=== PATIENT | female | born 1950 | race Caucasian/White ===

== ENCOUNTER 2020-09-22 09:51 | Outpatient (REF) | payer MEDICARE, SELFPAY ==
--- NOTE | 2020-09-22 | US_ITS ---
EXAMINATION: US VENOUS ULTRASOUND WITH DOPPLER LOWER EXTREMITY, LEFT CLINICAL INFORMATION: Left knee pain. Rule out DVT. COMPARISON: None TECHNIQUE: Ultrasound of the deep veins is performed from the hip to the calf with compression sonography and color and pulse Doppler assessment. Spectral analysis with color-flow imaging is performed. FINDINGS: There is normal venous compression and respiratory variation and augmented flow. The visualized common femoral vein, superficial femoral vein, profunda femoral vein, popliteal vein, and the trifurcation region shows no evidence of deep venous thrombosis. There is no significant popliteal fossa cyst. Incidental note of duplicated femoral vein. If the patient's symptoms persist, followup ultrasound in 5 days 7 days might be of value to exclude proximal propagation from a non-visualized calf vein. US/US venous duplex LE IMPRESSION: No DVT demonstrated in the left lower extremity.
== END 2020-09-22 09:52 | disposition home or self-care (01) ==
LOC: HO.US 09:51
PROVIDERS: Visit Provider Nurse Practitioner Family
DX: I83.90 Asymptomatic varicose veins of unspecified lower extremity (principal); I87.2 Venous insufficiency (chronic) (peripheral); M25.562 Pain in left knee
CPT/HCPCS: 93971

== ENCOUNTER → 2020-10-14 09:24 | Outpatient (BNVA) | payer MEDICARE, SELFPAY | PROVIDERS: PCP Internal Medicine; Referring Provider Internal Medicine; Visit Provider Surgery Vascular Surgery | DX: I83.12 Varicose veins of left lower extremity with inflammation (principal) | CPT/HCPCS: 99202 ==

== ENCOUNTER 2020-12-28 08:31 | Outpatient (REF) | payer MEDICARE, SELFPAY | END 2020-12-28 08:32 | disposition home or self-care (01) | LOC: HO.MDS 08:31 | PROVIDERS: PCP Nurse Practitioner Family; Visit Provider Internal Medicine Medical Oncology | DX: D50.9 Iron deficiency anemia, unspecified (principal) | CPT/HCPCS: 96365; 96366; J1200; J1750 ==

== ENCOUNTER → 2021-01-10 11:35 | Outpatient (BNVA) | payer MEDICARE, SELFPAY | PROVIDERS: PCP Nurse Practitioner Family; Visit Provider Internal Medicine Gastroenterology | DX: Z13.89 Encounter for screening for other disorder (principal) | CPT/HCPCS: Q3014 ==

== ENCOUNTER 2021-03-29 11:39 | Outpatient (REF) | payer MEDICARE, MEDICAID, SELFPAY ==
--- NOTE | ~2021-03-29 | US_ITS ---
EXAMINATION: US VENOUS ULTRASOUND WITH DOPPLER LOWER EXTREMITY, RIGHT CLINICAL INFORMATION: Right leg swelling. History of Covid infection. COMPARISON: Previous exam December 2016 TECHNIQUE: Ultrasound of the deep veins is performed from the hip to the calf with compression sonography and color and pulse Doppler assessment. Spectral analysis with color-flow imaging is performed. FINDINGS: There is normal venous compression and respiratory variation and augmented flow. The visualized common femoral vein, superficial femoral vein, profunda femoral vein, popliteal vein, and the trifurcation region shows no evidence of deep venous thrombosis. There is no significant popliteal fossa cyst. There is a small right knee joint effusion. US/US venous duplex LE RT IMPRESSION: No DVT demonstrated in the right lower extremity.
== END 2021-03-29 11:40 | disposition home or self-care (01) ==
LOC: HO.US 11:39
PROVIDERS: PCP Internal Medicine; Visit Provider Internal Medicine
DX: I83.12 Varicose veins of left lower extremity with inflammation (principal); Z86.16 Personal history of COVID-19
CPT/HCPCS: 93971

== ENCOUNTER 2021-06-21 10:47 | Outpatient (REF) | payer MEDICARE, MEDICAID, SELFPAY | END 2021-06-21 10:48 | disposition home or self-care (01) | LOC: HO.LAB 10:47 | PROVIDERS: Visit Provider Internal Medicine | DX: Z20.822 Contact with and (suspected) exposure to COVID-19 (principal) | CPT/HCPCS: C9803; U0003; U0005 ==

== ENCOUNTER → 2021-08-17 08:31 | Outpatient (BNVA) | payer MEDICARE, MEDICAID, SELFPAY | PROVIDERS: Visit Provider Internal Medicine | DX: E11.65 Type 2 diabetes mellitus with hyperglycemia (principal); E11.22 Type 2 diabetes mellitus with diabetic chronic kidney disease; I12.9 Hypertensive chronic kidney disease with stage 1 through stage 4 chronic kidney disease, or unspecified chronic kidney disease; N18.30 Chronic kidney disease, stage 3 unspecified; E78.5 Hyperlipidemia, unspecified; E55.9 Vitamin D deficiency, unspecified; Z79.4 Long term (current) use of insulin | CPT/HCPCS: 82947; 83036; 99212 ==

== ENCOUNTER 2021-08-17 09:19 | Outpatient (REF) | payer MEDICARE, MEDICAID, SELFPAY ==
[2021-08-17 10:31] LABS: Alanine Aminotransferase 8 U/L (0-31); Albumin Level 4.2 g/dL (3.5-5.0); Alkaline Phosphatase 74 U/L (39-117); Anion Gap 12 (12-20); Aspartate Amino Transferase 14 U/L (5-31); Bilirubin Total 0.5 mg/dL (0.0-1.0); Blood Urea Nitrogen 30 mg/dL (9-16); Calcium 9.4 mg/dL (8.4-10.2); Carbon Dioxide 27 mmol/L (22-29); Chloride 106 mmol/L (96-108); Cholesterol 159 mg/dL; Estimated Glomerular Filt Rate 40; Glucose Random 85 mg/dL (60-115); HDL Cholesterol 52 mg/dL; LDL Cholesterol Calculated 91 mg/dl; Sodium 140 mmol/L (135-145); Total Protein 7.4 g/dL (6.5-8.0); Triglycerides 83 mg/dL
[2021-08-17 10:52] LABS: Creatinine Urine 140.04 mg/dL; Microalbum/Creatinine Ratio Ur 18.5 ug/mg cr
[2021-08-17 10:55] LABS: Vitamin D 25-OH Total 32.1 ng/mL (>30)
[2021-08-19 03:41] LABS: LDL Cholesterol Direct 79 mg/dL (<100)
== END 2021-08-17 09:20 | disposition home or self-care (01) ==
LOC: HO.10HDL 09:19
PROVIDERS: Visit Provider Internal Medicine
DX: E11.9 Type 2 diabetes mellitus without complications (principal); E55.9 Vitamin D deficiency, unspecified
CPT/HCPCS: 36415; 80053; 80061; 82043; 82306; 83721

== ENCOUNTER 2021-09-05 08:50 | Outpatient (REF) | payer MEDICARE, MEDICAID, SELFPAY ==
--- NOTE | ~2021-09-05 | MM_ITS ---
EXAMINATION: MM SCREENING DIGITAL BREAST TOMOSYNTHESIS, BILATERAL CLINICAL INFORMATION: Screening. Asymptomatic. The lifetime risk of breast cancer based on the Tyrer-Cuzick Model is 3%. COMPARISON: Mammography: 07/05/2020, 07/04/2019, 03/01/2018 TECHNIQUE: Digital breast tomosynthesis is performed in both the craniocaudal and mediolateral oblique views along with computer-aided detection (CAD). Synthesized 2D images are generated from the tomosynthesis. Additional left MLO view is provided. FINDINGS: There are scattered areas of fibroglandular density (ACR BI-RADS breast composition Category b). There are no significant masses, abnormal calcifications, or other abnormalities. Parenchymal pattern is similar to prior exams. There is no developing density. The axilla and skin contours are unremarkable. No significant changes. MM/MM tomosynthesis screening BI IMPRESSION: No mammographic evidence of malignancy. ASSESSMENT: BI-RADS 1: Negative RECOMMENDATION: Routine annual mammography screening. This patient's information was entered into a reminder system with a target due date for their next mammogram.
== END 2021-09-05 08:51 | disposition home or self-care (01) ==
LOC: HO.MAMMO 08:50
PROVIDERS: Visit Provider Internal Medicine
DX: Z12.31 Encounter for screening mammogram for malignant neoplasm of breast (principal)
CPT/HCPCS: 77063; 77067

== ENCOUNTER → 2021-12-13 09:26 | Outpatient (BNVA) | payer MEDICARE, MEDICAID, SELFPAY | PROVIDERS: Visit Provider Surgery Vascular Surgery | DX: I83.12 Varicose veins of left lower extremity with inflammation (principal) | CPT/HCPCS: 99212 ==

== ENCOUNTER 2021-12-20 08:12 | Outpatient (REF) | payer MEDICARE, SELFPAY ==
--- NOTE | ~2021-12-20 | US_ITS ---
EXAMINATION: US VENOUS LOWER EXTREMITY, BILATERAL CLINICAL INFORMATION: Lower extremity varicose veins. COMPARISON: 03/29/2021, 09/22/2020 TECHNIQUE: Color-flow triplex imaging and compression Doppler were performed to evaluate both the deep and the superficial systems bilaterally. To evaluate the superficial system, the examination was performed in the upright position. Color-flow Doppler ultrasound and compression ultrasound were utilized. In addition, maneuvers were utilized to demonstrate reflux. FINDINGS: SUPERFICIAL ULTRASOUND WITH DOPPLER OF RIGHT LOWER EXTREMITY GREAT SAPHENOUS VEIN: Saphenofemoral Junction: 0.9 cm Maximum Diameter: 0.9 cm Minimum Diameter: 0.3cm Reflux: There is reflux throughout the right great saphenous vein beginning at the junction/proximal thigh. Reflux proximally measures up to 2.3 seconds. There is 2.4 seconds of reflux at the mid thigh and up to 1.0 seconds of reflux below the knee. DUPLICATED MEDIAL GREAT SAPHENOUS VEIN: Maximum Diameter: 0.3 cm Reflux: NA DUPLICATED LATERAL GREAT SAPHENOUS VEIN: Diameter: None imaged Reflux: NA SMALL SAPHENOUS VEIN: Proximal Calf: 0.2 cm Distal Calf: 0.2 cm Reflux: There is greater than 1.5 seconds of reflux at the distal calf. VEIN OF GIACOMINI: None imaged PERFORATORS: Location: Below knee, 0.2 cm Reflux: None VARICOSITIES: Location: Proximal thigh, mid thigh and above knee. Varicosities range in size between 3 mm and 4 mm. Reflux: There is greater than 2.2 seconds of reflux in all imaged varicosities. DEEP VENOUS ULTRASOUND OF THE RIGHT LOWER EXTREMITY: Common Femoral Vein: Compressible, normal respiratory variation and augmented flow. Femoral Vein: Compressible, normal color flow and augmentation. Popliteal Vein: Compressible, normal augmentation. Deep Reflux: There is no evidence of reflux in the deep system in either the common femoral vein or the popliteal vein. Wooten's Cyst: There is no evidence of a Wooten's cyst. SUPERFICIAL ULTRASOUND WITH DOPPLER OF LEFT LOWER EXTREMITY GREAT SAPHENOUS VEIN: Saphenofemoral Junction: 0.8 cm Maximum Diameter: 0.8 cm Minimum Diameter: 0.2 cm Reflux: There is reflux throughout the left great saphenous vein beginning at the junction/proximal thigh. Reflux proximally measures up to 1.1 seconds. Reflux [id number] measures up to 2.8 seconds. DUPLICATED MEDIAL GREAT SAPHENOUS VEIN: Max Diameter: 0.2 cm Reflux: None DUPLICATED LATERAL GREAT SAPHENOUS VEIN: Diameter: None imaged Reflux: NA SMALL SAPHENOUS VEIN: Proximal Calf: 0.2 cm Distal Calf: 0.2 cm Reflux: No evidence of reflux. VEIN OF GIACOMINI: None imaged PERFORATORS: Location: Proximal thigh, 0.4 cm Reflux: Greater than 2.6 seconds of reflux VARICOSITIES: Location: Mid thigh and distal calf each measuring 4 mm. Reflux: Both varicosities demonstrate greater than 2.7 seconds of reflux. DEEP VENOUS ULTRASOUND OF THE LEFT LOWER EXTREMITY: Common Femoral Vein: Compressible, normal respiratory variation and augmented flow. Femoral Vein: Compressible, normal color flow and augmentation. Popliteal Vein: Compressible, normal augmentation. Deep Reflux: There is no evidence of reflux in the deep system in either the common femoral vein or the popliteal vein. Wooten's Cyst: There is no evidence of a Wooten's cyst. US/US venous duplex LE BI IMPRESSION: 1. Bilateral great saphenous venous insufficiency. 2. Right small saphenous venous insufficiency within the distal calf. 3. Bilateral refluxing varicosities. 4. No evidence of DVT or deep venous insufficiency.
== END 2021-12-20 08:13 | disposition home or self-care (01) ==
LOC: HO.US 08:12
PROVIDERS: PCP Internal Medicine; Visit Provider Surgery Vascular Surgery
DX: I83.12 Varicose veins of left lower extremity with inflammation (principal)
CPT/HCPCS: 93970

== ENCOUNTER 2021-12-27 08:18 | Outpatient (REF) | payer MEDICARE, SELFPAY | END 2021-12-27 08:19 | disposition home or self-care (01) | LOC: HO.MDS 08:18 | PROVIDERS: PCP Internal Medicine; Visit Provider Internal Medicine Medical Oncology | DX: D50.9 Iron deficiency anemia, unspecified (principal) | CPT/HCPCS: 96365; 96366; J1200; J1750; Q0163 ==

== ENCOUNTER → 2021-12-29 09:08 | Outpatient (BNVA) | payer MEDICARE, SELFPAY | PROVIDERS: PCP Internal Medicine; Visit Provider Surgery Vascular Surgery | DX: I83.11 Varicose veins of right lower extremity with inflammation (principal) | CPT/HCPCS: 99212 ==

== ENCOUNTER → 2021-12-30 08:10 | Outpatient (BNVA) | payer MEDICARE, SELFPAY | PROVIDERS: PCP Internal Medicine; Visit Provider Surgery Vascular Surgery | DX: I83.11 Varicose veins of right lower extremity with inflammation (principal) | CPT/HCPCS: 36475 ==

== ENCOUNTER 2022-01-02 13:45 | Outpatient (REF) | payer MEDICARE, SELFPAY ==
--- NOTE | ~2022-01-02 | US_ITS ---
EXAMINATION: US VENOUS ULTRASOUND WITH DOPPLER LOWER EXTREMITY, RIGHT CLINICAL INFORMATION: Pain right leg. Status post radiofrequency ablation. COMPARISON: None. TECHNIQUE: Ultrasound of the deep veins is performed from the hip to the calf with compression sonography and color and pulse Doppler assessment. Spectral analysis with color-flow imaging is performed. FINDINGS: There is thrombus with absent flow visualized in the right greater saphenous vein approximately 10.5 cm from the saphenofemoral junction. If the patient's symptoms persist, followup ultrasound in 5 days 7 days might be of value to exclude proximal propagation from a non-visualized calf vein. US/US venous duplex LE RT IMPRESSION: Status post RF ablation. There is thrombus visualized in the right greater saphenous vein approximately 10 cm from femoral/greater saphenous venous junction.
== END 2022-01-02 13:46 | disposition home or self-care (01) ==
LOC: HO.US 13:45
PROVIDERS: Visit Provider Surgery Vascular Surgery
DX: M79.604 Pain in right leg (principal)
CPT/HCPCS: 93971

== ENCOUNTER → 2022-01-17 08:39 | Outpatient (BNVA) | payer MEDICARE, SELFPAY | PROVIDERS: PCP Internal Medicine; Visit Provider Surgery Vascular Surgery | DX: I83.12 Varicose veins of left lower extremity with inflammation (principal) | CPT/HCPCS: 99212 ==

== ENCOUNTER → 2022-02-17 08:41 | Outpatient (BNVA) | payer MEDICARE, SELFPAY | PROVIDERS: PCP Internal Medicine; Visit Provider Surgery Vascular Surgery | DX: I83.12 Varicose veins of left lower extremity with inflammation (principal) | CPT/HCPCS: 36475 ==

== ENCOUNTER 2022-02-20 11:43 | Outpatient (REF) | payer MEDICARE, SELFPAY ==
--- NOTE | ~2022-02-20 | US_ITS ---
EXAMINATION: US VENOUS ULTRASOUND WITH DOPPLER LOWER EXTREMITY, LEFT CLINICAL INFORMATION: Post greater saphenous vein RF ablation 3 days ago COMPARISON: Previous exam most recent December 2021 TECHNIQUE: Ultrasound of the deep veins is performed from the hip to the calf with compression sonography and color and pulse Doppler assessment. Spectral analysis with color-flow imaging is performed. FINDINGS: There is normal venous compression and respiratory variation and augmented flow. The visualized common femoral vein, superficial femoral vein, profunda femoral vein, popliteal vein, and the trifurcation region shows no evidence of deep venous thrombosis. There is echogenic material seen in the greater saphenous vein. This extends to 2 cm from the saphenofemoral junction. The greater saphenous vein is closed. There is no significant popliteal fossa cyst. US/US venous duplex LE LT IMPRESSION: No DVT demonstrated in the left lower extremity.
== END 2022-02-20 11:44 | disposition home or self-care (01) ==
LOC: HO.US 11:43
PROVIDERS: Visit Provider Surgery Vascular Surgery
DX: M79.605 Pain in left leg (principal)
CPT/HCPCS: 93971

== ENCOUNTER → 2022-03-02 09:46 | Outpatient (BNVA) | payer MEDICARE, SELFPAY | PROVIDERS: PCP Internal Medicine; Visit Provider Surgery Vascular Surgery | DX: I83.12 Varicose veins of left lower extremity with inflammation (principal); Z98.890 Other specified postprocedural states | CPT/HCPCS: 99212 ==

== ENCOUNTER → 2022-03-17 08:41 | Outpatient (BNVA) | payer MEDICARE, SELFPAY | PROVIDERS: PCP Internal Medicine; Visit Provider Surgery Vascular Surgery | DX: I83.12 Varicose veins of left lower extremity with inflammation (principal) | CPT/HCPCS: 37765 ==

== ENCOUNTER → 2022-04-06 08:17 | Outpatient (BNVA) | payer MEDICARE, SELFPAY | PROVIDERS: Visit Provider Internal Medicine | DX: E11.65 Type 2 diabetes mellitus with hyperglycemia (principal); E11.22 Type 2 diabetes mellitus with diabetic chronic kidney disease; I12.9 Hypertensive chronic kidney disease with stage 1 through stage 4 chronic kidney disease, or unspecified chronic kidney disease; N18.30 Chronic kidney disease, stage 3 unspecified; E78.5 Hyperlipidemia, unspecified; E55.9 Vitamin D deficiency, unspecified; Z79.4 Long term (current) use of insulin | CPT/HCPCS: Q3014 ==

== ENCOUNTER 2022-04-20 08:24 | Outpatient (REF) | payer MEDICARE, SELFPAY ==
[2022-04-20 09:14] LABS: Estimated Average Glucose 128 mg/dL; Hemoglobin A1c % 6.1 %
[2022-04-20 09:55] LABS: Alanine Aminotransferase 8 U/L (0-31); Albumin Level 4.4 g/dL (3.5-5.0); Alkaline Phosphatase 75 U/L (39-117); Anion Gap 13 (12-20); Aspartate Amino Transferase 15 U/L (5-31); Bilirubin Total 0.4 mg/dL (0.0-1.0); Blood Urea Nitrogen 33 mg/dL (9-16); Calcium 9.5 mg/dL (8.4-10.2); Carbon Dioxide 26 mmol/L (22-29); Chloride 106 mmol/L (96-108); Cholesterol 190 mg/dL; Estimated Glomerular Filt Rate 44; Glucose Random 108 mg/dL (60-115); HDL Cholesterol 44 mg/dL; LDL Cholesterol Calculated 121 mg/dl; Potassium 4.6 mmol/L (3.3-5.1); Sodium 140 mmol/L (135-145); Total Protein 7.6 g/dL (6.5-8.0); Triglycerides 126 mg/dL
[2022-04-20 11:57] LABS: Creatinine Urine 90.19 mg/dL; Microalbum/Creatinine Ratio Ur 34.3 ug/mg cr
[2022-04-22 04:31] LABS: LDL Cholesterol Direct 116 mg/dL (<100)
== END 2022-04-20 08:25 | disposition home or self-care (01) ==
LOC: HO.LAB 08:24
PROVIDERS: PCP Internal Medicine; Visit Provider Internal Medicine
DX: I83.12 Varicose veins of left lower extremity with inflammation (principal); E11.65 Type 2 diabetes mellitus with hyperglycemia; Z79.4 Long term (current) use of insulin
CPT/HCPCS: 36415; 80053; 80061; 82043; 83036; 83721; 99212

== ENCOUNTER 2022-07-06 08:51 | Outpatient (REF) | payer OTHER, SELFPAY ==
[2022-07-06 12:23] LABS: MANUAL DIFF FLAG NO
[2022-07-06 12:28] LABS: Basophils Percent Auto 0.5 % (0-2); Eosinophils Absolute Auto 0.3 X10*3/uL (0.0-0.4); Eosinophils Percent Auto 3.8 % (0-4); Hematocrit 32.3 % (37.0-47.0); Imm Gran Abs Auto 0.03 X10*3/uL (0.00-0.03); Imm Gran Pct Auto 0.4 % (0.0-0.4); Lymphocytes Absolute Auto 3.2 X10*3/uL (1.2-4.9); Lymphocytes Percent Auto 38.4 % (20-40); Mean Corpuscular Hemoglobin 27.1 pg (27.0-33.0); Mean Corpuscular Volume 87.5 fL (80.0-98.0); Mean Platelet Volume 11.1 fL (9.4-12.3); Monocytes Absolute Auto 0.7 X10*3/uL (0.1-1.2); Monocytes Percent Auto 8.7 % (2-11); Neutrophils Percent Auto 48.2 % (45-73); Platelet Count 231 X10*3/uL (160-400); Red Blood Count 3.69 X10*6/uL (4.20-5.50); Red Cell Distribution Width 13.2 % (11.0-16.0); White Blood Count 8.3 X10*3/uL (4.8-10.8)
[2022-07-06 13:04] LABS: Ferritin 760 ng/mL (10-250)
== END 2022-07-06 08:52 | disposition home or self-care (01) ==
LOC: HO.MDS 08:51
PROVIDERS: Visit Provider Internal Medicine Medical Oncology
DX: D50.9 Iron deficiency anemia, unspecified (principal)
CPT/HCPCS: 36415; 82728; 85025; 96365; J2916

== ENCOUNTER 2022-08-15 09:16 | Outpatient (REF) | payer OTHER, SELFPAY ==
[2022-08-15 11:41] LABS: Estimated Average Glucose 134 mg/dL; Hemoglobin A1c % 6.3 %
[2022-08-15 12:05] LABS: Alanine Aminotransferase 6 U/L (0-31); Albumin Level 4.1 g/dL (3.5-5.0); Alkaline Phosphatase 81 U/L (39-117); Anion Gap 17 (12-20); Aspartate Amino Transferase 17 U/L (5-31); Bilirubin Total 0.5 mg/dL (0.0-1.0); Blood Urea Nitrogen 27 mg/dL (9-16); Calcium 9.3 mg/dL (8.4-10.2); Carbon Dioxide 24 mmol/L (22-29); Chloride 105 mmol/L (96-108); Estimated Glomerular Filt Rate 51; Glucose Random 93 mg/dL (60-115); Potassium 4.4 mmol/L (3.3-5.1); Sodium 142 mmol/L (135-145); Total Protein 7.5 g/dL (6.5-8.0)
== END 2022-08-15 09:17 | disposition home or self-care (01) ==
LOC: HO.HMGCX 09:16
PROVIDERS: Absent Provider Internal Medicine; Visit Provider Internal Medicine
DX: E11.65 Type 2 diabetes mellitus with hyperglycemia (principal); I10 Essential (primary) hypertension; R42 Dizziness and giddiness; Z79.4 Long term (current) use of insulin
CPT/HCPCS: 36415; 80053; 83036; 93880

== ENCOUNTER 2022-09-19 08:20 | Outpatient (REF) | payer OTHER, SELFPAY ==
--- NOTE | ~2022-09-19 | MM_ITS ---
EXAMINATION: MM SCREENING DIGITAL BREAST TOMOSYNTHESIS, BILATERAL CLINICAL INFORMATION: Screening. Asymptomatic. COMPARISON: Mammography: September 05, 2021 and studies dating back to July 25, 2012 TECHNIQUE: Digital breast tomosynthesis is performed in both the craniocaudal and mediolateral oblique views along with computer-aided detection (CAD). Synthesized 2D images are generated from the tomosynthesis. Additional right exaggerated craniocaudal view performed. FINDINGS: There are scattered areas of fibroglandular density (ACR BI-RADS breast composition Category b). There are no significant masses, abnormal calcifications, or other abnormalities. Skin lesions are present giving the appearance of circumscribed densities anterior aspect of the left breast. MM/MM tomosynthesis screening BI IMPRESSION: No significant changes ASSESSMENT: BI-RADS 1: Negative RECOMMENDATION: Routine annual mammography screening. This patient's information was entered into a reminder system with a target due date for their next mammogram.
== END 2022-09-19 08:21 | disposition home or self-care (01) ==
LOC: HO.MAMMO 08:20
PROVIDERS: PCP Internal Medicine; Visit Provider Internal Medicine
DX: Z12.31 Encounter for screening mammogram for malignant neoplasm of breast (principal)
CPT/HCPCS: 77063; 77067

== ENCOUNTER 2022-09-21 10:41 | Outpatient (REF) | payer OTHER, SELFPAY ==
--- NOTE | ~2022-09-21 | US_ITS ---
EXAMINATION: US VENOUS ULTRASOUND WITH DOPPLER LOWER EXTREMITY, RIGHT CLINICAL INFORMATION: Right lower extremity edema COMPARISON: None TECHNIQUE: Ultrasound of the deep veins is performed from the hip to the calf with compression sonography and color and pulse Doppler assessment. Spectral analysis with color-flow imaging is performed. FINDINGS: There is normal venous compression and respiratory variation and augmented flow. The visualized common femoral vein, superficial femoral vein, profunda femoral vein, popliteal vein, and the trifurcation region shows no evidence of deep venous thrombosis. The peroneal veins could not be seen. There is no significant popliteal fossa. Incidental Note is made of right calf varicosities . If the patient's symptoms persist, followup ultrasound in 5 days 7 days might be of value to exclude proximal propagation from a non-visualized calf vein. US/US venous duplex LE RT IMPRESSION: No DVT demonstrated in the right lower extremity.
== END 2022-09-21 10:42 | disposition home or self-care (01) ==
LOC: HO.US 10:41
PROVIDERS: Absent Provider Internal Medicine; PCP Internal Medicine; Visit Provider Family Medicine
DX: R22.41 Localized swelling, mass and lump, right lower limb (principal)
CPT/HCPCS: 93971

== ENCOUNTER 2022-09-27 08:14 | Outpatient (REF) | payer OTHER, SELFPAY | END 2022-09-27 08:15 | disposition home or self-care (01) | LOC: HO.MDS 08:14 | PROVIDERS: Visit Provider Internal Medicine Medical Oncology | DX: D50.9 Iron deficiency anemia, unspecified (principal) | CPT/HCPCS: 96365; J1756 ==

== ENCOUNTER 2022-10-02 08:19 | Outpatient (REF) | payer OTHER, SELFPAY | END 2022-10-02 08:20 | disposition home or self-care (01) | LOC: HO.MDS 08:19 | PROVIDERS: Visit Provider Internal Medicine Medical Oncology | DX: D50.9 Iron deficiency anemia, unspecified (principal) | CPT/HCPCS: 96365; J1756 ==

== ENCOUNTER 2022-10-09 08:16 | Outpatient (REF) | payer OTHER, SELFPAY | END 2022-10-09 08:17 | disposition home or self-care (01) | LOC: HO.MDS 08:16 | PROVIDERS: Visit Provider Internal Medicine Medical Oncology | DX: D50.9 Iron deficiency anemia, unspecified (principal) | CPT/HCPCS: 96365; J1756 ==

== ENCOUNTER 2022-10-16 08:29 | Outpatient (REF) | payer OTHER, SELFPAY ==
[2022-10-16 09:02] LABS: MANUAL DIFF FLAG NO
[2022-10-16 09:05] LABS: Basophils Absolute Auto 0.1 X10*3/uL (0.0-0.2); Basophils Percent Auto 0.8 % (0-2); Eosinophils Absolute Auto 0.3 X10*3/uL (0.0-0.4); Eosinophils Percent Auto 3.9 % (0-4); Hemoglobin 10.1 g/dl (12.0-16.0); Imm Gran Abs Auto 0.03 X10*3/uL (0.00-0.03); Imm Gran Pct Auto 0.5 % (0.0-0.4); Lymphocytes Absolute Auto 2.2 X10*3/uL (1.2-4.9); Lymphocytes Percent Auto 32.6 % (20-40); Mean Corpuscular HGB Conc 31.6 g/dl (31.0-35.0); Mean Corpuscular Hemoglobin 27.7 pg (27.0-33.0); Mean Corpuscular Volume 87.7 fL (80.0-98.0); Mean Platelet Volume 11.5 fL (9.4-12.3); Monocytes Absolute Auto 0.6 X10*3/uL (0.1-1.2); Monocytes Percent Auto 8.8 % (2-11); Neutrophils Absolute Auto 3.5 x10*3/uL (2.0-8.3); Neutrophils Percent Auto 53.4 % (45-73); Platelet Count 204 X10*3/uL (160-400); Red Blood Count 3.65 X10*6/uL (4.20-5.50); Red Cell Distribution Width 13.9 % (11.0-16.0); White Blood Count 6.6 X10*3/uL (4.8-10.8)
== END 2022-10-16 08:30 | disposition home or self-care (01) ==
LOC: HO.MDS 08:29
PROVIDERS: Visit Provider Internal Medicine Medical Oncology
DX: D50.9 Iron deficiency anemia, unspecified (principal)
CPT/HCPCS: 36415; 85025; 96365; J1756

== ENCOUNTER 2022-10-23 09:49 | Outpatient (REF) | payer OTHER, SELFPAY | END 2022-10-23 09:50 | disposition home or self-care (01) | LOC: HO.MDS 09:49 | PROVIDERS: Visit Provider Internal Medicine Medical Oncology | DX: D50.9 Iron deficiency anemia, unspecified (principal) | CPT/HCPCS: 82947; 96365; 99212; J1756 ==

== ENCOUNTER 2022-11-02 07:59 | Outpatient (REF) | payer OTHER, SELFPAY | END 2022-11-02 08:00 | disposition home or self-care (01) | LOC: HO.MDS 07:59 | PROVIDERS: Visit Provider Internal Medicine Medical Oncology | DX: D50.9 Iron deficiency anemia, unspecified (principal) | CPT/HCPCS: 96365; J1756 ==

== ENCOUNTER 2022-11-09 07:31 | Outpatient (REF) | payer OTHER, SELFPAY | END 2022-11-09 07:32 | disposition home or self-care (01) | LOC: HO.MDS 07:31 | PROVIDERS: Visit Provider Internal Medicine Medical Oncology | DX: D50.9 Iron deficiency anemia, unspecified (principal) | CPT/HCPCS: 96365; J1756 ==

== ENCOUNTER 2022-11-16 11:31 | Outpatient (REF) | payer OTHER, SELFPAY ==
[2022-11-16 11:50] LABS: MANUAL DIFF FLAG NO
[2022-11-16 11:54] LABS: Basophils Absolute Auto 0.1 X10*3/uL (0.0-0.2); Basophils Percent Auto 0.7 % (0-2); Eosinophils Absolute Auto 0.3 X10*3/uL (0.0-0.4); Hematocrit 34.9 % (37.0-47.0); Imm Gran Abs Auto 0.04 X10*3/uL (0.00-0.03); Imm Gran Pct Auto 0.4 % (0.0-0.4); Lymphocytes Percent Auto 22.7 % (20-40); Mean Corpuscular HGB Conc 31.5 g/dl (31.0-35.0); Mean Corpuscular Hemoglobin 28.1 pg (27.0-33.0); Mean Platelet Volume 10.9 fL (9.4-12.3); Monocytes Absolute Auto 0.8 X10*3/uL (0.1-1.2); Monocytes Percent Auto 9.1 % (2-11); Neutrophils Absolute Auto 5.8 x10*3/uL (2.0-8.3); Neutrophils Percent Auto 64.1 % (45-73); Platelet Count 225 X10*3/uL (160-400); Red Blood Count 3.92 X10*6/uL (4.20-5.50); Red Cell Distribution Width 14.3 % (11.0-16.0)
== END 2022-11-16 11:32 | disposition home or self-care (01) ==
LOC: HO.MDS 11:31
PROVIDERS: Internal Medicine Medical Oncology; Visit Provider Hospitalist
DX: D50.9 Iron deficiency anemia, unspecified (principal)
CPT/HCPCS: 36415; 85025; 96365; J1756

== ENCOUNTER 2023-01-24 08:57 | Outpatient (REF) | payer OTHER, SELFPAY ==
[2023-01-24 09:50] LABS: Estimated Average Glucose 140 mg/dL; Hemoglobin A1c % 6.5 %
[2023-01-24 10:21] LABS: Alanine Aminotransferase 7 U/L (0-31); Albumin Level 4.2 g/dL (3.5-5.0); Alkaline Phosphatase 81 U/L (39-117); Anion Gap 13 (12-20); Aspartate Amino Transferase 16 U/L (5-31); Bilirubin Total 0.8 mg/dL (0.0-1.0); Blood Urea Nitrogen 29 mg/dL (9-16); Calcium 9.4 mg/dL (8.4-10.2); Carbon Dioxide 28 mmol/L (22-29); Chloride 106 mmol/L (96-108); Cholesterol 137 mg/dL; Estimated Glomerular Filt Rate 48; Glucose Random 111 mg/dL (60-115); HDL Cholesterol 37 mg/dL; LDL Cholesterol Calculated 72 mg/dl; Potassium 4.7 mmol/L (3.3-5.1); Sodium 142 mmol/L (135-145); Total Protein 7.4 g/dL (6.5-8.0); Triglycerides 144 mg/dL
[2023-01-25 17:23] LABS: LDL Cholesterol Direct 66 mg/dL (<100)
== END 2023-01-24 08:58 | disposition home or self-care (01) ==
LOC: HO.LAB 08:57
PROVIDERS: PCP Internal Medicine; Visit Provider Internal Medicine
DX: E11.65 Type 2 diabetes mellitus with hyperglycemia (principal); Z79.4 Long term (current) use of insulin
CPT/HCPCS: 36415; 80053; 80061; 83036; 83721

== ENCOUNTER → 2023-01-31 08:01 | Outpatient (BNVA) | payer OTHER, SELFPAY | PROVIDERS: PCP Internal Medicine; Visit Provider Internal Medicine | DX: E11.65 Type 2 diabetes mellitus with hyperglycemia (principal); E11.22 Type 2 diabetes mellitus with diabetic chronic kidney disease; I12.9 Hypertensive chronic kidney disease with stage 1 through stage 4 chronic kidney disease, or unspecified chronic kidney disease; N18.30 Chronic kidney disease, stage 3 unspecified; E78.5 Hyperlipidemia, unspecified; Z79.4 Long term (current) use of insulin | CPT/HCPCS: 82947; 99212 ==

== ENCOUNTER 2023-03-07 07:33 | Day surgery (SDC) | payer OTHER, SELFPAY ==
--- NOTE | 2023-03-06 13:47 | P.CONAN_ITS ---
Documented by User: Antonia Herrera NP 03/06/23 13:49 HPI - Anesthesia Eval Consult details Narrative: 73yo F for Colonoscopy PMFSH Active Problems Active Problems: All Active Problems (Updated 03/06/23 @ 13:17 by Deidra Malloy RN) Varicose veins of left lower extremity with inflammation (Acute) Acute on chronic blood loss anemia (Acute) Varicose veins of right lower extremity with inflammation (Acute) Herpes zoster (Acute) CKD (chronic kidney disease) (Acute) Vitamin D deficiency (Acute) HLD (hyperlipidemia) (Acute) HTN (hypertension) (Acute) T2DM (type 2 diabetes mellitus) (Acute) Diabetes (Acute) Past Medical History Medical History Cataract of both eyes CKD (chronic kidney disease) Diabetes HLD (hyperlipidemia) HTN (hypertension) Stroke T2DM (type 2 diabetes mellitus) Vitamin D deficiency Family History Family History Father No problems noted. Mother No problems noted. Daughter Arthritis Daughter Arthritis Daughter Arthritis Surgical History Surgical History H/O: hysterectomy History of right shoulder fracture History of temporal artery biopsy Hx of colonoscopy Hx of elbow surgery Social History Social History Household Members: Children Housing: Apartment Are you a primary client care consultant to a significant other at home: No Do you presently have visiting nurse or other home services: Yes Alcohol intake: never Patient Tobacco Use Status: Never used Tobacco service: No Current occupational status: disabled Meds Allergies Allergy/AdvReac Type Severity Reaction Status Date / Time penicillin G [PENICILLIN G] Allergy Mild PRURITIS Verified 01/31/23 08:13 amoxicillin Allergy Unknown rash, Verified 01/31/23 08:13 itching Home Medications Medication Instructions Recorded Confirmed Last Taken Type albuterol sulfate 90 mcg/actuation 2 puff inhalation Q6H PRN 10/14/20 01/31/23 03/04/23 History aerosol inhaler (ProAir HFA) Shortness Of Breath gabapentin 100 mg capsule 100 mg PO BID 10/14/20 01/31/23 03/06/23 History meclizine 12.5 mg tablet 25 mg PO TID 10/14/20 01/31/23 03/06/23 History acetaminophen 500 mg tablet 500 mg PO DAILY PRN Pain 12/13/21 01/31/23 03/06/23 History benazepril 20 1 tab PO DAILY 12/13/21 01/31/23 03/07/23 History mg-hydrochlorothiazide 12.5 mg tablet docusate sodium 100 mg capsule 100 mg PO NEEDED PRN 12/13/21 10/23/22 03/06/23 History Constipation insulin glargine 100 unit/mL (3 18 unit subcut DAILY 12/13/21 01/31/23 03/06/23 History mL) subcutaneous pen (Lantus Solostar U-100 Insulin) ketorolac 0.5 % eye drops 0 drp ophthalmic (eye) DAILY 12/13/21 01/31/23 03/06/23 History timolol maleate 0.5 % eye drops 1 drp ophthalmic (eye) BID 12/13/21 01/31/23 03/06/23 History comp.stocking,thigh,long,x-lrg 12/15/21 10/23/22 03/06/23 History sertraline 50 mg tablet 50 mg PO QAM 02/17/22 01/31/23 03/06/23 History calcium carbonate 600 mg-vitamin 1 tab PO BID 04/20/22 01/31/23 03/06/23 History D3 10 mcg (400 unit) chewable tablet (Calcium 600 with Vitamin D3) Exam Exam Date and Time: March 06, 2023 134 Pertinent Lab Results Pertinent Lab Results: Laboratory Tests 11/16/22 01/24/23 11:47 09:07 WBC 9.0 Hgb 11.0 L Hct 34.9 L Plt Count 225 Sodium 142 Potassium 4.7 Chloride 106 Carbon Dioxide 28 BUN 29 H Creatinine 1.12 Assessment and Plan Assessment Anesthesia Assessment: Chart Reviewed Documented by User: Lisa Carvajal MD 03/07/23 09:23 [facility] Past Medical History Medical History Cataract of both eyes CKD (chronic kidney disease) Diabetes HLD (hyperlipidemia) HTN (hypertension) Stroke T2DM (type 2 diabetes mellitus) Vitamin D deficiency Family History Family History Father No problems noted. Mother No problems noted. Daughter Arthritis Daughter Arthritis Daughter Arthritis Family history of problems with anesthesia: No Surgical History Surgical History H/O: hysterectomy History of right shoulder fracture History of temporal artery biopsy Hx of colonoscopy Hx of elbow surgery History of Problems with Anesthesia: No Social History Social History Household Members: Children Housing: Apartment Are you a primary client care consultant to a significant other at home: No Do you presently have visiting nurse or other home services: Yes Alcohol intake: never Patient Tobacco Use Status: Never used Tobacco service: No Current occupational status: disabled Meds Allergies Allergy/AdvReac Type Severity Reaction Status Date / Time penicillin G [PENICILLIN G] Allergy Mild PRURITIS Verified 01/31/23 08:13 amoxicillin Allergy Unknown rash, Verified 01/31/23 08:13 itching Home Medications Medication Instructions Recorded Confirmed Last Taken Type albuterol sulfate 90 mcg/actuation 2 puff inhalation Q6H PRN 10/14/20 01/31/23 03/04/23 History aerosol inhaler (ProAir HFA) Shortness Of Breath gabapentin 100 mg capsule 100 mg PO BID 10/14/20 01/31/23 03/06/23 History meclizine 12.5 mg tablet 25 mg PO TID 10/14/20 01/31/23 03/06/23 History acetaminophen 500 mg tablet 500 mg PO DAILY PRN Pain 12/13/21 01/31/23 03/06/23 History benazepril 20 1 tab PO DAILY 12/13/21 01/31/23 03/07/23 History mg-hydrochlorothiazide 12.5 mg tablet docusate sodium 100 mg capsule 100 mg PO NEEDED PRN 12/13/21 10/23/22 03/06/23 History Constipation insulin glargine 100 unit/mL (3 18 unit subcut DAILY 12/13/21 01/31/23 03/06/23 History mL) subcutaneous pen (Lantus Solostar U-100 Insulin) ketorolac 0.5 % eye drops 0 drp ophthalmic (eye) DAILY 12/13/21 01/31/23 03/06/23 History timolol maleate 0.5 % eye drops 1 drp ophthalmic (eye) BID 12/13/21 01/31/23 03/06/23 History comp.stocking,thigh,long,x-lrg 12/15/21 10/23/22 03/06/23 History sertraline 50 mg tablet 50 mg PO QAM 02/17/22 01/31/23 03/06/23 History calcium carbonate 600 mg-vitamin 1 tab PO BID 04/20/22 01/31/23 03/06/23 History D3 10 mcg (400 unit) chewable tablet (Calcium 600 with Vitamin D3) Exam Height,Weight and Vital Signs: Height 4 ft 11 in Weight 85.729 kg Vital Signs Temp Pulse Resp BP Pulse Ox O2 Del Method 96.9 F 69 16 175/86 H 97 Room Air 03/07/23 08:00 03/07/23 08:00 03/07/23 08:00 03/07/23 08:00 03/07/23 08:00 03/07/23 08:00 Pertinent Lab Results Pertinent Lab Results: Laboratory Tests 11/16/22 01/24/23 11:47 09:07 WBC 9.0 Hgb 11.0 L Hct 34.9 L Plt Count 225 Sodium 142 Potassium 4.7 Chloride 106 Carbon Dioxide 28 BUN 29 H Creatinine 1.12 Lab Results 03/07/23 Range/Units 07:57 POC Glucose 123 H (60-115) mg/dL Narrative Narrative: Facial drooping left. Right eye partially closed Airway Mallampati Class: III (Small mouth opening) TM Dist: >3cm Neck ROM: Full (Some right sided neck pain) Loose/Missing/Broken Teeth: Yes (Some teeth missing. Denies broken or loose teeth) Heart: RRR Lungs: CTAB Assessment and Plan Assessment Anesthesia Assessment: Anesthesia Plan Discussed Final Anesthetic Review Family History of Problems with Anesthesia: No History of Problems with Anesthesia: No NPO: Yes ASA Class: III Final Preanesthetic Review: No Changes in Pt Med Stat, Meds/Allgs Chart Reviewed, Consent Obtained/Reviewed and Anes Risks/Benef Reviewed Patient Risk: Intermediate Procedure Risk: Low Assessment/Block/Sedation in SS: Assess/Block/Sedation-SS Anesthetic Plan Anesthetic Plan: MAC: Disposition: Standard PACU
[2023-03-07 06:07] VITALS: BMI 38.1
[2023-03-07 08:00] VITALS: BP 175/86; PULSE 69; RESP 16; TEMP 36.1; O2SAT 97
[2023-03-07 08:00] LABS: Glucose, Whole Blood 123 mg/dL (60-115)
[2023-03-07] MEDS: Lactated Ringers 1,000 ML 100 ML IVCONT (08:25)
[2023-03-07 09:14] VITALS: BP 137/74; PULSE 79; RESP 15; TEMP 36.3; O2SAT 97
--- NOTE | 2023-03-07 09:15 | PM.OP ---
Brief Operative Note Date of Service: 03/07/23 Pre-op diagnosis: Screening Post-op diagnosis: other (Colon polyp, incomplete colonoscopy due to poor prep) Procedure: Colonoscopy to the splenic flexure with bx/removal of polyp with placement of 2 Resolution clips Surgeon: Rod Arthur Anesthesia: MAC Was an Globe Cleaner used for this Procedure?: No Estimated blood loss (mL): 3.0 Pathology: other (A. Polyp at 40cm) Condition: stable Disposition: PACU
[2023-03-07 09:28] VITALS: BP 144/72; PULSE 62; RESP 15; O2SAT 97
[2023-03-07 09:43] VITALS: BP 166/73; PULSE 62; RESP 16; TEMP 36.8; O2SAT 97
--- NOTE | 2023-03-07 11:29 | OP_ITS ---
DATE OF SERVICE: 03/07/2023 SURGEON: Rod Arthur MD INDICATIONS: The patient presents for evaluation of colorectal cancer screening. Full consent has been obtained from her for this, including risks of bleeding and perforation. PREOPERATIVE DIAGNOSIS: Colorectal cancer screening. POSTOPERATIVE DIAGNOSIS: PROCEDURE PERFORMED: Colonoscopy to the region of the splenic flexure with biopsy and removal of polyp, and placement of two Resolution clips. ESTIMATED BLOOD LOSS: COMPLICATIONS: ANESTHESIA: Monitored anesthesia care. ASSISTANTS: SPECIMENS: POSTOPERATIVE DIAGNOSIS: Colorectal cancer screening, incomplete exam due to poor prep, colon polyp, diverticulosis and internal hemorrhoids. DESCRIPTION OF PROCEDURE: The patient was placed in the left lateral decubitus position. The digital rectal exam revealed no abnormalities. The Olympus video pediatric colonoscope was entered into the rectum and advanced to what appeared be the region of the splenic flexure, but could not proceed further due to a very poor prep with a lot of solid stool both proximally and distally to this area. The scope was withdrawn as slow as possible to assess the colon as best as possible. However, visualization was severely limited. However, despite that, I did visualize an approximately 5 or 6 mm probable inflammatory polyp at 40 cm which was biopsied and completely removed with a cold biopsy forceps. Due to persistent oozing from the site, I did place two Resolution clips with good deployment and good hemostasis. I did not visualize any other polyps, colitis, nor angiodysplasia, although again visualization was severely limited. There was some mild diverticulosis. In the rectum, the scope was retroflexed visualizing some internal hemorrhoids, but again the rectal mucosa was partially obscured. Scope was straightened and withdrawn from the patient. She tolerated the procedure well and returned to the recovery area in stable condition. IMPRESSION: 1. Small colon polyp. 2. Diverticulosis. 3. Internal hemorrhoids. 4. Poor prep with incomplete exam. PLAN: The results of the biopsies will be checked. I would recommend that she will return after a two-day prep. This will be discussed with a patient and her daughter today and will be arranged for the future. The results of the pathology will be checked as well. She was advised not to use any aspirin or NSAIDs for 1 week. ADDENDUM: I just spoke with the patient's daughter, Ashlyn, after the procedure. Apparently, the patient mistakenly only used less than one third of the bottle of MiraLAX last night with the prep instead of the entire bottle. Therefore, I do not think she will need a two-day prep, but will need a repeat colonoscopy with the correct prep being done which includes the complete bottle of the MiraLax powder. My office will arrange that. MD RUTH Zuñiga/SAMINA / [id number] MTDD
== END 2023-03-07 10:34 | disposition home or self-care (01) ==
PROVIDERS: PCP Internal Medicine; Visit Provider Internal Medicine
PROC: 0DJD8ZZ Inspection of Lower Intestinal Tract, Via Natural or Artificial Opening Endoscopic (ICD-10-PCS; CPT 45378; principal; 2023-03-07 08:30)
DX: Z12.11 Encounter for screening for malignant neoplasm of colon (principal); D12.4 Benign neoplasm of descending colon; K57.30 Diverticulosis of large intestine without perforation or abscess without bleeding; K64.8 Other hemorrhoids; E78.5 Hyperlipidemia, unspecified; D64.9 Anemia, unspecified; E55.9 Vitamin D deficiency, unspecified; E11.22 Type 2 diabetes mellitus with diabetic chronic kidney disease; I12.9 Hypertensive chronic kidney disease with stage 1 through stage 4 chronic kidney disease, or unspecified chronic kidney disease; N18.9 Chronic kidney disease, unspecified; Z79.4 Long term (current) use of insulin; Z79.82 Long term (current) use of aspirin; Z79.899 Other long term (current) drug therapy; Z88.0 Allergy status to penicillin; Z88.1 Allergy status to other antibiotic agents; Z86.73 Personal history of transient ischemic attack (TIA), and cerebral infarction without residual deficits
CPT/HCPCS: 45380; 82947; 88305

== ENCOUNTER 2023-05-23 07:51 | Outpatient (AMB) | payer OTHER, SELFPAY ==
--- NOTE | 2023-05-23 07:50 | MHC.OFFVIS ---
Intake Intake Visit Reasons: F/U T2DM Allergies penicillin G [PENICILLIN G] Allergy (Mild, Verified 05/23/23 08:16) PRURITIS amoxicillin Allergy (Unknown, Verified 05/23/23 08:16) rash, itching Medication List - Last Reconciled 05/23/23 by Victorina Garcia, DO acetaminophen 500 mg PO DAILY PRN albuterol sulfate 90 mcg/actuation (ProAir HFA) 2 puffs inhalation Q6H PRN benazepril-hydrochlorothiazide 20-12.5 mg 1 tab PO DAILY blood sugar diagnostic 1 strip miscellaneous TID 90 days calcium carbonate-vitamin D3 600 mg-10 mcg (400 unit) (Calcium 600 with Vitamin D3) 1 tab PO BID [comp.stocking,thigh,long,x-lrg ] diclofenac sodium 1% 2 grams topical BID PRN docusate sodium 100 mg PO NEEDED PRN dulaglutide (Trulicity) 3 mg (0.5 mL) subcut QWEEK 30 days gabapentin 100 mg PO BID insulin glargine (Lantus Solostar U-100 Insulin) 18 units subcut DAILY ketorolac 0.5% 0 drps ophthalmic (eye) DAILY lancets (Snapjoyuch Delica Lancets) 3 times a day meclizine 25 mg PO TID pen needle,diabetic dual safty (BD AutoShield Duo Pen Needle) 2x daily rosuvastatin 20 mg PO DAILY 30 days sertraline 50 mg PO QAM timolol maleate 0.5% 1 drp ophthalmic (eye) BID HPI HPI Comments History of Present Illness Details 73 YO F with PMHx T2DM, HTN, HLD who is seen in F/U for T2DM. ?Initially diagnosed with T2DM in 1991 during routine screening exam. ?Was initially started on treatment with Metformin. This was stopped due to diminished GFR. ?Current regimen Trulicity 3.0 mg weekly and Lantus 18 units q AM. ?Checks sugars 1-2 times daily. Unable to download today. Reports sugars are consistently 100-140. ?Most recent A1C: 6.5% 01/24/2023, unchanged from 6.3% 08/15/2022, prior 6.5% 08/17/2021. ?Family history of T2DM in Brother and Son. ?Has eyes checked yearly, last eye exam 10/10/2022. ?Denies Neuropathy, last foot exam 10/23/2022, sees podiatry q 3 months. ?Has mild Nephropathy, on Benazapril 20 mg PO daily. UAC 34.3 04/20/2022. ?Has HLD, on Rosuvastatin 20 mg PO daily. LDL 66 01/24/2023. ?Denies CAD. ?Has CKD Stage III. ?Diet: Reports very poor appetite, eating at most 2 meals per day. ?Weight: Stable. ?Has not had diabetes education. She has consistently refused. Labs: Laboratory Tests 01/24/23 01/24/23 01/24/23 09:07 09:07 09:07 Sodium 142 Potassium 4.7 Creatinine 1.12 Estimated GFR 48 Hemoglobin A1c % 6.5 LDL Cholesterol Di rect 66 PFSH Medical History Cataract of both eyes CKD (chronic kidney disease) Diabetes HLD (hyperlipidemia) HTN (hypertension) Stroke T2DM (type 2 diabetes mellitus) Vitamin D deficiency Surgical History H/O: hysterectomy History of right shoulder fracture History of temporal artery biopsy Hx of colonoscopy Hx of elbow surgery Family History Father No problems noted. Mother No problems noted. Daughter Arthritis Daughter Arthritis Daughter Arthritis Social History Household Members: Children Housing: Apartment Are you a primary manager intensive care unit to a significant other at home: No Do you presently have visiting nurse or other home services: Yes Alcohol intake: never Patient Tobacco Use Status: Never used Tobacco service: No Current occupational status: disabled Assessment & Plan Assessment & Plan (1) T2DM (type 2 diabetes mellitus): Code(s): E11.9 - Type 2 diabetes mellitus without complications Qualifiers: Diabetes mellitus [facility] insulin use: with [facility] use Diabetes mellitus complication status: with hyperglycemia Qualified Code(s): E11.65 - Type 2 diabetes mellitus with hyperglycemia; Z79.4 - nremt (current) use of insulin Plan: Patient with T2DM. Sugars are at goal. Will continue with her current regimen. I advised her to notify me of any low sugars. She will then F/U in 3 months time. All of her questions were answered. She is in agreement with this plan of care. The importance of adherence to prescribed regimen was discussed with the patient including checking finger sticks 3-4 times per day, using medication as prescribed, monitoring for hypoglycemia and treating any episode of hypoglycemia according to the rule of 15's. The signs and symptoms of hypoglycemia were reviewed in detail, as well as the rule of 15's to treat. Proper foot care was also discussed with the patient, and the importance of yearly dilated eye exam. The patient was asked to have copy of eye exam sent to our office for review. I spent 20 minutes in reviewing the record, seeing the patient and documenting in the medical record, including 5 minutes on the phone with the Patient. (2) HLD (hyperlipidemia): Code(s): E78.5 - Hyperlipidemia, unspecified Qualifiers: Hyperlipidemia type: unspecified Qualified Code(s): E78.5 - Hyperlipidemia, unspecified Plan: LDL at goal. No changes. (3) HTN (hypertension): Code(s): I10 - Essential (primary) hypertension Qualifiers: Hypertension type: unspecified Qualified Code(s): I10 - Essential (primary) hypertension Plan: BP at goal. No changes. (4) CKD (chronic kidney disease): Code(s): N18.9 - Chronic kidney disease, unspecified Qualifiers: Chronic kidney disease stage: stage 3 (moderate) Chronic kidney disease stage 3 subtype: unspecified whether 3a or 3b Qualified Code(s): N18.30 - Chronic kidney disease, stage 3 unspecified Plan: Follows with Nephrology. Telehealth Telehealth Location of provider rendering services: practice address Location of patient: address on file Patient Identification confirmed using: Name, : Yes Telehealth method: voice only Patient verbally consented to treatment: Yes Patient verbally consented to billing insurance company: Yes Patient informed of any privacy concerns related to visit: Yes Coding Level of Care Code Tele Est Pt Level 3 (88918) Diagnoses T2DM (type 2 diabetes mellitus) E11.65; Z79.4 Diabetes mellitus [facility] insulin use: with [facility] use Diabetes mellitus complication status: with hyperglycemia HLD (hyperlipidemia) E78.5 Hyperlipidemia type: unspecified HTN (hypertension) I10 Hypertension type: unspecified CKD (chronic kidney disease) N18.30 Chronic kidney disease stage: stage 3 (moderate) Chronic kidney disease stage 3 subtype: unspecified whether 3a or 3b
== END 2023-05-23 08:23 | disposition home or self-care (01) ==
LOC: HO.ENCR 07:52
PROVIDERS: PCP Internal Medicine; Visit Provider Internal Medicine
DX: E11.65 Type 2 diabetes mellitus with hyperglycemia (principal); Z79.4 Long term (current) use of insulin; E78.5 Hyperlipidemia, unspecified; I10 Essential (primary) hypertension; N18.30 Chronic kidney disease, stage 3 unspecified
CPT/HCPCS: 99213

== ENCOUNTER → 2023-05-23 07:51 | Outpatient (BNVA) | payer OTHER, SELFPAY | PROVIDERS: PCP Internal Medicine; Visit Provider Internal Medicine | DX: E11.65 Type 2 diabetes mellitus with hyperglycemia (principal); E78.5 Hyperlipidemia, unspecified; I10 Essential (primary) hypertension; N18.30 Chronic kidney disease, stage 3 unspecified; Z79.4 Long term (current) use of insulin | CPT/HCPCS: Q3014 ==

== ENCOUNTER 2023-05-24 10:47 | Outpatient (REF) | payer OTHER, SELFPAY ==
[2023-05-24 13:44] LABS: Estimated Average Glucose 137 mg/dL; Hemoglobin A1c % 6.4 %
[2023-05-24 13:49] LABS: Anion Gap 11 (12-20); Blood Urea Nitrogen 37 mg/dL (9-16); Carbon Dioxide 28 mmol/L (22-29); Chloride 106 mmol/L (96-108); Estimated Glomerular Filt Rate 43; Glucose Random 107 mg/dL (60-115); Magnesium 1.6 mg/dL (1.6-2.6); Phosphorus 3.8 mg/dL (2.7-4.5); Potassium 4.4 mmol/L (3.3-5.1); Sodium 141 mmol/L (135-145)
== END 2023-05-24 10:48 | disposition home or self-care (01) ==
LOC: HO.HHCL 10:47
PROVIDERS: Visit Provider Internal Medicine
DX: I10 Essential (primary) hypertension (principal); R42 Dizziness and giddiness; E11.65 Type 2 diabetes mellitus with hyperglycemia; Z79.4 Long term (current) use of insulin
CPT/HCPCS: 36415; 80048; 83036; 83735; 84100

== ENCOUNTER 2023-08-24 09:26 | Outpatient (REF) | payer OTHER, SELFPAY ==
--- NOTE | ~2023-08-24 | MM_ITS ---
EXAMINATION: BONE DENSITOMETRY CLINICAL INDICATION: Osteopenia. COMPARISON: Previous BD dated 07/14/2020 and baseline BD dated 04/26/2007. TECHNIQUE: Using a [employer] DXA System (software version: 13.1) manufactured by [employer], dual-energy x-ray absorptiometry was performed of the lumbar spine and left hip. The images are of good technical quality. Summary results are attached. FINDINGS: LEFT FEMUR, NECK: Current: BMD 0.728 g/cm2, Z-score -0.5, T-score -2.2, osteopenia. Prior: BMD 0.782 g/cm2. Baseline: BMD 0.889 g/cm2. LEFT FEMUR, TOTAL: Current: BMD 0.824 g/cm2, Z-score 0.1, T-score -1.5, osteopenia, 6.4% decrease from previous, 19.6% decrease from baseline (<5% change is not significant). Prior: BMD 0.880 g/cm2. Baseline: BMD 1.025 g/cm2. AP SPINE L1-L4: Current: BMD 0.965 g/cm2, Z-score -0.4, T-score -1.8, osteopenia, 3.1% increase from previous, 5.0% decrease from baseline (<5% change is not significant). Prior: BMD 0.936 g/cm2. Baseline: BMD 1.016 g/cm2. IDENTIFIED RISK FACTORS: Hysterectomy, menopause, bilateral oophorectomy, history of fracture (adult). HISTORY OF FRACTURE: Humerus. Other. MEDICATIONS: Calcium. MM/XR DEXA axial skeleton IMPRESSION: 1. DIAGNOSIS: Osteopenia based on the lowest T-score value of -2.2 in the femoral neck applying World Health Organization criteria. 2. 10-YEAR FRACTURE RISK PREDICTION, FRAX: Major osteoporotic fracture (clinical spine, forearm, hip or shoulder) 12.4%. Hip fracture 3.2%. 3. Treatment Recommendations: NOF guidelines recommend consideration for treatment in postmenopausal women and men age 50 and older presenting with the following: -A hip or vertebral (clinical or morphometric) fracture. -T-score less than or equal to -2.5 at the femoral neck or spine after appropriate evaluation to exclude secondary causes. -Low bone mass at the hip or spine and a 10-year fracture probability by FRAX of greater than or equal to 3% for hip fracture or greater than or equal to 20% for major osteoporotic fracture based on the [place] adapted WHO algorithm. 4. Other Recommendations: All treatment decisions require clinical judgment and consideration of individual patient factors, including patient preferences, comorbidities, previous drug use, risk factors not captured in the FRAX model (e.g. frailty, falls, vitamin D deficiency, increased bone turnover, interval significant decline in bone density) and possible under or overestimation of fracture risk by FRAX. Additional medical evaluation for secondary cause of low bone mineral density may be appropriate. FUTURE SCAN RECOMMENDATION: People with diagnosed cases of osteoporosis or at high risk for fracture should have regular bone mineral density tests. For patients eligible for Medicare, routine testing is allowed once every 2 years. The testing frequency can be increased to one year for patients who have rapidly progressing disease, those who are receiving or discontinuing medical therapy to restore bone mass, or have additional risk factors.
== END 2023-08-24 09:27 | disposition home or self-care (01) ==
LOC: HO.MAMMO 09:26
PROVIDERS: PCP Internal Medicine; Visit Provider Internal Medicine
DX: Z13.820 Encounter for screening for osteoporosis (principal); Z78.0 Asymptomatic menopausal state; Z91.81 History of falling
CPT/HCPCS: 77080

== ENCOUNTER 2023-08-30 08:35 | Outpatient (REF) | payer OTHER, SELFPAY ==
[2023-08-30 12:58] LABS: Cholesterol 144 mg/dL (<200); HDL Cholesterol 42 mg/dL (>40); LDL Cholesterol Calculated 72 mg/dL (<100); Triglycerides 150 mg/dL (<150)
[2023-08-30 13:36] LABS: Reflex LDLD? No
== END 2023-08-30 08:36 | disposition home or self-care (01) ==
LOC: HO.HHCL 08:35
PROVIDERS: Visit Provider Internal Medicine
DX: E11.65 Type 2 diabetes mellitus with hyperglycemia (principal); Z79.4 Long term (current) use of insulin
CPT/HCPCS: 36415; 80061

== ENCOUNTER 2023-08-30 09:03 | Outpatient (REF) | payer OTHER, SELFPAY ==
--- NOTE | ~2023-08-30 | US_ITS ---
EXAMINATION: US EXTRACRANIAL CAROTID DUPLEX, BILATERAL CLINICAL INFORMATION: Dizziness. Carotid atherosclerosis. Follow-up COMPARISON: Ultrasound Carotid 08/15/2022 TECHNIQUE: Real-time ultrasound and Doppler techniques (integrating B-mode 2-D vascular images, Doppler spectral analysis and color-flow Doppler imaging) were utilized to interrogate the extracranial carotid arteries, the vertebral arteries and proximal subclavian arteries bilaterally. The degree of stenosis is determined by criteria similar to NASCET. FINDINGS: Right Side: 1. There is mild atherosclerotic plaque seen in the bifurcation/proximal ICA region. 2. The common carotid artery PSV proximally is 89 cm/s and distally 79 cm/s. 3. The proximal internal carotid artery velocities are 71 cm/s systolic and 18 cm/s diastolic. 4. The proximal external carotid artery PSV is 100 cm/s. 5. The vertebral artery shows antegrade flow. 6. The subclavian artery waveforms are normal. Left Side: 1. There is mild atherosclerotic plaque seen in the bifurcation/proximal ICA region. 2. The common carotid artery PSV proximally is 97 cm/s and distally 82 cm/s. 3. The proximal internal carotid artery velocities are 76 cm/s systolic and 20 cm/s diastolic. 4. The proximal external carotid artery PSV is 88 cm/s. 5. The vertebral artery shows antegrade flow. 6. The subclavian artery waveforms are normal. US/US carotid duplex BI IMPRESSION: 1. RIGHT: Minimal, non-hemodynamically significant stenosis of the proximal right internal carotid artery corresponding to a 0-49% stenosis by velocity criteria. 2. LEFT: Minimal, non-hemodynamically significant stenosis of the proximal left internal carotid artery corresponding to a 0-49% stenosis by velocity criteria. 3. There is no change in the category severity of disease when compared to the previous study dated 08/15/2022.
== END 2023-08-30 09:04 | disposition home or self-care (01) ==
LOC: HO.US 09:03
PROVIDERS: PCP Internal Medicine; Visit Provider Internal Medicine
DX: R42 Dizziness and giddiness (principal); E11.65 Type 2 diabetes mellitus with hyperglycemia; I10 Essential (primary) hypertension
CPT/HCPCS: 93880

== ENCOUNTER 2023-09-19 09:35 | Outpatient (REF) | payer OTHER, SELFPAY ==
[2023-09-19 11:09] LABS: MANUAL DIFF FLAG NO
[2023-09-19 11:36] LABS: Basophils Percent Auto 0.5 % (0-2); Eosinophils Absolute Auto 0.3 X10*3/uL (0.0-0.4); Eosinophils Percent Auto 3.5 % (0-4); Hematocrit 33.6 % (37.0-47.0); Hemoglobin 10.5 g/dl (12.0-16.0); Imm Gran Abs Auto 0.02 X10*3/uL (0.00-0.03); Imm Gran Pct Auto 0.2 % (0.0-0.4); Lymphocytes Absolute Auto 2.8 X10*3/uL (1.2-4.9); Lymphocytes Percent Auto 33.5 % (20-40); Mean Corpuscular HGB Conc 31.3 g/dl (31.0-35.0); Mean Corpuscular Hemoglobin 28.1 pg (27.0-33.0); Mean Corpuscular Volume 89.8 fL (80.0-98.0); Mean Platelet Volume 11.4 fL (9.4-12.3); Monocytes Absolute Auto 0.6 X10*3/uL (0.1-1.2); Monocytes Percent Auto 7.7 % (2-11); Neutrophils Absolute Auto 4.6 x10*3/uL (2.0-8.3); Neutrophils Percent Auto 54.6 % (45-73); Platelet Count 244 X10*3/uL (160-400); Red Blood Count 3.74 X10*6/uL (4.20-5.50); Red Cell Distribution Width 12.9 % (11.0-16.0); White Blood Count 8.4 X10*3/uL (4.8-10.8)
[2023-09-19 11:47] LABS: C Reactive Protein 4.22 mg/dL (< or = 0.50)
[2023-09-19 12:04] LABS: Rheumatoid Factor 369.6 IU/mL (<15.0)
[2023-09-19 12:21] LABS: Erythrocyte Sedimentation Rate 94 MM/HR (0-20)
== END 2023-09-19 09:36 | disposition home or self-care (01) ==
LOC: HO.HHCL 09:35
PROVIDERS: Visit Provider Internal Medicine
DX: M65.9 Synovitis and tenosynovitis, unspecified (principal); Z20.2 Contact with and (suspected) exposure to infections with a predominantly sexual mode of transmission
CPT/HCPCS: 36415; 85025; 85652; 86140; 86431

== ENCOUNTER 2023-10-01 08:22 | Outpatient (REF) | payer OTHER, SELFPAY | END 2023-10-01 08:23 | disposition home or self-care (01) | LOC: HO.MAMMO 08:22 | PROVIDERS: PCP Internal Medicine; Visit Provider Internal Medicine | DX: Z12.31 Encounter for screening mammogram for malignant neoplasm of breast (principal) | CPT/HCPCS: 77063; 77067 ==

== ENCOUNTER → 2023-10-01 08:30 | Outpatient (BNV) | payer OTHER, SELFPAY | PROVIDERS: PCP Internal Medicine; Visit Provider Radiology Diagnostic Radiology | DX: Z12.31 Encounter for screening mammogram for malignant neoplasm of breast (principal) | CPT/HCPCS: 77063; 77067 ==

== ENCOUNTER 2023-10-11 08:46 | Outpatient (REF) | payer OTHER, SELFPAY ==
--- NOTE | ~2023-10-11 | MR_ITS ---
EXAMINATION: MR BRAIN WITHOUT CONTRAST CLINICAL INFORMATION: Dizziness. Near syncope. Hypertension. COMPARISON: Brain MRI from 11/16/2015. TECHNIQUE: MRI of the brain was obtained using routine sequences without contrast. FINDINGS: No focal restricted diffusion is demonstrated to suggest acute or subacute cerebral ischemia. No evidence of acute or chronic hemorrhagic products on heme-sensitive imaging. Scattered and partially confluent periventricular, deep white matter, and brainstem T2 FLAIR hyperintensities consistent with moderate underlying microangiopathy. Proportional prominence of the ventricles and sulcal spaces without evidence of obstructive hydrocephalus. Stable appearance of a 1.3 cm extra-axial lesion along the right petroclival ligament suggestive of a small meningioma. No abnormal mass effect. No midline shift. Normal appearance of the pituitary gland. The cerebellar tonsils are low lying, positioned 1.4 cm below the foramen magnum (unchanged). The CSF space of the foramen magnum is maintained. Normal arterial and venous vascular flow voids are present. Normal, homogeneous marrow signal. Mild mucosal thickening of the paranasal sinuses. No signal abnormalities within the mastoids. No demonstrated loss of normal T2 signal within the operating structures bilaterally. Bilateral lens extractions. MR/MR head/brain wo con IMPRESSION: 1. No acute intracranial abnormalities. 2. Moderate underlying microangiopathy and generalized cerebral volume loss. 3. Stable appearance of a 1.3 cm extra-axial lesion along the right petroclival ligament suggestive of a small meningioma. 4. Chronic Chiari I malformation.
== END 2023-10-11 08:47 | disposition home or self-care (01) ==
LOC: HO.MRI 08:46
PROVIDERS: PCP Internal Medicine; Visit Provider Internal Medicine
DX: R42 Dizziness and giddiness (principal)
CPT/HCPCS: 70551

== ENCOUNTER 2023-10-19 09:29 | Outpatient (AMB) | payer OTHER, SELFPAY ==
[2023-10-19 09:44] VITALS: BP 138/72; PULSE 99; RESP 15; TEMP 36.8; O2SAT 95; BMI 37.8
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
== END 2023-10-19 10:41 | disposition home or self-care (01) ==
PROVIDERS: PCP Internal Medicine; Visit Provider Nurse Practitioner Family
DX: M25.531 Pain in right wrist (principal); M25.431 Effusion, right wrist; R76.8 Other specified abnormal immunological findings in serum; M25.561 Pain in right knee; M25.562 Pain in left knee; G89.29 Other chronic pain; E11.9 Type 2 diabetes mellitus without complications; Z79.4 Long term (current) use of insulin
CPT/HCPCS: 99204

== ENCOUNTER 2023-10-19 09:29 | Outpatient (REF) | payer OTHER, SELFPAY ==
--- NOTE | ~2023-10-19 | XR_ITS ---
EXAMINATION: XR ELBOW, RIGHT CLINICAL INFORMATION: Pain COMPARISON: Elbow radiographs 10/04/2016 TECHNIQUE: AP, lateral, and oblique views of the right elbow. FINDINGS: Surgical anchors in the lateral condyle. Moderate osteoarthritis of the elbow with loss of joint space, osteophytosis and triceps tendon enthesopathy similar to prior. Coarse calcification noted anterior to the elbow may reflect sequelae of heterotopic ossification. No acute fracture or dislocation. No joint effusion. XR/XR elbow RT min 3V IMPRESSION: Moderate osteoarthritis of the elbow with loss of joint space, osteophytosis and triceps tendon enthesopathy similar to prior. Coarse calcification noted anterior to the elbow may reflect sequelae of heterotopic ossification.
--- NOTE | ~2023-10-19 | XR_ITS ---
EXAMINATION: XR KNEE, RIGHT XR KNEE, LEFT CLINICAL INFORMATION: Pain in right knee. COMPARISON: None available. TECHNIQUE: The left knee. 2 views of the right knee. FINDINGS: Right knee: No significant joint effusion. Chondrocalcinosis in medial and lateral compartments. Tiny tricompartmental osteophytes. Moderate to marked medial joint space narrowing and subchondral sclerosis. Left knee: No significant joint effusion. Chondrocalcinosis in medial and lateral compartments. Tiny tricompartmental osteophytes. Moderate medial joint space narrowing and subchondral sclerosis. XR/XR knee RT 2V IMPRESSION: Moderate to marked degenerative changes bilateral knees. Changes in the bilateral knees, right greater than left.
--- NOTE | ~2023-10-19 | XR_ITS ---
EXAMINATION: XR KNEE, RIGHT XR KNEE, LEFT CLINICAL INFORMATION: Pain in right knee. COMPARISON: None available. TECHNIQUE: The left knee. 2 views of the right knee. FINDINGS: Right knee: No significant joint effusion. Chondrocalcinosis in medial and lateral compartments. Tiny tricompartmental osteophytes. Moderate to marked medial joint space narrowing and subchondral sclerosis. Left knee: No significant joint effusion. Chondrocalcinosis in medial and lateral compartments. Tiny tricompartmental osteophytes. Moderate medial joint space narrowing and subchondral sclerosis. XR/XR knee LT 2V IMPRESSION: Moderate to marked degenerative changes bilateral knees. Changes in the bilateral knees, right greater than left.
--- NOTE | ~2023-10-19 | XR_ITS ---
EXAMINATION: XR hand LT min 3V, XR hand RT min 3V CLINICAL INFORMATION: Pain COMPARISON: None TECHNIQUE: 3 views of the bilateral hands FINDINGS: RIGHT HAND: No fracture or dislocation. Mild osteoarthritis involving the DIP joints with small osteophytes similar to prior. No cortical erosion. Soft tissues are unremarkable. LEFT HAND: No fracture or dislocation. Mild osteoarthritis involving the DIP joints with small osteophytes similar to prior. No cortical erosion. Soft tissues are unremarkable. XR/XR hand RT min 3V IMPRESSION: Mild osteoarthritis involving the bilateral DIP joints with small osteophytes similar to prior.
--- NOTE | ~2023-10-19 | XR_ITS ---
EXAMINATION: XR hand LT min 3V, XR hand RT min 3V CLINICAL INFORMATION: Pain COMPARISON: None TECHNIQUE: 3 views of the bilateral hands FINDINGS: RIGHT HAND: No fracture or dislocation. Mild osteoarthritis involving the DIP joints with small osteophytes similar to prior. No cortical erosion. Soft tissues are unremarkable. LEFT HAND: No fracture or dislocation. Mild osteoarthritis involving the DIP joints with small osteophytes similar to prior. No cortical erosion. Soft tissues are unremarkable. XR/XR hand LT min 3V IMPRESSION: Mild osteoarthritis involving the bilateral DIP joints with small osteophytes similar to prior.
== END 2023-10-19 09:30 | disposition home or self-care (01) ==
LOC: HO.XRAY 09:29
PROVIDERS: PCP Internal Medicine; Visit Provider Nurse Practitioner Family
DX: M25.561 Pain in right knee (principal); M25.562 Pain in left knee; M25.531 Pain in right wrist; M25.431 Effusion, right wrist; R76.8 Other specified abnormal immunological findings in serum; M25.521 Pain in right elbow
CPT/HCPCS: 73080; 73130; 73560; 99202

== ENCOUNTER 2023-10-19 10:50 | Outpatient (REF) | payer OTHER, SELFPAY ==
[2023-10-19 13:27] LABS: MANUAL DIFF FLAG NO
[2023-10-19 13:36] LABS: Basophils Absolute Auto 0.1 X10*3/uL (0.0-0.2); Basophils Percent Auto 0.6 % (0-2); Eosinophils Absolute Auto 0.3 X10*3/uL (0.0-0.4); Eosinophils Percent Auto 3.5 % (0-4); Hematocrit 34.3 % (37.0-47.0); Hemoglobin 10.8 g/dl (12.0-16.0); Imm Gran Abs Auto 0.03 X10*3/uL (0.00-0.03); Imm Gran Pct Auto 0.3 % (0.0-0.4); Lymphocytes Absolute Auto 3.6 X10*3/uL (1.2-4.9); Lymphocytes Percent Auto 37.6 % (20-40); Mean Corpuscular HGB Conc 31.5 g/dl (31.0-35.0); Mean Corpuscular Hemoglobin 27.8 pg (27.0-33.0); Mean Corpuscular Volume 88.2 fL (80.0-98.0); Mean Platelet Volume 10.9 fL (9.4-12.3); Monocytes Absolute Auto 0.7 X10*3/uL (0.1-1.2); Monocytes Percent Auto 7.4 % (2-11); Neutrophils Absolute Auto 4.8 x10*3/uL (2.0-8.3); Neutrophils Percent Auto 50.6 % (45-73); Platelet Count 259 X10*3/uL (160-400); Red Blood Count 3.89 X10*6/uL (4.20-5.50); Red Cell Distribution Width 13.2 % (11.0-16.0); White Blood Count 9.5 X10*3/uL (4.8-10.8)
[2023-10-19 14:08] LABS: Alanine Aminotransferase 6 U/L (0-31); Albumin Level 4.3 g/dL (3.5-5.0); Alkaline Phosphatase 73 U/L (39-117); Anion Gap 8 (12-20); Aspartate Amino Transferase 15 U/L (5-31); Bilirubin Total 0.4 mg/dL (0.0-1.0); Blood Urea Nitrogen 37 mg/dL (9-16); C Reactive Protein 2.43 mg/dL (< or = 0.50); Calcium 9.9 mg/dL (8.4-10.2); Carbon Dioxide 29 mmol/L (22-29); Chloride 110 mmol/L (96-108); Estimated Glomerular Filt Rate 49; Glucose Random 90 mg/dL (60-115); Potassium 4.4 mmol/L (3.3-5.1); Sodium 143 mmol/L (135-145); Total Protein 8.5 g/dL (6.5-8.0); Uric Acid 6.8 mg/dL (2.4-5.7)
[2023-10-19 14:17] LABS: Erythrocyte Sedimentation Rate 91 MM/HR (0-20)
[2023-10-20 03:45] LABS: Estimated Average Glucose 140 mg/dL; Hemoglobin A1c % 6.5 % (<6.0)
[2023-10-20 04:46] LABS: HBc Num1 0.13 S/CO (0.00-0.79); HBsAGNum1 0.25 S/CO (0.00-0.99); Hepatitis A Antibody IgM 0.29 Index (0-0.79); Hepatitis B Core Antibody Nonreactive (Nonreactive); Hepatitis B Surface Antigen Negative (Negative); ~Hepatitis A Antibody IgM Nonreactive (Nonreactive)
[2023-10-20 05:00] LABS: HBS Num1 0.67 mIU/mL (0-7.99); ~HepC Num1 0.18 S/CO (0.00-0.79); ~Hepatitis B Surface Antibody NONREACTIVE (Nonreactive); ~Hepatitis C Antibody Nonreactive (Nonreactive)
[2023-10-22 16:49] LABS: TS Negative Control Passed; TS Panel A 0; TS Panel B 0; TS Positive Control Passed; TSpotTB Negative (Negative)
[2023-10-22 17:04] LABS: IgA 553 mg/dL (70-320); IgG 1431 mg/dL (600-1540); IgM 233 mg/dL (50-300)
[2023-10-22 19:18] LABS: Antibody to SS-A Antigen <1.0 NEG AI (<1.0 NEG); Antibody to SS-B Antigen <1.0 NEG AI (<1.0 NEG)
[2023-10-24 01:58] LABS: VITAMIN D (1,25 OH) D3 11 pg/mL; Vit D (1,25-Dihydroxy) Total 11 pg/mL (18-72); Vitamin D (1,25 OH) D2 <8 pg/mL
[2023-10-25 15:49] LABS: Aldolase 3.9 U/L (<=8.1)
== END 2023-10-19 10:51 | disposition home or self-care (01) ==
LOC: HO.10HDL 10:50
PROVIDERS: Internal Medicine; Visit Provider Nurse Practitioner Family
DX: Z11.1 Encounter for screening for respiratory tuberculosis (principal); M25.531 Pain in right wrist; M25.431 Effusion, right wrist; E11.65 Type 2 diabetes mellitus with hyperglycemia; Z79.4 Long term (current) use of insulin; M25.561 Pain in right knee; E55.9 Vitamin D deficiency, unspecified
CPT/HCPCS: 36415; 80053; 82085; 82550; 82652; 82784; 83036; 84550; 85025; 85652; 86140; 86235; 86481; 86704; 86706; 86709; 86803; 87340

== ENCOUNTER 2023-11-22 11:31 | Outpatient (AMB) | payer OTHER, SELFPAY ==
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
[2023-11-22 11:40] VITALS: BP 130/72; PULSE 77; TEMP 36.1; O2SAT 97; BMI 37.8
== END 2023-11-22 12:06 | disposition home or self-care (01) ==
PROVIDERS: PCP Internal Medicine; Visit Provider Nurse Practitioner Family
DX: M25.531 Pain in right wrist (principal); M25.431 Effusion, right wrist; R76.8 Other specified abnormal immunological findings in serum; M25.561 Pain in right knee; M25.562 Pain in left knee; G89.29 Other chronic pain; E11.9 Type 2 diabetes mellitus without complications; Z79.4 Long term (current) use of insulin
CPT/HCPCS: 99214

== ENCOUNTER → 2023-11-22 11:31 | Outpatient (BNVA) | payer OTHER, SELFPAY | PROVIDERS: PCP Internal Medicine; Visit Provider Nurse Practitioner Family | DX: M25.431 Effusion, right wrist (principal); M25.561 Pain in right knee; M25.562 Pain in left knee; G89.29 Other chronic pain; R76.8 Other specified abnormal immunological findings in serum; E11.9 Type 2 diabetes mellitus without complications; Z79.4 Long term (current) use of insulin | CPT/HCPCS: 99212 ==

== ENCOUNTER 2023-11-22 12:11 | Outpatient (REF) | payer OTHER, SELFPAY ==
[2023-11-22 13:33] LABS: Creatinine Urine 167.45 mg/dL; Microalbum/Creatinine Ratio Ur 45.9 ug/mg cr (<30)
[2023-11-22 13:37] LABS: Alanine Aminotransferase 8 U/L (0-31); Albumin Level 4.3 g/dL (3.5-5.0); Alkaline Phosphatase 70 U/L (39-117); Anion Gap 12 (12-20); Aspartate Amino Transferase 17 U/L (5-31); Bilirubin Total 0.4 mg/dL (0.0-1.0); Blood Urea Nitrogen 31 mg/dL (9-16); C Reactive Protein 1.81 mg/dL (< or = 0.50); Calcium 10.2 mg/dL (8.4-10.2); Carbon Dioxide 29 mmol/L (22-29); Chloride 104 mmol/L (96-108); Estimated Glomerular Filt Rate 47; Glucose Random 111 mg/dL (60-115); Potassium 4.1 mmol/L (3.3-5.1); Sodium 141 mmol/L (135-145); Total Protein 8.4 g/dL (6.5-8.0); Uric Acid 5.3 mg/dL (2.4-5.7)
[2023-11-22 13:52] LABS: Erythrocyte Sedimentation Rate 86 MM/HR (0-20)
== END 2023-11-22 12:12 | disposition home or self-care (01) ==
LOC: HO.10HDL 12:11
PROVIDERS: Internal Medicine; Visit Provider Nurse Practitioner Family
DX: E79.0 Hyperuricemia without signs of inflammatory arthritis and tophaceous disease (principal); M25.531 Pain in right wrist; M25.431 Effusion, right wrist; E11.65 Type 2 diabetes mellitus with hyperglycemia; Z79.4 Long term (current) use of insulin
CPT/HCPCS: 36415; 80053; 82043; 82570; 84550; 85652; 86140

== ENCOUNTER 2024-02-06 06:26 | Day surgery (SDC) | payer OTHER, SELFPAY ==
[2024-02-04 11:40] VITALS: BMI 38.2
[2024-02-06 06:37] VITALS: BMI 38.2
--- NOTE | 2024-02-06 06:50 | HO.ANESPROP2 ---
[facility] Active Problems Active Problems: All Active Problems (Updated 11/22/23 @ 11:55 by Tabatha Soriano [facility]) Elevated uric acid in blood (Acute) Right elbow pain (Acute) Knee pain, bilateral (Acute) Pain and swelling of right wrist (Acute) Rheumatoid factor positive (Acute) Herpes zoster (Acute) Varicose veins of right lower extremity with inflammation (Acute) Acute on chronic blood loss anemia (Acute) Varicose veins of left lower extremity with inflammation (Acute) CKD (chronic kidney disease) (Acute) Vitamin D deficiency (Acute) HLD (hyperlipidemia) (Acute) HTN (hypertension) (Acute) T2DM (type 2 diabetes mellitus) (Acute) Diabetes (Acute) Past Medical History Medical History Elevated uric acid in blood Right elbow pain Knee pain, bilateral Pain and swelling of right wrist Tenosynovitis of left wrist Tubular adenoma of colon Benign paroxysmal positional vertigo Vascular insufficiency Urinary incontinence Rheumatoid factor positive Pure hypercholesterolemia 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 Mother No problems noted. Daughter Arthritis Daughter Arthritis Daughter Arthritis Family history of problems with anesthesia: No Surgical History Surgical History H/O: hysterectomy Hx of colonoscopy History of temporal artery biopsy Hx of elbow surgery History of right shoulder fracture History of Problems with Anesthesia: No Social History Social History Household Members: Children Housing: Apartment Are you a primary pharmacy customer care specialist to a significant other at home: No Do you presently have visiting nurse or other home services: Yes Alcohol intake: never Patient Tobacco Use Status: Never used Tobacco Use of substances other than those prescribed or required for medical reasons: No Are you DNR?: No Advance Directives: No Advance Directives Information Provided: Yes service: No Current occupational status: disabled Meds Allergies Allergy/AdvReac Type Severity Reaction Status Date / Time penicillin G [PENICILLIN G] Allergy Mild PRURITIS Verified 11/22/23 11:40 amoxicillin Allergy Unknown rash, Verified 11/22/23 11:40 itching aspirin AdvReac Hives Verified 02/06/24 06:43 Active Medications: Current Medications Sodium Biphosphate/Sodium Phosphate (Sodium Phosphate,[place]-Dibasic 133 Ml Enema) 133 ml MD ONCE PRN PRN Reason: Poor Colonoscopy Prep Results Home Medications Medication Instructions Recorded Confirmed Last Taken Type albuterol sulfate 90 mcg/actuation 2 puff inhalation Q6H PRN 10/14/20 02/04/24 03/04/23 History aerosol inhaler (ProAir HFA) Shortness Of Breath gabapentin 100 mg capsule 100 mg PO BID 10/14/20 02/06/24 02/05/24 History meclizine 12.5 mg tablet 25 mg PO TID 10/14/20 02/04/24 03/06/23 History acetaminophen 500 mg tablet 500 mg PO DAILY PRN Pain 12/13/21 02/04/24 03/06/23 History insulin glargine 100 unit/mL (3 18 unit subcut DAILY 12/13/21 02/06/24 02/05/24 History mL) subcutaneous pen (Lantus Solostar U-100 Insulin) ketorolac 0.5 % eye drops 1 drp ophthalmic (eye) DAILY 12/13/21 02/04/24 03/06/23 History timolol maleate 0.5 % eye drops 1 drp ophthalmic (eye) BID 12/13/21 02/04/24 03/06/23 History comp.stocking,thigh,long,x-lrg 12/15/21 10/19/23 03/06/23 History sertraline 50 mg tablet 50 mg PO QAM 02/17/22 02/06/24 02/05/24 History calcium carbonate 600 mg-vitamin 1 tab PO BID 04/20/22 02/06/24 02/05/24 History D3 10 mcg (400 unit) chewable tablet (Calcium 600 with Vitamin D3) amlodipine 10 mg tablet 5 mg PO DAILY 06/14/23 02/06/24 02/05/24 History brimonidine 0.2 % eye drops 1 drp ophthalmic-Right BID 06/14/23 02/04/24 Unknown History docusate sodium 100 mg capsule 100 mg PO BID PRN Constipation 06/14/23 02/06/24 02/05/24 History omeprazole 20 mg capsule,delayed 20 mg PO QAM 06/14/23 02/06/24 02/05/24 History release benazepril 20 mg tablet 20 mg PO DAILY 10/19/23 02/06/24 02/05/24 History Exam Height,Weight and Vital Signs: Height 4 ft 11 in Weight 85.729 kg Airway Mallampati Class: III TM Dist: <=3cm Neck ROM: Full Loose/Missing/Broken Teeth: No Heart: rrr Lungs: cta Assessment and Plan Final Anesthetic Review Family History of Problems with Anesthesia: No History of Problems with Anesthesia: No NPO: Yes ASA Class: III Final Preanesthetic Review: No Changes in Pt Med Stat, Meds/Allgs Chart Reviewed, Consent Obtained/Reviewed and Anes Risks/Benef Reviewed Patient Risk: Intermediate Procedure Risk: Intermediate Anesthetic Plan Anesthetic Plan: MAC: Disposition: Standard PACU
[2024-02-06 06:55] VITALS: BP 150/75; PULSE 62; RESP 16; TEMP 36.2; O2SAT 96
[2024-02-06 07:08] LABS: Glucose, Whole Blood 97 mg/dL (60-115)
[2024-02-06 08:26] VITALS: BP 130/61; PULSE 58; RESP 18; TEMP 36.2; O2SAT 100
--- NOTE | 2024-02-06 08:30 | P.BOP_ITS ---
Brief Operative Note Date of Service: 02/06/24 Pre-op diagnosis: Screening Post-op diagnosis: other (Colon polyp) Procedure: Colonoscopy to the cecum with cold snare polypectomy Surgeon: Rod Arthur MD Anesthesia: MAC Was an Sales Representative Aircraft used for this Procedure?: No Estimated blood loss (mL): 2.0 Pathology: other (A. Polyp at 50cm) Condition: stable Disposition: PACU
[2024-02-06 08:41] VITALS: BP 148/75; PULSE 53; RESP 16; TEMP 36.2; O2SAT 96
--- NOTE | 2024-02-06 08:44 | OP_ITS ---
DATE OF SERVICE: 02/06/2024 SURGEON: Rod Arthur MD INDICATIONS: The patient presents for evaluation of colorectal cancer screening. Full consent obtained from her for this, including risks of bleeding and perforation. PREOPERATIVE DIAGNOSIS: Colorectal cancer screening. POSTOPERATIVE DIAGNOSIS: Colorectal cancer screening, small colon polyp, diverticulosis, and internal hemorrhoids. PROCEDURE PERFORMED: Colonoscopy to the cecum with cold snare polypectomy. ESTIMATED BLOOD LOSS: COMPLICATIONS: ANESTHESIA: Monitored anesthesia care. ASSISTANTS: SPECIMENS: DESCRIPTION OF PROCEDURE: The patient was placed in the left lateral decubitus position. The digital rectal exam revealed no abnormalities. The Olympus video pediatric colonoscope was entered into the rectum and advanced easily to the cecum. Once in the cecum, I did identify normal-appearing cecal pouch with appendiceal orifice and a normal-appearing ileocecal valve. The entire cecum was well visualized and appeared normal. The appendiceal orifice appeared normal. The scope was slowly withdrawn assessing all mucosal surfaces carefully. Preparation was excellent. At 50 cm was an approximately 5 or 6 mm polyp, which was removed by cold snare polypectomy and recovered by suction. The polypectomy site appeared clean, without any sign of residual polyp nor significant bleeding. I did not visualize any other polyps, colitis, or angiodysplasia. There was a mild amount of sigmoid diverticulosis. In the rectum, scope was retroflexed, visualizing internal hemorrhoids, but no other pathology. The rectal mucosa appeared normal. Scope was straightened and withdrawn from the patient. She tolerated the procedure well and was returned to the recovery area in stable condition. IMPRESSION: 1. Colon polyp. 2. Diverticulosis. 3. Internal hemorrhoids. PLAN: Given her age and today's findings, I do not think she would need any further screening colonoscopies. She was advised not to use any aspirin and NSAIDs for 1 week. She will otherwise see me on a p.r.n. basis. MD RUTH Zuñiga/BRENNENL / [phone]
== END 2024-02-06 09:23 | disposition home or self-care (01) ==
PROVIDERS: PCP Internal Medicine; Visit Provider Internal Medicine
PROC: 0DJD8ZZ Inspection of Lower Intestinal Tract, Via Natural or Artificial Opening Endoscopic (ICD-10-PCS; CPT 45378; principal; 2024-02-06 07:30)
DX: Z12.11 Encounter for screening for malignant neoplasm of colon (principal); D12.5 Benign neoplasm of sigmoid colon; K57.30 Diverticulosis of large intestine without perforation or abscess without bleeding; K64.8 Other hemorrhoids; D64.9 Anemia, unspecified; J45.909 Unspecified asthma, uncomplicated; E78.5 Hyperlipidemia, unspecified; E11.22 Type 2 diabetes mellitus with diabetic chronic kidney disease; I12.9 Hypertensive chronic kidney disease with stage 1 through stage 4 chronic kidney disease, or unspecified chronic kidney disease; N18.9 Chronic kidney disease, unspecified; E55.9 Vitamin D deficiency, unspecified; Z86.73 Personal history of transient ischemic attack (TIA), and cerebral infarction without residual deficits; Z79.4 Long term (current) use of insulin; Z79.85 Long-term (current) use of injectable non-insulin antidiabetic drugs; Z79.82 Long term (current) use of aspirin; Z79.899 Other long term (current) drug therapy; Z98.890 Other specified postprocedural states
CPT/HCPCS: 45385; 82947; 88305; J2704

== ENCOUNTER 2024-03-18 09:59 | Outpatient (AMB) | payer OTHER, SELFPAY ==
[2024-03-18 10:01] VITALS: BP 140/72; PULSE 60; BMI 38.7
--- NOTE | 2024-03-18 10:01 | MHC.OFFVIS ---
Vital Signs 03/18/24 10:01 Height 4 ft 11 in Weight 191 lb 9.307 oz BMI 38.7 BP 140/72 H Blood Pressure Location Lt brachial Position Sitting Pulse 60 Pulse Source Pulse Oximeter Intake Visit Reasons: F/U [id number] Intake Note: Patient present today to follow up on Type 2 Diabetes Mellitus. 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 The patient last saw Dr. Soto on 05/23/2023 ?Initially diagnosed with T2DM in 1991 during routine screening exam. ?Was initially started on treatment with Metformin. This was stopped due to diminished GFR. ?Current regimen Trulicity 3.0 mg weekly and Lantus 18 units q AM. ?Checks sugars 1-2 times daily. Average download shows glucose is 223 with standard deviation 66 according to glucometer download. Range is 113-321. 32% range with 68% hyperglycemia and no hypoglycemia ?Most recent A1C:. ?Family history of T2DM in Brother and Son. ?Has eyes checked yearly, last eye exam 03/03/2024 ?Denies Neuropathy, sees podiatry q 3 months. ?Has mild Nephropathy, on Benazapril 20 mg PO daily. UAC 34.3 04/20/2022. ?Has HLD, on Rosuvastatin 20 mg PO daily. LDL 66 01/24/2023. ?Denies CAD. ?Has CKD Stage III. ?Diet: Reports very poor appetite, eating at most 2 meals per day. ?Weight: Stable. ?Has not had diabetes education. She has consistently refused. 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 Pneumonia due to COVID-19 virus Postmenopausal bleeding Osteopenia Obesity Microalbuminuria Medial epicondylitis Lateral epicondylitis of right elbow Injury of face Edema, lower extremity DJD of shoulder Chronic right shoulder pain Cellulitis, toe Arthritis of knee Abnormal gait Asthma Anemia Stroke Cataract of both eyes CKD (chronic kidney disease) Vitamin D deficiency HLD (hyperlipidemia) HTN (hypertension) T2DM (type 2 diabetes mellitus) Diabetes Surgical History H/O: hysterectomy Hx of colonoscopy History of temporal artery biopsy Hx of elbow surgery History of right shoulder fracture Family History Father No problems noted. Mother No problems noted. Daughter Arthritis Daughter Arthritis Daughter Arthritis Social History Household Members: Children Housing: Apartment Are you a primary childcare attendant to a significant other at home: No Do you presently have visiting nurse or other home services: Yes Alcohol intake: never Patient Tobacco Use Status: Never used Tobacco service: No Current occupational status: disabled Physical Exam Vital Signs: Last Vital Signs Pulse 60 03/18/24 10:01 BP 140/72 H 03/18/24 10:01 BMI result Body Mass Index 38.7 Absence of Cushingoid features. Absence of acromegalic features. Neck exam reveals nl size thyroid about 15 gms. No thyroid nodules palpable. No carotid bruits present. Lungs CTA. Heart S1 S2, Reg R/R. No M/R/ G. Skin exam reveals absence of vitiligo or acanthosis nigricans. Abdominal exam reveals Soft NT/ND with NA BS. No organomegaly present. Neck Other: . Extrem Other: Visual exam of foot performed. No ulcerations or open lesions. 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 Plan is to continue the current management. 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
[2024-03-18 10:14] LABS: Glucose, Whole Blood 127 mg/dL (60-115)
== END 2024-03-18 10:25 | disposition home or self-care (01) ==
PROVIDERS: PCP Internal Medicine; Visit Provider Internal Medicine Endocrinology, Diabetes & Metabolism
DX: Z13.9 Encounter for screening, unspecified (principal); E11.65 Type 2 diabetes mellitus with hyperglycemia; Z79.4 Long term (current) use of insulin
CPT/HCPCS: 99214

== ENCOUNTER → 2024-03-18 09:59 | Outpatient (BNVA) | payer OTHER, SELFPAY | PROVIDERS: PCP Internal Medicine; Visit Provider Internal Medicine Endocrinology, Diabetes & Metabolism | DX: E11.65 Type 2 diabetes mellitus with hyperglycemia (principal); E11.22 Type 2 diabetes mellitus with diabetic chronic kidney disease; N18.9 Chronic kidney disease, unspecified; Z79.4 Long term (current) use of insulin | CPT/HCPCS: 82947; 83036; 99212 ==

== ENCOUNTER 2024-05-16 11:13 | Outpatient (REF) | payer OTHER, SELFPAY ==
[2024-05-16 13:31] LABS: Estimated Average Glucose 148 mg/dL; Hemoglobin A1c % 6.8 % (<6.0)
[2024-05-16 13:47] LABS: Alanine Aminotransferase 8 U/L (0-31); Albumin Level 4.6 g/dL (3.5-5.0); Alkaline Phosphatase 68 U/L (39-117); Anion Gap 14 (12-20); Aspartate Amino Transferase 18 U/L (5-31); Bilirubin Total 0.4 mg/dL (0.0-1.0); Blood Urea Nitrogen 39 mg/dL (9-16); Calcium 10.4 mg/dL (8.4-10.2); Carbon Dioxide 26 mmol/L (22-29); Chloride 108 mmol/L (96-108); Estimated Glomerular Filt Rate 44; Glucose Random 113 mg/dL (60-115); Potassium 4.5 mmol/L (3.3-5.1); Sodium 143 mmol/L (135-145); Total Protein 8.9 g/dL (6.5-8.0)
[2024-05-16 13:53] LABS: ~HepC Num1 0.09 S/CO (0.00-0.79); ~Hepatitis C Antibody Nonreactive (Nonreactive)
== END 2024-05-16 11:14 | disposition home or self-care (01) ==
LOC: HO.HHCL 11:13
PROVIDERS: Visit Provider General Practice
DX: E11.65 Type 2 diabetes mellitus with hyperglycemia (principal); Z79.4 Long term (current) use of insulin
CPT/HCPCS: 36415; 80053; 83036; 86803

== ENCOUNTER 2024-08-04 09:30 | Outpatient (REF) | payer OTHER, SELFPAY ==
[2024-08-04 11:26] LABS: MANUAL DIFF FLAG NO
[2024-08-04 11:30] LABS: Basophils Percent Auto 0.5 % (0-2); Eosinophils Absolute Auto 0.3 X10*3/uL (0.0-0.4); Eosinophils Percent Auto 3.2 % (0-4); Hematocrit 34.1 % (37.0-47.0); Hemoglobin 10.8 g/dl (12.0-16.0); Imm Gran Abs Auto 0.02 X10*3/uL (0.00-0.03); Imm Gran Pct Auto 0.3 % (0.0-0.4); Lymphocytes Absolute Auto 2.7 X10*3/uL (1.2-4.9); Lymphocytes Percent Auto 34.1 % (20-40); Mean Corpuscular HGB Conc 31.7 g/dl (31.0-35.0); Mean Corpuscular Hemoglobin 27.9 pg (27.0-33.0); Mean Corpuscular Volume 88.1 fL (80.0-98.0); Mean Platelet Volume 11.3 fL (9.4-12.3); Monocytes Absolute Auto 0.6 X10*3/uL (0.1-1.2); Monocytes Percent Auto 7.9 % (2-11); Neutrophils Absolute Auto 4.3 x10*3/uL (2.0-8.3); Platelet Count 243 X10*3/uL (160-400); Red Blood Count 3.87 X10*6/uL (4.20-5.50); White Blood Count 7.9 X10*3/uL (4.8-10.8)
[2024-08-04 11:57] LABS: Anion Gap 14 (12-20); Blood Urea Nitrogen 29 mg/dL (9-16); Calcium 10.3 mg/dL (8.4-10.2); Carbon Dioxide 25 mmol/L (22-29); Chloride 105 mmol/L (96-108); Estimated Glomerular Filt Rate 50; Iron 58 mcg/dL (30-160); Percent Iron Saturation 29 % (15-50); Phosphorus 3.6 mg/dL (2.7-4.5); Potassium 4.4 mmol/L (3.3-5.1); Sodium 140 mmol/L (135-145); Total Iron Binding Capacity 198 mcg/dL (228-428); Unsaturated Iron Binding 140 ug/dL
[2024-08-04 12:03] LABS: Ferritin 1352 ng/mL (10-250); Vitamin D 25-OH Total 13.8 ng/mL (>30)
[2024-08-04 12:08] LABS: Parathyroid Hormone Intact 81.5 pg/mL (8.7-77.1)
[2024-08-04 14:45] LABS: Cholesterol 145 mg/dL (<200); HDL Cholesterol 43 mg/dL (>40); LDL Cholesterol Calculated 68 mg/dL (<100); Triglycerides 174 mg/dL (<150)
[2024-08-04 14:50] LABS: Reflex LDLD? No
[2024-08-04 15:00] LABS: Ferritin 1293 ng/mL (10-250); Vitamin D 25-OH Total 20.9 ng/mL (>30)
== END 2024-08-04 09:31 | disposition home or self-care (01) ==
LOC: HO.HHCL 09:30
PROVIDERS: Internal Medicine Nephrology; Visit Provider Internal Medicine
DX: E11.21 Type 2 diabetes mellitus with diabetic nephropathy (principal); N18.31 Chronic kidney disease, stage 3a; E11.65 Type 2 diabetes mellitus with hyperglycemia; Z79.4 Long term (current) use of insulin
CPT/HCPCS: 36415; 80051; 80061; 82306; 82310; 82565; 82728; 83540; 83970; 84100; 84520; 85025

== ENCOUNTER 2024-08-07 10:00 | Outpatient (RCR) | payer OTHER, SELFPAY ==
[2024-07-30 09:58] VITALS: BP 130/78
== END 2024-10-17 11:20 | disposition home or self-care (01) ==
LOC: HO.PT 10:00
PROVIDERS: PCP Internal Medicine; Visit Provider General Practice
DX: H81.10 Benign paroxysmal vertigo, unspecified ear (principal)
CPT/HCPCS: 97112; 97162

== ENCOUNTER 2024-08-22 13:24 | Outpatient (REF) | payer OTHER, SELFPAY ==
[2024-08-22 16:27] LABS: Appearance Urine Cloudy; Color Urine Yellow; Glucose Urine UA Negative (Negative); Leukocyte Esterase Urine Small (1+) (Negative); Nitrite Urine Negative (Negative); PH 5.5 (5.0-9.0); UMIC TRIGGER UA YES; Urine Blood Trace (Negative); Urine Ketones Negative (Negative); Urine Protein Trace mg/dL (Neg-Trace)
[2024-08-22 16:33] LABS: Bacteria Urine 4+ (None Seen); Hyaline Casts Urine 0-2 /LPF (0-2); RBC Urine 0-2 /HPF (0-2)
[2024-08-22 16:52] LABS: Creatinine Urine 118.07 mg/dL; Microalbum/Creatinine Ratio Ur 71.9 ug/mg cr (<30); Total Protein Urine Random 20 mg/dL (<12)
== END 2024-08-22 13:25 | disposition home or self-care (01) ==
LOC: HO.HHCL 13:24
PROVIDERS: Visit Provider Internal Medicine Nephrology
DX: E11.21 Type 2 diabetes mellitus with diabetic nephropathy (principal)
CPT/HCPCS: 81001; 82043; 82570; 84156

== ENCOUNTER 2024-09-04 09:58 | Outpatient (AMB) | payer OTHER, SELFPAY ==
[2024-09-04 09:59] VITALS: BMI 38.6
--- NOTE | 2024-09-04 09:59 | MHC.OFFVIS ---
Vital Signs 09/04/24 09:59 Height 4 ft 11 in Weight 191 lb BMI 38.6 Intake Visit Reasons: Left leg painful swelling Intake Note: PRN follow up Left leg pain and swelling w/ hx of Left RFA and Micro and Right RFA. Pt states she has a painful spot on her left LE calf, unsure if its a vein Accompanied by: Daughter Allergies penicillin G [PENICILLIN G] Allergy (Mild, Verified 09/04/24 10:03) PRURITIS amoxicillin Allergy (Unknown, Verified 09/04/24 10:03) rash, itching aspirin Adverse Reaction (Verified 09/04/24 10:03) Hives HPI HPI Left leg painful swelling: Details: Very pleasant 74-year-old female had seen us back in 2021 regarding venous insufficiency. She had undergone left and right leg Radiofrequency ablation along with left leg microphlebectomy. She had been doing fairly well since that point. Most recently developed new cut discomfort and swelling of the lower extremities. She now presents for follow-up. 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 Pneumonia due to COVID-19 virus Postmenopausal bleeding Osteopenia Obesity Microalbuminuria Medial epicondylitis Lateral epicondylitis of right elbow Injury of face Edema, lower extremity DJD of shoulder Chronic right shoulder pain Cellulitis, toe Arthritis of knee Abnormal gait Asthma Anemia Stroke Cataract of both eyes CKD (chronic kidney disease) Vitamin D deficiency HLD (hyperlipidemia) HTN (hypertension) T2DM (type 2 diabetes mellitus) Diabetes Surgical History H/O: hysterectomy Hx of colonoscopy History of temporal artery biopsy Hx of elbow surgery History of right shoulder fracture Family History Father No problems noted. Mother No problems noted. Daughter Arthritis Daughter Arthritis Daughter Arthritis Social History Household Members: Children Housing: Apartment Are you a primary urgent care to a significant other at home: No Do you presently have visiting nurse or other home services: Yes Alcohol intake: never Patient Tobacco Use Status: Never used Tobacco service: No Current occupational status: disabled Physical Exam Vital Signs: BMI result Body Mass Index 38.6 Assessment & Plan Assessment & Plan (1) Varicose veins of right lower extremity with inflammation: Comment: 12/30/2021 - right great saphenous vein radiofrequency ablation Code(s): I83.11 - Varicose veins of right lower extremity with inflammation Category: Medical Plan: In short patient has recurrent venous disease. She notes some swelling and discomfort. In addition she has areas of healed ulceration which appear to be close for now. I have taken the liberty of ordering repeat venous insufficiency testing. She will follow up with us after testing. Thank you for allowing us to assist in her care. If there are any questions or concerns please do not hesitate to contact us. (2) Varicose veins of left lower extremity with inflammation: Comment: 02/17/2022 - left great saphenous vein radiofrequency ablation 03/17/2022 - left leg microphlebectomy Code(s): I83.12 - Varicose veins of left lower extremity with inflammation Category: Medical Plan: See above Orders: Orders US venous duplex LE BI 1 Week I83.11 - Varicose veins of right lower extremity with inflammation Coding Level of Care Code Est Pt Level 4 (40440) Diagnoses Varicose veins of right lower extremity with inflammation I83.11 Varicose veins of left lower extremity with inflammation I83.12
== END 2024-09-04 10:16 | disposition home or self-care (01) ==
PROVIDERS: PCP Internal Medicine; Visit Provider Surgery Vascular Surgery
DX: I83.11 Varicose veins of right lower extremity with inflammation (principal); I83.12 Varicose veins of left lower extremity with inflammation
CPT/HCPCS: 99214

== ENCOUNTER → 2024-09-04 09:58 | Outpatient (BNVA) | payer OTHER, SELFPAY | PROVIDERS: PCP Internal Medicine; Visit Provider Surgery Vascular Surgery | DX: I83.11 Varicose veins of right lower extremity with inflammation (principal); I83.12 Varicose veins of left lower extremity with inflammation | CPT/HCPCS: 99212 ==

== ENCOUNTER 2024-09-23 08:24 | Outpatient (REF) | payer OTHER, SELFPAY ==
--- NOTE | ~2024-09-23 | US_ITS ---
EXAMINATION: US LOWER EXTREMITY VENOUS (REFLUX EXAM), BILATERAL CLINICAL INDICATION: Chronic venous insufficiency with lower extremity varicose veins, history of prior bilateral great saphenous vein ablations COMPARISON: Duplex ultrasound from 12/20/2021, 01/02/2022 and 02/20/2022 TECHNIQUE: Color flow triplex imaging and compression Doppler was performed to evaluate both the deep and the superficial systems bilaterally. To evaluate the superficial system, the examination was performed in the upright position. Color-flow Doppler ultrasound and compression ultrasound were utilized. In addition, maneuvers were utilized to demonstrate reflux. FINDINGS: 1. DEEP VENOUS ULTRASOUND OF THE RIGHT LOWER EXTREMITY: Common Femoral Vein: Compressible, normal respiratory variation and augmented flow. Femoral Vein: Compressible, normal color flow and augmentation. Popliteal Vein: Compressible, normal augmentation. Deep Reflux: There is no evidence of reflux in the deep system in either the common femoral vein, superficial femoral or the popliteal vein. There is no evidence of a Wooten's cyst. 2. SUPERFICIAL ULTRASOUND WITH DOPPLER OF RIGHT LOWER EXTREMITY: GREAT SAPHENOUS VEIN: Saphenofemoral Junction: 0.6 cm; Reflux: 2396 ms Proximal Thigh: 0.5 cm; Reflux: 0 ms Mid Thigh: Occluded Above Knee: 0.3 cm; Reflux: 2008 ms At Knee: 0.3 cm; Reflux: 2180 ms Below Knee: 0.4 cm; Reflux: 1680 ms Mid Calf: 0.3 cm; Reflux: 0 ms Ankle: 0.3 cm; Reflux: 1388 ms DUPLICATED MEDIAL GREAT SAPHENOUS VEIN: Diameter: None imaged Reflux: NA DUPLICATED LATERAL GREAT SAPHENOUS VEIN: Diameter: 0.2 cm Reflux: 2016 ms in the mid thigh SMALL SAPHENOUS VEIN: Saphenopopliteal Junction: 0.2 cm; Reflux: 0 ms Mid: 0.4 cm; Reflux: 0 ms Distal: 0.3 cm; Reflux: 0 ms VEIN OF GIACOMINI: Size: NA Reflux: NA PERFORATORS: Location: Posterior distal calf into the small saphenous vein, medial proximal calf into the great saphenous vein Size: 0.3 to 0.4 cm Reflux: None VARICOSITIES: Location: Proximal to distal thigh reconstituting into the residual great saphenous vein Size: 0.3 cm Reflux: 2300 ms VARICOSITIES: Location: Knee and diffusely throughout the calf Size: 0.3 cm Reflux: 1452 ms to 1696 ms 3. DEEP VENOUS ULTRASOUND OF THE LEFT LOWER EXTREMITY: Common Femoral Vein: Compressible, normal respiratory variation and augmented flow. Femoral Vein: Compressible, normal color flow and augmentation. Popliteal Vein: Compressible, normal augmentation. Deep Reflux: There is no evidence of reflux in the deep system in either the common femoral vein, superficial femoral or the popliteal vein. There is no evidence of a Wooten's cyst. 4. SUPERFICIAL ULTRASOUND WITH DOPPLER OF LEFT LOWER EXTREMITY: GREAT SAPHENOUS VEIN: Saphenofemoral Junction: 0.6 cm; Reflux: 1180 ms Proximal Thigh: 0.6 cm; Reflux: 0 ms Mid Thigh: Occluded Above Knee: Occluded At Knee: 0.2 cm; Reflux: 0 ms Below Knee: 0.2 cm; Reflux: 0 ms Mid Calf: 0.2 cm; Reflux: 0 ms Ankle: 0.2 cm; Reflux: 0 ms DUPLICATED MEDIAL GREAT SAPHENOUS VEIN: Diameter: None imaged Reflux: NA DUPLICATED LATERAL GREAT SAPHENOUS VEIN: Diameter: 0.3 cm Reflux: None SMALL SAPHENOUS VEIN: Saphenopopliteal Junction: 0.4 cm; Reflux: 0 ms Mid: 0.3 cm; Reflux: 0 ms Distal: 0.2 cm; Reflux: 0 ms VEIN OF GIACOMINI: Size: NA Reflux: NA PERFORATORS: Location: None imaged Size: NA Reflux: NA VARICOSITIES: Location: Distal thigh and mid calf Size: 0.3 to 0.4 cm Reflux: 1596 ms to 1820 ms US/US venous duplex LE BI IMPRESSION: 1. Right: Occluded mid thigh great saphenous vein with reflux in the residual segments in the proximal and distal thigh. Refluxing varicosities in the thigh and calf. 2. Left: Occluded mid and distal thigh great saphenous vein with reflux at the saphenofemoral junction. Refluxing varicosities in the distal thigh and calf. Electronically signed by: Moshe Yin MD 10/16/2024 09:55 AM [facility]
== END 2024-09-23 08:25 | disposition home or self-care (01) ==
LOC: HO.US 08:24
PROVIDERS: PCP Internal Medicine; Visit Provider Surgery Vascular Surgery
DX: I83.11 Varicose veins of right lower extremity with inflammation (principal)
CPT/HCPCS: 93970

== ENCOUNTER 2024-09-24 09:05 | Outpatient (AMB) | payer OTHER, SELFPAY ==
[2024-09-24 09:10] VITALS: BP 142/80; PULSE 66; O2SAT 99; BMI 38.7
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
== END 2024-09-24 09:50 | disposition home or self-care (01) ==
PROVIDERS: PCP Internal Medicine; Visit Provider Student in an Organized Health Care Education/Training Program
DX: M11.20 Other chondrocalcinosis, unspecified site (principal); M25.521 Pain in right elbow
CPT/HCPCS: 99213; G2211

== ENCOUNTER → 2024-09-24 09:05 | Outpatient (BNVA) | payer OTHER, SELFPAY | PROVIDERS: PCP Internal Medicine; Visit Provider Student in an Organized Health Care Education/Training Program | DX: M11.20 Other chondrocalcinosis, unspecified site (principal); M25.521 Pain in right elbow; I69.30 Unspecified sequelae of cerebral infarction; E78.5 Hyperlipidemia, unspecified; E11.9 Type 2 diabetes mellitus without complications; Z79.4 Long term (current) use of insulin | CPT/HCPCS: 99212 ==

== ENCOUNTER 2024-10-07 08:44 | Outpatient (REF) | payer OTHER, SELFPAY ==
--- NOTE | ~2024-10-07 | MM_ITS ---
EXAMINATION: MM SCREENING DIGITAL BREAST TOMOSYNTHESIS, BILATERAL CLINICAL INFORMATION: Screening. Asymptomatic. COMPARISON: Mammography: Comparison is made with available priors TECHNIQUE: Digital breast mammography with tomosynthesis is performed in both the craniocaudal and mediolateral oblique views along with computer-aided detection (CAD). FINDINGS: There are scattered areas of fibroglandular density (ACR BI-RADS breast composition Category b). There are no significant masses, abnormal calcifications, or other abnormalities. MM/MM tomosynthesis screening BI IMPRESSION: No mammographic evidence of malignancy. ASSESSMENT: BI-RADS BI-RADS 1 - Negative RECOMMENDATION: Routine annual mammography screening. 1 year F/U This examination should not preclude the clinical evaluation of a suspicious palpable abnormality. This patient's information was entered into a reminder system with a target due date for their next mammogram. Electronically signed by: Marylou Goldstein DO 10/16/2024 09:38 AM [facility]
== END 2024-10-07 08:45 | disposition home or self-care (01) ==
LOC: HO.MAMMO 08:44
PROVIDERS: PCP Internal Medicine; Visit Provider Internal Medicine
DX: Z12.31 Encounter for screening mammogram for malignant neoplasm of breast (principal); E11.65 Type 2 diabetes mellitus with hyperglycemia; Z79.4 Long term (current) use of insulin
CPT/HCPCS: 77063; 77067; 82947; 83036; 99212

== ENCOUNTER → 2024-10-07 09:00 | Outpatient (BNV) | payer OTHER, SELFPAY | PROVIDERS: PCP Internal Medicine; Visit Provider Internal Medicine | DX: Z12.31 Encounter for screening mammogram for malignant neoplasm of breast (principal) | CPT/HCPCS: 77063; 77067 ==

== ENCOUNTER 2024-10-07 09:36 | Outpatient (AMB) | payer OTHER, SELFPAY ==
--- NOTE | 2024-10-07 09:40 | A.OFFVIS_ITS ---
Vital Signs 10/07/24 09:44 Height 4 ft 11 in Weight 194 lb 0.108 oz BMI 39.2 BP 130/68 Blood Pressure Location Rt brachial Position Sitting Pulse 78 Pulse Source Pulse Oximeter Intake Visit Reasons: DMT2/LVM Intake Note: Patient present today to follow up on Type 2 Diabetes Mellitus. Last Diabetic Eye exam: 03/03/24 Last Podiatry Visit: 02/07/24 [employer] [facility] Most Recent HgA1C: 7.3%, 10/07/2024 Random Glucose: 148 mg/dL, Today Director Business Integration Required: No Director Business Integration Services: Director Business Integration Offered & Declined Director Business Integration Name: Patient refuse translator/interpreter Accompanied by: Daughter Allergies penicillin G [PENICILLIN G] Allergy (Mild, Verified 09/24/24 09:14) PRURITIS amoxicillin Allergy (Unknown, Verified 09/24/24 09:14) rash, itching aspirin Adverse Reaction (Verified 09/24/24 09:14) Hives HPI Comments Details: 74 YO F with PMHx T2DM, HTN, HLD who is seen in F/U for T2DM. The patient last saw Dr. Armenta 03/2024 at which time his A1C was 7.4% ?Initially diagnosed with T2DM in 1991 during routine screening exam. ?Was initially started on treatment with Metformin. This was stopped due to diminished GFR. ?Current regimen Trulicity 3.0 mg weekly and Lantus 18 units q AM. ?Checks sugars 1-2 times daily. Average 135 a.m. readings 103-155 later in the day 96-151 ?Most recent A1C: 7.3% 10/07/24 ?Family history of T2DM in Brother and Son. ?Has eyes checked yearly, last eye exam 03/03/2024 ?Denies Neuropathy, sees podiatry q 3 months. ?Has mild Nephropathy, on Benazapril 20 mg PO daily. urine micro: 85 08/22/2024 eGFR increased to 50 07/2024 ?Has HLD, on Rosuvastatin 20 mg PO daily. LDL 66 01/24/2023. ?Denies CAD. ?Has CKD Stage III. diet: improved appetite ?Weight: Stable. ?Has not had diabetes education. She has consistently refused. 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 Pneumonia due to COVID-19 virus Postmenopausal bleeding Osteopenia Obesity Microalbuminuria Medial epicondylitis Lateral epicondylitis of right elbow Injury of face Edema, lower extremity DJD of shoulder Chronic right shoulder pain Cellulitis, toe Arthritis of knee Abnormal gait Asthma Anemia Stroke Cataract of both eyes CKD (chronic kidney disease) Vitamin D deficiency HLD (hyperlipidemia) HTN (hypertension) T2DM (type 2 diabetes mellitus) Diabetes Surgical History H/O: hysterectomy Hx of colonoscopy History of temporal artery biopsy Hx of elbow surgery History of right shoulder fracture Family History Father No problems noted. Mother No problems noted. Daughter Arthritis Daughter Arthritis Daughter Arthritis Social History Household Members: Children Housing: Apartment Are you a primary career transition specialist to a significant other at home: No Do you presently have visiting nurse or other home services: Yes Alcohol intake: never Patient Tobacco Use Status: Never used Tobacco service: No Current occupational status: disabled Physical Exam Vital Signs: Last Vital Signs Pulse 78 10/07/24 09:44 BP 130/68 10/07/24 09:44 BMI result Body Mass Index 39.2 Const Other: Absence of Cushingoid features. Absence of acromegalic features. Neck exam reveals nl size thyroid about 15 gms. No thyroid nodules palpable. Heart S1 S2, Reg R/R. No M/R G. Skin exam reveals absence of vitiligo or acanthosis nigricans. Visual exam of foot performed. No ulcerations or open lesions. No inter digit maceration or fissuring. No onychomycosis, no callouses. Sensation intact to monofilament exam. Vibratory sensation is normal with 128 Hz tuning fork. Results AMB Hemoglobin A1c AMB Hemoglobin A1c 7.3 % Last Edit by MARNIE Galeano on 10/07/24 10:11 Results Reviewed Results Reviewed: Laboratory Last Values Glucose (Clinic) 148 mg/dL (60-115) H 10/07/24 09:52 Hgb A1c (Clinic) 7.3 % (4.0-6.0) H 10/07/24 09:42 Assessment & Plan Assessment & Plan (1) T2DM (type 2 diabetes mellitus): Code(s): E11.9 - Type 2 diabetes mellitus without complications Category: Medical Qualifiers: Diabetes mellitus meterman insulin use: with meterman use Diabetes mellitus complication status: with hyperglycemia Qualified Code(s): E11.65 - Type 2 diabetes mellitus with hyperglycemia; Z79.4 - director long term care (current) use of insulin Plan: 74-year-old with type 2 diabetes with nephropathy followed by renal with A1c in the office today of 7.3%. We will admit for freestyle Kelly 2 as she is having difficulty keeping up with fingersticks and due to advanced age may suffer comorbidity if she has a low sugar and falls Plan 74-year-old with type 2 diabetes with nephropathy followed by renal with A1c in the office today of 7.3%. Orders: Orders AMB Hemoglobin A1c Today E11.65 - Type 2 diabetes mellitus with hyperglycemia, Z79.4 - director long term care (current) use of insulin Medications: New flash glucose sensor (FreeStyle Kelly 2 Sensor kit) As directed 2 ea 11RF E11.65 - Type 2 diabetes mellitus with hyperglycemia, Z79.4 - longterm (current) use of insulin flash glucose sensor (FreeStyle Kelly 14 Day Sensor kit) As directed 1 ea 0RF Changed From insulin glargine (Lantus Solostar U-100 Insulin) 18 units subcut DAILY To insulin glargine (Lantus Solostar U-100 Insulin) 14 units (0.14 mL) subcut DAILY 30 days 6 mL 11RF From insulin glargine (Lantus Solostar U-100 Insulin) 14 units (0.14 mL) subcut DAILY 30 days 6 mL 11RF To insulin glargine (Lantus Solostar U-100 Insulin) 18 units (0.18 mL) subcut DAILY 30 days 6 mL 11RF Patient Instructions: The patient was counseled to achieve a target A1C of 7% (154 avg). Fasting blood sugars should be 90-130 in the morning and less than 180 two hours after meals. Reviewed the relationship between poor diabetic control and the development of complications. Check your feet daily looking for any signs of infection, ulceration and seek medical attention if this occurs. Break in shoes gradually and do not wear open-toed shoes or walk barefooted. Coding Level of Care Code Est Pt Level 4 (22263) Complex EM visit Add On G2211 Diagnoses Type 2 diabetes mellitus with hyperglycemia, with long-term current use of insulin E11.65; Z79.4 Diabetes mellitus fpc insulin use: with fpc use Diabetes mellitus complication status: with hyperglycemia Time Spent (min) 35 Comment Time spent reviewing labs/provider notes, face to face, chart doc
[2024-10-07 09:44] VITALS: BP 130/68; PULSE 78; BMI 39.2
[2024-10-07 09:58] LABS: Glucose, Whole Blood 148 mg/dL (60-115)
== END 2024-10-07 10:18 | disposition home or self-care (01) ==
PROVIDERS: PCP Internal Medicine; Visit Provider Nurse Practitioner Adult Health
DX: E11.65 Type 2 diabetes mellitus with hyperglycemia (principal); Z79.4 Long term (current) use of insulin
CPT/HCPCS: 99214; G2211

== ENCOUNTER 2024-11-13 08:43 | Outpatient (AMB) | payer OTHER, SELFPAY ==
--- NOTE | 2024-11-13 09:05 | A.OFFVIS_ITS ---
Intake Visit Reasons: Follow Up 09/23/24 US Magneto Electrician Required: No Magneto Electrician Services: Magneto Electrician Offered & Declined Magneto Electrician Name: Ashlyn-daughter Accompanied by: Daughter Allergies penicillin G [PENICILLIN G] Allergy (Mild, Verified 09/24/24 09:14) PRURITIS amoxicillin Allergy (Unknown, Verified 09/24/24 09:14) rash, itching aspirin Adverse Reaction (Verified 09/24/24 09:14) Hives HPI HPI Follow Up 09/23/24 US: Details: Very pleasant 74-year-old female presents for follow-up regarding venous disease. She has significantly swollen lower extremities. She had had prior venous ablation is by us. She now presents for follow-up with venous insufficiency testing. Of note they continue to be a source of swelling and discomfort for her. It has gotten to the point that she is requiring a walker for ambulation. 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 Pneumonia due to COVID-19 virus Postmenopausal bleeding Osteopenia Obesity Microalbuminuria Medial epicondylitis Lateral epicondylitis of right elbow Injury of face Edema, lower extremity DJD of shoulder Chronic right shoulder pain Cellulitis, toe Arthritis of knee Abnormal gait Asthma Anemia Stroke Cataract of both eyes CKD (chronic kidney disease) Vitamin D deficiency HLD (hyperlipidemia) HTN (hypertension) T2DM (type 2 diabetes mellitus) Diabetes Surgical History H/O: hysterectomy Hx of colonoscopy History of temporal artery biopsy Hx of elbow surgery History of right shoulder fracture Family History Father No problems noted. Mother No problems noted. Daughter Arthritis Daughter Arthritis Daughter Arthritis Social History Household Members: Children Housing: Apartment Are you a primary personal caregiver to a significant other at home: No Do you presently have visiting nurse or other home services: Yes Alcohol intake: never Patient Tobacco Use Status: Never used Tobacco service: No Current occupational status: disabled Review of Systems Const Denies chills, Denies fatigue, Denies fever(s), Denies weight gain and Denies weight loss ENT Denies dizziness Card Denies chest pain, Denies leg edema, Denies lightheadedness, Denies palpitations, Denies dyspnea on exertion, Denies orthopnea and Denies other Resp Denies cough and Denies dyspnea on exertion GI Denies hematochezia and Denies change in stool character Musc Details: pain over varicosities, aching of lower extremities, swelling, cramping, heaviness and tiredness, itching Denies abnormal gait, Denies muscle weakness, Denies numbness, Denies radiating pain into limb and Denies tingling Skin/Breast Reports pruritus and Denies wounds Neuro Denies abnormal gait, Denies dizziness, Denies numbness and Denies tingling Psych Denies no additional complaints Endo Denies fatigue and Denies palpitations Physical Exam Const General: cooperative, healthy appearing and comfortable Orientation/consciousness: oriented to person, oriented to place and oriented to time Neck Carotids: no bruits Chest Chest palpation & inspection: normal inspection of the chest and normal palpation of entire chest wall Resp Effort & Inspection: normal respiratory effort and able to speak in complete sentences Cardio Rate: regular rate Heart sounds: S1 normal heart sound present and S2 normal heart sound present Peripheral pulses: Peripheral pulses 2+ throughout GI Inspection: Yes normal to inspection Skin Other: +2 edema, large rope-like varicosities greater than 4 mm CEAP Classification C4 - skin color changes Ep - Etiology Primary As - superficial veins P - reflux General skin exam: dry skin Neuro General: oriented to person, oriented to place and oriented to time Extrem Right lower extremity: full ROM, normal capillary refill and edema Left lower extremity: full ROM, normal capillary refill and edema Psych Mental Status: mental status grossly normal Results Reviewed Results Reviewed: Brief summary of venous insufficiency testing is as follows: right great saphenous vein: Positive right small saphenous vein: negative right accessory vein: none present left great saphenous vein: negative left small saphenous vein: negative left accessory vein: none present Please note there is no evidence of any venous aneurysms or significant tortuosity Assessment & Plan Assessment & Plan (1) Varicose veins of right lower extremity with inflammation: Comment: 12/30/2021 - right great saphenous vein radiofrequency ablation Code(s): I83.11 - Varicose veins of right lower extremity with inflammation Category: Medical Plan: This patient has varicose veins with inflammation. They continue to be a source of discomfort for the patient. The patient has tried conservative treatment with compression, leg elevation and exercise program for over 3 months time. They have been compliant with all treatment. This has provided minimal relief for the patient. I do not anticipate this course of treatment will alter the underlying etiology. The patient has been scheduled for lower extremity venous treatment inclusive of --- right great saphenous vein Cyanoacralate ablation. Risks, benefits, and complications of this procedure has been discussed in detail with the patient including but not limited to bleeding, infection, and the development of a DVT. The patient has demonstrated a clear understanding and has consented. We will schedule the patient as soon as possible. Thank you for allowing us to participate in this patient's care. If there are any questions or concerns please do not hesitate to contact us. Coding Level of Care Code Est Pt Level 4 (67209) Diagnoses Varicose veins of right lower extremity with inflammation I83.11
== END 2024-11-13 09:46 | disposition home or self-care (01) ==
PROVIDERS: PCP Internal Medicine; Visit Provider Surgery Vascular Surgery
DX: I83.11 Varicose veins of right lower extremity with inflammation (principal)
CPT/HCPCS: 99214

== ENCOUNTER → 2024-11-13 08:43 | Outpatient (BNVA) | payer OTHER, SELFPAY | PROVIDERS: PCP Internal Medicine; Visit Provider Surgery Vascular Surgery | DX: I83.11 Varicose veins of right lower extremity with inflammation (principal) | CPT/HCPCS: 99212 ==

== ENCOUNTER 2024-12-19 10:21 | Outpatient (REF) | payer OTHER, SELFPAY ==
--- NOTE | ~2024-12-19 | XR_ITS ---
EXAMINATION: XR HAND AND WRIST COMPLETE LEFT HISTORY: M11.20 - Other chondrocalcinosis, unspecified site COMPARISON: Comparison is made with the prior examination dated 10/19/2023. FINDINGS: Three views of the left hand are submitted. The bones are osteopenic. There is no fracture or dislocation. There is mild degenerative change of the interphalangeal joint of the thumb with joint space narrowing and osteophyte formation. The remaining joint spaces are preserved. The soft tissues are unremarkable. 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 Electronically signed by: Rod Todd MD 12/19/2024 11:07 AM STEPHEN
--- NOTE | ~2024-12-19 | XR_ITS ---
EXAMINATION: XR HAND/WRIST, RIGHT CLINICAL INFORMATION: M11.20 - Other chondrocalcinosis, unspecified site COMPARISON: October 19, 2023. TECHNIQUE: PA, lateral, and oblique views of the right hand and wrist. FINDINGS: No acute cortical disruption or malalignment. No lytic or blastic lesions. Osteopenia versus osteoporosis. No gross bony erosions. No metallic or radiopaque foreign body. No subcutaneous emphysema. XR/XR hand wrist RT IMPRESSION: Osteopenia versus osteoporosis. Electronically signed by: Car Crowe MD 12/19/2024 10:54 AM STEPHEN HUNT
[2024-12-19 11:03] LABS: MANUAL DIFF FLAG NO
--- OUTSIDE RECORDS SUMMARY | 2024-12-19 11:24 | XMS_ITS | Clinical Summary ---
Author Organization [facility], Address [address] [place] [address] [place] [address] Phone Care Team Providers Care Power Transformer Repairer Name Role Phone Keely Wilburn MD Primary Care Provider + [phone] Allergies Active Allergy Reactions Criticality Noted Date Comments Amoxicillin 03/17/2024 Aspirin Hives 11/16/2022 Penicillins 09/20/2021 Medications gabapentin (NEURONTIN) 100 MG capsule Take 100 mg by mouth 3 (three) times a day Active omeprazole (PriLOSEC) [address] capsule Take 40 mg by mouth 1 (one) time each day Do not crush or chew. Active rosuvastatin (CRESTOR) 10 MG tablet Take 10 mg by mouth 1 (one) time each day Active cyanocobalamin (VITAMIN B-12) 100 MCG tablet Take 100 mcg by mouth 1 (one) time each day Active amLODIPine (NORVASC) 10 MG tablet Take 10 mg by mouth 1 (one) time each day Active tiZANidine (ZANAFLEX) 4 MG capsule Take 4 mg by mouth 3 (three) times a day Active sertraline (ZOLOFT) 100 MG tablet Take 100 mg by mouth 1 (one) time each day Active docusate sodium (COLACE) 100 MG capsule Take 100 mg by mouth 2 (two) times a day Active Dulaglutide (TRULICITY) 0.75 MG/0.5ML solution pen-injector Inject under the skin Active insulin glargine (LANTUS) 100 UNIT/ML injection Inject under the skin every night Active metFORMIN XR (GLUCOPHATE-XR) 500 MG 24 hr tablet TOME DOS TABLETAS POR V?A ORAL DOS VECES AL D?A COMIDA 0 Active omeprazole (PriLOSEC) [address] capsule 0 Active BD PEN NEEDLE NIKA U/F 32G X 4 MM misc USE TODOS LOS D? WITH INSULIN 0 Active ONE TOUCH ULTRA TEST test strip USE SEG?N LO INDICADO DOS VECES AL D?A 0 Active calcium carbonate-vitam in D 600-400 MG-UNIT per tablet TOME ARIANNA TABLETA DOS VECES AL D?A 0 Active Spacer/Aero-Hol ding Chambers (OPTICHAMBER ABRAHAM) misc USE WITH BOTH INHALERS 0 Active loperamide (IMODIUM) 2 MG capsule TOME ARIANNA C PSULA DOS VECES AL D A CUANDO SEA NECESARIO FOR DIARRHEA 0 Active lidocaine (XYLOCAINE) 5 % ointment APPLY THINLY 3 4 TIMES A DAY TO AFFECTED AREA NEEDED 0 Active Lancets (ONETOUCH DELICA PLUS [id number]) misc USE SEG N LO INDICADO PAN VECES AL D A 0 Active BD INSULIN SYRINGE U/F 31G X 5/16 0.3 ML misc USE DIRECTED ONCE DAILY 0 Active FLOVENT HFA 110 MCG/ACT inhaler INHALE 2 PUFFS DOS VECES AL D A 0 Active PAIN RELIEF EXTRA STRENGTH 500 MG tablet TAKE 2 TABLET BY ORAL ROUTE EVERY 6 HOURS NEEDED NEEDED FOR PAIN 0 Active Alcohol Swabs (ALCOHOL PREP) 70 % pads USE SEG N LO INDICADO PAN VECES AL D A 0 Active benazepril (LOTENSIN) 10 MG tablet TOME ARIANNA TABLETA TODOS LOS D 0 Active cephalexin (KEFLEX) 500 MG capsule TOME 1 C PSULA POR V A ORAL DOS VECES AL D A 0 Active Active Problems Problem Noted Date Diagnosed Date Stage 3a chronic kidney disease 03/18/2024 Type 2 diabetes mellitus with diabetic nephropat hy 12/19/2019 Hypertension 12/19/2019 Encounters Date Type Department Care Team Description 09/29/2024 1:30 PM EST Office Visit [facility], [address] [address] Terrance Garcia MD 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) 09/29/2024 Documentation Only [facility] [address] [place] [address] Juju Avila from Last 3 Months Immunizations Name Administration Dates Next Due Hepatitis B 05/21/2017,04/17/2017 Influenza Split 09/26/2014 Influenza Split High Dose Pr eservative Free IM 09/01/2020,10/27/2019 Influenza, Quadrivalent, Preservative Free 10/15 Influenza, Unspecified 08/17/2015 MMR 05/18/1998 Moderna SARS-COV-2 03/29/2022,09/20/2021, 021 Pneumococcal Conjugate Pcv 20 05/31/2023 Pneumococcal Polysaccharide 08/17/2015, 8,05/18/1998 Shingrix 05/31/2023,11/15/2022 Td 06/07/2022,06/09/2009,05/18/1998 Td, Unspecified 06/09/2009,05/18/1998 Tdap 04/17/2017 Social History Tobacco Use Types Packs/Day Years Used Date Smoking Tobacco: Never Smokeless Tobacco: Never Alcohol Use Standard Drinks/Week Comments Never 0 (1 standard drink = 0.6 oz pur e alcohol) AUDIT-C Answer Date Recorded Q1: How often do you have a drink containing alc ohol? Never 12/09/2019 Average Number of Drinks Not on file 020 Frequency of Binge Drinking Not on file 11/13 Comments Unknown Sex and Gender Information Value Date Recorded Sex Assigned at Not on file Legal Sex Female 12:05 PM EST Gender Identity Not on file Sexual Orientation Not on file Last Filed Vital Signs Vital Sign Reading Time Taken Comments Blood Pressure 153/76 09/29/2024 1:37 PM EST Pulse 65 09/29/2024 1:37 PM EST Temperature - - Respiratory Rate - - Oxygen Saturation - - Inhaled Oxygen Concentration - - Weight 81.4 kg (179 lb 6.4 oz) 12/09/2019 2:42 P M EST Height - - Body Mass Index - - Plan of Treatment Upcoming Encounters Date Type Department Care Team (Late st Contact Info) Description 03/16/2025 3:00 PM EDT Office Visit [facility], [address] [address] Terrance Garcia MD [address] [place] [address] Health Maintenance Due Date Last Done Comments Diabetes: Ophthalmology Exam 12/19/2019 Diabetes: Pedal Pulse Checked 12/19/2019 Diabetes: Sensory Foot Exam 12/19/2019 Diabetes: Visual Foot Exam 12/19/2019 Diabetes: Hemoglobin A1C 08/16/2024 024, 01/24/2023, 09/28/2022, Additional history exists Hepatitis B Vaccine Aged Out 05/21/2017, 7 No longer eligible based on patient's age to complete this topic Pneumococcal Vaccine: 65+ Years Completed 05/31/2023, 08/17/2015, 07/04/2008, Additional history exists Influenza Vaccine Completed 07/31/2024, , 10/27/2019, Additional history exists Procedures Procedure Name Priority Date/Time Associated Diagnosis Comments HEMOGLOBIN A1C Routine 09/28/2022 2:01 PM EST Type 2 diabetes mellitus with diabetic nephropathy (HCC) from Last 3 Months or Most Recently Relevant to Health Maintenance Results * (ABNORMAL) Hemoglobin A1c (09/28/2022 2:01 PM EST) Hemoglobin A1C 6.8(H) (4.0-5.6) % [facility] Comment: MONITORING: In known diabetic patients, hemoglobin A1c targets should be discussed with health care provider. DIAGNOSTIC USE: ??The [place] Diabetes Association (ADA) and the World Health Organization (WHO) recommend the use of HbA1c to diagnose diabetes using a threshold of 6.5%. Patients who have an HbA1c between 5.7% and 6.4% are considered at increased risk for developing diabetes in the future. CAUTION: Falsely low HbA1c results may be observed in patients with hemolytic anemia, homozygous forms of abnormal hemoglobin (e.g. SS, CC, SC), , recent blood loss or hemoglobin F greater than 7%. Fructosamine may be used as an alternate test in these cases. REFERENCE: ADA: Standards of Medical Care in Diabetes 2020, The Journal of Clinical and Applied Research and Education Volume 43, Supplement 1 Testing performed or reported by [facility], a Service of [facility], [address] [place] [id number] Luis Andino MD, Suction Operator [facility]# [id number] Blood (Blood, Venous) 09/28/2022 2:01 PM EST 09/28/2022 2:03 PM EST us Terrance Garcia MD LAB BLOOD ORDERABLES Final Re sult [facility] from Last 3 Months or Most Recently Relevant to Health Maintenance Insurance [address] [place], [place] [id number] [place] [address] CARE DUAL SNP ([id number]) [place] [id number] Care Teams Power Transformer Repairer Relationship Specialty Start Date End Date Keely Wilburn MD [address] [place] [phone] PCP - General Internal Medicine 02/11/20
--- OUTSIDE RECORDS SUMMARY | 2024-12-19 11:24 | XMS_ITS | Encounter Summary ---
Author Organization [facility] Address [address] [place] [address] Phone Care Team Providers Care Pearler Name Role Phone Keely Wilburn MD Primary Care Provider + [phone] Encounter Details Date Type Department Care Team (Late Contact Info) Description 09/29/2024 Documentation Only [facility] [address] [place] [address] Juju Avila [address] [place] [id number] Social History Tobacco Use Types Packs/Day Years [...] on file Sexual Orientation Not on file documented as of this encounter Plan of Treatment Upcoming Encounters Date Type Department Care Team (Late st Contact Info) Description 03/16/2025 3:00 PM EDT Office Visit [facility] [address] [place] [address] Terrance Garcia MD [address] [place] [address] [address] [place] [address] documented as of this encounter Visit Diagnoses Not on filedocumented in this encounter Care Teams Pearler Relationship Specialty Start Date End Date Keely Wilburn MD [address] [place] [phone] PCP - General Internal Medicine 02/11/20 documented as of this encounter
--- OUTSIDE RECORDS SUMMARY | 2024-12-19 11:25 | XMS_ITS | Encounter Summary ---
Author Organization [facility] Address [address] [place] [address] Phone Care Team Providers Care Brake Operator Sheet Metal Name Role Phone Keely Wilburn MD Primary Care Provider + [phone] Encounter Details Date Type Department Care Team (Late Contact Info) Description 03/18/2024 Documentation Only [facility] [address] [place] [address] Juju Avila [address] [place] [id number] Social History Tobacco Use Types Packs/Day Years [...] Visit [facility] [address] [place] [address] Terrance Garcia MD [address] [place] [address] [place] [address] documented as of this encounter Visit Diagnoses Not on filedocumented in this encounter Care Teams Brake Operator Sheet Metal Relationship Specialty Start Date End Date Keely Wilburn MD [address] [place] [phone] PCP - General Internal Medicine 02/11/20 documented as of this encounter
--- OUTSIDE RECORDS SUMMARY | 2024-12-19 11:25 | XMS_ITS ---
Author Organization [facility] Address [address] [place] [phone] Care Team Providers Care Communications Project Manager Name Role Phone Cosmo VAZQUEZ, Keely Primary Care Provider Unavail able Rod Arthur Unavailable [phone] Mathew Boss Unavailable Unavailable REASON FOR VISIT screening Encounters Encounter Location Date Provider Diagnosis [facility] Outpatient [address] [place], [place] [id number] 09/12/2023 Rod Arthur PLAN OF TREATMENT No Information
--- OUTSIDE RECORDS SUMMARY | 2024-12-19 11:25 | XMS_ITS | Encounter Summary ---
Author Organization [email or web address] Address [address] [place] [address] Care Team Providers Care Identification Technician Name Role Phone Keely Wilburn MD Primary Care Provider + Reason for Visit * Reason Onset Date Comments Email paperwork 12/26/2022 Encounter Details Date Type Department Care Team ([facility] st Contact Info) Description 12/26/[address] [facility] [address] [place], [place] [phone] Keely Wilburn MD [address] [place] [address] Email paperwork Social History Tobacco Use Types Packs/Day Years Used Date Smoking Tobacco: Never Smokeless Tobacco: Never Alcohol Use Standard Drinks/Week Comments Never 0 (1 standard drink = 0.6 oz pur e alcohol) Depression Answer Date Recorded Patient Health Questionnaire-2 Score 0 11/16/2022 Comments Unknown Sex and Gender Information Value Date Recorded Sex Assigned at Female 09/11/2022 10:14 AM EDT Legal Sex Female 10:14 AM EDT Gender Identity Choose not to disclose 10:14 AM EDT Sexual Orientation Choose not to disclose 2021 10:14 AM EDT documented as of this encounter Miscellaneous Notes * Telephone Encounter - Wernermeredithvarinderclarisse WashburnLylesglenn Rosa - 12/26/2022 3:13 PM EST Tc from Cathryn with [facility] stating that she spoke with a nurse regarding some paperwork that nurse was having trouble faxing over and Cathryn gave over her but she has not receive anything back, the email is [email or web address] If any information needed please contact Cathryn at [phone] documented in this encounter Plan of Treatment Upcoming Encounters Date Type Department Care Team (Late st Contact Info) Description 01/15/2025 10:30 AM EST Office Visit [facility] [address] [place] [address] Keely Wilburn MD [address] [place] [phone] documented as of this encounter Visit Diagnoses Not on filedocumented in this encounter Care Teams Identification Technician Relationship Specialty Start Date End Date Keely Wilburn MD [address] [place] [phone] PCP - General Family Medicine 10/27/19 [employer] 08/06/24 documented as of this encounter
--- OUTSIDE RECORDS SUMMARY | 2024-12-19 11:25 | XMS_ITS | Data Portability ---
Author Organization [employer] [place] [employer] Address [address] [place] [address] Care Team Providers Care Manager Commercial Name Role Phone HIM CCA OTHER [facility] Referring Provider Assessment Encounter Date Assessment Date Assessment LastModified by Organization Details LastModified Time 07/23/2024 07/23/2024 I provided real -time medical direction via phone for this encounter and was available for additional phone-based assistance as needed. I have reviewed and agree with the Assessment and Plan as documented by the Operations Manager/Coordinator. Patient given the opportunity to ask questions. Our service contacted for an assessment of: Edema and discoloration of the leg As per above, patient with chronic venous stasis and wanted an evaluation for possible infection. Please see uploaded pictures. Patient with no increase in pain. Per senior embedded software engineer on the scene, vital signs are stable the patient is afebrile. Per senior embedded software engineer on the scene there was no increase in warmth or color changes suggestive of infection. Impression: Chronic venous stasis of the bilateral lower extremity Plan: Patient would benefit from compression stockings as well as increased medical management. Will apply compressive Sharath hose in the field today and have her follow-up with her PCP as soon as possible. Allergies: Reviewed and updated to include aspirin and penicillin PCP f/u: Patient would benefit from an in-person visit to address chronic venous stasis of the bilateral lower extremities. We discussed the diagnostic uncertainty of home visits and the risk associated with this. In this case, the patient and I felt this to be an acceptable and reasonable amount of risk given the benefit of avoiding an ED visit. We discussed the need to seek care urgently/emergentl y in the setting of any new or worsening serious symptoms, particularly fever chills lightheadedness altered mental status [email or web address] Not available 07/23/2024 19:44:44 12/02/2024 12/02/2024 I provided real -time medical direction via phone for this encounter, and was available for additional phone based assistance as needed. I have reviewed and agree with the Assessment and Plan as documented by the Operations Manager/Coordinator. We discussed the diagnostic uncertainty of home visits and the risk associated with this. The patient given the opportunity to ask questions. [email or web address] Not available 12/03/2024 02:39:54 Plan of Treatment Reminders Order Date Submit Date Provider Last Modified By Organization Details Last Modified Time Details Appointments None recorded. Lab BMP, serum or plasma 2024 025 [email or web address] [facility], [address] [place] [address], [phone], 5 02:43:56 rapid flu (A+B) 2024 025 [email or web address] 0 [facility], [address] [place] [address], [phone], 5 02:43:56 rapid SARS CoV 2 Ag, QL IA, respiratory specimen 2024 025 [email or web address] [facility], [address] [place] [address], [phone], 5 02:43:56 Referral None recorded. Procedures None recorded. Surgeries None recorded. Imaging electrocard iogram 2024 025 [email or web address] [facility], [address] [place] [address], [phone], 5 02:43:56 Medication Orders lactated Ringers intravenous solution 2024 025 [email or web address] [id number], [address] [place], [address], 5 02:43:56 ondansetron HCl (PF) 4 mg/2 mL injection solution 2024 025 [email or web address] [facility][id number], [address] [place], [address], 5 02:43:56 famotidine (PF) 20 mg/2 mL intravenous solution 2024 025 [email or web address] [facility][id number], [address] [place], [address], 02:43:56 Patient TargetsNo targets recorded. Patient InstructionsNo instructions recorded. Reason for Referral None Reported. Results Created Date Observation Date Name Description Value Unit Range Abnormal Flag Note LastModifiedBy Organization Detail LastModifiedTime 12/02/1912/02/2024 rapid SARS CoV 2 Ag, QL IA, respi rator y speci men rapid SARS CoV 2 Ag, QL IA, respiratory specimen negati ve Not Available [facility] [address] [place] [address], [phone], 12/02/2024 12:32:06 12/02/19 25 12/02/2024 rapid flu (A+B) Flu negati ve Not Available [facility] [address] [place] [address], [phone], 12/02/2024 12:32:06 12/03/19 25 12/03/2024 elect oh castrogr am No observ ation record ed. [email or web address] [address], [phone], 12/03/2024 02:41:54 Result Notes None recorded. Procedures Surgical History None recorded. Imaging Results Imaging Date Name Status LastModified by Organization Details LastModified Time 12/03/2024 electrocardiogram completed [email or web address] [address], [phone], 12/03/2024 02:41:54 Procedure Notes None recorded. Medical Equipment None Reported. Allergies Allergen ID Allergen Name Allergen Category Reaction Reaction Severity Criticality Documentation Date Start Date Code Code System Note Provider Name and Address Organization Details Recorded Time 6155 aspirin medicatio n Not available Not available Not available 07/23/2024 1191 RxNorm Not Available [facility] 04:57:50 6156 Product containin g penicilli n and antibioti c (product) medicatio n Not available Not available Not available 07/23/2024 87184 05 SNOMED Not Available [facility] 4 04:57:50 Medications Name Sig Start Date Stop Date Status Note LastModified by Organization Details LastModified Time albuterol sulfate 2.5 mg/3 mL (0.083 %) solution for nebulization INHALE 1 VIAL VIA NEBULIZER EVERY 4 HOURS NEEDED FOR COUGH/WHEEZ E active Not Available Not Available No t Available azithromycin 250 mg tablet TAKE 2 TABLETS BY MOUTH TODAY, THEN TAKE 1 TABLET DAILY FOR 4 DAYS DIRECTED active Not Available Not Available No t Available albuterol sulfate 1.25 mg/3 mL solution for nebulization active Not Available Not Available Not Available prednisone 5 mg tablet TAKE 2 TABLETS DAILY FOR 7 DAYS, THEN 1 TABLET DAILY FOR 7 DAYS. active Not Available Not Available No t Available lactated Ringers intravenous solution Inject 1000 mL by intravenous route. 2024 active Not Available Not Available Not Avai lable amlodipine 5 mg tablet active Not Available Not Available No t Available allopurinol 100 mg tablet TAKE 1 TABLET BY MOUTH ONCE DAILY active Not Available Not Available No t Available butalbital-a cetaminophen -caffeine 50 mg-325 mg-40 mg tablet TAKE 1 TABLET BY MOUTH EVERY 4 HOURS NEEDED FOR HEADACHE (NOT COVERED) active Not Available Not Available No t Available ondansetron 8 mg disintegrati ng tablet DISSOLVE 1 TABLET ON TONGUE EVERY 8 HOURS NEEDED FOR NAUSEA active Not Available Not Available No t Available ketorolac 0.5 % eye drops INSTILL 1 DROP INTO BOTH EYES 4 TIMES DAILY FOR PAIN active Not Available Not Available No t Available OneTouch Ultra Test strips USE 1 TEST STRIP 3 TIMES DAILY active Not Available Not Available Not Available meclizine 25 mg tablet TAKE 1 TABLET BY MOUTH EVERY DAY NEEDED FOR DIZZINESS active Not Available Not Available No t Available amlodipine 10 mg tablet TAKE 1/2 TABLET BY MOUTH DAILY active Not Available Not Available Not Available lidocaine 5 % topical patch APPLY 1 PATCH IN THE MORNING REMOVE AND DISARD PATCH WITHIN 12 HOURS OR DIRECTED active Not Available Not Available No t Available brimonidine 0.2 % eye drops INSTILL 1 DROP INTO BOTH EYES TWICE A DAY active Not Available Not Available Not Available docusate sodium 100 mg capsule TAKE 1 CAPSULE BY MOUTH TWICE A DAY NEEDED active Not Available Not Available No t Available omeprazole 20 mg capsule,nikos yed release TAKE 1 TABLET ORALLY EVERY MORNING FOR 30 DAYS active Not Available Not Available No t Available benazepril 20 mg tablet TAKE 1 TABLET (20 MG) BY MOUTH IN THE MORNING. DC BENAZEPRIL/ HCTZ active Not Available Not Available No t Available montelukast 10 mg tablet TAKE 1 TABLET BY MOUTH EVERY DAY FOR ALLERGY SYMPTOMS active Not Available Not Available No t Available gabapentin 100 mg capsule TAKE 2 CAPSULES BY MOUTH EVERY DAY AT BEDTIME active Not Available Not Available No t Available methylpredni solone 4 mg tablets in a dose pack TAKE 6 TABLETS ON DAY 1 DIRECTED ON PACKAGE AND DECREASE BY 1 TAB EACH DAY FOR A TOTAL OF 6 DAYS active Not Available Not Available No t Available timolol maleate 0.5 % eye drops INSTILL 1 DROP INTO BOTH EYES TWICE A DAY active Not Available Not Available Not Available sertraline 50 mg tablet TAKE 2 TABLETS BY MOUTH EVERY DAY AT BEDTIME active Not Available Not Available No t Available Ventolin HFA 90 mcg/actuatio n aerosol inhaler active Not Available Not Available Not Available rosuvastatin 20 mg tablet TAKE 1 TABLET BY MOUTH ONCE DAILY active Not Available Not Available No t Available calcium 500 mg (as carbonate)-v it D3 10 mcg (400 unit) chewable tablet CHEW 1 TABLET BY MOUTH 2 TIMES DAILY. active Not Available Not Available No t Available ondansetron HCl (PF) 4 mg/2 mL injection solution Take 4 mg by injection route. 2024 active Not Available Not Available Not Avai lable Lantus Solostar U-100 Insulin 100 unit/mL (3 mL) subcutaneous pen INJECT 18 UNITS SUBCUTANEOU SLY ONCE DAILY active Not Available Not Available No t Available budesonide 1 mg/2 mL suspension for nebulization INHALE 1 VIAL VIA NEBULIZER TWICE A DAY active Not Available Not Available Not Available famotidine (PF) 20 mg/2 mL intravenous solution Inject 20 mg by intravenous route. 2024 active Not Available Not Available Not Avai lable diclofenac 1 % topical gel 2 G TOPICALLY 2 TIMES A DAY NEEDED FOR PAIN active Not Available Not Available No t Available BD AutoShield Duo Pen Needle 30 gauge x 16 USE WITH INSULIN TWICE DAILY active Not Available Not Available Not Available Trulicity 1.5 mg/0.5 mL subcutaneous pen injector INJECT 1.5 MG SUBCUTANEOU SLY ONCE A WEEK active Not Available Not Available No t Available Trulicity 3 mg/0.5 mL subcutaneous pen injector INJECT 1 PEN SUBCUTANEOU SLY ONCE WEEKLY active Not Available Not Available No t Available Vitals Date Recorded Body weight Respiratory rate Heart rate Body height Body temperature Oxygen saturation Oxygen saturation in Arterial blood by Pulse oximetry Systolic blood pressure Diastolic blood pressure Provider Name and Address Organization Details Last Updated DateTime 4 74496.6 g 18 /min 60 /min 157.48 cm 98.4 [degF] 97 % 97 % 173 mm[Hg] 82 mm[Hg] Not Available [facility] 4 17:39:44 Date Recorded Body height Body temperature Oxygen saturation Oxygen saturation in Arterial blood by Pulse oximetry Body weight Respiratory rate Heart rate Systolic blood pressure Diastolic blood pressure Provider Name and Address Organization Details Last Updated DateTime 5 162.56 cm 98.8 [degF] 97 % 97 % 14246.5 6 g 16 /min 84 /min 130 mm[Hg] 71 mm[Hg] Not Available [employer] 5 10:44:43 Social History None recorded. Functional Status None recorded. Mental Status None recorded. Family History Nothing Reported. Medical History No medical history recorded. Gynecological HistoryNo gynecological history recorded. Obstetrics History GPAL:G 0 P 0 0 0 0 Past Encounters Encounter ID Performer Location Encounter Start Date Encounter Closed Date Diagnosis/Indication Diagnosis SNOMED-CT Code Diagnosis ICD10 Code Diagnosis Note [id number] Paz Gaona MD Main - [address] [address] 07/23/2024 17:39:33 07/23/2024 22:02:00 Venous stasis edema of bilateral lower limbs [id number] I87.2 [id number] Ely Anne MD Main - [address] [address] 12/02/2024 10:44:41 12/03/2024 18:59:31 Chest pain 84882183 R07.9 Patient initially declined the ER, feeling better after medication , however, given EKG changes I advised the patient that while the chest pain is likely related to the vomiting/G ERD, I cannot rule out ACS based on 1 EKG and it would be in her best interest to be fully evaluated in the emergency department . She ultimately agreed, sent by EMS to [facility] Mia lund, report called to the Xpect line in the ER Acute gastroenteritis 69 435630 K52.9 Color improved feels better and dry heaves stopped /less discomfort status post meds and hydration. /Concerned because BUN 36/creatin ine 1.6 and in August 2023 BUN was 26 creatinine 0.99. Other labs non-oncern ing Health Concerns Section Related Observation LastModified by Organization Detai ls LastModified Time None Recorded Concern Status LastModified by Organization Details LastModified Time None Recorded Advance Directives Directive None Recorded Payers Encounter Date Sequence Insurance Name Policy Number Policy Amezquita Covered Member ID [id number] Member ID Guarantor Name 07/23/2024 1 [facility] - DOS ON OR AFTER 2023 - DUAL ELIGIBLE - [employer]LTER OPTIONS AND ONE CARE (MEDICARE REPLACEMENT/ADV ANTAGE - HMO) [facility] [id number] [facility] 12/02/2024 1 [facility] - DOS ON OR AFTER 2023 - DUAL ELIGIBLE - SHELTER OPTIONS AND ONE CARE (MEDICARE REPLACEMENT/ADV ANTAGE - HMO) [facility] [id number] [facility] Notes Date Note Type Note Provider Name and Address Organization Details Recorded Time 07/23/2024 text/html HPI: PMHx:Varicose veins of lower extremities.Call returned to [facility] to triage below. Spoke with daughter who reports pt having bilateral swelling of lower legs but left more than right x 1 day. Having weeping fluid. Mild pain. No rash or open sores. No fever. No SOB or CP. NO swelling of upper extremities. No known injury to area. Daughter advised of disposition, unable to come into our walk in center. Agrees to [facility] referral for evaluation. Confirmed address, phone number and allergies. .................... .................... .................... .................... .................... .................... .................... . CRC Nurse Triage Notes (Sadi Live): Chief Complaints: Cellulitis PMH: COPD/Asthma, Hypertension, Diabetes Allergies: Aspirin, Penicillin Comments: Reviewed HPI Operations Manager/Coordinator Organization Information for Norman [employer] Business Legal Name: [facility] Address: [address] [place] [address], [place] [address], Lead Burner Apprentice: Donnie LAIRD No.: [id number] Operations Manager/Coordinator POC Test Results from Norman Stern Blood Glucose Measurement (16:50:25) Blood Glucose: 179 mg/dL .................... .................... .................... .................... .................... .................... .................... . Operations Manager/Coordinator Note From Norman Stern: Patient seated on couch. Patient reports she had a Cortizone injection in each knee today, when she came home, she found her lower left leg was leaking clear fluid. Patient complains of pain on both lower legs between knees and ankles. Patient states legs have been swollen for months. Patient states advised her to stop using compression stockings due to circulation problems months ago. Patient states pain increases when she walks.Patient denies chest pain, nausea, vomiting, diarrhea, difficulty breathing, difficulties, sleeping, or laying supine. Patient denies recent cough or any other complaints. Patient states she has PCP appointment in seven days. Patient, pink warm, dry, secondary exam unremarkable, Swelling noted, lower legs, clear fluid from left dias. No heat, redness, or pus noted. good ROM, good CSM, negative calf tenderness.[facility] advises patient to keep appointment next week. Advises patient to consider using compression stockings, dinh wraps and follow up with PCP. [facility] advises patient to use Tylenol as directed for pain. Patient says she has same on hand, red flags patient education discussed. Operations Manager/Coordinator Allergies: Aspirin, Penicillin .................... .................... .................... .................... .................... .................... .................... . Disposition: Bethel Paz Gaona MD [address] [place] [address],[address], [place], [address] [employer] 07/23/2024 19:44:57 12/02/2024 text/html CRC Nurse Triage Notes (Perlita Segura - RN): Reason For Request: Patient has Vomiting since Sunday, and has Diarrhea. Patient Reports: Vague abdominal pain greater than 24 hours; Diarrhea ? no blood in stool; Nausea with or without vomiting; Inability to tolerate foods, fluids or daily medications Denies: Sharp focal or diffuse abdominal pain Vomiting blood/coffee ground material Bloating, jaundice new onset with pain Nausea and vomiting greater than 2 hours with abdominal pain Tearing pain that radiates to back Food Impaction Constipation Chief Complaints: Vomiting, Diarrhea, Abdominal pain PMH: COPD/Asthma, Hypertension, Diabetes Mellitus Type 2 PMH Reviewed at 12/02/2024: Allergies Reviewed at 12/02/2024:28 Comments: Vomiting and diarrhea since Sunday. Reports abdominal and chest pain. Patient was taking care of family with GI symptoms. Taking Imodium OTC. Unable to tolerate anything PO. Denies blood in stool. Patient is experiencing dizziness. Education provided on the response time and the member was advised to monitor reported s/s and seek emergency treatment if needed. Operations Manager/Coordinator Organization Information for Mahin Reed Business Legal Name: [employer].? Address: [address] [place] [address], Lead Burner Apprentice: Jeffrey Cheng MD CLIA No.: [id number] Operations Manager/Coordinator POC Test Results from Mahin Reed - ALS Rapid COVID antigen (11:01:12) COVID: - Rapid influenza antigen (::13) Flu: - EKG (11::17) EKG test performed. Attachments uploaded as part of this test result can be found under Documents section. iSTAT Chem8+ (11:03:44) Na: 140 mEq/L K: 4.1 mEq/L Cl: 107 mEq/L iCa: 1.21 mmol/L TCO2: 21 mmol/L Glu: 149 mg/dL BUN: 36 mg/dL Crea: 1.6 mg/dL Hct: 37 % Hb: 12.6 g/dL A Attachments uploaded as part of this test result can be found under Documents section. .................... .................... .................... .................... .................... .................... .................... . Operations Manager/Coordinator Note From Mahin Reed: MI makes pt contact. She is found laying Fowlers on her R side in her. Her eyes are closed, she is wearing a surgical mask, and her skin appears to be pale and dry. She is not in acute distress, no stridor or sonorous respirations are heard. She turns and makes eye contact w/ MIH and says hello. Pt answers all questions using appropriate words and a linear and logical thought pattern and she follows all commands. There is no facial droop or slurred speech noted and she is not bleeding anywhere. She moans mildly w/ discomfort and periodically dry-heaves into a basin next to her in the bed. Pt is [place]-speaking only, so interpretation services are obtained via cell phone to provide history. Pt endorses abdominal pain, chest pain, and n/v/d. She says the n/v/d has been going on for three days and the cp started last night. She describes the chest pain as sharp and strong, bad pain and says it gets worse w/ vomiting. She denies any recent trauma to the chest, head, or stomach. It is also reported she has been around family members whom have been ill w/ GI symptoms. She is denying blood in emesis or stool and stool is watery. She has been unable to tolerate food or fluids and has been unable to take her daily medications. Pt denies KHOURY, sore throat, or fevers/chills and cough. She consents to evaluation and treatment today. Daughter arrives on scene to [facility] providing translation services. [facility] obtains vital signs and pt is assessed. She is swabbed for COVID/flu and found to be negative for all three. An EKG is obtained and found to be a sinus rhythm w/ artifact, regular rhythm, left axis deviation, and inverted T-waves in leads I and aVl. IV access is obtained w/ a 21ga butterfly needle and blood is obtained for bmp in anticipation of clinical course. [facility] contacts [facility] and [facility] orders 1 L LR, 4mg IV zofran, and 20mg IV famotadine, w/ repeat dose of zofran if needed. [facility] also raises concerns regarding pt's EKG. A 20ga IV is attempted in the R forearm and a second is attempted in the R AC and both are unsuccessful. A 20ga IV is obtained in the dorsum of the R hand and locked w/ a saline lock. 4mg zofran is administered SIVP and 1 L LR is run for 500mls. 20mg IV famotadine is administered and fluids are resumed and remaining 500mls is administered. Pt tolerated treatments well and expresses an improvement in the nausea and chest pain. [facility] contacts [facility] to discuss pt transport to the ED for a cardiac workup. [facility] discusses this w/ family and pt and pt is amendable to transport by ambulance to [facility]. Pt is transported via [facility] and [facility] calls in pre-arrival report. [facility] is clear. Report completed by JAIR Reed [id number]. [facility] Lab Orders: BMP, serum or plasma: Performed rapid flu (A+B): Performed rapid SARS CoV 2 Ag, QL IA, respiratory specimen: Performed .................... .................... .................... .................... .................... .................... .................... . [facility] Consulted: Ely Anne .................... .................... .................... .................... .................... .................... .................... . Disposition: Fulfilled Ely Anne MD [address] [facility],[address], [place], [address], [employer] 12/03/2024 02:46:08 OBGyn Episode No OBEpisode recorded.
--- OUTSIDE RECORDS SUMMARY | 2024-12-19 11:25 | XMS_ITS | Encounter Summary ---
Author Organization [facility] Address [address] [place] [address] Phone Care Team Providers Care Embedded Software Test Engineer Name Role Phone Keely Wilburn MD Primary Care Provider + [phone] Encounter Details Date Type Department Care Team (Late Contact Info) Description 03/18/2024 Documentation Only [facility] [address] [place] [address] Juju Avila [address] [place] [phone] Social History Tobacco Use Types Packs/Day Years [...] Visit [facility] [address] [place] [address] Terrance Garcia MD [address] [place] [address] [place] [address] documented as of this encounter Visit Diagnoses Not on filedocumented in this encounter Care Teams Embedded Software Test Engineer Relationship Specialty Start Date End Date Keely Wilburn MD [address] [place] [id number] PCP - General Internal Medicine 02/11/20 documented as of this encounter
--- OUTSIDE RECORDS SUMMARY | 2024-12-19 11:25 | XMS_ITS | Encounter Summary ---
Author Organization [facility] Address [address] [place] [address] Phone Care Team Providers Care Qc Lab Technician Name Role Phone Keely Wilburn MD Primary Care Provider + [phone] Encounter Details Date Type Department Care Team (Late st Contact Info) Description 10/11/2021 Documentation Only [facility] [address] [place] [address] Terrance Garcia MD [address] [place] [address] [place] [address] Social History Tobacco Use Types Packs/Day Years [...] Visit [facility] [address] [place] [address] Terrance Garcia MD [address] [facility] [place] [address] documented as of this encounter Visit Diagnoses Not on filedocumented in this encounter Care Teams Qc Lab Technician Relationship Specialty Start Date End Date Keely Wilburn MD [address] [place] [address] PCP - General Internal Medicine 02/11/20 documented as of this encounter
--- OUTSIDE RECORDS SUMMARY | 2024-12-19 11:25 | XMS_ITS | Encounter Summary ---
Author Organization [facility] Address [address] [place] [address] Phone Care Team Providers Care Instructor Knitting Name Role Phone Keely Wilburn MD Primary Care Provider + [phone] Encounter Details Date Type Department Care Team (Late Contact Info) Description 03/18/2024 Documentation Only [facility] [address] [place] [address] Juju Avila [address] [place] [phone] Social History Tobacco Use Types Packs/Day Years [...] Visit [facility] [address] [place] [address] Terrance Garcia MD [address] [place] [address] [place] [address] documented as of this encounter Visit Diagnoses Not on filedocumented in this encounter Care Teams Instructor Knitting Relationship Specialty Start Date End Date Keely Wilburn MD [address] [place] [address] PCP - General Internal Medicine 02/11/20 documented as of this encounter
--- OUTSIDE RECORDS SUMMARY | 2024-12-19 11:25 | XMS_ITS | Encounter Summary ---
Author Organization [facility] Address [address] [place] [address] Phone Care Team Providers Care Natural Gas Treating Unit Operator Name Role Phone Keely Wilburn MD Primary Care Provider + [phone] Encounter Details Date Type Department Care Team (Late Contact Info) Description 03/18/2024 Documentation Only [facility] [address] [place] [address] Juju Avila [address] [place] [phone] Social History Tobacco Use Types Packs/Day Years [...] Visit [facility] [address] [place] [address] Terrance Garcia MD [address] [place] [address] [place] [address] documented as of this encounter Visit Diagnoses Not on filedocumented in this encounter Care Teams Natural Gas Treating Unit Operator Relationship Specialty Start Date End Date Keely Wilburn MD [address] [place] [address] PCP - General Internal Medicine 02/11/20 documented as of this encounter
--- OUTSIDE RECORDS SUMMARY | 2024-12-19 11:25 | XMS_ITS | Encounter Summary ---
Author Organization [facility] Address [address] [place] [address] Phone Care Team Providers Care Academic Program Specialist Name Role Phone Keely Wilburn MD Primary Care Provider + [phone] Encounter Details Date Type Department Care Team (Late Contact Info) Description 03/18/2024 Documentation Only [facility] [address] [place] [address] Juju Avila [address] [place] [phone] Social History Tobacco Use Types Packs/Day Years [...] Visit [facility] [address] [place] [address] Terrance Garcia MD [address] [place] [address] [place] [address] documented as of this encounter Visit Diagnoses Not on filedocumented in this encounter Care Teams Academic Program Specialist Relationship Specialty Start Date End Date Keely Wilburn MD [address] [place] [address] PCP - General Internal Medicine 02/11/20 documented as of this encounter
--- OUTSIDE RECORDS SUMMARY | 2024-12-19 11:25 | XMS_ITS | Encounter Summary ---
Author Organization [facility] Address [address] [place] [address] Phone Care Team Providers Care Vending Machine Mechanic Name Role Phone Keely Wilburn MD Primary Care Provider + [phone] Encounter Details Date Type Department Care Team (Late Contact Info) Description 03/18/2024 Documentation Only [facility] [address] [place] [address] Juju Avila [address] [place] [phone] Social History Tobacco Use Types Packs/Day Years [...] Visit [facility] [address] [place] [address] Terrance Garcia MD [address] [place] [address] [place] [address] documented as of this encounter Visit Diagnoses Not on filedocumented in this encounter Care Teams Vending Machine Mechanic Relationship Specialty Start Date End Date Keely Wilburn MD [address] [place] [address] PCP - General Internal Medicine 02/11/20 documented as of this encounter
--- OUTSIDE RECORDS SUMMARY | 2024-12-19 11:25 | XMS_ITS ---
Author Organization [facility] Address [address] [place] [address] Care Team Providers Care Full Decator Operator Name Role Phone Keely Wilburn MD Primary Care Provider Unavail able Rod Arthur Unavailable [phone] Mathew Boss Unavailable Unavailable REASON FOR VISIT screening colon Encounters Encounter Location Date Provider Diagnosis [facility] Outpatient [address] [place] [phone] 02/06/2024 Rod Arthur Encounter for scre ening colonoscopy Z12.11 ; Colon polyps K63.5 ; Diverticulosis of large intestine without perforation or abscess without bleeding K57.30 and Other hemorrhoids K64.8 ASSESSMENTS Encounter Date Diagnosis Assessment Notes Treatment Notes Treatment Clinical Notes 02/06/2024 Encounter for screening colonoscopy (ICD-10 - Z12.11) 02/06/2024 Colon polyps (ICD-10 - K63.5) 02/06/2024 Diverticulosis of large intestine without perforation or abscess without bleeding (ICD-10 - K57.30) 02/06/2024 Other hemorrhoids (ICD-10 - K64.8) PLAN OF TREATMENT No Information
--- OUTSIDE RECORDS SUMMARY | 2024-12-19 11:25 | XMS_ITS | Encounter Summary ---
Author Organization [facility] Address [address] [place] [address] Phone Care Team Providers Care Police Clerk Name Role Phone Keely Wilburn MD Primary Care Provider + [phone] Encounter Details Date Type Department Care Team (Late Contact Info) Description 09/02/2024 Documentation Only [facility] [address] [place] [address] Jaz Jane [place] [address] [place] [phone] Social History Tobacco Use Types Packs/Day Years [...] Encounters Date Type Department Care Team (Late Contact Info) Description 03/16/2025 3:00 PM EDT Office Visit [facility] [address] [place] [address] Terrance Garcia MD [address] [facility] [place] [address] documented as of this encounter Visit Diagnoses Not on filedocumented in this encounter Care Teams Police Clerk Relationship Specialty Start Date End Date Keely Wilburn MD [address] [place] [address] PCP - General Internal Medicine 02/11/20 documented as of this encounter
--- OUTSIDE RECORDS SUMMARY | 2024-12-19 11:25 | XMS_ITS | Encounter Summary ---
Author Organization [facility] Address [address] [place] [address] Phone Care Team Providers Care Sole Seamer Name Role Phone Keely Wilburn MD Primary Care Provider + [phone] Encounter Details Date Type Department Care Team (Late Contact Info) Description 08/05/2024 Documentation Only [facility] [address] [place] [address] [place] [address] [place] [phone] Social History Tobacco Use Types Packs/Day Years [...] Visit [facility] [address] [place] [address] Terrance Garcia MD [address] [facility] [place] [address] documented as of this encounter Visit Diagnoses Not on filedocumented in this encounter Care Teams Sole Seamer Relationship Specialty Start Date End Date Keely Wilburn MD [address] [place] [address] PCP - General Internal Medicine 02/11/20 documented as of this encounter
--- OUTSIDE RECORDS SUMMARY | 2024-12-19 11:25 | XMS_ITS | Encounter Summary ---
Author Organization [facility] Address [address] [place] [address] Phone Care Team Providers Care Combination Machine Tool Setter Name Role Phone Keely Wilburn MD Primary Care Provider + [phone] Encounter Details Date Type Department Care Team (Late Contact Info) Description 03/18/2024 Documentation Only [facility] [address] [place] [address] Juju Avila [address] [place] [phone] Social History Tobacco Use Types Packs/Day Years [...] Visit [facility] [address] [place] [address] Terrance Garcia MD [address] [place] [address] [place] [address] documented as of this encounter Visit Diagnoses Not on filedocumented in this encounter Care Teams Combination Machine Tool Setter Relationship Specialty Start Date End Date Keely Wilburn MD [address] [place] [address] PCP - General Internal Medicine 02/11/20 documented as of this encounter
--- OUTSIDE RECORDS SUMMARY | 2024-12-19 11:25 | XMS_ITS | Encounter Summary ---
Author Organization [facility] Address [address] [place] [address] Phone Care Team Providers Care Consultant Rn Name Role Phone Keely Wilburn MD Primary Care Provider + [phone] Encounter Details Date Type Department Care Team (Late Contact Info) Description 03/18/2024 Documentation Only [facility] [address] [place] [address] Juju Avila [address] [place] [phone] Social History Tobacco Use Types Packs/Day Years [...] Visit [facility] [address] [place] [address] Terrance Garcia MD [address] [place] [address] [place] [address] documented as of this encounter Visit Diagnoses Not on filedocumented in this encounter Care Teams Consultant Rn Relationship Specialty Start Date End Date Keely Wilburn MD [address] [place] [address] PCP - General Internal Medicine 02/11/20 documented as of this encounter
--- OUTSIDE RECORDS SUMMARY | 2024-12-19 11:25 | XMS_ITS | Encounter Summary ---
Author Organization [facility] Address [address] [place] [address] Phone Care Team Providers Care Security Rover Name Role Phone Keely Wilburn MD Primary Care Provider + [phone] Encounter Details Date Type Department Care Team (Late Contact Info) Description 03/18/2024 Documentation Only [facility] [address] [place] [address] Juju Avila [address] [place] [phone] Social History Tobacco Use Types Packs/Day Years [...] Visit [facility] [address] [place] [address] Terrance Garcia MD [address] [place] [address] [place] [address] documented as of this encounter Visit Diagnoses Not on filedocumented in this encounter Care Teams Security Rover Relationship Specialty Start Date End Date Keely Wilburn MD [address] [place] [address] PCP - General Internal Medicine 02/11/20 documented as of this encounter
--- OUTSIDE RECORDS SUMMARY | 2024-12-19 11:25 | XMS_ITS | Encounter Summary ---
Author Organization [facility] Address [address] [facility] 7t [place] [address] Care Team Providers Care Linux System Administrator Name Role Phone Keely Wilburn MD Primary Care Provider + Encounter Details Date Type Department Care Team (Late Contact Info) Description 01/17/2023 Abstract [facility] [address] [place] [address] Keely Wilburn MD [address] [place], [place] [phone] Social History Tobacco Use Types Packs/Day Years [...] AM EDT documented as of this encounter Plan of Treatment Upcoming Encounters Date Type Department Care Team (Late Contact Info) Description 01/15/2025 10:30 AM EST Office Visit [facility] [address] [place], [place] [phone] Keely Wilburn MD [address] [place] [address] documented as of this encounter Visit Diagnoses Not on filedocumented in this encounter Care Teams Linux System Administrator Relationship Specialty Start Date End Date Keely Wilburn MD [address] [place] [address] PCP - General Family Medicine 10/27/19 [employer] 08/06/24 documented as of this encounter
--- OUTSIDE RECORDS SUMMARY | 2024-12-19 11:26 | XMS_ITS | Encounter Summary ---
Author Organization [employer] Address [address] [facility] 7t [place] [address] Care Team Providers Care Digital Imaging Technician Name Role Phone Keely Wilburn MD Primary Care Provider + Reason for Visit * Reason Comments Transition Of Care (Tcm) HDF scheduled a nd SDOH screening negative and Tobacco screening negative Encounter Details Date Type Department Care Team (Late st Contact Info) Description 12/08/2024 Patient Outreach [facility] [address] [place], [place] [phone] Keely Wilburn MD [address] [place], [place] [phone] Transition Of Care (Tcm) (HDF scheduled and SDOH screening negative and Tobacco screening negative) Social History Tobacco Use Types Packs/Day Years Used Date Smoking Tobacco: Never Smokeless Tobacco: Never Alcohol Use Standard Drinks/Week Comments Never 0 (1 standard drink = 0.6 oz pur e alcohol) Housing Stability Answer Date Recorded What is your housing situation today? I have bryanna sing 12/08/[address] you li ve. Do you have problems with any of the following? None of the above 12/08/2024 Food Insecurity Answer Date Recorded Within the past 12 months, y ou worried that your food would run out before you got money to buy more: Never True 12/08/2024 Within the past 12 months,th e food you bought just didn't last and you didn't have enough money to get more: Never True Transportation Answer Date Recorded In the past 12 months, has l ack of transportation kept you from medical appts, meetings, work or from getting things needed for daily living? No 12/08/2024 Utilities Answer Date Recorded In the past 12 months, has t he electric, gas, oil or water company threatened to shut off services in your home? No 12/08/2024 Depression Answer Date Recorded Patient Health Questionnaire-2 Score 0 11/16/2022 Internet Access Answer Date Recorded Internet Access Q1 Yes 12/08/2024 Internet Access Q2 Not on file 12/08/2024 Comments Unknown Sex and Gender Information Value Date Recorded Sex Assigned at Female 09/11/2022 10:14 AM EDT Legal Sex Female 10:14 AM EDT Gender Identity Choose not to disclose 10:14 AM EDT Sexual Orientation Choose not to disclose 2021 10:14 AM EDT documented as of this encounter Miscellaneous Notes * Significant Event - Guy Sotomayor - 12/08/2024 1:35 PM EST 12/08/24 1328 Hospital Discharges and Admission for [facility] Type of Visit Hospital Admission Date of Admission/Visit 12/02/24 Date of Discharge 12/05/24 Facility [facility] Diagnosis Diarrhea, Vomiting, Abdominal Pain, Chest Pain, Dizziness Disposition Discharged with Home Care Services Follow-Up Actions Follow-Up Needed Provider appointment Follow-Up Outcome Spoke to Caregiver;Booked Appointment Initial Contact Date 12/08/24 ALVARO Yancey placed outbound call to patient for HDF outreach. Patient's name and were confirmedby lisa Goldberg. Patient daughter educated on the importance of follow up with provider following inpatient admission. Patient daughter offered an HDF appt. Patient daughter is agreeable to an appointment and has been scheduled for 12/18/2024 at 10:45am with PCP Dr. Wilburn. Insurance verified prior to scheduling. Patient daughter advised to bring to appointment a photo id and insurance card. Patient daughter provided with education on contacting the Health Center with any questions or concerns prior to the scheduled appointment. Patient educated on extended clinic hours on Mondays and Wednesdays, and Walk-In Urgent Care Located in [facility]. Patient daughter provided with after-hours line for [facility], , which offer night time triage service and option to transfer to publications sales representative provider if needed. CC scanned discharge summary into patient's chart. Biggest concern for appointment at this time is blood pressure machine is not working. Appropriate screenings completed in anticipation of appointment. documented in this encounter Plan of Treatment Upcoming Encounters Date Type Department Care Team (Late st Contact Info) Description 01/15/2025 10:30 AM EST Office Visit [facility] [address] [place] [address] Keely Wilburn MD [address] [place] [address] [phone] documented as of this encounter Visit Diagnoses Not on filedocumented in this encounter Care Teams Digital Imaging Technician Relationship Specialty Start Date End Date Keely Wilburn MD [address] [place] [address] [phone] PCP - General Family Medicine 10/27/19 [employer] 08/06/24 documented as of this encounter
--- OUTSIDE RECORDS SUMMARY | 2024-12-19 11:26 | XMS_ITS | Encounter Summary ---
Author Organization [employer] Address [address] 7t [place] [address] Care Team Providers Care Recapper Name Role Phone Keely Wilburn MD Primary Care Provider + Reason for Visit * Reason Onset Date Comments Chart prep 12/17/2024 Encounter Details Date Type Department Care Team ([facility] st Contact Info) Description 12/17/2024 Telephone [facility] [address] [place], [place] [phone] Keely Wilburn MD [address] [place] [address] Chart prep Social History Tobacco Use Types Packs/Day Years Used Date Smoking Tobacco: Never Smokeless Tobacco: Never Alcohol Use Standard Drinks/Week Comments Never 0 (1 standard drink = 0.6 oz pur e alcohol) Housing Stability Answer Date Recorded What is your housing situation today? I have bryanna gil 12/08/[address] you li [...] encounter Miscellaneous Notes * Telephone Encounter - Monique Alaniz [place] - 12/17/2024 11:36 AM EST Chart Prep Labs: not done Images: done Vaccines due: yes Referrals: pending appt Screenings: eye exam , Foot Exam Overdue care gaps: Glucose documented in this encounter Plan of Treatment Upcoming Encounters Date Type Department Care Team (Late st Contact Info) Description 01/15/2025 10:30 AM EST Office Visit [facility] [address] [place] [address] Keely Wilburn MD [address] [place] [address] documented as of this encounter Visit Diagnoses Not on filedocumented in this encounter Care Teams Recapper Relationship Specialty Start Date End Date Keely Wilburn MD [address] [place] [address] PCP - General Family Medicine 10/27/19 [employer] 08/06/24 documented as of this encounter
--- OUTSIDE RECORDS SUMMARY | 2024-12-19 11:26 | XMS_ITS | Encounter Summary ---
Author Organization [facility] Address [address] [facility] 7t [place] [address] Care Team Providers Care Sawdust Drier Name Role Phone Keely Wilburn MD Primary Care Provider + Encounter Details Date Type Department Care Team (Late Contact Info) Description 07/10/2023 Telephone [facility] [address] [place] [address] [phone] Katty Gutierrez LPN Social History Tobacco Use Types Packs/Day Years [...] Description 01/15/2025 10:30 AM EST Office Visit [facility] [address] [place] [address] [phone] Keely Wilburn MD [address] [place] [address] documented as of this encounter Visit Diagnoses Not on filedocumented in this encounter Care Teams Sawdust Drier Relationship Specialty Start Date End Date Keely Wilburn MD [address] [place] [address] PCP - General Family Medicine 10/27/19 [employer] 08/06/24 documented as of this encounter
--- OUTSIDE RECORDS SUMMARY | 2024-12-19 11:26 | XMS_ITS | Encounter Summary ---
Author Organization [employer] Address [address] [facility] [address] 7t [place] [address] Care Team Providers Care Health Nurse Name Role Phone Keely Wilburn MD Primary Care Provider + Reason for Visit * Reason Comments Med Change Request Encounter Details Date Type Department Care Team ([facility] st Contact Info) Description 11/09/2023 Refill [facility] [address] [place], [place] [phone] Kaci Le, [address] [place] [address] Type 2 diabetes mellitus with other specified complication, unspecified whether mcc insulin use (CMS/[facility]) Social History Tobacco Use Types Packs/Day Years Used Date Smoking Tobacco: Never Smokeless Tobacco: Never Alcohol Use Standard Drinks/Week Comments Never 0 (1 standard drink = 0.6 oz pur e alcohol) Housing Stability Answer Date Recorded What is your housing situation today? I have bryanna gil 08/29/[address] you li ve. Do you have problems with any of the following? None of the above 08/29/2023 Food Insecurity Answer Date Recorded Within the past 12 months, y ou worried that your food would run out before you got money to buy more: Never True 08/29/2023 Within the past 12 months,th e food you bought just didn't last and you didn't have enough money to get more: Never True Transportation Answer Date Recorded In the past 12 months, has l ack of transportation kept you from medical appts, meetings, work or from getting things needed for daily living? No 08/29/2023 Utilities Answer Date Recorded In the past 12 months, has t he electric, gas, oil or water company threatened to shut off services in your home? No 08/29/2023 Depression Answer Date Recorded Patient Health Questionnaire-2 [...] Description 01/15/2025 10:30 AM EST Office Visit [facility] [address] [place] [address] Keely Wilburn MD [address] [place] [address] documented as of this encounter Visit Diagnoses Diagnosis Type 2 diabetes mellitus with other specified complication, unspecified whether intermediate accountant insulin use ([facility]) documented in this encounter Care Teams Health Nurse Relationship Specialty Start Date End Date Keely Wilburn MD [address] [place] [address] PCP - General Family Medicine 10/27/19 [employer] 08/06/24 documented as of this encounter
--- OUTSIDE RECORDS SUMMARY | 2024-12-19 11:26 | XMS_ITS | Encounter Summary ---
Author Organization [employer] Address [address] [place] [address] Care Team Providers Care Strike Planning Applications Name Role Phone Keely Wilburn MD Primary Care Provider + Reason for Visit * Reason Onset Date Comments Referral 12/08/2024 order 12/08/2024 Encounter Details Date Type Department Care Team (Late st Contact Info) Description 12/08/2024 Telephone [facility] [address] [place], [place] [phone] Keely Wilburn MD [address] [place], [place] [phone] Referral; order Social History Tobacco Use Types Packs/Day Years [...] encounter Miscellaneous Notes * Telephone Encounter - Deanna Mathias - 12/08/2024 1:28 PM EST Tc from pt daughter requesting referral for physical therapy. States it's for ICS at home. No more info provided. Any questions contact Ashlyn Cypriot documented in this encounter Plan of Treatment Upcoming Encounters Date Type Department Care Team (Late st Contact Info) Description 01/15/2025 10:30 AM EST Office Visit [facility] [address] [place] [address] Keely Wilburn MD [address] [place] [address] documented as of this encounter Visit Diagnoses Not on filedocumented in this encounter Care Teams Strike Planning Applications Relationship Specialty Start Date End Date Keely Wilburn MD [address] [place] [address] PCP - General Family Medicine 10/27/19 [employer] 08/06/24 documented as of this encounter
--- OUTSIDE RECORDS SUMMARY | 2024-12-19 11:26 | XMS_ITS | Encounter Summary ---
Author Organization [employer] Address [address] [place] [address] Care Team Providers Care Tank Pumper Name Role Phone Keely Wilburn MD Primary Care Provider + Encounter Details Date Type Department Care Team (Late st Contact Info) Description 05/07/2024 Telephone [facility] MED[facility]INE [address] [place], [place] [phone] Keely Wilburn MD [address] [place], [place] [phone] Social History Tobacco Use Types Packs/Day Years [...] encounter Miscellaneous Notes * Telephone Encounter - Analy Scherer - 05/07/2024 1:29 PM EDT Tc From Basilio hidalgo requesting Face to face referral Med list last office visit . Best contact # if there is any questions [phone] documented in this encounter Plan of Treatment Upcoming Encounters Date Type Department Care Team (Late st Contact Info) Description 01/15/2025 10:30 AM EST Office Visit [facility] [address] [place] [phone] Keely Wilburn MD [address] [place] [phone] documented as of this encounter Visit Diagnoses Not on filedocumented in this encounter Care Teams Tank Pumper Relationship Specialty Start Date End Date Keely Wilburn MD [address] [place] [phone] PCP - General Family Medicine 10/27/19 [employer] 08/06/24 documented as of this encounter
--- OUTSIDE RECORDS SUMMARY | 2024-12-19 11:26 | XMS_ITS | Encounter Summary ---
Author Organization [employer] Address [address] [facility] [address] [place] [address] Care Team Providers Care Driver Messenger Name Role Phone Keely Wilburn MD Primary Care Provider + Reason for Visit * Reason Onset Date Comments ORder 12/05/2024 Encounter Details Date Type Department Care Team ([facility] st Contact Info) Description 12/05/2024 Telephone [facility] MED[facility]INE [address] [place], [place] [phone] Keely Wilburn MD [address] [place], [place] [phone] ORder Social History Tobacco Use Types Packs/Day Years [...] encounter Miscellaneous Notes * Telephone Encounter - Corina Link RN - 12/05/2024 11:29 AM EST TC placed to Ivon [phone] to provide verbal orders for PT. Ivon verbalized understanding. Ivon to f/u PRN. * Telephone Encounter - Huey Puentes - 12/05/2024 11:19 AM EST TC from Ivon with [facility] Requesting PCP to Sign Home care orders for Home Physical therapy. IF any questions contact Ivon at [phone] Option 2 documented in this encounter Plan of Treatment Upcoming Encounters Date Type Department Care Team (Late st Contact Info) Description 01/15/2025 10:30 AM EST Office Visit [facility] [address] [place] [address] Keely Wilburn MD [address] [place] [address] documented as of this encounter Visit Diagnoses Not on filedocumented in this encounter Care Teams Driver Messenger Relationship Specialty Start Date End Date Keely Wilburn MD [address] [place] [address] PCP - General Family Medicine 10/27/19 [employer] 08/06/24 documented as of this encounter
--- OUTSIDE RECORDS SUMMARY | 2024-12-19 11:26 | XMS_ITS | Clinical Summary ---
Author Organization [address] [place] [address] Address [address] [place] [address] Phone Care Team Providers Care Stained Glass Window Designer Name Role Phone Keely Wilburn MD Primary Care Provider [phone] Allergies Active Allergy Reactions Criticality Noted Date Comments Penicillins Rash 02/21/2017 Medications Medication Sig Dispensed Refills Start Date End Date Status acetaminophen (TYLENOL) 500 mg tablet TAKE 1 TABLET BY ORAL ROUTE EVERY6 8 HOURS NEEDED NOT TO EXCEED 4 TABLETS PER 24HRS 03/26/2021 Active albuterol sulfate (ProAir RespiClick) 90 mcg/actuation aerosol powdr breath activated Inhale by mouth. Ac tive amLODIPine (NORVASC) 10 mg tablet Take 1 tablet (10 mg total) by mouth 1 (one) time each day. Active pen needle,diabetic dual safty 30 gauge x 3/16 needle 2 (two) times a day. 06/29/2021 Acti ve benazepril-hydroch lorthiazide (LOTENSIN HCT) 20-12.5 mg per tablet Take 1 tablet by mouth 1 (one) time each day. 03/28/2021 Active calcium carbonate-vitamin D3 600 mg-10 mcg (400 unit) chewable tablet Chew 1 tablet 2 (two) times a day. 03/30/2022 Active calcium carbonate-vitamin D 600 mg-10 mcg (400 unit) per tablet Take 1 tablet by mouth 2 (two) times a day. 07/12/2018 Active diclofenac (VOLTAREN) 1 % topical gel APPLY 2 GRAMS TOPICALLY TWICE A DAY NEEDED FOR PAIN 04/24/2021 Active docusate sodium (COLACE) 100 mg capsule Take 1 Cap by mouth 2 times daily as needed for Constipation. 07/12/2018 Active doxycycline (VIBRAMYCIN) 100 mg capsule Take 1 capsule (100 mg total) by mouth 2 (two) times a day. 06/28/2021 Active gabapentin (NEURONTIN) 100 mg capsule Take 2 capsules (200 mg total) by mouth 3 (three) times a day. Active glipiZIDE (GLUCOTROL XL) 2.5 mg 24 hr tablet Take 4 tablets (10 mg total) by mouth 2 (two) times a day. Active insulin glargine (Lantus Solostar U-100 Insulin) 100 unit/mL (3 mL) injection pen INJECT 18 UNITS INTO THE SKIN EVERY DAY 04/14/2021 Active irbesartan-hydroCH LOROthiazide (AVALIDE) 300-12.5 mg per tablet Take 1 tablet by mouth 1 (one) time each day. Active ketorolac (ACULAR) 0.5 % ophthalmic solution INSTILL 1 DROP INTO BOTH EYES TWICE A DAY STARTING 2 DAYS PRIOR TO SURGERY 08/01/2021 Active linagliptin-metfor min 2.5-500 mg tablet Take by mouth 1 (one) time each day. 11/26/2018 Active lisinopriL (PRINIVIL,ZESTRIL) 20 mg tablet Take 2 Tabs by mouth every morning. 07/12/2018 Active loperamide (IMODIUM) 2 mg capsule Take 1 capsule (2 mg total) by mouth 4 (four) times a day if needed. Active omeprazole (PriLOSEC) [address] capsule Take 1 Cap by mouth daily for 360 days. 05/22/2018 Active omeprazole (PriLOSEC) [address] capsule 10/17/2021 Active DIABETIC SUPPLIES, [place]. [facility] ONE TOUCH BASIC STRIPS Active lancets lancets ONETOUCH LANCETS Act bennett OneTouch Ultra Test test strip USE 4 TIMES A DAY 07/18/2021 Ac tive rosuvastatin (CRESTOR) 10 mg tablet Take 1 tablet (10 mg total) by mouth at bedtime. 07/12/2018 Active senna (SENOKOT) 8.6 mg tablet Take 1 tablet (8.6 mg total) by mouth 1 (one) time each day. Active sertraline (ZOLOFT) 100 mg tablet Take 2 tablets (200 mg total) by mouth 1 (one) time each day. 07/21/2021 Active sertraline (ZOLOFT) 50 mg tablet TAKE 1 TABLET BY MOUTH EVERY DAY IN THE MORNING 02/10/2022 Active budesonide-formote roL (Symbicort) 160-4.5 mcg/actuation inhaler Inhale 2 puffs by mouth 2 (two) times a day. 03/27/2021 Active timolol (TIMOPTIC) 0.5 % ophthalmic solution 09/13/2021 Active dulaglutide (Trulicity) 0.75 mg/0.5 mL pen injector injection INJECT 1 PEN SUBCUTANEOUS ONCE A WEEK 05/06/2021 Active cyanocobalamin (VITAMIN B-12) 100 mcg tablet Take 1 Tab by mouth every morning. 07/12/2018 Active ammonium lactate (AmLactin) 12 % lotion Apply topically if needed for dry skin. 400 g 2 11/25/2024 11/25/2025 Active ketoconazole (NIZORAL) 2 % cream Apply topically 1 (one) time each day. 60 g 2 11/25/2024 Active Active Problems Problem Noted Date Diagnosed Date Anemia 10/03/2024 Asthma 10/03/2024 Diabetes mellitus type 2, uncomplicated 10/03/20 24 Hypertension 10/03/2024 Closed fracture of lower end of humerus 08/11/20 10 Overview (10/03/2024): IMO update Encounters Date Type Department Care Team Description 11/25/2024 9:00 AM EST Consult Orthopedic Surgery - [address] [phone] Cr Bolton DPM Controlled type 2 diabetes with neuropathy (CMS/HCC) (Primary Dx); Arthritis of both feet; PVD (peripheral vascular disease) (CMS/HCC); Xerosis cutis; Tinea pedis of both feet; Dermatophytosis, nail from Last 3 Months Surgical History Surgery Date Site/Laterality Comments OTHER SURGICAL HISTORY PROCEDURE: DENIES PREVIOUS SURGERY OTHER SURGICAL HISTORY PROCEDURE: NM LIG/TRNSXJ FLP TUBE ABDL/VAG APPR UNI/BI Medical History Medical History Date Comments Asthma DX:Asthma High blood pressure DX:High bloo d pressure Anemia DX:Anemia Anxiety state DX:Anxiety state Hypertension DX:Hypertension Hypertension DX:Hypertension Diabetes mellitus type 2, un complicated (CMS/HCC) DX:Diabetes mellitus type 2, uncomplicated (HCC) Esophageal reflux DX:Esophageal reflux Hyperlipidemia DX:Hyperlipidemi a Social History Tobacco Use Types Packs/Day Years Used Date Smoking Tobacco: Never Smokeless Tobacco: Never Tobacco Cessation:Counseling Given: Not Answered Alcohol Use Standard Drinks/Week Comments No 0 (1 standard drink = 0.6 oz pur e alcohol) Sex and Gender Information Value Date Recorded Sex Assigned at Not on file Gender Identity Not on file Sexual Orientation Not on file Job Start Date Occupation Industry Not on file Not on file Not on file Obstetrics History Last Filed Vital Signs Vital Sign Reading Time Taken Comments Blood Pressure 140/73 02/03/2022 8:42 AM EDT Sit ting R Arm Pulse 76 02/03/2022 8:42 AM EDT Temperature - - Respiratory Rate - - Oxygen Saturation - - Inhaled Oxygen Concentration - - Weight 86.2 kg (190 lb) 11/25/2024 8:57 AM EST Height 152.4 cm (5') 11/25/2024 8:57 AM EST Body Mass Index 37.11 11/25/2024 8:57 AM EST Plan of Treatment Upcoming Encounters Date Type Department Care Team (Late st Contact Info) Description 12/23/2024 9:00 AM EST Office Visit Orthopedic Surgery [facility] [address] [facility] [address] [place] [phone] Eloisa Chaudhari PA [address] [facility] [address] [place] [address] 01/27/2025 9:15 AM EDT Office Visit Orthopedic Surgery [facility] 250 [address] [facility] [address] [place] [phone] Cr Bolton DPM [address] [facility] [address] [place] [address] Health Maintenance Due Date Last Done Comments Diabetes: Annual Foot Exam 1960 Diabetes: Annual Retina Eye Exam 1960 Hepatitis B Vaccines (3 of 3 - 19+ 3-dose series) 10/17/2017 05/21/2017, 04/17/2017 Cholesterol Screening (Lipid Panel) 10/15/2022 Depression Screening 10/15/2022 Falls Risk Assessment 10/15/2022 Medicare Annual Wellness Visit 10/15/2022 Osteoporosis Screening (Bone Density Screening) 10/15/2022 Social Influencers of Health Screening 10/15/2022 Diabetes: Annual Urine Albumin-Creatinine Ratio (uACR) 10/27/2022 RSV Immunization Patients 60+ Years Old (1 - 1-dose 75+ series) 2023 Diabetes: Annual GFR (Glomerular Filtration Rate) 03/24/2023 03/24/2022 Hypertension/CHF/CAD Annual BMP Blood Test 03/24/2023 03/24/2022 COVID-19 Vaccine ( season) 2024 03/29/2022, 09/20/2021, 08/19/2021 Diabetes: Blood Sugar Control Test (HGBA1C) 04/14/2025 10/14/2024, 09/28/2022, 07/12/2018 DTaP,Tdap,and Td Vaccines (5 - Td or Tdap) 06/07/2032 06/07/2022, 04/17/2017, 06/09/2009, Additional history exists MMR Vaccines Aged Out 05/18/1998 No longer eligi ble based on patient's age to complete this topic Colorectal Cancer Screening: Colonoscopy Discontinued 09/12/2018 Pneumococcal Vaccine: 65+ Years Completed 05/31/2023, 08/17/2015, 07/04/2008, Additional history exists Zoster Vaccines Completed 05/31/2023, 11/15/2022 Hepatitis C Screening Completed 05/16/2024 Influenza Vaccine Completed 07/31/2024, , 11/18/2021, Additional history exists HIB Vaccines Aged Out No longer eligi ble based on patient's age to complete this topic HPV Vaccines Aged Out No longer eligi ble based on patient's age to complete this topic Hepatitis A Vaccines Aged Out No long er eligible based on patient's age to complete this topic IPV Vaccines Aged Out No longer eligi ble based on patient's age to complete this topic Meningococcal ACWY Vaccine Aged Out N o longer eligible based on patient's age to complete this topic RSV Immunization Patients Under 20 months Aged Out No longer eligible based on patient's age to complete this topic Varicella Vaccines Aged Out No longer eligible based on patient's age to complete this topic Procedures Procedure Name Priority Date/Time Associated Diagnosis Comments ANNUAL BMP BLOOD TEST Routine 03/24/2022 COLONOSCOPY Routine 09/12/2018 HEMOGLOBIN A1C Routine 07/12/2018 from Last 3 Months or Most Recently Relevant to Health Maintenance Results * Annual BMP Blood Test (03/24/2022) Annual BMP Blood Test abstracted Historical Provider MD BLAISE THORNTON E * Colonoscopy (09/12/2018) Colonoscopy no interpretation , abstracted Anatomical Region Laterality Modality Other Historical Provider MD BLAISE THORNTON E * (ABNORMAL) Hemoglobin A1c (07/12/2018) Hemoglobin A1C 6.5(A) 4.0 - 6.0 % Blood Venous blood specimen / Unknown Historical Provider LAB BLOOD ORDERAB LES from Last 3 Months or Most Recently Relevant to Health Maintenance Advance Directives Documents on File Type Date Recorded Patient Activities Concierge Expl anation Health Care Decision (hx) 04/22/2018 AD BECKWITH DIRECTIVE Health Care Decision (hx) 04/22/2018 AD BECKWITH DIRECTIVE Health Care Decision (hx) 04/22/2018 AD BECKWITH DIRECTIVE Health Care Decision (hx) 04/22/2018 AD BECKWITH DIRECTIVE Health Care Decision (hx) 04/22/2018 AD BECKWITH DIRECTIVE Health Care Decision (hx) 04/22/2018 AD BECKWITH DIRECTIVE Health Care Decision (hx) 04/22/2018 AD BECKWITH DIRECTIVE Health Care Decision (hx) 04/22/2018 AD BECKWITH DIRECTIVE Health Care Decision (hx) 04/22/2018 AD BECKWITH DIRECTIVE Health Care Decision (hx) 04/22/2018 AD BECKWITH DIRECTIVE Care Teams Stained Glass Window Designer Relationship Specialty Start Date End Date Keely Wilburn MD [address] [place] [phone] PCP - General 03/01/22
--- OUTSIDE RECORDS SUMMARY | 2024-12-19 11:26 | XMS_ITS | Encounter Summary ---
Author Organization [employer] Address [address] 7[address] [place] [address] Care Team Providers Care Lehr Attendant Name Role Phone Keely Wilburn MD Primary Care Provider + Reason for Visit * Reason Comments Med Refill Encounter Details Date Type Department Care Team (Late st Contact Info) Description 12/09/2023 Refill [facility] [address] [place], [place] [phone] Keely Wilburn MD [address] [place], [place] [phone] Osteopenia of neck of femur, unspecified laterality Social History Tobacco Use Types Packs/Day Years Used Date Smoking Tobacco: Never Smokeless Tobacco: Never Alcohol Use Standard Drinks/Week Comments Never 0 (1 standard drink = 0.6 oz pur e alcohol) Housing Stability Answer Date Recorded What is your housing situation today? I have bryannabeni gil 08/29/[address] you [...] Description 01/15/2025 10:30 AM EST Office Visit [facility] [address] [place] [phone] Keely Wilburn MD [address] [place] [phone] documented as of this encounter Visit Diagnoses Diagnosis Osteopenia of neck of femur, unspecified laterality documented in this encounter Care Teams Lehr Attendant Relationship Specialty Start Date End Date Keely Wilburn MD [address] [place] [phone] PCP - General Family Medicine 10/27/19 [employer] 08/06/24 documented as of this encounter
--- OUTSIDE RECORDS SUMMARY | 2024-12-19 11:26 | XMS_ITS | Encounter Summary ---
Author Organization [employer] Address [address] [place] [address] Care Team Providers Care Harpsichord Maker Name Role Phone Keely Wilburn MD Primary Care Provider + Encounter Details Date Type Department Care Team (Late st Contact Info) Description 12/19/2024 Orders Only [facility] External Provider, [facility] Social History Tobacco Use Types Packs/Day Years [...] Description 01/15/2025 10:30 AM EST Office Visit [facility] [address] [place] [address] Keely Wilburn MD [address] [place] [address] documented as of this encounter Procedures Procedure Name Priority Date/Time Associated Diagnosis Comments XR HAND WRIST RT Routine 12/19/2024 10:2 3 AM EST XR HAND WRIST LT Routine 12/19/2024 10:2 3 AM EST documented in this encounter Results * XR HAND WRIST LT (12/19/2024 10:23 AM EST) Anatomical Region Laterality Modality Abdomen Radiographic Marilyn ging 12/19/2024 10:2 3 AM EST Narrative 12/19/2024 11:09 AM EST ? [facility] ?[address] ?[place] [address] ?XRay Report ? Signed ? Patient: Landeros,Adrianne ?MR#: [id number] ? : 1950 ?Acct:[id number] ? Age/Sex: 74 / F ?ADM Date: 02/07/25 ? Loc: HO.XRAY ? Attending Dr: Donna Albert MD ? Ordering Physician: Donna Albert MD ?? Date of Service: 12/19/24 ?? Procedure(s): XR hand wrist LT ?? Accession Number(s): [id number] ? cc: Donna Albert MD; Keely Wilburn MD ? EXAMINATION: ??XR HAND AND WRIST COMPLETE LEFT ? HISTORY: M11.20 - Other chondrocalcinosis, unspecified site ? COMPARISON: Comparison is made with the prior examination dated ?? 10/19/2023. ? FINDINGS: ? Three views of the left hand are submitted. ??The bones are osteopenic. ? There is no fracture or dislocation. ??There is mild degenerative change ?? of the interphalangeal joint of the thumb with joint space narrowing ?? and osteophyte formation. The remaining joint spaces are preserved. ? The soft tissues are unremarkable. ? XR/XR hand wrist LT ?? IMPRESSION: ? 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 ? Electronically signed by: ??Rod Todd MD ??12/19/2024 11:07 AM EST ?? RP ? Dictated By: ?Rod Todd MD ? Signed By: ?<Electronically signed by Rod Todd MD in OV> ?12/19/24 1107 ? DD/ 1023 ? TD/TT: 12/19/24 1035 ? Paver Installer: ? Procedure Note Chrissy, Image - 12/19/2024 [place] [address] XRay Report Signed Patient: Adrianne LanderosMR#: [id number] : 8Acct:[id number] Age/Sex: 74 / FADM Date: 12/19/24 Loc: [facility] Attending Dr: Donna Albert MD Ordering Physician: Donna Albert MD Date of Service: 12/19/24 Procedure(s): XR hand wrist LT Accession Number(s): [id number] cc: Donna Albert MD; Keely Wilburn MD EXAMINATION: XR HAND AND WRIST COMPLETE LEFT HISTORY: M11.20 - Other chondrocalcinosis, unspecified site COMPARISON: Comparison is made with the prior examination dated 10/19/2023. FINDINGS: Three views of the left hand are submitted. The bones are osteopenic. There is no fracture or dislocation. There is mild degenerative change of the interphalangeal joint of the thumb with joint space narrowing and osteophyte formation. The remaining joint spaces are preserved. The soft tissues are unremarkable. 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 Electronically signed by: Rod Todd MD 12/19/2024 11:07 AM EST RP Dictated By: Rod Todd MD Signed By: <Electronically signed by Rod oTdd MD in OV> 12/19/24 1107 DD/ 1023 TD/TT: 12/19/24 1035 Paver Installer: [facility] External Provider IMG XR PROCEDURES Final Result * XR HAND WRIST RT (12/19/2024 10:23 AM EST) Anatomical Region Laterality Modality Abdomen Radiographic Marilyn ging 12/19/2024 10:2 3 AM EST Narrative 12/19/2024 10:56 AM EST ? [facility] ?[address] ?[place] [address] ?XRay Report ? Signed ? Patient: Adrianne Landeros ?MR#: [id number] ? : 1950 ?Acct:[id number] ? Age/Sex: 74 / F ?ADM Date: 12/19/24 ? Loc: HO.XRAY ? Attending Dr: Donna Albert MD ? Ordering Physician: Donna Albert MD ?? Date of Service: 12/19/24 ?? Procedure(s): XR hand wrist RT ?? Accession Number(s): [id number] ? cc: Donna Albert MD; Keely Wilburn MD ? EXAMINATION: ?? XR HAND/WRIST, RIGHT ? CLINICAL INFORMATION: ?? M11.20 - Other chondrocalcinosis, unspecified site ? COMPARISON: ?? October 19, 2023. ? TECHNIQUE: ?? PA, lateral, and oblique views of the right hand and wrist. ? FINDINGS: ?? No acute cortical disruption or malalignment. No lytic or blastic ?? lesions. Osteopenia versus osteoporosis. No gross bony erosions. No ?? metallic or radiopaque foreign body. No subcutaneous emphysema. ? XR/XR hand wrist RT ?? IMPRESSION: ?? Osteopenia versus osteoporosis. ? Electronically signed by: ??Car Crowe MD ??12/19/2024 10:54 AM ?? EST RP ? Dictated By: ?Car Madden MD ? Signed By: ?<Electronically signed by Car Porras MD in OV> ? 12/19/24 1054 ? DD/ 1023 ? TD/TT: 12/19/24 1035 ? Paver Installer: ? Procedure Note Donotuseinterpreter, Image - 12/19/[address] [address] XRay Report Signed Patient: Adrianne LanderosMR#: [id number] : 8Acct:[id number] Age/Sex: 74 / FADM Date: 12/19/24 Loc: [facility] Attending Dr: Donna Albert MD Ordering Physician: Donna Albert MD Date of Service: 12/19/24 Procedure(s): XR hand wrist RT Accession Number(s): [id number] cc: Donna Albert MD; Keely Wilburn MD EXAMINATION: XR HAND/WRIST, RIGHT CLINICAL INFORMATION: M11.20 - Other chondrocalcinosis, unspecified site COMPARISON: October 19, 2023. TECHNIQUE: PA, lateral, and oblique views of the right hand and wrist. FINDINGS: No acute cortical disruption or malalignment. No lytic or blastic lesions. Osteopenia versus osteoporosis. No gross bony erosions. No metallic or radiopaque foreign body. No subcutaneous emphysema. XR/XR hand wrist RT IMPRESSION: Osteopenia versus osteoporosis. Electronically signed by: Car Crowe MD 12/19/2024 10:54 AM EST Dictated By: Car Madden MD Signed By: <Electronically signed by Car Porras MDin OV> 12/19/24 1054 DD/ 1023 TD/TT: 12/19/24 1035 Paver Installer: [facility] External Provider IMG XR PROCEDURES Final Result documented in this encounter Visit Diagnoses Not on filedocumented in this encounter Care Teams Harpsichord Maker Relationship Specialty Start Date End Date Keely Wilburn MD [address] [place] [phone] PCP - General Family Medicine 10/27/[address] (Work) 08/06/24 documented as of this encounter
--- OUTSIDE RECORDS SUMMARY | 2024-12-19 11:26 | XMS_ITS ---
Author Name Naveed ENRIKESherry Address [address] [place] [address] Phone [phone] [facility] Care Team Providers Care Learning Technologist Name Role Phone Sherry Lucio Unavailable [phone] Unavailable Unavailable Unavailable Reason for Referral Not Available Allergies, adverse reactions, alerts Allergen Type Reaction Severity Status Onset Date Penicillin Allergy to substance (disorder) Unknown Active N/A Aspirin Allergy to substance (disorder) Unknown Active N/A History of medication use Medication Class Instructions Start Date End Date Omeprazole 20 mg Cap delayed rel TAKE 1 TABLET ORALLY EVERY MORNING FOR 30 DAYS 2023-03-15 No Data Available Bisacodyl EC 5 mg Tab delayed rel No Data Available 2023-06-14 No Data Available GaviLAX 17 GM/SCOOP Powder No Data Available 3 No Data Available Gabapentin 100 mg Cap No Data Available 2023-01-10 2 Trulicity 3 mg/0.5ML Solution Pen-injector INJECT 1 PEN SUBCUTANEOUSLY EVERY WEEK 2023-01-31 2024-01-15 Timolol Maleate 0.5 % Solution INSTILL 1 DROP INTO BOTH EYES TWICE A DAY 2023-01-08 No Data Available Sertraline 50 mg Tab TAKE 2 TABLETS BY M OUTH EVERY DAY AT BEDTIME 2023-04-10 2024-01-15 Brimonidine Tartrate 0.2 % Solution INSTILL 1 DROP INTO RIGHT EYE TWICE A DAY 2023-01-08 2024-01-15 OneTouch Ultra Strip USE 1 TEST STRIP 3 TIMES DAILY 2023-04-18 No Data Available Rosuvastatin Calcium 20 mg Tab TAKE 1 TABLET BY MOUTH ONCE DAILY 2022-10-23 2024-01-15 Ketorolac Tromethamine 0.5 % Solution INSTILL 1 DROP IN EACH EYE TWICE A DAY FOR PAIN 2023-01-08 2024-01-15 Meclizine 25 mg Tab TAKE 1 TABLET BY KACY TH 3 TIMES A DAY NEEDED FOR DIZZINESS (MORNING, AFTERNOON, AND BEDTIME) 2023-08-08 No Data Available BD AUTOSHIELD DUO NDL [id number] USE WITH INSULIN TWICE DAILY 2022-09-05 No Data Meseret ilable Benazepril 20 mg Tab TAKE 1 TABLET (20 M G) BY MOUTH IN THE MORNING. DC BENAZEPRIL/HCTZ 2022-11-16 No Data Available Lantus SoloStar 100 UNIT/ML Solution Pen-injector INJECT 18 UNITS SUBCUTANEOUSLY ONCE DAILY 2023-05-31 No Data Available amLODIPine Besylate 10 mg Tab TAKE 1/2 TABLET BY MOUTH DAILY 2022-08-24 No Data Available Gnlstxbitb-DRBZ-Smyadipe 50/325/40 mg Tab TAKE 1 TABLET BY MOUTH EVERY 4 HOURS NEEDED FOR HEADACHE (NOT COVERED) 2023-09-08 No Data Available Albuterol Sulfate (2.5 mg/3ML) 0.083% Nebulization Solution Inhalation 3 ml via nebulizer every 4hours as needed for cough, congestion, SOB, wheezing 2023-09-19 No Data Available Diclofenac Sodium 1 % Gel APPLY 2 GRAMS TOPICALLY TO AFFECTED AREA(S) THREE TIMES DAILY 2023-09-19 No Data Available Durolane 60 mg/3ML Prefilled Syringe No Data Available 2023-10-08 No Data Available CALCIUM 500-VIT D3 10 MCG CHEW CHEW 1 TABLET BY MOUTH 2 TIMES DAILY. 2023-10-12 2024-01-15 Allopurinol 100 mg Tab TAKE 1 TABLET BY MOUTH ONCE DAILY 2023-10-26 No Data Available Trulicity 3 mg/0.5ML Solution Pen-injector INJECT 1 PEN SUBCUTANEOUSLY ONCE WEEKLY 2023-01-31 No Data Available CALCIUM 500-VIT D3 10 MCG CHEW CHEW 1 TABLET BY MOUTH 2 TIMES DAILY. 2023-12-12 No Data Available Diclofenac Sodium 1 % Gel APPLY 2 GRAMS TOPICALLY TWICE DAILY NEEDED FOR PAIN 2023-12-12 No Data Available Sertraline 50 mg Tab TAKE 2 TABLETS BY M OUTH EVERY DAY AT BEDTIME 2023-10-16 No Data Available BD AUTOSHIELD DUO NDL [id number] USE WITH INSULIN TWICE DAILY 2023-12-25 No Data Meseret ilable Brimonidine Tartrate 0.2 % Solution INSTILL 1 DROP INTO BOTH EYES TWICE A DAY 2023-09-06 No Data Available Gabapentin 100 mg Cap TAKE 2 CAPSULES BY MOUTH EVERY DAY AT BEDTIME 2023-01-10 No Data Available Ketorolac Tromethamine 0.5 % Solution INSTILL 1 DROP INTO BOTH EYES 4 TIMES DAILY FOR PAIN 2023-01-08 No Data Available Lidocaine 5 % Patch APPLY 1 PATCH IN THE MORNING REMOVE AND DISARD PATCH WITHIN 12 HOURS OR DIRECTED 2024-01-01 No Data Available OneTouch Ultra Strip USE 1 TEST STRIP 3 TIMES DAILY 2023-04-18 No Data Available Rosuvastatin Calcium 20 mg Tab TAKE 1 TABLET BY MOUTH ONCE DAILY 2023-10-15 No Data Available Azithromycin 250 mg Tab Take 2 tablets P O on day 1, then 1 tablet PO on days 2-5 2024-01-15 No Data Available Medrol 4 mg Tab Therapy Pack take as directed No Data Available Montelukast Sodium 10 mg Tab TAKE 1 TABL ET BY MOUTH EVERY DAY FOR ALLERGY SYMPTOMS 2024-01-15 No Data Available Pulmicort 1 mg/2ML Suspension Inhalation 2 ml orally via nebulizer 2 times per day 2024-01-15 No Data Available Ondansetron 8 mg Tab Disintegrating 1 tablet orally every 8 hours as needed nausea 2024-01-17 No Data Available Budesonide 1 mg/2ML Suspension Inhalation INHALE 1 VIAL VIA NEBULIZER TWICE A DAY 2024-01-20 No Data Available Problem List Problem Status Onset Date Resolved Date Osteopenia of multiple sites Active 2023-12-04 N/A HTN (hypertension) Active 2023-12-04 N/A Morbid obesity due to excess calories Active 02-12-04 N/A Benign paroxysmal positional vertigo due to bilateral vestibular disorder Active 2023-12-04 N/A Arthritis associated with diabetes Active - N/A Urinary incontinence Active 2023-12-16 N/A Major depressive disorder, recurrent, moderate Active 2023-12-16 N/A Rheumatoid factor positive Active 2023-12-16 N /A Hypercholesteremia Active 2023-12-04 N/A GERD (gastroesophageal reflux disease) Active 05-01-04 N/A Type 2 diabetes mellitus wit h stage 3b chronic kidney disease, with long-term current use of insulin, unspecified whether stage 3a or 3b CKD Active 2023-12-16 N /A Stage 3b chronic kidney dise ase due to diabetes mellitus Active 2023-12-16 N/A Vascular disease Active 2023-12-16 N/A Other problems related to ne dical facilities and other health care Active 2024-01-17 N/A Severe persistent asthma, un complicatedChronic bronchitis-Allergic bronchitis with acute exacerbation Active 2023-12-04 N/A COVID Active 2024-01-17 N/A Other problems related to ne dical facilities and other health care Active 2024-01-22 N/A Encounters Encounters Type Facility Date of Service Diagnosis/Co mplaint New patient,40-59min; chronic exacerbation, 2 stable chronic or 1 acute illness add add modifier 95 for video (do not use for phone, instead use [id number]) [facility] Severe persistent asthma, uncomplicatedBenign paroxysmal vertigo, bilateralOth disrd of bone density and structure, multiple sitesHypertensive chronic kidney disease w stg 1-4/unsp chr kdnyPure hypercholesterolemia, unspecifiedType 2 diabetes mellitus with other diabetic arthropathyType 2 diabetes mellitus with diabetic chronic kidney diseaseChronic kidney disease, stage 3 unspecifiedLong term (current) use of insulinMorbid (severe) obesity due to excess caloriesOther disorder of circulatory systemUnspecified urinary incontinenceMajor depressive disorder, recurrent, moderateOther specified abnormal immunological findings in serumGastro-esophageal reflux disease without esophagitis New patient,40-59min; chronic exacerbation, 2 stable chronic or 1 acute illness add add modifier 95 for video (do not use for phone, instead use [id number]) [facility] New patient,40-59min; chronic exacerbation, 2 stable chronic or 1 acute illness add add modifier 95 for video (do not use for phone, instead use [id number]) [facility] New patient,40-59min; chronic exacerbation, 2 stable chronic or 1 acute illness add add modifier 95 for video (do not use for phone, instead use [id number]) [facility] New patient,40-59min; chronic exacerbation, 2 stable chronic or 1 acute illness add add modifier 95 for video (do not use for phone, instead use [id number]) [facility]2023 New patient,40-59min; chronic exacerbation, 2 stable chronic or 1 acute illness add add modifier 95 for video (do not use for phone, instead use [id number]) [facility] New patient,40-59min; chronic exacerbation, 2 stable chronic or 1 acute illness add add modifier 95 for video (do not use for phone, instead use [id number]) [facility] New patient,40-59min; chronic exacerbation, 2 stable chronic or 1 acute illness add add modifier 95 for video (do not use for phone, instead use [id number]) [facility] New patient,40-59min; chronic exacerbation, 2 stable chronic or 1 acute illness add add modifier 95 for video (do not use for phone, instead use [id number]) [facility] New patient,40-59min; chronic exacerbation, 2 stable chronic or 1 acute illness add add modifier 95 for video (do not use for phone, instead use [id number]) [facility]2023 No Data Available [facility]2024 Severe persistent asthma, uncomplicatedUnspecified chronic bronchitis No Data Available [facility] 01/[place]/2024 No Data Available [facility] [place]17/2024 Severe persistent asthma, uncomplicatedUnspecified chronic bronchitisBenign paroxysmal vertigo, bilateralOth disrd of bone density and structure, multiple sitesEssential (primary) hypertensionPure hypercholesterolemia, unspecifiedType 2 diabetes mellitus with other diabetic arthropathyType 2 diabetes mellitus with diabetic chronic kidney diseaseLong term (current) use of insulinChronic kidney disease, stage 3bMorbid (severe) obesity due to excess caloriesType 2 diabetes w diabetic peripheral angiopath w/o gangreneUnspecified urinary incontinenceMajor depressive disorder, recurrent, moderateOther specified abnormal immunological findings in serumGastro-esophageal reflux disease without esophagitisCOVID-19Other problems related to medical facilities and other health care No Data Available [facility]17[place]2024 No Data Available [facility]/17/2024 No Data Available [facility]17/2024 No Data Available [facility]18/2024 Severe persistent asthma, uncomplicatedUnspecified chronic bronchitisUnspecified asthma with (acute) exacerbationBenign paroxysmal vertigo, bilateralOth disrd of bone density and structure, multiple sitesEssential (primary) hypertensionPure hypercholesterolemia, unspecifiedType 2 diabetes mellitus with other diabetic arthropathyType 2 diabetes mellitus with diabetic chronic kidney diseaseChronic kidney disease, stage 3aLong term (current) use of insulinMorbid (severe) obesity due to excess caloriesType 2 diabetes w diabetic peripheral angiopath w/o gangreneUnspecified urinary incontinenceMajor depressive disorder, recurrent, moderateOther specified abnormal immunological findings in serumGastro-esophageal reflux disease without esophagitisCOVID-19Other problems related to medical facilities and other health care No Data Available [facility]/18/2024 No Data Available [facility]/18/2024 No Data Available [facility] 01/18/2024 No Data Available [facility]/21/2024 Severe persistent asthma, uncomplicatedUnspecified chronic bronchitisUnspecified asthma with (acute) exacerbationBenign paroxysmal vertigo, bilateralOth disrd of bone density and structure, multiple sitesEssential (primary) hypertensionPure hypercholesterolemia, unspecifiedType 2 diabetes mellitus with other diabetic arthropathyType 2 diabetes mellitus with diabetic chronic kidney diseaseChronic kidney disease, stage 3 unspecifiedLong term (current) use of insulinMorbid (severe) obesity due to excess caloriesBody mass index (bmi) 34.0-34.9, adultPeripheral vascular disease, unspecifiedUnspecified urinary incontinenceMajor depressive disorder, recurrent, moderateOther specified abnormal immunological findings in serumGastro-esophageal reflux disease without esophagitisCOVID-19Other problems related to medical facilities and other health care No Data Available [facility] 01/[place]/2024 Vital Signs Date of Collection Vitals 2023-12-04 06:02:15 Height - 154.94 cmWe ight - 83.92 kgBody Mass Index (BMI) - 34.96 kg/m2BP Diastolic - 75.0 mm[Hg]BP Systolic - 122.0 mm[Hg]Pain Scale - 0.0 {score} 2024-01-18 06:20:04 BP Diastolic - 74.0 mm[Hg]BP Systolic - 132.0 mm[Hg]O2 % BldC Oximetry - 96.0 % 2024-01-21 06:26:06 Weight - 83.92 kgBod y Mass Index (BMI) - 34.96 kg/m2 Social History Social History Social History Observation Description Effec tive Time Current Smoking Status Never smoker 7 Sex Female History of Procedures Procedures Service Procedure code Service date Servicing provider Phone# New patient,40-59min; chronic exacerbation, 2 stable chronic or 1 acute illness add add modifier 95 for video (do not use for phone, instead use [id number]) 55594 2023-12-04 No Data Available No Data Availa ble Pain Assessment - NO pain present (1126F) 1126F 2023-12-04 No Data Available No Data A vailable Medication List Documented (1159F) 1159F 2023-12-04 No Data Available No Data Meseret ilable Medication Review by prescribing provider or pharmacist documented (1160F) 1160F 2023-12-04 No Data Available No Data Meseret ilable Advance Care Directive Advance care planning discussion documented in the medical record (1158F) 1158F 2023-12-04 No Data Available No Data Availa ble BMI obtained (3008F) 3008F 2023-12-04 No Data Availab le No Data Available Advance care planning discussed and documented ? advance care plan or surrogate decision-maker was documented in the medical record. (1123F) 1123F 2023-12-04 No Data Available No Data Availa ble SBP < 130 (3074F) 3074F 2023-12-04 No Data Available No Data Available DBP <80 (3078F) 3078F 2023-12-04 No Data Available No Data Available Functional Status Assessed (1170F) 1170F 2023-12-04 No Data Available No Data Avail able No Data Available 62000 2024-01-15 No Data Available No Data Available Medication List Documented (1159F) 1159F 2024-01-15 No Data Available No Data Meseret ilable No Data Available [id number] 2024-01-17 No Data Available No Data Available Medication List Documented (1159F) 1159F 2024-01-17 No Data Available No Data Meseret ilable Functional Status Assessed (1170F) 1170F 2024-01-17 No Data Available No Data Avail able Most recent A1c (HbA1c) or GMI level <7% (3044F) 3044F 2024-01-17 No Data Available No Data Availa ble No Data Available 28509 2024-01-18 No Data Available No Data Available SBP 130-139 (3075F) 3075F 2024-01-18 No Data Availabl e No Data Available DBP <80 (3078F) 3078F 2024-01-18 No Data Available No Data Available Functional Status Assessed (1170F) 1170F 2024-01-18 No Data Available No Data Avail able No Data Available 18185 2024-01-21 No Data Available No Data Available BMI obtained (3008F) 3008F 2024-01-21 No Data Availab le No Data Available Relevant diagnostic tests and/or laboratory data Laboratory Results Test Result Units Ref low Ref high Date Location Source Glucose Glucose 150 mg/dL 65 99 2023-12-04 No Data Available No Data Available Functional Status Functional Category Effective Dates LIVES WITH SON, WALK: WALKER, COOKING: S EL 2023-12-04 Mental Status No Information Assessments Date of Service Assessments 2023-12-04 06:02:15 Moderate persistent allergic asthmaBenign paroxysmal positional vertigo due to bilateral vestibular disorderOsteopenia of multiple sitesHTN (hypertension)HypercholesteremiaArthritis associated with diabetesType 2 diabetes mellitus with stage 3 chronic kidney disease, with long-term current use of insulin, unspecified whether stage 3a or 3b CKDMorbid obesity due to excess caloriesStage 3 chronic kidney disease due to diabetes mellitusVascular insufficiencyUrinary incontinenceMajor depressive disorder, recurrent, moderateRheumatoid factor positiveGERD (gastroesophageal reflux disease) 2024-01-15 07:59:20 Follow up plan for a cute symptoms:Severe persistent asthma, uncomplicatedChronic bronchitis-Allergic bronchitis with acute exacerbation 2024-01-17 09:49:12 Follow up plan for clarisse alvarez symptoms: ARUN follow up scheduled 01/18/24Severe persistent asthma, uncomplicatedChronic bronchitis-Allergic bronchitis with acute exacerbationBenign paroxysmal positional vertigo due to bilateral vestibular disorderOsteopenia of multiple sitesHTN (hypertension)HypercholesteremiaArthritis associated with diabetesType 2 diabetes mellitus with stage 3b chronic kidney disease, with long-term current use of insulin, unspecified whether stage 3a or 3b CKDMorbid obesity due to excess caloriesStage 3b chronic kidney disease due to diabetes mellitusVascular diseaseUrinary incontinenceMajor depressive disorder, recurrent, moderateRheumatoid factor positiveGERD (gastroesophageal reflux disease)COVIDOther problems related to medical facilities and other health care 2024-01-18 06:20:04 Severe persistent as thma, uncomplicatedChronic bronchitis-Allergic bronchitis with acute exacerbationBenign paroxysmal positional vertigo due to bilateral vestibular disorderOsteopenia of multiple sitesHTN (hypertension)HypercholesteremiaArthritis associated with diabetesType 2 diabetes mellitus with stage 3b chronic kidney disease, with long-term current use of insulin, unspecified whether stage 3a or 3b CKDMorbid obesity due to excess caloriesStage 3b chronic kidney disease due to diabetes mellitusVascular diseaseUrinary incontinenceMajor depressive disorder, recurrent, moderateRheumatoid factor positiveGERD (gastroesophageal reflux disease)COVIDOther problems related to medical facilities and other health care 2024-01-21 06:26:06 Severe persistent as thma, uncomplicatedChronic bronchitis-Allergic bronchitis with acute exacerbationBenign paroxysmal positional vertigo due to bilateral vestibular disorderOsteopenia of multiple sitesHTN (hypertension)HypercholesteremiaArthritis associated with diabetesType 2 diabetes mellitus with stage 3b chronic kidney disease, with long-term current use of insulin, unspecified whether stage 3a or 3b CKDMorbid obesity due to excess caloriesStage 3b chronic kidney disease due to diabetes mellitusVascular diseaseUrinary incontinenceMajor depressive disorder, recurrent, moderateRheumatoid factor positiveGERD (gastroesophageal reflux disease)COVIDOther problems related to medical facilities and other health care Plan of Care Date of Service Plans 2023-12-04 06:02:15 Pain Assessment - NO pain documented (1126F)Medication Review by prescribing provider or pharmacist documented (1160F)Medication List Documented (1159F)Functional Status Assessed (1170F)Advance Care Directive Advance care planning discussion documented in the medical record (1158F)BMI obtained (3008F)SBP < 130 (3074F)DBP <80 (3078F)Televideo new patient,40-59min; chronic exacerbation, 2 stable chronic or 1 acute illness add modifier 95Advance care planning discussed and documented ? advance care plan or surrogate decision-maker was documented in the medical record. (1123F)Continue to see PCP. Follow-up with [facility] as needed for any acute or disease education needs that may arise.Use albuterol nebulizerFOLLOWED AND MONITORED BY PCP AND PULMUse meclizine prnCounseled to check fgstk at times of sxs, remain hydrated and to have small and fractioned meals. per OCfollowed and monitored by pcpCheck Vit D levelsControlled. Compliant w/medsContinue benazepril same dose.Counseled re low salt diet/increase moderate physical activity.Check home BP BIW and prn CP/KHOURY/DOENon smoking patient.stATINfollowed and monitored by pcpRO DJD spineOrder XraysRecommended acupunctureTake tylenol prn per OCfollowed AND MONITORED BY PCPeGFR (non-): 39 mL/min, HbA1c: 6.4 %, Yesfollowed and monitored by pcpexercise as tolerated followed and monitored by pcpGFR stableLDL is at goalNeeds to have tighter control of HTNContinue same medication for now and fu with me in 6 weeks.FU with renalper OCfollowed and monitored by pcp and nephroBL LE.Asymptomatic today, mainly co leg edemaCounseled to wear compression stockings, reconsult prnfollowed and monitored by pcp and cardiofollowed and monitored by pvcprx: sertraline followed and monitored by pcp and psyxhfollowed and monitored by pcpRX: OMEPRAZOLE followed and monitored by pcp 2024-01-15 07:59:20 Phone (patient, pare nt, or guardian); 5-10 minutes of medical discussion (no modifier 95)Continue to see PCP. Follow-up with [facility] as needed for any acute or disease education needs that may arise 04/06.pt is not able to use inhalers- she has albuterol nebs - to use q4will address acute URI/bronchitis with atb course and steroid tapercontinue plan of care and conservative measures Albuterol Sulfate (2.5 mg/3ML) 0.083% Nebulization Solution Inhalation 3 ml via nebulizer every 4hours as needed for cough, congestion, SOB, wheezingAzithromycin 250 mg Tab Take 2 tablets PO on day 1, then 1 tablet PO on days 2-5Medrol 4 mg Tab Therapy Pack take as directedMontelukast Sodium 10 mg Tab 1 tablet orally QD for allergy signs/symptoms and to prevent bronchospasmsPulmicort 1 mg/2ML Suspension Inhalation 2 ml orally via nebulizer 2 times per dayFOLLOWED AND MONITORED BY PCP AND PULM 2024-01-17 09:49:12 Phone (patient, pare nt, or guardian); 5-10 minutes of medical discussion (no modifier 95)Continue to see PCP. Follow-up with [facility] as needed for any acute or disease education needs that may arise 04/06.pt is not able to use inhalers- she has albuterol nebs - to use q4will address acute URI/bronchitis with atb course and steroid tapercontinue plan of care and conservative measures Albuterol Sulfate (2.5 mg/3ML) 0.083% Nebulization Solution Inhalation 3 ml via nebulizer every 4hours as needed for cough, congestion, SOB, wheezingAzithromycin 250 mg Tab Take 2 tablets PO on day 1, then 1 tablet PO on days 2-5Medrol 4 mg Tab Therapy Pack take as directedMontelukast Sodium 10 mg Tab 1 tablet orally QD for allergy signs/symptoms and to prevent bronchospasmsPulmicort 1 mg/2ML Suspension Inhalation 2 ml orally via nebulizer 2 times per dayFOLLOWED AND MONITORED BY PCP AND PULMUse meclizine prnCounseled to check fgstk at times of sxs, remain hydrated and to have small and fractioned meals. per OCfollowed and monitored by pcpCheck Vit D levelsControlled. Compliant w/medsContinue benazepril same dose.Counseled re low salt diet/increase moderate physical activity.Check home BP BIW and prn CP/KHOURY/DOENon smoking patient.stATINfollowed and monitored by pcpRO GAGANDEEP spineOrder XraysRecommended acupunctureTake tylenol prn per OCfollowed AND MONITORED BY PCPeGFR (non-): 39 mL/min, HbA1c: 6.4 %, Yesfollowed and monitored by pcpexercise as tolerated followed and monitored by pcpGFR stableLDL is at goalNeeds to have tighter control of HTNContinue same medication for now and fu with me in 6 weeks.FU with renalper OCfollowed and monitored by pcp and nephroBL LE.Asymptomatic today, mainly co leg edemaCounseled to wear compression stockings, reconsult prnfollowed and monitored by pcp and cardiofollowed and monitored by pvcprx: sertraline followed and monitored by pcp and psyxhfollowed and monitored by pcpRX: OMEPRAZOLE followed and monitored by pcp01/17/24: Summary of acute complaint: Member has been feeling ill since Sunday night/Sunday am. She started with coughing, sore throat, yellow sputum, chills, Gi complaints, SOB, wheezing seen by acute 01/15/24 started on Zpack, medrol dose pack, nebulizers. Member continues on these medications and daughter states her congestion, sob, wheezing, sore throat is better. She did have some nausea and one episode of vomiting this am. [facility] tested member this am and she is positive for covid. Discussed pros/cons with Paxlovid and member is nearly out of the window to start it. Daughter feels her symptoms are much improved and will d/w member and if they want to initiate they will call back. Daughter is requesting anti-nausea medication. Called into pharmacy. Member drinking pedialyte, small sips. No abd pain, fever, cp, sob. Red Flag symptoms discussed. ARUN follow up 01/18/24.Call CB if sob, fever, wheezing 2024-01-18 06:20:04 Phone (patient, pare nt, or guardian); 5-10 minutes of medical discussion (no modifier 95)Continue to see PCP. Follow-up with [facility] as needed for any acute or disease education needs that may arise 04/06.CONTINGENCY PLANMember to call for the following symptoms: Wheezing/ Increased coughPlanned intervention: Increase use of albuterol inhaler to q2h PRN cough, breathlessness/ Medrol dose pack (OF NOTE: PREDNISONE MAKES HER VERY JITTERY)/ change in sputum, fever/chills: Levofloxacin 500mg daily x 5 dayspt is not able to use inhalers- she has albuterol nebs - to use q4will address acute URI/bronchitis with atb course and steroid tapercontinue plan of care and conservative measures Albuterol Sulfate (2.5 mg/3ML) 0.083% Nebulization Solution Inhalation 3 ml via nebulizer every 4hours as needed for cough, congestion, SOB, wheezingAzithromycin 250 mg Tab Take 2 tablets PO on day 1, then 1 tablet PO on days 2-5Medrol 4 mg Tab Therapy Pack take as directedMontelukast Sodium 10 mg Tab 1 tablet orally QD for allergy signs/symptoms and to prevent bronchospasmsPulmicort 1 mg/2ML Suspension Inhalation 2 ml orally via nebulizer 2 times per dayFOLLOWED AND MONITORED BY PCP AND PULMUse meclizine prnCounseled to check fgstk at times of sxs, remain hydrated and to have small and fractioned meals. per OCfollowed and monitored by pcpCheck Vit D levelsControlled. Compliant w/medsContinue benazepril same dose.Counseled re low salt diet/increase moderate physical activity.Check home BP BIW and prn CP/KHOURY/DOENon smoking patient.stATINfollowed and monitored by pcpRO DJD spineOrder XraysRecommended acupunctureTake tylenol prn per OCfollowed AND MONITORED BY PCPeGFR (non-): 39 mL/min, HbA1c: 6.4 %, Yesfollowed and monitored by pcpexercise as tolerated followed and monitored by pcpGFR stableLDL is at goalNeeds to have tighter control of HTNContinue same medication for now and fu with me in 6 weeks.FU with renalper OCfollowed and monitored by pcp and nephroBL LE.Asymptomatic today, mainly co leg edemaCounseled to wear compression stockings, reconsult prnfollowed and monitored by pcp and cardiofollowed and monitored by pvcprx: sertraline followed and monitored by pcp and psyxhfollowed and monitored by pcpRX: OMEPRAZOLE followed and monitored by pcp3/7/24: Summary of acute complaint: Member has been feeling ill since Sunday night/Sunday am. She started with coughing, sore throat, yellow sputum, chills, Gi complaints, SOB, wheezing seen by acute 01/15/24 started on Zpack, medrol dose pack, nebulizers. Member continues on these medications and daughter states her congestion, sob, wheezing, sore throat is better. She did have some nausea and one episode of vomiting this am. [facility] tested member this am and she is positive for covid. Discussed pros/cons with Paxlovid and member is nearly out of the window to start it. Daughter feels her symptoms are much improved and will d/w member and if they want to initiate they will call back. Daughter is requesting anti-nausea medication. Called into pharmacy. Member drinking pedialyte, small sips. No abd pain, fever, cp, sob. Red Flag symptoms discussed. [facility] follow up 01/18/24.01/18/24-feeling better, continues to have nausea. Has not yet picked up zofran. Will send again. Is keeping fluids down; vomit x 1 last night. c/o shakiness explained could be due to medrol dose pack and budesonide inhaler. VSS per home health RN. Continue to push pedialite and pick pulling machine tender zofran. f/u sched 01/21/24-call CB 04/06 for change in medical statusCall CB if sob, fever, wheezing 2024-01-21 06:26:06 Phone (patient, pare nt, or guardian); 5-10 minutes of medical discussion (no modifier 95)Continue to see PCP. [facility] acute or disease education needs that may arise 04/06.CONTINGENCY PLANMember to call for the following symptoms: Wheezing/ Increased coughPlanned intervention: Increase use of albuterol inhaler to q2h PRN cough, breathlessness/ Medrol dose pack (OF NOTE: PREDNISONE MAKES HER VERY JITTERY)/ change in sputum, fever/chills: Levofloxacin 500mg daily x 5 dayspt is not able to use inhalers- she has albuterol nebs - to use q4will address acute URI/bronchitis with atb course and steroid tapercontinue plan of care and conservative measures Albuterol Sulfate (2.5 mg/3ML) 0.083% Nebulization Solution Inhalation 3 ml via nebulizer every 4hours as needed for cough, congestion, SOB, wheezingAzithromycin 250 mg Tab Take 2 tablets PO on day 1, then 1 tablet PO on days 2-5Medrol 4 mg Tab Therapy Pack take as directedMontelukast Sodium 10 mg Tab 1 tablet orally QD for allergy signs/symptoms and to prevent bronchospasmsPulmicort 1 mg/2ML Suspension Inhalation 2 ml orally via nebulizer 2 times per dayFOLLOWED AND MONITORED BY PCP AND PULMUse meclizine prnCounseled to check fgstk at times of sxs, remain hydrated and to have small and fractioned meals. per OCfollowed and monitored by pcpCheck Vit D levelsControlled. Compliant w/medsContinue benazepril same dose.Counseled re low salt diet/increase moderate physical activity.Check home BP BIW and prn CP/KHOURY/DOENon smoking patient.stATINfollowed and monitored by pcpRO DJD spineOrder XraysRecommended acupunctureTake tylenol prn per OCfollowed AND MONITORED BY PCPeGFR (non-): 39 mL/min, HbA1c: 6.4 %, Yesfollowed and monitored by pcpexercise as tolerated followed and monitored by pcpGFR stableLDL is at goalNeeds to have tighter control of HTNContinue same medication for now and fu with me in 6 weeks.FU with renalper OCfollowed and monitored by pcp and nephroBL LE.Asymptomatic today, mainly co leg edemaCounseled to wear compression stockings, reconsult prnfollowed and monitored by pcp and cardiofollowed and monitored by pvcprx: sertraline followed and monitored by pcp and psyxhfollowed and monitored by pcpRX: OMEPRAZOLE followed and monitored by pcp01/17/24: Summary of acute complaint: Member has been feeling ill since Sunday night/Sunday am. She started with coughing, sore throat, yellow sputum, chills, Gi complaints, SOB, wheezing seen by acute 01/15/24 started on Zpack, medrol dose pack, nebulizers. Member continues on these medications and daughter states her congestion, sob, wheezing, sore throat is better. She did have some nausea and one episode of vomiting this am. [facility] tested member this am and she is positive for covid. Discussed pros/cons with Paxlovid and member is nearly out of the window to start it. Daughter feels her symptoms are much improved and will d/w member and if they want to initiate they will call back. Daughter is requesting anti-nausea medication. Called into pharmacy. Member drinking pedialyte, small sips. No abd pain, fever, cp, sob. Red Flag symptoms discussed. [facility] follow up 01/18/24.01/18/24-feeling better, continues to have nausea. Has not yet picked up zofran. Will send again. Is keeping fluids down; vomit x 1 last night. c/o shakiness explained could be due to medrol dose pack and budesonide inhaler. VSS per home health RN. Continue to push pedialite and pick pulling machine tender zofran. f/u sched 01/21/24-call CB 04/06 for change in medical status 01/21/24: COVID negative today; no more diarrhea or vomiting. very mild chest congestion (getting better every day) no wheezing today. feeling better today. BS are elevated (has had pred traper and drinking pedialyte for diarrhea). continue to drink water/sugar free fluids. Can stop pedialyte now; continue to monitor sugars.Call CB if sob, fever, wheezing Health Concerns Date Concern 2024-01-21 Visit completed via audio by telephone. Patient/Guardian agreed to visit via telehealth.Time spent in visit: 2024-01-21 Most recent hospital stay(s) or ER visit(s) and precipitating factors: none in the last month 2024-01-21 HEDIS review: done
--- OUTSIDE RECORDS SUMMARY | 2024-12-19 11:26 | XMS_ITS | Encounter Summary ---
Author Organization [employer] Address [address] [facility] 7t [place] [address] Care Team Providers Care Safety Leader Name Role Phone Keely Wilburn MD Primary Care Provider + Reason for Visit * Reason Onset Date Comments Hospital Follow-up 12/18/2024 Encounter Details Date Type Department Care Team ([facility] st Contact Info) Description 12/18/2024 Telephone [facility] MEDICINE [address] [place], [place] [phone] Keely Wilburn MD [address] [place], [place] [phone] Hospital Follow-up Social History Tobacco Use Types Packs/Day Years [...] encounter Miscellaneous Notes * Telephone Encounter - Mae Capps RN - 12/18/2024 9:34 AM EST TC placed to pt via S boarding house manager (ID#[id number]) regarding r/s of HDF. No answer, LVM to call office back and ask to speak to the red team nurses. * Telephone Encounter - Marco Antonio Montanez - 12/18/2024 9:14 AM EST Tc from daughter had to cancel 12/18 HDF visit and needs to r/s. . Network Support Technician offered two other dates and times and she declined. Requesting call from nurse. documented in this encounter Plan of Treatment Upcoming Encounters Date Type Department Care Team (Late st Contact Info) Description 01/15/2025 10:30 AM EST Office Visit [facility] MEDICINE [address] [place] [address] Keely Wilburn MD [address] [place] [address] documented as of this encounter Visit Diagnoses Not on filedocumented in this encounter Care Teams Safety Leader Relationship Specialty Start Date End Date Keely Wilburn MD [address] [place] [address] PCP - General Family Medicine 10/27/19 [place] 08/06/24 documented as of this encounter
--- OUTSIDE RECORDS SUMMARY | 2024-12-19 11:26 | XMS_ITS | Encounter Summary ---
Author Organization [employer] Address [address] [place] [address] Care Team Providers Care Legal Adviser Name Role Phone Keely Wilburn MD Primary Care Provider + Reason for Visit * Reason Comments Med Refill Encounter Details Date Type Department Care Team (Late st Contact Info) Description 05/08/2024 Refill [facility] MEDICINE [address] [place], [place] [phone] Keely Wilburn MD [address] [place], [place] [phone] Osteopenia of neck of femur, unspecified laterality [...] Description 01/15/2025 10:30 AM EST Office Visit [facility] [address] [place] [phone] Keely Wilburn MD [address] [place] [phone] documented as of this encounter Visit Diagnoses Diagnosis Osteopenia of neck of femur, unspecified laterality documented in this encounter Care Teams Legal Adviser Relationship Specialty Start Date End Date Keely Wilburn MD [address] [place] [phone] PCP - General Family Medicine 10/27/19 [employer] 08/06/24 documented as of this encounter
--- OUTSIDE RECORDS SUMMARY | 2024-12-19 11:26 | XMS_ITS | Encounter Summary ---
Author Organization [employer] Address [address] [facility] 7t [place] [address] Care Team Providers Care Aircraft Design Engineer Name Role Phone Keely Wilburn MD Primary Care Provider + Reason for Visit * Reason Onset Date Comments Hospital Follow-up 12/08/2024 Encounter Details Date Type Department Care Team ([facility] st Contact Info) Description 12/08/2024 Telephone [facility] MEDICINE [address] [place], [place] [phone] Keely Wilburn MD [address] [place], [place] [phone] Hospital Follow-up Social History Tobacco Use Types [...] Telephone Encounter - Deanna Mathias - 12/08/2024 1:17 PM EST Tc from pt daughter requesting a HDF appt. Hospital: [place], [place] Date of admission: 12/02 Discharge date: 12/05 Diagnosed: Diarrhea, Vomiting, Abdominal Pain, Chest Pain, Dizziness *Send message to [place] Clinical Care Coordinators documented in this encounter Plan of Treatment Upcoming Encounters Date Type Department Care Team (Late st Contact Info) Description 01/15/2025 10:30 AM EST Office Visit [facility] [address] [place] [phone] Keely Wilburn MD [address] [place] [address] documented as of this encounter Visit Diagnoses Not on filedocumented in this encounter Care Teams Aircraft Design Engineer Relationship Specialty Start Date End Date Keely Wiblurn MD [address] [place] [phone] PCP - General Family Medicine 10/27/19 [employer] 08/06/24 documented as of this encounter
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
--- OUTSIDE RECORDS SUMMARY | 2024-12-19 11:26 | XMS_ITS | Encounter Summary ---
Author Organization [employer] Address [address] 7t [place] [address] Care Team Providers Care Retail Selling Floor Leader Name Role Phone Keely Wilburn MD Primary Care Provider + Reason for Visit * Reason Onset Date Comments VNA 12/08/2024 Encounter Details Date Type Department Care Team ([facility] st Contact Info) Description 12/08/2024 Telephone [facility] MEDICINE [address] [place], [place] [phone] Keely Wilburn MD [address] [place] [address] VNA Social History Tobacco Use Types Packs/Day Years [...] Telephone Encounter - Corina Link RN - 12/10/2024 12:48 PM EST Patient had start of care on 12/09/24 by [facility]. * Telephone Encounter - Corina Link RN - 12/08/2024 2:14 PM EST RN spoke to Christiano [phone] in regards to below message as patient was receiving VA services thru [facility]. RN was informed patient was discharged on 12/03/24 d/t being admitted to the hospital 12/02-12/05 and [facility] referred patient to [facility] upon discharge for PT ONLY. Christiano reports they can take patientback on for VNA services and PT if patient is discharged from [facility]. RN called daughter [phone] to inform of above message. Daughter reports she would like patientto return to S services. Daughter reports she told [facility] PT to not come out as she would like to return to [facility]. Daughter advised RN would call [facility] to ensure patient is discharged and re-refer patientto [facility]. Daughter verbalized understanding. [phone] if patient is active with them and process to discharge patient to return to [facility]. RN was advised patient is NOT established with them as daughter informedthem that patient is established with [facility]. No discharge order needed for [facility]. TC placed to Christiano who needs hospital discharge record, last OV note and new order for VNA and PT. RN has printed required documents and PCP has signed order. RN has provided all documents to BrisaRanjith. TC returned to daughter [phone] to inform she will receive a call from [facility] once the paperwork is processed to schedule visit. Daughter verbalized understanding. Daughter to f/u PRN. * Telephone Encounter - Deanna Mathias - 12/08/2024 1:36 PM EST Tc from pt daughter requesting order for nurse visiting. No more info provided. Any questions contact Ashlyn Armenian documented in this encounter Plan of Treatment Upcoming Encounters Date Type Department Care Team (Late st Contact Info) Description 01/15/2025 10:30 AM EST Office Visit [facility] MEDICINE [address] [place] [phone] Keely Wilburn MD [address] [place] [address] documented as of this encounter Visit Diagnoses Not on filedocumented in this encounter Care Teams Retail Selling Floor Leader Relationship Specialty Start Date End Date Keely Wilburn MD [address] [place] [phone] PCP - General Family Medicine 10/27/19 [employer] 08/06/24 documented as of this encounter
--- OUTSIDE RECORDS SUMMARY | 2024-12-19 11:26 | XMS_ITS | Encounter Summary ---
Author Organization [employer] Address [address] [facility] 7t [place] [address] Care Team Providers Care Boring Mill Operator Name Role Phone Keely Wilburn MD Primary Care Provider + Encounter Details Date Type Department Care Team (Late st Contact Info) Description 11/08/2023 Abstract [facility] MEDICINE [address] [place], [place] [phone] Keely Wilburn MD [address] [place], [place] [phone] Social History Tobacco Use Types Packs/Day Years [...] Description 01/15/2025 10:30 AM EST Office Visit [facility] MEDICINE [address] [place] [phone] Keely Wilburn MD [address] [place] [address] documented as of this encounter Visit Diagnoses Not on filedocumented in this encounter Care Teams Boring Mill Operator Relationship Specialty Start Date End Date Keely Wilburn MD [address] [place] [phone] PCP - General Family Medicine 10/27/19 [facility] 08/06/24 documented as of this encounter
--- OUTSIDE RECORDS SUMMARY | 2024-12-19 11:26 | XMS_ITS | Encounter Summary ---
Author Organization [employer] Address [address] [facility] [address]t [place] [address] Care Team Providers Care Highway Worker Name Role Phone Keely Wilburn MD Primary Care Provider + Reason for Visit * Reason Comments Med Refill Encounter Details Date Type Department Care Team (Late st Contact Info) Description 01/18/2024 Refill [facility] MEDICINE [address] [place], [place] [phone] Keely Wilburn MD [address] [place], [place] [phone] Other postherpetic nervous system involvement Social History Tobacco Use Types Packs/Day Years [...] Description 01/15/2025 10:30 AM EST Office Visit [facility] MEDICINE [address] [place] [phone] Keely Wilburn MD [address] [place] [address] documented as of this encounter Visit Diagnoses Diagnosis Other postherpetic nervous system involvement documented in this encounter Care Teams Highway Worker Relationship Specialty Start Date End Date Keely Wilburn MD [address] [place] [phone] PCP - General Family Medicine 10/27/19 [employer] 08/06/24 documented as of this encounter
--- OUTSIDE RECORDS SUMMARY | 2024-12-19 11:26 | XMS_ITS | Clinical Summary ---
Author Organization [employer] Address [address] [facility] [address] [place] [address] Care Team Providers Care Frame Feeder Name Role Phone Keely Wilburn MD Primary Care Provider + Allergies Active Allergy Reactions Criticality Noted Date Comments Aspirin Hives 11/16/2022 Penicillin G 04/11/2013 Other reaction(s): Rash Medications cyanocobalamin (Vitamin B-12) 100 MCG tablet Take 1 tablet by mouth daily. 021 Active glucose blood (OneTouch Ultra) test strip check by fingerstick route 2 times every day 017 Active sennosides (Senokot) 8.6 MG tablet take 1 tablet by oral route every day as needed for constipation 021 Active timolol (Timoptic) 0.5 % ophthalmic solution instill 1 drop by ophthalmic route 2 times every day into affected eye(s) Active gabapentin (Neurontin) 100 MG capsule Take 100 mg by mouth 3 times daily. Active rosuvastatin (Crestor) 20 MG tablet Take 20 mg by mouth in the morning. 022 Active Acetaminophen Extra Strength 500 MG tablet TAKE 1 TABLET BY MOUTH EVERY 12 HOURS NEEDED 60 tablet 1 023 Active Diclofenac Sodium 1 % gel APPLY 2 GRAMS TOPICALLY TO AFFECTED AREA 3 TIMES A DAY 100 g 1 023 Active lidocaine (Lidoderm) 5 % patchIndication s:Other postherpetic nervous system involvement APPLY 1 PATCH IN THE MORNING REMOVE AND DISARD PATCH WITHIN 12 HOURS OR DIRECTED 30 patch Active albuterol (ProAir HFA) 108 (90 Base) MCG/ACT inhalerIndicati ons:Moderate persistent asthma, unspecified whether complicated INHALE 2 PUFFS BY MOUTH EVERY 4 TO 6 HOURS IF NEEDED 18 g 3 Active albuterol 1.25 MG/3ML nebulizer solutionIndicat ions:Viral upper respiratory tract infection INHALE 1 VIAL VIA NEBULIZER EVERY 6 HOURS IF NEEDED FOR WHEEZING 75 mL 3 Active docusate sodium (Colace) 100 MG capsuleIndicati ons:Slow transit constipation TAKE ONE CAPSULE BY MOUTH TWICE A DAY NEEDED (VIAL) 60 capsule 11 Active calcium carbonate EX (Tums E-X) 750 MG chewable tablet Chew 1 tablet (750 mg) Once per day. 90 tablet 3 024 2024 Active Lantus SoloStar 100 UNIT/ML penIndications: Type 2 diabetes mellitus with other specified complication, unspecified whether rat exterminator insulin use (CMS/[facility]) INJECT 18 UNITS UNDER THE SKIN ONCE DAILY (BULK) 15 mL Active cholecalciferol (Vitamin D-3) 1.25 MG (22169 UT) capsule Take 1 capsule (1.25 mg) by mouth 1 (one) time per week. 12 capsule 1 Active meclizine (Antivert) 25 MG tabletIndicatio ns:Benign paroxysmal positional vertigo, unspecified laterality TAKE ONE TABLET BY MOUTH EVERY DAY NEEDED FOR DIZZINESS (VIAL) 30 tablet Active benazepril (Lotensin) 20 MG tabletIndicatio ns:Primary hypertension TAKE 1 TABLET BY MOUTH TWICE A DAY 60 tablet 11 024 Active Lancets (OneTouch Delica Plus [id number]) miscIndications :Type 2 diabetes mellitus with diabetic nephropathy, with long-term current use of insulin (CMS/[facility]) USE TO TEST BLOOD SUGAR THREE TIMES A DAY 100 each 11 Active allopurinol (Zyloprim) 100 MG tablet Take 1 tablet by mouth Once per day. Active amLODIPine (Norvasc) 5 MG tablet Take 1 tablet by mouth Once per day. Active ammonium lactate (Lac-Hydrin) 12 % lotion Apply 1 Application. topically if needed. Active brimonidine (AlphaGAN) 0.2 % ophthalmic solution Administer 1 drop into the right eye 2 times daily. Active budesonide (Pulmicort) 1 MG/2ML nebulizer solution Take 1 mg by nebulization in the morning and at bedtime. 1 vial Active colchicine 0.6 MG tablet Take 1 tablet by mouth Once per day. Active Continuous Glucose Sensor (FreeStyle Kelly 2 Sensor) [facility] [place] as directed Active Trulicity 3 MG/0.5ML solution auto-injector Inject 1 Pen under the skin every 7 (seven) days. Active ketoconazole (NIZOral) 2 % cream Apply 1 Application. topically Once per day. Active ketorolac (Acular) 0.5 % ophthalmic solution Administer 1 drop into both eyes 2 times daily. Active montelukast (Singulair) 10 MG tablet Take 1 tablet by mouth Once per day. For allergy symptoms Active omeprazole (PriLOSEC) [address] capsule Take 1 capsule by mouth in the morning. Active sertraline (Zoloft) 50 MG tablet Take 1 tablet by mouth Once per day. Active omeprazole (PriLOSEC) [address] capsule Take 40 mg by mouth. 2024 Discontinued(M ed list cleanup (will not trigger notification to Pharmacy)) sertraline (Zoloft) 100 MG tablet Take 100 mg by mouth in the morning. 2024 Discontinued(M ed list cleanup (will not trigger notification to Pharmacy)) Trulicity 1.5 MG/0.5ML solution auto-injectorIn dications:Type 2 diabetes mellitus with hyperglycemia, with long-term current use of insulin ([facility]) INJECT 1.5MG UNDER THE SKIN ONCE WEEKLY (BULK) 2 mL 1 2024 Discontinued(M ed list cleanup (will not trigger notification to Pharmacy)) amLODIPine (Norvasc) 10 MG tablet TAKE 1/2 TABLET BY MOUTH EVERY DAY 15 tablet 11 024 2024 Discontinued(M ed list cleanup (will not trigger notification to Pharmacy)) Active Problems Problem Noted Date Diagnosed Date Venous ulcer of left leg 07/31/2024 Assessment & Plan (07/31/2024 2:34 PM EDT): Ulcer dressing done by RN, see above. Schizoaffective disorder, depressive type 2023 Type 2 diabetes mellitus wit h hyperglycemia, with long-term current use of insulin 07/31/2024 Hyperproteinemia 07/31/2024 Assessment & Plan (07/31/2024 2:50 PM EDT): Follow up with [facility]. 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 Elevated uric acid in blood 05/16/2024 Herpes zoster 05/16/2024 History of COVID-19 05/16/2024 HLD (hyperlipidemia) 05/16/2024 Knee pain, bilateral 05/16/2024 Occipital neuralgia of right side 05/16/2024 Pain and swelling of right wrist 05/16/2024 Right elbow pain 05/16/2024 Schizophrenia 05/16/2024 Varicose veins of lower extremities with inflamm ation 05/16/2024 Vitamin D deficiency 05/16/2024 Assessment & Plan (10/14/2024 1:15 PM EST): She has been without vitamin D for at least 3 months, has secondary hyperTTH. Will call pharmacy and see if we can change medications or if it is already available under stock. FU vitamin D levels in 6 months. Assessment & Plan (08/08/2024 10:25 AM EDT): Labs on 08/04 reviewed. Patient started on Vit D weekly x 6mo Moderate persistent asthma with exacerbation 06/2023 Assessment & Plan (09/19/2023 9:39 AM EST): Use albuterol nebulizer Tenosynovitis of left wrist 09/19/2023 Assessment & Plan (09/19/2023 9:40 AM EST): Recommended to use tylenol Q6H Allergic to NSAIDs Check RA labs due to history of dormant RA Viral upper respiratory tract infection 09/19/20 23 Assessment & Plan (09/19/2023 9:53 AM EST): Use albuterol or nebulizer Continue tylenol PRN, vapor showers, fluids PRN shortness of breath Reconsult PRN Will contain ED visit notes Encounter for immunization 07/28/2023 Assessment & Plan (07/28/2023 8:04 PM EDT): Discussed with patient re increase fresh fruit and vegetable intake. Counseled re moderate exercise as tolerated, up to 20min/d Patient feels safe at home. Continue home care program and VNA to administer and monitor meds.. PAP smear: No need for another PAP smear due to age and no hx of abn PAP. Mammogram: UTD, next one due on 09/2023 Bone density test: TBO Eye exam: UTD, next one due on 09/2023 CRC screen: Repeated colonoscopy scheduled for next month. Lipids/FBS: TBO Vaccinations: Recommended Influenza IZ and Covid booster when available within few weeks. Other adult IZs are UTD. Dental visit: UTD, next one due on 12/2023 Tubular adenoma of colon 05/24/2023 Overview (02/07/2024): [place] [facility] [place] & Plan (07/28/2023 7:53 PM EDT): Repeated colonoscopy (previous one with poor prep) is next month. Assessment & Plan (05/24/2023 11:17 AM EDT): Needs a repeated colonoscopy due to poor prep FU with GI Acute pain of right shoulder 05/24/2023 Assessment & Plan (05/24/2023 11:16 AM EDT): Most likely rotator cuff tendonitis from chronic RTC tendinitis Take tylenol BID x 1 week and then PRN + diclofenac gel Information regarding RTC exercises provided to pt, VNA to monitor Pt will FU with me in 6 weeks will decide if she needs further PT referral Benign paroxysmal positional vertigo 11/16/2022 Assessment & Plan (06/17/2024 7:39 PM EDT): Continue prn Meclizine Slow position changes Refer to outpatient PT for vestibular rehab Assessment & Plan (11/16/2022 10:52 PM EST): Use meclizine prn Counseled to check fgstk at times of sxs, remain hydrated and to have small and fractioned meals. Abnormal gait 10/13/2022 Assessment & Plan (07/31/2024 2:50 PM EDT): Pt has advised OA of hips and knees significant risk of fall, had a PAPER PRODUCTS INSPECTOR for assistance ADLs. Needs assistance and reminders for medication daily, including administration of insulin and finger check. I will prescribe bed rails and handle bars for the bathroom plus a raised toilet seat to improve independence and decrease risk of falls. Prescription for life alert system as patient spends time by herself at home. Arthritis of knee 10/13/2022 Assessment & Plan (07/31/2024 2:34 PM EDT): Pt needs DME supplies to prevent falls, see gait above. Cellulitis of toe 10/13/2022 Chronic right shoulder pain 10/13/2022 Degenerative joint disease of shoulder region Diarrhea 10/13/2022 Dizziness 10/13/2022 Assessment & Plan (07/28/2023 7:54 PM EDT): Encouraged proper hydration Order carotid US Assessment & Plan (05/24/2023 11:15 AM EDT): R/o electrolyte imbalance vs hypoglycemia monitor RBS as above Check labs counseled regarding proper hydration FU in 6 weeks Edema of lower extremity 10/13/2022 Injury of face 10/13/2022 Lateral epicondylitis of right elbow 10/13/2022 Medial epicondylitis 10/13/2022 Moderate persistent asthma without complication 10/13/2022 Neck pain 10/13/2022 Assessment & Plan (07/28/2023 7:50 PM EDT): RO DJD spine Order Xrays Recommended acupuncture Take tylenol prn Rheumatoid factor positive 10/13/2022 Stage 3 chronic kidney disease 10/13/2022 Assessment & Plan (10/14/2024 1:13 PM EST): GFR has been stable, FU with renal. Assessment & Plan (07/31/2024 2:34 PM EDT): GFR has remained stable. Advised to have tight control of DM and HTN. Follow up with renal every year. Assessment & Plan (02/13/2023 9:34 AM EDT): GFR stable LDL is at goal Needs to have tighter control of HTN Continue same medication for now and fu with me in 6 weeks. FU with renal Vascular insufficiency 10/13/2022 Assessment & Plan (07/31/2024 2:33 PM EDT): Advised to use compression stockings. Dressing of leg ulcer done by RN today, pt to continue daily ulcer dressing by VNA w/antibiotic ointment. Pt to follow up with vascular surgery. Assessment & Plan (11/16/2022 10:44 PM EST): BL LE. 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 Refill for albuterol. No change in other meds. Osteopenia 06/18/2012 Assessment & Plan (11/16/2022 10:44 PM EST): Check Vit D levels Postmenopausal bleeding 06/18/2012 Hypertension 04/25/2012 Assessment & Plan (10/14/2024 1:12 PM EST): Better controlled. Compliant w/meds Continue Amlodipine + Benazepril BID Will have DNA faxed BP next month. Counseled re low salt diet/increase moderate physical activity. Check home BP BIW and prn CP/KHOURY/SNOW Non smoking patient. Assessment & Plan (07/31/2024 2:32 PM EDT): Controlled. Compliant w/meds Continue Benazepril 20 mg + Amlodipine 10 mg. Counseled re low salt diet/increase moderate physical activity. Check home BP BIW and prn CP/KHOURY/SNOW Non smoking patient. Assessment & Plan (06/17/2024 7:38 PM EDT): Pt needs VNA services for medication management and VS monitoring Maintenance: Benazapril BMP: Lab Results Component Value Date CREATININE 1.19 05/16/2024 CREATININE 1.06 08/15/2022 Lipid Panel: ASCVD Risk: The 10-year ASCVD risk score (Yuval FIGUEROA, et al., 2019) is: 49% Values used to calculate the score: Age: 74 years Sex: Female Is Non- : No Diabetic: Yes Tobacco smoker: No Systolic Blood Pressure: 149 mmHg Is BP treated: Yes HDL Cholesterol: 42 mg/dL Total Cholesterol: 144 mg/dL - Aerobic exercise to reduce BP. Initial goal of 30 min walk 3-5x/week. Increase as tolerated. - low-sodium diet (goal: <2g/day) and heart healthy diet such as DASH to reduce BP and prevent ASCVD. - Home BP monitoring 1-2 x day with goal of <140/90. - Seek immediate medical attention for chest pain, palpitations, SOB, syncope, or sudden changes in mental status. - Do not change or discontinue current prescriptions without first consulting health care provider Assessment & Plan (07/28/2023 7:52 PM EDT): Controlled. Compliant w/meds Continue benazepril same dose. Counseled re low salt diet/increase moderate physical activity. Check home BP BIW and prn CP/KHOURY/SNOW Non smoking patient. Assessment & Plan (05/24/2023 11:17 AM EDT): Bp is at goal. Continue benazpril 20 Check labs and fu in 6weeks BP to be monitored TIW only and PRN Assessment & Plan (02/13/2023 9:32 AM EDT): it seems to be fairly controlled still with some hypertensive episodes, bp on 02/01 in endo office wnl. continue benazpril and amlodipine and FU bp in 6 weeks with me check BP three times per week Counseled re low salt diet/increase moderate physical activity. Check home BP BIW and prn CP/KHOURY/SNOW Non smoking patient. Pt augustina be holding amlodipine on the day prior and the day of colonoscopy, dave communicate with VNA. Assessment & Plan (11/16/2022 10:43 PM EST): BP is at goal. However patient co increased urination, no s/s UTI, I will dc hydrochlorothiazide, continue benazepril 20mg only and VNA to check BP daily and adjust meds in 2w. Continue amlodipine FU w me in 8w televisit Pure hypercholesterolemia 04/25/2012 Type 2 diabetes mellitus with diabetic nephropat hy 04/25/2012 Assessment & Plan (10/14/2024 9:39 AM EST): Controlled. A1c is at goal. Continue on Trulicity 1.5 mg + Lantus 18 units. Counseled re more frequent low calorie/carb meals. Check fgstk 1 x daily Encouraged physical activity as tolerated. FU in 3 months. Assessment & Plan (07/31/2024 2:36 PM EDT): Controlled. A1c is at goal. Continue on Trulicity 1.5 mg + Lantus 18 units. Counseled re more frequent low calorie/carb meals. Check fgstk once daily Encouraged physical activity as tolerated. FU in 3 months. Will discuss with VNA regarding medication administration daily, especially insulin. Assessment & Plan (05/21/2024 6:38 AM EDT): Well controlled, A1C 6.8 Daughter [place] [facility] [place] difficulty picking [place] up at local [facility] due to supply issues Assessment & Plan (09/19/2023 9:37 AM EST): Is being controlled See previous note, no change in medications Assessment & Plan (07/28/2023 7:54 PM EDT): Controlled. A1c is at goal. Continue on Trulicity and Lantus Counseled re more frequent low calorie/carb meals. Check fgstk Daily and prn dizziness Encouraged physical activity as tolerated. FU in 3 months. Assessment & Plan (05/24/2023 11:18 AM EDT): r/o hypoglycemia PAPER PRODUCTS INSPECTOR will monitor symptoms of dizziness and pt will try to monitor fingersticks PRN A1C has been at goal, continue lantus 18 units + trulicity 1.5mg FU in 6 weeks Assessment & Plan (02/13/2023 9:33 AM EDT): A1C is at goal. Trulicity recetnly increased by endorinologist and pt does not seem to have hypoglycemia fu with me in 5 weeks with glucometer continue same insulin dose Assessment & Plan (11/16/2022 10:51 PM EST): A1c is at goal, concern for hypoglycemia due to recently increased Trulicity by endo. D/w patient and daughter re daily BS monitoring and hypoglycemia sxs. Keep a snack at hand. Counseled re small and fractionated meals. No change in Lantus dose Urinary incontinence 04/25/2012 Assessment & Plan (10/14/2024 1:16 PM EST): Doing well with pull ups, no recent UTIs. Needs prescription for pull ups and urinary incontinence supplies. Resolved Problems Problem Noted Date Diagnosed Date Resolved Date Pneumonia due to COVID-19 virus 10/13/2022 07/31/2024 Encounters Date Type Department Care Team Description 12/19/2024 Orders Only [facility] External Provider, [facility] 12/18/[address] [address] Keely Wilburn MD Hospital Follow-up 12/17/[address] [address] Keely Wilburn MD Chart prep 12/08/[address] [address] Keely Wilburn MD VNA 12/08/2024 Patient Outreach [address] [address] Keely Wilburn MD Transition Of Care (Tcm) (HDF scheduled and SDOH screening negative and Tobacco screening negative) 12/08/[address] [address] Keely Wilburn MD Referral; order 12/08/[address] [address] Keely Wilburn MD Durable Medical Equipment (DME Request: Hand Held Shower Head) 12/08/[address] [address] Keely Wilburn MD Hospital Follow-up 12/05/[address] [address] Keely Wilburn MD ORder 11/14/[address] [address] Keely Wilburn MD January recall 11/14/[address] [address] Keely Wilburn MD Durable Medical Equipment (Home Care Delivered Form: Incontinence Supplies) 10/16/[address] [address] Keely Wilburn MD Type 2 diabetes mellitus with diabetic nephropathy, with long-term current use of insulin ([facility]) 10/15/2024 Telephone [facility] [address] [facility] [place] [address] Corina Link, senior technical business analyst Question 10/14/2024 9:15 AM EST Office Visit [facility] [address] [facility] [place] [address] Keely Wilburn MD Type 2 diabetes mellitus with diabetic nephropathy, with long-term current use of insulin (CMS/[facility]) (Primary Dx); Primary hypertension; Stage 3a chronic kidney disease (CMS/[facility]); Vitamin D deficiency; Mixed stress and urge urinary incontinence 10/14/2024 Telephone [facility] [address] [facility] [place] [address] Keely Wilburn MD Durable Medical Equipment 10/14/2024 Travel 10/07/2024 Orders Only GENERIC EXTERNAL DATA DEPARTMENT Provider, Generic External Data 10/03/2024 Telephone [facility] [address] [facility] [place] [address] Keely Wilburn MD Durable Medical Equipment 10/03/2024 Telephone [facility] [address] [place] [address] Keely Wilburn MD Medication Question 10/01/2024 Refill [facility] [address] [place] [address] Keely Wilburn MD Primary hypertension 09/29/2024 11:30 AM EST Clinical Support [facility] [address] [facility] [place] [address] Valerie Steen, KELLY Primary hypertension 09/29/2024 Telephone [facility] [address] [place] [address] Valerie Steen, KELLY DME request 09/29/2024 Travel 09/25/2024 Refill [facility] [address] [place] [address] Keely Wilburn MD Primary hypertension 09/23/2024 Orders Only [facility] External Provider, [facility] 09/18/2024 Telephone [facility] [address] [place] [address] Keely Wilburn MD Nurse Triage from Last 3 Months Immunizations Name Administration Dates Next Due Hep B, adult 05/21/2017,04/17/2017 Influenza High-dose Quadriva lent Preservative Free 08/24/2022,11/18/2021,09/01/2020 Influenza injectable quadriv alent preservative free 10/15/2018 Influenza, High Dose Seasona l, Preservative Free 07/31/2024,09/01/2020,10/27/2019 Influenza, IIV3, injectable 11/18/2021,1 ,10/27/2019,10/15,08/17/2015,08/12/2014 Influenza, Split (incl. terrance fied surface antigen) 09/26/2014 Influenza, Unspecified 08/17/2015 MMR 05/18/1998 Moderna Covid-19 Vaccine 12+ 09/20/2021,08/19/20 21 Pneumococcal Conjugate PCV 20 05/31/2023 Pneumococcal Polysaccharide PPSV23 08/17/2015,,05/18/1998 TD (adult), 2 Lf tetanus tox oid, preservative free, adsorbed 06/07/2022,06/09/2009,05/18/1998 Td (adult), unspecified 06/09/2009,05/18/1998 Tdap 04/17/2017 Zoster, Recombinant 05/31/2023,11/15/2022 Social History Tobacco Use Types Packs/Day Years Used Date Smoking Tobacco: Never Smokeless Tobacco: Never Tobacco Cessation:Counseling Given: Not Answered Alcohol Use Standard Drinks/Week Comments Never 0 (1 standard drink = 0.6 oz pur e alcohol) Housing Stability Answer Date Recorded What is your housing situation today? I have bryanna louise 12/08/[address] you li [...] not to disclose 2021 10:14 AM EDT Last Filed Vital Signs Vital Sign Reading Time Taken Comments Blood Pressure 145/88 10/14/2024 2:25 PM EST Pulse 62 10/14/2024 9:06 AM EST Temperature 35.1 ??C (95.2 ??F) 10/14/2024 9:06 AM ES T Respiratory Rate 18 09/29/2024 11:54 AM EST Oxygen Saturation 98% 10/14/2024 9:06 AM EST Inhaled Oxygen Concentration - - Weight 88.6 kg (195 lb 4 oz) 10/14/2024 9:06 AM EST Height 154.9 cm (5' 1 ) 10/14/2024 9:06 AM EST Body Mass Index 36.89 10/14/2024 9:06 AM EST Plan of Treatment Upcoming Encounters Date Type Department Care Team (Late st Contact Info) Description 01/15/2025 10:30 AM EST Office Visit [facility] [address] [place] [address] Keely Wilburn MD [address] [place] [address] Health Maintenance Due Date Last Done Comments Diabetes: Foot Exam 1960 Eye Exam 1958 Alcohol/Substance Use Screening 1962 Hepatitis B Vaccines (3 of 3 - 19+ 3-dose series) 10/17/2017 05/21/2017, 04/17/2017 RSV Patients and Patients Aged 60 years or older (1 - 1-dose 75+ series) 2023 Depression Screening 11/16/2023 11/16/2022, 11/16/19 COVID-19 Vaccine ( season) 2024 03/29/2022, 09/20/2021, 08/19/2021 Diabetes: Hemoglobin A1C 01/12/2025 024, 05/16/2024, 05/24/2023, Additional history exists Lipid Panel 08/04/2025 08/04/2024, 08/12, 01/24/2023, Additional history exists Mammogram 10/07/2025 10/07/2024, 09/13, 09/19/2022, Additional history exists Tobacco Screening 10/14/2025 10/14/2024 SDOH Screening 12/08/2025 12/08/2024 DTaP/Tdap/Td Vaccines (3 - Td or Tdap) 06/07/2032 06/07/2022, 04/17/2017, 06/09/2009, Additional history exists FOBT Discontinued 11/23/2019 Pneumococcal Vaccine: 50+ Years Completed 05/31/2023, 08/17/2015, 07/04/2008, Additional history exists Zoster Vaccines Completed 05/31/2023, 11/15/2022 Colonoscopy Discontinued 02/06/2024, 03/07/2023 Colorectal Cancer Screening Discontinued Hepatitis C Screening Completed 05/16/2024 Influenza Vaccine Completed 07/31/2024, , 11/18/2021, Additional history exists CT Colonography Discontinued FIT DNA/Cologuard Discontinued FIT Discontinued HIB Vaccines Aged Out No longer eligi [...] patient's age to complete this topic Meningococcal Vaccine Aged Out No clifford chet eligible based on patient's age to complete this topic RSV under 20 months Aged Out No longe r eligible based on patient's age to complete this topic Rotavirus Vaccines Aged Out No longer eligible based on patient's age to complete this topic Sigmoidoscopy Discontinued Procedures Procedure Name Priority Date/Time Associated Diagnosis Comments XR HAND WRIST LT Routine 12/19/2024 10:2 3 AM EST XR HAND WRIST RT Routine 12/19/2024 10:2 3 AM EST POCT GLYCATED HEMOGLOBIN, TOTAL Routine 10/14/2024 9:16 AM EST Type 2 diabetes mellitus with diabetic nephropathy, with long-term current use of insulin (CMS/HCC) POCT GLUCOSE Routine 10/14/2024 9:07 AM EST Type 2 diabetes mellitus with diabetic nephropathy, with long-term current use of insulin (CMS/HCC) GLUCOSE, WHOLE BLOOD Routine 10/07/2024 9:52 AM EST BI MAMMOGRAM SCREENING TOMOSYNTHESIS BILATERAL Routine 10/07/2024 8:50 AM EST VASC US LOWER EXTREMITY VENOUS DUPLEX BILATERAL Routine 09/23/2024 8:57 AM EST LIPID PANEL WITH REFLEX TO DIRECT LDL Routine 08/04/2024 9:55 AM EDT Type 2 diabetes mellitus with hyperglycemia, with long-term current use of insulin (CMS/HCC) HEPATITIS C AB W/REFL TO HCV RNA, QN, PCR Routine 05/16/2024 11:17 AM EDT Type 2 diabetes mellitus with hyperglycemia, with long-term current use of insulin (CMS/HCC) HM COLONOSCOPY Routine 02/06/2024 ZZZ HISTORICAL OCCULT BLOOD STOOL X3 Routine 11/23/2019 3:00 PM EST from Last 3 Months or Most Recently Relevant to Health Maintenance Results * XR HAND WRIST RT (12/19/2024 10:23 AM EST) Anatomical Region Laterality Modality Abdomen Radiographic Marilyn ging 12/19/2024 10:2 3 AM EST Narrative 12/19/2024 10:56 AM EST ? [facility] ?[address] ?[place] [address] ?XRay Report ? Signed ? Patient: Landeros,Adrianne ?MR#: [id number] ? : 1950 ?Acct:[id number] ? Age/Sex: 74 / F ?ADM Date: 12/19/24 ? Loc: HO.XRAY ? Attending Dr: Donna Albert MD ? Ordering Physician: Donna Albert MD ?? Date of Service: 12/19/24 ?? Procedure(s): XR hand wrist RT ?? Accession Number(s): [id number] ? cc: Donna Albert MD; Keely Wilburn [...] DD/ 1023 ? TD/TT: 12/19/24 1035 ? Crew Truck Driver: ? Procedure Note Jose Lowe - 12/19/[address] [place] [address] XRay Report Signed Patient: Adrianne LanderosMR#: [id number] : 1950Acct:[id number] Age/Sex: 74 / FADM Date: 12/19/24 Loc: MIKAYLA Attending Dr: Donna Albert MD Ordering Physician: Donna Albert MD Date of Service: 12/19/24 Procedure(s): XR hand wrist RT Accession Number(s): [id number] cc: Donna Albert MD; Keely Wilburn MD [...] 12/19/24 1054 DD/ 1023 TD/TT: 12/19/24 1035 Crew Truck Driver: [facility] External Provider IMG XR PROCEDURES Final Result * XR HAND WRIST LT (12/19/2024 10:23 AM EST) Anatomical Region Laterality Modality Abdomen Radiographic Marilyn ging 12/19/2024 10:2 3 AM EST Narrative 12/19/2024 11:09 AM EST ? [facility] ?[address] ?[place] [address] ?XRay Report ? Signed ? Patient: Landeros,Adrianne ?MR#: [id number] ? : 1950 ?Acct:[id number] ? Age/Sex: 74 / F ?ADM Date: 12/19/ ? Loc: HO.XRAY ? Attending Dr: Donna Albert MD ? Ordering Physician: Donna Albert MD ?? Date of Service: 12/19/24 ?? Procedure(s): XR hand wrist LT ?? Accession Number(s): [id number] ? cc: Donna Albert MD; Keely Wilburn [...] ? Signed By: ?<Electronically signed by Rod oTdd MD in OV> ?12/19/24 1107 ? DD/ 1023 ? TD/TT: 12/19/24 1035 ? Crew Truck Driver: ? Procedure Note Donori, Image - 12/19/2024 [place] [address] XRay Report Signed Patient: Adrianne LanderosMR#: [id number] : 8Acct:[id number] Age/Sex: 74 / FADM Date: 12/19/24 Loc: MIKAYLA Attending Dr: Donna Albert MD Ordering Physician: Donna Albert MD Date of Service: 12/19/24 Procedure(s): XR hand wrist LT Accession Number(s): [id number] cc: Donna Albert MD; Keely Wilburn MD [...] MD Signed By: <Electronically signed by Rod Todd MD in OV> 12/19/24 1107 DD/ 1023 TD/TT: 12/19/24 1035 Crew Truck Driver: [facility] External Provider IMG XR PROCEDURES Final Result * (ABNORMAL) POCT HGB A1C (10/14/2024 9:16 AM EST) Hemoglobin A1C 7.0(A) 4.0 - 6.0 % QC Media Lot # [id number] Lot# Expiration Date [id number] Blood 10/14/2024 9:16 AM EST Result [facility] Keely Wilburn MD POINT OF CARE TEST ENTER /EDIT ORDERABLES Final Result * POCT Glucose (10/14/2024 9:07 AM EST) Glucose Blood, POC 199 60 - 200 mg/dL QC Media Lot # [id number] Lot# Expiration Date [id number] Blood Capillary blood specimen / Unknown 10/14/2024 9:07 AM EST Result [facility] Keely Wilburn MD POINT OF CARE TEST ENTER /EDIT ORDERABLES Final Result * (ABNORMAL) Glucose, Whole Blood (10/07/2024 9:52 AM EST) Glucose, Whole Blood 148(H) 60 - 115 mg/dL [facility] Comment:METER #: [id number] Testing performed in the Endocrinology Department [facility], [address] [place] [address] [address], [address], [place]. 10/07/2024 9:52 AM EST 10/07/2024 9:57 AM EST us Generic External Data Provider LAB BLOOD ORDERAB LES Final Result [facility] [address] [place] [address] [phone] * BI Mammogram Screening Tomosynthesis Bilateral (10/07/2024 8:50 AM EST) Anatomical Region Laterality Modality Breast Bilateral Mammography 10/07/2024 8:50 AM EST Narrative 10/16/2024 9:41 AM EST ? [facility] ? [address] ?[place] [address] ? Mammography Report ? Signed ? Patient: Landeros,Adrianne ?MR#: [id number] ? : 1950 ?Acct:[id number] ? Age/Sex: 74 / F ?ADM Date: 10/07/24 ? Loc: HO.MAMMO ? Attending Dr: Keely Wilburn MD ? Ordering Physician: Keely Wilburn MD ?Results: 1Ne ?? gative ? Date of Service: 10/07/ ?Follow Up: 1 Year From Orig ?? inal Mammogram ? Procedure(s): MM tomosynthesis screening BI ?? Accession Number(s): [id number] ? cc: Keely Wilburn MD ? EXAMINATION: ?? MM SCREENING DIGITAL BREAST TOMOSYNTHESIS, BILATERAL ? CLINICAL INFORMATION: ? Screening. Asymptomatic. ? COMPARISON: ?? Mammography: Comparison is made with available priors ? TECHNIQUE: ?? Digital breast mammography with tomosynthesis is performed in both the ?? craniocaudal and mediolateral oblique views along with computer-aided ?? detection (CAD). ? FINDINGS: ?? There are scattered areas of fibroglandular density (ACR BI-RADS breast ?? composition Category b). ? There are no significant masses, abnormal calcifications, or other ?? abnormalities. ? MM/MM tomosynthesis screening BI ?? IMPRESSION: ?? No mammographic evidence of malignancy. ? ASSESSMENT: ? BI-RADS BI-RADS 1 - Negative ? RECOMMENDATION: ?? Routine annual mammography screening. ? 1 year F/U ? This examination should not preclude the clinical evaluation of a ?? suspicious palpable abnormality. ? This patient's information was entered into a reminder system with a ?? target due date for their next mammogram. ? Electronically signed by: ??Marylou Goldstein DO ??10/16/2024 09:38 AM EST ? Dictated By: ?Triston,Marylou DO ? Signed By: ?<Electronically signed by Marylou Goldstein, DO in OV> ? 10/16/24 0938 ? DD/ 0850 ? TD/TT: 10/07/24 0905 ? Crew Truck Driver: ? Procedure Note Jose Lowe - 10/16/2024 [facility] [address] [place] [address] Mammography Report Signed Patient: Adrianne Landeros#: [id number] : 8Acct:[id number] Age/Sex: 74 / FADM Date: 10/07/24 Loc: HO.MAMMO Attending Dr: Keely Wilburn MD Ordering Physician: Keely Wilburn MDResults: 1Ne cande Date of Service: 10/07/24Follow Up: 1 Year From [facility]a Mammogram Procedure(s): MM tomosynthesis screening BI Accession Number(s): [id number] cc: Keely Wilburn MD EXAMINATION: MM SCREENING DIGITAL BREAST TOMOSYNTHESIS, BILATERAL CLINICAL INFORMATION: Screening. Asymptomatic. COMPARISON: Mammography: Comparison is made with available priors TECHNIQUE: Digital breast mammography with tomosynthesis is performed in both the craniocaudal and mediolateral oblique views along with computer-aided detection (CAD). FINDINGS: There are scattered areas of fibroglandular density (ACR BI-RADS breast composition Category b). There are no significant masses, abnormal calcifications, or other abnormalities. MM/MM tomosynthesis screening BI IMPRESSION: No mammographic evidence of malignancy. ASSESSMENT: BI-RADS BI-RADS 1 - Negative RECOMMENDATION: Routine annual mammography screening. 1 year F/U This examination should not preclude the clinical evaluation of a suspicious palpable abnormality. This patient's information was entered into a reminder system with a target due date for their next mammogram. Electronically signed by: Marylou Goldstein DO 10/16/2024 09:38 AM EST Dictated By: Marylou Goldstein DO Signed By: <Electronically signed by Marylou Goldstein DO in OV> 10/16/24 0938 DD/ 0850 TD/TT: 10/07/24 0905 Crew Truck Driver: us Keely Wilburn MD IMG BI PROCEDURES Edited Result - Final * VASC US Lower Extremity Venous Duplex Bilateral (09/23/2024 8:57 AM EST) 09/23/2024 8:57 AM EST Narrative [facility] - 10/16/2024 9:58 AM EST ? [facility] [facility] ?[address] ?[place] [address] ? Ultrasound Report ? Signed ? Patient: Landeros,Adrianne ?MR#: [id number] ? : 1950 ?Acct:[id number] ? Age/Sex: 74 / F ?ADM Date: 09/23/24 ? Loc: HO.US ? Attending Dr: Domingo Fatima MD ? Ordering Physician: Domingo Fatima MD ?? Date of Service: 09/23/24 ?? Procedure(s): US venous duplex LE BI ?? Accession Number(s): [id number] ? cc: Keely Wilburn MD; Domingo Fatima MD ? EXAMINATION: ?? US LOWER EXTREMITY VENOUS (REFLUX EXAM), BILATERAL ? CLINICAL INDICATION: ?? Chronic venous insufficiency with lower extremity varicose veins, ?? history of prior bilateral great saphenous vein ablations ? COMPARISON: ?? Duplex ultrasound from 12/20/2021, 01/02/2022 and 02/20/2022 ? TECHNIQUE: ?? Color flow triplex imaging and compression Doppler was performed to ?? evaluate both the deep and the superficial systems bilaterally. To ?? evaluate the superficial system, the examination was performed in the ?? upright position. Color-flow Doppler ultrasound and compression ?? ultrasound were utilized. In addition, maneuvers were utilized to ?? demonstrate reflux. ? FINDINGS: ? 1. DEEP VENOUS ULTRASOUND OF THE RIGHT LOWER EXTREMITY: ?? Common Femoral Vein: Compressible, normal respiratory variation and ?? augmented flow. ? Femoral Vein: Compressible, normal color flow and augmentation. ?? Popliteal Vein: Compressible, normal augmentation. ? Deep Reflux: There is no evidence of reflux in the deep system in ?? either the common femoral vein, superficial femoral or the popliteal ?? vein. ? There is no evidence of a Wooten's cyst. ? 2. SUPERFICIAL ULTRASOUND WITH DOPPLER OF RIGHT LOWER EXTREMITY: ? GREAT SAPHENOUS VEIN: ?? Saphenofemoral Junction: 0.6 cm; Reflux: 2396 ms ?? Proximal Thigh: 0.5 cm; Reflux: 0 ms ?? Mid Thigh: Occluded ?? Above Knee: 0.3 cm; Reflux: 2008 ms ?? At Knee: 0.3 cm; Reflux: 2180 ms ?? Below Knee: 0.4 cm; Reflux: 1680 ms ?? Mid Calf: 0.3 cm; Reflux: 0 ms ?? Ankle: 0.3 cm; Reflux: 1388 ms ? DUPLICATED MEDIAL GREAT SAPHENOUS VEIN: ?? Diameter: None imaged ?? Reflux: NA ? DUPLICATED LATERAL GREAT SAPHENOUS VEIN: ?? Diameter: 0.2 cm ?? Reflux: 2016 ms in the mid thigh ? SMALL SAPHENOUS VEIN: ?? Saphenopopliteal Junction: 0.2 cm; Reflux: 0 ms ?? Mid: 0.4 cm; Reflux: 0 ms ?? Distal: 0.3 cm; Reflux: 0 ms ? VEIN OF GIACOMINI: ?? Size: NA ?? Reflux: NA ? PERFORATORS: ?? Location: Posterior distal calf into the small saphenous vein, medial ?? proximal calf into the great saphenous vein ?? Size: 0.3 to 0.4 cm ?? Reflux: None ? VARICOSITIES: ?? Location: Proximal to distal thigh reconstituting into the residual ?? great saphenous vein ?? Size: 0.3 cm ?? Reflux: 2300 ms ? VARICOSITIES: ?? Location: Knee and diffusely throughout the calf ?? Size: 0.3 cm ?? Reflux: 1452 ms to 1696 ms ? 3. DEEP VENOUS ULTRASOUND OF THE LEFT LOWER EXTREMITY: ?? Common Femoral Vein: Compressible, normal respiratory variation and ?? augmented flow. ? Femoral Vein: Compressible, normal color flow and augmentation. ?? Popliteal Vein: Compressible, normal augmentation. ? Deep Reflux: There is no evidence of reflux in the deep system in ?? either the common femoral vein, superficial femoral or the popliteal ?? vein. ? There is no evidence of a Wooten's cyst. ? 4. SUPERFICIAL ULTRASOUND WITH DOPPLER OF LEFT LOWER EXTREMITY: ? GREAT SAPHENOUS VEIN: ?? Saphenofemoral Junction: 0.6 cm; Reflux: 1180 ms ?? Proximal Thigh: 0.6 cm; Reflux: 0 ms ?? Mid Thigh: Occluded ?? Above Knee: Occluded ?? At Knee: 0.2 cm; Reflux: 0 ms ?? Below Knee: 0.2 cm; Reflux: 0 ms ?? Mid Calf: 0.2 cm; Reflux: 0 ms ?? Ankle: 0.2 cm; Reflux: 0 ms ? DUPLICATED MEDIAL GREAT SAPHENOUS VEIN: ?? Diameter: None imaged ?? Reflux: NA ? DUPLICATED LATERAL GREAT SAPHENOUS VEIN: ?? Diameter: 0.3 cm ?? Reflux: None ? SMALL SAPHENOUS VEIN: ?? Saphenopopliteal Junction: 0.4 cm; Reflux: 0 ms ?? Mid: 0.3 cm; Reflux: 0 ms ?? Distal: 0.2 cm; Reflux: 0 ms ? VEIN OF GIACOMINI: ?? Size: NA ?? Reflux: NA ? PERFORATORS: ?? Location: None imaged ?? Size: NA ?? Reflux: NA ? VARICOSITIES: ?? Location: Distal thigh and mid calf ?? Size: 0.3 to 0.4 cm ?? Reflux: 1596 ms to 1820 ms ? US/US venous duplex LE BI ?? IMPRESSION: ?? 1. ??Right: Occluded mid thigh great saphenous vein with reflux in the ?? residual segments in the proximal and distal thigh. Refluxing ?? varicosities in the thigh and calf. ?? 2. ??Left: Occluded mid and distal thigh great saphenous vein with ?? reflux at the saphenofemoral junction. Refluxing varicosities in the ?? distal thigh and calf. ? Electronically signed by: ??Moshe Yin MD ??10/16/2024 09:55 AM EST RP ? Dictated By: ?Moshe Yin MD ? Signed By: ?<Electronically signed by Moshe Yin MD in OV> ? 10/16/24 09 ? DD/ 0857 ? TD/TT: 09/23/2440 ? Crew Truck Driver: ? Procedure Note Jose Lowe - 10/16/[address] [address] Ultrasound Report Signed Patient: Adrianne LanderosMR#: [id number] : 8Acct:[id number] Age/Sex: 74 / FADM Date: 09/23/24 Loc: HO.US Attending Dr: Domingo Fatima MD Ordering Physician: Domingo Fatima MD Date of Service: 09/23/24 Procedure(s): US venous duplex LE BI Accession Number(s): [id number] cc: Keely Wilburn MD; Domingo Fatima MD EXAMINATION: US LOWER EXTREMITY VENOUS (REFLUX EXAM), BILATERAL CLINICAL INDICATION: Chronic venous insufficiency with lower extremity varicose veins, history of prior bilateral great saphenous vein ablations COMPARISON: Duplex ultrasound from 12/20/2021, 01/02/2022 and 02/20/2022 TECHNIQUE: Color flow triplex imaging and compression Doppler was performed to evaluate both the deep and the superficial systems bilaterally. To evaluate the superficial system, the examination was performed in the upright position. Color-flow Doppler ultrasound and compression ultrasound were utilized. In addition, maneuvers were utilized to demonstrate reflux. FINDINGS: 1. DEEP VENOUS ULTRASOUND OF THE RIGHT LOWER EXTREMITY: Common Femoral Vein: Compressible, normal respiratory variation and augmented flow. Femoral Vein: Compressible, normal color flow and augmentation. Popliteal Vein: Compressible, normal augmentation. Deep Reflux: There is no evidence of reflux in the deep system in either the common femoral vein, superficial femoral or the popliteal vein. There is no evidence of a Wooten's cyst. 2. SUPERFICIAL ULTRASOUND WITH DOPPLER OF RIGHT LOWER EXTREMITY: GREAT SAPHENOUS VEIN: Saphenofemoral Junction: 0.6 cm; Reflux: 2396 ms Proximal Thigh: 0.5 cm; Reflux: 0 ms Mid Thigh: Occluded Above Knee: 0.3 cm; Reflux: 2008 ms At Knee: 0.3 cm; Reflux: 2180 ms Below Knee: 0.4 cm; Reflux: 1680 ms Mid Calf: 0.3 cm; Reflux: 0 ms Ankle: 0.3 cm; Reflux: 1388 ms DUPLICATED MEDIAL GREAT SAPHENOUS VEIN: Diameter: None imaged Reflux: NA DUPLICATED LATERAL GREAT SAPHENOUS VEIN: Diameter: 0.2 cm Reflux: 2016 ms in the mid thigh SMALL SAPHENOUS VEIN: Saphenopopliteal Junction: 0.2 cm; Reflux: 0 ms Mid: 0.4 cm; Reflux: 0 ms Distal: 0.3 cm; Reflux: 0 ms VEIN OF GIACOMINI: Size: NA Reflux: NA PERFORATORS: Location: Posterior distal calf into the small saphenous vein, medial proximal calf into the great saphenous vein Size: 0.3 to 0.4 cm Reflux: None VARICOSITIES: Location: Proximal to distal thigh reconstituting into the residual great saphenous vein Size: 0.3 cm Reflux: 2300 ms VARICOSITIES: Location: Knee and diffusely throughout the calf Size: 0.3 cm Reflux: 1452 ms to 1696 ms 3. DEEP VENOUS ULTRASOUND OF THE LEFT LOWER EXTREMITY: Common Femoral Vein: Compressible, normal respiratory variation and augmented flow. Femoral Vein: Compressible, normal color flow and augmentation. Popliteal Vein: Compressible, normal augmentation. Deep Reflux: There is no evidence of reflux in the deep system in either the common femoral vein, superficial femoral or the popliteal vein. There is no evidence of a Wooten's cyst. 4. SUPERFICIAL ULTRASOUND WITH DOPPLER OF LEFT LOWER EXTREMITY: GREAT SAPHENOUS VEIN: Saphenofemoral Junction: 0.6 cm; Reflux: 1180 ms Proximal Thigh: 0.6 cm; Reflux: 0 ms Mid Thigh: Occluded Above Knee: Occluded At Knee: 0.2 cm; Reflux: 0 ms Below Knee: 0.2 cm; Reflux: 0 ms Mid Calf: 0.2 cm; Reflux: 0 ms Ankle: 0.2 cm; Reflux: 0 ms DUPLICATED MEDIAL GREAT SAPHENOUS VEIN: Diameter: None imaged Reflux: NA DUPLICATED LATERAL GREAT SAPHENOUS VEIN: Diameter: 0.3 cm Reflux: None SMALL SAPHENOUS VEIN: Saphenopopliteal Junction: 0.4 cm; Reflux: 0 ms Mid: 0.3 cm; Reflux: 0 ms Distal: 0.2 cm; Reflux: 0 ms VEIN OF GIACOMINI: Size: NA Reflux: NA PERFORATORS: Location: None imaged Size: NA Reflux: NA VARICOSITIES: Location: Distal thigh and mid calf Size: 0.3 to 0.4 cm Reflux: 1596 ms to 1820 ms US/US venous duplex LE BI IMPRESSION: 1. Right: Occluded mid thigh great saphenous vein with reflux in the residual segments in the proximal and distal thigh. Refluxing varicosities in the thigh and calf. 2. Left: Occluded mid and distal thigh great saphenous vein with reflux at the saphenofemoral junction. Refluxing varicosities in the distal thigh and calf. Electronically signed by: Moshe Yin MD 10/16/2024 09:55 AM [facility] Dictated By: Moshe Yin MD Signed By: <Electronically signed by Moshe Yin MD in OV> 10/16/2455 DD/ 6 TD/TT: 09/23/24939 Crew Truck Driver: [facility] External Provider CV VASC ULAR PROCEDURES Edited Result - Final Performing Organization Address City/[facility]/ZIP Co de Phone Number [facility] [address] [place] [address] * (ABNORMAL) Lipid Panel with Reflex to Direct LDL (08/04/2024 9:55 AM EDT) Triglycerides 174(H) <150 mg/dL [facility] Comment:Desirable Triglyceri de: less than 150 mg/dLBorderline High Triglyceride 150-199 mg/dLHigh Triglyceride: 200-499 mg/dLVery High Triglyceride: greater than or equal to 5OO mg/dL Cholesterol 145 <200 mg/dL [facility] Comment:Desirable Cholestero l: less than 200 mg/dLBorderline High Cholesterol: 200-239 mg/dLHigh Cholesterol: greater than 239 mg/dL LDL Cholesterol Calculated 68 <100 mg/dL [facility] Comment:Desirable LDL: less than 100 mg/dLNear Optimal/Above Optimal LDL: 110- 129 mg/dLBorderline High LDL: 130-159 mg/dLHigh LDL: 160-189 mg/dLVery High LDL: greater than or equal to 190 mg/dL HDL Cholesterol 43 >40 mg/dL [facility] Comment:Desirable HDL: great er than 40 mg/dL Note: This HDL assay may give artificially low results in patients with liver disease. Blood 08/04/2024 9:55 AM EDT 08/04/2024 2:27 PM EDT Keely Wilburn MD LAB BLOOD ORDERABLES Fin al Result Performing Organization Address City/[facility]/ZIP Co de Phone Number [facility] [address] [place] [address] [phone] * Hepatitis C Antibody with Reflex to HCV, RNA, Quantitative, Real-Time PCR (05/16/2024 11:17 AM EDT) Hepatitis C Antibody Nonreactive Nonreactive [facility] Comment:Antibodies to HCV no t detected; does not exclude early acuteHCV infection. Blood Venous blood specimen / Unknown 05/16/2024 11:17 AM EDT 05/16/2024 1:09 PM EDT us Anusha Real MD LAB BLOOD ORDERABLES Final Res ult Performing Organization Address [facility] Co de Phone Number [facility] [address] [place] [address] [phone] * (ABNORMAL) Hm Colonoscopy (02/06/2024) Colonoscopy Abnormal( A) Normal [facility] Comment:Tubular adenoma; neg ative for high grade dysplasia and carcinoma us Keely Wilburn MD HEALTH MAINTENANCE Final Result Performing Organization Address [facility] Co de Phone Number [facility] [address] [place] [address] [phone] * OCCULT BLOOD STOOL X3 (11/23/2019 3:00 PM EST) OCCULT BLOOD STOOL-1 NEG NEG [facility] OCCULT BLOOD STOOL-1 DATE 11/20/2019 [facility] OCCULT BLOOD STOOL-2 NEG NEG [facility] OCCULT BLOOD STOOL-2 DATE 11/21/2019 [facility] OCCULT BLOOD STOOL-3 NEG NEG [facility] OCCULT BLOOD STOOL-3 DATE 11/23/2019 [facility] 11/23/2019 3:00 PM EST Keely Wilburn MD HISTORICAL/NON ORDERABLE LABS Final Result Performing Organization Address [facility] Co de Phone Number [facility] [address] from Last 3 Months or Most Recently Relevant to Health Maintenance Insurance [facility] Care Teams Frame Feeder Relationship Specialty Start Date End Date Keely Wilburn MD [address] [place] [id number] PCP - General Family Medicine 10/27/19 [place] 08/06/24
--- OUTSIDE RECORDS SUMMARY | 2024-12-19 11:26 | XMS_ITS ---
Author Organization [facility] Address [address] [place] [address] Care Team Providers Care Tc Operator Name Role Phone Cosmo VAZQUEZ, Keely Primary Care Provider Unavail able Rod Arthur Unavailable [phone] Mathew Boss Unavailable Unavailable REASON FOR VISIT hospitalized Encounters Encounter Location Date Provider Diagnosis [facility] [address] [place] [address] 09/10/2023 Rod Arthur PLAN OF TREATMENT No Information
--- OUTSIDE RECORDS SUMMARY | 2024-12-19 11:26 | XMS_ITS | Encounter Summary ---
Author Organization [email or web address] Address [address] [place] [phone] Care Team Providers Care Powerhouse Mechanic Name Role Phone Keely Wilburn MD Primary Care Provider Reason for Visit * Reason Comments DM Foot Care PROGRAM EVALUATOR DIABETIC FOOT CAR E Encounter Details Date Type Department Care Team ([facility] st Contact Info) Description 11/25/2024 9:00 AM EST Consult Orthopedic Surgery - [place] [address] [phone] Cr Bolton, DPNaye [address] [phone] Controlled type 2 diabetes with neuropathy (CMS/HCC) (Primary Dx); Arthritis of both feet; PVD (peripheral vascular disease) (CMS/HCC); Xerosis cutis; Tinea pedis of both feet; Dermatophytosis, nail Social History Tobacco Use Types Packs/Day Years [...] file Not on file Not on file documented as of this encounter Last Filed Vital Signs Vital Sign Reading Time Taken Comments Blood Pressure - - Pulse - - Temperature - - Respiratory Rate - - Oxygen Saturation - - Inhaled Oxygen Concentration - - Weight 86.2 kg (190 lb) 11/25/2024 8:57 AM EST Height 152.4 cm (5') 11/25/2024 8:57 AM EST Body Mass Index 37.11 11/25/2024 8:57 AM EST documented in this encounter Ordered Prescriptions Prescription Sig Dispensed Refills Start Date End Da te ketoconazole (NIZORAL) 2 % cream Apply topically 1 (one) time each day. 60 g 2 11/25/2024 ammonium lactate (AmLactin) 12 % lotion Apply topically if needed for dry skin. 400 g 2 11/25/2024 11/25/2025 documented in this encounter Progress Notes * Cr Bolton, LORENA - 11/25/2024 9:00 AM EST Referring MD: Cosmo Last PCP visit: 10/14/2024 IDENTIFIER: @TITLE@ Tigre is a 74 y.o. year old female who presents for consultation. CC: Pain in toes HPI: Patient presents to office today for initial diabetic foot evaluation as recommended by their primary care physician. Patient states that they have been diabetic for the past few years and has numbness and tingling infeet bilaterally sign Patient with recent wound noted to the left great toe. Patient been dressing with DSD. Patient denies fever nausea vomit shortness of breath Patient would like to inquire about their pedal hygiene, as their toenails have become elongated and painful. Patient is not using antifungals at this time. Patient is wearing good supportive shoes at this time. Patient reports mild calluses that are becoming bothersome. Patient with minimal other pedal complaints at this time. Patient's FBS this AM was 124 Recent A1C is %. 6.8 ROS: GENERAL: Pt denies nausea, fever, vomiting, chills, or shortness of breath. Pt in NAD. CARDIOLOGY: pt denies chest pain, palpitations LUNGS: pt denies shortness of breath MUSCULOSKELETAL: See HPI, otherwise no joint pain or swelling, back pain, or muscle pain. SKIN: see HPI, otherwise no lesions, rash or itching NEURO: No persistent headache, weakness or numbness The remainder of the review of systems is noncontributory PAST MEDICAL HISTORY: Patient Active Problem List Diagnosis Anemia Asthma Closed fracture of lower end of humerus Diabetes mellitus type 2, uncomplicated (CMS/HCC) Hypertension SOCIAL HISTORY: Social History Tobacco Use Smoking status: Never Smokeless tobacco: Never Substance Use Topics Alcohol use: No ACTIVE MEDICATIONS: No outpatient medications have been marked as taking for the 11/25/24 encounter (Consult) with Cr Bolton DPM. ALLERGIES: @ALL@ PHYSICAL EXAM: Height 1.524 m (60 ), weight 86.2 kg (190 lb). PODIATRIC EXAMINATION: GENERAL: Patient appears well nourished, with NAD. VASCULAR: Dorsalis pedis pulses are 1/4 bilaterally and Posterior tibial pulses are 0/4 bilaterally. Capillary filling time within normal limits the digits. No pallor on elevation or rubor on dependency. Positive hair growth. No varicosities. Denies rest pain or claudication pain. NEUROLOGICAL: Sharp/dull sensation intact, protective sensation diminished on [place]. Multiple peripheral neuropathies bilaterally. ORTHOPEDIC: Good muscle strength 5/5 of all flexors and extensors. Dorsi flexion of ankle ,10 degrees, plantar flexion WNL. No muscle atrophy. Arthritic changes of midfoot bilaterally with dorsal exostoses that are palpable. Semirigid contractures of digits 2 through 5. DERMATOLOGICAL:.Small open wound of the left great toe with no fluctuance purulence or malodor. Regular hyperkeratotic rim. Nails are elongated dystrophic discolored x 10 with subungual debris BIOMECHANICS: STJ ROM wnl, MTJ ROM wnl, 1st MPJ ROM wnl. IMPRESSION: 1. Controlled type 2 diabetes with neuropathy ([facility]) 2. Arthritis of both feet 3. PVD (peripheral vascular disease) ([facility]) 4. Xerosis cutis 5. Tinea pedis of both feet 6. Dermatophytosis, nail PLAN: Pt was seen and examined, history reviewed. Patient educated on the importance of good pedal hygiene and tight blood glucose control. Patient encouraged to maintain a healthy lifestyle with a well-balanced diet. Patient should never go barefoot and wear supportive shoe gear. Patient should aim for A1c less than 7% every month. Continue with regular appointments with PMD or jukebox route driver for tight medical management Patient found to have contracted and hammered digits of bilateral forefoot. Due to patients currentage and activity level, will continue with conservative management of these deformities. There are devices that will help reduce chance of irritation, pressure points, blisters, and/or infection. Patient with decreased pulses bilateral lower extremities. Patient courage to ambulate as often as possible as this will promote blood flow to the lower extremities Patient found to have tinea pedis infection of bilateral lower extremity, noted in classic moccassin distribution. Patient reports OTC lotions not working properly and it not resolving quickly. Patient would benefit from topical antifungal medication. RX ketoconazole 2% cream. Patient to apply twice daily the first week, and once a day the second week. Patient with diffuse Xerosis to bilateral feet. Patient will benefit from additional moisture to feet to prevent fissures and crack which could lead to pain or even infection. Rx given for ammonium lactate 12% to be applied daily. Patient encouraged to apply lotion to lightly moistened skin to allow for better absorption. Nail debridement performed to nails 1-5 bilateral as nails were described to be causing pain and difficulty for walking while in shoegear at their previous length. They were debrided in thickness andlength, with no incident. 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 Patient expressed immediate relief. Patient is to RTC in 9 weeks Cr Bolton DPM documented in this encounter Plan of Treatment Upcoming Encounters Date Type Department Care Team (Late st Contact Info) Description 12/23/2024 9:00 AM EST Office Visit Orthopedic Surgery [facility] 175 [facility] [address] [place] [phone] Eloisa Chaudhari PA 174 [facility] [address] [place] [phone] 01/27/2025 9:15 AM EDT Office Visit Orthopedic Surgery [facility] 250 175 [facility] [address] [place] [phone] Cr Bolton DPM 175 [facility] [address] [place] [address] documented as of this encounter Visit Diagnoses Diagnosis Controlled type 2 diabetes with neuropathy (CMS/HCC)- Primary Type II or unspecified type diabetes mellitus with neurological manifestations, not stated as uncontrolled Arthritis of both feet PVD (peripheral vascular disease) (CMS/HCC) Unspecified peripheral vascular disease Xerosis cutis Other specified disease of sebaceous glands Tinea pedis of both feet Dermatophytosis, nail Dermatophytosis of nail documented in this encounter Care Teams Powerhouse Mechanic Relationship Specialty Start Date End Date Keely Wilburn MD [address] [place] [phone] PCP - General 03/01/22 documented as of this encounter
--- OUTSIDE RECORDS SUMMARY | 2024-12-19 11:26 | XMS_ITS | Encounter Summary ---
Author Organization [employer] Address [address] [facility] [address] [place] [address] Care Team Providers Care Manager Search Name Role Phone Keely Wilburn MD Primary Care Provider + Reason for Visit * Reason Comments Med Change Request Encounter Details Date Type Department Care Team (Late st Contact Info) Description 11/06/2023 Refill [facility] [address] [place], [place] [phone] Keely Wilburn MD 230 [place], [place] [phone] Osteopenia of neck of femur, unspecified laterality [...] Description 01/15/2025 10:30 AM EST Office Visit [facility] [address] [place] [phone] Keely Wilburn MD [address] [place] [phone] documented as of this encounter Visit Diagnoses Diagnosis Osteopenia of neck of femur, unspecified laterality documented in this encounter Care Teams Manager Search Relationship Specialty Start Date End Date Keely Wilburn MD [address] [place] [phone] PCP - General Family Medicine 10/27/19 [employer] 08/06/24 documented as of this encounter
--- OUTSIDE RECORDS SUMMARY | 2024-12-19 11:26 | XMS_ITS | Encounter Summary ---
Author Organization [employer] Address 75 [facility] 7t [place] [address] Care Team Providers Care Electrochemist Name Role Phone Keely Wilburn MD Primary Care Provider + Reason for Visit * Reason Onset Date Comments Durable Medical Equipment 12/08/2024 DME Re quest: Hand Held Shower Head Encounter Details Date Type Department Care Team (Late st Contact Info) Description 12/08/2024 Telephone [facility] 230 [place], [place] [phone] Keely Wilburn MD 230 [place] [address] Durable Medical Equipment (DME Request: Hand Held Shower Head) Social History Tobacco Use Types Packs/Day Years [...] encounter Miscellaneous Notes * Telephone Encounter - Nasrin Mejia - 12/08/2024 3:02 PM EST DME RX for Hand Held Shower Head generated and placed on providers desk for signature. * Telephone Encounter - Deanna Mathias - 12/08/2024 1:25 PM EST Tc from pt daughter requesting hose hand held shower. Any questions [phone] Czech documented in this encounter Plan of Treatment Upcoming Encounters Date Type Department Care Team (Late st Contact Info) Description 01/15/2025 10:30 AM EST Office Visit [facility] [address] [place] [address] Keely Wilburn MD 230 [place] [address] documented as of this encounter Visit Diagnoses Not on filedocumented in this encounter Care Teams Electrochemist Relationship Specialty Start Date End Date Keely Wilburn MD 230 [place] [phone] PCP - General Family Medicine 10/27/19 [employer] 08/06/24 documented as of this encounter
--- OUTSIDE RECORDS SUMMARY | 2024-12-19 11:27 | XMS_ITS | Encounter Summary ---
Author Organization [employer] Address [address] [facility] [address] [place] [address] Care Team Providers Care Assembler Show Motor Name Role Phone Keely Wilburn MD Primary Care Provider + Reason for Visit * Reason Comments Med Refill Encounter Details Date Type Department Care Team (Late st Contact Info) Description 08/06/2024 Refill [facility] 230 [place], [place] [phone] Keely Wilburn MD 230 [place], [place] [phone] Benign paroxysmal positional vertigo, unspecified laterality Social History Tobacco Use Types [...] Description 01/15/2025 10:30 AM EST Office Visit [facility] [address] [place] [phone] Keely Wilburn MD [address] [place] [phone] documented as of this encounter Visit Diagnoses Diagnosis Benign paroxysmal positional vertigo, unspecified laterality documented in this encounter Care Teams Assembler Show Motor Relationship Specialty Start Date End Date Keely Wilburn MD [address] [place] [phone] PCP - General Family Medicine 10/27/19 [employer] 08/06/24 documented as of this encounter
--- OUTSIDE RECORDS SUMMARY | 2024-12-19 11:27 | XMS_ITS | Encounter Summary ---
Author Organization [employer] Address 75 [facility] 7t [place] [address] Care Team Providers Care Drawing Tracer Name Role Phone Keely Wilburn MD Primary Care Provider + Reason for Visit * Reason Comments Med Refill Encounter Details Date Type Department Care Team (Late st Contact Info) Description 08/13/2024 Refill [facility] 230 [place], [place] [phone] Keely Wilburn MD 230 [place], [place] [phone] Benign paroxysmal positional vertigo, unspecified laterality; Type 2 diabetes mellitus with other specified complication, unspecified whether halfway insulin use ([facility]) Social History Tobacco Use Types [...] Description 01/15/2025 10:30 AM EST Office Visit [facility] [address] [place] [phone] Keely Wilburn MD [address] [place] [phone] documented as of this encounter Visit Diagnoses Diagnosis Benign paroxysmal positional vertigo, unspecified laterality Type 2 diabetes mellitus with other specified complication, unspecified whether intermediate card tender insulin use ([facility]) documented in this encounter Care Teams Drawing Tracer Relationship Specialty Start Date End Date Keely Wilburn MD [address] [place] [phone] PCP - General Family Medicine 10/27/19 [employer] 08/06/24 documented as of this encounter
--- OUTSIDE RECORDS SUMMARY | 2024-12-19 11:27 | XMS_ITS | Encounter Summary ---
Author Organization [employer] Address [address] [facility] [address] [place] [address] Care Team Providers Care Lockstitch Pocket Setter Name Role Phone Keely Wilburn MD Primary Care Provider + Reason for Visit * Reason Onset Date Comments Nurse Triage 07/07/2024 Encounter Details Date Type Department Care Team (Late st Contact Info) Description 07/07/2024 Telephone [facility] 230 [place], [place] [phone] Keely Wilburn MD 230 [place] [address] Nurse Triage Social History Tobacco Use Types Packs/Day Years [...] encounter Miscellaneous Notes * Telephone Encounter - Anjelica Crawford RN - 07/07/2024 12:02 PM EDT Triage call with [employer] Line Maintainer Section ID [id number] Pt blood sugar this morning was 302. Pt reports that the nurses coming to take Blood sugar come toolate in the morning. Pt has already eaten by the time they come. Pt is unable to take own blood sugar first thing in the morning, daughter reports, we have tried to teach her but, she doesn't learn . Pt is asymptomatic and home care is reviewed. Pt will call back if needed. Protocol Used: Diabetes - High Blood Sugar (Adult) Protocol-Based Disposition: Home Care Positive Triage Question: * Blood glucose 240 - 300 mg/dL (13.3 - 16.7 mmol/L) * All higher-acuity triage questions were negative Care Advice Discussed: * High Blood Sugar (Hyperglycemia) * Treatment - Liquids * Diabetes Pills * Measure and Record Your Blood Glucose * Daily Blood Glucose Goals * Reasons To Call Back - Blood glucose over 300 mg/dL (16.7 mmol/L), two or more times in a row. - Urine ketones become moderate or large (or more than 1+); if you check blood ketones, blood ketone test is over 1.4 mmol/L - Vomiting lasting over 4 hours or unable to drink any fluids - Rapid breathing occurs - You have more questions - You become worse * Telephone Encounter - Marco Antonio Montanez - 07/07/2024 10:29 AM EDT TC from [facility] with [employer] [facility] reports high blood sugars over 200 . Todays Blood Sugar without fasting was 302 Pt non symptomatic at the moment documented in this encounter Plan of Treatment Upcoming Encounters Date Type Department Care Team (Late st Contact Info) Description 01/15/2025 10:30 AM EST Office Visit [facility] 230 [place], [place] [phone] Keely Wilburn MD 230 [place], [place] [phone] documented as of this encounter Visit Diagnoses Not on filedocumented in this encounter Care Teams Lockstitch Pocket Setter Relationship Specialty Start Date End Date Keely Wilburn MD 230 [place], [place] [phone] PCP - General Family Medicine 10/27/19 [employer] 08/06/24 documented as of this encounter
--- OUTSIDE RECORDS SUMMARY | 2024-12-19 11:27 | XMS_ITS | Encounter Summary ---
Author Organization [email or web address] Address [address] [facility] [address] 7[address] [place] [address] Care Team Providers Care High School Professional Name Role Phone Keely Wilburn MD Primary Care Provider + Reason for Visit * Reason Comments Med Refill Encounter Details Date Type Department Care Team (Late st Contact Info) Description 08/11/2024 Refill [facility] 230 [place], [place] [phone] Keely Wilburn MD 230 [place], [place] [phone] Benign paroxysmal positional vertigo, unspecified laterality Social [...] Description 01/15/2025 10:30 AM EST Office Visit [facility] [address] [place] [phone] Keely Wilburn MD [address] [place] [phone] documented as of this encounter Visit Diagnoses Diagnosis Benign paroxysmal positional vertigo, unspecified laterality documented in this encounter Care Teams High School Professional Relationship Specialty Start Date End Date Keely Wilburn MD [address] [place] [phone] PCP - General Family Medicine 10/27/19 [employer] 08/06/24 documented as of this encounter
--- OUTSIDE RECORDS SUMMARY | 2024-12-19 11:27 | XMS_ITS | Continuity of Care Document ---
Author Organization [employer] [facility] - [facility] Address [address] [place] [phone] Care Team Providers Care Financial Market Dealer Name Role Phone HIM CCA OTHER [facility] Referring Provider Assessment Encounter Date Assessment Date Assessment LastModified by Organization Details LastModified Time 12/02/2024 12/02/2024 I provided real -time medical direction via phone for this encounter, and was available for additional phone based assistance as needed. I have reviewed and agree with the Assessment and Plan as documented by the Corncob Pipes Assembler. We discussed the diagnostic uncertainty of home visits and the risk associated with this. The patient given the opportunity to ask questions. [email or web address] Not available 12/03/2024 02:39:54 Plan of Treatment Reminders Order Date Submit Date Provider Last Modified By Organization Details Last Modified Time Details Appointments None recorded. Lab BMP, serum or plasma 2024 025 [email or web address] 0 [facility], [address] [place] [address], [phone], 5 02:43:56 rapid flu (A+B) 2024 025 [email or web address] 0 [facility], [address] [place] [address], [phone], 5 02:43:56 rapid SARS CoV 2 Ag, QL IA, respiratory specimen 2024 025 [email or web address] [address], [phone], 5 02:43:56 Referral None recorded. Procedures None recorded. Surgeries None recorded. Imaging electrocard iogram 2024 025 [email or web address] 0 [facility], [address] [place] [address], [phone], 5 02:43:56 Medication Orders lactated Ringers intravenous solution 2024 025 [email or web address] 0 [id number], [address] [place], [address], 5 02:43:56 ondansetron HCl (PF) 4 mg/2 mL injection solution 2024 025 [email or web address] 0 [id number], [address] [place], [address], 5 02:43:56 famotidine (PF) 20 mg/2 mL intravenous solution 2024 025 [email or web address] 0 [id number], [address] [place], [address], 5 02:43:56 Patient TargetsNo targets recorded. Patient InstructionsNo instructions recorded. Reason for Referral None Reported. Results Created Date Observation Date Name Description Value Unit Range Abnormal Flag Note LastModifiedBy Organization Detail LastModifiedTime 12/02/1912/02/2024 rapid SARS CoV 2 Ag, QL IA, respi rator y speci men rapid SARS CoV 2 Ag, QL IA, respiratory specimen negati ve Not Available [facility] ed [address] [place] [address], [phone], 12/02/2024 12:32:06 12/02/19 25 12/02/2024 rapid flu (A+B) Flu negati ve Not Available [facility] ed [address] [place] [address], [address], 12/02/2024 12:32:06 12/03/19 25 12/03/2024 renzo perez am No observ ation record ed. [email or web address] [facility] [address] [place] [address], [address], 12/03/2024 02:41:54 Result Notes None recorded. Procedures Surgical History None recorded. Imaging Results Imaging Date Name Status LastModified by Organization Details LastModified Time 12/03/2024 electrocardiogram completed [email or web address] [address], [place], [address], 12/03/2024 02:41:54 Procedure Notes None recorded. Medical [...] Not available Not available Not available 07/23/2024 [id number] SNOMED Not Available [facility] - production [...] AutoShield Duo Pen Needle 30 gauge x 3/16 USE WITH INSULIN TWICE DAILY active Not Available Not Available Not Available Trulicity 1.5 mg/0.5 mL subcutaneous pen injector INJECT 1.5 MG SUBCUTANEOU SLY ONCE A WEEK active Not Available Not Available No t Available Trulicity 3 mg/0.5 mL subcutaneous pen injector INJECT 1 PEN SUBCUTANEOU SLY ONCE WEEKLY active Not Available Not Available No t Available Vitals Date Recorded Body height Body temperature Oxygen saturation Oxygen saturation in Arterial blood by Pulse oximetry Body weight Respiratory rate Heart rate Systolic blood pressure Diastolic blood pressure Provider Name and Address Organization Details Last Updated DateTime 5 162.56 cm 98.8 [degF] 97 % 97 % 25025.5 6 g 16 /min 84 /min 130 mm[Hg] 71 mm[Hg] Not Available [facility] - production 5 10:44:43 Social History None recorded. Functional Status None recorded. Mental Status None recorded. Family History Nothing Reported. Medical History No medical history recorded. Gynecological HistoryNo gynecological history recorded. Obstetrics History GPAL:G 0 P 0 0 0 0 Past Encounters Encounter ID Performer Location Encounter Start Date Encounter Closed Date Diagnosis/Indication Diagnosis SNOMED-CT Code Diagnosis ICD10 Code Diagnosis Note [id number] Ely Anne MD [facility] [address] [place] [phone] 12/02/2024 10:44:41 12/03/2024 18:59:31 Chest pain 25994626 R07.9 Patient initially declined the ER, feeling [...] She ultimately agreed, sent by EMS to [facility] lund, report called to the Xpect line in the ER Acute gastroenteritis 69 076980 K52.9 Color improved feels better and dry heaves stopped /less discomfort status post meds and hydration. /Concerned because BUN 36/creatin ine 1.6 and in August 2023 BUN was 26 creatinine 0.99. Other labs non-oncern ing Health Concerns Section Related Observation LastModified by Organization Detai ls LastModified Time None Recorded Concern Status LastModified by Organization Details LastModified Time None Recorded Payers Encounter Date Sequence Insurance Name Policy Number Policy Amezquita Covered Member ID Amezquita Member ID Guarantor Name 12/02/2024 1 [facility] - DOS ON OR AFTER 2023 - DUAL ELIGIBLE - [facility] OPTIONS AND ONE CARE (MEDICARE REPLACEMENT/ADV ANTAGE - HMO) Adrianne Landeros [id number] Adrianne Landeros Notes Date Note Type Note Provider Name and Address Organization Details Recorded Time 12/02/2024 text/html CRC Nurse Triage Notes (Perlita [...] Diabetes Mellitus Type 2 PMH Reviewed at 12/02/2024:28 Allergies Reviewed at 12/02/2024:28 Comments: Vomiting and diarrhea since Sunday. Reports abdominal and chest pain. Patient was taking care of family with GI symptoms. Taking Imodium OTC. Unable to tolerate anything PO. Denies blood in stool. Patient is experiencing dizziness. Education provided on the response time and the member was advised to monitor reported s/s and seek emergency treatment if needed. Corncob Pipes Assembler Organization Information for [facility] [employer] Legal Name: [employer].? Address: [address] [place] [address], [place] [address], Associate Accountant: Jeffrey Cheng MD [facility] No.: [id number] Corncob Pipes Assembler POC Test Results from [facility] - ALS Rapid COVID antigen (11::12) COVID: - Rapid influenza antigen (11::13) Flu: - EKG (::17) EKG test performed. Attachments uploaded as part [...] .................... .................... .................... .................... .................... .................... . Corncob Pipes Assembler Note From [facility]: MIPushpa makes pt contact. She is found laying [...] to her in the bed. Pt is Yoruba-speaking only, so interpretation services are obtained via [...] treatment today. Daughter arrives on scene to [facility] providing translation services. [facility] obtains vital signs and pt is [...] for bmp in anticipation of clinical course. [facility] contacts [facility] and [facility] orders 1 L LR, 4mg IV zofran, and 20mg IV famotadine, w/ repeat dose of zofran if needed. [facility] also raises concerns regarding pt's EKG. A [...] improvement in the nausea and chest pain. [facility] contacts [facility] to discuss pt transport to the ED for a cardiac workup. [facility] discusses this w/ family and pt and pt is amendable to transport by ambulance to [facility]. Pt is transported via [facility] and [facility] calls in pre-arrival report. [facility] is clear. Report completed by JAIR Reed [id number]. [facility] Lab Orders: BMP, serum or plasma: Performed rapid flu (A+B): Performed rapid SARS CoV 2 Ag, QL IA, respiratory specimen: Performed .................... .................... .................... .................... .................... .................... .................... . [facility] Consulted: Ely Anne .................... .................... .................... .................... .................... .................... .................... . Disposition: Fulfilled Ely Anne MD [address] [place] [address],[address] [facility], [place], [address], [place] - LodgeoMILAGROS RAMIREZ 12/03/2024 02:46:08 OBGyn Episode No OBEpisode recorded.
--- OUTSIDE RECORDS SUMMARY | 2024-12-19 11:27 | XMS_ITS | Encounter Summary ---
Author Organization [employer] Address [address] 7t [place] [address] Care Team Providers Care Side Boss Name Role Phone Keely Wilburn MD Primary Care Provider + Reason for Visit * Reason Comments Med Refill Encounter Details Date Type Department Care Team (Late st Contact Info) Description 07/09/2024 Refill [facility] [address] [place], [place] [phone] Keely Wilburn MD [address] [place], [place] [phone] Slow transit constipation; Type 2 diabetes mellitus with hyperglycemia, with long-term current use of insulin ([facility]) Social History Tobacco Use Types Packs/Day Years [...] Description 01/15/2025 10:30 AM EST Office Visit [facility] [address] [place] [address] Keely Wilburn MD [address] [place] [phone] documented as of this encounter Visit Diagnoses Diagnosis Slow transit constipation Type 2 diabetes mellitus with hyperglycemia, with long-term current use of insulin ([facility]) documented in this encounter Care Teams Side Boss Relationship Specialty Start Date End Date Keely Wilburn MD [address] [place] [address] [phone] PCP - General Family Medicine 10/27/19 [employer] 08/06/24 documented as of this encounter
--- OUTSIDE RECORDS SUMMARY | 2024-12-19 11:27 | XMS_ITS | Encounter Summary ---
Author Organization [employer] Address [address] [facility] 7t [place] [address] Care Team Providers Care Metal Grinder Name Role Phone Keely Wilburn MD Primary Care Provider + Reason for Visit * Reason Comments Med Refill Encounter Details Date Type Department Care Team (Late st Contact Info) Description 08/20/2024 Refill [facility] [address] [place], [place] [phone] Keely Wilburn MD [address] [place], [place] [phone] Benign paroxysmal positional vertigo, unspecified laterality; Type 2 diabetes mellitus with other specified complication, unspecified whether skilled nursing insulin use ([facility]) Social History Tobacco Use Types Packs/Day Years [...] 10:30 AM EST Office Visit [facility] [address] [place] [address] Keely Wilburn MD [address] [place] [address] documented as of this encounter Visit Diagnoses Diagnosis Benign paroxysmal positional vertigo, unspecified laterality Type 2 diabetes mellitus with other specified complication, unspecified whether superintendent marine oil terminal insulin use ([facility]) documented in this encounter Care Teams Metal Grinder Relationship Specialty Start Date End Date Keely Wilburn MD [address] [place] [phone] PCP - General Family Medicine 10/27/19 [employer] 08/06/24 documented as of this encounter
--- OUTSIDE RECORDS SUMMARY | 2024-12-19 11:27 | XMS_ITS | Encounter Summary ---
Author Organization [employer] Address [address] [facility] [address] [place] [address] Care Team Providers Care Site Director Name Role Phone Keely Wilburn MD Primary Care Provider + Reason for Visit * Reason Comments Med Refill Encounter Details Date Type Department Care Team (Late st Contact Info) Description 07/08/2024 Refill [facility] [address] [place], [place] [phone] Anusha Real MD [address] [place], [place] [phone] Benign paroxysmal positional vertigo, unspecified laterality Social [...] Description 01/15/2025 10:30 AM EST Office Visit [facility] [address] [place] [address] Keely Wilburn MD [address] [place] [phone] documented as of this encounter Visit Diagnoses Diagnosis Benign paroxysmal positional vertigo, unspecified laterality documented in this encounter Care Teams Site Director Relationship Specialty Start Date End Date Keely Wilburn MD [address] [place] [phone] PCP - General Family Medicine 10/27/19 [employer] 08/06/24 documented as of this encounter
--- OUTSIDE RECORDS SUMMARY | 2024-12-19 11:27 | XMS_ITS | Encounter Summary ---
Author Organization [employer] Address [address] [facility] 7t [place] [address] Care Team Providers Care Helmet Hat Sweatband Puncher Name Role Phone Keely Wilburn MD Primary Care Provider + Reason for Visit * Reason Comments Med Refill Encounter Details Date Type Department Care Team (Late st Contact Info) Description 07/08/2024 Refill [facility] [address] [place], [place] [phone] Keely Wilburn MD [address] [place], [place] [phone] Type 2 diabetes mellitus with hyperglycemia, with long-term current use of insulin ([facility]); Slow transit constipation Social History Tobacco Use Types Packs/Day Years [...] Description 01/15/2025 10:30 AM EST Office Visit [facility] [address] [place] [address] Keely Wilburn MD [address] [place] [address] documented as of this encounter Visit Diagnoses Diagnosis Type 2 diabetes mellitus with hyperglycemia, with long-term current use of insulin ([facility]) Slow transit constipation documented in this encounter Care Teams Helmet Hat Sweatband Puncher Relationship Specialty Start Date End Date Keely Wilburn MD [address] [place] [address] [phone] PCP - General Family Medicine 10/27/19 [employer] 08/06/24 documented as of this encounter
--- OUTSIDE RECORDS SUMMARY | 2024-12-19 11:27 | XMS_ITS | Encounter Summary ---
Author Organization [employer] Address [address] [facility] 7t [place] [address] Care Team Providers Care Dirt Shoveler Name Role Phone Keely Wilburn MD Primary Care Provider + Reason for Visit * Reason Comments Med Refill Encounter Details Date Type Department Care Team (Late st Contact Info) Description 07/16/2024 Refill [facility] [address] [place], [place] [phone] Keely Wilburn MD [address] [place], [place] [phone] Type 2 diabetes mellitus with hyperglycemia, with long-term current use of insulin ([facility]) Social History Tobacco Use Types Packs/Day Years [...] Description 01/15/2025 10:30 AM EST Office Visit [facility] [address] [place] [address] [phone] Keely Wilburn MD [address] [place] [phone] documented as of this encounter Visit Diagnoses Diagnosis Type 2 diabetes mellitus with hyperglycemia, with long-term current use of insulin ([facility]) documented in this encounter Care Teams Dirt Shoveler Relationship Specialty Start Date End Date Keely Wilburn MD [address] [place] [phone] PCP - General Family Medicine 10/27/19 [employer] 08/06/24 documented as of this encounter
--- OUTSIDE RECORDS SUMMARY | 2024-12-19 11:27 | XMS_ITS | Encounter Summary ---
Author Organization [employer] Address [address] [facility] [address] 7[address] [place] [address] Care Team Providers Care Heading And Priming Tool Setter Name Role Phone Keely Wilburn MD Primary Care Provider + Reason for Visit * Reason Onset Date Comments Durable Medical Equipment 08/08/2024 Encounter Details Date Type Department Care Team (Late st Contact Info) Description 08/08/2024 Telephone [facility] [address] [place], [place] [phone] Keely Wilburn MD [address] [place], [place] [phone] Durable Medical Equipment Social History Tobacco Use Types Packs/Day Years [...] encounter Miscellaneous Notes * Telephone Encounter - Ellen Pelaez - 08/08/2024 3:10 PM EDT Tc from pt requesting DME Pull ups Xlarge Bed pads Wipes Gloves Medium documented in this encounter Plan of Treatment Upcoming Encounters Date Type Department Care Team (Late st Contact Info) Description 01/15/2025 10:30 AM EST Office Visit [facility] [address] [place] [address] Keely Wilburn MD [address] [place] [phone] documented as of this encounter Visit Diagnoses Not on filedocumented in this encounter Care Teams Heading And Priming Tool Setter Relationship Specialty Start Date End Date Keely Wilburn MD [address] [place] [address] PCP - General Family Medicine 10/27/19 [employer] 08/06/24 documented as of this encounter
--- OUTSIDE RECORDS SUMMARY | 2024-12-19 11:27 | XMS_ITS | Encounter Summary ---
Author Organization [employer] Address [address] [facility] 7t [place] [address] Care Team Providers Care Cyber Software Engineer Name Role Phone Keely Wilburn MD Primary Care Provider + Reason for Visit * Reason Comments Med Refill Encounter Details Date Type Department Care Team (Late st Contact Info) Description 08/18/2024 Refill [facility] [address] [place], [place] [phone] Keely Wilburn MD [address] [place], [place] [phone] Benign paroxysmal positional vertigo, unspecified laterality; Type 2 diabetes mellitus with other specified complication, unspecified whether fpc insulin use ([facility]) Social History Tobacco Use Types Packs/Day [...] Description 01/15/2025 10:30 AM EST Office Visit [facility] [address] [place] [phone] Keely Wilburn MD [address] [place] [phone] documented as of this encounter Visit Diagnoses Diagnosis Benign paroxysmal positional vertigo, unspecified laterality Type 2 diabetes mellitus with other specified complication, unspecified whether long term care administrator insulin use ([facility]) documented in this encounter Care Teams Cyber Software Engineer Relationship Specialty Start Date End Date Keely Wilburn MD [address] [place] [phone] PCP - General Family Medicine 10/27/19 [employer] 08/06/24 documented as of this encounter
[2024-12-19 11:33] LABS: Basophils Percent Auto 0.4 % (0-2); Eosinophils Absolute Auto 0.2 X10*3/uL (0.0-0.4); Eosinophils Percent Auto 2.1 % (0-4); Hematocrit 32.4 % (37.0-47.0); Hemoglobin 10.3 g/dl (12.0-16.0); Imm Gran Abs Auto 0.02 X10*3/uL (0.00-0.03); Imm Gran Pct Auto 0.3 % (0.0-0.4); Lymphocytes Percent Auto 41.9 % (20-40); Mean Corpuscular HGB Conc 31.8 g/dl (31.0-35.0); Mean Corpuscular Hemoglobin 27.6 pg (27.0-33.0); Mean Corpuscular Volume 86.9 fL (80.0-98.0); Mean Platelet Volume 11.7 fL (9.4-12.3); Monocytes Absolute Auto 0.7 X10*3/uL (0.1-1.2); Monocytes Percent Auto 10.2 % (2-11); Neutrophils Absolute Auto 3.3 x10*3/uL (2.0-8.3); Neutrophils Percent Auto 45.1 % (45-73); Platelet Count 237 X10*3/uL (160-400); Red Blood Count 3.73 X10*6/uL (4.20-5.50); Red Cell Distribution Width 13.2 % (11.0-16.0); White Blood Count 7.3 X10*3/uL (4.8-10.8)
[2024-12-19 12:10] LABS: Alanine Aminotransferase 11 U/L (0-31); Alkaline Phosphatase 55 U/L (39-117); Anion Gap 10 (12-20); Aspartate Amino Transferase 22 U/L (5-31); Bilirubin Total 0.4 mg/dL (0.0-1.0); Blood Urea Nitrogen 32 mg/dL (9-16); C Reactive Protein 0.55 mg/dL (< or = 0.50); Calcium 9.2 mg/dL (8.4-10.2); Carbon Dioxide 24 mmol/L (22-29); Chloride 109 mmol/L (96-108); Estimated Glomerular Filt Rate 50; Glucose Random 111 mg/dL (60-115); Magnesium 1.6 mg/dL (1.6-2.6); Potassium 4.2 mmol/L (3.3-5.1); Sodium 139 mmol/L (135-145); Total Protein 7.7 g/dL (6.5-8.0)
[2024-12-19 12:12] LABS: Erythrocyte Sedimentation Rate 53 MM/HR (0-20)
[2024-12-19 12:17] LABS: Parathyroid Hormone Intact 125.4 pg/mL (8.7-77.1)
== END 2024-12-19 10:22 | disposition home or self-care (01) ==
LOC: HO.XRAY 10:21
PROVIDERS: PCP Internal Medicine; Visit Provider Student in an Organized Health Care Education/Training Program
DX: M11.20 Other chondrocalcinosis, unspecified site (principal)
CPT/HCPCS: 36415; 73110; 73130; 80053; 83735; 83970; 85025; 85652; 86140

== ENCOUNTER → 2024-12-19 10:23 | Outpatient (BNV) | payer OTHER, SELFPAY | PROVIDERS: PCP Internal Medicine; Visit Provider Radiology Diagnostic Radiology | DX: M18.12 Unilateral primary osteoarthritis of first carpometacarpal joint, left hand (principal); M85.841 Other specified disorders of bone density and structure, right hand; M85.842 Other specified disorders of bone density and structure, left hand | CPT/HCPCS: 73110; 73130 ==

== ENCOUNTER 2024-12-25 08:51 | Outpatient (AMB) | payer OTHER, SELFPAY ==
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
--- OUTSIDE RECORDS SUMMARY | 2024-12-25 09:06 | XMS_ITS | Encounter Summary ---
Author Organization [facility] Address [address] [place] [address] Phone Care Team Providers Care River Expedition Guide Name Role Phone Keely Wilburn MD Primary Care Provider + [phone] Encounter Details Date Type Department Care Team (Late Contact Info) Description 03/18/2024 Documentation Only [facility] [address] [place] [address] Juju Avila [address] [place] [phone] Social History Tobacco Use Types Packs/Day Years [...] Visit [facility] [address] [place] [place] [address] Terrance Garcia MD [address] [place] [address] [place] [address] documented as of this encounter Visit Diagnoses Not on filedocumented in this encounter Care Teams River Expedition Guide Relationship Specialty Start Date End Date Keely Wilburn MD [address] [place] [phone] PCP - General Internal Medicine 02/11/20 documented as of this encounter
--- OUTSIDE RECORDS SUMMARY | 2024-12-25 09:06 | XMS_ITS | Data Portability ---
Author Organization [facility], [place] in - MD.Voice Address [address] [place] [address] Care Team Providers Care General Expeditor Name Role Phone HIM CCA OTHER [facility] Referring Provider Assessment Encounter Date Assessment Date Assessment LastModified by Organization Details LastModified Time 07/23/2024 07/23/2024 I provided real -time medical direction via phone for this encounter and was available for additional phone-based assistance as needed. I have reviewed and agree with the Assessment and Plan as documented by the Commissioned Sales Associate. Patient given the opportunity to ask questions. Our service contacted for an assessment of: Edema and discoloration of the leg As per above, patient with chronic venous stasis and wanted an evaluation for possible infection. Please see uploaded pictures. Patient with no increase in pain. Per graduate rn on the scene, vital signs are stable the patient is afebrile. Per graduate rn on the scene there was no increase [...] Assessment and Plan as documented by the Commissioned Sales Associate. We discussed the diagnostic uncertainty of home visits and the risk associated with this. The patient given the opportunity to ask questions. Not available 12/03/2024 02:39:54 Plan of Treatment Reminders Order Date Submit Date Provider Last Modified By Organization Details Last Modified Time Details Appointments None recorded. Lab BMP, serum or plasma 2024 025 [email or web address] 0 [facility], [address] [place] [address], [id number], 5 02:43:56 rapid flu (A+B) 2024 025 [email or web address] 0 [facility], [address] [place] [address], [phone], 5 02:43:56 rapid SARS CoV 2 Ag, QL IA, respiratory specimen 2024 025 [email or web address] 0 [facility], [address] [place] [address], [phone], 5 02:43:56 Referral None recorded. Procedures None recorded. Surgeries None recorded. Imaging electrocard iogram 2024 025 [email or web address] 0 [facility], [address] [place] [address], [address], 5 02:43:56 Medication Orders lactated Ringers intravenous solution 2024 025 [email or web address] 0 [facility]armacy #[id number], [address] [place], [address], 5 02:43:56 ondansetron HCl (PF) 4 mg/2 mL injection solution 2024 025 [email or web address] 0 [facility]/Pharmacy #[id number], [address] [place], [address], 5 02:43:56 famotidine (PF) 20 mg/2 mL intravenous solution 2024 025 [email or web address] 0 [facility]/Pharmacy #[id number], [address] [place], [address], 02:43:56 Patient TargetsNo targets recorded. Patient InstructionsNo instructions recorded. Reason for Referral None Reported. Results Created Date Observation Date Name Description Value Unit Range Abnormal Flag Note LastModifiedBy Organization Detail LastModifiedTime 12/02/1912/02/2024 rapid SARS CoV 2 Ag, QL IA, respi rator y speci men rapid SARS CoV 2 Ag, QL IA, respiratory specimen negati ve Not Available [facility] ed [address] [place] [address], [phone], 12/02/2024 12:32:06 12/02/19 25 12/02/2024 rapid flu (A+B) Flu negati ve Not Available [facility] ed [address] [place] [address], [address], 12/02/2024 12:32:06 12/03/19 25 12/03/2024 elect oh [email or web address] am No observ ation record ed. [address], [phone], 12/03/2024 02:41:54 Result Notes None recorded. Procedures Surgical History None recorded. Imaging Results Imaging Date Name Status LastModified by Organization Details LastModified Time 12/03/2024 electrocardiogram completed [email or web address] [address], [address], 12/03/2024 02:41:54 Procedure Notes None recorded. Medical [...] Not available Not available Not available 07/23/2024 [id number] SNOMED Not Available [facility] - production [...] Address Organization Details Last Updated DateTime 4 69444.6 g 18 /min 60 /min 157.48 cm 98.4 [degF] 97 % 97 % 173 mm[Hg] 82 mm[Hg] Not Available [facility] [employer] 4 17:39:44 Date Recorded Body height Body temperature Oxygen saturation Oxygen saturation in Arterial blood by Pulse oximetry Body weight Respiratory rate Heart rate Systolic blood pressure Diastolic blood pressure Provider Name and Address Organization Details Last Updated DateTime 5 162.56 cm 98.8 [degF] 97 % 97 % 13498.5 6 g 16 /min 84 /min 130 mm[Hg] 71 mm[Hg] Not Available [facility] 5 10:44:43 Social History None recorded. Functional Status None recorded. Mental Status None recorded. Family History Nothing Reported. Medical History No medical history recorded. Gynecological HistoryNo gynecological history recorded. Obstetrics History GPAL:G 0 P 0 0 0 0 Past Encounters Encounter ID Performer Location Encounter Start Date Encounter Closed Date Diagnosis/Indication Diagnosis SNOMED-CT Code Diagnosis ICD10 Code Diagnosis Note [id number] Paz Gaona MD Main - [address] [address] 07/23/2024 17:39:33 07/23/2024 22:02:00 Venous stasis edema of bilateral lower limbs [id number] I87.2 [id number] Ely Anne MD Main - [address] [address] 12/02/2024 10:44:41 12/03/2024 18:59:31 Chest pain 93038037 R07.9 Patient initially declined the ER, feeling [...] sent by EMS to [facility] Mia lund, report called to the Xpect line in the ER Acute gastroenteritis 69 840327 K52.9 Color improved feels better and dry [...] Amezquita Member ID Guarantor Name 07/23/2024 1 [facility] - DOS ON OR AFTER 2023 - DUAL ELIGIBLE - USP OPTIONS AND ONE CARE (MEDICARE REPLACEMENT/ADV ANTAGE - HMO) [facility] [id number] [facility] 12/02/2024 1 [facility] - DOS ON OR AFTER 2023 - DUAL ELIGIBLE - USP OPTIONS AND ONE CARE (MEDICARE REPLACEMENT/ADV ANTAGE - HMO) [facility] [id number] [facility] Notes Date Note Type Note Provider Name and Address Organization Details Recorded Time 07/23/2024 text/html HPI: PMHx:Varicose veins of lower extremities.Call returned to [facility] to triage below. Spoke with daughter who [...] Diabetes Allergies: Aspirin, Penicillin Comments: Reviewed HPI Commissioned Sales Associate Organization Information for [employer] Business Legal Name: [facility] Address: [address] [place] [address], [place] [address], Ski Tow Operator: Donnie LAIRD No.: [id number] Commissioned Sales Associate POC Test Results from [employer] Blood Glucose Measurement (16:50:25) Blood Glucose: 179 mg/dL .................... .................... .................... .................... .................... .................... .................... . Commissioned Sales Associate Note From Norman Stern: Patient seated on [...] noted. good ROM, good CSM, negative calf tenderness.[facility] advises patient to keep appointment next week. Advises patient to consider using compression stockings, dinh wraps and follow up with PCP. [facility] advises patient to use Tylenol as directed for pain. Patient says she has same on hand, red flags patient education discussed. Commissioned Sales Associate Allergies: Aspirin, Penicillin .................... .................... .................... .................... .................... .................... .................... . Disposition: Bethel Paz Gaona MD [address] [place] [address],[address], [place], [phone] 07/23/2024 19:44:57 12/02/2024 text/html CRC Nurse Triage [...] s/s and seek emergency treatment if needed. Commissioned Sales Associate Organization Information for Mahin Reed Business Legal Name: [employer] Address: [address] [place] [address], Ski Tow Operator: Jeffrey Cheng MD CLIA No.: [id number] Commissioned Sales Associate POC Test Results from Mahin Reed - [...] .................... .................... .................... .................... .................... .................... . Commissioned Sales Associate Note From Mahin Reed: [place] makes pt [...] to her in the bed. Pt is Singaporean-speaking only, so interpretation services are obtained via [...] [facility] providing translation services. [facility] obtains vital signs and pt is [...] for bmp in anticipation of clinical course. [facility] contacts [facility] and [facility] orders 1 L LR, 4mg IV zofran, and 20mg IV famotadine, w/ repeat dose of zofran if needed. [facility] also raises concerns regarding pt's EKG. A [...] improvement in the nausea and chest pain. [facility] contacts [facility] to discuss pt transport to the ED for a cardiac workup. [facility] discusses this w/ family and pt and pt is amendable to transport by ambulance to [facility]. Pt is transported via [facility] and [facility] calls in pre-arrival report. [facility] is clear. Report completed by JAIR Reed [id number]. [facility] Lab Orders: BMP, serum or plasma: Performed rapid flu (A+B): Performed rapid SARS CoV 2 Ag, QL IA, respiratory specimen: Performed .................... .................... .................... .................... .................... .................... .................... . [facility] Consulted: Ely Anne .................... .................... .................... .................... .................... .................... .................... . Disposition: Fulfilled Ely Anne MD [address] [facility],[address], [place], [address], [facility] 12/03/2024 02:46:08 OBGyn Episode No OBEpisode recorded.
--- OUTSIDE RECORDS SUMMARY | 2024-12-25 09:06 | XMS_ITS | Clinical Summary ---
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 [address] Health Maintenance Due Date Last Done [...] PM EST) Hemoglobin A1C 6.8(H) (4.0-5.6) % [facility] Comment: MONITORING: In known diabetic patients, [...] Supplement 1 Testing performed or reported by [facility], a Service of [facility], [address] [place] [address] Luis Andino MD, Mock Up Maker [facility]# [id number] Blood (Blood, Venous) 09/28/2022 2:01 PM EST 09/28/2022 2:03 PM EST us Terrance Garcia MD LAB BLOOD ORDERABLES Final Re sult [facility] from Last 3 Months or Most Recently Relevant to Health Maintenance Insurance [address] [place], [place] [id number] [place] [address] CARE DUAL SNP ([id number]) [place] [id number] Care Teams Swahili Teacher Relationship Specialty Start Date End Date Keely Wilburn MD [address] [place] [address] [phone] PCP - General Internal Medicine 02/11/20
--- OUTSIDE RECORDS SUMMARY | 2024-12-25 09:06 | XMS_ITS | Encounter Summary ---
Author Organization [facility] Address [address] [facility] [address] [place] [address] Care Team Providers Care Fur Floor Worker Name Role Phone Keely Wilburn MD Primary Care Provider + Encounter Details Date Type Department Care Team (Late Contact Info) Description 01/17/2023 Abstract [facility] [address] [place] [address] Keely Wilburn MD [address] [place], [place] [phone] Social History Tobacco Use Types Packs/Day Years [...] Description 01/15/2025 10:30 AM EST Office Visit [facility] [address] [place], [place] [phone] Keely Wilburn MD [address] [place] [address] documented as of this encounter Visit Diagnoses Not on filedocumented in this encounter Care Teams Fur Floor Worker Relationship Specialty Start Date End Date Keely Wilburn MD [address] [place] [address] PCP - General Family Medicine 10/27/19 Manflu 08/06/24 documented as of this encounter
--- OUTSIDE RECORDS SUMMARY | 2024-12-25 09:06 | XMS_ITS | Encounter Summary ---
Author Organization [facility] Address [address] [place] [address] Phone Care Team Providers Care Guest Advisor Name Role Phone Keely Wilburn MD Primary Care Provider + [phone] Encounter Details Date Type Department Care Team (Late Contact Info) Description 09/29/2024 Documentation Only [facility] [address] [place] [address] Juju Avila [address] [place] [phone] Social History Tobacco Use Types Packs/Day Years [...] Visit [facility] [address] [place] [address] Terrance Garcia MD [address] [place] [address] [place] [address] documented as of this encounter Visit Diagnoses Not on filedocumented in this encounter Care Teams Guest Advisor Relationship Specialty Start Date End Date Keely Wilburn MD [address] [place] [address] PCP - General Internal Medicine 02/11/20 documented as of this encounter
--- OUTSIDE RECORDS SUMMARY | 2024-12-25 09:06 | XMS_ITS | Encounter Summary ---
Author Organization [facility] Address [address] [place] [address] Phone Care Team Providers Care Aerophysicist Name Role Phone Keely Wilburn MD Primary Care Provider + [phone] Encounter Details Date Type Department Care Team (Late Contact Info) Description 03/18/2024 Documentation Only [facility] [address] [place] [address] Juju Avila [address] [place] [phone] Social History Tobacco Use Types Packs/Day Years [...] Visit [facility] [address] [place] [address] Terrance Garcia MD [address] [place] [address] [place] [address] documented as of this encounter Visit Diagnoses Not on filedocumented in this encounter Care Teams Aerophysicist Relationship Specialty Start Date End Date Keely Wilburn MD [address] [place] [address] PCP - General Internal Medicine 02/11/20 documented as of this encounter
--- OUTSIDE RECORDS SUMMARY | 2024-12-25 09:07 | XMS_ITS | Encounter Summary ---
Author Organization [facility] Address [address] [place] [address] Phone Care Team Providers Care Rotor Plate Washer Name Role Phone Keely Wilburn MD Primary Care Provider + [phone] Encounter Details Date Type Department Care Team (Late Contact Info) Description 09/02/2024 Documentation Only [facility] [address] [place] [address] Jaz Jane [place] [address] [place] [phone] Social History Tobacco Use Types Packs/Day Years [...] Visit [facility] [address] [place] [place] [address] Terrance Garcia MD [address] [facility] [place] [address] documented as of this encounter Visit Diagnoses Not on filedocumented in this encounter Care Teams Rotor Plate Washer Relationship Specialty Start Date End Date Keely Wilburn MD [address] [place] [address] PCP - General Internal Medicine 02/11/20 documented as of this encounter
--- OUTSIDE RECORDS SUMMARY | 2024-12-25 09:07 | XMS_ITS | Encounter Summary ---
Author Organization [facility] Address [address] [place] [address] Phone Care Team Providers Care Special Certificate Dictator Name Role Phone Keely Wilburn MD Primary Care Provider + [phone] Encounter Details Date Type Department Care Team (Late Contact Info) Description 08/05/2024 Documentation Only [facility] [address] [place] [address] Jaz Jane [place] [address] [place] [phone] Social History Tobacco Use Types Packs/Day Years [...] Visit [facility] [address] [place] [address] Terrance Garcia MD [address] [facility] [place] [address] documented as of this encounter Visit Diagnoses Not on filedocumented in this encounter Care Teams Special Certificate Dictator Relationship Specialty Start Date End Date Keely Wilburn MD [address] [place] [address] PCP - General Internal Medicine 02/11/20 documented as of this encounter
--- OUTSIDE RECORDS SUMMARY | 2024-12-25 09:07 | XMS_ITS | Encounter Summary ---
Author Organization [employer] Address [address] [facility] 7[address] [place] [address] Care Team Providers Care Performance Specialist Name Role Phone Keely Wilburn MD Primary Care Provider + Reason for Visit * Reason Onset Date Comments Email paperwork 12/26/2022 Encounter Details Date Type Department Care Team ([facility] st Contact Info) Description 12/26/2022 Telephone [facility] [address] [place], [place] [phone] Keely Wilburn MD [address] [place] [address] Email paperwork Social History Tobacco Use Types [...] encounter Miscellaneous Notes * Telephone Encounter - Wernerdang Washburnglenn Rosa - 12/26/2022 3:13 PM EST Tc from Cathryn with [facility] stating that she spoke with a nurse regarding some paperwork that nurse was having trouble faxing over and Cathryn gave over her but she has not receive anything back, the email is [email or web address] If any information needed please contact Cathryn at [phone] documented in this encounter Plan of Treatment Upcoming Encounters Date Type Department Care Team (Late st Contact Info) Description 01/15/2025 10:30 AM EST Office Visit [facility] [address] [place] [address] Keely Wilburn MD [address] [place] [phone] documented as of this encounter Visit Diagnoses Not on filedocumented in this encounter Care Teams Performance Specialist Relationship Specialty Start Date End Date Keely Wilburn MD [address] [place] [address] PCP - General Family Medicine 10/27/19 [employer] 08/06/24 documented as of this encounter
--- OUTSIDE RECORDS SUMMARY | 2024-12-25 09:08 | XMS_ITS | Encounter Summary ---
Author Organization [facility] Address [address] [place] [address] Phone Care Team Providers Care Lpn Home Health Name Role Phone Keely Wilburn MD Primary Care Provider + [phone] Encounter Details Date Type Department Care Team (Late Contact Info) Description 03/18/2024 Documentation Only [facility] [address] [place] [address] Juju Avila [address] [place] [phone] Social History Tobacco Use Types Packs/Day Years [...] Visit [facility] [address] [place] [address] Terrance Garcia MD [address] [place] [address] [place] [address] documented as of this encounter Visit Diagnoses Not on filedocumented in this encounter Care Teams Lpn Home Health Relationship Specialty Start Date End Date Keely Wilburn MD [address] [place] [address] PCP - General Internal Medicine 02/11/20 documented as of this encounter
--- OUTSIDE RECORDS SUMMARY | 2024-12-25 09:08 | XMS_ITS | Encounter Summary ---
Author Organization [facility] Address [address] [place] [address] Phone Care Team Providers Care Broker Associate Name Role Phone Keely Wilburn MD Primary Care Provider + [phone] Encounter Details Date Type Department Care Team (Late Contact Info) Description 03/18/2024 Documentation Only [facility] [address] [place] [address] Juju Avila [address] [place] [phone] Social History Tobacco Use Types Packs/Day Years [...] Visit [facility] [address] [place] [address] Terrance Garcia MD [address] [place] [address] [place] [address] documented as of this encounter Visit Diagnoses Not on filedocumented in this encounter Care Teams Broker Associate Relationship Specialty Start Date End Date Keely Wilburn MD [address] [place] [address] PCP - General Internal Medicine 02/11/20 documented as of this encounter
--- OUTSIDE RECORDS SUMMARY | 2024-12-25 09:08 | XMS_ITS | Encounter Summary ---
Author Organization [facility] Address [address] [place] [address] Phone Care Team Providers Care Arc Air Operator Name Role Phone Keely Wilburn MD Primary Care Provider + [phone] Encounter Details Date Type Department Care Team (Late Contact Info) Description 03/18/2024 Documentation Only [facility] [address] [place] [address] Juju Avila [address] [place] [phone] Social History Tobacco Use Types Packs/Day Years [...] Visit [facility] [address] [place] [address] Terrance Garcia MD [address] [place] [address] [place] [address] documented as of this encounter Visit Diagnoses Not on filedocumented in this encounter Care Teams Arc Air Operator Relationship Specialty Start Date End Date Keely Wilburn MD [address] [place] [address] PCP - General Internal Medicine 02/11/20 documented as of this encounter
--- OUTSIDE RECORDS SUMMARY | 2024-12-25 09:08 | XMS_ITS | Encounter Summary ---
Author Organization [employer] Address [address] [place] [phone] Care Team Providers Care Director Of Search Engine Optimization Name Role Phone Keely Wilburn MD Primary Care Provider [phone] Reason for Visit * Reason Comments Pain Pain Encounter Details Date Type Department Care Team (Latest Contact Info) Description 12/23/2024 9:00 AM EST Office Visit Orthopedic Surgery - [place] [address] [facility] [address] [place] [phone] Eloisa Chaudhari PA [address] [facility] [address] [place] [phone] Primary osteoarthritis of both knees (Primary Dx) Social History Tobacco Use Types Packs/Day Years Used Date Smoking Tobacco: Never Smokeless Tobacco: Never Alcohol Use Standard Drinks/Week Comments No 0 (1 standard drink = 0.6 oz pur e alcohol) Comments Unknown Sex and Gender Information Value Date Recorded Sex Assigned at Not on file Legal Sex Female 4:35 AM EST Gender Identity Not on file Sexual Orientation Not on file documented as of this encounter Progress Notes * AMERICA Brito - 12/23/2024 9:00 AM EST CHIEF COMPLAINT: Pain of the Left Knee and Pain of the Right Knee had concerns including Pain of the Left Knee and Pain of the Right Knee. IDENTIFIER: Adrianne Landeros is a 74 y.o. old female SUBJECTIVE: Adrianne Landeros is here for follow up on 12/23/2024 for bilateral knee pain and osteoarthritis. She had Durolane injections in July which did help. Cortisone injections have offered little relief and elevated her blood sugars. She is here today for follow-up. She ambulates with a walker. She Divehi- speaking and her daughter is interpreting. She reports her knees are actually feeling pretty good. She is undergoing a procedure in the next week for her right lower extremity for varicose veins and does see vascular. She does have diabetes. PAST MEDICAL/SURGICAL HISTORY: Patient Active Problem List Diagnosis Date Noted Anemia 10/03/2024 Asthma 10/03/2024 Diabetes mellitus type 2, uncomplicated ([facility]) 10/03/2024 Hypertension 10/03/2024 Closed fracture of lower end of humerus 08/11/2010 Past Surgical History: Procedure Laterality Date OTHER SURGICAL HISTORY PROCEDURE: DENIES PREVIOUS SURGERY OTHER SURGICAL HISTORY PROCEDURE: IL LIG/TRNSXJ FLP TUBE ABDL/VAG APPR UNI/BI MEDICATIONS DISCONTINUED/REORDERED: There are no discontinued medications. ACTIVE MEDICATIONS: No outpatient medications have been marked as taking for the 12/23/24 encounter (Office Visit) with AMERICA Brito. ALLERGIES: Allergies Allergen Reactions Penicillins Rash PHYSICAL EXAM: Visit Vitals Smoking Status Never APPEARANCE: Alert and in no acute distress EXTREMITIES: Extremities warm and well perfused without clubbing, cyanosis, or edema Bilateral knees no effusion. No warmth erythema. Positive patellofemoral crepitus left greater thanright. No medial or lateral joint line tenderness. Full range of motion. VASCULAR:well perfused with normal pulses in the distal extremities and no peripheral edema noted NEURO: Awake, alert and oriented SKIN: Skin color, texture, turgor normal. No rashes or lesions. PSYCH: does not appear depressed or anxious and oriented to time, place and person LABS/IMAGING: Lab Results Component Value Date HGBA1C 6.5 (A) 07/12/2018 Xrays reviewed: Narrative & Impression Date of Visit: 04/14/2024 Reason for visit: Bilateral knee pain and osteoarthritis Views: Lateral, sunrise and Liang bilateral knees Comparison: X-rays [facility] many years ago Findings: Left knee mild to moderate osteoarthritis tricompartmental with chondrocalcinosis. Right knee moderate to severe tricompartmental osteoarthritis. Southside view normal patellofemoral relationships mild arthritis. Impression: Mild to moderate osteoarthritis of the left knee and moderate to severe on the right. IMPRESSION: 1. Primary osteoarthritis of both knees PLAN: The details of the visit were reviewed with the patient. Pertinent history, and objective findings were reviewed, along with the diagnoses: Bilateral knee osteoarthritis. Things have been stable. Sheis minimally symptomatic. Therefore we do not need to order Durolane currently. She will call for an appointment if symptoms increase. Adrianne Landeros acknowledges understanding of the above plan and agrees to follow recommendations and/or take medications as prescribed. No orders of the defined types were placed in this encounter. @[email or web address]@ documented in this encounter Plan of Treatment Upcoming Encounters Date Type Department Care Team ([facility] st Contact Info) Description 01/27/2025 9:15 AM EDT Office Visit Orthopedic Surgery - [place] [address] [phone] Cr Bolton, DPM [address] [address] documented as of this encounter Visit Diagnoses Diagnosis Primary osteoarthritis of both knees- Primary documented in this encounter Care Teams Director Of Search Engine Optimization Relationship Specialty Start Date End Date Keely Wilburn MD [address] [facility] [address] [place] [address] PCP - General 03/01/22 documented as of this encounter
--- OUTSIDE RECORDS SUMMARY | 2024-12-25 09:08 | XMS_ITS | Encounter Summary ---
Author Organization [facility] Address [address] [place] [address] Phone Care Team Providers Care Bilingual Receptionist Name Role Phone Keely Wilburn MD Primary Care Provider + [phone] Encounter Details Date Type Department Care Team (Late Contact Info) Description 03/18/2024 Documentation Only [facility] [address] [place] [address] Juju Avila [address] [place] [phone] Social History Tobacco Use Types Packs/Day Years [...] Visit [facility] [address] [place] [address] Terrance Garcia MD [address] [place] [address] [place] [address] documented as of this encounter Visit Diagnoses Not on filedocumented in this encounter Care Teams Bilingual Receptionist Relationship Specialty Start Date End Date Keely Wilburn MD [address] [place] [address] PCP - General Internal Medicine 02/11/20 documented as of this encounter
--- OUTSIDE RECORDS SUMMARY | 2024-12-25 09:08 | XMS_ITS ---
Author Organization [facility] Address [address] [place] [address] Care Team Providers Care Residential Team Leader Name Role Phone Keely Wilburn MD Primary Care Provider Unavail able Rod Arthur Unavailable [phone] Mathew Boss Unavailable Unavailable REASON FOR VISIT screening colon Encounters Encounter Location Date Provider Diagnosis [facility] [place] [address] [place], [place] [phone] 02/06/2024 Rod Arthur Encounter for scre ening [...]
--- OUTSIDE RECORDS SUMMARY | 2024-12-25 09:08 | XMS_ITS | Encounter Summary ---
Author Organization [employer] Address [address] [facility] 7t [place] [address] Care Team Providers Care Bull Driver Name Role Phone Keely Wilburn MD Primary Care Provider + Reason for Visit * Reason Onset Date Comments Care Coordination 12/23/2024 Encounter Details Date Type Department Care Team (Late st Contact Info) Description 12/23/2024 Telephone [facility] [address] [place], [place] [phone] Corina Link, RN [address] [place] [address] Care Coordination Social History Tobacco Use Types Packs/Day Years [...] Telephone Encounter - Corina Link RN - 12/23/2024 6:52 PM EST Labs were ordered by [facility]. Patient has an upcoming appointment with [facility]ology on12/25/24. Sending to PCP as FYI. ----- Message from Keely Wilburn MD sent at 12/23/2024 3:32 PM EST ----- Labs on 12/19/2024 show increased PTH and elevated inflammatory markers. Unclear who ordered this test, please call the lab and check for them either at the ED or renal and see if they follow-up on it. documented in this encounter Plan of Treatment Upcoming Encounters Date Type Department Care Team (Late st Contact Info) Description 01/15/2025 10:30 AM EST Office Visit [facility] [address] [place] [address] Keely Wilburn MD [address] [place] [address] documented as of this encounter Visit Diagnoses Not on filedocumented in this encounter Care Teams Bull Driver Relationship Specialty Start Date End Date Keely Wilburn MD [address] [place] [address] PCP - General Family Medicine 10/27/19 [employer] 08/06/24 documented as of this encounter
--- OUTSIDE RECORDS SUMMARY | 2024-12-25 09:08 | XMS_ITS | Encounter Summary ---
Author Organization [facility] Address [address] [place] [address] Phone Care Team Providers Care Advanced Solutions Architect Name Role Phone Keely Wilburn MD Primary Care Provider + [phone] Encounter Details Date Type Department Care Team (Late st Contact Info) Description 10/11/2021 Documentation Only [facility] [address] [place] [address] Terrance Garcia MD [address] [place] [address] [place] [address] Social History Tobacco Use Types [...] Visit [facility] [address] [place] [address] Terrance Garcia MD [address] [facility] [address] [place] [address] documented as of this encounter Visit Diagnoses Not on filedocumented in this encounter Care Teams Advanced Solutions Architect Relationship Specialty Start Date End Date Keely Wilburn MD [address] [place] [address] PCP - General Internal Medicine 02/11/20 documented as of this encounter
--- OUTSIDE RECORDS SUMMARY | 2024-12-25 09:08 | XMS_ITS | Encounter Summary ---
Author Organization [facility] Address [address] [place] [address] Phone Care Team Providers Care Boiling House Oiler Name Role Phone Keely Wilburn MD Primary Care Provider + [phone] Encounter Details Date Type Department Care Team (Late Contact Info) Description 03/18/2024 Documentation Only [facility] [address] [place] [address] Juju Avila [address] [place] [phone] Social History Tobacco Use Types Packs/Day Years [...] Visit [facility] [address] [place] [place] [address] Terrance Garcia MD [address] [place] [address] [place] [address] documented as of this encounter Visit Diagnoses Not on filedocumented in this encounter Care Teams Boiling House Oiler Relationship Specialty Start Date End Date Keely Wilburn MD [address] [place] [address] PCP - General Internal Medicine 02/11/20 documented as of this encounter
--- OUTSIDE RECORDS SUMMARY | 2024-12-25 09:08 | XMS_ITS ---
Author Organization [facility] Address [address] [place] [address] Care Team Providers Care Typo Machine Operator Name Role Phone Cosmo VAZQUEZ, Keely Primary Care Provider Unavail able Rod Arthur Unavailable [phone] Mathew Boss Unavailable Unavailable REASON FOR VISIT screening Encounters Encounter Location Date Provider Diagnosis [facility] Outpatient [address] [place], [place] [phone] 09/12/2023 Rod Arthur PLAN OF TREATMENT No Information
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
--- OUTSIDE RECORDS SUMMARY | 2024-12-25 09:08 | XMS_ITS | Encounter Summary ---
Author Organization [facility] Address [address] [place] [address] Phone Care Team Providers Care Tree Specialist Name Role Phone Keely Wilburn MD Primary Care Provider + [phone] Encounter Details Date Type Department Care Team (Late Contact Info) Description 03/18/2024 Documentation Only [facility] [address] [place] [address] Juju Avila [address] [place] [phone] Social History Tobacco Use Types Packs/Day Years [...] Visit [facility] [address] [place] [address] Terrance Garcia MD [address] [place] [address] [place] [address] documented as of this encounter Visit Diagnoses Not on filedocumented in this encounter Care Teams Tree Specialist Relationship Specialty Start Date End Date Keely Wilburn MD [address] [place] [address] PCP - General Internal Medicine 02/11/20 documented as of this encounter
--- OUTSIDE RECORDS SUMMARY | 2024-12-25 09:08 | XMS_ITS | Encounter Summary ---
Author Organization [facility] Address [address] [place] [address] Phone Care Team Providers Care Pest Control Worker Name Role Phone Keely Wilburn MD Primary Care Provider + [phone] Encounter Details Date Type Department Care Team (Late Contact Info) Description 03/18/2024 Documentation Only [facility] [address] [place] [address] Juju Avila [address] [place] [phone] Social History Tobacco Use Types Packs/Day Years [...] Visit [facility] [address] [place] [address] Terrance Garcia MD [address] [place] [address] [place] [address] documented as of this encounter Visit Diagnoses Not on filedocumented in this encounter Care Teams Pest Control Worker Relationship Specialty Start Date End Date Keely Wilburn MD [address] [place] [address] PCP - General Internal Medicine 02/11/20 documented as of this encounter
--- OUTSIDE RECORDS SUMMARY | 2024-12-25 09:09 | XMS_ITS | Encounter Summary ---
Author Organization [employer] Address [address] 7t [place] [address] Care Team Providers Care Political Science Chair Name Role Phone Keely Wilburn MD Primary Care Provider + Reason for Visit * Reason Onset Date Comments VNA 12/08/2024 Encounter Details Date Type Department Care Team ([facility] st Contact Info) Description 12/08/2024 Telephone [facility] [address] [place], [place] [phone] Keely Wilburn MD [address] [place] [address] VNA Social History Tobacco Use Types Packs/Day [...] had start of care on 12/09/24 by [facility]. * Telephone Encounter - Corina Link RN - 12/08/2024 2:14 PM EST RN spoke to Christiano [phone] in regards to below message as patient was receiving VA services thru [facility]. RN was informed patient was discharged on 12/03/24 d/t being admitted to the hospital 12/02-12/05 and [facility] [place] [facility] upon discharge for PT ONLY. Christiano reports they can take patientback on for VNA services and PT if patient is discharged from [facility]. RN called daughter [phone] to inform of above message. Daughter reports she would like patientto return to [facility] services. Daughter reports she told [facility] PT to not come out as she would like to return to [facility]. Daughter advised RN would call [facility] to ensure patient is discharged and re-refer patientto [facility]. Daughter verbalized understanding. [phone] if patient is active with them and process to discharge patient to return to [facility]. RN was advised patient is NOT [...] documents to [facility]. TC returned to daughter [phone] to inform she will receive a call from [facility] once the paperwork is processed to schedule visit. Daughter verbalized understanding. Daughter to f/u PRN. * Telephone Encounter - Deanna Mathias - 12/08/2024 1:36 PM EST Tc from pt daughter requesting order for nurse visiting. No more info provided. Any questions contact Ashlyn Yakut documented in this encounter Plan of Treatment Upcoming Encounters Date Type Department Care Team (Late st Contact Info) Description 01/15/2025 10:30 AM EST Office Visit [facility] [address] [place] [phone] Keely Wilburn MD [address] [place] [address] documented as of this encounter Visit Diagnoses Not on filedocumented in this encounter Care Teams Political Science Chair Relationship Specialty Start Date End Date Keely Wilburn MD [address] [place] [address] PCP - General Family Medicine 10/27/19 [employer] 08/06/24 documented as of this encounter
--- OUTSIDE RECORDS SUMMARY | 2024-12-25 09:09 | XMS_ITS | Encounter Summary ---
Author Organization [employer] Address [address] 7[address] [place] [address] Care Team Providers Care Beauty Director Name Role Phone Keely Wilburn MD Primary Care Provider + Reason for Visit * Reason Onset Date Comments Referral 12/08/2024 order 12/08/2024 Encounter Details Date Type Department Care Team (Late st Contact Info) Description 12/08/2024 Telephone [facility] MEDICINE [address] [place], [place] [phone] Keely Wilburn MD [address] [place], [place] [phone] Referral; order Social History Tobacco Use Types [...] more info provided. Any questions contact Ashlyn Latvian documented in this encounter Plan of Treatment Upcoming Encounters Date Type Department Care Team (Late st Contact Info) Description 01/15/2025 10:30 AM EST Office Visit [facility] [address] [place] [address] Keely Wilburn MD [address] [place] [address] documented as of this encounter Visit Diagnoses Not on filedocumented in this encounter Care Teams Beauty Director Relationship Specialty Start Date End Date Keely Wilburn MD [address] [place] [address] PCP - General Family Medicine 10/27/19 [employer] 08/06/24 documented as of this encounter
--- OUTSIDE RECORDS SUMMARY | 2024-12-25 09:09 | XMS_ITS | Encounter Summary ---
Author Organization [employer] Address [address] [facility] 7t [place] [address] Care Team Providers Care Hr Consultant Name Role Phone Keely Wilburn MD Primary Care Provider + Reason for Visit * Reason Onset Date Comments Durable Medical Equipment 12/08/2024 DME Re quest: Hand Held Shower Head Encounter Details Date Type Department Care Team (Late st Contact Info) Description 12/08/2024 Telephone [facility] [address] [place], [place] [phone] Keely Wilburn MD [address] [place] [address] Durable Medical Equipment (DME Request: Hand Held [...] requesting hose hand held shower. Any questions [phone] Bulgarian documented in this encounter Plan of Treatment Upcoming Encounters Date Type Department Care Team (Late st Contact Info) Description 01/15/2025 10:30 AM EST Office Visit [facility] [address] [place] [address] Keely Wilburn MD [address] [place] [address] documented as of this encounter Visit Diagnoses Not on filedocumented in this encounter Care Teams Hr Consultant Relationship Specialty Start Date End Date Keely Wilburn MD [address] [place] [address] PCP - General Family Medicine 10/27/19 [employer] 08/06/24 documented as of this encounter
--- OUTSIDE RECORDS SUMMARY | 2024-12-25 09:09 | XMS_ITS | Encounter Summary ---
Author Organization [employer] Address [address] [place] [address] Care Team Providers Care Hand Winder Name Role Phone Keely Wilburn MD Primary Care Provider + Encounter Details Date Type Department Care Team (Late st Contact Info) Description 12/19/2024 Orders Only [facility] External Provider, [facility] Social History Tobacco Use Types Packs/Day Years [...] as of this encounter Miscellaneous Notes * Result Encounter Note - Keely Wilburn MD - 12/19/2024 10:57 AM EST Labs on 12/19/2024 show increased PTH and elevated inflammatory markers. Unclear who ordered this test, please call the lab and check for them either at the ED or renal and see if they follow-up on it. documented in this encounter Plan of Treatment Upcoming Encounters Date Type Department Care Team (Late st Contact Info) Description 01/15/2025 10:30 AM EST Office Visit [facility] [address] [place] [address] Keely Wilburn MD [address] [place], [place] [phone] documented as of this encounter Procedures Procedure Name Priority Date/Time Associated Diagnosis Comments CBC WITH AUTO DIFFERENTIAL Routine 12/19/2024 11:00 AM EST SED RATE BY MODIFIED WESTERGREN Routine 12/19/2024 11:00 AM EST C-REACTIVE PROTEIN Routine 12/19/2024 11 :00 AM EST PTH, INTACT WITHOUT CALCIUM Routine 12/19/2024 11:00 AM EST MAGNESIUM Routine 12/19/2024 11:00 AM EST COMPREHENSIVE METABOLIC PANEL Routine 12/19/2024 11:00 AM EST XR HAND WRIST RT Routine 12/19/2024 10:2 3 AM EST XR HAND WRIST LT Routine 12/19/2024 10:2 3 AM EST documented in this encounter Results * (ABNORMAL) PTH, Intact Without Calcium (12/19/2024 11:00 AM EST) Parathyroid Hormone, Intact 125.4(H) 8.7 - 77.1 pg/mL [facility] 12/19/2024 11:0 0 AM EST 12/19/2024 11:01 AM EST Generic External Data Provider LAB BLOOD ORDERAB LES Final Result Performing Organization Address [facility] de Phone Number [facility] [address] [place] [phone] * (ABNORMAL) Sed Rate by Modified rUbanergren (12/19/2024 11:00 AM EST) Erythrocyte Sedimentation Rate 53(H) 0 - 20 MM/HR [facility] Comment:Patients with polycy themia and many hemoglobin abnormalitiesmay have depressed sed rates whereas patients with anemiamay have elevated sed rates. 12/19/2024 11:0 0 AM EST 12/19/2024 11:01 AM EST Generic External Data Provider LAB BLOOD ORDERAB LES Final Result Performing Organization Address [facility] Co de Phone Number [facility] [address] [place] [phone] * (ABNORMAL) C-reactive Protein (12/19/2024 11:00 AM EST) C Reactive Protein 0.55(H) < or = 0.50 mg/dL [facility] 12/19/2024 11:0 0 AM EST 12/19/2024 11:01 AM EST us Generic External Data Provider LAB BLOOD ORDERAB LES Final Result Performing Organization Address [facility] Co de Phone Number [facility] [address] [place] [phone] * Magnesium (12/19/2024 11:00 AM EST) Magnesium 1.6 1.6 - 2.6 mg/dL [facility] 12/19/2024 11:0 0 AM EST 12/19/2024 11:01 AM EST Generic External Data Provider LAB BLOOD ORDERAB LES Final Result Performing Organization Address [facility] Phone Number [facility] [address] [place] [phone] * (ABNORMAL) Comprehensive Metabolic Panel (12/19/2024 11:00 AM EST) Sodium 139 135 - 145 mmol/L [facility] Potassium 4.2 3.3 - 5.1 mmol/L [facility] Chloride 109(H) 96 - 108 mmol/L [facility] Carbon Dioxide 24 22 - 29 mmol/L [facility] Anion Gap 10(L) 12 - 20 [facility] Urea Nitrogen (BUN) 32(H) 9 - 16 mg/dL [facility] Creatinine, Serum 1.06 0.5 - 1.4 mg/dL [facility] Estimated Glomerular Filt Rate 50 [facility] Comment:Chronic Kidney Disea se: Estimated GFR < 60 mL/min/1.34m0Cgqkvk Kidney Disease: Estimated GFR < 15 mL/min/1.73m2 Glucose 111 60 - 115 mg/dL [facility] Calcium 9.2 8.4 - 10.2 mg/dL [facility] Bilirubin, Total 0.4 0.0 - 1.0 mg/dL [facility] Aspartate Amino Transferase 22 5 - 31 U/L [facility] Alanine Aminotransferase 11 0 - 31 U/L [facility] Total Protein 7.7 6.5 - 8.0 g/dL [facility] Albumin Level 4.0 3.5 - 5.0 g/dL [facility] Alkaline Phosphatase 55 39 - 117 U/L [facility] 12/19/2024 11:0 0 AM EST 12/19/2024 11:01 AM EST us Generic External Data Provider LAB BLOOD ORDERAB LES Final Result [facility] [address] [place], [place] [phone] * (ABNORMAL) CBC auto differential (12/19/2024 11:00 AM EST) White Blood Count 7.3 4.8 - 10.8 X10*3/uL [facility] Red Blood Count 3.73(L) 4.20 - 5.50 X10*6/uL [facility] Hemoglobin 10.3(L) 12.0 - 16.0 g/dl [facility] Hematocrit 32.4(L) 37.0 - 47.0 % [facility] Mean Corpuscular Volume 86.9 80.0 - 98.0 fL [facility] Mean Corpuscular Hemoglobin 27.6 27.0 - 33.0 pg [facility] Mean Corpuscular HGB Conc 31.8 31.0 - 35.0 g/dl [facility] Red Cell Distribution Width 13.2 11.0 - 16.0 % [facility] Platelet Count 237 160 - 400 X10*3/uL [facility] Mean Platelet Volume 11.7 9.4 - 12.3 fL [facility] Neutrophils Percent Auto 45.1 45 - 73 % [facility] Imm Gran Pct Auto 0.3 0.0 - 0.4 % [facility] Lymphocytes Percent Auto 41.9(H) 20 - 40 % [facility] Monocytes Percent Auto 10.2 2 - 11 % [facility] Eosinophils Percent Auto 2.1 0 - 4 % [facility] Basophils Percent Auto 0.4 0 - 2 % [facility] NRBC Pct Auto 0.0 0.0 - 0.2 /100WBC [facility] Neutrophils Absolute Auto 3.3 2.0 - 8.3 x10*3/uL [facility] Imm Gran Abs Auto 0.02 0.00 - 0.03 X10*3/uL [facility] Lymphocytes Absolute Auto 3.0 1.2 - 4.9 X10*3/uL [facility] Monocytes Absolute Auto 0.7 0.1 - 1.2 X10*3/uL [facility] Eosinophils Absolute Auto 0.2 0.0 - 0.4 X10*3/uL [facility] Basophils Absolute Auto 0.0 0.0 - 0.2 X10*3/uL [facility] NRBC Abs Auto 0.000 0.0 - 0.012 X10*3/uL [facility] 12/19/2024 11:0 0 AM EST 12/19/2024 11:01 AM EST us Generic External Data Provider LAB BLOOD ORDERAB LES Final Result Performing Organization Address City/State/[facility] Co de Phone Number [facility] [address] [place] [phone] * XR HAND WRIST LT (12/19/2024 10:23 AM EST) Anatomical Region Laterality Modality Abdomen Radiographic Marilyn ging 12/19/2024 10:2 3 AM EST Narrative 12/19/2024 11:09 AM EST ? [facility] ?[address] ?[place] [address] ?XRay Report ? Signed ? Patient: Landeros,Adrianne ?MR#: [id number] ? : 1950 ?Acct:[id number] ? Age/Sex: 74 / F ?ADM Date: 02/07/25 ? Loc: HO.XRAY ? Attending Dr: Donna Albert MD ? Ordering Physician: Donna Albert MD ?? Date of Service: 12/19/24 ?? Procedure(s): XR hand wrist LT ?? Accession Number(s): [id number] ? cc: Donna Albert MD; Keely Wilburn [...] ??Rod Todd MD ??12/19/2024 11:07 AM EST ? Dictated By: ?Rod Todd MD ? Signed By: ?<Electronically signed by Rod Todd MD in OV> ?12/19/24 1107 ? DD/ 1023 ? TD/TT: 12/19/24 1035 ? Non Destructive Testing Supervisor: ? Procedure Note Chrissy, Image - 12/19/2024 [place] [address] XRay Report Signed Patient: Adrianne LanderosMR#: [id number] : 8Acct:[id number] Age/Sex: 74 / FADM Date: 12/19/24 Loc: HO.LEXY Attending Dr: Donna Albert MD Ordering Physician: Donna Albert MD Date of Service: 12/19/24 Procedure(s): XR hand wrist LT Accession Number(s): [id number] cc: Donna Albert MD; Keely Wilburn MD [...] 12/19/24 1107 DD/ 1023 TD/TT: 12/19/24 1035 Non Destructive Testing Supervisor: [facility] External Provider IMG XR PROCEDURES Final Result * XR HAND WRIST RT (12/19/2024 10:23 AM EST) Anatomical Region Laterality Modality Abdomen Radiographic Marilyn ging 12/19/2024 10:2 3 AM EST Narrative 12/19/2024 10:56 AM EST ? [facility] ?[address] ?[place] [address] ?XRay Report ? Signed ? Patient: Landeros,Adrianne ?MR#: [id number] ? : 1950 ?Acct:[id number] ? Age/Sex: 74 / F ?ADM Date: 12/19/24 ? Loc: HO.XRAY ? Attending Dr: Donna Albert MD ? Ordering Physician: Donna Albert MD ?? Date of Service: 12/19/24 ?? Procedure(s): XR hand wrist RT ?? Accession Number(s): [id number] ? cc: Donna Albert MD; Keely Wilburn [...] by Car Porras MD in OV> ? 12/19/241053 ? DD/ 1023 ? TD/TT: 12/19/24 1035 ? Non Destructive Testing Supervisor: ? Procedure Note Chrissy, Image - 12/19/2024 [place] [address] XRay Report Signed Patient: Adrianne LanderosMR#: [id number] : 1950cct:[id number] Age/Sex: 74 / FADM Date: 12/19/24 Loc: HO.LEXY Attending Dr: Donna Albert MD Ordering Physician: Donna Albert MD Date of Service: 12/19/24 Procedure(s): XR hand wrist RT Accession Number(s): [id number] cc: Donna Albert MD; Keely Wilburn MD [...] 12/19/24 1054 DD/ 1023 TD/TT: 12/19/24 1035 Non Destructive Testing Supervisor: [facility] External Provider IMG XR PROCEDURES Final Result documented in this encounter Visit Diagnoses Not on filedocumented in this encounter Care Teams Hand Winder Relationship Specialty Start Date End Date Keely Wilburn MD [address] [place] [phone] PCP - General Family Medicine 10/27/19 [employer] 08/06/24 documented as of this encounter
--- OUTSIDE RECORDS SUMMARY | 2024-12-25 09:09 | XMS_ITS | Encounter Summary ---
Author Organization [employer] Address [address] [place] [address] Care Team Providers Care Steam Tank Operator Name Role Phone Keely Wilburn MD Primary Care Provider + Reason for Visit * Reason Onset Date Comments Chart prep 12/17/2024 Encounter Details Date Type Department Care Team ([facility] st Contact Info) Description 12/17/2024 Telephone [facility] [address] [place], [place] [phone] Keely Wilburn MD [address] [place] [phone] Chart prep Social History Tobacco Use Types [...] Description 01/15/2025 10:30 AM EST Office Visit [facility] [address] [place] [phone] Keely Wilburn MD [address] [place] [phone] documented as of this encounter Visit Diagnoses Not on filedocumented in this encounter Care Teams Steam Tank Operator Relationship Specialty Start Date End Date Keely Wilburn MD [address] [place] [phone] PCP - General Family Medicine 10/27/19 [employer] 08/06/24 documented as of this encounter
--- OUTSIDE RECORDS SUMMARY | 2024-12-25 09:09 | XMS_ITS | Encounter Summary ---
Author Organization [employer] Address [address] [place] [address] Care Team Providers Care Nurse Esthetician Name Role Phone Keely Wilburn MD Primary Care Provider + Encounter Details Date Type Department Care Team (Late st Contact Info) Description 12/23/2024 Telephone [facility] [address] [place] [address] Shelly Muñoz RN Social History Tobacco Use Types Packs/Day Years [...] encounter Miscellaneous Notes * Telephone Encounter - Shelly Muñoz RN - 12/23/2024 4:02 PM EST Call placed to patient regarding message below. Will re-task for re-[place] [id number] Herm[place] ----- Message from Keely Wilburn MD sent at 12/23/2024 3:31 PM EST ----- Please call patient to make sure that her MRI of the abdomen that was ordered at the hospital is already done or they already have an appointment for it. This is for follow-up on some pancreatic lesions that were found during hospitalization. documented in this encounter Plan of Treatment Upcoming Encounters Date Type Department Care Team (Late st Contact Info) Description 01/15/2025 10:30 AM EST Office Visit [facility] [address] [place] [phone] Keely Wilburn MD [address] [place] [phone] documented as of this encounter Visit Diagnoses Not on filedocumented in this encounter Care Teams Nurse Esthetician Relationship Specialty Start Date End Date Keely Wilburn MD [address] [place] [phone] PCP - General Family Medicine 10/27/19 [employer] 08/06/24 documented as of this encounter
--- OUTSIDE RECORDS SUMMARY | 2024-12-25 09:09 | XMS_ITS | Clinical Summary ---
Author Organization [employer] Address [address] [facility] 7[address] [place] [address] Care Team Providers Care Consular Officer Name Role Phone Keely Wilburn MD Primary [...] mellitus with other specified complication, unspecified whether fci insulin use (CMS/[facility]ER[facility]) INJECT 18 UNITS UNDER THE SKIN ONCE DAILY (BULK) 15 mL Active cholecalciferol (Vitamin D-3) 1.25 MG (80352 UT) capsule Take 1 capsule (1.25 mg) [...] 11 024 Active Lancets (OneTouch Delica Plus [id number]) miscIndications :Type 2 diabetes mellitus with diabetic nephropathy, with long-term current use of insulin (CMS/[facility]) USE TO TEST BLOOD SUGAR THREE TIMES [...] Continuous Glucose Sensor (FreeStyle Kelly 2 Sensor) muscogee Use as directed Active Trulicity 3 MG/0.5ML [...] hyperglycemia, with long-term current use of insulin ([facility]ER[facility]) INJECT 1.5MG UNDER THE SKIN ONCE WEEKLY [...] 05/24/2023 Overview (02/07/2024): Colonoscopy on 02/06/24 at [facility] Assessment & Plan (07/28/2023 7:53 PM EDT): [...] knees significant risk of fall, had a PAID SEARCH MARKETING ANALYST for assistance ADLs. Needs assistance and reminders [...] requested refill of Trulicity be sent to [facility] as she had difficulty picking it up at local [facility] due to supply issues Assessment & Plan [...] Plan (05/24/2023 11:18 AM EDT): r/o hypoglycemia PAID SEARCH MARKETING ANALYST will monitor symptoms of dizziness and pt [...] Encounters Date Type Department Care Team Description 12/23/[address] [address] Corina Link, RN Care Coordination 12/23/[address] [address] Corina Link, KELLY Error (VOID this visit) 12/23/[address] [facility] [address] [place] [phone] Shelly Muñoz RN 12/19/2024 Orders Only [facility] External Provider, [facility] 12/18/[address] [address] Keely Wilburn MD Hospital Follow-up 12/17/[address] [address] Keely Wilburn MD Chart prep 12/08/[address] [address] Keely Wilburn MD VNA 12/08/2024 Patient Outreach [address] [address] Keely Wilburn MD Transition Of Care (Tcm) (HDF scheduled and SDOH screening negative and Tobacco screening negative) 12/08/[address] [address] Keely Wilburn MD Referral; order 12/08/[address] [address] Keely Wilburn MD Durable Medical Equipment (DME Request: Hand Held Shower Head) 12/08/[address] [phone] Keely Wilburn MD Hospital Follow-up 12/05/[address] [address] Keely Wilburn MD ORder 11/14/[address] [facility] [place] [address] Keely Wilburn MD January recall 11/14/[address] [facility] [address] Keely Wilburn MD Durable Medical Equipment (Home Care Delivered Form: Incontinence Supplies) 10/16/[address] [facility] [place] [place] [address] Keely Wilburn MD Type 2 diabetes mellitus with diabetic nephropathy, with long-term current use of insulin ([facility]/HCC) 10/15/2024 Telephone [facility] [place] [address] Corina Link, cabin worker Question 10/14/2024 9:15 AM EST Office Visit [facility] [address] Keely Wilburn MD Type 2 diabetes mellitus with diabetic nephropathy, with long-term current use of insulin (CMS/HCC) (Primary Dx); Primary hypertension; Stage 3a chronic kidney disease (CMS/HCC); Vitamin D deficiency; Mixed stress and urge urinary incontinence 10/14/2024 Telephone [facility] [address] Keely Wilburn MD Durable Medical Equipment 10/14/2024 Travel 10/07/2024 Orders Only GENERIC EXTERNAL DATA DEPARTMENT Provider, Generic External Data 10/03/2024 Telephone [facility] [address] Keely Wilburn MD Durable Medical Equipment 10/03/2024 Telephone [facility] [address] Keely Wilburn MD Medication Question 10/01/[address] [facility] [place] [address] Keely Wilburn MD Primary hypertension 09/29/2024 11:30 AM EST Clinical Support [facility] [address] Valerie Steen RN Primary hypertension 09/29/[address] [facility] [address] [place] [address] Valerie Steen RN DME request 09/29/2024 Travel 09/25/[address] [facility] [address] [place] [address] Keely Wilburn MD Primary hypertension from Last 3 Months Immunizations Name Administration [...] Description 01/15/2025 10:30 AM EST Office Visit [facility] [address] [place] [address] Keely Wilburn MD [address] [place] [address] Health Maintenance Due Date Last Done Comments [...] Procedure Name Priority Date/Time Associated Diagnosis Comments PTH, INTACT WITHOUT CALCIUM Routine 12/19/2024 11:00 AM EST SED RATE BY MODIFIED WESTERGREN Routine 12/19/2024 11:00 AM EST C-REACTIVE PROTEIN Routine 12/19/2024 11 :00 AM EST MAGNESIUM Routine 12/19/2024 11:00 AM EST COMPREHENSIVE METABOLIC PANEL Routine 12/19/2024 11:00 AM EST CBC WITH AUTO DIFFERENTIAL Routine 12/19/2024 11:00 AM EST XR HAND WRIST LT Routine 12/19/2024 10:2 3 AM EST XR HAND WRIST RT Routine 12/19/2024 10:2 3 AM EST POCT GLYCATED HEMOGLOBIN, TOTAL Routine 10/14/2024 9:16 AM EST Type 2 diabetes mellitus with diabetic nephropathy, with long-term current use of insulin ([facility]) POCT GLUCOSE Routine 10/14/2024 9:07 AM EST Type 2 diabetes mellitus with diabetic nephropathy, with long-term current use of insulin ([facility]) GLUCOSE, WHOLE BLOOD Routine 10/07/2024 9:52 AM EST BI MAMMOGRAM SCREENING TOMOSYNTHESIS BILATERAL Routine 10/07/2024 8:50 AM EST LIPID PANEL WITH REFLEX TO [...] Relevant to Health Maintenance Results * (ABNORMAL) CBC auto differential (12/19/2024 11:00 AM EST) White Blood Count 7.3 4.8 - 10.8 X10*3/uL [facility] Red Blood Count 3.73(L) 4.20 - 5.50 X10*6/uL [facility] Hemoglobin 10.3(L) 12.0 - 16.0 g/dl [facility] Hematocrit 32.4(L) 37.0 - 47.0 % [facility] Mean Corpuscular Volume 86.9 80.0 - 98.0 fL [facility] Mean Corpuscular Hemoglobin 27.6 27.0 - 33.0 pg [facility] Mean Corpuscular HGB Conc 31.8 31.0 - 35.0 g/dl [facility] Red Cell Distribution Width 13.2 11.0 - 16.0 % [facility] Platelet Count 237 160 - 400 X10*3/uL [facility] Mean Platelet Volume 11.7 9.4 - 12.3 fL [facility] Neutrophils Percent Auto 45.1 45 - 73 % [facility] Imm Gran Pct Auto 0.3 0.0 - 0.4 % [facility] Lymphocytes Percent Auto 41.9(H) 20 - 40 % [facility] Monocytes Percent Auto 10.2 2 - 11 % [facility] Eosinophils Percent Auto 2.1 0 - 4 % [facility] Basophils Percent Auto 0.4 0 - 2 % [facility] NRBC Pct Auto 0.0 0.0 - 0.2 /100WBC [facility] Neutrophils Absolute Auto 3.3 2.0 - 8.3 x10*3/uL [facility] Imm Gran Abs Auto 0.02 0.00 - 0.03 X10*3/uL [facility] Lymphocytes Absolute Auto 3.0 1.2 - 4.9 X10*3/uL [facility] Monocytes Absolute Auto 0.7 0.1 - 1.2 X10*3/uL [facility] Eosinophils Absolute Auto 0.2 0.0 - 0.4 X10*3/uL [facility] Basophils Absolute Auto 0.0 0.0 - 0.2 X10*3/uL [facility] NRBC Abs Auto 0.000 0.0 - 0.012 X10*3/uL [facility] 12/19/2024 11:0 0 AM EST 12/19/2024 11:01 AM EST us Generic External Data Provider LAB BLOOD ORDERAB LES Final Result Performing Organization Address [facility] Co de Phone Number [facility] [address] [place] [phone] * (ABNORMAL) Sed Rate by Modified Julianaren (12/19/2024 11:00 AM EST) Erythrocyte Sedimentation Rate 53(H) 0 - 20 MM/HR [facility] Comment:Patients with polycy themia and many hemoglobin abnormalitiesmay have depressed sed rates whereas patients with anemiamay have elevated sed rates. 12/19/2024 11:0 0 AM EST 12/19/2024 11:01 AM EST us Generic External Data Provider LAB BLOOD ORDERAB LES Final Result [facility] [address] [place] [phone] * (ABNORMAL) C-reactive Protein (12/19/2024 11:00 AM EST) C Reactive Protein 0.55(H) < or = 0.50 mg/dL [facility] 12/19/2024 11:0 0 AM EST 12/19/2024 11:01 AM EST us Generic External Data Provider LAB BLOOD ORDERAB LES Final Result Performing Organization Address [facility] Co de Phone Number [facility] [address] [place] [phone] * (ABNORMAL) PTH, Intact Without Calcium (12/19/2024 11:00 AM EST) Parathyroid Hormone, Intact 125.4(H) 8.7 - 77.1 pg/mL [facility] 12/19/2024 11:0 0 AM EST 12/19/2024 11:01 AM EST us Generic External Data Provider LAB BLOOD ORDERAB LES Final Result Performing Organization Address [facility] Co de Phone Number [facility] [address] [place] [phone] * Magnesium (12/19/2024 11:00 AM EST) Magnesium 1.6 1.6 - 2.6 mg/dL [facility] 12/19/2024 11:0 0 AM EST 12/19/2024 11:01 AM EST Generic External Data Provider LAB BLOOD ORDERAB LES Final Result Performing Organization Address [facility] Co de Phone Number [facility] [address] [place] [phone] * (ABNORMAL) Comprehensive Metabolic Panel (12/19/2024 11:00 AM EST) Sodium 139 135 - 145 mmol/L [facility] Potassium 4.2 3.3 - 5.1 mmol/L [facility] Chloride 109(H) 96 - 108 mmol/L [facility] Carbon Dioxide 24 22 - 29 mmol/L [facility] Anion Gap 10(L) 12 - 20 [facility] Urea Nitrogen (BUN) 32(H) 9 - 16 mg/dL [facility] Creatinine, Serum 1.06 0.5 - 1.4 mg/dL [facility] Estimated Glomerular Filt Rate 50 [facility] Comment:Chronic Kidney Disea se: Estimated GFR < 60 mL/min/1.81v7Prjntz Kidney Disease: Estimated GFR < 15 mL/min/1.73m2 Glucose 111 60 - 115 mg/dL [facility] Calcium 9.2 8.4 - 10.2 mg/dL [facility] Bilirubin, Total 0.4 0.0 - 1.0 mg/dL [facility] Aspartate Amino Transferase 22 5 - 31 U/L [facility] Alanine Aminotransferase 11 0 - 31 U/L [facility] Total Protein 7.7 6.5 - 8.0 g/dL [facility] Albumin Level 4.0 3.5 - 5.0 g/dL [facility] Alkaline Phosphatase 55 39 - 117 U/L [facility] 12/19/2024 11:0 0 AM EST 12/19/2024 11:01 AM EST us Generic External Data Provider LAB BLOOD ORDERAB LES Final Result [facility] [address] [place], [place] [phone] * XR HAND WRIST RT (12/19/2024 10:23 AM EST) Anatomical Region Laterality Modality Abdomen Radiographic Marilyn ging 12/19/2024 10:2 3 AM EST Narrative 12/19/2024 10:56 AM EST ? [facility] [facility] ?[address] ?[place] [address] ?XRay Report ? Signed ? Patient: Landeros,Adrianne ?MR#: [id number] ? : 1950 ?Acct:[id number] ? Age/Sex: 74 / F ?ADM Date: 12/19/24 ? Loc: HO.XRAY ? Attending Dr: Donna Albert MD ? Ordering Physician: Donna Albert MD ?? Date of Service: 12/19/24 ?? Procedure(s): XR hand wrist RT ?? Accession Number(s): [id number] ? cc: Donna Albert MD; Keely Wilburn [...] DD/ 1023 ? TD/TT: 12/19/24 1035 ? Telemarketing Agent: ? Procedure Note Chrissy, Image - 12/19/[address] [address] MELIAay Report Signed Patient: Adrianne LanderosMR#: [id number] : 8Acct:[id number] Age/Sex: 74 / FADM Date: 12/19/24 Loc: MIKAYLA Attending Dr: Donna Albert MD Ordering Physician: Donna Albert MD Date of Service: 12/19/24 Procedure(s): XR hand wrist RT Accession Number(s): [id number] cc: Donna Albert MD; Keely Wilburn MD [...] Car Crowe MD 12/19/2024 10:54 AM EST RP Dictated By: Car Madden MD Signed By: <Electronically signed by Car Porras MDin OV> 12/19/24 1054 DD/ 1023 TD/TT: 12/19/24 1035 Telemarketing Agent: [facility] External Provider IMG XR PROCEDURES Final Result * XR HAND WRIST LT (12/19/2024 10:23 AM EST) Anatomical Region Laterality Modality Abdomen Radiographic Marilyn ging 12/19/2024 10:2 3 AM EST Narrative 12/19/2024 11:09 AM EST ? [facility] ?[address] ?[place] [address] ?XRay Report ? Signed ? Patient: Landeros,Adrianne ?MR#: [id number] ? : 1950 ?Acct:[id number] ? Age/Sex: 74 / F ?ADM Date: 02/07/25 ? Loc: HO.XRAY ? Attending Dr: Donna Albert MD ? Ordering Physician: Donna Albert MD ?? Date of Service: 12/19/24 ?? Procedure(s): XR hand wrist LT ?? Accession Number(s): [id number] ? cc: Donna Albert MD; Keely Wilburn [...] DD/ 1023 ? TD/TT: 12/19/24 1035 ? Telemarketing Agent: ? Procedure Note Donanitater, Image - 12/19/2024 [place] [address] MELIAay Report Signed Patient: Eliza Landeros#: [id number] : 8Acct:[id number] Age/Sex: 74 / FADM Date: 12/19/24 Loc: MIKAYLA Attending Dr: Donna Albert MD Ordering Physician: Donna Albert MD Date of Service: 12/19/24 Procedure(s): XR hand wrist LT Accession Number(s): [id number] cc: Donna Albert MD; Keely Wilburn MD [...] 12/19/24 1107 DD/ 1023 TD/TT: 12/19/24 1035 Telemarketing Agent: [facility] External Provider IMG XR PROCEDURES Final Result * (ABNORMAL) POCT HGB A1C (10/14/2024 9:16 AM EST) Hemoglobin A1C 7.0(A) 4.0 - 6.0 % QC Media Lot # [id number] Lot# Expiration Date , Blood 10/14/2024 9:16 AM EST Keely Wilburn MD POINT OF CARE TEST ENTER /EDIT ORDERABLES Final Result * POCT Glucose (10/14/2024 9:07 AM EST) Glucose Blood, POC 199 60 - 200 mg/dL QC Media Lot # [id number] Lot# Expiration Date 6077,025 Blood Capillary blood specimen / Unknown 10/14/2024 9:[address] [facility] Keely Wilburn MD POINT OF CARE TEST ENTER /EDIT ORDERABLES Final Result * (ABNORMAL) Glucose, Whole Blood (10/07/2024 9:52 AM EST) Glucose, Whole Blood 148(H) 60 - 115 mg/dL [facility] Comment:METER #: [id number] Testing performed in the Endocrinology Department [address] , [address], [place]. 10/07/2024 9:52 AM EST 10/07/2024 9:57 AM EST us Generic External Data Provider LAB BLOOD ORDERAB LES Final Result Performing Organization Address [facility]/State/ZIP Co de Phone Number [facility] [address] [facility] [place] [phone] * BI Mammogram Screening Tomosynthesis Bilateral (10/07/2024 8:50 AM EST) Anatomical Region Laterality Modality Breast Bilateral Mammography 10/07/2024 8:50 AM EST Narrative 10/16/2024 9:41 AM EST ? [facility] ? [address] ?[place] [address] ? Mammography Report ? Signed ? Patient: Landeros,Adrianne ?MR#: [id number] ? : 1950 ?Acct:[id number] ? Age/Sex: 74 / F ?ADM Date: 10/07/24 ? Loc: HO.MAMMO ? Attending Dr: Keely Wilburn MD ? Ordering Physician: Keely Wilburn MD ?Results: 1Ne ?? gative ? Date of Service: 10/07/24 ?Follow Up: 1 Year From Orig ?? inal Mammogram ? Procedure(s): MM tomosynthesis screening BI ?? Accession Number(s): [id number] ? cc: Keely Wilburn MD ? EXAMINATION: [...] ??10/16/2024 09:38 AM EST ? Dictated By: ?Marylou Goldstein DO ? Signed By: ?<Electronically signed by Marylou Goldstein, DO in OV> ? 10/16/24 0938 ? DD/ 0850 ? TD/TT: 10/07/24 0905 ? Telemarketing Agent: ? Procedure Note Kaitlinter, Image - 10/16/2024 [facility] [address] [place] [address] [place] [address] Mammography Report Signed Patient: Adrianne Landeros#: [id number] : 8Acct:[id number] Age/Sex: 74 / FADM Date: 10/07/24 Loc: HO.MAMMO Attending Dr: Keely Wilburn MD Ordering Physician: Keely Wilburnesults: 1Ne gative Date of Service: 10/07/24Follow Up: 1 Year From Orig ina Mammogram Procedure(s): MM tomosynthesis screening BI Accession Number(s): [id number] cc: Keely Wilburn MD EXAMINATION: MM SCREENING [...] signed by Marylou Goldstein DO in OV> 10/16/2438 DD/ TD/TT: 10/07/24 09 Telemarketing Agent: Keely Wilburn MD [facility] PROCEDURES Edited Result - Final * (ABNORMAL) Lipid Panel with Reflex to Direct LDL (08/04/2024 9:55 AM EDT) Triglycerides 174(H) <150 mg/dL [facility] Comment:Desirable Triglyceri de: less than 150 mg/dLBorderline High Triglyceride 150-199 mg/dLHigh Triglyceride: 200-499 mg/dLVery High Triglyceride: greater than or equal to 5OO mg/dL Cholesterol 145 <200 mg/dL [facility] Comment:Desirable Cholestero l: less than 200 mg/dLBorderline High Cholesterol: 200-239 mg/dLHigh Cholesterol: greater than 239 mg/dL LDL Cholesterol Calculated 68 <100 mg/dL [facility] Comment:Desirable LDL: less than 100 mg/dLNear Optimal/Above Optimal LDL: 110- 129 mg/dLBorderline High LDL: 130-159 mg/dLHigh LDL: 160-189 mg/dLVery High LDL: greater than or equal to 190 mg/dL HDL Cholesterol 43 >40 mg/dL [facility] Comment:Desirable HDL: great er than 40 mg/dL Note: This HDL assay may give artificially low results in patients with liver disease. Blood 08/04/2024 9:55 AM EDT 08/04/2024 2:27 PM EDT us Keely Wilburn MD LAB BLOOD ORDERABLES Fin al Result Performing Organization Address [facility] Co de Phone Number [facility] [address] [place] [phone] * Hepatitis C Antibody with Reflex to HCV, RNA, Quantitative, Real-Time PCR (05/16/2024 11:17 AM EDT) Hepatitis C Antibody Nonreactive Nonreactive [facility] Comment:Antibodies to HCV no t detected; does not exclude early acuteHCV infection. Blood Venous blood specimen / Unknown 05/16/2024 11:17 AM EDT 05/16/2024 1:09 PM EDT us Anusha Real MD LAB BLOOD ORDERABLES Final Res ult Performing Organization Address [facility] Co de Phone Number [facility] [address] [place] [phone] * (ABNORMAL) Hm Colonoscopy (02/06/2024) Colonoscopy Abnormal( A) Normal [facility] Comment:Tubular adenoma; neg ative for high grade dysplasia and carcinoma us Keely Wilburn MD HEALTH MAINTENANCE Final Result Performing Organization Address [facility] Co de Phone Number [facility] [address] [place] [phone] * OCCULT BLOOD STOOL X3 (11/23/2019 3:00 PM EST) OCCULT BLOOD STOOL-1 NEG NEG [facility] OCCULT BLOOD STOOL-1 DATE 11/20/2019 [facility] OCCULT BLOOD STOOL-2 NEG NEG [facility] OCCULT BLOOD STOOL-2 DATE 11/21/2019 [facility] OCCULT BLOOD STOOL-3 NEG NEG [facility] OCCULT BLOOD STOOL-3 DATE 11/23/2019 [facility] 11/23/2019 3:00 PM EST us Keely Wilburn MD HISTORICAL/NON ORDERABLE LABS Final Result Performing Organization Address City/State/[facility] Co de Phone Number [facility] [address] from Last 3 Months or Most Recently Relevant to Health Maintenance Insurance [facility] Care Teams Consular Officer Relationship Specialty Start Date End Date Keely Wilburn MD [address] [place] [address] PCP - General Family Medicine 10/27/19 Mister Bell 08/06/24
--- OUTSIDE RECORDS SUMMARY | 2024-12-25 09:09 | XMS_ITS | Encounter Summary ---
Author Organization [employer] Address [address] [facility] [address]t [place] [address] Care Team Providers Care Laboratory Chemist Name Role Phone Keely Wilburn MD Primary Care Provider + Reason for Visit * Reason Onset Date Comments Error (VOID this visit) 12/23/2024 Encounter Details Date Type Department Care Team (Late st Contact Info) Description 12/23/2024 Telephone [facility] [address] [place], [place] [phone] Corina Link, RN [address] [place] [address] Error (VOID this visit) Social History Tobacco Use Types Packs/Day Years [...] EST Office Visit [facility] [address] [place] [phone] Keely Wilburn MD [address] [place] [phone] documented as of this encounter Visit Diagnoses Not on filedocumented in this encounter Care Teams Laboratory Chemist Relationship Specialty Start Date End Date Keely Wilburn MD [address] [place] [phone] PCP - General Family Medicine 10/27/19 AR[place]O 08/06/24 documented as of this encounter
--- OUTSIDE RECORDS SUMMARY | 2024-12-25 09:09 | XMS_ITS | Encounter Summary ---
Author Organization [employer] Address [address] [facility] [address]t [place] [address] Care Team Providers Care Driller Portable Name Role Phone Keely Wilburn MD Primary Care Provider + Reason for Visit * Reason Onset Date Comments Hospital Follow-up 12/08/2024 Encounter Details Date Type Department Care Team ([facility] st Contact Info) Description 12/08/2024 Telephone [facility] [address] [place], [place] [phone] Keely Wilburn MD [address] [place], [place] [phone] Hospital Follow-up Social History Tobacco Use Types [...] pt daughter requesting a HDF appt. Hospital: [place], [place] Date of admission: 12/02 Discharge date: 12/05 Diagnosed: Diarrhea, Vomiting, Abdominal Pain, Chest Pain, Dizziness *Send message to [place] Clinical Care Coordinators documented in this encounter Plan of Treatment Upcoming Encounters Date Type Department Care Team (Late st Contact Info) Description 01/15/2025 10:30 AM EST Office Visit [facility] [address] [place] [phone] Keely Wilburn MD [address] [place] [address] documented as of this encounter Visit Diagnoses Not on filedocumented in this encounter Care Teams Driller Portable Relationship Specialty Start Date End Date Keely Wilburn MD [address] [place] [phone] PCP - General Family Medicine 10/27/19 Tempolib 08/06/24 documented as of this encounter
--- OUTSIDE RECORDS SUMMARY | 2024-12-25 09:09 | XMS_ITS | Encounter Summary ---
Author Organization [employer] Address [id number] [place] [phone] Care Team Providers Care Patternmaker Apprentice Wood Name Role Phone Keely Wilburn MD Primary Care Provider Reason for Visit * Reason Comments DM Foot Care PLANNING AND ANALYSIS MANAGER DIABETIC FOOT CAR E Encounter Details Date Type Department Care Team ([facility] st Contact Info) Description 11/25/2024 9:00 AM EST Consult Orthopedic Surgery - [place] [address] [phone] Cr Bolton, DPNaye [address] [address] Controlled type 2 diabetes with neuropathy (CMS/HCC) [...] in this encounter Ordered Prescriptions Prescription Sig Dispense Quantity Refills Last Filled Start Date End Date ketoconazole (NIZORAL) 2 % cream Apply topically 1 (one) time each day. 60 g 2 11/25/2024 ammonium lactate (AmLactin) 12 % lotion Apply topically if needed for dry skin. 400 g 2 11/25/2024 documented in this encounter Progress Notes * Cr Bolton, LORENA - 11/25/2024 9:00 AM EST Referring MD: Cosmo Last PCP visit: 10/14/2024 IDENTIFIER: @[email or web address]@ Tigre is a 74 y.o. year old [...] of humerus Diabetes mellitus type 2, uncomplicated ([facility]/HCC) Hypertension SOCIAL HISTORY: Social History Tobacco Use [...] Sharp/dull sensation intact, protective sensation diminished on [place]. Multiple peripheral neuropathies bilaterally. ORTHOPEDIC: Good muscle [...] 1. Controlled type 2 diabetes with neuropathy ([facility]) 2. Arthritis of both feet 3. PVD (peripheral vascular disease) ([facility]) 4. Xerosis cutis 5. Tinea pedis [...] Continue with regular appointments with PMD or unarmed security officer for tight medical management Patient found to [...] Care Team (Late st Contact Info) Description 01/27/2025 9:15 AM EDT Office Visit Orthopedic Surgery - [place] [address] [phone] Cr Bolton DPM [address] [address] documented as of this encounter Visit Diagnoses [...] nail documented in this encounter Care Teams Patternmaker Apprentice Wood Relationship Specialty Start Date End Date Keely Wilburn MD [address] [place] [phone] PCP - General 03/01/22 documented as of this encounter
--- OUTSIDE RECORDS SUMMARY | 2024-12-25 09:09 | XMS_ITS | Encounter Summary ---
Author Organization [employer] Address [address] [facility] 7t [place] [address] Care Team Providers Care Before School Babysitter Name Role Phone Keely Wilburn MD Primary Care Provider + Reason for Visit * Reason Onset Date Comments Hospital Follow-up 12/18/2024 Encounter Details Date Type Department Care Team ([facility] st Contact Info) Description 12/18/2024 Telephone [facility] MEDICINE [address] [place], [place] [phone] Keely Wilburn MD 230 [place], [place] [phone] Hospital Follow-up Social History Tobacco Use Types [...] EST TC placed to pt via S pharmacy sales representative (ID#[id number]) regarding r/s of HDF. No answer, LVM to call office back and ask to speak to the red team nurses. * Telephone Encounter - Marco Antonio Montanez - 12/18/2024 9:14 AM EST Tc from daughter had to cancel 12/18 HDF visit and needs to r/s. . Feltmaker And Weigher offered two other dates and times and she declined. Requesting call from nurse. documented in this encounter Plan of Treatment Upcoming Encounters Date Type Department Care Team (Late st Contact Info) Description 01/15/2025 10:30 AM EST Office Visit [facility] MEDICINE [address] [place] [address] Keely Wilburn MD [address] [place] [address] documented as of this encounter Visit Diagnoses Not on filedocumented in this encounter Care Teams Before School Babysitter Relationship Specialty Start Date End Date Keely Wilburn MD [address] [place] [address] PCP - General Family Medicine 10/27/19 [employer] 08/06/24 documented as of this encounter
--- OUTSIDE RECORDS SUMMARY | 2024-12-25 09:09 | XMS_ITS | Encounter Summary ---
Author Organization [employer] Address [address] [facility] 7t [place] [address] Care Team Providers Care Claims Coordinator Name Role Phone Keely Wilburn MD Primary Care Provider + Reason for Visit * Reason Comments Transition Of Care (Tcm) HDF scheduled a nd SDOH screening negative and Tobacco screening negative Encounter Details Date Type Department Care Team (Late st Contact Info) Description 12/08/2024 Patient Outreach [facility] MEDICINE 230 [place], [place] [phone] Keely Wilburn MD 230 [place], [place] [phone] Transition Of Care (Tcm) (HDF scheduled and [...] 12/08/24 1328 Hospital Discharges and Admission for [facility] Type of Visit Hospital Admission Date of Admission/Visit 12/02/24 Date of Discharge 12/05/24 Facility [facility] Diagnosis Diarrhea, Vomiting, Abdominal Pain, Chest Pain, [...] Wednesdays, and Walk-In Urgent Care Located in [facility]. Patient daughter provided with after-hours line for [facility], , which offer night time triage service and option to transfer to professional shopper provider if needed. CC scanned discharge summary into patient's chart. Biggest concern for appointment at this time is blood pressure machine is not working. Appropriate screenings completed in anticipation of appointment. documented in this encounter Plan of Treatment Upcoming Encounters Date Type Department Care Team (Late st Contact Info) Description 01/15/2025 10:30 AM EST Office Visit [facility] MEDICINE [address] [place] [phone] Keely Wilburn MD [address] [place] [phone] documented as of this encounter Visit Diagnoses Not on filedocumented in this encounter Care Teams Claims Coordinator Relationship Specialty Start Date End Date Keely Wilburn MD [address] [place] [phone] PCP - General Family Medicine 10/27/19 [employer] 08/06/24 documented as of this encounter
--- OUTSIDE RECORDS SUMMARY | 2024-12-25 09:09 | XMS_ITS | Encounter Summary ---
Author Organization [employer] Address [address] [facility] [address] 7t [place] [address] Care Team Providers Care Academic Dean Name Role Phone Keely Wilburn MD Primary Care Provider + Reason for Visit * Reason Onset Date Comments ORder 12/05/2024 Encounter Details Date Type Department Care Team ([facility] st Contact Info) Description 12/05/2024 Telephone [facility] MEDICINE 230 [place], [place] [phone] Keely Wilburn MD 230 [place], [place] [phone] ORder Social History Tobacco Use Types Packs/Day [...] 11:29 AM EST TC placed to Ivon [phone] to provide verbal orders for PT. Ivon verbalized understanding. Ivon to f/u PRN. * Telephone Encounter - Huey Puentes - 12/05/2024 11:19 AM EST TC from Ivon with [facility] Requesting PCP to Sign Home care orders for Home Physical therapy. IF any questions contact Ivon at [phone] Option 2 documented in this encounter Plan of Treatment Upcoming Encounters Date Type Department Care Team (Late st Contact Info) Description 01/15/2025 10:30 AM EST Office Visit [facility] MEDICINE [address] [place] [address] Keely Wilburn MD 230 [place] [address] documented as of this encounter Visit Diagnoses Not on filedocumented in this encounter Care Teams Academic Dean Relationship Specialty Start Date End Date Keely Wilburn MD 230 [place] [address] PCP - General Family Medicine 10/27/19 [email or web address] 08/06/24 documented as of this encounter
--- OUTSIDE RECORDS SUMMARY | 2024-12-25 09:10 | XMS_ITS | Encounter Summary ---
Author Organization [employer] Address [address] 7t [place] [address] Care Team Providers Care Specialty Manufacturing Supervisor Name Role Phone Keely Wilburn MD Primary Care Provider + Reason for Visit * Reason Comments Med Change Request Encounter Details Date Type Department Care Team (Late st Contact Info) Description 11/06/2023 Refill [facility] MEDICINE 230 [place], [place] [phone] Keely Wilburn MD 230 [place], [place] [phone] Osteopenia of neck of femur, unspecified laterality [...] Office Visit [facility] MEDICINE [address] [place] [phone] Keely Wilburn MD [address] [place] [phone] documented as of this encounter Visit Diagnoses Diagnosis Osteopenia of neck of femur, unspecified laterality documented in this encounter Care Teams Specialty Manufacturing Supervisor Relationship Specialty Start Date End Date Keely Wilburn MD [address] [place] [phone] PCP - General Family Medicine 10/27/19 [employer] 08/06/24 documented as of this encounter
--- OUTSIDE RECORDS SUMMARY | 2024-12-25 09:10 | XMS_ITS | Encounter Summary ---
Author Organization [employer] Address [address] [facility] [address] 7t [place] [address] Care Team Providers Care Defensive Line Coach Name Role Phone Keely Wilburn MD Primary Care Provider + Encounter Details Date Type Department Care Team (Late st Contact Info) Description 05/07/2024 Telephone [facility] MEDICINE 230 [place], [place] [phone] Keely Wilburn MD 230 [place], [place] [phone] Social History Tobacco Use Types Packs/Day Years [...] contact # if there is any questions [phone] documented in this encounter Plan of Treatment Upcoming Encounters Date Type Department Care Team (Late st Contact Info) Description 01/15/2025 10:30 AM EST Office Visit [facility] MEDICINE [address] [place] [phone] Keely Wilburn MD [address] [place] [address] documented as of this encounter Visit Diagnoses Not on filedocumented in this encounter Care Teams Defensive Line Coach Relationship Specialty Start Date End Date Keely Wilburn MD [address] [place] [address] PCP - General Family Medicine 10/27/19 [employer] 08/06/24 documented as of this encounter
--- OUTSIDE RECORDS SUMMARY | 2024-12-25 09:10 | XMS_ITS | Encounter Summary ---
Author Organization [facility] Address [address] [facility] 7t [place] [address] Care Team Providers Care Tester Regulator Name Role Phone Keely Wilburn MD Primary Care Provider + Encounter Details Date Type Department Care Team (Late Contact Info) Description 07/10/2023 Telephone [facility] MEDICINE [address] [place] [phone] Katty Gutierrez LPN Social History Tobacco Use [...] Description 01/15/2025 10:30 AM EST Office Visit [facility] MEDICINE [address] [place] [address] [phone] Keely Wilburn MD 230 [place] [address] documented as of this encounter Visit Diagnoses Not on filedocumented in this encounter Care Teams Tester Regulator Relationship Specialty Start Date End Date Keely Wilburn MD [address] [place] [phone] PCP - General Family Medicine 10/27/19 [employer] 08/06/24 documented as of this encounter
--- OUTSIDE RECORDS SUMMARY | 2024-12-25 09:10 | XMS_ITS | Encounter Summary ---
Author Organization [employer] Address [address] [facility] [address] 7t [place] [address] Care Team Providers Care Corporate Sales Representative Name Role Phone Keely Wilburn MD Primary Care Provider + Reason for Visit * Reason Comments Med Change Request Encounter Details Date Type Department Care Team ([facility] st Contact Info) Description 11/09/2023 Refill [facility] [address] [place], [place] [phone] Kaci Le, 230 [place] [address] Type 2 diabetes mellitus with other specified complication, 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 (CMS/[facility]) Social History Tobacco Use Types [...] Description 01/15/2025 10:30 AM EST Office Visit [facility] MEDICINE 230 [place] [address] Keely Wilburn MD 230 [place] [address] documented as of this encounter Visit Diagnoses Diagnosis Type 2 diabetes mellitus with other specified complication, 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 ([facility]) documented in this encounter Care Teams Corporate Sales Representative Relationship Specialty Start Date End Date Keely Wilburn MD [address] [place] [phone] PCP - General Family Medicine 10/27/19 [employer] 08/06/24 documented as of this encounter
--- OUTSIDE RECORDS SUMMARY | 2024-12-25 09:10 | XMS_ITS | Clinical Summary ---
Author Organization [address] [place] [address] Address [address] [place] [address] Phone Care Team Providers Care Building Cleaner Name Role Phone Keely Wilburn MD Primary Care Provider Allergies Active Allergy Reactions Criticality Noted Date Comments Penicillins Rash 02/21/2017 Medications acetaminophen (TYLENOL) 500 mg tablet TAKE 1 TABLET BY ORAL ROUTE EVERY6 8 HOURS NEEDED NOT TO EXCEED 4 TABLETS PER 24HRS 1 Active albuterol sulfate (ProAir RespiClick) 90 mcg/actuation aerosol powdr breath activated Inhale by mouth. Act bennett amLODIPine (NORVASC) 10 mg tablet Take 1 tablet (10 mg total) by mouth 1 (one) time each day. Active pen needle,diabetic dual safty 30 gauge x 3/16 needle 2 (two) times a day. 1 Active benazepril-hydr ochlorthiazide (LOTENSIN HCT) 20-12.5 mg per tablet Take 1 tablet by mouth 1 (one) time each day. 1 Active calcium carbonate-vitam in D3 600 mg-10 mcg (400 unit) chewable tablet Chew 1 tablet 2 (two) times a day. 2 Active calcium carbonate-vitam in D 600 mg-10 mcg (400 unit) per tablet Take 1 tablet by mouth 2 (two) times a day. 8 Active diclofenac (VOLTAREN) 1 % topical gel APPLY 2 GRAMS TOPICALLY TWICE A DAY NEEDED FOR PAIN 1 Active docusate sodium (COLACE) 100 mg capsule Take 1 Cap by mouth 2 times daily as needed for Constipation. 8 Active doxycycline (VIBRAMYCIN) 100 mg capsule Take 1 capsule (100 mg total) by mouth 2 (two) times a day. 1 Active gabapentin (NEURONTIN) 100 mg capsule Take 2 capsules (200 mg total) by mouth 3 (three) times a day. Active glipiZIDE (GLUCOTROL XL) 2.5 mg 24 hr tablet Take 4 tablets (10 mg total) by mouth 2 (two) times a day. Active insulin glargine (Lantus Solostar U-100 Insulin) 100 unit/mL (3 mL) injection pen INJECT 18 UNITS INTO THE SKIN EVERY DAY 1 Active irbesartan-hydr oCHLOROthiazide (AVALIDE) 300-12.5 mg per tablet Take 1 tablet by mouth 1 (one) time each day. Active ketorolac (ACULAR) 0.5 % ophthalmic solution INSTILL 1 DROP INTO BOTH EYES TWICE A DAY STARTING 2 DAYS PRIOR TO SURGERY 1 Active linagliptin-met formin 2.5-500 mg tablet Take by mouth 1 (one) time each day. 9 Active lisinopriL (PRINIVIL,ZESTR IL) 20 mg tablet Take 2 Tabs by mouth every morning. 8 Active loperamide (IMODIUM) 2 mg capsule Take 1 capsule (2 mg total) by mouth 4 (four) times a day if needed. Active omeprazole (PriLOSEC) [address] capsule Take 1 Cap by mouth daily for 360 days. 8 Active omeprazole (PriLOSEC) [address] capsule 1 Active DIABETIC SUPPLIES, MISCELLAN. MISC ONE TOUCH BASIC STRIPS Active lancets lancets ONETOUCH LANCETS Active OneTouch Ultra Test test strip USE 4 TIMES A DAY 1 Active rosuvastatin (CRESTOR) 10 mg tablet Take 1 tablet (10 mg total) by mouth at bedtime. 8 Active senna (SENOKOT) 8.6 mg tablet Take 1 tablet (8.6 mg total) by mouth 1 (one) time each day. Active sertraline (ZOLOFT) 100 mg tablet Take 2 tablets (200 mg total) by mouth 1 (one) time each day. 1 Active sertraline (ZOLOFT) 50 mg tablet TAKE 1 TABLET BY MOUTH EVERY DAY IN THE MORNING 2 Active budesonide-form oteroL (Symbicort) 160-4.5 mcg/actuation inhaler Inhale 2 puffs by mouth 2 (two) times a day. 1 Active timolol (TIMOPTIC) 0.5 % ophthalmic solution 1 Active dulaglutide (Trulicity) 0.75 mg/0.5 mL pen injector injection INJECT 1 PEN SUBCUTANEOUS ONCE A WEEK 1 Active cyanocobalamin (VITAMIN B-12) 100 mcg tablet Take 1 Tab by mouth every morning. 8 Active ammonium lactate (AmLactin) 12 % lotion Apply topically if needed for dry skin. 400 g 2 5 11/25/19 26 Active ketoconazole (NIZORAL) 2 % cream Apply topically 1 (one) time each day. 60 g 2 5 Active Active Problems Problem Noted Date Diagnosed Date Anemia 10/03/2024 Asthma 10/03/2024 Diabetes mellitus type 2, uncomplicated 10/03/20 24 Hypertension 10/03/2024 Closed fracture of lower end of humerus 08/11/20 10 Overview (10/03/2024): IMO update Encounters Date Type Department Care Team Description 12/23/2024 9:00 AM EST Office Visit Orthopedic Surgery [facility] 175 [facility] [address] [place] [phone] Eloisa Chaudhari PA Primary osteoarthritis of both knees (Primary Dx) 11/25/2024 9:00 AM EST Consult Orthopedic Surgery [facility] 250 [address] [facility] [address] [place] [phone] Cr Bolton DPM Controlled type 2 diabetes with neuropathy (CMS/HCC) (Primary Dx); Arthritis of both feet; PVD (peripheral vascular disease) (CMS/HCC); Xerosis cutis; Tinea pedis of both feet; Dermatophytosis, nail from Last 3 Months Surgical History Surgery Date Site/Laterality Comments OTHER SURGICAL HISTORY PROCEDURE: DENIES PREVIOUS SURGERY OTHER SURGICAL HISTORY PROCEDURE: ME LIG/TRNSXJ FLP TUBE ABDL/VAG APPR UNI/BI Medical [...] on file Sexual Orientation Not on file Obstetrics History Last Filed [...] AM EDT Office Visit Orthopedic Surgery - [place] 250 175 [facility] [address] [place] [phone] Cr Bloton DPM 175 [facility] [address] [place] [phone] Health Maintenance Due Date Last Done Comments [...] Old (1 - 1-dose 75+ series) 2023 COVID-19 Vaccine ( season) 2024 03/29/2022, 09/20/2021, 08/19/2021 Diabetes: Blood Sugar Control Test (HGBA1C) 04/14/2025 10/14/2024, 09/28/2022, 07/12/2018 Diabetes: Annual GFR (Glomerular Filtration Rate) 12/19/2025 12/19/2024, 03/24/2022 Hypertension/CHF/CAD Annual BMP Blood Test 12/19/2025 12/19/2024, 03/24/2022 DTaP,Tdap,and Td Vaccines (5 - Td or Tdap) 06/07/2032 06/07/2022, 04/17/2017, 06/09/2009, Additional history exists MMR Vaccines Aged Out 05/18/1998 No longer eligi ble based on patient's age to complete this topic Colorectal Cancer Screening: Colonoscopy Discontinued 09/12/2018 Pneumococcal Vaccine: 50+ Years Completed 05/31/2023, 08/17/2015, [...] patient's age to complete this topic Meningococcal B Vacine Aged Out No lo nger eligible based on patient's age to complete [...] BMP Blood Test abstracted Historical Provider MD HEALTH MAINTENANCE Final Result * Colonoscopy (09/12/2018) Pathologist [facility] Colonoscopy no interpretation , abstracted Anatomical Region Laterality Modality Other [facility] Provider HEALTH MAINTENANCE Final Result * (ABNORMAL) Hemoglobin A1c (07/12/2018) Pathologist [facility] Hemoglobin A1C 6.5(A) 4.0 - 6.0 % Blood Venous blood specimen / Unknown Historical Provider LAB BLOOD ORDERABLES Meka l Result from Last 3 Months or Most Recently Relevant to Health Maintenance Insurance MEDICARE Member Subscriber Plan / Payer (Ef fective 2024-Present) Name:Adrianne Landeros Relation to Subscriber:Self Name:Adrianne Landeros Payer ID:[id number] Group ID:[id number] Type:Not on file Address: [place] [address] [address] [id number] Advance Directives Documents on File Type Date Recorded Patient Sql Report Analyst Expl anation Health Care Decision (hx) 04/22/2018 [...] (hx) 04/22/2018 AD BECKWITH DIRECTIVE Care Teams Building Cleaner Relationship Specialty Start Date End Date Keely Wilburn MD [address] [place] [phone] PCP - General 03/01/22
--- OUTSIDE RECORDS SUMMARY | 2024-12-25 09:10 | XMS_ITS ---
Author Name Naveed ENRIKESherry Address [address] [place] [address] Phone [phone] [facility] Care Team Providers Care Launderette Attendant Name Role Phone Sherry Lucio Unavailable [phone] Unavailable Unavailable Unavailable Reason for Referral Not [...] No Data Available BD AUTOSHIELD DUO NDL [id number] USE WITH INSULIN TWICE DAILY 2022-09-05 No Data Meseret ilable Benazepril 20 mg Tab TAKE 1 TABLET (20 M G) BY MOUTH IN THE MORNING. DC BENAZEPRIL/HCTZ 2022-11-16 No Data Available Lantus SoloStar 100 UNIT/ML Solution Pen-injector INJECT 18 UNITS SUBCUTANEOUSLY ONCE DAILY 2023-05-31 No Data Available amLODIPine Besylate 10 mg Tab TAKE 1/2 TABLET BY MOUTH DAILY 2022-08-24 No Data Available Qdjfmemhhm-DDRF-Flghlvkv 50/325/40 mg Tab TAKE 1 TABLET BY [...] No Data Available BD AUTOSHIELD DUO NDL [id number] USE WITH INSULIN TWICE DAILY 2023-12-25 No [...] Active 2023-12-16 N/A Other problems related to ny dical facilities and other health care Active 2024-01-17 N/A Severe persistent asthma, un complicatedChronic bronchitis-Allergic bronchitis with acute exacerbation Active 2023-12-04 N/A COVID Active 2024-01-17 N/A Other problems related to [place] dical facilities and other health care Active 2024-01-22 N/A Encounters Encounters Type Facility Date of Service Diagnosis/Co mplaint New patient,40-59min; chronic exacerbation, 2 stable chronic or 1 acute illness add add modifier 95 for video (do not use for phone, instead use 43714-94) [facility] Severe persistent asthma, uncomplicatedBenign paroxysmal vertigo, [...] (do not use for phone, instead use 77428-52) [facility] New patient,40-59min; chronic exacerbation, 2 stable chronic or 1 acute illness add add modifier 95 for video (do not use for phone, instead use 08981-87) [facility] New patient,40-59min; chronic exacerbation, 2 stable chronic or 1 acute illness add add modifier 95 for video (do not use for phone, instead use 00861-68) [facility] New patient,40-59min; chronic exacerbation, 2 stable chronic or 1 acute illness add add modifier 95 for video (do not use for phone, instead use 43044-87) [facility] New patient,40-59min; chronic exacerbation, 2 stable chronic or 1 acute illness add add modifier 95 for video (do not use for phone, instead use 48912-66) [facility] New patient,40-59min; chronic exacerbation, 2 stable chronic or 1 acute illness add add modifier 95 for video (do not use for phone, instead use 43716-63) [facility] New patient,40-59min; chronic exacerbation, 2 stable chronic or 1 acute illness add add modifier 95 for video (do not use for phone, instead use 39346-79) [facility] New patient,40-59min; chronic exacerbation, 2 stable chronic or 1 acute illness add add modifier 95 for video (do not use for phone, instead use 84883-37) [facility] New patient,40-59min; chronic exacerbation, 2 stable chronic or 1 acute illness add add modifier 95 for video (do not use for phone, instead use 49377-35) [facility]2023 No Data Available [facility]2024 Severe persistent asthma, uncomplicatedUnspecified chronic bronchitis No Data Available [facility]2024 No Data Available [facility]2024 Severe persistent asthma, uncomplicatedUnspecified chronic bronchitisBenign [...] and other health care No Data Available [facility]17[place]2024 No Data Available [facility]/17[place]2024 No Data Available [facility]2024 No Data Available [facility]18[place]2024 Severe persistent asthma, uncomplicatedUnspecified chronic bronchitisUnspecified [...] and other health care No Data Available [facility]18[place]2024 No Data Available [facility]/18[place]2024 No Data Available [facility]18[place]2024 No Data Available [facility]/2024 Severe persistent asthma, uncomplicatedUnspecified chronic bronchitisUnspecified [...] and other health care No Data Available [facility]/2024 Vital Signs Date of Collection Vitals [...] tive Time Current Smoking Status Never smoker 2024-12-13 3 Sex Female History of Procedures Procedures Service Procedure code Service date Servicing provider Phone# New patient,40-59min; chronic exacerbation, 2 stable chronic or 1 acute illness add add modifier 95 for video (do not use for phone, instead use 50650-40) 35723 2023-12-04 No Data Available No Data Availa [...] No Data Avail able No Data Available [id number] 2024-01-15 No Data Available No Data Available Medication List Documented (1159F) 1159F 2024-01-15 No Data Available No Data Meseret ilable No Data Available [id number] 2024-01-17 No Data Available No Data Available Medication List Documented (1159F) 1159F 2024-01-17 No Data Available No Data Meseret ilable Functional Status Assessed (1170F) 1170F 2024-01-17 No Data Available No Data Avail able Most recent A1c (HbA1c) or GMI level <7% (3044F) 3044F 2024-01-17 No Data Available No Data Availa ble No Data Available [id number] 2024-01-18 No Data Available No Data Available SBP 130-139 (3075F) 3075F 2024-01-18 No Data Availabl e No Data Available DBP <80 (3078F) 3078F 2024-01-18 No Data Available No Data Available Functional Status Assessed (1170F) 1170F 2024-01-18 No Data Available No Data Avail able No Data Available 71524 2024-01-21 No Data Available No Data Available [...] physical activity.Check home BP BIW and prn CP/HKOURY/DOENon smoking patient.stATINfollowed and monitored by pcpRO GAGANDEEP [...] and one episode of vomiting this am. [facility] tested member this am and she [...] and one episode of vomiting this am. [facility] tested member this am and she [...] health RN. Continue to push pedialite and fish bait picker zofran. f/u sched 01/21/24-call CB 04/06 for change in medical statusCall CB if sob, fever, wheezing 2024-01-21 06:26:06 Phone (patient, pare nt, or guardian); 5-10 minutes of medical discussion (no modifier 95)Continue to see PCP. [facility] [...] and one episode of vomiting this am. [facility] tested member this am and she [...] health RN. Continue to push pedialite and fish bait picker zofran. f/u sched 01/21/24-call CB 04/06 for [...]
--- OUTSIDE RECORDS SUMMARY | 2024-12-25 09:10 | XMS_ITS | Encounter Summary ---
Author Organization [employer] Address [address] [place] [address] Care Team Providers Care Fixture Maker Name Role Phone Keely Wilburn MD Primary Care Provider + Reason for Visit * Reason Comments Med Refill Encounter Details Date Type Department Care Team (Late st Contact Info) Description 05/08/2024 Refill [facility] [address] [place], [place] [phone] Keely Wilburn MD [address] [place], [place] [phone] Osteopenia of neck of femur, unspecified laterality [...] AM EST Office Visit [facility] [address] [place] [phone] Keely Wilburn MD [address] [place] [address] documented as of this encounter Visit Diagnoses Diagnosis Osteopenia of neck of femur, unspecified laterality documented in this encounter Care Teams Fixture Maker Relationship Specialty Start Date End Date Keely Wilburn MD [address] [place] [phone] PCP - General Family Medicine 10/27/19 [employer] 08/06/24 documented as of this encounter
--- OUTSIDE RECORDS SUMMARY | 2024-12-25 09:10 | XMS_ITS | Encounter Summary ---
Author Organization [employer] Address [address] [facility] 7t [place] [address] Care Team Providers Care Certified Nurse Practitioner Name Role Phone Keely Wilburn MD Primary Care Provider + Encounter Details Date Type Department Care Team (Late st Contact Info) Description 11/08/2023 Abstract [facility] [address] [place], [place] [phone] Keely Wilburn MD [address] [place], [place] [phone] Social History Tobacco Use Types Packs/Day Years [...] 10:30 AM EST Office Visit [facility] [address] [place] [phone] Keely Wilburn MD [address] [place] [address] documented as of this encounter Visit Diagnoses Not on filedocumented in this encounter Care Teams Certified Nurse Practitioner Relationship Specialty Start Date End Date Keely Wilburn MD [address] [place] [phone] PCP - General Family Medicine 10/27/19 [employer] 08/06/24 documented as of this encounter
--- OUTSIDE RECORDS SUMMARY | 2024-12-25 09:10 | XMS_ITS | Encounter Summary ---
Author Organization [employer] Address [address] [place] [address] Care Team Providers Care Machine Welt Butter Name Role Phone Keely Wilburn MD Primary Care Provider + Reason for Visit * Reason Comments Med Refill Encounter Details Date Type Department Care Team (Late st Contact Info) Description 12/09/2023 Refill [facility] [address] [place], [place] [phone] Keely Wilburn MD 230 [place], [place] [phone] Osteopenia of neck of femur, unspecified laterality [...] 01/15/2025 10:30 AM EST Office Visit [facility] [address] [place] [phone] Keely Wilburn MD [address] [place] [address] documented as of this encounter Visit Diagnoses Diagnosis Osteopenia of neck of femur, unspecified laterality documented in this encounter Care Teams Machine Welt Butter Relationship Specialty Start Date End Date Keely Wilburn MD [address] [place] [phone] PCP - General Family Medicine 10/27/19 [employer] 08/06/24 documented as of this encounter
--- OUTSIDE RECORDS SUMMARY | 2024-12-25 09:10 | XMS_ITS ---
Author Organization [facility] Address [address] [place] [address] Care Team Providers Care Reed Maker Name Role Phone Cosmo VAZQUEZ, Keely Primary Care Provider Unavail able Rod Arthur Unavailable [phone] Mathew Boss Unavailable Unavailable REASON FOR VISIT hospitalized Encounters Encounter Location Date Provider Diagnosis [facility] [address] [place] [address] 09/10/2023 Rod Arthur PLAN OF TREATMENT No Information
--- OUTSIDE RECORDS SUMMARY | 2024-12-25 09:10 | XMS_ITS | Encounter Summary ---
Author Organization [employer] Address [address] 7[address] [place] [address] Care Team Providers Care Tools Programmer Name Role Phone Keely Wilburn MD Primary Care Provider + Reason for Visit * Reason Comments Med Refill Encounter Details Date Type Department Care Team (Late st Contact Info) Description 01/18/2024 Refill [facility] [address] [place], [place] [phone] Keely Wilburn MD [address] [place], [place] [phone] Other postherpetic nervous system involvement Social History [...] Description 01/15/2025 10:30 AM EST Office Visit [facility] [address] [place] [phone] Keely Wilburn MD [address] [place] [address] documented as of this encounter Visit Diagnoses Diagnosis Other postherpetic nervous system involvement documented in this encounter Care Teams Tools Programmer Relationship Specialty Start Date End Date Keely Wilburn MD [address] [place] [phone] PCP - General Family Medicine 10/27/19 [employer] 08/06/24 documented as of this encounter
--- OUTSIDE RECORDS SUMMARY | 2024-12-25 09:11 | XMS_ITS | Encounter Summary ---
Author Organization [employer] Address [address] [facility] 7t [place] [address] Care Team Providers Care Dye Beck Reel Operator Name Role Phone Keely Wilburn MD Primary Care Provider + Reason for Visit * Reason Comments Med Refill Encounter Details Date Type Department Care Team (Late st Contact Info) Description 08/20/2024 Refill [facility] [address] [place], [place] [phone] Keely Wilburn MD [address] [place], [place] [phone] Benign paroxysmal positional vertigo, unspecified laterality; Type 2 diabetes mellitus with other specified complication, unspecified whether continuous churn buttermaker insulin use ([facility] [place] [facility]) Social History Tobacco Use Types Packs/Day [...] Description 01/15/2025 10:30 AM EST Office Visit [facility] [address] [place] [phone] Keely Wilburn MD [address] [place] [phone] documented as of this encounter Visit Diagnoses Diagnosis Benign paroxysmal positional vertigo, unspecified laterality Type 2 diabetes mellitus with other specified complication, unspecified whether continuous churn buttermaker insulin use ([facility] [place] [facility]) documented in this encounter Care Teams Dye Beck Reel Operator Relationship Specialty Start Date End Date Keely Wilburn MD [address] [place] [address] PCP - General Family Medicine 10/27/19 [employer] 08/06/24 documented as of this encounter
--- OUTSIDE RECORDS SUMMARY | 2024-12-25 09:11 | XMS_ITS | Encounter Summary ---
Author Organization [employer] Address [address] [facility] [facility] [place] [address] Care Team Providers Care Bark Scaler Name Role Phone Keely Wilburn MD Primary Care Provider + Reason for Visit * Reason Comments Med Refill Encounter Details Date Type Department Care Team (Late st Contact Info) Description 07/08/2024 Refill [facility] 230 [place], [place] [phone] Anusha Real MD 230 [place], [place] [phone] Benign paroxysmal positional vertigo, unspecified laterality Social [...] Description 01/15/2025 10:30 AM EST Office Visit [facility] [address] [place] [phone] Keely Wilburn MD [address] [place] [address] documented as of this encounter Visit Diagnoses Diagnosis Benign paroxysmal positional vertigo, unspecified laterality documented in this encounter Care Teams Bark Scaler Relationship Specialty Start Date End Date Keely Wilburn MD [address] [place] [phone] PCP - General Family Medicine 10/27/19 [employer] 08/06/24 documented as of this encounter
--- OUTSIDE RECORDS SUMMARY | 2024-12-25 09:11 | XMS_ITS | Encounter Summary ---
Author Organization [employer] Address [address] [address] [facility] [address] [place] [address] Care Team Providers Care Inventory Control Associate Name Role Phone Keely Wilburn MD Primary Care Provider + Reason for Visit * Reason Onset Date Comments Nurse Triage 07/07/2024 Encounter Details Date Type Department Care Team (Late st Contact Info) Description 07/07/2024 Telephone [facility] [address] [place], [place] [phone] Keely Wilburn MD [address] [place] [address] Nurse Triage Social History Tobacco Use Types [...] 07/07/2024 12:02 PM EDT Triage call with [employer] [facility] Team Pt blood sugar this morning was 302. [...] - 07/07/2024 10:29 AM EDT TC from [facility] with [employer] [facility] reports high blood sugars over 200 . Todays Blood Sugar without fasting was 302 Pt non symptomatic at the moment documented in this encounter Plan of Treatment Upcoming Encounters Date Type Department Care Team (Late st Contact Info) Description 01/15/2025 10:30 AM EST Office Visit [facility] [address] [place], [place] [phone] Keely Wilburn MD [address] [place], [place] [phone] documented as of this encounter Visit Diagnoses Not on filedocumented in this encounter Care Teams Inventory Control Associate Relationship Specialty Start Date End Date Keely Wilburn MD [address] [place], [place] [phone] PCP - General Family Medicine 10/27/19 [employer] 08/06/24 documented as of this encounter
--- OUTSIDE RECORDS SUMMARY | 2024-12-25 09:11 | XMS_ITS | Encounter Summary ---
Author Organization [employer] Address [address] [facility] 7t [place] [address] Care Team Providers Care Java Sybase Developer Name Role Phone Keely Wilburn MD Primary Care Provider + Reason for Visit * Reason Comments Med Refill Encounter Details Date Type Department Care Team (Late st Contact Info) Description 07/09/2024 Refill [facility] [address] [place], [place] [phone] Keely Wilburn MD [address] [place], [place] [phone] Slow transit constipation; Type 2 diabetes mellitus with hyperglycemia, with long-term current use of insulin ([facility]) Social History Tobacco Use Types Packs/Day Years [...] Office Visit [facility] [address] [place] [phone] Keely Wilburn MD [address] [place] [address] documented as of this encounter Visit Diagnoses Diagnosis Slow transit constipation Type 2 diabetes mellitus with hyperglycemia, with long-term current use of insulin ([facility]) documented in this encounter Care Teams Java Sybase Developer Relationship Specialty Start Date End Date Keely Wilburn MD [address] [place] [address] [phone] PCP - General Family Medicine 10/27/19 [employer] 08/06/24 documented as of this encounter
--- OUTSIDE RECORDS SUMMARY | 2024-12-25 09:11 | XMS_ITS | Encounter Summary ---
Author Organization [employer] Address [address] [facility] 7t [place] [address] Care Team Providers Care Supervisor Brooder Farm Name Role Phone Keely Wilburn MD Primary Care Provider + Reason for Visit * Reason Comments Med Refill Encounter Details Date Type Department Care Team (Late st Contact Info) Description 08/13/[address] [facility] [address] [place], [place] [phone] Keely Wilburn MD [address] [place], [place] [phone] Benign paroxysmal positional vertigo, unspecified laterality; Type 2 diabetes mellitus with other specified complication, unspecified whether package wrapper insulin use ([facility]) Social History Tobacco Use Types Packs/Day Years [...] 10:30 AM EST Office Visit [facility] [address] [place] [address] Keely Wilburn MD [address] [place] [address] 585[address] documented as of this encounter Visit Diagnoses Diagnosis Benign paroxysmal positional vertigo, unspecified laterality Type 2 diabetes mellitus with other specified complication, unspecified whether package wrapper insulin use ([facility]) documented in this encounter Care Teams Supervisor Brooder Farm Relationship Specialty Start Date End Date Keely Wilburn MD [address] [place] [phone] PCP - General Family Medicine 10/27/19 [employer] 08/06/24 documented as of this encounter
--- OUTSIDE RECORDS SUMMARY | 2024-12-25 09:11 | XMS_ITS | Continuity of Care Document ---
Author Organization [employer] in - [facility] Address [address] [place] [phone] Care Team Providers Care Facility Maintenance Helper Name Role Phone HIM CCA OTHER [facility] Referring Provider Assessment Encounter Date Assessment Date Assessment LastModified by Organization Details LastModified Time 12/02/2024 12/02/2024 I provided real -time medical direction via phone for this encounter, and was available for additional phone based assistance as needed. I have reviewed and agree with the Assessment and Plan as documented by the Senior Sql Dba. We discussed the diagnostic uncertainty of home visits and the risk associated with this. The patient given the opportunity to ask questions. [email or web address] Not available 12/03/2024 02:39:54 Plan of Treatment Reminders Order Date Submit Date Provider Last Modified By Organization Details Last Modified Time Details Appointments None recorded. Lab BMP, serum or plasma 2024 025 [email or web address] 0 [facility], [address] [place] [address], [phone], 5 02:43:56 rapid flu (A+B) 2024 025 [email or web address] 0 [facility], [address] [place] [address], [address], 5 02:43:56 rapid SARS CoV 2 Ag, QL IA, respiratory specimen 2024 025 [email or web address], [address], 5 02:43:56 Referral None recorded. Procedures None recorded. Surgeries None recorded. Imaging electrocard iogram 2024 025 [email or web address] 0 [facility], [address] [place] [address], [address], 5 02:43:56 Medication Orders lactated Ringers intravenous solution 2024 025 [email or web address] 0 [id number], [address] [place], [address], 5 02:43:56 ondansetron HCl (PF) 4 mg/2 mL injection solution 2024 025 [email or web address] 0 [id number], [address] [place], [address], 5 02:43:56 famotidine (PF) 20 mg/2 mL intravenous solution 2024 025 [email or web address] 0 [id number], [address] [place], [address], 5 02:43:56 Patient TargetsNo targets recorded. Patient InstructionsNo instructions recorded. Reason for Referral None Reported. Results Created Date Observation Date Name Description Value Unit Range Abnormal Flag Note LastModifiedBy Organization Detail LastModifiedTime 12/02/1912/02/2024 rapid SARS CoV 2 Ag, QL IA, respi rator y speci men rapid SARS CoV 2 Ag, QL IA, respiratory specimen negati ve Not Available [facility] ed [address] [place] [address], [address], 12/02/2024 12:32:06 12/02/19 25 12/02/2024 rapid flu (A+B) Flu negati ve Not Available [facility] ed [address] [place] [address], [address], 12/02/2024 12:32:06 12/03/19 25 12/03/2024 renzo perez am No observ ation record ed. [email or web address] [facility] [address] [place] [address], [address], 12/03/2024 02:41:54 Result Notes None recorded. Procedures Surgical History None recorded. Imaging Results Imaging Date Name Status LastModified by Organization Details LastModified Time 12/03/2024 electrocardiogram completed [email or web address] [address], [place], [address], 12/03/2024 02:41:54 Procedure Notes None recorded. Medical [...] Not available Not available Not available 07/23/2024 [id number] SNOMED Not Available [facility] - production [...] cm 98.8 [degF] 97 % 97 % 41563.5 6 g 16 /min 84 /min 130 [...] SNOMED-CT Code Diagnosis ICD10 Code Diagnosis Note [id number] Ely Anne MD [facility] - [facility] [address] [place] [phone] 12/02/2024 10:44:41 12/03/2024 18:59:31 Chest pain [id number] R07.9 Patient initially declined the ER, feeling [...] She ultimately agreed, sent by EMS to [facility], report called to the Xpect line in the ER Acute gastroenteritis 69 [id number] K52.9 Color improved feels better and dry [...] Amezquita Member ID Guarantor Name 12/02/2024 1 [facility] - DOS ON OR AFTER 2023 - DUAL ELIGIBLE - USP OPTIONS AND ONE CARE (MEDICARE REPLACEMENT/ADV ANTAGE - HMO) Adrianne Landeros [id number] Adrianne Landeros Notes Date Note Type Note [...] s/s and seek emergency treatment if needed. Senior Sql Dba Organization Information for Mahin Reed [employer] Legal Name: [employer] Address: [address] [place] [address], [place] [address], Crew Trainer: Jeffrey Cheng MD [facility] No.: [id number] Senior Sql D[employer] POC Test Results from Mahin Reed - [...] .................... .................... .................... .................... .................... .................... . Senior Sql Dba Note From Mahin Reed: MIPushpa makes pt [...] to her in the bed. Pt is Nepali-speaking only, so interpretation services are obtained via [...] treatment today. Daughter arrives on scene to [facility] providing translation services. [facility] obtains vital signs and pt is assessed. [...] for bmp in anticipation of clinical course. [facility] contacts [facility] and [facility] orders 1 L LR, 4mg IV zofran, and 20mg IV famotadine, w/ repeat dose of zofran if needed. [facility] also raises concerns regarding pt's EKG. A [...] improvement in the nausea and chest pain. [facility] contacts [facility] to discuss pt transport to the ED for a cardiac workup. [facility] discusses this w/ family and pt and pt is amendable to transport by ambulance to [facility]. Pt is transported via [facility] and [facility] calls in pre-arrival report. [facility] is clear. Report completed by JAIR Reed [id number]. [facility] Lab Orders: BMP, serum or plasma: Performed rapid flu (A+B): Performed rapid SARS CoV 2 Ag, QL IA, respiratory specimen: Performed .................... .................... .................... .................... .................... .................... .................... . [facility] Consulted: Ely Anne .................... .................... .................... .................... .................... .................... .................... . Disposition: Fulfilled Ely Anne MD [address] [place] [address],[address] [facility], [place], [address], [facility] - MEDEMMILAGROS RAMIREZ 12/03/2024 02:46:08 OBGyn Episode No OBEpisode recorded.
--- OUTSIDE RECORDS SUMMARY | 2024-12-25 09:11 | XMS_ITS | Encounter Summary ---
Author Organization [employer] Address [address] [facility] 7t [place] [address] Care Team Providers Care Video Technician Name Role Phone Keely Wilburn MD Primary Care Provider + Reason for Visit * Reason Comments Med Refill Encounter Details Date Type Department Care Team (Late st Contact Info) Description 07/16/2024 Refill [facility] [address] [place], [place] [phone] Keely Wilburn MD [address] [place], [place] [phone] Type 2 diabetes mellitus with hyperglycemia, with long-term current use of insulin ([facility]) Social History Tobacco Use Types Packs/Day Years [...] 10:30 AM EST Office Visit [facility] [address] [place] [address] [phone] Keely Wilburn MD [address] [place] [phone] documented as of this encounter Visit Diagnoses Diagnosis Type 2 diabetes mellitus with hyperglycemia, with long-term current use of insulin ([facility]) documented in this encounter Care Teams Video Technician Relationship Specialty Start Date End Date Keely Wilburn MD [address] [place] [address] PCP - General Family Medicine 10/27/19 [employer] 08/06/24 documented as of this encounter
--- OUTSIDE RECORDS SUMMARY | 2024-12-25 09:11 | XMS_ITS | Encounter Summary ---
Author Organization [employer] Address 75 [facility] 7t [place] [address] Care Team Providers Care Marble Supervisor Name Role Phone Keely Wilburn MD Primary Care Provider + Reason for Visit * Reason Comments Med Refill Encounter Details Date Type Department Care Team (Late st Contact Info) Description 08/18/[address] [facility]INE [address] [place], [place] [phone] Keely Wilburn MD 230 [place], [place] [phone] Benign paroxysmal positional vertigo, unspecified laterality; Type 2 diabetes mellitus with other specified complication, unspecified whether long term care phlebotomist insulin use ([facility]) Social History Tobacco Use [...] [facility]INE [address] [place] [address] Keeyl Wilburn MD [address] [place] [address] documented as of this encounter Visit Diagnoses Diagnosis Benign paroxysmal positional vertigo, unspecified laterality Type 2 diabetes mellitus with other specified complication, unspecified whether long term care phlebotomist insulin use ([facility]) documented in this encounter Care Teams Marble Supervisor Relationship Specialty Start Date End Date Keely Wilburn MD [address] [place] [address] PCP - General Family Medicine 10/27/19 [employer] 08/06/24 documented as of this encounter
--- OUTSIDE RECORDS SUMMARY | 2024-12-25 09:11 | XMS_ITS | Encounter Summary ---
Author Organization [employer] Address [address] [facility] [address] 7t [place] [address] Care Team Providers Care Blower Installer Name Role Phone Keely Wilburn MD Primary Care Provider + Reason for Visit * Reason Comments Med Refill Encounter Details Date Type Department Care Team (Late st Contact Info) Description 08/06/2024 Refill [facility] MEDICINE 230 [place], [place] [phone] Keely Wilburn MD 230 [place], [place] [phone] Benign paroxysmal positional vertigo, unspecified laterality Social History Tobacco Use Types Packs/Day Years Used Date Smoking Tobacco: Never Smokeless Tobacco: Never Alcohol Use Standard Drinks/Week Comments Never 0 (1 standard drink = 0.6 oz pur e alcohol) Housing Stability Answer Date Recorded What is your housing situation today? I have bryanna igl 08/29/[address] you li [...] Description 01/15/2025 10:30 AM EST Office Visit [facility] [address] [place] [phone] Keely Wilburn MD [address] [place] [phone] documented as of this encounter Visit Diagnoses Diagnosis Benign paroxysmal positional vertigo, unspecified laterality documented in this encounter Care Teams Blower Installer Relationship Specialty Start Date End Date Keely Wilburn MD [address] [place] [address] PCP - General Family Medicine 10/27/19 [employer] 08/06/24 documented as of this encounter
--- OUTSIDE RECORDS SUMMARY | 2024-12-25 09:11 | XMS_ITS | Encounter Summary ---
Author Organization [employer] Address [address] [facility] [address] 7t [place] [address] Care Team Providers Care Block Press Operator Name Role Phone Keely Wilburn MD Primary Care Provider + Reason for Visit * Reason Comments Med Refill Encounter Details Date Type Department Care Team (Late st Contact Info) Description 08/11/2024 Refill [facility] MED[facility]INE 230 [place], [place] [phone] Keely Wilburn MD [address] [place], [place] [phone] Benign paroxysmal positional vertigo, unspecified laterality Social [...] 01/15/2025 10:30 AM EST Office Visit [facility] MED[facility]INE [address] [place] [address] Keely Wilburn MD [address] [place] [address] documented as of this encounter Visit Diagnoses Diagnosis Benign paroxysmal positional vertigo, unspecified laterality documented in this encounter Care Teams Block Press Operator Relationship Specialty Start Date End Date Keely Wilburn MD [address] [place] [address] PCP - General Family Medicine 10/27/19 [employer] 08/06/24 documented as of this encounter
--- OUTSIDE RECORDS SUMMARY | 2024-12-25 09:11 | XMS_ITS | Encounter Summary ---
Author Organization [employer] Address [address] [facility] [address] 7[address] [place] [address] Care Team Providers Care Coal Washer Name Role Phone Keely Wilburn MD Primary Care Provider + Reason for Visit * Reason Onset Date Comments Durable Medical Equipment 08/08/2024 Encounter Details Date Type Department Care Team (Late st Contact Info) Description 08/08/2024 Telephone [facility]INE [address] [place], [place] [phone] Keely Wilburn MD [address] [place], [place] [phone] Durable Medical Equipment Social History Tobacco Use [...] Description 01/15/2025 10:30 AM EST Office Visit [facility] [address] [place] [address] Keely Wilburn MD [address] [place] [address] documented as of this encounter Visit Diagnoses Not on filedocumented in this encounter Care Teams Coal Washer Relationship Specialty Start Date End Date Keely Wilburn MD 230 [place] [address] PCP - General Family Medicine 10/27/19 [employer] 08/06/24 documented as of this encounter
--- OUTSIDE RECORDS SUMMARY | 2024-12-25 09:11 | XMS_ITS | Encounter Summary ---
Author Organization [employer] Address 75 [facility] 7t [place] [address] Care Team Providers Care Bale Sewer Name Role Phone Keely Wilburn MD Primary Care Provider + Reason for Visit * Reason Comments Med Refill Encounter Details Date Type Department Care Team (Late st Contact Info) Description 07/08/2024 Refill [facility] MEDICINE [address] [place], [place] [phone] Keely Wilburn MD 230 [place], [place] [phone] Type 2 diabetes mellitus with hyperglycemia, with long-term current use of insulin ([facility]); Slow transit constipation Social History Tobacco [...] Description 01/15/2025 10:30 AM EST Office Visit [facility] MED[facility]INE [address] [place] [address] Keely Wilburn MD [address] [place] [address] documented as of this encounter Visit Diagnoses Diagnosis Type 2 diabetes mellitus with hyperglycemia, with long-term current use of insulin ([facility]) Slow transit constipation documented in this encounter Care Teams Bale Sewer Relationship Specialty Start Date End Date Keely Wilburn MD [address] [place] [address] [phone] PCP - General Family Medicine 10/27/19 [employer] 08/06/24 documented as of this encounter
[2024-12-25 09:13] VITALS: BP 120/70; PULSE 66; O2SAT 95; BMI 37.8
== END 2024-12-25 09:52 | disposition home or self-care (01) ==
PROVIDERS: PCP Internal Medicine; Visit Provider Student in an Organized Health Care Education/Training Program
DX: M11.20 Other chondrocalcinosis, unspecified site (principal); R76.8 Other specified abnormal immunological findings in serum; Z79.899 Other long term (current) drug therapy
CPT/HCPCS: 99214; G2211

== ENCOUNTER → 2024-12-25 08:51 | Outpatient (BNVA) | payer OTHER, SELFPAY | PROVIDERS: PCP Internal Medicine; Visit Provider Student in an Organized Health Care Education/Training Program | DX: M11.231 Other chondrocalcinosis, right wrist (principal); M11.232 Other chondrocalcinosis, left wrist; R76.8 Other specified abnormal immunological findings in serum; Z79.899 Other long term (current) drug therapy | CPT/HCPCS: 99212 ==

== ENCOUNTER 2025-01-02 07:11 | Outpatient (AMB) | payer OTHER, SELFPAY ==
--- OUTSIDE RECORDS SUMMARY | 2025-01-02 07:13 | XMS_ITS | Encounter Summary ---
Author Organization [facility] Address [address] [place] [address] Phone Care Team Providers Care Blast Furnace Tender Name Role Phone Keely Wilburn MD Primary Care Provider + [phone] Encounter Details Date Type Department Care Team (Late Contact Info) Description 09/29/2024 Documentation Only [facility] [address] [place] [address] Juju Avila [address] [place] [phone] Social History Tobacco Use Types Packs/Day Years [...] Visit [facility] [address] [place] [address] Terrance Garcia MD [address] [place] [address] [place] [address] documented as of this encounter Visit Diagnoses Not on filedocumented in this encounter Care Teams Blast Furnace Tender Relationship Specialty Start Date End Date Keely Wilburn MD [address] [place] [address] PCP - General Internal Medicine 02/11/20 documented as of this encounter
--- OUTSIDE RECORDS SUMMARY | 2025-01-02 07:13 | XMS_ITS | Encounter Summary ---
Author Organization [employer] Address 75 [facility] 7t [place] [address] Care Team Providers Care Mold Shop Supervisor Name Role Phone Keely Wilburn MD Primary Care Provider + Reason for Visit * Reason Onset Date Comments Email paperwork 12/26/2022 Encounter Details Date Type Department Care Team ([facility] st Contact Info) Description 12/26/[address] [facility] MED[facility]INE 230 [place], [place] [phone] Keely Wilburn MD [address] [place] [address] Email paperwork Social History Tobacco Use Types [...] 3:13 PM EST Tc from Cathryn with [place] [facility] stating that she spoke with a nurse regarding some paperwork that nurse was having trouble faxing over and Cathryn gave over her but she has not receive anything back, the email is [email or web address] If any information needed please contact Cathryn at [phone] documented in this encounter Plan of Treatment Upcoming Encounters Date Type Department Care Team (Late st Contact Info) Description 01/15/2025 10:30 AM EST Office Visit [facility]INE [address] [place] [address] Keely Wilburn MD [address] [place] [address] documented as of this encounter Visit Diagnoses Not on filedocumented in this encounter Care Teams Mold Shop Supervisor Relationship Specialty Start Date End Date Keely Wilburn MD [address] [place] [address] PCP - General Family Medicine 10/27/19 [employer] 08/06/24 documented as of this encounter
--- OUTSIDE RECORDS SUMMARY | 2025-01-02 07:13 | XMS_ITS | Encounter Summary ---
Author Organization [facility] Address [address] [place] [address] Phone Care Team Providers Care Expressive Music Therapist Name Role Phone Keely Wilburn MD Primary Care Provider + [phone] Encounter Details Date Type Department Care Team (Late Contact Info) Description 03/18/2024 Documentation Only [facility] [address] [place] [address] Juju Avila [address] [place] [phone] Social History Tobacco Use Types Packs/Day Years [...] Visit [facility] [address] [place] [address] Terrance Garcia MD [address] [place] [address] [place] [address] documented as of this encounter Visit Diagnoses Not on filedocumented in this encounter Care Teams Expressive Music Therapist Relationship Specialty Start Date End Date Keely Wilburn MD [address] [place] [address] PCP - General Internal Medicine 02/11/20 documented as of this encounter
--- OUTSIDE RECORDS SUMMARY | 2025-01-02 07:13 | XMS_ITS | Encounter Summary ---
Author Organization [facility] Address [address] [place] [address] Phone Care Team Providers Care Supervisor Industrial Arts Education Name Role Phone Keely Wilburn MD Primary Care Provider + [phone] Encounter Details Date Type Department Care Team (Late Contact Info) Description 03/18/2024 Documentation Only [facility] [address] [place] [address] Juju Avila [address] [place] [phone] Social History Tobacco Use Types Packs/Day Years [...] Visit [facility] [address] [place] [address] Terrance Garcia MD [address] [place] [address] [place] [address] documented as of this encounter Visit Diagnoses Not on filedocumented in this encounter Care Teams Supervisor Industrial Arts Education Relationship Specialty Start Date End Date Keely Wilburn MD [address] [place] [address] PCP - General Internal Medicine 02/11/20 documented as of this encounter
--- OUTSIDE RECORDS SUMMARY | 2025-01-02 07:13 | XMS_ITS | Encounter Summary ---
Author Organization [facility] Address [address] [place] [address] Phone Care Team Providers Care Chief Executive Name Role Phone Keely Wilburn MD Primary Care Provider + [phone] Encounter Details Date Type Department Care Team (Late Contact Info) Description 03/18/2024 Documentation Only [facility] [address] [place] [address] Juju Avila [address] [place] [phone] Social History Tobacco Use Types Packs/Day Years [...] Visit [facility] [address] [place] [address] Terrance Garcia MD [address] [place] [address] [place] [address] documented as of this encounter Visit Diagnoses Not on filedocumented in this encounter Care Teams Chief Executive Relationship Specialty Start Date End Date Keely Wilburn MD [address] [place] [address] PCP - General Internal Medicine 02/11/20 documented as of this encounter
--- OUTSIDE RECORDS SUMMARY | 2025-01-02 07:13 | XMS_ITS | Encounter Summary ---
Author Organization [employer] [facility] Address [address] [facility] 7t [place] [address] Care Team Providers Care Fabric Separator Operator Name Role Phone Keely Wilburn MD Primary Care Provider + Encounter Details Date Type Department Care Team (Late Contact Info) Description 01/17/2023 Abstract [facility] [address] [place] [address] Keely Wilburn MD [address] [place], [place] [phone] Social History Tobacco Use Types Packs/Day Years [...] Description 01/15/2025 10:30 AM EST Office Visit [facility] [address] [place], [place] [phone] Keely Wilburn MD [address] [place] [address] documented as of this encounter Visit Diagnoses Not on filedocumented in this encounter Care Teams Fabric Separator Operator Relationship Specialty Start Date End Date Keely Wilburn MD [address] [place] [address] PCP - General Family Medicine 10/27/19 [employer] 08/06/24 documented as of this encounter
--- OUTSIDE RECORDS SUMMARY | 2025-01-02 07:13 | XMS_ITS ---
Author Organization [facility] Address [address] [place] [address] Care Team Providers Care Respiratory Support Technician Name Role Phone Keely Wilburn MD Primary Care Provider Unavail able Rod Arthur Unavailable [phone] Mathew Boss Unavailable Unavailable REASON FOR VISIT screening colon Encounters Encounter Location Date Provider Diagnosis [facility] Outpatient [address] [place], [place] [phone] 02/06/2024 Rod Arthur Encounter for scre ening [...]
--- OUTSIDE RECORDS SUMMARY | 2025-01-02 07:13 | XMS_ITS | Encounter Summary ---
Author Organization [facility] Address [address] [place] [address] Phone Care Team Providers Care Mechanical Manager Name Role Phone Keely Wilburn MD Primary Care Provider + [phone] Encounter Details Date Type Department Care Team (Late Contact Info) Description 08/05/2024 Documentation Only [facility] [address] [place] [address] Jaz Jane [place] [address] [place] [phone] Social History Tobacco Use Types Packs/Day Years [...] Visit [facility] [address] [place] [address] Terrance Garcia MD [address] [facility] [place] [address] documented as of this encounter Visit Diagnoses Not on filedocumented in this encounter Care Teams Mechanical Manager Relationship Specialty Start Date End Date Keely Wilburn MD [address] [place] [address] PCP - General Internal Medicine 02/11/20 documented as of this encounter
--- OUTSIDE RECORDS SUMMARY | 2025-01-02 07:13 | XMS_ITS | Data Portability ---
Author Organization [employer] Address [address] [place] [address] Care Team Providers Care Professor Of Archaeology Name Role Phone HIM CCA OTHER [facility] Referring Provider Assessment Encounter Date Assessment Date Assessment LastModified by Organization Details LastModified Time 07/23/2024 07/23/2024 I provided real -time medical direction via phone for this encounter and was available for additional phone-based assistance as needed. I have reviewed and agree with the Assessment and Plan as documented by the Ornamenter Hand. Patient given the opportunity to ask questions. Our service contacted for an assessment of: Edema and discoloration of the leg As per above, patient with chronic venous stasis and wanted an evaluation for possible infection. Please see uploaded pictures. Patient with no increase in pain. Per factory clerk on the scene, vital signs are stable the patient is afebrile. Per factory clerk on the scene there was no increase [...] Assessment and Plan as documented by the Ornamenter Hand. We discussed the diagnostic uncertainty of home visits and the risk associated with this. The patient given the opportunity to ask questions. [email or web address] Not available 12/03/2024 02:39:54 Plan of Treatment Reminders Order Date Submit Date Provider Last Modified By Organization Details Last Modified Time Details Appointments None recorded. Lab BMP, serum or plasma 2024 025 [email or web address] [facility], [address] [place] [address], [phone], 5 02:43:56 rapid flu (A+B) 2024 025 [email or web address] 0 [facility], [address] [place] [address], [phone], 5 02:43:56 rapid SARS CoV 2 Ag, QL IA, respiratory specimen 2024 025 [email or web address] 0 [facility], [address] [place] [address], [phone], 5 02:43:56 Referral None recorded. Procedures None recorded. Surgeries None recorded. Imaging electrocard iogram 2024 025 [email or web address] 0 [facility] [address] [place] [address], [address], 5 02:43:56 Medication Orders lactated Ringers intravenous solution 2024 025 [email or web address] 0 [facility] #[id number], [address] [place], [address], 5 02:43:56 ondansetron HCl (PF) 4 mg/2 mL injection solution 2024 025 [email or web address] 0 [facility]armacy #[id number], [address] [place], [address], 5 02:43:56 famotidine (PF) 20 mg/2 mL intravenous solution 2024 025 [email or web address] 0 [facility]armacy #[id number], [address] [place], [address], 02:43:56 Patient TargetsNo targets recorded. Patient InstructionsNo instructions recorded. Reason for Referral None Reported. Results Created Date Observation Date Name Description Value Unit Range Abnormal Flag Note LastModifiedBy Organization Detail LastModifiedTime 12/02/1912/02/2024 rapid SARS CoV 2 Ag, QL IA, respi rator y speci men rapid SARS CoV 2 Ag, QL IA, respiratory specimen negati ve Not Available [facility] [address] [place] [address], [phone], 12/02/2024 12:32:06 12/02/19 25 12/02/2024 rapid flu (A+B) Flu negati ve Not Available [facility] [address] [place] [address], [address], 12/02/2024 12:32:06 12/03/19 25 12/03/2024 elect oh castrogr am No observ ation record ed. [email or web address] [address], [address], 12/03/2024 02:41:54 Result Notes None recorded. Procedures Surgical History None recorded. Imaging Results Imaging Date Name Status LastModified by Organization Details LastModified Time 12/03/2024 electrocardiogram completed [email or web address] [address], [address], 12/03/2024 02:41:54 Procedure Notes None recorded. Medical Equipment None Reported. Allergies Allergen ID Allergen Name Allergen Category Reaction Reaction Severity Criticality Documentation Date Start Date Code Code System Note Provider Name and Address Organization Details Recorded Time 6155 aspirin medicatio n Not available Not available Not available 07/23/2024 1191 RxNorm Not Available [facility] - production 04:57:50 6156 Product containin g penicilli n (product) medicatio n Not available Not available Not available 07/23/2024 57465 8001 SNOMED Not Available [facility] - production 4 [...] Address Organization Details Last Updated DateTime 4 75599.6 g 18 /min 60 /min 157.48 cm 98.4 [degF] 97 % 97 % 173 mm[Hg] 82 mm[Hg] Not Available [facility] [employer] 4 17:39:44 Date Recorded Body height Body temperature Oxygen saturation Oxygen saturation in Arterial blood by Pulse oximetry Body weight Respiratory rate Heart rate Systolic blood pressure Diastolic blood pressure Provider Name and Address Organization Details Last Updated DateTime 5 162.56 cm 98.8 [degF] 97 % 97 % 08244.5 6 g 16 /min 84 /min 130 mm[Hg] 71 mm[Hg] Not Available [employer] 5 10:44:43 Social History None recorded. Functional Status None recorded. Mental Status None recorded. Family History Nothing Reported. Medical History No medical history recorded. Gynecological HistoryNo gynecological history recorded. Obstetrics History GPAL:G 0 P 0 0 0 0 Past Encounters Encounter ID Performer Location Encounter Start Date Encounter Closed Date Diagnosis/Indication Diagnosis SNOMED-CT Code Diagnosis ICD10 Code Diagnosis Note [id number] Paz Gaona MD [facility] [address] [place] [phone] 07/23/2024 17:39:33 07/23/2024 22:02:00 Venous stasis edema of bilateral lower limbs [id number] 3165074 I87.2 [id number] Ely Anne MD [facility] [address] [place] [phone] 12/02/2024 10:44:41 12/03/2024 18:59:31 Chest pain 98321770 R07.9 Patient initially declined the ER, feeling [...] She ultimately agreed, sent by EMS to [facility] Mia lund, report called to the Xpect line in the ER Acute gastroenteritis 69 [id number] K52.9 Color improved feels better and dry [...] Amezquita Member ID Guarantor Name 07/23/2024 1 [facility] - DOS ON OR AFTER 2023 - DUAL ELIGIBLE - [facility] OPTIONS AND ONE CARE (MEDICARE REPLACEMENT/ADV ANTAGE - HMO) [facility] [id number] [facility] 12/02/2024 1 [facility] - DOS ON OR AFTER 2023 - DUAL ELIGIBLE - [facility] OPTIONS AND ONE CARE (MEDICARE REPLACEMENT/ADV ANTAGE - HMO) [facility] [id number] [facility] Notes Date Note Type Note Provider Name and Address Organization Details Recorded Time 07/23/2024 text/html HPI: PMHx:Varicose veins of lower extremities.Call returned to [facility] to triage below. Spoke with daughter who [...] Diabetes Allergies: Aspirin, Penicillin Comments: Reviewed HPI Ornamenter Hand Organization Information for Norman [employer] Business Legal Name: [facility] Address: [address] [place] [address], [place] [address], [employer] Rough Opener: Donnie LAIRD No.: [id number] Ornamenter Hand POC Test Results from Norman Stern Blood Glucose Measurement (16:50:25) Blood Glucose: 179 mg/dL .................... .................... .................... .................... .................... .................... .................... . Ornamenter Hand Note From Norman Stern: Patient seated on [...] noted. good ROM, good CSM, negative calf tenderness.[facility] advises patient to keep appointment next week. Advises patient to consider using compression stockings, dinh wraps and follow up with PCP. [facility] advises patient to use Tylenol as directed for pain. Patient says she has same on hand, red flags patient education discussed. Ornamenter Hand Allergies: Aspirin, Penicillin .................... .................... .................... .................... .................... .................... .................... . Disposition: Fulfilled Paz Gaona MD [address] [place] [address],[address], [place], [address], [employer] 07/23/2024 19:44:57 12/02/2024 text/html [facility] Nurse Triage Notes (Perlita Segura - RN): [...] s/s and seek emergency treatment if needed. Ornamenter Hand Organization Information for Mahin Reed Business Legal Name: [employer] Address: [address] [place] [address] [place] [address], [place]el [place] Rough Opener: Jeffrey LAIRD No.: [id number] Ornamenter Hand POC Test Results from Mahin Reed - ALS Rapid COVID antigen (11:01:12) COVID: - Rapid influenza antigen (11::13) Flu: - EKG (11::17) EKG test performed. [...] .................... .................... .................... .................... .................... .................... . Ornamenter Hand Note From Mahin Reed: [place] makes pt [...] to her in the bed. Pt is Macedonian-speaking only, so interpretation services are obtained via [...] treatment today. Daughter arrives on scene to finish providing translation services. [facility] obtains [...] of clinical course. [facility] contacts [facility] and [facility] orders 1 L LR, 4mg IV zofran, and 20mg IV famotadine, w/ repeat dose of zofran if needed. [facility] also raises concerns regarding pt's EKG. A [...] improvement in the nausea and chest pain. [facility] contacts [facility] to discuss pt transport to the ED for a cardiac workup. [facility] discusses this w/ family and pt and pt is amendable to transport by ambulance to [facility]. Pt is transported via [facility] and [facility] calls in pre-arrival report. [facility] is clear. Report completed by JAIR Reed [id number]. [facility] Lab Orders: BMP, serum or plasma: Performed rapid flu (A+B): Performed rapid SARS CoV 2 Ag, QL IA, respiratory specimen: Performed .................... .................... .................... .................... .................... .................... .................... . [facility] Consulted: Ely Anne .................... .................... .................... .................... .................... .................... .................... . Disposition: Fulfilled Ely Anne MD [address] [facility],[address], [place], [address], [employer] 12/03/2024 02:46:08 OBGyn Episode No OBEpisode recorded.
--- OUTSIDE RECORDS SUMMARY | 2025-01-02 07:13 | XMS_ITS | Encounter Summary ---
Author Organization [facility] Address [address] [place] [address] Phone Care Team Providers Care Member Services Representative Name Role Phone Keely Wilburn MD Primary Care Provider + [phone] Encounter Details Date Type Department Care Team (Late Contact Info) Description 03/18/2024 Documentation Only [facility] [address] [place] [address] Juju Avila [address] [place] [phone] Social History Tobacco Use Types Packs/Day Years [...] [facility] [address] [place] [address] Terrance Garcia MD [address] [place] [address] [place] [address] documented as of this encounter Visit Diagnoses Not on filedocumented in this encounter Care Teams Member Services Representative Relationship Specialty Start Date End Date Keely Wilburn MD [address] [place] [address] PCP - General Internal Medicine 02/11/20 documented as of this encounter
--- OUTSIDE RECORDS SUMMARY | 2025-01-02 07:13 | XMS_ITS | Encounter Summary ---
Author Organization [facility] Address [address] [place] [address] Phone Care Team Providers Care Signs Sales Representative Name Role Phone Keely Wilburn MD Primary Care Provider + [phone] Encounter Details Date Type Department Care Team (Late Contact Info) Description 09/02/2024 Documentation Only [facility] [address] [place] [address] Jaz Jane [place] [address] [place] [phone] Social History Tobacco Use Types Packs/Day Years [...] Visit [facility] [address] [place] [address] Terrance Garcia MD [address] [facility] [place] [address] documented as of this encounter Visit Diagnoses Not on filedocumented in this encounter Care Teams Signs Sales Representative Relationship Specialty Start Date End Date Keely Wilburn MD [address] [place] [address] PCP - General Internal Medicine 02/11/20 documented as of this encounter
--- OUTSIDE RECORDS SUMMARY | 2025-01-02 07:14 | XMS_ITS | Encounter Summary ---
Author Organization [employer] Address [address] [facility] [address] [place] [address] Care Team Providers Care Supplemental Manager Name Role Phone Keely Wilburn MD Primary Care Provider + Reason for Visit * Reason Onset Date Comments ORder 12/05/2024 Encounter Details Date Type Department Care Team ([facility] st Contact Info) Description 12/05/2024 Telephone [facility] [address] [place], [place] [phone] Keely Wilburn MD [address] [place], [place] [phone] ORder Social History Tobacco Use Types Packs/Day [...] 11:29 AM EST TC placed to Ivon [phone] to provide verbal orders for PT. Ivon verbalized understanding. Ivon to f/u PRN. * Telephone Encounter - Huey Puentes - 12/05/2024 11:19 AM EST TC from Ivon with [facility] Requesting PCP to Sign Home care orders for Home Physical therapy. IF any questions contact Ivon at [phone] Option 2 documented in this encounter Plan of Treatment Upcoming Encounters Date Type Department Care Team (Late st Contact Info) Description 01/15/2025 10:30 AM EST Office Visit [facility] [address] [place] [address] Keely Wilburn MD [address] [place] [address] documented as of this encounter Visit Diagnoses Not on filedocumented in this encounter Care Teams Supplemental Manager Relationship Specialty Start Date End Date Keely Wilburn MD [address] [place] [address] PCP - General Family Medicine 10/27/19 [employer] 08/06/24 documented as of this encounter
--- OUTSIDE RECORDS SUMMARY | 2025-01-02 07:14 | XMS_ITS | Encounter Summary ---
Author Organization [facility] Address [address] [place] [address] Phone Care Team Providers Care Cash Register Mechanic Name Role Phone Keely Wilburn MD Primary Care Provider + [phone] Encounter Details Date Type Department Care Team (Late Contact Info) Description 03/18/2024 Documentation Only [facility] [address] [place] [address] Juju Avila [address] [place] [phone] Social History Tobacco Use Types Packs/Day Years [...] [facility] [address] [place] [address] Terrance Garcia MD [address] [place] [address] [place] [address] documented as of this encounter Visit Diagnoses Not on filedocumented in this encounter Care Teams Cash Register Mechanic Relationship Specialty Start Date End Date Keely Wilburn MD [address] [place] [phone] PCP - General Internal Medicine 02/11/20 documented as of this encounter
--- OUTSIDE RECORDS SUMMARY | 2025-01-02 07:14 | XMS_ITS | Encounter Summary ---
Author Organization [facility] Address [address] [place] [address] Phone Care Team Providers Care Dietary Services Director Name Role Phone Keely Wilburn MD Primary Care Provider + [phone] Encounter Details Date Type Department Care Team (Late Contact Info) Description 03/18/2024 Documentation Only [facility] [address] [place] [address] Juju Avila [address] [place] [phone] Social History Tobacco Use Types Packs/Day Years [...] Visit [facility] [address] [place] [address] Terrance Garcia MD [address] [place] [address] [place] [address] documented as of this encounter Visit Diagnoses Not on filedocumented in this encounter Care Teams Dietary Services Director Relationship Specialty Start Date End Date Keely Wilburn MD [address] [place] [address] PCP - General Internal Medicine 02/11/20 documented as of this encounter
--- OUTSIDE RECORDS SUMMARY | 2025-01-02 07:14 | XMS_ITS ---
Author Organization [facility] Address [address] [place] [address] Care Team Providers Care Field Specialist Name Role Phone Cosmo VAZQUEZ, Keely Primary Care Provider Unavail able Rod Arthur Unavailable [phone] Mathew Boss Unavailable Unavailable REASON FOR VISIT screening Encounters Encounter Location Date Provider Diagnosis [facility] [address], [place] [phone] 09/12/2023 Rod Arthur PLAN OF TREATMENT No Information
--- OUTSIDE RECORDS SUMMARY | 2025-01-02 07:14 | XMS_ITS | Encounter Summary ---
Author Organization [employer] Address [address] [facility] [address] [place] [address] Care Team Providers Care Blood Bank Calendar Control Clerk Name Role Phone Keely Wilburn MD Primary Care Provider + Encounter Details Date Type Department Care Team (Late st Contact Info) Description 12/23/2024 Telephone [facility] [address] [place] [address] Shelly Muñoz RN Social History Tobacco Use [...] regarding message below. Will re-task for [place] [id number] Hermes ----- Message from Keely Wilburn MD [...] Description 01/15/2025 10:30 AM EST Office Visit [facility] [address] [place] [address] Keely Wilburn MD [address] [place] [address] documented as of this encounter Visit Diagnoses Not on filedocumented in this encounter Care Teams Blood Bank Calendar Control Clerk Relationship Specialty Start Date End Date Keely Wilburn MD [address] [place] [phone] PCP - General Family Medicine 10/27/19 GENWI 08/06/24 documented as of this encounter
--- OUTSIDE RECORDS SUMMARY | 2025-01-02 07:14 | XMS_ITS | Encounter Summary ---
Author Organization [employer] Address [address] [facility] 7t [place] [address] Care Team Providers Care Manager Sales Support Name Role Phone Keely Wilburn MD Primary Care Provider + Reason for Visit * Reason Comments Transition Of Care (Tcm) HDF scheduled a nd SDOH screening negative and Tobacco screening negative Encounter Details Date Type Department Care Team (Late st Contact Info) Description 12/08/2024 Patient Outreach [facility] [address] [place], [place] [phone] Keely Wilburn MD [address] [place], [place] [phone] Transition Of Care (Tcm) (HDF scheduled and [...] 12/08/24 1328 Hospital Discharges and Admission for [facility] Type of Visit Hospital Admission Date of Admission/Visit 12/02/24 Date of Discharge 12/05/24 Facility [facility] Diagnosis Diarrhea, Vomiting, Abdominal Pain, Chest [...] Wednesdays, and Walk-In Urgent Care Located in [facility]. Patient daughter provided with after-hours line for [facility], , which offer night time triage service and option to transfer to conference center manager provider if needed. CC scanned discharge summary into patient's chart. Biggest concern for appointment at this time is blood pressure machine is not working. Appropriate screenings completed in anticipation of appointment. documented in this encounter Plan of Treatment Upcoming Encounters Date Type Department Care Team (Late st Contact Info) Description 01/15/2025 10:30 AM EST Office Visit [facility] [address] [place] [address] Keely Wilburn MD [address] [place] [address] [phone] documented as of this encounter Visit Diagnoses Not on filedocumented in this encounter Care Teams Manager Sales Support Relationship Specialty Start Date End Date Keely Wilburn MD [address] [place] [address] [phone] PCP - General Family Medicine 10/27/19 Provender 08/06/24 documented as of this encounter
--- OUTSIDE RECORDS SUMMARY | 2025-01-02 07:14 | XMS_ITS | Encounter Summary ---
Author Organization [facility] Address [address] [place] [address] Phone Care Team Providers Care Water Resources Technical Officer Name Role Phone Keely Wilburn MD Primary Care Provider + [phone] Encounter Details Date Type Department Care Team (Late Contact Info) Description 03/18/2024 Documentation Only [facility] [address] [place] [address] Juju Avila [address] [place] [phone] Social History Tobacco Use Types Packs/Day Years [...] Visit [facility] [address] [place] [address] Terrance Garcia MD [address] [place] [address] [place] [address] documented as of this encounter Visit Diagnoses Not on filedocumented in this encounter Care Teams Water Resources Technical Officer Relationship Specialty Start Date End Date Keely Wilburn MD [address] [place] [phone] PCP - General Internal Medicine 02/11/20 documented as of this encounter
--- OUTSIDE RECORDS SUMMARY | 2025-01-02 07:14 | XMS_ITS | Encounter Summary ---
Author Organization [employer] Address [address] [facility] 7t [place] [address] Care Team Providers Care Truck Headlight Assembler Name Role Phone Keely Wilburn MD Primary Care Provider + Reason for Visit * Reason Onset Date Comments Care Coordination 12/23/2024 Encounter Details Date Type Department Care Team (Late st Contact Info) Description 12/23/2024 Telephone [facility] [address] [place], [place] [phone] Corina Link, RN [address] [place] [address] Care Coordination Social History Tobacco Use Types [...] 6:52 PM EST Labs were ordered by [facility] rheumatology. Patient has an upcoming appointment with [facility] rheumatology on12/25/24. Sending to PCP as FYI. [...] 01/15/2025 10:30 AM EST Office Visit [facility] [address] [place] [address] Keely Wilburn MD [address] [place] [address] documented as of this encounter Visit Diagnoses Not on filedocumented in this encounter Care Teams Truck Headlight Assembler Relationship Specialty Start Date End Date Keely Wilburn MD [address] [place] [phone] PCP - General Family Medicine 10/27/19 [employer] 08/06/24 documented as of this encounter
--- OUTSIDE RECORDS SUMMARY | 2025-01-02 07:14 | XMS_ITS | Encounter Summary ---
Author Organization [employer] Address [address] [facility] [address] 7[address] [place] [address] Care Team Providers Care Flexible Machining System Machinist Name Role Phone Keely Wilburn MD Primary Care Provider + Reason for Visit * Reason Onset Date Comments VNA 12/08/2024 Encounter Details Date Type Department Care Team ([facility] st Contact Info) Description 12/08/2024 Telephone [facility] [address] [place], [place] [phone] Keely Wilburn MD [address] [place] [address] VNA Social History Tobacco Use Types Packs/Day [...] had start of care on 12/09/24 by [facility]. * Telephone Encounter - Corina Link RN - 12/08/2024 2:14 PM EST RN spoke to Christiano [phone] in regards to below message as patient was receiving [facility] services thru [facility]. RN was informed patient was discharged on 12/03/24 d/t being admitted to the hospital 12/02-12/05 and [facility] referred patient to [facility] upon discharge for PT ONLY. Christiano reports they can take patientback on for VNA services and PT if patient is discharged from [facility]. RN called daughter [phone] to inform of above message. Daughter reports she would like patientto return to S services. Daughter reports she told [facility] PT to not come out as she would like to return to [facility]. Daughter advised RN would call [facility] to ensure patient is discharged and re-refer patientto [facility]. Daughter verbalized understanding. [phone] if patient is active with them and process to discharge patient to return to [facility]. RN was advised patient is NOT established [...] documents to [facility]. TC returned to daughter [phone] to inform she will receive a call from [facility] once the paperwork is processed to schedule visit. Daughter verbalized understanding. Daughter to f/u PRN. * Telephone Encounter - Deanna Mathias - 12/08/2024 1:36 PM EST Tc from pt daughter requesting order for nurse visiting. No more info provided. Any questions contact Ashlyn Occitan documented in this encounter Plan of Treatment Upcoming Encounters Date Type Department Care Team (Late st Contact Info) Description 01/15/2025 10:30 AM EST Office Visit [facility]INE [address] [place] [address] [phone] Keely Wilburn MD [address] [place] [phone] documented as of this encounter Visit Diagnoses Not on filedocumented in this encounter Care Teams Flexible Machining System Machinist Relationship Specialty Start Date End Date Keely Wilburn MD [address] [place] [phone] PCP - General Family Medicine 10/27/19 [facility] 08/06/24 documented as of this encounter
--- OUTSIDE RECORDS SUMMARY | 2025-01-02 07:14 | XMS_ITS | Clinical Summary ---
Author Organization [employer] Address [address] [facility] 7t [place] [address] Care Team Providers Care Efficiency Engineer Name Role Phone Keely Wilburn MD [...] mellitus with other specified complication, unspecified whether care home insulin use (CMS/[facility]) INJECT 18 UNITS UNDER THE SKIN ONCE DAILY (BULK) 15 mL Active cholecalciferol (Vitamin D-3) 1.25 MG (25234 UT) capsule Take 1 capsule (1.25 mg) [...] 11 024 Active Lancets (OneTouch Delica Plus [id number]) miscIndications :Type 2 diabetes mellitus with diabetic nephropathy, with long-term current use of insulin (CMS/[facility]) USE TO TEST BLOOD SUGAR THREE TIMES [...] Continuous Glucose Sensor (FreeStyle Kelly 2 Sensor) [facility] Use as directed Active Trulicity 3 MG/0.5ML [...] hyperglycemia, with long-term current use of insulin ([facility]) INJECT 1.5MG UNDER THE SKIN ONCE WEEKLY [...] 05/24/2023 Overview (02/07/2024): Colonoscopy on 02/06/24 at [facility] Assessment & Plan (07/28/2023 [...] knees significant risk of fall, had a RADIATOR SPECIALIST for assistance ADLs. Needs assistance and reminders [...] requested refill of Trulicity be sent to [facility] as she had difficulty picking it up at local [facility] due to supply issues Assessment & [...] Plan (05/24/2023 11:18 AM EDT): r/o hypoglycemia RADIATOR SPECIALIST will monitor symptoms of dizziness and pt [...] Type Department Care Team Description 12/23/[address] [address] Corina Link, RN Care Coordination 12/23/[address] [address] Corina Link, KELLY Error (VOID this visit) 12/23/2024 Telephone [facility] [address] [place] [phone] Shelly Muñoz RN 12/19/2024 Orders Only [facility] External Provider, [facility] 12/18/[address] [address] Keely Wilburn MD Hospital Follow-up 12/17/[address] [address] Keely Wilburn MD Chart prep 12/08/[address] [address] Keely Wilburn MD VNA 12/08/2024 Patient Outreach [address] [address] Keely Wilburn MD Transition Of Care (Tcm) (HDF scheduled and SDOH screening negative and Tobacco screening negative) 12/08/[address] [address] Keely Wilburn MD Referral; order 12/08/[address] [address] Keely Wilburn MD Durable Medical Equipment (DME Request: Hand Held Shower Head) 12/08/[address] [phone] Keely Wilburn MD Hospital Follow-up 12/05/[address] [address] Keely Wilburn MD ORder 11/14/[address] [address] Keely Wilburn MD January recall 11/14/[address] [address] Keely Wilburn MD Durable Medical Equipment (Home Care Delivered Form: Incontinence Supplies) 10/16/[address] [address] Keely Wilburn MD Type 2 diabetes mellitus with diabetic nephropathy, with long-term current use of insulin ([facility]) 10/15/[address] [address] Corina Link, adult secondary education instructor Question 10/14/2024 9:15 AM EST Office Visit [address] [address] Keely Wilburn MD Type 2 diabetes mellitus with diabetic nephropathy, with long-term current use of insulin (CMS/HCC) (Primary Dx); Primary hypertension; Stage 3a chronic kidney disease (CMS/HCC); Vitamin D deficiency; Mixed stress and urge urinary incontinence 10/14/[address] [address] Keely Wilburn MD Durable Medical Equipment 10/14/2024 Travel 10/07/2024 Orders Only GENERIC EXTERNAL DATA DEPARTMENT Provider, Generic External Data 10/03/[address] [address] Keely Wilburn MD Durable Medical Equipment 10/03/[address] [address] Keely Wilburn MD Medication Question from Last 3 Months Immunizations Name Administration [...] Description 01/15/2025 10:30 AM EST Office Visit [facility] [address] [place] [phone] Keely Wilburn MD [address] [place] [address] Health Maintenance Due Date Last Done Comments Diabetes: Foot Exam 1958 Eye Exam 1958 Alcohol/Substance Use Screening 1960 Hepatitis B Vaccines (3 of 3 - 19+ 3-dose series) 10/17/2017 05/21/2017, 04/17/2017 RSV Patients and Patients Aged 60 years or older (1 - 1-dose 75+ series) 2023 Depression Screening 11/16/2023 11/16/2022, 11/16/19 23 COVID-19 Vaccine ( season) 2024 03/29/2022, 09/20/2021, [...] Blood Count 7.3 4.8 - 10.8 X10*3/uL [facility] Red Blood Count 3.73(L) 4.20 - 5.50 X10*6/uL [facility] Hemoglobin 10.3(L) 12.0 - 16.0 g/dl [facility] Hematocrit 32.4(L) 37.0 - 47.0 % [facility] Mean Corpuscular Volume 86.9 80.0 - 98.0 fL [facility] Mean Corpuscular Hemoglobin 27.6 27.0 - 33.0 pg [facility] Mean Corpuscular HGB Conc 31.8 31.0 - 35.0 g/dl [facility] Red Cell Distribution Width 13.2 11.0 - 16.0 % [facility] Platelet Count 237 160 - 400 X10*3/uL [facility] Mean Platelet Volume 11.7 9.4 - 12.3 fL [facility] Neutrophils Percent Auto 45.1 45 - 73 % [facility] Imm Gran Pct Auto 0.3 0.0 - 0.4 % [facility] Lymphocytes Percent Auto 41.9(H) 20 - 40 % [facility] Monocytes Percent Auto 10.2 2 - 11 % [facility] Eosinophils Percent Auto 2.1 0 - 4 % [facility] Basophils Percent Auto 0.4 0 - 2 % [facility] NRBC Pct Auto 0.0 0.0 - 0.2 /100WBC [facility] Neutrophils Absolute Auto 3.3 2.0 - 8.3 x10*3/uL [facility] Imm Gran Abs Auto 0.02 0.00 - 0.03 X10*3/uL [facility] Lymphocytes Absolute Auto 3.0 1.2 - 4.9 X10*3/uL [facility] Monocytes Absolute Auto 0.7 0.1 - 1.2 X10*3/uL [facility] Eosinophils Absolute Auto 0.2 0.0 - 0.4 X10*3/uL [facility] Basophils Absolute Auto 0.0 0.0 - 0.2 X10*3/uL [facility] NRBC Abs Auto 0.000 0.0 - 0.012 X10*3/uL [facility] 12/19/2024 11:0 0 AM EST 12/19/2024 11:01 AM EST us Generic External Data Provider LAB BLOOD ORDERAB LES Final Result Performing Organization Address [facility]/ZIP Co de Phone Number [facility] [address] [place] [phone] * (ABNORMAL) Sed Rate by Modified Julianaren (12/19/2024 11:00 AM EST) Erythrocyte Sedimentation Rate 53(H) 0 - 20 MM/HR [facility] Comment:Patients with polycy themia and many hemoglobin abnormalitiesmay have depressed sed rates whereas patients with anemiamay have elevated sed rates. 12/19/2024 11:0 0 AM EST 12/19/2024 11:01 AM EST us Generic External Data Provider LAB BLOOD ORDERAB LES Final Result Performing Organization Address [facility] Co de Phone Number [facility] [address] [place] [phone] * (ABNORMAL) C-reactive Protein (12/19/2024 11:00 AM EST) C Reactive Protein 0.55(H) < or = 0.50 mg/dL [facility] 12/19/2024 11:0 0 AM EST 12/19/2024 11:01 AM EST us Generic External Data Provider LAB BLOOD ORDERAB LES Final Result Performing Organization Address City/[facility]/ZIP Co de Phone Number [facility] [address] [place] [phone] * (ABNORMAL) PTH, Intact Without Calcium (12/19/2024 11:00 AM EST) Pathologist [facility] Parathyroid Hormone, Intact 125.4(H) 8.7 - 77.1 pg/mL [facility] 12/19/2024 11:0 0 AM EST 12/19/2024 11:01 AM EST Generic External Data Provider LAB BLOOD ORDERAB LES Final Result Performing Organization Address [facility]/ZIP Co de Phone Number [facility] [address] [place] [phone] * Magnesium (12/19/2024 11:00 AM EST) [facility] Magnesium 1.6 1.6 - 2.6 mg/dL [facility] 12/19/2024 11:0 0 AM EST 12/19/2024 11:01 AM EST [employer] External Data Provider LAB BLOOD ORDERAB LES Final Result Performing Organization Address [facility] Co de Phone Number [facility] [address] [place] [phone] * (ABNORMAL) Comprehensive Metabolic Panel (12/19/2024 11:00 AM EST) Pathologist [facility] Sodium 139 135 - 145 mmol/L [facility] Potassium 4.2 3.3 - 5.1 mmol/L [facility] Chloride 109(H) 96 - 108 mmol/L [facility] Carbon Dioxide 24 22 - 29 mmol/L [facility] Anion Gap 10(L) 12 - 20 [facility] Urea Nitrogen (BUN) 32(H) 9 - 16 mg/dL [facility] Creatinine, Serum 1.06 0.5 - 1.4 mg/dL [facility] Estimated Glomerular Filt Rate 50 [facility] Comment:Chronic Kidney Disea se: Estimated GFR < 60 mL/min/1.50q8Fymuzz Kidney Disease: Estimated GFR < 15 mL/min/1.73m2 Glucose 111 60 - 115 mg/dL [facility] Calcium 9.2 8.4 - 10.2 mg/dL [facility] Bilirubin, Total 0.4 0.0 - 1.0 mg/dL [facility] Aspartate Amino Transferase 22 5 - 31 U/L [facility] Alanine Aminotransferase 11 0 - 31 U/L [facility] Total Protein 7.7 6.5 - 8.0 g/dL [facility] Albumin Level 4.0 3.5 - 5.0 g/dL [facility] Alkaline Phosphatase 55 39 - 117 U/L [facility] 12/19/2024 11:0 0 AM EST 12/19/2024 11:01 AM EST us Generic External Data Provider LAB BLOOD ORDERAB LES Final Result Performing Organization Address City/State/[facility] Co de Phone Number [facility] [address] [place] [phone] * XR HAND WRIST RT (12/19/2024 10:23 AM EST) Anatomical Region Laterality Modality Abdomen Radiographic Marilyn ging 12/19/2024 10:2 3 AM EST Narrative 12/19/2024 10:56 AM EST ? [facility] ?[address] ?[place] [address] ?XRay Report ? Signed ? Patient: Landeros,Adrianne ?MR#: [id number] ? : 1950 ?Acct:[id number] ? Age/Sex: 74 / F ?ADM Date: 02/07/25 ? Loc: HO.XRAY ? Attending Dr: Donna Albert MD ? Ordering Physician: Donna Albert MD ?? Date of Service: 12/19/24 ?? Procedure(s): XR hand wrist RT ?? Accession Number(s): [id number] ? cc: Donna Albert MD; Keely Wilburn [...] DD/ 1023 ? TD/TT: 12/19/24 1035 ? Nurses Superintendent: ? Procedure Note Chrissy, Jose - 12/19/2024 [place] [address] XRay Report Signed Patient: Adrianne LanderosMR#: [id number] : 8Acct:[id number] Age/Sex: 74 / FADM Date: 12/19/24 Loc: MIKAYLA Attending Dr: Donna Albert MD Ordering Physician: Donna Albert MD Date of Service: 12/19/24 Procedure(s): XR hand wrist RT Accession Number(s): [id number] cc: Donna Albert MD; Keely Wilburn MD [...] 12/19/24 1054 DD/ 1023 TD/TT: 12/19/24 1035 Nurses Superintendent: [facility] External Provider IMG XR PROCEDURES Final Result * XR HAND WRIST LT (12/19/2024 10:23 AM EST) Anatomical Region Laterality Modality Abdomen Radiographic Marilyn ging 12/19/2024 10:2 3 AM EST Narrative 12/19/2024 11:09 AM EST ? [facility] ?[address] ?[place] [address] ?XRay Report ? Signed ? Patient: Landeros,Adrianne ?MR#: [id number] ? : 1950 ?Acct:[id number] ? Age/Sex: 74 / F ?ADM Date: 12/19/24 ? Loc: HO.XRAY ? Attending Dr: Donna Albert MD ? Ordering Physician: Donna Albert MD ?? Date of Service: 12/19/24 ?? Procedure(s): XR hand wrist LT ?? Accession Number(s): [id number] ? cc: Donna Albert MD; Keely Wilburn [...] DD/ 1023 ? TD/TT: 12/19/24 1035 ? Nurses Superintendent: ? Procedure Note Donotmorganinterpreter, Image - 12/19/[address] [address] XRay Report Signed Patient: Adrianne LnaderosMR#: [id number] : 8Acct:[id number] Age/Sex: 74 / FADM Date: 12/19/24 Loc: MIKAYLA Attending Dr: Donna Albert MD Ordering Physician: Donna Albert MD Date of Service: 12/19/24 Procedure(s): XR hand wrist LT Accession Number(s): [id number] cc: Donna Albert MD; Keely Wilburn MD [...] Rod Todd MD 12/19/2024 11:07 AM EST Dictated By: Rod Todd MD Signed By: <Electronically signed by Rod Todd MD in OV> 12/19/24 1107 DD/ 1023 TD/TT: 12/19/24 1035 Nurses Superintendent: [facility] External Provider IMG XR PROCEDURES Final Result * (ABNORMAL) POCT HGB A1C (10/14/2024 9:16 AM EST) Hemoglobin A1C 7.0(A) 4.0 - 6.0 % QC Media Lot # [id number] Lot# Expiration Date ,026 Blood 10/14/2024 9:16 AM EST us Keely Wilburn MD POINT OF CARE TEST ENTER /EDIT ORDERABLES Final Result * POCT Glucose (10/14/2024 9:07 AM EST) Glucose Blood, POC 199 60 - 200 mg/dL QC Media Lot # [id number] Lot# Expiration Date ,025 Blood Capillary blood specimen / Unknown 10/14/2024 9:07 AM EST Keely Wilburn MD POINT OF CARE TEST ENTER /EDIT ORDERABLES Final Result * (ABNORMAL) Glucose, Whole Blood (10/07/2024 9:52 AM EST) Glucose, Whole Blood 148(H) 60 - 115 mg/dL [facility] Comment:METER #: [id number] Testing performed in the Endocrinology Department [address] , [address], [facility]. 10/07/2024 9:52 AM EST 10/07/2024 9:57 AM EST us Generic External Data Provider LAB BLOOD ORDERAB LES Final Result [facility] [address] [place] [phone] * BI Mammogram Screening Tomosynthesis Bilateral (10/07/2024 8:50 AM EST) Anatomical Region Laterality Modality Breast Bilateral Mammography 10/07/2024 8:50 AM EST Narrative 10/16/2024 9:41 AM EST ? [facility] [place] [facility] ? [address] ?[place] [address] ? Mammography Report ? Signed ? Patient: Landeros,Adrianne ?MR#: [id number] ? : 1950 ?Acct:[id number] ? Age/Sex: 74 / F ?ADM Date: 10/07/24 ? Loc: HO.MAMMO ? Attending Dr: Keely Wilburn MD ? Ordering Physician: Keely Wilburn MD ?Results: 1Ne ?? gative ? Date of Service: 10/07/24 ?Follow Up: 1 Year From Orig ?? inal Mammogram ? Procedure(s): MM tomosynthesis screening BI ?? Accession Number(s): [id number] ? cc: Keely Wilburn MD ? EXAMINATION: [...] ??Marylou Goldstein DO ??10/16/2024 09:38 AM EST ?? RP ? Dictated By: ?Marylou Goldstein DO ? Signed By: ?<Electronically signed by Marylou Goldstein, DO in OV> ? 10/16/24 0938 ? DD/ 0850 ? TD/TT: 10/07/24 0905 ? Nurses Superintendent: ? Procedure Note Donotuseinterpreter, Image - 10/16/2024 [facility] [address] [place] [address] Mammography Report Signed Patient: Adrianne LanderosMR#: [id number] : 8Acct:[id number] Age/Sex: 74 / FADM Date: 10/07/24 Loc: HO.MAMMO Attending Dr: Keely Wilburn MD Ordering Physician: Keely Wilburn MDResults: 1Ne gative Date of Service: 10/07/24Follow Up: 1 Year From Orig ina Mammogram Procedure(s): MM tomosynthesis screening BI Accession Number(s): [id number] cc: Keely Wilburn MD EXAMINATION: MM SCREENING [...] DO Signed By: <Electronically signed by Marylou Goldstien DO in OV> 10/16/24937 DD/ 9 TD/TT: 10/07/24904 Nurses Superintendent: us Keely Wilburn MD IMG BI PROCEDURES Edited Result - Final * (ABNORMAL) Lipid Panel with Reflex to Direct LDL (08/04/2024 9:55 AM EDT) Triglycerides 174(H) <150 mg/dL [facility] Comment:Desirable Triglyceri de: less than 150 mg/dLBorderline High Triglyceride 150-199 mg/dLHigh Triglyceride: 200-499 mg/dLVery High Triglyceride: greater than or equal to 5OO mg/dL Cholesterol 145 <200 mg/dL [facility] Comment:Desirable Cholestero l: less than 200 mg/dLBorderline High Cholesterol: 200-239 mg/dLHigh Cholesterol: greater than 239 mg/dL LDL Cholesterol Calculated 68 <100 mg/dL [facility] Comment:Desirable LDL: less than 100 mg/dLNear Optimal/Above Optimal LDL: 110- 129 mg/dLBorderline High LDL: 130-159 mg/dLHigh LDL: 160-189 mg/dLVery High LDL: greater than or equal to 190 mg/dL HDL Cholesterol 43 >40 mg/dL [facility] Comment:Desirable HDL: great er than 40 mg/dL Note: This HDL assay may give artificially low results in patients with liver disease. Blood 08/04/2024 9:55 AM EDT 08/04/2024 2:27 PM EDT us Keely Wilburn MD LAB BLOOD ORDERABLES Fin al Result Performing Organization Address [facility] Co de Phone Number [facility] [address] [place] [phone] * Hepatitis C Antibody with Reflex to HCV, RNA, Quantitative, Real-Time PCR (05/16/2024 11:17 AM EDT) Hepatitis C Antibody Nonreactive Nonreactive [facility] Comment:Antibodies to HCV no t detected; does not exclude early acuteHCV infection. Blood Venous blood specimen / Unknown 05/16/2024 11:17 AM EDT 05/16/2024 1:09 PM EDT Anusha Real MD LAB BLOOD ORDERABLES Final Res ult Performing Organization Address [facility] Co de Phone Number [facility] [address] [place] [phone] * (ABNORMAL) Hm Colonoscopy (02/06/2024) Colonoscopy Abnormal( A) Normal [facility] Comment:Tubular adenoma; neg ative for high grade dysplasia and carcinoma Keely Wilburn MD HEALTH MAINTENANCE Final Result Performing Organization Address [facility] Co de Phone Number [facility] [address] [place] [phone] * OCCULT BLOOD STOOL X3 (11/23/2019 3:00 PM EST) OCCULT BLOOD STOOL-1 NEG NEG [facility] OCCULT BLOOD STOOL-1 DATE 11/20/2019 [facility] OCCULT BLOOD STOOL-2 NEG NEG [facility] OCCULT BLOOD STOOL-2 DATE 11/21/2019 [facility] OCCULT BLOOD STOOL-3 NEG NEG [facility] OCCULT BLOOD STOOL-3 DATE 11/23/2019 [facility] 11/23/2019 3:00 PM EST Keely Wilburn MD HISTORICAL/NON ORDERABLE LABS Final Result [facility] [address] from Last 3 Months or Most Recently Relevant to Health Maintenance Insurance [facility] Care Teams Efficiency Engineer Relationship Specialty Start Date End Date Keely Wilburn MD [address] [place] [phone] PCP - General Family Medicine 10/27/19 [employer] 08/06/24
--- OUTSIDE RECORDS SUMMARY | 2025-01-02 07:14 | XMS_ITS | Encounter Summary ---
Author Organization [facility] Address [address] [place] [address] Phone Care Team Providers Care Properties Supervisor Name Role Phone Keely Wilburn MD Primary Care Provider + [phone] Encounter Details Date Type Department Care Team (Late Contact Info) Description 03/18/2024 Documentation Only [facility] [address] [place] [address] Juju Avila [address] [place] [phone] Social History Tobacco Use Types Packs/Day Years [...] Visit [facility] [address] [place] [address] Terrance Garcia MD [address] [place] [address] [place] [address] documented as of this encounter Visit Diagnoses Not on filedocumented in this encounter Care Teams Properties Supervisor Relationship Specialty Start Date End Date Keely Wilburn MD [address] [place] [phone] PCP - General Internal Medicine 02/11/20 documented as of this encounter
--- OUTSIDE RECORDS SUMMARY | 2025-01-02 07:14 | XMS_ITS | Encounter Summary ---
Author Organization [facility] Address [address] [place] [address] Phone Care Team Providers Care Deaf Interpreter Name Role Phone Keely Wilburn MD Primary Care Provider + [phone] Encounter Details Date Type Department Care Team (Late Contact Info) Description 03/18/2024 Documentation Only [facility] [address] [place] [address] Juju Avila [address] [place] [phone] Social History Tobacco Use Types Packs/Day Years [...] [facility] [address] [place] [address] Terrance Garcia MD [address] [place] [address] [place] [address] documented as of this encounter Visit Diagnoses Not on filedocumented in this encounter Care Teams Deaf Interpreter Relationship Specialty Start Date End Date Keely Wilburn MD [address] [place] [address] PCP - General Internal Medicine 02/11/20 documented as of this encounter
--- OUTSIDE RECORDS SUMMARY | 2025-01-02 07:14 | XMS_ITS | Encounter Summary ---
Author Organization [employer] Address [address] [place] [phone] Care Team Providers Care Associate Manager Affiliate Marketing Name Role Phone Keely Wilburn MD Primary Care Provider [phone] Reason for Visit * Reason Comments Pain Pain Encounter Details Date Type Department Care Team (Latest Contact Info) Description 12/23/2024 9:00 AM EST Office Visit Orthopedic Surgery - [place] [address] [place] [phone] Eloisa Chaudhari PA [address] [place] [phone] Primary osteoarthritis of both knees (Primary Dx) [...] follow-up. She ambulates with a walker. She Georgian- speaking and her daughter is interpreting. She reports her knees are actually feeling pretty good. She is undergoing a procedure in the next week for her right lower extremity for varicose veins and does see vascular. She does have diabetes. PAST MEDICAL/SURGICAL HISTORY: Patient Active Problem List Diagnosis Date Noted Anemia 10/03/2024 Asthma 10/03/2024 Diabetes mellitus type 2, uncomplicated ([facility]) 10/03/2024 Hypertension 10/03/2024 Closed fracture of lower end of humerus 08/11/2010 Past Surgical History: Procedure Laterality Date OTHER SURGICAL HISTORY PROCEDURE: DENIES PREVIOUS SURGERY OTHER SURGICAL HISTORY PROCEDURE: MO LIG/TRNSXJ FLP TUBE ABDL/VAG APPR UNI/BI MEDICATIONS [...] sunrise and Liang bilateral knees Comparison: X-rays [facility] many years ago Findings: Left knee mild to moderate osteoarthritis tricompartmental with chondrocalcinosis. Right knee moderate to severe tricompartmental osteoarthritis. Idamay view normal patellofemoral relationships mild arthritis. Impression: [...] Upcoming Encounters Date Type Department Care Team ([facility] st Contact Info) Description 01/27/2025 9:15 AM EDT Office Visit Orthopedic Surgery - [place] [address] [phone] Cr Bolton, DPM [address] [address] documented as of this encounter Visit Diagnoses Diagnosis Primary osteoarthritis of both knees- Primary documented in this encounter Care Teams Associate Manager Affiliate Marketing Relationship Specialty Start Date End Date Keely Wilburn MD [address] [facility] 1 [place] [address] PCP - General 03/01/22 documented as of this encounter
--- OUTSIDE RECORDS SUMMARY | 2025-01-02 07:14 | XMS_ITS | Encounter Summary ---
Author Organization [employer] Address [address] [facility] 7t [place] [address] Care Team Providers Care Channel Marketing Coordinator Name Role Phone Keely Wilburn MD Primary Care Provider + Reason for Visit * Reason Onset Date Comments Error (VOID this visit) 12/23/2024 Encounter Details Date Type Department Care Team (Late st Contact Info) Description 12/23/2024 Telephone [facility] 230 [place], [place] [phone] Corina Link, RN 230 [place] [address] Error (VOID this visit) Social History Tobacco [...] 10:30 AM EST Office Visit [facility] [address] [place] [address] Keely Wilburn MD [address] [place] [address] documented as of this encounter Visit Diagnoses Not on filedocumented in this encounter Care Teams Channel Marketing Coordinator Relationship Specialty Start Date End Date Keely Wilbrun MD [address] [place] [phone] PCP - General Family Medicine 10/27/19 [employer] 08/06/24 documented as of this encounter
--- OUTSIDE RECORDS SUMMARY | 2025-01-02 07:14 | XMS_ITS | Encounter Summary ---
Author Organization [employer] Address [address] [facility] [address] 7t [place] [address] Care Team Providers Care Linemarker Name Role Phone Keely Wilburn MD Primary Care Provider + Encounter Details Date Type Department Care Team (Late st Contact Info) Description 12/19/2024 Orders Only [facility] External Provider, [facility] Social History Tobacco Use Types Packs/Day [...] Description 01/15/2025 10:30 AM EST Office Visit [facility] 230 [place] [address] Keely Wilburn MD 230 [place], [place] [phone] documented as of this encounter Procedures Procedure [...] Hormone, Intact 125.4(H) 8.7 - 77.1 pg/mL [facility] 12/19/2024 11:0 0 AM EST 12/19/2024 11:01 AM EST Generic External Data Provider LAB BLOOD ORDERAB LES Final Result Performing Organization Address [facility] de Phone Number [facility] [address] [place] [phone] * (ABNORMAL) Sed Rate by Modified Urbanergren (12/19/2024 11:00 AM EST) Erythrocyte Sedimentation Rate 53(H) 0 - 20 MM/HR [facility] Comment:Patients with polycy themia and many hemoglobin abnormalitiesmay have depressed sed rates whereas patients with anemiamay have elevated sed rates. 12/19/2024 11:0 0 AM EST 12/19/2024 11:01 AM EST Generic External Data Provider LAB BLOOD ORDERAB LES Final Result Performing Organization Address [facility] Co de Phone Number [facility] [address] [place] [phone] * (ABNORMAL) C-reactive Protein (12/19/2024 11:00 AM EST) C Reactive Protein 0.55(H) < or = 0.50 mg/dL [facility] 12/19/2024 11:0 0 AM EST 12/19/2024 11:01 AM EST us Generic External Data Provider LAB BLOOD ORDERAB LES Final Result Performing Organization Address City/[facility] Co de Phone Number [facility] [address] [place] [phone] * Magnesium (12/19/2024 11:00 AM EST) Magnesium 1.6 1.6 - 2.6 mg/dL [facility] 12/19/2024 11:0 0 AM EST 12/19/2024 11:01 AM EST Generic External Data Provider LAB BLOOD ORDERAB LES Final Result Performing Organization Address [facility] Phone Number [facility] [address] [place] [phone] * (ABNORMAL) Comprehensive Metabolic Panel (12/19/2024 11:00 AM EST) Sodium 139 135 - 145 mmol/L [facility] Potassium 4.2 3.3 - 5.1 mmol/L [facility] Chloride 109(H) 96 - 108 mmol/L [facility] Carbon Dioxide 24 22 - 29 mmol/L [facility] Anion Gap 10(L) 12 - 20 [facility] Urea Nitrogen (BUN) 32(H) 9 - 16 mg/dL [facility] Creatinine, Serum 1.06 0.5 - 1.4 mg/dL [facility] Estimated Glomerular Filt Rate 50 [facility] Comment:Chronic Kidney Disea se: Estimated GFR < 60 mL/min/1.79o4Kctwcv Kidney Disease: Estimated GFR < 15 mL/min/1.73m2 Glucose 111 60 - 115 mg/dL [facility] Calcium 9.2 8.4 - 10.2 mg/dL [facility] Bilirubin, Total 0.4 0.0 - 1.0 mg/dL [facility] Aspartate Amino Transferase 22 5 - 31 U/L [facility] Alanine Aminotransferase 11 0 - 31 U/L [facility] Total Protein 7.7 6.5 - 8.0 g/dL [facility] Albumin Level 4.0 3.5 - 5.0 g/dL [facility] Alkaline Phosphatase 55 39 - 117 U/L [facility] 12/19/2024 11:0 0 AM EST 12/19/2024 11:01 AM EST us Generic External Data Provider LAB BLOOD ORDERAB LES Final Result [facility] [address] [place], [place] [phone] * (ABNORMAL) CBC auto differential (12/19/2024 11:00 AM EST) White Blood Count 7.3 4.8 - 10.8 X10*3/uL [facility] Red Blood Count 3.73(L) 4.20 - 5.50 X10*6/uL [facility] Hemoglobin 10.3(L) 12.0 - 16.0 g/dl [facility] Hematocrit 32.4(L) 37.0 - 47.0 % [facility] Mean Corpuscular Volume 86.9 80.0 - 98.0 fL [facility] Mean Corpuscular Hemoglobin 27.6 27.0 - 33.0 pg [facility] Mean Corpuscular HGB Conc 31.8 31.0 - 35.0 g/dl [facility] Red Cell Distribution Width 13.2 11.0 - 16.0 % [facility] Platelet Count 237 160 - 400 X10*3/uL [facility] Mean Platelet Volume 11.7 9.4 - 12.3 fL [facility] Neutrophils Percent Auto 45.1 45 - 73 % [facility] Imm Gran Pct Auto 0.3 0.0 - 0.4 % [facility] Lymphocytes Percent Auto 41.9(H) 20 - 40 % [facility] Monocytes Percent Auto 10.2 2 - 11 % [facility] Eosinophils Percent Auto 2.1 0 - 4 % [facility] Basophils Percent Auto 0.4 0 - 2 % [facility] NRBC Pct Auto 0.0 0.0 - 0.2 /100WBC [facility] Neutrophils Absolute Auto 3.3 2.0 - 8.3 x10*3/uL [facility] Imm Gran Abs Auto 0.02 0.00 - 0.03 X10*3/uL [facility] Lymphocytes Absolute Auto 3.0 1.2 - 4.9 X10*3/uL [facility] Monocytes Absolute Auto 0.7 0.1 - 1.2 X10*3/uL [facility] Eosinophils Absolute Auto 0.2 0.0 - 0.4 X10*3/uL [facility] Basophils Absolute Auto 0.0 0.0 - 0.2 X10*3/uL [facility] NRBC Abs Auto 0.000 0.0 - 0.012 X10*3/uL [facility] 12/19/2024 11:0 0 AM EST 12/19/2024 11:01 AM EST us Generic External Data Provider LAB BLOOD ORDERAB LES Final Result Performing Organization Address City/State/[facility] Co de Phone Number [facility] [address] [place] [phone] * XR HAND WRIST LT (12/19/2024 10:23 AM EST) Anatomical Region Laterality Modality Abdomen Radiographic Marilyn ging 12/19/2024 10:2 3 AM EST Narrative 12/19/2024 11:09 AM EST ? [facility] ?[address] ?[place] [address] ?XRay Report ? Signed ? Patient: Landeros,Adrianne ?MR#: [id number] ? : 1950 ?Acct:[id number] ? Age/Sex: 74 / F ?ADM Date: 02/07/25 ? Loc: HO.XRAY ? Attending Dr: Donna Albert MD ? Ordering Physician: Donna Albert MD ?? Date of Service: 12/19/24 ?? Procedure(s): XR hand wrist LT ?? Accession Number(s): [id number] ? cc: Donna Albert MD; Keely Wilburn [...] DD/ 1023 ? TD/TT: 12/19/24 1035 ? Hearing Aid Assistant: ? Procedure Note Chrissy, Image - 12/19/2024 [place] [address] XRay Report Signed Patient: Adrianne LanderosMR#: [id number] : 8Acct:[id number] Age/Sex: 74 / FADM Date: 12/19/24 Loc: HO.LEXY Attending Dr: Donna Albert MD Ordering Physician: Donna Albert MD Date of Service: 12/19/24 Procedure(s): XR hand wrist LT Accession Number(s): [id number] cc: Donna Albert MD; Keely Wilburn MD [...] 12/19/24 1107 DD/ 1023 TD/TT: 12/19/24 1035 Hearing Aid Assistant: [facility] External Provider IMG XR PROCEDURES Final Result * XR HAND WRIST RT (12/19/2024 10:23 AM EST) Anatomical Region Laterality Modality Abdomen Radiographic Marilyn ging 12/19/2024 10:2 3 AM EST Narrative 12/19/2024 10:56 AM EST ? [facility] ?[address] ?[place] [address] ?XRay Report ? Signed ? Patient: Landeros,Adrianne ?MR#: [id number] ? : 1950 ?Acct:[id number] ? Age/Sex: 74 / F ?ADM Date: 12/19/24 ? Loc: HO.XRAY ? Attending Dr: Donna Albert MD ? Ordering Physician: Donna Albetr MD ?? Date of Service: 12/19/24 ?? Procedure(s): XR hand wrist RT ?? Accession Number(s): [id number] ? cc: Donna Albert MD; Keely Wilburn [...] DD/ 1023 ? TD/TT: 12/19/24 1035 ? Hearing Aid Assistant: ? Procedure Note Chrissy, Image - 12/19/2024 [place] [address] XRay Report Signed Patient: Adrianne LanderosMR#: [id number] : 1950cct:[id number] Age/Sex: 74 / FADM Date: 12/19/24 Loc: HO.LEXY Attending Dr: Donna Albert MD Ordering Physician: Donna Albert MD Date of Service: 12/19/24 Procedure(s): XR hand wrist RT Accession Number(s): [id number] cc: Donna Albert MD; Keely Wilburn MD [...] 12/19/24 1054 DD/ 1023 TD/TT: 12/19/24 1035 Hearing Aid Assistant: [facility] External Provider IMG XR PROCEDURES Final Result documented in this encounter Visit Diagnoses Not on filedocumented in this encounter Care Teams Linemarker Relationship Specialty Start Date End Date Keely Wilburn MD [address] [place] [phone] PCP - General Family Medicine 10/27/19 [employer] 08/06/24 documented as of this encounter
--- OUTSIDE RECORDS SUMMARY | 2025-01-02 07:14 | XMS_ITS | Encounter Summary ---
Author Organization [employer] Address [address] [facility] [address] 7t [place] [address] Care Team Providers Care Senior Oracle Soa Developer Name Role Phone Keely Wilburn MD Primary Care Provider + Reason for Visit * Reason Onset Date Comments Referral 12/08/2024 order 12/08/2024 Encounter Details Date Type Department Care Team (Late st Contact Info) Description 12/08/2024 Telephone [facility] [address] [place], [place] [phone] Keely Wilburn MD [address] [place], [place] [phone] Referral; order Social History Tobacco Use Types [...] more info provided. Any questions contact Ashlyn Tamazight documented in this encounter Plan of Treatment Upcoming Encounters Date Type Department Care Team (Late st Contact Info) Description 01/15/2025 10:30 AM EST Office Visit [facility] [address] [place] [address] Keely Wilburn MD [address] [place] [address] documented as of this encounter Visit Diagnoses Not on filedocumented in this encounter Care Teams Senior Oracle Soa Developer Relationship Specialty Start Date End Date Keely Wilburn MD [address] [place] [address] PCP - General Family Medicine 10/27/19 [employer] 08/06/24 documented as of this encounter
--- OUTSIDE RECORDS SUMMARY | 2025-01-02 07:14 | XMS_ITS | Encounter Summary ---
Author Organization [employer] Address [address] [facility] 7t [place] [address] Care Team Providers Care Law Librarian Name Role Phone Keely Wilburn MD Primary Care Provider + Reason for Visit * Reason Onset Date Comments Hospital Follow-up 12/08/2024 Encounter Details Date Type Department Care Team ([facility] st Contact Info) Description 12/08/2024 Telephone [facility] 230 [place], [place] [phone] Keely Wilburn MD [address] [place], [place] [phone] Hospital Follow-up Social History Tobacco Use Types [...] pt daughter requesting a HDF appt. Hospital: [place], [place] Date of admission: 12/02 Discharge date: 12/05 Diagnosed: Diarrhea, Vomiting, Abdominal Pain, Chest Pain, Dizziness *Send message to [place] Clinical Care Coordinators documented in this encounter Plan of Treatment Upcoming Encounters Date Type Department Care Team (Late st Contact Info) Description 01/15/2025 10:30 AM EST Office Visit [facility] [address] [place] [phone] Keely Wilburn MD [address] [place] [address] documented as of this encounter Visit Diagnoses Not on filedocumented in this encounter Care Teams Law Librarian Relationship Specialty Start Date End Date Keely Wilburn MD [address] [place] [phone] PCP - General Family Medicine 10/27/19 [employer] 08/06/24 documented as of this encounter
--- OUTSIDE RECORDS SUMMARY | 2025-01-02 07:14 | XMS_ITS | Encounter Summary ---
Author Organization [employer] Address [address] [facility] 7t [place] [address] Care Team Providers Care Personnel Psychologist Name Role Phone Keely Wilburn MD Primary Care Provider + Reason for Visit * Reason Onset Date Comments Chart prep 12/17/2024 Encounter Details Date Type Department Care Team ([facility] st Contact Info) Description 12/17/2024 Telephone [facility] [address] [place], [place] [phone] Keely Wilburn MD 230 [place] [address] Chart prep Social History Tobacco Use Types [...] Description 01/15/2025 10:30 AM EST Office Visit [facility] [address] [place] [phone] Keely Wilburn MD [address] [place] [address] documented as of this encounter Visit Diagnoses Not on filedocumented in this encounter Care Teams Personnel Psychologist Relationship Specialty Start Date End Date Keely Wilburn MD [address] [place] [address] PCP - General Family Medicine 10/27/19 [employer] 08/06/24 documented as of this encounter
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
--- OUTSIDE RECORDS SUMMARY | 2025-01-02 07:14 | XMS_ITS | Encounter Summary ---
Author Organization [facility] Address [address] [place] [address] Phone Care Team Providers Care Batch Mixer Operator Name Role Phone Keely Wilburn MD Primary Care Provider + [phone] Encounter Details Date Type Department Care Team (Late st Contact Info) Description 10/11/2021 Documentation Only [facility] [address] [place] [address] Terrance Garcia MD [address] [place] [address] [place] [address] Social History Tobacco Use Types [...] Visit [facility] [address] [place] [address] Terrance Garcia MD [address] [facility] [address] [place] [address] documented as of this encounter Visit Diagnoses Not on filedocumented in this encounter Care Teams Batch Mixer Operator Relationship Specialty Start Date End Date Keely Wilburn MD [address] [place] [phone] PCP - General Internal Medicine 02/11/20 documented as of this encounter
--- OUTSIDE RECORDS SUMMARY | 2025-01-02 07:14 | XMS_ITS | Encounter Summary ---
Author Organization [employer] Address [address] [facility] 7t [place] [address] Care Team Providers Care Summer Law Clerk Name Role Phone Keely Wilburn MD Primary Care Provider + Reason for Referral * Imaging (Urgent) - Authorized Specialty Diagnoses / Procedures Referred By Contac t Referred To Contact Radiology Diagnoses Pancreatic lesion Kidney lesion, [place], bilateral Procedures MR Abdomen w/ and w/o Contrast Keely Wilburn MD [address] [place] [address] Phone: tel: fax: [facility] Referral ID Status Reason Start Date Expiration Date V isits Requested Visits Authorized [id number] Authorized 12/26/2024 12/26/2025 1 1 Reason for Visit * Reason Onset Date Comments Hospital Follow-up 12/18/2024 Encounter Details Date Type Department Care Team (Late st Contact Info) Description 12/18/2024 Telephone [facility] [address] [place], [place] [phone] Keely Wilburn MD [address] [place], [place] [phone] Hospital Follow-up Social History Tobacco Use Types [...] Telephone Encounter - Corina Link RN - 12/26/2024 4:24 PM EST TC placed to [facility] hospital [phone], spoke to daughter Ashlyn (on HIPAA) in regards to below message. Daughter verbalized understanding and is aware she will receive a call for scheduling of the MRI from the hospital. Daughter advised once MRI is complete and results are available, she will receive a call with results as well. Daughter to f/u PRN. * Addendum Note - Keely Wilburn MD - 12/26/2024 4:15 PM ESTAddended by: KEELY WILBURN on: 12/26/2024 04:15 PM Modules accepted: Orders * Telephone Encounter - Keely Wilburn MD - 12/26/2024 4:08 PM EST Images from the original note were not included. Corina Link RN Keely Wilburn MD Per [facility] discharge: PCP Follow-Up/Heads-Up Follow up clinically and titrate medications for HTN and DM. CT abd/pelvis reported 6 mm hypodense lesion in the pancreas. Further evaluation with a dedicated MRI with and without contrast is recommended. Multiple bilateral renal lesions some of which are clearly cystic and some of which are indeterminate and may represent complicated cysts. A neoplastic lesion cannot be excluded. Follow-up is recommended. MRI was NOT ordered by hospital, they are leaving it up to PCP to order (see above). Please advise if agreeable to order MRI. Thank you! RN notes above and fu call appreciated. Please reach out to daughter and patient and tell them thatI will order mRI abd/pelvic to evaluate renal and pancreatic mass seen in the CT scan during recenthtal stay( showed a hypodense lesion in the pancreas + bl renal lesions/?cysts). * Telephone Encounter - Mae Capps RN - 12/18/2024 9:34 AM EST TC placed to pt via BLS veterinary medicine doctor (ID#[id number]) regarding r/s of HDF. No answer, LVM to call office back and ask to speak to the red team nurses. * Telephone Encounter - Marco Antonio Montanez - 12/18/2024 9:14 AM EST Tc from daughter had to cancel 12/18 HDF visit and needs to r/s. . Costume Specialist offered two other dates and times and she declined. Requesting call from nurse. documented in this encounter Plan of Treatment Upcoming Encounters Date Type Department Care Team (Late st Contact Info) Description 01/15/2025 10:30 AM EST Office Visit [facility] [address] [place] [address] Keely Wilburn MD [address] [place] [address] Scheduled Orders Name Type Priority Associated Diagnoses Orde r Schedule MR Abdomen w/ and w/o Contrast Imaging Urgent Pancreatic lesion Kidney lesion, [place], bilateral Expected: 12/26/2024 (Approximate), Expires: 12/26/2025 documented as of this encounter Visit Diagnoses Diagnosis Pancreatic lesion- Primary Kidney lesion, [place], bilateral documented in this encounter Care Teams Summer Law Clerk Relationship Specialty Start Date End Date Keely Wilburn MD [address] [place] [phone] PCP - General Family Medicine 10/27/19 [employer] 08/06/24 documented as of this encounter
--- OUTSIDE RECORDS SUMMARY | 2025-01-02 07:15 | XMS_ITS | Encounter Summary ---
Author Organization [employer] Address [address] 7[address] [place] [address] Care Team Providers Care Elementary Supervisor Name Role Phone Keely Wilburn MD Primary Care Provider + Reason for Visit * Reason Onset Date Comments Nurse Triage 07/07/2024 Encounter Details Date Type Department Care Team (Late st Contact Info) Description 07/07/2024 Telephone [facility] [address] [place], [place] [phone] Keely Wilburn MD [address] [place] [address] Nurse Triage Social History Tobacco Use Types [...] 07/07/2024 12:02 PM EDT Triage call with shoutr Test Data Developer ID [id number] Pt blood sugar this morning was 302. [...] - 07/07/2024 10:29 AM EDT TC from [facility] with [employer] [facility] reports high blood sugars over 200 . Todays Blood Sugar without fasting was 302 Pt non symptomatic at the moment documented in this encounter Plan of Treatment Upcoming Encounters Date Type Department Care Team (Late st Contact Info) Description 01/15/2025 10:30 AM EST Office Visit [facility] [address] [place], [place] [phone] Keely Wilburn MD [address] [place], [place] [phone] documented as of this encounter Visit Diagnoses Not on filedocumented in this encounter Care Teams Elementary Supervisor Relationship Specialty Start Date End Date Keely Wilburn MD [address] [place], [place] [phone] PCP - General Family Medicine 10/27/19 [employer] 08/06/24 documented as of this encounter
--- OUTSIDE RECORDS SUMMARY | 2025-01-02 07:15 | XMS_ITS ---
Author Name Naveed ENRIKESherry Address [address] [place] [address] Phone [phone] [facility] Care Team Providers Care Starch And Prosize Mixer Name Role Phone Sherry Lucio Unavailable [phone] Unavailable Unavailable Unavailable Reason for Referral Not [...] No Data Available BD AUTOSHIELD DUO NDL [id number] USE WITH INSULIN TWICE DAILY 2022-09-05 No Data Meseret ilable Benazepril 20 mg Tab TAKE 1 TABLET (20 M G) BY MOUTH IN THE MORNING. DC BENAZEPRIL/HCTZ 2022-11-16 No Data Available Lantus SoloStar 100 UNIT/ML Solution Pen-injector INJECT 18 UNITS SUBCUTANEOUSLY ONCE DAILY 2023-05-31 No Data Available amLODIPine Besylate 10 mg Tab TAKE 1/2 TABLET BY MOUTH DAILY 2022-08-24 No Data Available Cmpkwcvgyg-ETWS-Vuwkvsjt 50/325/40 mg Tab TAKE 1 TABLET BY [...] No Data Available BD AUTOSHIELD DUO NDL [id number] USE WITH INSULIN TWICE DAILY 2023-12-25 No [...] Active 2023-12-16 N/A Other problems related to co dical facilities and other health care Active 2024-01-17 N/A Severe persistent asthma, un complicatedChronic bronchitis-Allergic bronchitis with acute exacerbation Active 2023-12-04 N/A COVID Active 2024-01-17 N/A Other problems related to co dical facilities and other health care Active 2024-01-22 N/A Encounters Encounters Type Facility Date of Service Diagnosis/Co mplaint New patient,40-59min; chronic exacerbation, 2 stable chronic or 1 acute illness add add modifier 95 for video (do not use for phone, instead use 44609-84) [facility]2023 Severe persistent asthma, uncomplicatedBenign paroxysmal vertigo, [...] (do not use for phone, instead use 36940-56) [facility] New patient,40-59min; chronic exacerbation, 2 stable chronic or 1 acute illness add add modifier 95 for video (do not use for phone, instead use 62161-89) [facility] 12[place]04/2023 New patient,40-59min; chronic exacerbation, 2 stable chronic or 1 acute illness add add modifier 95 for video (do not use for phone, instead use 17996-80) [facility] 12[place]/2023 New patient,40-59min; chronic exacerbation, 2 stable chronic or 1 acute illness add add modifier 95 for video (do not use for phone, instead use 46822-27) [facility] [place] 12/04/2023 New patient,40-59min; chronic exacerbation, 2 stable chronic or 1 acute illness add add modifier 95 for video (do not use for phone, instead use 26664-82) [facility] 12/04/2023 New patient,40-59min; chronic exacerbation, 2 stable chronic or 1 acute illness add add modifier 95 for video (do not use for phone, instead use 94888-97) [facility] 12/04/2023 New patient,40-59min; chronic exacerbation, 2 stable chronic or 1 acute illness add add modifier 95 for video (do not use for phone, instead use 61937-84) [facility] 12/04/2023 New patient,40-59min; chronic exacerbation, 2 stable chronic or 1 acute illness add add modifier 95 for video (do not use for phone, instead use 64184-29) [facility] 12/04/2023 New patient,40-59min; chronic exacerbation, 2 stable chronic or 1 acute illness add add modifier 95 for video (do not use for phone, instead use 84094-47) [facility] 12/04/2023 No Data Available [facility] [place] 01/15/2024 Severe persistent asthma, uncomplicatedUnspecified chronic bronchitis No Data Available [facility] 01/15/2024 No Data Available [facility] [place] 01/17/2024 Severe persistent asthma, uncomplicatedUnspecified chronic bronchitisBenign [...] and other health care No Data Available [facility] [place] 01/17/2024 No Data Available [facility] [place] 01/17/2024 No Data Available [facility] [place] 01/17/2024 No Data Available [facility] [place] 01/18/2024 Severe persistent asthma, uncomplicatedUnspecified chronic bronchitisUnspecified [...] and other health care No Data Available [facility] [place] 01/18/2024 No Data Available [facility] [place] 01/18/2024 No Data Available [facility] [place] 01/18/2024 No Data Available [facility] [place] 01/21/2024 Severe persistent asthma, uncomplicatedUnspecified chronic bronchitisUnspecified [...] and other health care No Data Available [facility] [place] 01/21/2024 Vital Signs Date of Collection Vitals [...] tive Time Current Smoking Status Never smoker 2024-12-14 1 Sex Female History of Procedures Procedures Service Procedure code Service date Servicing provider Phone# New patient,40-59min; chronic exacerbation, 2 stable chronic or 1 acute illness add add modifier 95 for video (do not use for phone, instead use 22240-50) 16545 2023-12-04 No Data Available No Data Availa [...] No Data Avail able No Data Available 56416 2024-01-15 No Data Available No Data Available Medication List Documented (1159F) 1159F 2024-01-15 No Data Available No Data Meseret ilable No Data Available [id number] 2024-01-17 No Data Available No Data Available Medication List Documented (1159F) 1159F 2024-01-17 No Data Available No Data Meseret ilable Functional Status Assessed (1170F) 1170F 2024-01-17 No Data Available No Data Avail able Most recent A1c (HbA1c) or GMI level <7% (3044F) 3044F 2024-01-17 No Data Available No Data Availa ble No Data Available [id number] 2024-01-18 No Data Available No Data Available SBP 130-139 (3075F) 3075F 2024-01-18 No Data Availabl e No Data Available DBP <80 (3078F) 3078F 2024-01-18 No Data Available No Data Available Functional Status Assessed (1170F) 1170F 2024-01-18 No Data Available No Data Avail able No Data Available [id number] 2024-01-21 No Data Available No Data Available [...] and one episode of vomiting this am. [facility] tested member this am and she is [...] and one episode of vomiting this am. 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 f/u sched 01/21/24-call CB 04/06 for change in medical statusCall CB if sob, fever, wheezing 2024-01-21 06:26:06 Phone (patient, pare nt, or guardian); 5-10 minutes of medical discussion (no modifier 95)Continue to see PCP. [facility] or [facility] [...] and one episode of vomiting this am. 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 f/u sched 01/21/24-call CB 04/06 for [...]
--- OUTSIDE RECORDS SUMMARY | 2025-01-02 07:15 | XMS_ITS | Encounter Summary ---
Author Organization [employer] Address [address] [facility] [address]t [place] [address] Care Team Providers Care Solderer Assembler Name Role Phone Keely Wilburn MD Primary Care Provider + Reason for Visit * Reason Comments Med Change Request Encounter Details Date Type Department Care Team (Late st Contact Info) Description 11/06/2023 Refill [facility] [address] [place], [place] [phone] Keely Wilburn MD [address] [place], [place] [phone] Osteopenia of neck of femur, unspecified laterality [...] EST Office Visit [facility] [address] [place] [phone] Keely Wilburn MD [address] [place] [address] documented as of this encounter Visit Diagnoses Diagnosis Osteopenia of neck of femur, unspecified laterality documented in this encounter Care Teams Solderer Assembler Relationship Specialty Start Date End Date Keely Wilburn MD [address] [place] [phone] PCP - General Family Medicine 10/27/19 [employer] 08/06/24 documented as of this encounter
--- OUTSIDE RECORDS SUMMARY | 2025-01-02 07:15 | XMS_ITS | Encounter Summary ---
Author Organization [employer] Address [address] [facility] [address] 7t [place] [address] Care Team Providers Care Office Technologist Name Role Phone Keely Wilburn MD Primary Care Provider + Reason for Visit * Reason Comments Med Refill Encounter Details Date Type Department Care Team (Late st Contact Info) Description 12/09/2023 Refill [facility] [address] [place], [place] [phone] Keely Wilburn MD [address] [place], [place] [phone] Osteopenia of neck of femur, unspecified laterality [...] [facility] [address] [place] [address] Keely Wilburn MD [address] [place] [address] documented as of this encounter Visit Diagnoses Diagnosis Osteopenia of neck of femur, unspecified laterality documented in this encounter Care Teams Office Technologist Relationship Specialty Start Date End Date Keely Wilburn MD [address] [place] [address] PCP - General Family Medicine 10/27/19 [facility] 08/06/24 documented as of this encounter
--- OUTSIDE RECORDS SUMMARY | 2025-01-02 07:15 | XMS_ITS | Encounter Summary ---
Author Organization [email or web address] Address [address] [facility] 7t [place] [address] Care Team Providers Care Oil Lease Broker Name Role Phone Keely Wilburn MD Primary Care Provider + Reason for Visit * Reason Onset Date Comments Durable Medical Equipment 12/08/2024 DME Re quest: Hand Held Shower Head Encounter Details Date Type Department Care Team (Late st Contact Info) Description 12/08/2024 Telephone [facility] [address] [place], [place] [phone] Keely Wilburn MD [address] [place] [address] Durable Medical Equipment (DME Request: Hand Held [...] requesting hose hand held shower. Any questions [phone] Nepali documented in this encounter Plan of Treatment Upcoming Encounters Date Type Department Care Team (Late st Contact Info) Description 01/15/2025 10:30 AM EST Office Visit [facility] [address] [place] [address] Keely Wilburn MD [address] [place] [address] documented as of this encounter Visit Diagnoses Not on filedocumented in this encounter Care Teams Oil Lease Broker Relationship Specialty Start Date End Date Keely Wilburn MD [address] [place] [address] PCP - General Family Medicine 10/27/19 [employer] 08/06/24 documented as of this encounter
--- OUTSIDE RECORDS SUMMARY | 2025-01-02 07:15 | XMS_ITS | Encounter Summary ---
Author Organization [employer] Address [address] [facility] [address] 7t [place] [address] Care Team Providers Care Suspender Cutter Name Role Phone Keely Wilburn MD Primary Care Provider + Reason for Visit * Reason Comments Med Refill Encounter Details Date Type Department Care Team (Late st Contact Info) Description 08/11/2024 Refill [facility] [address] [place], [place] [phone] Keely Wilburn MD [address] [place], [place] [phone] Benign paroxysmal positional vertigo, unspecified laterality Social [...] Description 01/15/2025 10:30 AM EST Office Visit [facility] [address] [place] [address] Keely Wilburn MD [address] [place] [phone] documented as of this encounter Visit Diagnoses Diagnosis Benign paroxysmal positional vertigo, unspecified laterality documented in this encounter Care Teams Suspender Cutter Relationship Specialty Start Date End Date Keely Wilburn MD [address] [place] [address] PCP - General Family Medicine 10/27/19 [email or web address] 08/06/24 documented as of this encounter
--- OUTSIDE RECORDS SUMMARY | 2025-01-02 07:15 | XMS_ITS | Encounter Summary ---
Author Organization [employer] Address [address] [facility] [address] 7t [place] [address] Care Team Providers Care Resident Assistant Name Role Phone Keely Wilburn MD Primary Care Provider + Reason for Visit * Reason Comments Med Refill Encounter Details Date Type Department Care Team (Late st Contact Info) Description 01/18/2024 Refill [facility] [address] [place], [place] [phone] Keely Wilburn MD [address] [place], [place] [phone] Other postherpetic nervous system involvement Social History [...] Office Visit [facility] [address] [place] [phone] Keely Wilburn MD [address] [place] [address] documented as of this encounter Visit Diagnoses Diagnosis Other postherpetic nervous system involvement documented in this encounter Care Teams Resident Assistant Relationship Specialty Start Date End Date Keely Wilburn MD [address] [place] [address] PCP - General Family Medicine 10/27/19 [employer] 08/06/24 documented as of this encounter
--- OUTSIDE RECORDS SUMMARY | 2025-01-02 07:15 | XMS_ITS | Encounter Summary ---
Author Organization [employer] [facility] Address [address] [facility] 7t [place] [address] Care Team Providers Care Tire Bladder Maker Name Role Phone Keely Wilburn MD Primary Care Provider + Encounter Details Date Type Department Care Team (Late Contact Info) Description 07/10/2023 Telephone [facility] [address] [place] [address] [phone] Katty Gutierrez LPN Social History Tobacco Use [...] EST Office Visit [facility] [address] [place] [address] [phone] Keely Wilburn MD [address] [place] [address] documented as of this encounter Visit Diagnoses Not on filedocumented in this encounter Care Teams Tire Bladder Maker Relationship Specialty Start Date End Date Keely Wilburn MD [address] [place] [address] PCP - General Family Medicine 10/27/19 [facility] 08/06/24 documented as of this encounter
--- OUTSIDE RECORDS SUMMARY | 2025-01-02 07:15 | XMS_ITS | Encounter Summary ---
Author Organization [employer] Address [address] [facility] [address] 7t [place] [address] Care Team Providers Care Clinical Cytogenetics Director Name Role Phone Keely Wilburn MD Primary Care Provider + Reason for Visit * Reason Comments Med Refill Encounter Details Date Type Department Care Team (Late st Contact Info) Description 07/08/2024 Refill [facility] [address] [place], [place] [phone] Anusha Real MD [address] [place], [place] [phone] Benign paroxysmal positional vertigo, unspecified laterality Social [...] Description 01/15/2025 10:30 AM EST Office Visit [facility] [address] [place] [address] Keely Wilburn MD [address] [place] [phone] documented as of this encounter Visit Diagnoses Diagnosis Benign paroxysmal positional vertigo, unspecified laterality documented in this encounter Care Teams Clinical Cytogenetics Director Relationship Specialty Start Date End Date Keely Wilburn MD [address] [place] [phone] PCP - General Family Medicine 10/27/19 [employer] 08/06/24 documented as of this encounter
--- OUTSIDE RECORDS SUMMARY | 2025-01-02 07:15 | XMS_ITS | Encounter Summary ---
Author Organization [employer] Address [address] [facility] 7t [place] [address] Care Team Providers Care Button Cutter Name Role Phone Keely Wilburn MD Primary Care Provider + Reason for Visit * Reason Comments Med Refill Encounter Details Date Type Department Care Team (Late st Contact Info) Description 07/16/2024 Refill [facility] [address] [place], [place] [phone] Keely Wilburn MD [address] [place], [place] [phone] Type 2 diabetes mellitus with hyperglycemia, with long-term current use of insulin ([facility]) Social History Tobacco Use Types [...] Description 01/15/2025 10:30 AM EST Office Visit [facility] [address] [place] [address] [phone] Keely Wilburn MD [address] [place] [address] documented as of this encounter Visit Diagnoses Diagnosis Type 2 diabetes mellitus with hyperglycemia, with long-term current use of insulin ([facility]) documented in this encounter Care Teams Button Cutter Relationship Specialty Start Date End Date Keely Wilburn MD [address] [place] [address] PCP - General Family Medicine 10/27/19 [employer] 08/06/24 documented as of this encounter
--- OUTSIDE RECORDS SUMMARY | 2025-01-02 07:15 | XMS_ITS | Encounter Summary ---
Author Organization [employer] Address [address] [facility] [address] 7[address] [place] [address] Care Team Providers Care Physical Therapy Instructor Name Role Phone Keely Wilburn MD Primary Care Provider + Encounter Details Date Type Department Care Team (Late st Contact Info) Description 11/08/2023 Abstract [facility] [address] [place], [place] [phone] Keely Wilburn MD [address] [place], [place] [phone] Social History Tobacco Use Types Packs/Day Years [...] 10:30 AM EST Office Visit [facility] [address] [place] [address] Keely Wilburn MD [address] [place] [phone] documented as of this encounter Visit Diagnoses Not on filedocumented in this encounter Care Teams Physical Therapy Instructor Relationship Specialty Start Date End Date Keely Wilburn MD [address] [place] [address] PCP - General Family Medicine 10/27/19 [employer] 08/06/24 documented as of this encounter
--- OUTSIDE RECORDS SUMMARY | 2025-01-02 07:15 | XMS_ITS | Encounter Summary ---
Author Organization [employer] Address [address] [facility] 7t [place] [address] Care Team Providers Care Rn Military Name Role Phone Keely Wilburn MD Primary Care Provider + Reason for Visit * Reason Comments Med Refill Encounter Details Date Type Department Care Team (Late st Contact Info) Description 07/08/2024 Refill [facility] [address] [place], [place] [phone] Keely Wilburn MD [address] [place], [place] [phone] Type 2 diabetes mellitus with hyperglycemia, with long-term current use of insulin ([facility]); Slow transit constipation Social History Tobacco Use [...] Description 01/15/2025 10:30 AM EST Office Visit [facility] [address] [place] [address] Keely Wilburn MD [address] [place] [address] documented as of this encounter Visit Diagnoses Diagnosis Type 2 diabetes mellitus with hyperglycemia, with long-term current use of insulin ([facility]) Slow transit constipation documented in this encounter Care Teams Rn Military Relationship Specialty Start Date End Date Keely Wilburn MD [address] [place] [address] [phone] PCP - General Family Medicine 10/27/19 [employer] 08/06/24 documented as of this encounter
--- OUTSIDE RECORDS SUMMARY | 2025-01-02 07:15 | XMS_ITS | Encounter Summary ---
Author Organization [employer] Address [facility] [address] [place] [address] Care Team Providers Care Transitional Studies Instructor Name Role Phone Keely Wilburn MD Primary Care Provider + Reason for Visit * Reason Comments Med Change Request Encounter Details Date Type Department Care Team ([facility] st Contact Info) Description 11/09/2023 Refill [facility] [address] [place], [place] [phone] Kaci Le, [address] [place] [address] Type 2 diabetes mellitus with other specified complication, 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 ([facility]) Social History Tobacco Use [...] EST Office Visit [facility] 230 [place] [address] Keely Wilburn MD [address] [place] [address] documented as of this encounter Visit Diagnoses Diagnosis Type 2 diabetes mellitus with other specified complication, 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
--- OUTSIDE RECORDS SUMMARY | 2025-01-02 07:15 | XMS_ITS | Encounter Summary ---
Author Organization [employer] Address [address] [facility] [address] 7t [place] [address] Care Team Providers Care Optical Instruments Supervisor Name Role Phone Keely Wilburn MD Primary Care Provider + Reason for Visit * Reason Comments Med Refill Encounter Details Date Type Department Care Team (Late st Contact Info) Description 08/06/2024 Refill [facility] 230 [place], [place] [phone] Keely Wilburn MD 230 [place], [place] [phone] Benign paroxysmal positional vertigo, unspecified laterality Social [...] Description 01/15/2025 10:30 AM EST Office Visit [facility] [address] [place] [phone] Keely Wilburn MD [address] [place] [phone] documented as of this encounter Visit Diagnoses Diagnosis Benign paroxysmal positional vertigo, unspecified laterality documented in this encounter Care Teams Optical Instruments Supervisor Relationship Specialty Start Date End Date Keely Wilburn MD [address] [place] [address] PCP - General Family Medicine 10/27/19 [employer] 08/06/24 documented as of this encounter
--- OUTSIDE RECORDS SUMMARY | 2025-01-02 07:15 | XMS_ITS | Encounter Summary ---
Author Organization [employer] Address 75 [facility] 7t [place] [address] Care Team Providers Care Percolator Operator Name Role Phone Keely Wilburn MD Primary Care Provider + Reason for Visit * Reason Comments Med Refill Encounter Details Date Type Department Care Team (Late st Contact Info) Description 08/20/2024 Refill [facility] 230 [place], [place] [phone] Keely Wilburn MD 230 [place], [place] [phone] Benign paroxysmal positional vertigo, unspecified laterality; Type 2 diabetes mellitus with other specified complication, 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 ([facility]) Social History Tobacco Use Types [...] Office Visit [facility] [address] [place] [address] Keely Wilburn MD [address] [place] [phone] documented as of this encounter Visit Diagnoses Diagnosis Benign paroxysmal positional vertigo, unspecified laterality Type 2 diabetes mellitus with other specified complication, 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
--- OUTSIDE RECORDS SUMMARY | 2025-01-02 07:15 | XMS_ITS | Encounter Summary ---
Author Organization [employer] Address [address] [facility] [address] 7t [place] [address] Care Team Providers Care Batch And Furnace Operator Name Role Phone Keely Wilburn MD Primary Care Provider + Reason for Visit * Reason Comments Med Refill Encounter Details Date Type Department Care Team (Late st Contact Info) Description 05/08/2024 Refill [facility] 230 [place], [place] [phone] Keely Wilburn MD 230 [place], [place] [phone] Osteopenia of neck of femur, unspecified laterality [...] 01/15/2025 10:30 AM EST Office Visit [facility] [address] [place] [address] Keely Wilburn MD [address] [place] [phone] documented as of this encounter Visit Diagnoses Diagnosis Osteopenia of neck of femur, unspecified laterality documented in this encounter Care Teams Batch And Furnace Operator Relationship Specialty Start Date End Date Keely Wilburn MD [address] [place] [phone] PCP - General Family Medicine 10/27/19 [employer] 08/06/24 documented as of this encounter
--- OUTSIDE RECORDS SUMMARY | 2025-01-02 07:15 | XMS_ITS | Encounter Summary ---
Author Organization [employer] Address 75 [facility] 7t [place] [address] Care Team Providers Care Second Baller Name Role Phone Keely Wilburn MD Primary Care Provider + Reason for Visit * Reason Comments Med Refill Encounter Details Date Type Department Care Team (Late st Contact Info) Description 07/09/2024 Refill [facility] 230 [place], [place] [phone] Keely Wilburn MD 230 [place], [place] [phone] Slow transit constipation; Type 2 diabetes mellitus with hyperglycemia, with long-term current use of insulin ([facility]) Social History Tobacco Use Types Packs/Day [...] EST Office Visit [facility] [address] [place] [address] Keely Wilburn MD [address] [place] [address] documented as of this encounter Visit Diagnoses Diagnosis Slow transit constipation Type 2 diabetes mellitus with hyperglycemia, with long-term current use of insulin ([facility]) documented in this encounter Care Teams Second Baller Relationship Specialty Start Date End Date Keely Wilburn MD [address] [place] [address] [phone] PCP - General Family Medicine 10/27/19 [employer] 08/06/24 documented as of this encounter
--- OUTSIDE RECORDS SUMMARY | 2025-01-02 07:15 | XMS_ITS | Encounter Summary ---
Author Organization [employer] Address [address] [facility] [address] 7t [place] [address] Care Team Providers Care Industrial Garage Servicer Name Role Phone Keely Wilburn MD Primary Care Provider + Encounter Details Date Type Department Care Team (Late st Contact Info) Description 05/07/2024 Telephone [facility] 230 [place], [place] [phone] Keely Wilburn MD 230 [place], [place] [phone] Social History Tobacco Use Types Packs/Day Years [...] contact # if there is any questions [phone] documented in this encounter Plan of Treatment Upcoming Encounters Date Type Department Care Team (Late st Contact Info) Description 01/15/2025 10:30 AM EST Office Visit [facility] [address] [place] [phone] Keely Wilburn MD [address] [place] [phone] documented as of this encounter Visit Diagnoses Not on filedocumented in this encounter Care Teams Industrial Garage Servicer Relationship Specialty Start Date End Date Keely Wilburn MD [address] [place] [phone] PCP - General Family Medicine 10/27/19 [employer] 08/06/24 documented as of this encounter
--- OUTSIDE RECORDS SUMMARY | 2025-01-02 07:15 | XMS_ITS | Encounter Summary ---
Author Organization [employer] Address [address] [facility] [address] 7t [place] [address] Care Team Providers Care Supervisor Parachute Manufacturing Name Role Phone Keely Wilburn MD Primary Care Provider + Reason for Visit * Reason Onset Date Comments Durable Medical Equipment 08/08/2024 Encounter Details Date Type Department Care Team (Late st Contact Info) Description 08/08/2024 Telephone [facility] 230 [place], [place] [phone] Keely Wilburn MD 230 [place], [place] [phone] Durable Medical Equipment Social History Tobacco Use [...] Description 01/15/2025 10:30 AM EST Office Visit [facility] 230 [place] [address] Keely Wilburn MD 230 [place] [address] documented as of this encounter Visit Diagnoses Not on filedocumented in this encounter Care Teams Supervisor [employer]ach[employer] Manufacturing Relationship Specialty Start Date End Date Keely Wilburn MD 230 [place] [address] PCP - General Family Medicine 10/27/19 [employer] 08/06/24 documented as of this encounter
--- OUTSIDE RECORDS SUMMARY | 2025-01-02 07:15 | XMS_ITS | Clinical Summary ---
Author Organization [address] [place] [address] Address [address] [place] [address] Phone Care Team Providers Care Insurance Advisor Name Role Phone Keely Wilburn MD [...] 9:00 AM EST Office Visit Orthopedic Surgery [facility] [address] [place] [phone] Eloisa Chaudhari PA Primary osteoarthritis of both knees (Primary Dx) 11/25/2024 9:00 AM EST Consult Orthopedic Surgery [facility] [address] [facility] [address] [place] [phone] Cr Bolton DPM Controlled type 2 diabetes with neuropathy (CMS/HCC) (Primary Dx); Arthritis of both feet; PVD (peripheral vascular disease) (CMS/HCC); Xerosis cutis; Tinea pedis of both feet; Dermatophytosis, nail from Last 3 Months Surgical History Surgery Date Site/Laterality Comments OTHER SURGICAL HISTORY PROCEDURE: DENIES PREVIOUS SURGERY OTHER SURGICAL HISTORY PROCEDURE: MS LIG/TRNSXJ FLP TUBE ABDL/VAG APPR UNI/BI Medical [...] AM EDT Office Visit Orthopedic [facility] - [place] [address] [facility] [address] [place] [phone] Cr Bolton DPM 175 [facility] [place] [address] [place] [phone] Health Maintenance Due Date Last Done Comments [...] MAINTENANCE Final Result * Colonoscopy (09/12/2018) Pathologist [facility] Colonoscopy no interpretation , abstracted Anatomical Region Laterality Modality Other [facility] Provider HEALTH MAINTENANCE Final Result * (ABNORMAL) Hemoglobin A1c (07/12/2018) Pathologist [facility] Hemoglobin A1C 6.5(A) 4.0 - 6.0 % Blood Venous blood specimen / Unknown Historical Provider LAB BLOOD ORDERABLES Meka l Result from Last 3 Months or Most Recently Relevant to Health Maintenance Insurance MEDICARE Member Subscriber Plan / Payer (Ef fective 2024-Present) Name:Adrianne Landeros Relation to Subscriber:Self Name:Adrianne Landeros Payer ID:[id number] Group ID:[id number] Type:Not on file Address: [place] [address] [address] [place] [phone] Advance Directives Documents on File Type Date Recorded Patient University Controller Expl anation Health Care Decision (hx) 04/22/2018 [...] (hx) 04/22/2018 [employer] DIRECTIVE Care Teams Insurance Advisor Relationship Specialty Start Date End Date Keely Wilburn MD [address] [place] [phone] PCP - General 03/01/22
--- OUTSIDE RECORDS SUMMARY | 2025-01-02 07:15 | XMS_ITS ---
Author Organization [facility] Address [address] [place] [address] Care Team Providers Care Outsole Caser Name Role Phone Cosmo VAZQUEZ, Keely Primary Care Provider Unavail able Rod Arthur Unavailable [phone] Mathew Boss Unavailable Unavailable REASON FOR VISIT hospitalized Encounters Encounter Location Date Provider Diagnosis [facility] [address] [place] [address] 09/10/2023 Rod Arthur PLAN OF TREATMENT No Information
--- OUTSIDE RECORDS SUMMARY | 2025-01-02 07:16 | XMS_ITS | Encounter Summary ---
Author Organization [employer] Address 75 [facility] 7t [place] [address] Care Team Providers Care Restaurant Hostess Name Role Phone Keely Wilburn MD Primary Care Provider + Reason for Visit * Reason Comments Med Refill Encounter Details Date Type Department Care Team (Late st Contact Info) Description 08/18/2024 Refill [facility] 230 [place], [place] [phone] Keely Wilburn MD 230 [place], [place] [phone] Benign paroxysmal positional vertigo, unspecified laterality; Type 2 diabetes mellitus with other specified complication, unspecified whether joint terminal attack controller insulin use ([facility]) Social History Tobacco Use Types Packs/Day [...] 01/15/2025 10:30 AM EST Office Visit [facility] [address] [place] [phone] Keely Wilburn MD [address] [place] [phone] documented as of this encounter Visit Diagnoses Diagnosis Benign paroxysmal positional vertigo, unspecified laterality Type 2 diabetes mellitus with other specified complication, unspecified whether joint terminal attack controller insulin use ([facility]) documented in this encounter Care Teams Restaurant Hostess Relationship Specialty Start Date End Date Keely Wilburn MD [address] [place] [phone] PCP - General Family Medicine 10/27/19 [employer] 08/06/24 documented as of this encounter
--- OUTSIDE RECORDS SUMMARY | 2025-01-02 07:16 | XMS_ITS | Encounter Summary ---
Author Organization [employer] Address 75 [facility] 7t [place] [address] Care Team Providers Care Patrol Officer Name Role Phone Keely Wilburn MD Primary Care Provider + Reason for Visit * Reason Comments Med Refill Encounter Details Date Type Department Care Team (Late st Contact Info) Description 08/13/2024 Refill [facility] 230 [place], [place] [phone] Keely Wilburn MD 230 [place], [place] [phone] Benign paroxysmal positional vertigo, unspecified laterality; Type 2 diabetes mellitus with other specified complication, unspecified whether watermelon inspector insulin use ([facility]) Social History Tobacco Use Types [...] AM EST Office Visit [facility] [address] [place] [address] Keely Wilburn MD [address] [place] [address] documented as of this encounter Visit Diagnoses Diagnosis Benign paroxysmal positional vertigo, unspecified laterality Type 2 diabetes mellitus with other specified complication, unspecified whether watermelon inspector insulin use ([facility]) documented in this encounter Care Teams Patrol Officer Relationship Specialty Start Date End Date Keely Wilburn MD [address] [place] [phone] PCP - General Family Medicine 10/27/19 [employer] 08/06/24 documented as of this encounter
[2025-01-02 07:37] VITALS: BMI 37.8
--- NOTE | 2025-01-02 07:37 | MHC.OFFVIS ---
Vital Signs 01/02/25 07:37 Height 4 ft 11 in Weight 187 lb BMI 37.8 Intake Visit Reasons: Right leg Venaseal Accompanied by: Self / Same As Patient Allergies penicillin G [PENICILLIN G] Allergy (Mild, Verified 01/02/25 07:37) PRURITIS amoxicillin Allergy (Unknown, Verified 01/02/25 07:37) rash, itching aspirin Adverse Reaction (Verified 01/02/25 07:37) Hives PFSH Medical History On colchicine therapy Calcium pyrophosphate deposition disease (CPPD) Elevated uric acid in blood Right elbow pain Knee pain, bilateral Pain and swelling of right wrist Tenosynovitis of left wrist Tubular adenoma of colon Benign paroxysmal positional vertigo Vascular insufficiency Urinary incontinence Rheumatoid factor positive Pure hypercholesterolemia 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 Pneumonia due to COVID-19 virus Postmenopausal bleeding Osteopenia Obesity Microalbuminuria Medial epicondylitis Lateral epicondylitis of right elbow Injury of face Edema, lower extremity DJD of shoulder Chronic right shoulder pain Cellulitis, toe Arthritis of knee Abnormal gait Asthma Anemia Stroke Cataract of both eyes CKD (chronic kidney disease) Vitamin D deficiency HLD (hyperlipidemia) HTN (hypertension) T2DM (type 2 diabetes mellitus) Diabetes Surgical History H/O: hysterectomy Hx of colonoscopy History of temporal artery biopsy Hx of elbow surgery History of right shoulder fracture Family History Father No problems noted. Mother No problems noted. Daughter Arthritis Daughter Arthritis Daughter Arthritis Social History Household Members: Children Housing: Apartment Are you a primary manager critical care unit to a significant other at home: No Do you presently have visiting nurse or other home services: Yes Alcohol intake: never Patient Tobacco Use Status: Never used Tobacco service: No Current occupational status: disabled Physical Exam Vital Signs: BMI result Body Mass Index 37.8 Office Procedures Vascular Office Procedure Details Details: Diagnosis: Right Leg varicose veins with inflammation Procedure: Endovenous Ablation of the right Great Saphenous Vein with VenaSeal Closure System Anesthesia: Local infiltration 5 cc, Mechanical And Auto Body Car Checker: AMERICA Lee Estimated Blood Loss: min Specimen: none Duplex ultrasound was used to map out the insufficient saphenous vein, and access was determined and marked on the overlying skin. The depth and diameter of the vein(s) to be treated was documented. The patient was placed supine on the procedure table and the leg was prepped and draped using sterile technique. Ultasound guidance was again used to localize the access site. 1% lidocaine was injected as a local anesthetic in the subcutaneous tissues at the target location in the GSV in the lower leg. Using ultrasound guidance, access was gained at this location with the 19 gauge thin walled access needle and followed by introduction of a short guidewire, location confirmed with ultrasound. A small, 3 mm incision was made at the access site to allow for introduction and placement of the 7 Fr x7cm introducer/dilator. The dilator and guidewire were removed. The 0.035 guidewire from the VenaSeal kit was then introduced and positioned at the saphenofemoral junction using ultrasound guidance. The 80 cm 7 Fr introducer sheath/dilator was positioned 5cm from the saphenofemoral junction. The guidewire and dilator were removed, and the remaining sheath was flushed with sterile saline, with the syringe remaining in place prior to the next steps. The cyanoacrylate adhesive was precisely primed into the 5 F delivery catheter and this catheter/syringe combination was attached within the dispenser gun. This assembly was introduced through the 7F sheath and positioned 5 cm caudal of the saphenofemoral junction under ultrasound guidance. The steps from the IFU were followed for dispensing amounts, locations and compression times, 2 aliquots proximally with 3 minutes of compression, and 1 aliquot every 3 cm distally with 30 sec of compression along the course of the vessel. Following the last injection and compression sequence, the catheter and introducer sheath were pulled out from the access site. Hemostasis was achieved with manual compression and an adhesive bandage was applied to the incision. Ultrasound confirmed complete coaptation and closure of the treated segments of the GSV, and the absence of any DVT at the saphenofemoral junction. Treatment time was approximately 2 minutes and the vein length treated was 7 cm. The drapes were removed and the patient cleaned and prepared for discharge. Post op ultrasound check is scheduled for 48-72 hours and the patient was given written post-op instructions. 29950 - Endoven Ther Chem Adhes 1st All charges added?: Procedure code (CPT) selection complete Assessment & Plan Assessment & Plan (1) Varicose veins of right lower extremity with inflammation: Comment: 12/30/2021 - right great saphenous vein radiofrequency ablation 01/02/2025 - right great saphenous vein Cyanoacralate ablation Code(s): I83.11 - Varicose veins of right lower extremity with inflammation Category: Medical Plan: See op note Coding Level of Care Code Procedure Only Diagnoses Varicose veins of right lower extremity with inflammation I83.11 CPT Codes Details - Vascular 3: 08093 - Endoven Ther Chem Adhes 1st ([id number])
== END 2025-01-02 09:37 | disposition home or self-care (01) ==
PROVIDERS: PCP Internal Medicine; Visit Provider Surgery Vascular Surgery
DX: I83.11 Varicose veins of right lower extremity with inflammation (principal)
CPT/HCPCS: 36482

== ENCOUNTER → 2025-01-02 07:11 | Outpatient (BNVA) | payer OTHER, SELFPAY | PROVIDERS: PCP Internal Medicine; Visit Provider Surgery Vascular Surgery | DX: I83.11 Varicose veins of right lower extremity with inflammation (principal) | CPT/HCPCS: 36482; J2003 ==

== ENCOUNTER 2025-01-15 08:55 | Outpatient (AMB) | payer OTHER, SELFPAY ==
--- NOTE | 2025-01-15 09:01 | MHC.OFFVIS ---
Intake Visit Reasons: 2 week follow up s/p R leg Venaseal 01/02/25 Intake Note: Patient presents for follow up right venaseal. No complaints. Accompanied by: APPLIQUER Allergies penicillin G [PENICILLIN G] Allergy (Mild, Verified 01/15/25 09:02) PRURITIS amoxicillin Allergy (Unknown, Verified 01/15/25 09:02) rash, itching aspirin Adverse Reaction (Verified 01/15/25 09:02) Hives HPI HPI 2 week follow up s/p R leg Venaseal 01/02/25: Details: The patient is a 74-year-old female presenting for post-procedural follow-up. She has undergone a procedure on January 02, 2025. Since the procedure, she reports mild pre-tibial discomfort, but overall her pain and discomfort have significantly lessened. The focus of this visit is to monitor her recovery and assess the improvement of her symptoms after the procedure. 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 Pneumonia due to COVID-19 virus Postmenopausal bleeding Osteopenia Obesity Microalbuminuria Medial epicondylitis Lateral epicondylitis of right elbow Injury of face Edema, lower extremity DJD of shoulder Chronic right shoulder pain Cellulitis, toe Arthritis of knee Abnormal gait Asthma Anemia Stroke Cataract of both eyes CKD (chronic kidney disease) Vitamin D deficiency HLD (hyperlipidemia) HTN (hypertension) T2DM (type 2 diabetes mellitus) Diabetes Surgical History H/O: hysterectomy Hx of colonoscopy History of temporal artery biopsy Hx of elbow surgery History of right shoulder fracture Family History Father No problems noted. Mother No problems noted. Daughter Arthritis Daughter Arthritis Daughter Arthritis Social History Household Members: Children Housing: Apartment Are you a primary doggy daycare activities director to a significant other at home: No Do you presently have visiting nurse or other home services: Yes Alcohol intake: never Patient Tobacco Use Status: Never used Tobacco service: No Current occupational status: disabled Review of Systems Const All systems reviewed & are unremarkable except as noted in HPI and below Reports no additional complaints ENT Reports Normal hearing present Card Denies chest pain, Denies chest pain at rest, Denies chest pain with activity and Denies pedal edema Resp Denies cough GI Denies abdominal pain Musc Denies abnormal gait, Denies muscle cramps and Denies radiating pain into limb Skin/Breast Denies skin ulcer and Denies wounds Neuro Reports Normal hearing present and Denies abnormal gait Psych Reports no additional complaints Physical Exam Const General: cooperative, healthy appearing and comfortable Orientation/consciousness: oriented to person, oriented to place and oriented to time HEENT Head: Yes normal to inspection Neck Neck: Yes normal visual inspection Carotids: no bruits Chest Chest palpation & inspection: normal inspection of the chest Resp Effort & Inspection: normal respiratory effort and able to speak in complete sentences Auscultation: clear to auscultation bilaterally, no crackles, no rales, no rhonchi and no wheezes Cardio Rate: regular rate Rhythm: regular rhythm Heart sounds: S1 normal heart sound present and S2 normal heart sound present Bruits: no carotid bruits Peripheral pulses: Peripheral pulses 2+ throughout GI Inspection: Yes normal to inspection Skin Wounds: no wounds Hair: normal Neuro General: oriented to person, oriented to place and oriented to time Cranial nerves: Yes CN's II-XII intact bilaterally and Yes Normal hearing present Cognition (Neuro): normal cognition Motor exam (neuro): 5/5 motor strength present throughout Extrem Other: venous exam: No significant superficial varicosities or spider telangiectasias, minimal edema General: No clubbing, No cyanosis and No edema Psych Appearance: grossly normal Mental Status: mental status grossly normal Speech and movement: Normal speech and movement present Assessment & Plan Assessment & Plan (1) Varicose veins of right lower extremity with inflammation: Comment: 12/30/2021 - right great saphenous vein radiofrequency ablation 01/02/2025 - right great saphenous vein Cyanoacralate ablation Code(s): I83.11 - Varicose veins of right lower extremity with inflammation Category: Medical Plan: The patient has done extremely well with all venous treatments. Patient's may often experience postprocedure phlebitic episodes and I have discussed with the patient use of warm compresses and NSAIDS if tolerated for pain discomfort. In addition, I have discussed continued conservative measures including use of compression, leg elevation, and exercise. The patient was also given an information sheet regarding appropriate use of compression stockings and future purchases. Thank you for allowing us to care for your patient with venous disease. (2) Varicose veins of left lower extremity with inflammation: Comment: 02/17/2022 - left great saphenous vein radiofrequency ablation 03/17/2022 - left leg microphlebectomy Code(s): I83.12 - Varicose veins of left lower extremity with inflammation Category: Medical Plan: See above Coding Level of Care Code Est Pt Level 3 (94182) Diagnoses Varicose veins of right lower extremity with inflammation I83.11 Varicose veins of left lower extremity with inflammation I83.12
--- OUTSIDE RECORDS SUMMARY | 2025-01-15 09:44 | XMS_ITS | Encounter Summary ---
Author Organization [facility] Address [address] [facility] [address] [place] [address] Care Team Providers Care Equal Opportunity Representative Name Role Phone Keely Wilburn MD Primary Care Provider + Encounter Details Date Type Department Care Team (Late Contact Info) Description 01/17/2023 Abstract [facility] [address] [place] [address] Keely Wilburn MD [address] [place], [place] [phone] Social History Tobacco Use Types Packs/Day Years [...] Description 01/15/2025 10:30 AM EST Office Visit [facility] [address] [place], [place] [phone] Keely Wilburn MD [address] [place] [address] documented as of this encounter Visit Diagnoses Not on filedocumented in this encounter Care Teams Equal Opportunity Representative Relationship Specialty Start Date End Date Keely Wilburn MD [address] [place] [address] PCP - General Family Medicine 10/27/19 [place] 08/06/24 documented as of this encounter
--- OUTSIDE RECORDS SUMMARY | 2025-01-15 09:44 | XMS_ITS | Encounter Summary ---
Author Organization [facility] Address [address] [place] [address] Phone Care Team Providers Care Blue Line Hanger Name Role Phone Keely Wilburn MD Primary Care Provider + [phone] Encounter Details Date Type Department Care Team (Late Contact Info) Description 09/02/2024 Documentation Only [facility] [address] [place] [address] Jaz Jane PA [address] [place] [phone] Social History Tobacco Use Types Packs/Day Years [...] Visit [facility] [address] [place] [address] Terrance Garcia MD [address] [facility] [place] [address] documented as of this encounter Visit Diagnoses Not on filedocumented in this encounter Care Teams Blue Line Hanger Relationship Specialty Start Date End Date Keely Wilburn MD [address] [place] [phone] PCP - General Internal Medicine 02/11/20 documented as of this encounter
--- OUTSIDE RECORDS SUMMARY | 2025-01-15 09:44 | XMS_ITS | Encounter Summary ---
Author Organization [facility] Address [address] [place] [address] Phone Care Team Providers Care Legislative Correspondent Name Role Phone Keely Wilburn MD Primary Care Provider + [phone] Encounter Details Date Type Department Care Team (Late Contact Info) Description 03/18/2024 Documentation Only [facility] [address] [place] [address] Juju Avila [address] [place] [phone] Social History Tobacco Use Types Packs/Day Years [...] [facility] [address] [place] [address] Terrance Garcia MD [address] [place] [address] [place] [address] documented as of this encounter Visit Diagnoses Not on filedocumented in this encounter Care Teams Legislative Correspondent Relationship Specialty Start Date End Date Keely Wilburn MD [address] [place] [phone] PCP - General Internal Medicine 02/11/20 documented as of this encounter
--- OUTSIDE RECORDS SUMMARY | 2025-01-15 09:44 | XMS_ITS | Encounter Summary ---
Author Organization [facility] Address [address] [place] [address] Phone Care Team Providers Care Project Developer Name Role Phone Keely Wilburn MD Primary Care Provider + [phone] Encounter Details Date Type Department Care Team (Late Contact Info) Description 03/18/2024 Documentation Only [facility] [address] [place] [place] [address] Juju Avila [address] [place] [phone] Social History Tobacco Use Types Packs/Day Years [...] Visit [facility] [address] [place] [address] Terrance Garcia MD [address] [place] [address] [place] [address] documented as of this encounter Visit Diagnoses Not on filedocumented in this encounter Care Teams Project Developer Relationship Specialty Start Date End Date Keely Wilburn MD [address] [place] [phone] PCP - General Internal Medicine 02/11/20 documented as of this encounter
--- OUTSIDE RECORDS SUMMARY | 2025-01-15 09:44 | XMS_ITS | Encounter Summary ---
Author Organization [facility] Address [address] [place] [address] Phone Care Team Providers Care Piece Meat Trimmer Name Role Phone Keely Wilburn MD Primary Care Provider + [phone] Encounter Details Date Type Department Care Team (Late Contact Info) Description 03/18/2024 Documentation Only [facility] [address] [place] [address] Juju Avila [address] [place] [phone] Social History Tobacco Use Types Packs/Day Years [...] [facility] [address] [place] [address] Terrance Garcia MD [address] [place] [address] [place] [address] documented as of this encounter Visit Diagnoses Not on filedocumented in this encounter Care Teams Piece Meat Trimmer Relationship Specialty Start Date End Date Keely Wilburn MD [address] [place] [address] PCP - General Internal Medicine 02/11/20 documented as of this encounter
--- OUTSIDE RECORDS SUMMARY | 2025-01-15 09:44 | XMS_ITS | Encounter Summary ---
Author Organization [facility] Address [address] [place] [address] Phone Care Team Providers Care Buggy Driver Name Role Phone Keely Wilburn MD Primary Care Provider + [phone] Encounter Details Date Type Department Care Team (Late Contact Info) Description 03/18/2024 Documentation Only [facility] [address] [place] [address] Juju Avila [address] [place] [phone] Social History Tobacco Use Types Packs/Day Years [...] [facility] [address] [place] [address] Terrance Garcia MD [address] [place] [address] [place] [address] documented as of this encounter Visit Diagnoses Not on filedocumented in this encounter Care Teams Buggy Driver Relationship Specialty Start Date End Date Keely Wilburn MD [address] [place] [phone] PCP - General Internal Medicine 02/11/20 documented as of this encounter
--- OUTSIDE RECORDS SUMMARY | 2025-01-15 09:44 | XMS_ITS | Clinical Summary ---
Author Organization [facility], Address [address] [place] [address] [place] [address] Phone Care Team Providers Care Mastic Worker Name Role Phone Keely Wilburn MD Primary Care Provider + [phone] Allergies Active Allergy Reactions Criticality Noted Date [...] NEEDED 0 Active Lancets (ONETOUCH DELICA PLUS [id number]) misc USE SEG N LO INDICADO PAN [...] with diabetic nephropat hy 12/19/2019 Hypertension 12/19/2019 Immunizations Name Administration Dates Next Due Hepatitis [...] Visit [facility], [address] [facility] [place] [address] Terrance Garcia MD [address] [facility] [place] [address] Health Maintenance Due Date Last Done [...] PM EST) Hemoglobin A1C 6.8(H) (4.0-5.6) % [facility] Comment: MONITORING: In known diabetic patients, hemoglobin A1c targets should be discussed with health care provider. DIAGNOSTIC USE: ??The [place] Diabetes Association (ADA) and the World Health [...] Supplement 1 Testing performed or reported by [facility] Reference [employer], a Service of [facility], [address] [place] [address] Luis Andino MD, Merchandising Execution Manager CLIA# [id number] Blood (Blood, Venous) 09/28/2022 2:01 PM EST 09/28/2022 2:03 PM EST us Terrance Garcia MD LAB BLOOD ORDERABLES Final Re sult [facility] from Last 3 Months or Most Recently Relevant to Health [place] [address] [place] [address] [facility] SNP ([id number]) [place] [id number] Care Teams Mastic Worker Relationship Specialty Start Date End Date Keely Wilburn MD [address] [place] [phone] PCP - General Internal Medicine 02/11/20
--- OUTSIDE RECORDS SUMMARY | 2025-01-15 09:44 | XMS_ITS | Encounter Summary ---
Author Organization [facility] Address [address] [place] [address] Phone Care Team Providers Care National Sales Executive Name Role Phone Keely Wilburn MD Primary Care Provider + [phone] Encounter Details Date Type Department Care Team (Late Contact Info) Description 03/18/2024 Documentation Only [facility] [address] [place] [address] Juju Avila [address] [place] [phone] Social History Tobacco Use Types Packs/Day Years [...] [facility] [address] [place] [address] Terrance Garcia MD [address] [place] [address] [place] [address] documented as of this encounter Visit Diagnoses Not on filedocumented in this encounter Care Teams National Sales Executive Relationship Specialty Start Date End Date Keely Wilburn MD [address] [place] [phone] PCP - General Internal Medicine 02/11/20 documented as of this encounter
--- OUTSIDE RECORDS SUMMARY | 2025-01-15 09:44 | XMS_ITS | Data Portability ---
Author Organization [employer] Address [address] [place] [address] Care Team Providers Care Labor Crew Supervisor Name Role Phone HIM [facility] OTHER [facility] Referring Provider Assessment Encounter Date Assessment Date Assessment LastModified by Organization Details LastModified Time 07/23/2024 07/23/2024 I provided real -time medical direction via phone for this encounter and was available for additional phone-based assistance as needed. I have reviewed and agree with the Assessment and Plan as documented by the Shuttle Preparation Supervisor. Patient given the opportunity to ask questions. Our service contacted for an assessment of: Edema and discoloration of the leg As per above, patient with chronic venous stasis and wanted an evaluation for possible infection. Please see uploaded pictures. Patient with no increase in pain. Per plate maker on the scene, vital signs are stable the patient is afebrile. Per plate maker on the scene there was no increase [...] Assessment and Plan as documented by the Shuttle Preparation Supervisor. We discussed the diagnostic uncertainty of home visits and the risk associated with this. The patient given the opportunity to ask questions. [email or web address] Not available 12/03/2024 02:39:54 Plan of Treatment Reminders Order Date Submit Date Provider Last Modified By Organization Details Last Modified Time Details Appointments None recorded. Lab BMP, serum or plasma 2024 025 [email or web address] [facility], [address] [place] [address], [phone], 5 02:43:56 rapid flu (A+B) 2024 025 [email or web address] 0 [facility] - [facility], [address] [place] [address], [phone], 5 02:43:56 rapid SARS CoV 2 Ag, QL IA, respiratory specimen 2024 025 [email or web address] [facility] - [facility], [address] [place] [address], [address], 5 02:43:56 Referral None recorded. Procedures None recorded. Surgeries None recorded. Imaging electrocard iogram 2024 025 [email or web address] 0 [facility] [address] [place] [address], [phone], 5 02:43:56 Medication Orders lactated Ringers intravenous solution 2024 025 [email or web address] [facility] #[id number], [address] [place], [address], 5 02:43:56 ondansetron HCl (PF) 4 mg/2 mL injection solution 2024 025 [email or web address] [facility] #[id number], [address] [place], [address], 5 02:43:56 famotidine (PF) 20 mg/2 mL intravenous solution 2024 025 [email or web address] 0 [facility] #[id number], [address] [place], [address], 02:43:56 Patient TargetsNo targets recorded. Patient InstructionsNo instructions recorded. Reason for Referral None Reported. Results Created Date Observation Date Name Description Value Unit Range Abnormal Flag Note LastModifiedBy Organization Detail LastModifiedTime 12/02/1912/02/2024 rapid SARS CoV 2 Ag, QL IA, respi rator y speci men rapid SARS CoV 2 Ag, QL IA, respiratory specimen negati ve Not Available [facility] [address] [place] [address], [phone], 12/02/2024 12:32:06 12/02/19 25 12/02/2024 rapid flu (A+B) Flu negati ve Not Available [facility] [address] [place] [address], [phone], 12/02/2024 12:32:06 12/03/19 25 12/03/2024 elect oh castrogr am No observ ation record ed. [email or web address] [address], [address], 12/03/2024 02:41:54 Result Notes None recorded. Procedures Surgical History None recorded. Imaging Results Imaging Date Name Status LastModified by Organization Details LastModified Time 12/03/2024 electrocardiogram completed [address], [address], 12/03/2024 02:41:54 Procedure Notes None recorded. Medical [...] Not available Not available Not available 07/23/2024 [id number] SNOMED Not Available [facility] - production [...] Address Organization Details Last Updated DateTime 4 91708.6 g 18 /min 60 /min 157.48 cm 98.4 [degF] 97 % 97 % 173 mm[Hg] 82 mm[Hg] Not Available [employer] [employer] 4 17:39:44 Date Recorded Body height Body temperature Oxygen saturation Oxygen saturation in Arterial blood by Pulse oximetry Body weight Respiratory rate Heart rate Systolic blood pressure Diastolic blood pressure Provider Name and Address Organization Details Last Updated DateTime 5 162.56 cm 98.8 [degF] 97 % 97 % 19226.5 6 g 16 /min 84 /min 130 mm[Hg] 71 mm[Hg] Not Available [employer] 5 10:44:43 Social History None recorded. Functional Status None recorded. Mental Status None recorded. Family History Nothing Reported. Medical History No medical history recorded. Gynecological HistoryNo gynecological history recorded. Obstetrics History GPAL:G 0 P 0 0 0 0 Past Encounters Encounter ID Performer Location Encounter Start Date Encounter Closed Date Diagnosis/Indication Diagnosis SNOMED-CT Code Diagnosis ICD10 Code Diagnosis Note [id number] Paz Gaona MD [facility] [address] [place] [phone] 07/23/2024 17:39:33 07/23/2024 22:02:00 Venous stasis edema of bilateral lower limbs 7065229400 [id number] I87.2 [id number] Ely Anne MD [facility] [address] [place] [phone] 12/02/2024 10:44:41 12/03/2024 18:59:31 Chest pain 01640596 R07.9 Patient initially declined the ER, feeling [...] She ultimately agreed, sent by EMS to [facility] Mia lund, report called to the Xpect line in the ER Acute gastroenteritis 69 077448 K52.9 Color improved feels better and dry [...] Amezquita Member ID Guarantor Name 07/23/2024 1 [facility] - DOS ON OR AFTER 2023 - DUAL ELIGIBLE - LONGTERM OPTIONS AND ONE CARE (MEDICARE REPLACEMENT/ADV ANTAGE - HMO) [facility] [id number] [facility] 12/02/2024 1 [facility] - DOS ON OR AFTER 2023 - DUAL ELIGIBLE - LONGTERM OPTIONS AND ONE CARE (MEDICARE REPLACEMENT/ADV ANTAGE - HMO) [facility] [id number] [facility] Notes Date Note Type Note Provider Name and Address Organization Details Recorded Time 07/23/2024 text/html HPI: PMHx:Varicose veins of lower extremities.Call returned to [facility] to triage below. Spoke with [...] Diabetes Allergies: Aspirin, Penicillin Comments: Reviewed HPI Shuttle Preparation Supervisor Organization Information for Norman Stern Business Legal Name: [facility] Address: [address] [place] [address], [place] [address], Energy Risk Management Analyst: Donnie LAIRD No.: [id number] Shuttle Preparation Supervisor POC Test Results from Norman Stern Blood Glucose Measurement (16:50:25) Blood Glucose: 179 mg/dL .................... .................... .................... .................... .................... .................... .................... . Shuttle Preparation Supervisor Note From Norman Stern: Patient seated on [...] noted. good ROM, good CSM, negative calf tenderness.[facility] advises patient to keep appointment next week. Advises patient to consider using compression stockings, dinh wraps and follow up with PCP. [facility] advises patient to use Tylenol as directed for pain. Patient says she has same on hand, red flags patient education discussed. Shuttle Preparation Supervisor Allergies: Aspirin, Penicillin .................... .................... .................... .................... .................... .................... .................... . Disposition: Fulfilled Paz Gaona MD [address] [place] [address],[address], [place], [address], [employer] 07/23/2024 19:44:57 12/02/2024 text/html [facility] Nurse Triage Notes (Perlita Segura - [...] s/s and seek emergency treatment if needed. Shuttle Preparation Supervisor Organization Information for Mahin Reed Business Legal Name: [employer] Address: [address] [place] [address] [place] [address], Energy Risk Management Analyst: Jeffrey LAIRD No.: [id number] Shuttle Preparation Supervisor POC Test Results from Mahin Reed - [...] .................... .................... .................... .................... .................... .................... . Shuttle Preparation Supervisor Note From Mahin Reed: [place] makes pt [...] to her in the bed. Pt is Arabic-speaking only, so interpretation services are obtained via [...] on scene to finish providing translation services. [facility] obtains vital signs and pt [...] for bmp in anticipation of clinical course. [facility] contacts [facility] and [facility] orders 1 L LR, 4mg IV zofran, and 20mg IV famotadine, w/ repeat dose of zofran if needed. [facility] also raises concerns regarding pt's EKG. A [...] improvement in the nausea and chest pain. [facility] contacts [facility] to discuss pt transport to the ED for a cardiac workup. [facility] discusses this w/ family and pt and pt is amendable to transport by ambulance to [facility]. Pt is transported via [facility] and [facility] calls in pre-arrival report. [facility] is clear. Report completed by JAIR Reed [id number]. [facility] Lab Orders: BMP, serum or plasma: Performed rapid flu (A+B): Performed rapid SARS CoV 2 Ag, QL IA, respiratory specimen: Performed .................... .................... .................... .................... .................... .................... .................... . [facility] Consulted: Ely Anne .................... .................... .................... .................... .................... .................... .................... . Disposition: Fulfilled Ely Anne MD [address] [facility],[address], [place], [address], [employer] 12/03/2024 02:46:08 OBGyn Episode No OBEpisode recorded.
--- OUTSIDE RECORDS SUMMARY | 2025-01-15 09:44 | XMS_ITS | Encounter Summary ---
Author Organization [facility] Address [address] [place] [address] Phone Care Team Providers Care Level Vial Curvature Gauger Name Role Phone Keely Wilburn MD Primary Care Provider + [phone] Encounter Details Date Type Department Care Team (Late Contact Info) Description 03/18/2024 Documentation Only [facility] [address] [place] [address] Juju Avila [address] [place] [phone] Social History Tobacco Use Types Packs/Day Years [...] Visit [facility] [address] [place] [place] [address] Terrance Garcia MD [address] [place] [address] [place] [address] documented as of this encounter Visit Diagnoses Not on filedocumented in this encounter Care Teams Level Vial Curvature Gauger Relationship Specialty Start Date End Date Keely Wilburn MD [address] [place] [address] PCP - General Internal Medicine 02/11/20 documented as of this encounter
--- OUTSIDE RECORDS SUMMARY | 2025-01-15 09:44 | XMS_ITS | Encounter Summary ---
Author Organization [facility] Address [address] [place] [address] Phone Care Team Providers Care Program And Research Coordinator Name Role Phone Keely Wilburn MD Primary Care Provider + [phone] Encounter Details Date Type Department Care Team (Late Contact Info) Description 09/29/2024 Documentation Only [facility] [address] [place] [address] Juju Avila [address] [place] [phone] Social History Tobacco Use Types Packs/Day Years [...] Visit [facility] [address] [place] [address] Terrance Garcia MD [address] [place] [address] [place] [address] documented as of this encounter Visit Diagnoses Not on filedocumented in this encounter Care Teams Program And Research Coordinator Relationship Specialty Start Date End Date Keely Wilburn MD [address] [place] [address] PCP - General Internal Medicine 02/11/20 documented as of this encounter
--- OUTSIDE RECORDS SUMMARY | 2025-01-15 09:44 | XMS_ITS | Encounter Summary ---
Author Organization [facility] Address [address] [place] [address] Phone Care Team Providers Care Marine Meteorologist Name Role Phone Keely Wilburn MD Primary Care Provider + [phone] Encounter Details Date Type Department Care Team (Late Contact Info) Description 03/18/2024 Documentation Only [facility] [address] [place] [address] Juju Avila [address] [place] [phone] Social History Tobacco Use Types Packs/Day Years [...] Visit [facility] [address] [place] [address] Terrance Garcia MD [address] [place] [address] [place] [address] documented as of this encounter Visit Diagnoses Not on filedocumented in this encounter Care Teams Marine Meteorologist Relationship Specialty Start Date End Date Keely Wilburn MD [address] [place] [address] PCP - General Internal Medicine 02/11/20 documented as of this encounter
--- OUTSIDE RECORDS SUMMARY | 2025-01-15 09:44 | XMS_ITS | Encounter Summary ---
Author Organization [facility] Address [address] [place] [address] Phone Care Team Providers Care Yard Switch Operator Name Role Phone Keely Wilburn MD Primary Care Provider + [phone] Encounter Details Date Type Department Care Team (Late st Contact Info) Description 10/11/2021 Documentation Only [facility] [address] [place] [address] Terrance Garcia MD [address] [place] [address] [place] [address] Social History Tobacco Use Types [...] Visit [facility] [address] [place] [address] Terrance Garcia MD [address] [facility] [place] [address] documented as of this encounter Visit Diagnoses Not on filedocumented in this encounter Care Teams Yard Switch Operator Relationship Specialty Start Date End Date Keely Wilburn MD [address] [place] [address] PCP - General Internal Medicine 02/11/20 documented as of this encounter
--- OUTSIDE RECORDS SUMMARY | 2025-01-15 09:44 | XMS_ITS | Encounter Summary ---
Author Organization [employer] Address [address] [facility] [address] [place] [address] Care Team Providers Care Corporate Planner Name Role Phone Keely Wilburn MD Primary Care Provider + Reason for Visit * Reason Onset Date Comments Email paperwork 12/26/2022 Encounter Details Date Type Department Care Team ([facility] st Contact Info) Description 12/26/2022 Telephone [facility] [address] [place], [place] [phone] Keely Wilburn MD [address] [place] [address] Email paperwork Social History Tobacco Use Types [...] 3:13 PM EST Tc from Cathryn with [facility] stating that she spoke with a nurse regarding some paperwork that nurse was having trouble faxing over and Cathryn gave over her but she has not receive anything back, the email is [email or web address] If any information needed please contact Cathryn at [phone] documented in this encounter Plan of Treatment Upcoming Encounters Date Type Department Care Team (Late st Contact Info) Description 01/15/2025 10:30 AM EST Office Visit [facility] [address] [place] [address] Keely Wilburn MD [address] [place] [address] documented as of this encounter Visit Diagnoses Not on filedocumented in this encounter Care Teams Corporate Planner Relationship Specialty Start Date End Date Keely Wilburn MD [address] [place] [address] PCP - General Family Medicine 10/27/19 [employer] 08/06/24 documented as of this encounter
--- OUTSIDE RECORDS SUMMARY | 2025-01-15 09:44 | XMS_ITS ---
Author Organization [facility] Address [address] [place] [address] Care Team Providers Care Rn Cardiovascular Name Role Phone Cosmo VAZQUEZ, Keely Primary Care Provider Unavail able Rod Arthur Unavailable [phone] GeraMathew Unavailable Unavailable REASON FOR VISIT screening colon Encounters Encounter Location Date Provider Diagnosis [facility] [place] Outpatient [address] [place] [phone] 02/06/2024 Rod Arthur Encounter for scre ening [...] Of Treatment No Information Progress Notes * EDILBERTO SHEARERDOB:1950 (74 yo F)Acc No.[id number]:02/06/2024 COLON WITH MAC Patient:?EDILBERTO SHEARER Provider:?Rod Arthur MD :1950???Age:73 Y???Sex:Female D ate:02/06/2024 Address:[address] [place], [place] [phone] Pcp:Keely Wilburn MD Subjective: * Chief Complaints: * ???1. Screening colon. * Medical History:? Objective: * Vitals:? Assessment: * Assessment: 1.?Encounter for screening c olonoscopy - Z12.11 (Primary)???2.?Colon polyps - K63.5???3.?Diverticulosis of large intestine without perforation or abscess without bleeding - K57.30???4.?Other hemorrhoids - K64.8??? Plan: * Treatment: * Procedure Codes:?00112 LESIO N REMOVAL COLONOSCOPY, Modifiers: PT , 0529F INTRVL 3+YRS PTS CLNSCP DOCD, Modifiers: 8P , 0528F RCMND FLW-UP 10 YRS DOCD, Modifiers: 1P * * The named appointment provid er may or may not be the originator of this progress note, and it is not deemed complete until electronically signed by the appointment provider. Sign off status: Pending * Provider:?Rod Arthur MD Date:? 024 Generated for Ashley becerra/Stewart/Maciitting on:?01/15/2025 09:44 AM EST
--- OUTSIDE RECORDS SUMMARY | 2025-01-15 09:44 | XMS_ITS | Encounter Summary ---
Author Organization [facility] Address [address] [place] [address] Phone Care Team Providers Care Mobility Developer Name Role Phone Keely Wilburn MD Primary Care Provider + [phone] Encounter Details Date Type Department Care Team (Late Contact Info) Description 08/05/2024 Documentation Only [facility] [address] [place] [address] Jaz Jane [place] [address] [place] [phone] Social History Tobacco Use Types Packs/Day Years [...] [facility] [address] [place] [address] Terrance Garcia MD [address] [facility] [place] [address] documented as of this encounter Visit Diagnoses Not on filedocumented in this encounter Care Teams Mobility Developer Relationship Specialty Start Date End Date Keely Wilburn MD [address] [place] [address] PCP - General Internal Medicine 02/11/20 documented as of this encounter
--- OUTSIDE RECORDS SUMMARY | 2025-01-15 09:44 | XMS_ITS | Encounter Summary ---
Author Organization [facility] Address [address] [place] [address] Phone Care Team Providers Care In Class Special Education Teacher Name Role Phone Keely Wilburn MD Primary Care Provider + [phone] Encounter Details Date Type Department Care Team (Late Contact Info) Description 03/18/2024 Documentation Only [facility] [address] [place] [address] Juju Avila [address] [place] [phone] Social History Tobacco Use Types Packs/Day Years [...] Visit [facility] [address] [place] [address] Terrance Garcia MD [address] [place] [address] [place] [address] documented as of this encounter Visit Diagnoses Not on filedocumented in this encounter Care Teams In Class Special Education Teacher Relationship Specialty Start Date End Date Keely Wilburn MD [address] [place] [address] PCP - General Internal Medicine 02/11/20 documented as of this encounter
--- OUTSIDE RECORDS SUMMARY | 2025-01-15 09:44 | XMS_ITS | Encounter Summary ---
Author Organization [facility] Address [address] [place] [address] Phone Care Team Providers Care Community Service Manager Name Role Phone Keely Wilburn MD Primary Care Provider + [phone] Encounter Details Date Type Department Care Team (Late Contact Info) Description 03/18/2024 Documentation Only [facility] [address] [place] [address] Juju Avila [address] [place] [phone] Social History Tobacco Use Types Packs/Day Years [...] Visit [facility] [address] [place] [address] Terrance Garcia MD [address] [place] [address] [place] [address] documented as of this encounter Visit Diagnoses Not on filedocumented in this encounter Care Teams Community Service Manager Relationship Specialty Start Date End Date Keely Wilburn MD [address] [place] [address] PCP - General Internal Medicine 02/11/20 documented as of this encounter
--- OUTSIDE RECORDS SUMMARY | 2025-01-15 09:44 | XMS_ITS ---
Author Organization [facility] Address [address] [place] [address] Care Team Providers Care Supervisor Mail Carriers Name Role Phone Cosmo VAZQUEZ, Keely Primary Care Provider Unavail able Rod Arthur Unavailable [phone] Gera, Zclyde Unavailable Unavailable REASON FOR VISIT screening Encounters Encounter Location Date Provider Diagnosis [facility] [address] [place], [place] [phone] 09/12/2023 Rod Arthur Plan Of Treatment No Information Progress Notes * EDILBERTO SHEARERDOB:1950 (74 yo F)Acc No.[id number]:09/12/2023 COLON WITH MAC Patient:?EDILBERTO SHEARER Provider:?Rod Arthur MD :1950???Age:73 Y???Sex:Female D ate:09/12/2023 Address:[address] [place], [place] [phone] Pcp:Keely Wilburn MD Subjective: * Chief Complaints: * ???1. Screening. * Medical History:? Objective: * Vitals:? Assessment: Plan: * Treatment: * * The named appointment provid er may or may not be the originator of this progress note, and it is not deemed complete until electronically signed by the appointment provider. Sign off status: Pending * Provider:?Rod Arthur MD Date:? 023 Generated for Ashley becerra/Stewart/Maciitting on:?01/15/2025 09:44 AM EST
--- OUTSIDE RECORDS SUMMARY | 2025-01-15 09:45 | XMS_ITS | Encounter Summary ---
Author Organization [facility] Address [address] [facility] 7t [place] [address] Care Team Providers Care Auditing Control Clerk Name Role Phone Keely Wilburn MD Primary Care Provider + Reason for Visit * Reason Onset Date Comments Error (VOID this visit) 12/23/2024 Encounter Details Date Type Department Care Team (Late st Contact Info) Description 12/23/2024 Telephone [facility] MEDICINE [address] [place], [place] [phone] Corina Link, RN [address] [place] [address] Error (VOID this visit) Social History Tobacco [...] Office Visit [facility] MEDICINE [address] [place] [phone] Keely Wilburn MD [address] [place] [phone] documented as of this encounter Visit Diagnoses Not on filedocumented in this encounter Care Teams Auditing Control Clerk Relationship Specialty Start Date End Date Keely Wilburn MD [address] [place] [phone] PCP - General Family Medicine 10/27/19 [place] 08/06/24 documented as of this encounter
--- OUTSIDE RECORDS SUMMARY | 2025-01-15 09:45 | XMS_ITS | Clinical Summary ---
Author Organization [address] [place] [address] Address 175 [place] [address] Phone Care Team Providers Care Learning Disabilities Resource Teacher Name Role Phone Keely Wilburn MD [...] 9:00 AM EST Office Visit Orthopedic Surgery [facility] 175 [facility] [address] [place] [phone] Eloisa Chaudhari PA Primary osteoarthritis of both knees (Primary Dx) 11/25/2024 9:00 AM EST Consult Orthopedic Surgery [facility] [address] [facility] 250 [place] [phone] Cr Bolton DPM Controlled type 2 diabetes with neuropathy (CMS/HCC) (Primary Dx); Arthritis of both feet; PVD (peripheral vascular disease) (CMS/HCC); Xerosis cutis; Tinea pedis of both feet; Dermatophytosis, nail from Last 3 Months Surgical History Surgery Date Site/Laterality Comments OTHER SURGICAL HISTORY PROCEDURE: DENIES PREVIOUS SURGERY OTHER SURGICAL HISTORY PROCEDURE: NC LIG/TRNSXJ FLP TUBE ABDL/VAG APPR UNI/BI Medical [...] AM EDT Office Visit Orthopedic Surgery - [place] [address] [facility] [address] [place] [phone] Cr Bolton DPM [address] [facility] [address] [place] [phone] Health Maintenance Due Date Last Done Comments [...] Result * Colonoscopy (09/12/2018) Pathologist [facility] Colonoscopy no interpretation , abstracted Anatomical Region Laterality Modality Other [facility] Provider HEALTH MAINTENANCE Final Result * (ABNORMAL) Hemoglobin A1c (07/12/2018) Pathologist [facility] Hemoglobin A1C 6.5(A) 4.0 - 6.0 % Blood Venous blood specimen / Unknown Historical Provider LAB BLOOD ORDERABLES Meka l Result from Last 3 Months or Most Recently Relevant to Health Maintenance Insurance MEDICARE Member Subscriber Plan / Payer (Ef fective 2024-Present) Name:Adrianne Landeros Relation to Subscriber:Self Name:Adrianne Landeros Payer ID:[id number] Group ID:[id number] Type:Not on file Address: [place] [address] [address] [phone] Advance Directives Documents on File Type Date Recorded Patient Process Improvement Manager Expl anation Health Care Decision (hx) 04/22/2018 [...] (hx) 04/22/2018 AD BECKWITH DIRECTIVE Care Teams Learning Disabilities Resource Teacher Relationship Specialty Start Date End Date Keely Wilburn MD [address] [place] [phone] PCP - General 03/01/22
--- OUTSIDE RECORDS SUMMARY | 2025-01-15 09:45 | XMS_ITS | Clinical Summary ---
Author Organization [facility] Address 75 [facility] 7t [place] [address] Care Team Providers Care Auto Service Instructor Name Role Phone Keely Wilburn MD Primary Care Provider + Allergies Active Allergy Reactions Criticality Noted Date Comments Aspirin Hives 11/16/2022 Penicillin G 04/11/2013 Other reaction(s): Rash Medications cyanocobalamin (Vitamin B-12) 100 MCG tablet Take 1 tablet by mouth daily. 1 Active glucose blood (OneTouch Ultra) test strip check by fingerstick route 2 times every day 7 Active sennosides (Senokot) 8.6 MG tablet take 1 tablet by oral route every day as needed for constipation 1 Active timolol (Timoptic) 0.5 % ophthalmic solution instill 1 drop by ophthalmic route 2 times every day into affected eye(s) Active gabapentin (Neurontin) 100 MG capsule Take 100 mg by mouth 3 times daily. Active rosuvastatin (Crestor) 20 MG tablet Take 20 mg by mouth in the morning. 2 Active Acetaminophen Extra Strength 500 MG tablet TAKE 1 TABLET BY MOUTH EVERY 12 HOURS NEEDED 60 tablet 1 3 Active Diclofenac Sodium 1 % gel APPLY 2 GRAMS TOPICALLY TO AFFECTED AREA 3 TIMES A DAY 100 g 1 3 Active lidocaine (Lidoderm) 5 % patchIndications :Other postherpetic nervous system involvement APPLY 1 PATCH IN THE MORNING REMOVE AND DISARD PATCH WITHIN 12 HOURS OR DIRECTED 30 patch 4 Active albuterol (ProAir HFA) 108 (90 Base) MCG/ACT inhalerIndicatio ns:Moderate persistent asthma, unspecified whether complicated INHALE 2 PUFFS BY MOUTH EVERY 4 TO 6 HOURS IF NEEDED 18 g 3 4 Active albuterol 1.25 MG/3ML nebulizer solutionIndicati ons:Viral upper respiratory tract infection INHALE 1 VIAL VIA NEBULIZER EVERY 6 HOURS IF NEEDED FOR WHEEZING 75 mL 3 4 Active docusate sodium (Colace) 100 MG capsuleIndicatio ns:Slow transit constipation TAKE ONE CAPSULE BY MOUTH TWICE A DAY NEEDED (VIAL) 60 capsule 11 4 Active calcium carbonate EX (Tums E-X) 750 MG chewable tablet Chew 1 tablet (750 mg) Once per day. 90 tablet 3 4 025 Active Lantus SoloStar 100 UNIT/ML penIndications:T ype 2 diabetes mellitus with other specified complication, unspecified whether retirement insulin use ([facility]) INJECT 18 UNITS UNDER THE SKIN ONCE DAILY (BULK) 15 mL 4 Active cholecalciferol (Vitamin D-3) 1.25 MG (24708 UT) capsule Take 1 capsule (1.25 mg) by mouth 1 (one) time per week. 12 capsule 1 4 Active meclizine (Antivert) 25 MG tabletIndication s:Benign paroxysmal positional vertigo, unspecified laterality TAKE ONE TABLET BY MOUTH EVERY DAY NEEDED FOR DIZZINESS (VIAL) 30 tablet 4 Active benazepril (Lotensin) 20 MG tabletIndication s:Primary hypertension TAKE 1 TABLET BY MOUTH TWICE A DAY 60 tablet 11 4 Active Lancets (OneTouch Delica Plus [id number]) miscIndications: Type 2 diabetes mellitus with diabetic nephropathy, with long-term current use of insulin ([facility]) USE TO TEST BLOOD SUGAR THREE TIMES A DAY 100 each 11 4 Active allopurinol (Zyloprim) 100 MG tablet Take 1 tablet by mouth Once per day. 4 Active amLODIPine (Norvasc) 5 MG tablet Take 1 tablet by mouth Once per day. 5 Active ammonium lactate (Lac-Hydrin) 12 % lotion Apply 1 Application. topically if needed. 5 Active brimonidine (AlphaGAN) 0.2 % ophthalmic solution Administer 1 drop into the right eye 2 times daily. 4 Active budesonide (Pulmicort) 1 MG/2ML nebulizer solution Take 1 mg by nebulization in the morning and at bedtime. 1 vial 4 Active colchicine 0.6 MG tablet Take 1 tablet by mouth Once per day. 5 Active Continuous Glucose Sensor (FreeStyle Kelly 2 Sensor) [facility] Use as directed 5 Active Trulicity 3 MG/0.5ML solution auto-injector Inject 1 Pen under the skin every 7 (seven) days. 4 Active ketoconazole (NIZOral) 2 % cream Apply 1 Application. topically Once per day. 5 Active ketorolac (Acular) 0.5 % ophthalmic solution Administer 1 drop into both eyes 2 times daily. 5 Active montelukast (Singulair) 10 MG tablet Take 1 tablet by mouth Once per day. For allergy symptoms 4 Active omeprazole (PriLOSEC) [address] capsule Take 1 capsule by mouth in the morning. 5 Active sertraline (Zoloft) 50 MG tablet Take 1 tablet by mouth Once per day. 5 Active Active Problems Problem Noted Date [...] RA Viral upper respiratory tract infection 09/19/20 Assessment & Plan (09/19/2023 9:53 AM EST): [...] 05/24/2023 Overview (02/07/2024): Colonoscopy on 02/06/24 at [facility] Assessment & Plan (07/28/2023 7:53 PM EDT): [...] knees significant risk of fall, had a FRUIT CANNER for assistance ADLs. Needs assistance and reminders [...] requested refill of Trulicity be sent to [facility] as she had difficulty picking it up at local [facility] due to supply issues Assessment & [...] Plan (05/24/2023 11:18 AM EDT): r/o hypoglycemia FRUIT CANNER will monitor symptoms of dizziness and pt [...] Encounters Date Type Department Care Team Description 01/13/2025 Telephone [facility] MEDICINE [address] [place] [phone] Keely Wilburn MD Chart prep 12/23/[address] [address] Corina Link, KELLY Care Coordination 12/23/[address] [address] Corina Link, RN Error (VOID this visit) 12/23/2024 Telephone [facility] WALK-IN CENTER [address] [place] [phone] Shelly Muñoz RN 12/19/2024 Orders Only [facility] External Provider, [facility] 12/18/2024 Telephone [facility] [address] [address] Keely Wilburn MD Hospital Follow-up 12/17/[address] [address] Keely Wilburn MD Chart prep 12/08/[address] [address] Keely Wilburn MD [facility] 12/08/2024 Patient Outreach [address] [address] Keely Wilburn MD Transition Of Care (Tcm) (HDF scheduled and SDOH screening negative and Tobacco screening negative) 12/08/[address] [address] Keely Wilburn MD Referral; order 12/08/[address] [phone] Keely Wilburn MD Durable Medical Equipment (DME Request: Hand Held Shower Head) 12/08/[address] [address] Keely Wilburn MD Hospital Follow-up 12/05/[address] [address] Keely Wilburn MD ORder 11/14/[address] [phone] Keely Wilburn MD January recall 11/14/[address] [phone] Keely Wilburn MD Durable Medical Equipment (Home Care Delivered Form: Incontinence Supplies) from Last 3 Months Immunizations Name Administration [...] 01/15/2025 10:30 AM EST Office Visit [facility] MEDICINE [address] [place] [address] Keely Wilburn MD 230 [place] [address] Health Maintenance Due Date Last Done Comments [...] with long-term current use of insulin (CMS/HCC) BI MAMMOGRAM SCREENING TOMOSYNTHESIS BILATERAL Routine 10/07/2024 [...] Blood Count 7.3 4.8 - 10.8 X10*3/uL [facility] Red Blood Count 3.73(L) 4.20 - 5.50 X10*6/uL [facility] Hemoglobin 10.3(L) 12.0 - 16.0 g/dl [facility] Hematocrit 32.4(L) 37.0 - 47.0 % [facility] Mean Corpuscular Volume 86.9 80.0 - 98.0 fL [facility] Mean Corpuscular Hemoglobin 27.6 27.0 - 33.0 pg [facility] Mean Corpuscular HGB Conc 31.8 31.0 - 35.0 g/dl [facility] Red Cell Distribution Width 13.2 11.0 - 16.0 % [facility] Platelet Count 237 160 - 400 X10*3/uL [facility] Mean Platelet Volume 11.7 9.4 - 12.3 fL [facility] Neutrophils Percent Auto 45.1 45 - 73 % [facility] Imm Gran Pct Auto 0.3 0.0 - 0.4 % [facility] Lymphocytes Percent Auto 41.9(H) 20 - 40 % [facility] Monocytes Percent Auto 10.2 2 - 11 % [facility] Eosinophils Percent Auto 2.1 0 - 4 % [facility] Basophils Percent Auto 0.4 0 - 2 % [facility] NRBC Pct Auto 0.0 0.0 - 0.2 /100WBC [facility] Neutrophils Absolute Auto 3.3 2.0 - 8.3 x10*3/uL [facility] Imm Gran Abs Auto 0.02 0.00 - 0.03 X10*3/uL [facility] Lymphocytes Absolute Auto 3.0 1.2 - 4.9 X10*3/uL [facility] Monocytes Absolute Auto 0.7 0.1 - 1.2 X10*3/uL [facility] Eosinophils Absolute Auto 0.2 0.0 - 0.4 X10*3/uL [facility] Basophils Absolute Auto 0.0 0.0 - 0.2 X10*3/uL [facility] NRBC Abs Auto 0.000 0.0 - 0.012 X10*3/uL [facility] 12/19/2024 11:0 0 AM EST 12/19/2024 11:01 AM EST Generic External Data Provider LAB BLOOD ORDERAB LES Final Result Performing Organization Address [facility] Co de Phone Number [facility] [address] [place] [phone] * (ABNORMAL) Sed Rate by Modified Westergren (12/19/2024 11:00 AM EST) Erythrocyte Sedimentation Rate 53(H) 0 - 20 MM/HR [facility] Comment:Patients with polycy themia and many hemoglobin abnormalitiesmay have depressed sed rates whereas patients with anemiamay have elevated sed rates. 12/19/2024 11:0 0 AM EST 12/19/2024 11:01 AM EST Generic External Data Provider LAB BLOOD ORDERAB LES Final Result Performing Organization Address [facility] Co de Phone Number [facility] [address] [place] [phone] * (ABNORMAL) C-reactive Protein (12/19/2024 11:00 AM EST) C Reactive Protein 0.55(H) < or = 0.50 mg/dL [facility] 12/19/2024 11:0 0 AM EST 12/19/2024 11:01 AM EST Generic External Data Provider LAB BLOOD ORDERAB LES Final Result Performing Organization Address [facility] Co de Phone Number [facility] [address] [place] [phone] * (ABNORMAL) PTH, Intact Without Calcium (12/19/2024 11:00 AM EST) Parathyroid Hormone, Intact 125.4(H) 8.7 - 77.1 pg/mL [facility] 12/19/2024 11:0 0 AM EST 12/19/2024 11:01 AM EST us Generic External Data Provider LAB BLOOD ORDERAB LES Final Result Performing Organization Address [facility] Co de Phone Number [facility] [address] [place] [address] [phone] * Magnesium (12/19/2024 11:00 AM EST) Magnesium 1.6 1.6 - 2.6 mg/dL [facility] 12/19/2024 11:0 0 AM EST 12/19/2024 11:01 AM EST [facility] External Data Provider LAB BLOOD ORDERAB LES Final Result Performing Organization Address [facility] Phone Number [facility] [address] [place] [phone] * (ABNORMAL) Comprehensive Metabolic Panel (12/19/2024 11:00 AM EST) Sodium 139 135 - 145 mmol/L [facility] Potassium 4.2 3.3 - 5.1 mmol/L [facility] Chloride 109(H) 96 - 108 mmol/L [facility] Carbon Dioxide 24 22 - 29 mmol/L [facility] Anion Gap 10(L) 12 - 20 [facility] Urea Nitrogen (BUN) 32(H) 9 - 16 mg/dL [facility] Creatinine, Serum 1.06 0.5 - 1.4 mg/dL [facility] Estimated Glomerular Filt Rate 50 [facility] Comment:Chronic Kidney Disea se: Estimated GFR < 60 mL/min/1.45e5Zoqvek Kidney Disease: Estimated GFR < 15 mL/min/1.73m2 Glucose 111 60 - 115 mg/dL [facility] Calcium 9.2 8.4 - 10.2 mg/dL [facility] Bilirubin, Total 0.4 0.0 - 1.0 mg/dL [facility] Aspartate Amino Transferase 22 5 - 31 U/L [facility] Alanine Aminotransferase 11 0 - 31 U/L [facility] Total Protein 7.7 6.5 - 8.0 g/dL [facility] Albumin Level 4.0 3.5 - 5.0 g/dL [facility] Alkaline Phosphatase 55 39 - 117 U/L [facility] 12/19/2024 11:0 0 AM EST 12/19/2024 11:01 AM EST us Generic External Data Provider LAB BLOOD ORDERAB LES Final Result [facility] [address] [place] [phone] [phone] * XR HAND WRIST RT (12/19/2024 10:23 AM EST) Anatomical Region Laterality Modality Abdomen Radiographic Marilyn ging 12/19/2024 10:2 3 AM EST Narrative 12/19/2024 10:56 AM EST ? [facility] ?[address] ?[place] [address] ?XRay Report ? Signed ? Patient: Adrianne Landeros ?MR#: [id number] ? : 1950 ?Acct:[id number] ? Age/Sex: 74 / F ?ADM Date: 12/19/24 ? Loc: HO.XRAY ? Attending Dr: Donna Albert MD ? Ordering Physician: Donna Albert MD ?? Date of Service: 12/19/24 ?? Procedure(s): XR hand wrist RT ?? Accession Number(s): [id number] ? cc: Donna Albert MD; Keely Wilburn [...] DD/ 1023 ? TD/TT: 12/19/24 1035 ? Filing Writer: ? Procedure Note Donlisainterpreter, Image - 12/19/2024 [place] [address] XRay Report Signed Patient: Adrianne LanderosMR#: [id number] : 8Acct:[id number] Age/Sex: 74 / FADM Date: 12/19/24 Loc: MIKAYLA Attending Dr: Donna Albert MD Ordering Physician: Donna Albert MD Date of Service: 12/19/24 Procedure(s): XR hand wrist RT Accession Number(s): [id number] cc: Donna Albert MD; Keely Wilburn MD [...] 12/19/24 1054 DD/ 1023 TD/TT: 12/19/24 1035 Filing Writer: us [facility] External Provider IMG XR PROCEDURES Final Result * XR HAND WRIST LT (12/19/2024 10:23 AM EST) Anatomical Region Laterality Modality Abdomen Radiographic Marilyn ging 12/19/2024 10:2 3 AM EST Narrative 12/19/2024 11:09 AM EST ? [facility] ?[address] ?[place], [place] [address] ?XRay Report ? Signed ? Patient: Landeros,Adrianne ?MR#: [id number] ? : 1950 ?Acct:[id number] ? Age/Sex: 74 / F ?ADM Date: 12/19/24 ? Loc: HO.XRAY ? Attending Dr: Donna Albert MD ? Ordering Physician: Donna Albert MD ?? Date of Service: 12/19/24 ?? Procedure(s): XR hand wrist LT ?? Accession Number(s): [id number] ? cc: Donna Albert MD; Keely Wilburn [...] signed by Rod Todd MD in OV> ?12/19/247 ? DD/ 1023 ? TD/TT: 12/19/24 1035 ? Filing Writer: ? Procedure Note Donotuseinterpreter, Image - 12/19/[address] [address] XRay Report Signed Patient: Adrianne LanedrosMR#: [id number] : 8Acct:[id number] Age/Sex: 74 / FADM Date: 12/19/24 Loc: HO.LEXY Attending Dr: Donna Albert MD Ordering Physician: Donna Albert MD Date of Service: 12/19/24 Procedure(s): XR hand wrist LT Accession Number(s): [id number] cc: Donna Albert MD; Keely Wilburn MD [...] 12/19/24 1107 DD/ 1023 TD/TT: 12/19/24 1035 Filing Writer: [facility] External Provider IMG XR PROCEDURES Final Result * (ABNORMAL) POCT HGB A1C (10/14/2024 9:16 AM EST) Hemoglobin A1C 7.0(A) 4.0 - 6.0 % QC Media Lot # [id number] Lot# Expiration Date [id number] Blood 10/14/2024 9:16 AM EST us Keely Wilburn MD POINT OF CARE TEST ENTER /EDIT ORDERABLES Final Result * BI Mammogram Screening Tomosynthesis Bilateral (10/07/2024 8:50 AM EST) Anatomical Region Laterality Modality Breast Bilateral Mammography 10/07/2024 8:50 AM EST Narrative 10/16/2024 9:41 AM EST ? [facility] ? [address] ?[place], [place] [address] ? Mammography Report ? Signed ? Patient: Landeros,Adrianne ?MR#: [id number] ? : 1950 ?Acct:[id number] ? Age/Sex: 74 / F ?ADM Date: 10/07/24 ? Loc: HO.MAMMO ? Attending Dr: Keely Wilburn MD ? Ordering Physician: Keely Wilburn MD ?Results: 1Ne ?? gative ? Date of Service: 10/07/24 ?Follow Up: 1 Year From Orig ?? inal Mammogram ? Procedure(s): MM tomosynthesis screening BI ?? Accession Number(s): [id number] ? cc: Keely Wilburn MD ? EXAMINATION: [...] DD/ 0850 ? TD/TT: 10/07/24 0905 ? Filing Writer: ? Procedure Note Chrissy, Image - 10/16/2024 [facility] [address] [place] [address] Mammography Report Signed Patient: Adrianne LanderosMR#: [id number] : 8Acct:[id number] Age/Sex: 74 / FADM Date: 10/07/24 Loc: JOSEO Attending Dr: Keely Wilburn MD Ordering Physician: eKely Wilburnesults: 1Ne gative Date of Service: 10/07/24Follow Up: 1 Year From Orig inal Mammogram Procedure(s): MM tomosynthesis screening BI Accession Number(s): [id number] cc: Keely Wilburn MD EXAMINATION: MM SCREENING [...] by: Marylou Goldstein DO 10/16/2024 09:38 AM [facility] Dictated By: Marylou Goldstein DO Signed By: <Electronically signed by Marylou Goldstein DO in OV> 10/16/[address] DD/ TD/TT: 10/07/249[address] Filing Writer: Keely Wilburn MD IMG BI PROCEDURES Edited Result - Final * (ABNORMAL) Lipid Panel with Reflex to Direct LDL (08/04/2024 9:55 AM EDT) Triglycerides 174(H) <150 mg/dL [facility] Comment:Desirable Triglyceri de: less than 150 mg/dLBorderline High Triglyceride 150-199 mg/dLHigh Triglyceride: 200-499 mg/dLVery High Triglyceride: greater than or equal to 5OO mg/dL Cholesterol 145 <200 mg/dL [facility] Comment:Desirable Cholestero l: less than 200 mg/dLBorderline High Cholesterol: 200-239 mg/dLHigh Cholesterol: greater than 239 mg/dL LDL Cholesterol Calculated 68 <100 mg/dL [facility] Comment:Desirable LDL: less than 100 mg/dLNear Optimal/Above Optimal LDL: 110- 129 mg/dLBorderline High LDL: 130-159 mg/dLHigh LDL: 160-189 mg/dLVery High LDL: greater than or equal to 190 mg/dL HDL Cholesterol 43 >40 mg/dL [facility] Comment:Desirable HDL: great er than 40 mg/dL Note: This HDL assay may give artificially low results in patients with liver disease. Blood 08/04/2024 9:55 AM EDT 08/04/2024 2:27 PM EDT us Keely Wilburn MD LAB BLOOD ORDERABLES Fin al Result Performing Organization Address [facility] Co de Phone Number [facility] [address] [place] [phone] * Hepatitis C Antibody with Reflex to HCV, RNA, Quantitative, Real-Time PCR (05/16/2024 11:17 AM EDT) Hepatitis C Antibody Nonreactive Nonreactive [facility] Comment:Antibodies to HCV no t detected; does not exclude early acuteHCV infection. Blood Venous blood specimen / Unknown 05/16/2024 11:17 AM EDT 05/16/2024 1:09 PM EDT us Anusha Real MD LAB BLOOD ORDERABLES Final Res ult Performing Organization Address [facility] Co de Phone Number [facility] [address] [place] [phone] * (ABNORMAL) Hm Colonoscopy (02/06/2024) Colonoscopy Abnormal( A) Normal [facility] Comment:Tubular adenoma; neg ative for high grade dysplasia and carcinoma us Keely Wilburn MD HEALTH MAINTENANCE Final Result Performing Organization Address [facility] Co de Phone Number [facility] [address] [place] [address] [phone] * OCCULT BLOOD STOOL X3 (11/23/2019 3:00 PM EST) OCCULT BLOOD STOOL-1 NEG NEG [facility] OCCULT BLOOD STOOL-1 DATE 11/20/2019 [facility] OCCULT BLOOD STOOL-2 NEG NEG [facility] OCCULT BLOOD STOOL-2 DATE 11/21/2019 [facility] OCCULT BLOOD STOOL-3 NEG NEG [facility] OCCULT BLOOD STOOL-3 DATE 11/23/2019 [facility] 11/23/2019 3:00 PM EST Keely Wilburn MD HISTORICAL/NON ORDERABLE LABS Final Result [facility] [address] from Last 3 Months or Most Recently Relevant to Health Maintenance Insurance [facility] Care Teams Auto Service Instructor Relationship Specialty Start Date End Date Keely Wilburn MD [address] [place] [phone] PCP - General Family Medicine 10/27/19 Team-Match 08/06/24
--- OUTSIDE RECORDS SUMMARY | 2025-01-15 09:45 | XMS_ITS | Encounter Summary ---
Author Organization [employer] Address [address] [facility] [address] 7[address] [place] [address] Care Team Providers Care Hockey Scout Name Role Phone Keely Wilburn MD Primary Care Provider + Reason for Visit * Reason Comments Med Change Request Encounter Details Date Type Department Care Team ([facility] st Contact Info) Description 11/09/2023 Refill [facility] PEDS [address] [place], [place] [phone] Kaci Le, [address] [place] [address] Type 2 diabetes mellitus with other specified complication, unspecified whether termite renewal inspector insulin use ([facility]) Social History Tobacco Use Types Packs/Day Years [...] Description 01/15/2025 10:30 AM EST Office Visit [facility] MEDICINE [address] [place] [address] Keely Wilburn MD [address] [place] [address] documented as of this encounter Visit Diagnoses Diagnosis Type 2 diabetes mellitus with other specified complication, unspecified whether custodial insulin use ([facility]) documented in this encounter Care Teams Hockey Scout Relationship Specialty Start Date End Date Keely Wilburn MD [address] [place] [phone] PCP - General Family Medicine 10/27/19 [employer] 08/06/24 documented as of this encounter
--- OUTSIDE RECORDS SUMMARY | 2025-01-15 09:45 | XMS_ITS | Encounter Summary ---
Author Organization [employer] Address [address] [facility] 7t [place] [address] Care Team Providers Care Cellar Worker Name Role Phone Keely Wilburn MD Primary Care Provider + Reason for Referral * Imaging (Urgent) - Authorized Specialty Diagnoses / Procedures Referred By Contac t Referred To Contact Radiology Diagnoses Pancreatic lesion Kidney lesion, kaibab, bilateral Procedures MR Abdomen w/ and w/o Contrast Keely Wilburn MD [address] [place] [address] Phone: tel: fax: [facility] Referral ID Status Reason Start Date Expiration Date V isits Requested Visits Authorized [id number] Authorized 12/26/2024 12/26/2025 1 1 Reason for Visit * Reason Onset Date Comments Hospital Follow-up 12/18/2024 Encounter Details Date Type Department Care Team (Late st Contact Info) Description 12/18/2024 Telephone [facility] MEDICINE [address] [place], [place] [phone] Keely Wilburn MD [address] [place], [place] [phone] Hospital Follow-up Social History Tobacco Use Types [...] 12/26/2024 4:24 PM EST TC placed to [facility] [phone], spoke to daughter Ashlyn (on HIPAA) in [...] EST TC placed to pt via BLS site interpreter (ID#[id number]) regarding r/s of HDF. No answer, LVM to call office back and ask to speak to the red team nurses. * Telephone Encounter - Marco Antonio Montanez - 12/18/2024 9:14 AM EST Tc from daughter had to cancel 12/18 HDF visit and needs to r/s. . Supervising Chef offered two other dates and times and she declined. Requesting call from nurse. documented in this encounter Plan of Treatment Upcoming Encounters Date Type Department Care Team (Late st Contact Info) Description 01/15/2025 10:30 AM EST Office Visit [facility] MEDICINE [address] [place] [address] Keely Wilburn MD [address] [place] [address] Scheduled Orders Name Type Priority Associated Diagnoses Orde r Schedule MR Abdomen w/ and w/o Contrast Imaging Urgent Pancreatic lesion Kidney lesion, kaibab, bilateral Expected: 12/26/2024 (Approximate), Expires: 12/26/2025 documented as of this encounter Visit Diagnoses Diagnosis Pancreatic lesion- Primary Kidney lesion, kaibab, bilateral documented in this encounter Care Teams Cellar Worker Relationship Specialty Start Date End Date Keely Wilburn MD [address] [place] [address] PCP - General Family Medicine 10/27/19 [employer] 08/06/24 documented as of this encounter
--- OUTSIDE RECORDS SUMMARY | 2025-01-15 09:45 | XMS_ITS | Encounter Summary ---
Author Organization [employer] Address [address] [facility] 7t [place] [address] Care Team Providers Care Certified Alcohol Drug Counselor Name Role Phone Keely Wilburn MD Primary Care Provider + Reason for Visit * Reason Onset Date Comments Care Coordination 12/23/2024 Encounter Details Date Type Department Care Team (Late st Contact Info) Description 12/23/2024 Telephone [facility] MEDICINE [address] [place], [place] [phone] Corina Link, RN [address] [place] [address] Care Coordination Social History Tobacco Use Types [...] 6:52 PM EST Labs were ordered by [facility] rheumatology. Patient has an upcoming appointment with [facility] rheumatology on12/25/24. Sending to PCP as FYI. [...] 01/15/2025 10:30 AM EST Office Visit [facility] [address] [place] [address] Keely Wilburn MD [address] [place] [address] documented as of this encounter Visit Diagnoses Not on filedocumented in this encounter Care Teams Certified Alcohol Drug Counselor Relationship Specialty Start Date End Date Keely Wilburn MD [address] [place] [address] PCP - General Family Medicine 10/27/19 [employer] 08/06/24 documented as of this encounter
--- OUTSIDE RECORDS SUMMARY | 2025-01-15 09:45 | XMS_ITS | Encounter Summary ---
Author Organization [employer] Address [address] [facility] [address] [facility] [address] 7[address] [place] [address] Care Team Providers Care Admitted Attorneys Name Role Phone Keely Wilburn MD Primary Care Provider + Reason for Visit * Reason Onset Date Comments Chart prep 12/17/2024 Encounter Details Date Type Department Care Team ([facility] st Contact Info) Description 12/17/2024 Telephone [facility] MEDICINE [address] [place], [place] [phone] Keely Wilburn MD [address] [place] [address] Chart prep Social History Tobacco Use Types [...] 10:30 AM EST Office Visit [facility] MEDICINE [address] [place] [phone] Keely Wilburn MD [address] [place] [phone] documented as of this encounter Visit Diagnoses Not on filedocumented in this encounter Care Teams Admitted Attorneys Relationship Specialty Start Date End Date Keely Wilburn MD [address] [place] [address] PCP - General Family Medicine 10/27/19 [employer] 08/06/24 documented as of this encounter
--- OUTSIDE RECORDS SUMMARY | 2025-01-15 09:45 | XMS_ITS | Encounter Summary ---
Author Organization [employer] Address [address] [place] [address] Care Team Providers Care Scale Assembly Set Up Worker Name Role Phone Keely Wilburn MD Primary Care Provider + Reason for Visit * Reason Comments Med Refill Encounter Details Date Type Department Care Team (Late st Contact Info) Description 01/18/2024 Refill [facility] MED[facility]INE [address] [place], [place] [phone] Keely Wilburn MD [address] [place], [place] [phone] Other postherpetic nervous system involvement Social History [...] 10:30 AM EST Office Visit [facility] MEDICINE [address] [place] [phone] Keely Wilburn MD [address] [place] [address] documented as of this encounter Visit Diagnoses Diagnosis Other postherpetic nervous system involvement documented in this encounter Care Teams Scale Assembly Set Up Worker Relationship Specialty Start Date End Date Keely Wilburn MD [address] [place] [address] PCP - General Family Medicine 10/27/19 [employer] 08/06/24 documented as of this encounter
--- OUTSIDE RECORDS SUMMARY | 2025-01-15 09:45 | XMS_ITS ---
Author Name Sherry Lucio NP Address [address] [place] [address] Phone [phone] [facility] Care Team Providers Care Air/Ocean Export Clerk Name Role Phone Sherry Lucio Unavailable [phone] Reason for Referral Not Available Allergies, adverse [...] No Data Available BD AUTOSHIELD DUO NDL [id number] USE WITH INSULIN TWICE DAILY 2022-09-05 No Data Meseret ilable Benazepril 20 mg Tab TAKE 1 TABLET (20 M G) BY MOUTH IN THE MORNING. DC BENAZEPRIL/HCTZ 2022-11-16 No Data Available Lantus SoloStar 100 UNIT/ML Solution Pen-injector INJECT 18 UNITS SUBCUTANEOUSLY ONCE DAILY 2023-05-31 No Data Available amLODIPine Besylate 10 mg Tab TAKE 1/2 TABLET BY MOUTH DAILY 2022-08-24 No Data Available Bkarbtvvvf-CQRK-Iooxqnbi 50/325/40 mg Tab TAKE 1 TABLET BY [...] No Data Available BD AUTOSHIELD DUO NDL [id number] USE WITH INSULIN TWICE DAILY 2023-12-25 No [...] 2023-12-04 N/A Arthritis associated with diabetes Active 12-04 N/A Urinary incontinence Active 2023-12-16 N/A Major [...] Active 2023-12-16 N/A Other problems related to nj dical facilities and other health care Active 2024-01-17 N/A Severe persistent asthma, un complicatedChronic bronchitis-Allergic bronchitis with acute exacerbation Active 2023-12-04 N/A COVID Active 2024-01-17 N/A Other problems related to nj dical facilities and other health care Active 2024-01-22 N/A Encounters Encounters Type Facility Date of Service Diagnosis/Co mplaint New patient,40-59min; chronic exacerbation, 2 stable chronic or 1 acute illness add add modifier 95 for video (do not use for phone, instead use 16442-40) [facility] Severe persistent asthma, uncomplicatedBenign paroxysmal vertigo, [...] (do not use for phone, instead use 22739-15) [facility] New patient,40-59min; chronic exacerbation, 2 stable chronic or 1 acute illness add add modifier 95 for video (do not use for phone, instead use 31322-46) [facility] New patient,40-59min; chronic exacerbation, 2 stable chronic or 1 acute illness add add modifier 95 for video (do not use for phone, instead use 91485-45) [facility] New patient,40-59min; chronic exacerbation, 2 stable chronic or 1 acute illness add add modifier 95 for video (do not use for phone, instead use 83311-93) [facility]20[place] New patient,40-59min; chronic exacerbation, 2 stable chronic or 1 acute illness add add modifier 95 for video (do not use for phone, instead use 43872-66) [facility]/20[place] New patient,40-59min; chronic exacerbation, 2 stable chronic or 1 acute illness add add modifier 95 for video (do not use for phone, instead use 42341-98) [facility]/2023 New patient,40-59min; chronic exacerbation, 2 stable chronic or 1 acute illness add add modifier 95 for video (do not use for phone, instead use 82660-74) [facility]/2023 New patient,40-59min; chronic exacerbation, 2 stable chronic or 1 acute illness add add modifier 95 for video (do not use for phone, instead use 16516-71) [facility]/2023 New patient,40-59min; chronic exacerbation, 2 stable chronic or 1 acute illness add add modifier 95 for video (do not use for phone, instead use 64713-70) [facility] 12/[place]/2023 No Data Available [facility] 01/15/2024 Severe persistent asthma, uncomplicatedUnspecified chronic bronchitis No Data Available [facility] 01/15/2024 No Data Available [facility] 01/17/2024 Severe persistent asthma, uncomplicatedUnspecified chronic bronchitisBenign [...] and other health care No Data Available [facility] 01/17/2024 No Data Available [facility] 01/17/2024 No Data Available [facility] 01/17/2024 No Data Available [facility] 01/18/2024 Severe persistent asthma, uncomplicatedUnspecified chronic bronchitisUnspecified [...] and other health care No Data Available [facility] 01/18/2024 No Data Available [facility] 01/18/2024 No Data Available [facility] 01/18/2024 No Data Available [facility] 01/21/2024 Severe persistent asthma, uncomplicatedUnspecified chronic bronchitisUnspecified [...] and other health care No Data Available [facility] 01/21/2024 Vital Signs Date of Collection Vitals [...] tive Time Current Smoking Status Never smoker 4 Sex Female History of Procedures Procedures Service Procedure code Service date Servicing provider Phone# New patient,40-59min; chronic exacerbation, 2 stable chronic or 1 acute illness add add modifier 95 for video (do not use for phone, instead use 98873-22) [address]22 2023-12-04 No Data Available No Data Availa [...] No Data Avail able No Data Available [id number] 2024-01-15 No Data Available No Data Available Medication List Documented (1159F) 1159F 2024-01-15 No Data Available No Data Meseret ilable No Data Available [id number] 2024-01-17 No Data Available No Data Available Medication List Documented (1159F) 1159F 2024-01-17 No Data Available No Data Meseret ilable Functional Status Assessed (1170F) 1170F 2024-01-17 No Data Available No Data Avail able Most recent A1c (HbA1c) or GMI level <7% (3044F) 3044F 2024-01-17 No Data Available No Data Availa ble No Data Available [id number] 2024-01-18 No Data Available No Data Available SBP 130-139 (3075F) 3075F 2024-01-18 No Data Availabl e No Data Available DBP <80 (3078F) 3078F 2024-01-18 No Data Available No Data Available Functional Status Assessed (1170F) 1170F 2024-01-18 No Data Available No Data Avail able No Data Available [id number] 2024-01-21 No Data Available No Data Available [...] exacerbation 2024-01-17 09:49:12 Follow up plan for a cute symptoms: ARUN follow up scheduled 01/18/24Severe persistent [...] modifier 95)Continue to see PCP. Follow-up with [facility] as [...] and one episode of vomiting this am. [facility] tested member this am and she [...] modifier 95)Continue to see PCP. Follow-up with [facility] as [...] by pcpRX: OMEPRAZOLE followed and monitored by pcp3/06/04: Summary of acute complaint: Member has been [...] and one episode of vomiting this am. 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 f/u sched 01/21/24-call CB 04/06 for change in medical statusCall CB if sob, fever, wheezing 2024-01-21 06:26:06 Phone (patient, pare nt, or guardian); 5-10 minutes of medical discussion (no modifier 95)Continue to see PCP. Follow-up with Jodie as needed for any acute or disease [...] and one episode of vomiting this am. 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 f/u sched 01/21/24-call CB 04/06 for [...]
--- OUTSIDE RECORDS SUMMARY | 2025-01-15 09:45 | XMS_ITS | Encounter Summary ---
Author Organization [employer] Address [address] [facility] [facility] [address] [address]t [place] [address] Care Team Providers Care Change Of Address Clerk Name Role Phone Keely Wilburn MD Primary Care Provider + Encounter Details Date Type Department Care Team (Late st Contact Info) Description 12/23/2024 Telephone [facility] [address] [place] [address] Shelly Muñoz RN Social History Tobacco Use [...] regarding message below. Will re-task for [place] [id number] Hermes ----- Message from Keely Wilburn MD [...] [facility] [address] [place] [address] Keely Wilburn MD [address] [place] [address] documented as of this encounter Visit Diagnoses Not on filedocumented in this encounter Care Teams Change Of Address Clerk Relationship Specialty Start Date End Date Keely Wilburn MD [address] [place] [address] PCP - General Family Medicine 10/27/19 [employer] 08/06/24 documented as of this encounter
--- OUTSIDE RECORDS SUMMARY | 2025-01-15 09:45 | XMS_ITS | Encounter Summary ---
Author Organization [employer] Address [address] [place] [address] Care Team Providers Care Instructional Assistant Name Role Phone Keely Wilburn MD Primary Care Provider + Encounter Details Date Type Department Care Team (Late st Contact Info) Description 05/07/2024 Telephone [facility] MEDICINE [address] [place], [place] [phone] Keely Wilburn MD [address] [place], [place] [phone] Social History Tobacco Use Types Packs/Day Years [...] contact # if there is any questions [phone] documented in this encounter Plan of Treatment Upcoming Encounters Date Type Department Care Team (Late st Contact Info) Description 01/15/2025 10:30 AM EST Office Visit [facility] MED[facility]INE [address] [place] [phone] Keely Wilburn MD [address] [place] [address] documented as of this encounter Visit Diagnoses Not on filedocumented in this encounter Care Teams Instructional Assistant Relationship Specialty Start Date End Date Keely Wilburn MD [address] [place] [address] PCP - General Family Medicine 10/27/19 [employer] 08/06/24 documented as of this encounter
--- OUTSIDE RECORDS SUMMARY | 2025-01-15 09:45 | XMS_ITS | Encounter Summary ---
Author Organization [employer] Address [address]t [place] [address] Care Team Providers Care Propulsion Motor And Generator Repairer Name Role Phone Keely Wilburn MD Primary Care Provider + Encounter Details Date Type Department Care Team (Late st Contact Info) Description 12/19/2024 Orders Only [facility] External Provider, [facility] Social History Tobacco Use Types Packs/Day [...] Miscellaneous Notes * Result Encounter Note - eKely Wilburn MD - 12/19/2024 10:57 AM EST [...] Office Visit [facility] [address] [place] [address] Keely Wilburn MD [address] [place], [place] [phone] documented as of this encounter Procedures Procedure [...] Hormone, Intact 125.4(H) 8.7 - 77.1 pg/mL [facility] 12/19/2024 11:0 0 AM EST 12/19/2024 11:01 AM EST Generic External Data Provider LAB BLOOD ORDERAB LES Final Result Performing Organization Address [facility] de Phone Number [facility] [address] [place] [phone] * (ABNORMAL) Sed Rate by Modified Urbanergren (12/19/2024 11:00 AM EST) Erythrocyte Sedimentation Rate 53(H) 0 - 20 MM/HR [facility] Comment:Patients with polycy themia and many hemoglobin abnormalitiesmay have depressed sed rates whereas patients with anemiamay have elevated sed rates. 12/19/2024 11:0 0 AM EST 12/19/2024 11:01 AM EST Generic External Data Provider LAB BLOOD ORDERAB LES Final Result Performing Organization Address [facility] Co de Phone Number [facility] [address] [place] [phone] * (ABNORMAL) C-reactive Protein (12/19/2024 11:00 AM EST) C Reactive Protein 0.55(H) < or = 0.50 mg/dL [facility] 12/19/2024 11:0 0 AM EST 12/19/2024 11:01 AM EST us Generic External Data Provider LAB BLOOD ORDERAB LES Final Result Performing Organization Address City/[facility] Co de Phone Number [facility] [address] [place] [phone] * Magnesium (12/19/2024 11:00 AM EST) Magnesium 1.6 1.6 - 2.6 mg/dL [facility] 12/19/2024 11:0 0 AM EST 12/19/2024 11:01 AM EST Generic External Data Provider LAB BLOOD ORDERAB LES Final Result Performing Organization Address [facility] Phone Number [facility] [address] [place] [phone] * (ABNORMAL) Comprehensive Metabolic Panel (12/19/2024 11:00 AM EST) Sodium 139 135 - 145 mmol/L [facility] Potassium 4.2 3.3 - 5.1 mmol/L [facility] Chloride 109(H) 96 - 108 mmol/L [facility] Carbon Dioxide 24 22 - 29 mmol/L [facility] Anion Gap 10(L) 12 - 20 [facility] Urea Nitrogen (BUN) 32(H) 9 - 16 mg/dL [facility] Creatinine, Serum 1.06 0.5 - 1.4 mg/dL [facility] Estimated Glomerular Filt Rate 50 [facility] Comment:Chronic Kidney Disea se: Estimated GFR < 60 mL/min/1.80l5Oruvto Kidney Disease: Estimated GFR < 15 mL/min/1.73m2 Glucose 111 60 - 115 mg/dL [facility] Calcium 9.2 8.4 - 10.2 mg/dL [facility] Bilirubin, Total 0.4 0.0 - 1.0 mg/dL [facility] Aspartate Amino Transferase 22 5 - 31 U/L [facility] Alanine Aminotransferase 11 0 - 31 U/L [facility] Total Protein 7.7 6.5 - 8.0 g/dL [facility] Albumin Level 4.0 3.5 - 5.0 g/dL [facility] Alkaline Phosphatase 55 39 - 117 U/L [facility] 12/19/2024 11:0 0 AM EST 12/19/2024 11:01 AM EST us Generic External Data Provider LAB BLOOD ORDERAB LES Final Result [facility] [address] [place], [place] [phone] * (ABNORMAL) CBC auto differential (12/19/2024 11:00 AM EST) White Blood Count 7.3 4.8 - 10.8 X10*3/uL [facility] Red Blood Count 3.73(L) 4.20 - 5.50 X10*6/uL [facility] Hemoglobin 10.3(L) 12.0 - 16.0 g/dl [facility] Hematocrit 32.4(L) 37.0 - 47.0 % [facility] Mean Corpuscular Volume 86.9 80.0 - 98.0 fL [facility] Mean Corpuscular Hemoglobin 27.6 27.0 - 33.0 pg [facility] Mean Corpuscular HGB Conc 31.8 31.0 - 35.0 g/dl [facility] Red Cell Distribution Width 13.2 11.0 - 16.0 % [facility] Platelet Count 237 160 - 400 X10*3/uL [facility] Mean Platelet Volume 11.7 9.4 - 12.3 fL [facility] Neutrophils Percent Auto 45.1 45 - 73 % [facility] Imm Gran Pct Auto 0.3 0.0 - 0.4 % [facility] Lymphocytes Percent Auto 41.9(H) 20 - 40 % [facility] Monocytes Percent Auto 10.2 2 - 11 % [facility] Eosinophils Percent Auto 2.1 0 - 4 % [facility] Basophils Percent Auto 0.4 0 - 2 % [facility] NRBC Pct Auto 0.0 0.0 - 0.2 /100WBC [facility] Neutrophils Absolute Auto 3.3 2.0 - 8.3 x10*3/uL [facility] Imm Gran Abs Auto 0.02 0.00 - 0.03 X10*3/uL [facility] Lymphocytes Absolute Auto 3.0 1.2 - 4.9 X10*3/uL [facility] Monocytes Absolute Auto 0.7 0.1 - 1.2 X10*3/uL [facility] Eosinophils Absolute Auto 0.2 0.0 - 0.4 X10*3/uL [facility] Basophils Absolute Auto 0.0 0.0 - 0.2 X10*3/uL [facility] NRBC Abs Auto 0.000 0.0 - 0.012 X10*3/uL [facility] 12/19/2024 11:0 0 AM EST 12/19/2024 11:01 AM EST us Generic External Data Provider LAB BLOOD ORDERAB LES Final Result Performing Organization Address City/State/[facility] Co de Phone Number [facility] [address] [place] [address] [phone] * XR HAND WRIST LT (12/19/2024 10:23 AM EST) Anatomical Region Laterality Modality Abdomen Radiographic Marilyn ging 12/19/2024 10:2 3 AM EST Narrative 12/19/2024 11:09 AM EST ? [facility] ?[address] ?[place] [address] ?XRay Report ? Signed ? Patient: Landeros,Adrianne ?MR#: [id number] ? : 1950 ?Acct:[id number] ? Age/Sex: 74 / F ?ADM Date: 02/07/25 ? Loc: HO.XRAY ? Attending Dr: Donna Albert MD ? Ordering Physician: Donna Albert MD ?? Date of Service: 12/19/24 ?? Procedure(s): XR hand wrist LT ?? Accession Number(s): [id number] ? cc: Donna Albert MD; Keely Wilburn [...] DD/ 1023 ? TD/TT: 12/19/24 1035 ? Psychiatrist: ? Procedure Note Chrissy, Image - 12/19/2024 [place] [address] XRay Report Signed Patient: Adrianne LanderosMR#: [id number] : 8Acct:[id number] Age/Sex: 74 / FADM Date: 12/19/24 Loc: HO.LEXY Attending Dr: Donna Albert MD Ordering Physician: Donna Albert MD Date of Service: 12/19/24 Procedure(s): XR hand wrist LT Accession Number(s): [id number] cc: Donna Albert MD; Keely Wilburn MD [...] joint of the thumb. Electronically signed by: oRd Todd MD 12/19/2024 11:07 AM EST RP Dictated By: Rod Todd MD Signed By: <Electronically signed by Rod Todd MD in OV> 12/19/24 1107 DD/ 1023 TD/TT: 12/19/24 1035 Psychiatrist: [facility] External Provider IMG XR PROCEDURES Final Result * XR HAND WRIST RT (12/19/2024 10:23 AM EST) Anatomical Region Laterality Modality Abdomen Radiographic Marilyn ging 12/19/2024 10:2 3 AM EST Narrative 12/19/2024 10:56 AM EST ? [facility] ?[address] ?[place] [address] ?XRay Report ? Signed ? Patient: Landeros,Adrianne ?MR#: [id number] ? : 1950 ?Acct:[id number] ? Age/Sex: 74 / F ?ADM Date: 12/19/24 ? Loc: HO.XRAY ? Attending Dr: Donna Albert MD ? Ordering Physician: Donna Albert MD ?? Date of Service: 12/19/24 ?? Procedure(s): XR hand wrist RT ?? Accession Number(s): [id number] ? cc: Donna Albert MD; Keely Wilburn [...] DD/ 1023 ? TD/TT: 12/19/24 1035 ? Psychiatrist: ? Procedure Note Chrissy, Image - 12/19/2024 [place] [address] XRay Report Signed Patient: Adrianne LanderosMR#: [id number] : 1950cct:[id number] Age/Sex: 74 / FADM Date: 12/19/24 Loc: HO.LEXY Attending Dr: Donna Albert MD Ordering Physician: Donna Albert MD Date of Service: 12/19/24 Procedure(s): XR hand wrist RT Accession Number(s): [id number] cc: Donna Albert MD; Keely Wilburn MD [...] 12/19/24 1054 DD/ 1023 TD/TT: 12/19/24 1035 Psychiatrist: [facility] External Provider IMG XR PROCEDURES Final Result documented in this encounter Visit Diagnoses Not on filedocumented in this encounter Care Teams Propulsion Motor And Generator Repairer Relationship Specialty Start Date End Date Keely Wilburn MD [address] [place] [phone] PCP - General Family Medicine 10/27/19 [employer] 08/06/24 documented as of this encounter
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
--- OUTSIDE RECORDS SUMMARY | 2025-01-15 09:45 | XMS_ITS | Encounter Summary ---
Author Organization [facility] Address [address] [facility] 7t [place] [address] Care Team Providers Care Copper Roller Handler Printing Name Role Phone Keely Wilburn MD Primary Care Provider + Encounter Details Date Type Department Care Team (Late Contact Info) Description 07/10/2023 Telephone [facility] [address] [place] [address] [phone] Katty Gutierrez LPN Social History Tobacco Use [...] 01/15/2025 10:30 AM EST Office Visit [facility] [address] [place] [address] [phone] Keely Wilburn MD [address] [place] [address] documented as of this encounter Visit Diagnoses Not on filedocumented in this encounter Care Teams Copper Roller Handler Printing Relationship Specialty Start Date End Date Keely Wilburn MD [address] [place] [phone] PCP - General Family Medicine 10/27/19 [employer] 08/06/24 documented as of this encounter
--- OUTSIDE RECORDS SUMMARY | 2025-01-15 09:45 | XMS_ITS | Encounter Summary ---
Author Organization [employer] Address [address] 7[address] [place] [address] Care Team Providers Care Seed Cleaner Name Role Phone Keely Wilburn MD Primary Care Provider + Reason for Visit * Reason Comments Med Change Request Encounter Details Date Type Department Care Team (Late st Contact Info) Description 11/06/2023 Refill [facility] [address] [place], [place] [phone] Keely Wilburn MD [address] [place], [place] [phone] Osteopenia of neck of femur, unspecified laterality [...] 01/15/2025 10:30 AM EST Office Visit [facility] [address] [place] [phone] Keely Wilburn MD [address] [place] [phone] documented as of this encounter Visit Diagnoses Diagnosis Osteopenia of neck of femur, unspecified laterality documented in this encounter Care Teams Seed Cleaner Relationship Specialty Start Date End Date Keely Wilburn MD [address] [place] [phone] PCP - General Family Medicine 10/27/19 [employer] 08/06/24 documented as of this encounter
--- OUTSIDE RECORDS SUMMARY | 2025-01-15 09:45 | XMS_ITS | Encounter Summary ---
Author Organization [employer] Address [address] [place] [phone] Care Team Providers Care Silo Tender Name Role Phone Keely Wilburn MD Primary Care Provider [phone] Reason for Visit * Reason Comments Pain Pain Encounter Details Date Type Department Care Team (Latest Contact Info) Description 12/23/2024 9:00 AM EST Office Visit Orthopedic Surgery - [place] [address] [place] [phone] Eloisa Chaudhari PA [address] [place] [phone] Primary osteoarthritis of both knees (Primary Dx) [...] follow-up. She ambulates with a walker. She Yemeni- speaking and her daughter is interpreting. She reports her knees are actually feeling pretty good. She is undergoing a procedure in the next week for her right lower extremity for varicose veins and does see vascular. She does have diabetes. PAST MEDICAL/SURGICAL HISTORY: Patient Active Problem List Diagnosis Date Noted Anemia 10/03/2024 Asthma 10/03/2024 Diabetes mellitus type 2, uncomplicated ([facility]) 10/03/2024 Hypertension 10/03/2024 Closed fracture of lower end of humerus 08/11/2010 Past Surgical History: Procedure Laterality Date OTHER SURGICAL HISTORY PROCEDURE: DENIES PREVIOUS SURGERY OTHER SURGICAL HISTORY PROCEDURE: MS LIG/TRNSXJ FLP TUBE ABDL/VAG APPR UNI/BI MEDICATIONS [...] sunrise and Liang bilateral knees Comparison: X-rays [facility] many years ago Findings: Left knee mild to moderate osteoarthritis tricompartmental with chondrocalcinosis. Right knee moderate to severe tricompartmental osteoarthritis. Henlawson view normal patellofemoral relationships mild arthritis. Impression: [...] Upcoming Encounters Date Type Department Care Team ([facility] st Contact Info) Description 01/27/2025 9:15 AM EDT Office Visit Orthopedic Surgery - [place] [phone] [phone] Cr Bolton, DPM [address] [address] documented as of this encounter Visit Diagnoses Diagnosis Primary osteoarthritis of both knees- Primary documented in this encounter Care Teams Silo Tender Relationship Specialty Start Date End Date Keely Wilburn MD [address] [facility] [address] [place] [address] PCP - General 03/01/22 documented as of this encounter
--- OUTSIDE RECORDS SUMMARY | 2025-01-15 09:45 | XMS_ITS ---
Author Organization [facility] Address [address] [place] [phone] Care Team Providers Care Shoe Packer Name Role Phone Cosmo VAZQUEZ, Keely Primary Care Provider Unavail able Rod Arthur Unavailable [phone] Mathew Boss Unavailable Unavailable REASON FOR VISIT hospitalized Encounters Encounter Location Date Provider Diagnosis [facility] [address] [place] [phone] 09/10/2023 Rod Arthur Plan Of Treatment No Information Progress Notes * EDILBERTO SHEARERDOB:1950 (73 yo F)Acc No.[id number]:09/10/2023 Patient:?EDILBERTO SHEARER :1950???Age:73 Y???Sex:Female Address:[address] [place] [phone] * true * Date:? Generated for Ashley becerra/Stewart/eTransmitting on:?01/15/2025 09:45 AM EST
--- OUTSIDE RECORDS SUMMARY | 2025-01-15 09:45 | XMS_ITS | Encounter Summary ---
Author Organization [employer] Address [address] [place] [address] Care Team Providers Care Unstacker Name Role Phone Keely Wilburn MD Primary Care Provider + Reason for Visit * Reason Comments Med Refill Encounter Details Date Type Department Care Team (Late st Contact Info) Description 12/09/2023 Refill [facility] [address] [place], [place] [phone] Keely Wilburn MD [address] [place], [place] [phone] Osteopenia of neck of femur, unspecified laterality [...] Visit [facility] [address] [place] [phone] Keely Wilburn MD [address] [place] [phone] documented as of this encounter Visit Diagnoses Diagnosis Osteopenia of neck of femur, unspecified laterality documented in this encounter Care Teams Unstacker Relationship Specialty Start Date End Date Keely Wilburn MD [address] [place] [phone] PCP - General Family Medicine 10/27/19 [employer] 08/06/24 documented as of this encounter
--- OUTSIDE RECORDS SUMMARY | 2025-01-15 09:45 | XMS_ITS | Encounter Summary ---
Author Organization [employer] Address [address] [facility] 7t [place] [address] Care Team Providers Care Fractionation Plant Supervisor Name Role Phone Keely Wilburn MD Primary Care Provider + Encounter Details Date Type Department Care Team (Late st Contact Info) Description 11/08/2023 Abstract [facility] [address] [place], [place] [phone] Keely Wilburn MD 230 [place], [place] [phone] Social History Tobacco Use Types Packs/Day Years [...] 01/15/2025 10:30 AM EST Office Visit [facility] [address] [place] [phone] Keely Wilburn MD [address] [place] [phone] documented as of this encounter Visit Diagnoses Not on filedocumented in this encounter Care Teams Fractionation Plant Supervisor Relationship Specialty Start Date End Date Keely Wilburn MD [address] [place] [phone] PCP - General Family Medicine 10/27/19 [employer] 08/06/24 documented as of this encounter
--- OUTSIDE RECORDS SUMMARY | 2025-01-15 09:45 | XMS_ITS | Encounter Summary ---
Author Organization [employer] Address [address] [facility] 7t [place] [address] Care Team Providers Care Quarry Extraction Worker Name Role Phone Keely Wilburn MD Primary Care Provider + Reason for Visit * Reason Onset Date Comments Hospital Follow-up 12/08/2024 Encounter Details Date Type Department Care Team ([facility] st Contact Info) Description 12/08/2024 Telephone [facility] 230 [place], [place] [phone] Keely Wilburn MD 230 [place], [place] [phone] Hospital Follow-up Social History Tobacco Use Types [...] pt daughter requesting a HDF appt. Hospital: [place], [place] Date of admission: 12/02 Discharge date: 12/05 Diagnosed: Diarrhea, Vomiting, Abdominal Pain, Chest Pain, Dizziness *Send message to [place] Clinical Care Coordinators documented in this encounter Plan of Treatment Upcoming Encounters Date Type Department Care Team (Late st Contact Info) Description 01/15/2025 10:30 AM EST Office Visit [facility] [address] [place] [phone] Keely Wilburn MD [address] [place] [address] documented as of this encounter Visit Diagnoses Not on filedocumented in this encounter Care Teams Quarry Extraction Worker Relationship Specialty Start Date End Date Keely Wilburn MD [address] [place] [phone] PCP - General Family Medicine 10/27/19 [employer] 08/06/24 documented as of this encounter
--- OUTSIDE RECORDS SUMMARY | 2025-01-15 09:45 | XMS_ITS | Encounter Summary ---
Author Organization [employer] Address [address] [place] [address] Care Team Providers Care Pharmacy Picking Technician Name Role Phone Keely Wilburn MD Primary Care Provider + Reason for Visit * Reason Onset Date Comments Referral 12/08/2024 order 12/08/2024 Encounter Details Date Type Department Care Team (Late st Contact Info) Description 12/08/2024 Telephone [facility] 230 [place], [place] [phone] Keely Wilburn MD 230 [place], [place] [phone] Referral; order Social History Tobacco Use Types [...] more info provided. Any questions contact Ashlyn Indonesian documented in this encounter Plan of Treatment Upcoming Encounters Date Type Department Care Team (Late st Contact Info) Description 01/15/2025 10:30 AM EST Office Visit [facility] [address] [place] [phone] Keely Wilburn MD [address] [place] [phone] documented as of this encounter Visit Diagnoses Not on filedocumented in this encounter Care Teams Pharmacy Picking Technician Relationship Specialty Start Date End Date Keely Wilburn MD [address] [place] [address] PCP - General Family Medicine 10/27/19 [employer] 08/06/24 documented as of this encounter
--- OUTSIDE RECORDS SUMMARY | 2025-01-15 09:46 | XMS_ITS | Encounter Summary ---
Author Organization [employer] Address [address] 7t [place] [address] Care Team Providers Care Railroad Police Name Role Phone Keely Wilburn MD Primary Care Provider + Reason for Visit * Reason Comments Med Refill Encounter Details Date Type Department Care Team (Late st Contact Info) Description 05/08/2024 Refill [facility] MEDICINE [address] [place], [place] [phone] Keely Wilburn MD 230 [place], [place] [phone] Osteopenia of neck of femur, unspecified laterality [...] Description 01/15/2025 10:30 AM EST Office Visit [facility] MEDICINE [address] [place] [phone] Keely Wilburn MD [address] [place] [phone] documented as of this encounter Visit Diagnoses Diagnosis Osteopenia of neck of femur, unspecified laterality documented in this encounter Care Teams Railroad Police Relationship Specialty Start Date End Date Keely Wilburn MD [address] [place] [address] [phone] PCP - General Family Medicine 10/27/19 [employer] 08/06/24 documented as of this encounter
--- OUTSIDE RECORDS SUMMARY | 2025-01-15 09:46 | XMS_ITS | Encounter Summary ---
Author Organization [employer] Address [address] 7t [place] [address] Care Team Providers Care Legal Office Administrator Name Role Phone Keely Wilburn MD Primary Care Provider + Reason for Visit * Reason Comments Med Refill Encounter Details Date Type Department Care Team (Late st Contact Info) Description 08/06/2024 Refill [facility] MEDICINE 230 [place], [place] [phone] Keely Wilburn MD 230 [place], [place] [phone] Benign paroxysmal positional vertigo, unspecified laterality Social [...] Description 01/15/2025 10:30 AM EST Office Visit [facility] MEDICINE [address] [place] [phone] Keely Wilburn MD [address] [place] [phone] documented as of this encounter Visit Diagnoses Diagnosis Benign paroxysmal positional vertigo, unspecified laterality documented in this encounter Care Teams Legal Office Administrator Relationship Specialty Start Date End Date Keely Wilburn MD [address] [place] [phone] PCP - General Family Medicine 10/27/19 [employer] 08/06/24 documented as of this encounter
--- OUTSIDE RECORDS SUMMARY | 2025-01-15 09:46 | XMS_ITS | Encounter Summary ---
Author Organization [employer] Address [address] 7t [place] [address] Care Team Providers Care Splicer Operator Name Role Phone Keely Wilburn MD Primary Care Provider + Reason for Visit * Reason Onset Date Comments Nurse Triage 07/07/2024 Encounter Details Date Type Department Care Team (Late st Contact Info) Description 07/07/2024 Telephone [facility] MEDICINE 230 [place], [place] [phone] Keely Wilburn MD 230 [place] [address] Nurse Triage Social History Tobacco Use Types [...] 07/07/2024 12:02 PM EDT Triage call with [employer] [place] Technician ID [id number] Pt blood sugar this morning was 302. [...] - 07/07/2024 10:29 AM EDT TC from [facility] with [employer] [facility] reports high blood sugars over 200 . Todays Blood Sugar without fasting was 302 Pt non symptomatic at the moment documented in this encounter Plan of Treatment Upcoming Encounters Date Type Department Care Team (Late st Contact Info) Description 01/15/2025 10:30 AM EST Office Visit [facility] MEDICINE 230 [place], [place] [phone] Keely Wilburn MD 230 [place], [place] [phone] documented as of this encounter Visit Diagnoses Not on filedocumented in this encounter Care Teams Splicer Operator Relationship Specialty Start Date End Date Keely Wilburn MD 230 [place], [place] [phone] PCP - General Family Medicine 10/27/19 [employer] 08/06/24 documented as of this encounter
--- OUTSIDE RECORDS SUMMARY | 2025-01-15 09:46 | XMS_ITS | Encounter Summary ---
Author Organization [employer] Address [address] 7t [place] [address] Care Team Providers Care Test Cell Technician Name Role Phone Keely Wilburn MD Primary Care Provider + Reason for Visit * Reason Comments Med Refill Encounter Details Date Type Department Care Team (Late st Contact Info) Description 07/08/2024 Refill [facility] MEDICINE 230 [place], [place] [phone] Anusha Real MD 230 [place], [place] [phone] Benign paroxysmal positional vertigo, unspecified laterality Social [...] Description 01/15/2025 10:30 AM EST Office Visit [facility] MEDICINE [address] [place] [phone] Keely Wilburn MD [address] [place] [phone] documented as of this encounter Visit Diagnoses Diagnosis Benign paroxysmal positional vertigo, unspecified laterality documented in this encounter Care Teams Test Cell Technician Relationship Specialty Start Date End Date Keely Wilburn MD [address] [place] [phone] PCP - General Family Medicine 10/27/19 [employer] 08/06/24 documented as of this encounter
--- OUTSIDE RECORDS SUMMARY | 2025-01-15 09:46 | XMS_ITS | Encounter Summary ---
Author Organization [employer] Address [address] [facility] [address] 7t [place] [address] Care Team Providers Care Ammunition Assembly Laborer Name Role Phone Keely Wilburn MD Primary Care Provider + Reason for Visit * Reason Onset Date Comments Chart prep 01/13/2025 Encounter Details Date Type Department Care Team ([facility] st Contact Info) Description 01/13/2025 Telephone [facility] MEDICINE 230 [place], [place] [phone] Keely Wilburn MD 230 [place] [address] Chart prep Social History Tobacco Use Types [...] Telephone Encounter - Monique Alaniz [place] - 01/13/2025 9:28 AM EST Chart Prep Labs: not done Images: not done Vaccines due: yes Referrals: pending appt Screenings: eye exam , Foot Exam Overdue care gaps: A1C, Glucose documented in this encounter Plan of Treatment Upcoming Encounters Date Type Department Care Team (Late st Contact Info) Description 01/15/2025 10:30 AM EST Office Visit [facility] MEDICINE [address] [place] [phone] Keely Wilburn MD 230 [place] [phone] documented as of this encounter Visit Diagnoses Not on filedocumented in this encounter Care Teams Ammunition Assembly Laborer Relationship Specialty Start Date End Date Keely Wilburn MD [address] [place] [phone] PCP - General Family Medicine 10/27/19 [employer] 08/06/24 documented as of this encounter
--- OUTSIDE RECORDS SUMMARY | 2025-01-15 09:46 | XMS_ITS | Encounter Summary ---
Author Organization [employer] Address [address] [facility] 7t [place] [address] Care Team Providers Care Assessment Director Name Role Phone Keely Wilburn MD Primary Care Provider + Reason for Visit * Reason Comments Med Refill Encounter Details Date Type Department Care Team (Late st Contact Info) Description 08/18/2024 Refill [facility] MEDICINE 230 [place], [place] [phone] Keely Wilburn MD 230 [place], [place] [phone] Benign paroxysmal positional vertigo, unspecified laterality; Type 2 diabetes mellitus with other specified complication, unspecified whether dedicated intermodal truck driver insulin use ([facility]) Social History Tobacco Use Types [...] 01/15/2025 10:30 AM EST Office Visit [facility] MEDICINE [address] [place] [address] Keely Wilburn MD [address] [place] [phone] documented as of this encounter Visit Diagnoses Diagnosis Benign paroxysmal positional vertigo, unspecified laterality Type 2 diabetes mellitus with other specified complication, unspecified whether dedicated intermodal truck driver insulin use ([facility]) documented in this encounter Care Teams Assessment Director Relationship Specialty Start Date End Date Keely Wilbunr MD [address] [place] [phone] PCP - General Family Medicine 10/27/19 [employer] 08/06/24 documented as of this encounter
--- OUTSIDE RECORDS SUMMARY | 2025-01-15 09:46 | XMS_ITS | Encounter Summary ---
Author Organization [employer] Address [address] [facility] 7t [place] [address] Care Team Providers Care Surgical Appliance Fitter Name Role Phone Keely Wilburn MD Primary Care Provider + Reason for Visit * Reason Comments Med Refill Encounter Details Date Type Department Care Team (Late st Contact Info) Description 08/20/2024 Refill [facility] MEDICINE 230 [place], [place] [phone] Keely Wilburn MD 230 [place], [place] [phone] Benign paroxysmal positional vertigo, unspecified laterality; Type 2 diabetes mellitus with other specified complication, unspecified whether long term care pharmacist insulin use ([facility]) Social History Tobacco Use [...] Description 01/15/2025 10:30 AM EST Office Visit [facility] MEDICINE [address] [place] [phone] Keely Wilburn MD [address] [place] [phone] documented as of this encounter Visit Diagnoses Diagnosis Benign paroxysmal positional vertigo, unspecified laterality Type 2 diabetes mellitus with other specified complication, unspecified whether long term care pharmacist insulin use ([facility]) documented in this encounter Care Teams Surgical Appliance Fitter Relationship Specialty Start Date End Date Keely Wilburn MD [address] [place] [phone] PCP - General Family Medicine 10/27/19 [employer] 08/06/24 documented as of this encounter
--- OUTSIDE RECORDS SUMMARY | 2025-01-15 09:46 | XMS_ITS | Encounter Summary ---
Author Organization [employer] Address [address] [facility] 7t [place] [address] Care Team Providers Care Chick Sexer Name Role Phone Keely Wilburn MD Primary Care Provider + Reason for Visit * Reason Comments Med Refill Encounter Details Date Type Department Care Team (Late st Contact Info) Description 07/09/2024 Refill [facility] MEDICINE 230 [place], [place] [phone] Keely Wilburn MD 230 [place], [place] [phone] Slow transit constipation; Type 2 diabetes mellitus with hyperglycemia, with long-term current use of insulin ([facility]) Social History Tobacco Use Types Packs/Day Years [...] Description 01/15/2025 10:30 AM EST Office Visit [facility] MEDICINE [address] [place] [address] Keely Wilburn MD [address] [place] [phone] documented as of this encounter Visit Diagnoses Diagnosis Slow transit constipation Type 2 diabetes mellitus with hyperglycemia, with long-term current use of insulin ([facility]) documented in this encounter Care Teams Chick Sexer Relationship Specialty Start Date End Date Keely Wilburn MD [address] [place] [address] [phone] PCP - General Family Medicine 10/27/19 [employer] 08/06/24 documented as of this encounter
--- OUTSIDE RECORDS SUMMARY | 2025-01-15 09:46 | XMS_ITS | Encounter Summary ---
Author Organization [employer] Address [address] 7t [place] [address] Care Team Providers Care Balance Wheel Screw Hole Tapper Name Role Phone Keely Wilburn MD Primary Care Provider + Reason for Visit * Reason Onset Date Comments Durable Medical Equipment 08/08/2024 Encounter Details Date Type Department Care Team (Late st Contact Info) Description 08/08/2024 Telephone [facility] MEDICINE 230 [place], [place] [phone] Keely Wilburn MD 230 [place], [place] [phone] Durable Medical Equipment Social History Tobacco Use [...] Description 01/15/2025 10:30 AM EST Office Visit [facility] MEDICINE 230 [place] [phone] Keely Wilburn MD 230 [place] [address] documented as of this encounter Visit Diagnoses Not on filedocumented in this encounter Care Teams Balance Wheel Screw Hole Tapper Relationship Specialty Start Date End Date Keely Wilburn MD 230 [place] [phone] PCP - General Family Medicine 10/27/19 [employer] 08/06/24 documented as of this encounter
--- OUTSIDE RECORDS SUMMARY | 2025-01-15 09:46 | XMS_ITS | Encounter Summary ---
Author Organization [employer] Address [address] [facility] 7t [place] [address] Care Team Providers Care Industrial Chemistry Teacher Name Role Phone Keely Wilburn MD Primary Care Provider + Reason for Visit * Reason Comments Med Refill Encounter Details Date Type Department Care Team (Late st Contact Info) Description 07/08/2024 Refill [facility] MEDICINE 230 [place], [place] [phone] Keely Wilburn MD 230 [place], [place] [phone] Type 2 diabetes mellitus with hyperglycemia, with long-term current use of insulin ([facility]); Slow transit constipation Social History Tobacco Use [...] Description 01/15/2025 10:30 AM EST Office Visit [facility] MEDICINE 230 [place] [address] Keely Wilburn MD 230 [place] [phone] documented as of this encounter Visit Diagnoses Diagnosis Type 2 diabetes mellitus with hyperglycemia, with long-term current use of insulin ([facility]) Slow transit constipation documented in this encounter Care Teams Industrial Chemistry Teacher Relationship Specialty Start Date End Date Keely Wilburn MD [address] [place] [address] [phone] PCP - General Family Medicine 10/27/19 [employer] 08/06/24 documented as of this encounter
--- OUTSIDE RECORDS SUMMARY | 2025-01-15 09:46 | XMS_ITS | Encounter Summary ---
Author Organization [employer] Address [address] [facility] 7t [place] [address] Care Team Providers Care Cardiac Nurse Specialist Name Role Phone Keely Wilburn MD Primary Care Provider + Reason for Visit * Reason Comments Med Refill Encounter Details Date Type Department Care Team (Late st Contact Info) Description 07/16/2024 Refill [facility] MEDICINE 230 [place], [place] [phone] Keely Wilburn MD 230 [place], [place] [phone] Type 2 diabetes mellitus with hyperglycemia, with long-term current use of insulin ([facility]) Social History Tobacco Use Types [...] AM EST Office Visit [facility] MEDICINE [address] [place] [address] [phone] Keely Wilburn MD [address] [place] [phone] documented as of this encounter Visit Diagnoses Diagnosis Type 2 diabetes mellitus with hyperglycemia, with long-term current use of insulin ([facility]) documented in this encounter Care Teams Cardiac Nurse Specialist Relationship Specialty Start Date End Date Keely Wilburn MD [address] [place] [phone] PCP - General Family Medicine 10/27/19 [employer] 08/06/24 documented as of this encounter
--- OUTSIDE RECORDS SUMMARY | 2025-01-15 09:46 | XMS_ITS | Encounter Summary ---
Author Organization [employer] Address [address] 7t [place] [address] Care Team Providers Care Alarm Mechanism Adjuster Name Role Phone Keely Wilburn MD Primary Care Provider + Reason for Visit * Reason Comments Med Refill Encounter Details Date Type Department Care Team (Late st Contact Info) Description 08/11/2024 Refill [facility] MEDICINE 230 [place], [place] [phone] Keely Wilburn MD 230 [place], [place] [phone] Benign paroxysmal positional vertigo, unspecified laterality Social [...] 10:30 AM EST Office Visit [facility] MEDICINE [address] [place] [phone] Keely Wilburn MD [address] [place] [address] [phone] documented as of this encounter Visit Diagnoses Diagnosis Benign paroxysmal positional vertigo, unspecified laterality documented in this encounter Care Teams Alarm Mechanism Adjuster Relationship Specialty Start Date End Date Keely Wilburn MD [address] [place] [phone] PCP - General Family Medicine 10/27/19 [employer] 08/06/24 documented as of this encounter
--- OUTSIDE RECORDS SUMMARY | 2025-01-15 09:46 | XMS_ITS | Encounter Summary ---
Author Organization [employer] Address [address] [facility] 7t [place] [address] Care Team Providers Care Gold Miner Blasting Name Role Phone Keely Wilburn MD Primary Care Provider + Reason for Visit * Reason Comments Med Refill Encounter Details Date Type Department Care Team (Late st Contact Info) Description 08/13/[address] [facility] MEDICINE 230 [place], [place] [phone] Keely Wilburn MD 230 [place], [place] [phone] Benign paroxysmal positional vertigo, unspecified laterality; Type 2 diabetes mellitus with other specified complication, unspecified whether plate former insulin use ([facility]) Social History Tobacco Use Types Packs/Day [...] AM EST Office Visit [facility] MEDICINE [address] [place] [phone] Keely Wilburn MD [address] [place] [phone] documented as of this encounter Visit Diagnoses Diagnosis Benign paroxysmal positional vertigo, unspecified laterality Type 2 diabetes mellitus with other specified complication, unspecified whether plate former insulin use ([facility]) documented in this encounter Care Teams Gold Miner Blasting Relationship Specialty Start Date End Date Keely Wilburn MD [address] [place] [phone] PCP - General Family Medicine 10/27/19 [employer] 08/06/24 documented as of this encounter
== END 2025-01-15 09:15 | disposition home or self-care (01) ==
PROVIDERS: PCP Internal Medicine; Visit Provider Surgery Vascular Surgery
DX: I83.11 Varicose veins of right lower extremity with inflammation (principal); I83.12 Varicose veins of left lower extremity with inflammation
CPT/HCPCS: 99213

== ENCOUNTER → 2025-01-15 08:55 | Outpatient (BNVA) | payer OTHER, SELFPAY | PROVIDERS: PCP Internal Medicine; Visit Provider Surgery Vascular Surgery | DX: I83.11 Varicose veins of right lower extremity with inflammation (principal); I83.12 Varicose veins of left lower extremity with inflammation | CPT/HCPCS: 99212 ==

== ENCOUNTER 2025-04-07 09:28 | Outpatient (AMB) | payer OTHER, SELFPAY ==
--- NOTE | 2025-04-07 07:19 | A.OFFVIS_ITS ---
Vital Signs 04/07/25 09:36 Height 4 ft 11 in Weight 191 lb 12.835 oz BMI 38.7 BP 130/78 Blood Pressure Location Rt brachial Position Sitting Pulse 64 Pulse Source Pulse Oximeter Pulse Oximetry (%) 97 Oxygen Delivery Method Room Air Intake Visit Reasons: T2DM Intake Note: Patient presents today for a follow-up on Type 2 Diabetes Mellitus: Last Diabetic eye exam was on: 02/19/2025 Last Podiatry exam was on: 03/31/2025 Dr. De Jesus Most recent HbA1c: 6.4%, 04/07/2025 Random Glucose- 149 mg/dL, Today Plate Fitter Required: Yes Plate Fitter Language: Drycleaner Services: Plate Fitter Offered & Declined Accompanied by: COUNT ROOM CLERK Allergies penicillin G [PENICILLIN G] Allergy (Mild, Verified 01/15/25 09:02) PRURITIS amoxicillin Allergy (Unknown, Verified 01/15/25 09:02) rash, itching aspirin Adverse Reaction (Verified 01/15/25 09:02) Hives HPI Comments Details: 75 YO F with PMHx T2DM, HTN, HLD who is seen in F/U for T2DM. The patient was last seen 10/07/2024 with the an A1c of 7.3%. Hemoglobin A1c 04/07/2025 7% ?Initially diagnosed with T2DM in 1991 during routine screening exam. ?Was initially started on treatment with Metformin. This was stopped due to diminished GFR. ?Current regimen Trulicity 1.5 mg weekly and Lantus 18 units q AM. ?Checks sugars 1-2 times daily. average 157 checks 1-2 times per day ?Family history of T2DM in Brother and Son. ?Has eyes checked yearly, last eye exam 02/2025 no retinopathy ?Denies Neuropathy, sees podiatry q 3 months. ?Has mild Nephropathy, on Benazapril 20 mg PO daily. urine micro: 85 08/22/2024 eGFR increased to 50 07/2024 ?Has HLD, on Rosuvastatin 20 mg PO daily. LDL 66 01/24/2023. ?Denies CAD. ?Has CKD Stage III. diet: improved appetite following a balanced meal plan ?Weight: Stable. ?Has not had diabetes education. 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 Pneumonia due to COVID-19 virus Postmenopausal bleeding Osteopenia Obesity Microalbuminuria Medial epicondylitis Lateral epicondylitis of right elbow Injury of face Edema, lower extremity DJD of shoulder Chronic right shoulder pain Cellulitis, toe Arthritis of knee Abnormal gait Asthma Anemia Stroke Cataract of both eyes CKD (chronic kidney disease) Vitamin D deficiency HLD (hyperlipidemia) HTN (hypertension) T2DM (type 2 diabetes mellitus) Diabetes Surgical History H/O: hysterectomy Hx of colonoscopy History of temporal artery biopsy Hx of elbow surgery History of right shoulder fracture Family History Father No problems noted. Mother No problems noted. Daughter Arthritis Daughter Arthritis Daughter Arthritis Social History Household Members: Children Housing: Apartment Are you a primary home care companion to a significant other at home: No Do you presently have visiting nurse or other home services: Yes Alcohol intake: never Patient Tobacco Use Status: Never used Tobacco service: No Current occupational status: disabled Physical Exam Vital Signs: Last Vital Signs Pulse 64 04/07/25 09:36 BP 130/78 04/07/25 09:36 Pulse Ox 97 04/07/25 09:36 Oxygen Delivery Method Room Air 04/07/25 09:36 BMI result Body Mass Index 38.7 Const Other: Absence of Cushingoid features. Absence of acromegalic features. Neck exam reveals nl size thyroid about 15 gms. No thyroid nodules palpable. Heart S1 S2, Reg R/R. No M/R G. Skin exam reveals absence of vitiligo or acanthosis nigricans. Foot exam deferred no edema Results AMB Hemoglobin A1c AMB Hemoglobin A1c 6.4 % Last Edit by MARNIE Galeano on 04/07/25 09:52 Results Reviewed Results Reviewed: Laboratory Last Values Glucose (Clinic) 149 mg/dL (60-115) H 04/07/25 09:44 Hgb A1c (Clinic) 6.4 % (4.0-6.0) H 04/07/25 09:51 Assessment & Plan Assessment & Plan (1) T2DM (type 2 diabetes mellitus): Code(s): E11.9 - Type 2 diabetes mellitus without complications Category: Medical Qualifiers: Diabetes mellitus terminal superintendent insulin use: with skilled nursing use Diabetes mellitus complication status: with hyperglycemia Qualified Code(s): E11.65 - Type 2 diabetes mellitus with hyperglycemia; Z79.4 - FPC (current) use of insulin Plan: 75-year-old type 2 diabetic on insulin GLP 1 agonist with a A1c of 7%. She had been approved a number of months ago for freestyle Kelly 2 but has not yet been trained. At the time the prior authorization was submitted, we are not aware that freestyle 2 is being phased out in a few months. I would recommend that new prior authorization be obtained for both freestyle Kelly 3 reader and for freestyle Kelly 3+ sensors. She is 75 and lives alone. Hypoglycemic episode for this patient may result in a fall in substantial morbidity related to this. Patient and daughter agree with treatment plan. Continue current medications The patient had an opportunity to ask questions regarding treatment plan. The patient expressed understanding and agreement with the above treatment plan. The patient is aware they should contact our office by phone for worsening glucose readings or for any low blood sugars which may warrant a change in diabetes medication. Compliance is encouraged with medications and any followup testing/consults which may have been ordered. Orders: Orders AMB Hemoglobin A1c Today E11.65 - Type 2 diabetes mellitus with hyperglycemia, Z79.4 - FPC (current) use of insulin Referrals Diabetes Education Referral E11.65 - Type 2 diabetes mellitus with hyperglycemia, Z79.4 - FPC (current) use of insulin Medications: New FreeStyle Kelly 3 Plus Sensor (blood-glucose sensor) every 15 days 2 ea 11RF NS E11.65 - Type 2 diabetes mellitus with hyperglycemia, Z79.4 - FPC (current) use of insulin FreeStyle Kelly 3 [place] (blood-glucose,vendor analyst,cont) As directed for use with sensors 1 ea 0RF NS E11.65 - Type 2 diabetes mellitus with hyperglycemia, Z79.4 - terminal gauger supervisor (current) use of insulin FreeStyle Kelly 3 [place] (blood-glucose,vendor analyst,cont) As directed for use with sensors 1 ea 0RF NS E11.65 - Type 2 diabetes mellitus with hyperglycemia, Z79.4 - terminal gauger supervisor (current) use of insulin FreeStyle Kelly 3 Plus Sensor (blood-glucose sensor) every 15 days 2 ea 11RF NS E11.65 - Type 2 diabetes mellitus with hyperglycemia, Z79.4 - terminal gauger supervisor (current) use of insulin Discontinued flash glucose sensor (FreeStyle Kelly 2 Sensor kit) Discontinued Reason: Doctor's Order As directed 2 ea 11RF E11.65 - Type 2 diabetes mellitus with hyperglycemia, Z79.4 - terminal gauger supervisor (current) use of insulin flash glucose sensor (FreeStyle Kelly 14 Day Sensor kit) Discontinued Reason: Doctor's Order As directed 1 ea 0RF Coding Level of Care Code Tele Est Pt Level 4 (73823) Complex EM visit Add On G2211 Diagnoses Type 2 diabetes mellitus with hyperglycemia, with long-term current use of insulin E11.65; Z79.4 Diabetes mellitus skilled nursing insulin use: with terminal superintendent use Diabetes mellitus complication status: with hyperglycemia Time Spent (min) 30 Comment Time spent reviewing labs/provider notes, face to face, chart doc
[2025-04-07 09:36] VITALS: BP 130/78; PULSE 64; O2SAT 97; BMI 38.7
[2025-04-07 09:48] LABS: Glucose, Whole Blood 149 mg/dL (60-115)
--- OUTSIDE RECORDS SUMMARY | 2025-04-07 10:02 | XMS_ITS | Clinical Summary ---
Author Organization [facility], Address [address] [place] [address] [place] [address] Phone Care Team Providers Care Specialist Field Engineer Name Role Phone Keely Wilburn MD Primary Care Provider + [phone] Allergies Active Allergy Reactions Criticality Noted Date [...] NEEDED 0 Active Lancets (ONETOUCH DELICA PLUS [id number]) misc USE SEG N LO INDICADO PAN [...] Encounters Date Type Department Care Team Description 03/26/2025 Documentation Only [facility], [address] [place] [address] Juju Avila 03/16/2025 3:00 PM EDT Office Visit [facility], [address] [place] [address] Terrance Garcia MD 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) 03/06/2025 Documentation Only [facility], [address] [place] [address] Juju Avila from Last 3 Months Immunizations Immunization Administration Dates Next Due Hepatitis B 05/21/2017,04/17/2017 [...] Sign Reading Time Taken Comments Blood Pressure 128/74 03/16/2025 3:28 PM EDT Pulse 67 03/16/2025 3:28 PM EDT Temperature - - Respiratory Rate - - Oxygen Saturation - - Inhaled Oxygen Concentration - - Weight 81.4 kg (179 lb 6.4 oz) 12/09/2019 2:42 P M EST Height - - Body Mass Index - - Plan of Treatment Upcoming Encounters Date Type Department Care Team (Late st Contact Info) Description 09/14/2025 3:30 PM EST Office Visit [facility], [address] [place] [address] Terrance Garcia MD [address] [place] [phone] Health Maintenance Due Date Last Done Comments Diabetes: Ophthalmology Exam 12/19/2019 Diabetes: Pedal Pulse Checked 12/19/2019 Diabetes: Sensory Foot Exam 12/19/2019 Diabetes: Visual Foot Exam 12/19/2019 Diabetes: Hemoglobin A1C 04/17/2025 025, 05/16/2024, 01/24/2023, Additional history exists Hepatitis B Vaccine Aged Out 05/21/2017, 7 No longer eligible based on patient's age to complete this topic Pneumococcal Vaccine: 50+ Years Completed 05/31/2023, 08/17/2015, 07/04/2008, Additional history exists Pneumococcal Vaccine: Peds (0 to 5 Years) and At-Risk Patients (6 to 49 Years) Discontinued 05/31/2023, 08/17/2015, 07/04/2008, Additional history exists Influenza Vaccine Completed 07/31/2024, , 10/27/2019, Additional history exists Procedures Procedure Name Priority Date/Time Associated Diagnosis Comments URINE ALBUMIN / CREATININE RATIO Routine 02/14/2025 9:21 AM EDT PROTEIN / CREATININE RATIO, URINE Routine 02/14/2025 9:21 AM EDT RENAL FUNCTION PANEL Routine 02/14/2025 9:21 AM EDT URINALYSIS WITH MICROSCOPIC Routine 02/14/2025 9:21 AM EDT CBC AND DIFFERENTIAL Routine 02/14/2025 9:21 AM EDT HEMOGLOBIN A1C Routine 09/28/2022 2:01 PM EST Type 2 diabetes mellitus with diabetic nephropathy (HCC) from Last 3 Months or Most Recently Relevant to Health Maintenance Results * (ABNORMAL) CBC and Differential (02/14/2025 9:21 AM EDT) WBC 8.6 3.4 - 10.8 x10E3/uL [facility] RBC 3.60(L) 3.77 - 5.28 x10E6/uL [facility] Hemoglobin 9.9(L) 11.1 - 15.9 g/dL [facility] Hematocrit 31.1(L) 34.0 - 46.6 % [facility] MCV 86 79 - 97 fL [facility] MCH 27.5 26.6 - 33.0 pg [facility] MCHC 31.8 31.5 - 35.7 g/dL [facility] RDW 12.9 11.7 - 15.4 % [facility] Platelets 186 150 - 450 x10E3/uL [facility] Neutrophils Relative 58 Not Estab. % [facility] Lymphocytes Relative 31 Not Estab. % [facility] Monocytes 8 Not Estab. % [facility] Eosinophils Relative 3 Not Estab. % [facility] Basophils Relative 0 Not Estab. % [facility] Neutrophils Absolute 4.9 1.4 - 7.0 x10E3/uL [facility] Lymphocytes Absolute 2.7 0.7 - 3.1 x10E3/uL [facility] Monocytes Absolute 0.7 0.1 - 0.9 x10E3/uL [facility] Eosinophils Absolute 0.3 0.0 - 0.4 x10E3/uL [facility] Basophils Absolute 0.0 0.0 - 0.2 x10E3/uL [facility] Immature Granulocytes 0 Not Estab. % [facility] Immature Grans (Absolute) 0.0 0.0 - 0.1 x10E3/uL [facility] 02/14/2025 9:21 AM EDT 02/14/2025 us Terrance Garcia MD LAB BLOOD ORDERABLES Final Re sult [facility] [address] [place] [address] * (ABNORMAL) Renal Function Panel (02/14/2025 9:21 AM EDT) Glucose 104(H) 70 - 99 mg/dL [facility] BUN 35(H) 8 - 27 mg/dL [facility] Creatinine 1.08(H) 0.57 - 1.00 mg/dL [facility] eGFR CKD-EPI CR 2020 53(L) >59 mL/min/1.7 3 [facility] BUN/Creatinine Ratio 32(H) 12 - 28 [facility] Sodium 140 134 - 144 mmol/L [facility] Potassium 4.3 3.5 - 5.2 mmol/L [facility] Chloride 105 96 - 106 mmol/L [facility] Bicarbonate (CO2) 21 20 - 29 mmol/L [facility] Calcium 9.6 8.7 - 10.3 mg/dL [facility] Phosphorus 4.2 3.0 - 4.3 mg/dL [facility] Albumin 4.4 3.8 - 4.8 g/dL [facility] 02/14/2025 9:21 AM EDT 02/14/2025 Terrance Garcia MD LAB BLOOD ORDERABLES Final Re sult Performing Organization Address City/[facility] Co de Phone Number [facility] [address] [place] [address] * (ABNORMAL) Hemoglobin A1c (09/28/2022 2:01 PM EST) Hemoglobin A1C 6.8(H) (4.0-5.6) % [facility] Comment: MONITORING: In known diabetic patients, hemoglobin A1c targets should be discussed with health care provider. DIAGNOSTIC USE: ??The [place] Diabetes Association (ADA) and the World Health [...] Supplement 1 Testing performed or reported by [facility], a Service of [facility], [address] [place] [id number] Luis Andino MD, Refuse Laborer [facility]# [id number] Blood specimen (specimen) Venous blood / Unknown 09/28/2022 2:01 PM EST 09/28/2022 2:03 PM EST Terrance Garcia MD LAB BLOOD ORDERABLES Final Re sult [facility] from Last 3 Months or Most Recently Relevant to Health Maintenance [place] [address] [place] [address] [facility] [employer] Dual SNP ([id number]) [place] [id number] Care Teams Specialist Field Engineer Relationship Specialty Start Date End Date Keely Wilburn MD [address] [place] [address] [phone] PCP - General Internal Medicine 02/11/20
== END 2025-04-07 10:10 | disposition home or self-care (01) ==
LOC: HO.ENCR 09:29
PROVIDERS: PCP Internal Medicine; Visit Provider Nurse Practitioner Adult Health
DX: E11.65 Type 2 diabetes mellitus with hyperglycemia (principal); Z79.4 Long term (current) use of insulin
CPT/HCPCS: 99214; G2211

== ENCOUNTER → 2025-04-07 09:28 | Outpatient (BNVA) | payer OTHER, SELFPAY | PROVIDERS: PCP Internal Medicine; Visit Provider Nurse Practitioner Adult Health | DX: E11.65 Type 2 diabetes mellitus with hyperglycemia (principal); Z79.4 Long term (current) use of insulin; Z79.85 Long-term (current) use of injectable non-insulin antidiabetic drugs | CPT/HCPCS: 82947; 83036; 99212 ==

== ENCOUNTER 2025-04-21 06:54 | Outpatient (AMB) | payer OTHER, SELFPAY ==
--- NOTE | 2025-04-21 07:08 | A.OFFVIS_ITS ---
Intake Intake Visit Reasons: T2DM Product Inspection Coordinator Services: Product Inspection Coordinator Offered & Declined Product Inspection Coordinator Name: Pt's Daughter Accompanied by: Daughter Allergies penicillin G [PENICILLIN G] Allergy (Mild, Verified 01/15/25 09:02) PRURITIS amoxicillin Allergy (Unknown, Verified 01/15/25 09:02) rash, itching aspirin Adverse Reaction (Verified 01/15/25 09:02) Hives HPI Comprehensive Diabetes Asmnt Most Recent Diabetes Results: Hemoglobin A1c 9.1 % 04/15/19 Microalb/Creat Ratio 71.9 ug/mg cr (<30) H 08/22/24 Cholesterol 145 mg/dL (<200) 08/04/24 HDL Cholesterol 43 mg/dL (>40) 08/04/24 Triglycerides 174 mg/dL (<150) H 08/04/24 Creatinine 1.06 mg/dL (0.5-1.4) 12/19/24 Blood Urea Nitrogen 32 mg/dL (9-16) H 12/19/24 Sodium 139 mmol/L (135-145) 12/19/24 Potassium 4.2 mmol/L (3.3-5.1) 12/19/24 Chloride 109 mmol/L (96-108) H 12/19/24 Carbon Dioxide 24 mmol/L (22-29) 12/19/24 Calcium 9.2 mg/dL (8.4-10.2) 12/19/24 AST 22 U/L (5-31) 12/19/24 ALT 11 U/L (0-31) 12/19/24 Total Protein 7.7 g/dL (6.5-8.0) 12/19/24 Albumin 4.0 g/dL (3.5-5.0) 12/19/24 [facility] Medical History On colchicine therapy Calcium pyrophosphate deposition disease (CPPD) Elevated uric acid in blood Right elbow pain Knee pain, bilateral Pain and swelling of right wrist Tenosynovitis of left wrist Tubular adenoma of colon Benign paroxysmal positional vertigo Vascular insufficiency Urinary incontinence Rheumatoid factor positive Pure hypercholesterolemia 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 Pneumonia due to COVID-19 virus Postmenopausal bleeding Osteopenia Obesity Microalbuminuria Medial epicondylitis Lateral epicondylitis of right elbow Injury of face Edema, lower extremity DJD of shoulder Chronic right shoulder pain Cellulitis, toe Arthritis of knee Abnormal gait Asthma Anemia Stroke Cataract of both eyes CKD (chronic kidney disease) Vitamin D deficiency HLD (hyperlipidemia) HTN (hypertension) T2DM (type 2 diabetes mellitus) Diabetes Surgical History H/O: hysterectomy Hx of colonoscopy History of temporal artery biopsy Hx of elbow surgery History of right shoulder fracture Family History Father No problems noted. Mother No problems noted. Daughter Arthritis Daughter Arthritis Daughter Arthritis Social History Household Members: Children Housing: Apartment Are you a primary child care teacher to a significant other at home: No Do you presently have visiting nurse or other home services: Yes Alcohol intake: never Patient Tobacco Use Status: Never used Tobacco service: No Current occupational status: disabled Assessment & Plan Assessment & Plan (1) T2DM (type 2 diabetes mellitus): Code(s): E11.9 - Type 2 diabetes mellitus without complications Qualifiers: Diabetes mellitus nursing home insulin use: with job press operator use Diabetes mellitus complication status: with hyperglycemia Qualified Code(s): E11.65 - Type 2 diabetes mellitus with hyperglycemia; Z79.4 - nursing home (current) use of insulin Plan: Patient at visit to set up an insert Kelly 3+ with [place] Instructed patient sensors water proof you can shower, or swim do not submerge sensor in water for over 30 minutes Is sensor falls off cannot put back in you need to replace sensor, customer service number given to patient for sensor replacement Sensor placed on the back of Left arm Patient left visit with sensor in warmup Reviewed how to interpret trend arrows Discussed lag time between finger stick and sensor data.? Instructed patient the importance of having blood glucometer for backup testing if needed Reviewed delay of CGM from fingersticks Reminded Pt that if symptoms do not match sensor still needs to check fingersticks. Portions of this note were created using voice recognition software, please excuse any words or phrases that may have been misinterpreted. Patient Instructions: Patient instruction: CGM provides information on blood glucose control throughout the day, including hyperglycemia and hypoglycemia. ? Continue to monitor blood glucose as instructed. Follow nutrition guidelines provided. Report any discomfort promptly to health care provider. ?Stay well-hydrated. You can bathe ,shower, swim and exercise while wearing the glucose sensor. Do not submerge glucose sensor in water for more than 30 minutes. Instrucciones para el paciente: CGM proporciona informaci?n sobre el control de la glucosa en christian a lo wenceslao del d?a, incluidas la hiperglucemia y la hipoglucemia. Contin?e controlando la glucosa en christian seg?n las instrucciones. Siga las pautas de nutrici?n proporcionadas. Informe cualquier molestia de inmediato al proveedor de atenci?n m?dica. Mantente isa hidratado. Puede ba?arse, ducharse, nadar y hacer ejercicio mientras usa el sensor de glucosa. No sumerja el sensor de glucosa en agua gerardo m?s de 30 minutos. Retire el sensor para edil resonancia magn?melany o edil tomograf?a computarizada. Evite la m?quina de nichelle X en los aeropuertos: retire el sensor o solicite la varita Coding Level of Care Code Est Pt Level 1 (07462) Diagnoses Type 2 diabetes mellitus with hyperglycemia, with long-term current use of insulin E11.65; Z79.4 Diabetes mellitus nursing home insulin use: with nursing home use Diabetes mellitus complication status: with hyperglycemia
== END 2025-04-21 07:22 | disposition home or self-care (01) ==
LOC: HO.ENCR 06:55
PROVIDERS: PCP Internal Medicine; Visit Provider Registered Nurse Diabetes Educator
DX: E11.65 Type 2 diabetes mellitus with hyperglycemia (principal); Z79.4 Long term (current) use of insulin

== ENCOUNTER 2025-04-21 07:23 | Outpatient (REF) | payer OTHER, SELFPAY ==
[2025-04-21 09:52] LABS: MANUAL DIFF FLAG NO
[2025-04-21 09:58] LABS: Basophils Absolute Auto 0.1 X10*3/uL (0.0-0.2); Basophils Percent Auto 0.7 % (0-2); Eosinophils Absolute Auto 0.3 X10*3/uL (0.0-0.4); Eosinophils Percent Auto 4.1 % (0-4); Hematocrit 33.4 % (37.0-47.0); Hemoglobin 10.5 g/dl (12.0-16.0); Imm Gran Abs Auto 0.02 X10*3/uL (0.00-0.03); Imm Gran Pct Auto 0.3 % (0.0-0.4); Lymphocytes Absolute Auto 2.9 X10*3/uL (1.2-4.9); Lymphocytes Percent Auto 38.7 % (20-40); Mean Corpuscular HGB Conc 31.4 g/dl (31.0-35.0); Mean Corpuscular Hemoglobin 27.7 pg (27.0-33.0); Mean Corpuscular Volume 88.1 fL (80.0-98.0); Monocytes Absolute Auto 0.7 X10*3/uL (0.1-1.2); Monocytes Percent Auto 9.9 % (2-11); Neutrophils Absolute Auto 3.5 x10*3/uL (2.0-8.3); Neutrophils Percent Auto 46.3 % (45-73); Platelet Count 221 X10*3/uL (160-400); Red Blood Count 3.79 X10*6/uL (4.20-5.50); White Blood Count 7.5 X10*3/uL (4.8-10.8)
[2025-04-21 10:18] LABS: Alanine Aminotransferase 13 U/L (0-31); Albumin Level 4.2 g/dL (3.5-5.0); Alkaline Phosphatase 76 U/L (39-117); Anion Gap 12 (12-20); Aspartate Amino Transferase 21 U/L (5-31); Bilirubin Total 0.4 mg/dL (0.0-1.0); Blood Urea Nitrogen 35 mg/dL (9-16); Calcium 9.1 mg/dL (8.4-10.2); Carbon Dioxide 28 mmol/L (22-29); Chloride 107 mmol/L (96-108); Estimated Glomerular Filt Rate 53; Glucose Random 151 mg/dL (60-115); Potassium 4.5 mmol/L (3.3-5.1); Sodium 142 mmol/L (135-145); Total Protein 7.4 g/dL (6.5-8.0)
[2025-04-21 10:37] LABS: Vitamin D 25-OH Total 48.8 ng/mL (>30)
[2025-04-21 10:40] LABS: Erythrocyte Sedimentation Rate 70 MM/HR (0-20)
[2025-04-21 11:31] LABS: Parathyroid Hormone Intact 139.9 pg/mL (8.7-77.1)
== END 2025-04-21 07:24 | disposition home or self-care (01) ==
LOC: HO.10HDL 07:23
PROVIDERS: Visit Provider Student in an Organized Health Care Education/Training Program
DX: E55.9 Vitamin D deficiency, unspecified (principal); M11.20 Other chondrocalcinosis, unspecified site; E11.65 Type 2 diabetes mellitus with hyperglycemia; Z79.4 Long term (current) use of insulin
CPT/HCPCS: 36415; 80053; 82306; 83970; 85025; 85652; 86140; 99211

== ENCOUNTER 2025-04-28 08:36 | Outpatient (AMB) | payer OTHER, SELFPAY ==
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
[2025-04-28 08:55] VITALS: BP 134/64; PULSE 71; O2SAT 94; BMI 38.3
--- OUTSIDE RECORDS SUMMARY | 2025-04-28 08:57 | XMS_ITS | Clinical Summary ---
Author Organization [facility], Address [address] [place] [address] [place] [address] Phone Care Team Providers Care Bologna Maker Name Role Phone Keely Wilburn MD Primary Care Provider + [phone] Allergies Active Allergy Reactions Criticality Noted Date [...] NEEDED 0 Active Lancets (ONETOUCH DELICA PLUS [id number]) misc USE SEG N LO INDICADO PAN [...] Only [facility], [address] [place] [address] Juju Avila 03/16/2025 3:00 PM EDT Office Visit [facility], [address] [place] [address] Terrance Garcia MD 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) 03/06/2025 Documentation Only [facility], [address] [place] [address] Juju Avila from Last 3 Months Immunizations [...] Visit [facility], [address] [place] [address] Terrance Garcia MD [address] [place] [id number] Health Maintenance Due Date Last Done Comments [...] WBC 8.6 3.4 - 10.8 x10E3/uL [facility] RBC 3.60(L) 3.77 - 5.28 x10E6/uL [facility] Hemoglobin 9.9(L) 11.1 - 15.9 g/dL [facility] Hematocrit 31.1(L) 34.0 - 46.6 % [facility] MCV 86 79 - 97 fL [facility] MCH 27.5 26.6 - 33.0 pg [facility] MCHC 31.8 31.5 - 35.7 g/dL [facility] RDW 12.9 11.7 - 15.4 % [facility] Platelets 186 150 - 450 x10E3/uL [facility] Neutrophils Relative 58 Not Estab. % [facility] Lymphocytes Relative 31 Not Estab. % [facility] Monocytes 8 Not Estab. % [facility] Eosinophils Relative 3 Not Estab. % [facility] Basophils Relative 0 Not Estab. % [facility] Neutrophils Absolute 4.9 1.4 - 7.0 x10E3/uL [facility] Lymphocytes Absolute 2.7 0.7 - 3.1 x10E3/uL [facility] Monocytes Absolute 0.7 0.1 - 0.9 x10E3/uL [facility] Eosinophils Absolute 0.3 0.0 - 0.4 x10E3/uL [facility] Basophils Absolute 0.0 0.0 - 0.2 x10E3/uL [facility] Immature Granulocytes 0 Not Estab. % [facility] Immature Grans (Absolute) 0.0 0.0 - 0.1 x10E3/uL [facility] 02/14/2025 9:21 AM EDT 02/14/2025 us Terrance Garcia MD LAB BLOOD ORDERABLES Final Re sult [facility] [address] [place] [address] * (ABNORMAL) Renal Function Panel (02/14/2025 9:21 AM EDT) Glucose 104(H) 70 - 99 mg/dL [facility] BUN 35(H) 8 - 27 mg/dL [facility] Creatinine 1.08(H) 0.57 - 1.00 mg/dL [facility] eGFR CKD-EPI CR 2020 53(L) >59 mL/min/1.7 3 [facility] BUN/Creatinine Ratio 32(H) 12 - 28 [facility] Sodium 140 134 - 144 mmol/L [facility] Potassium 4.3 3.5 - 5.2 mmol/L [facility] Chloride 105 96 - 106 mmol/L [facility] Bicarbonate (CO2) 21 20 - 29 mmol/L [facility] Calcium 9.6 8.7 - 10.3 mg/dL [facility] Phosphorus 4.2 3.0 - 4.3 mg/dL [facility] Albumin 4.4 3.8 - 4.8 g/dL [facility] 02/14/2025 9:21 AM EDT 02/14/2025 Terrance Garcia MD LAB BLOOD ORDERABLES Final Re sult Performing Organization Address [facility] Co de Phone Number [facility] [address] [place] [address] * (ABNORMAL) Hemoglobin A1c (09/28/2022 2:01 PM EST) Hemoglobin A1C 6.8(H) (4.0-5.6) % [facility] Comment: MONITORING: In known diabetic patients, hemoglobin A1c targets should be discussed with health care provider. DIAGNOSTIC USE: ??The [place] Diabetes Association (ADA) and the World Health [...] Supplement 1 Testing performed or reported by [facility], a Service of [facility], [address] [place] [id number] Luis Andino MD, Pickle P[employer] [facility]# [id number] Blood specimen (specimen) Venous blood / Unknown 09/28/2022 2:01 PM EST 09/28/2022 2:03 PM EST Terrance Garcia MD LAB BLOOD ORDERABLES Final Re sult [facility] from Last 3 Months or Most Recently Relevant to Health Maintenance [place] [address] [facility] [employer] Dual SNP ([id number]) [place] [id number] Care Teams Bologna Maker Relationship Specialty Start Date End Date Keely Wilburn MD [address] [place] [address] [phone] PCP - General Internal Medicine 02/11/20
== END 2025-04-28 10:08 | disposition home or self-care (01) ==
LOC: HO.RHE 08:37
PROVIDERS: PCP Internal Medicine; Visit Provider Student in an Organized Health Care Education/Training Program
DX: M11.20 Other chondrocalcinosis, unspecified site (principal); R76.8 Other specified abnormal immunological findings in serum; M85.89 Other specified disorders of bone density and structure, multiple sites; Z79.899 Other long term (current) drug therapy
CPT/HCPCS: 99213; G2211

== ENCOUNTER → 2025-04-28 08:36 | Outpatient (BNVA) | payer OTHER, SELFPAY | PROVIDERS: PCP Internal Medicine; Visit Provider Student in an Organized Health Care Education/Training Program | DX: M81.0 Age-related osteoporosis without current pathological fracture (principal); M11.20 Other chondrocalcinosis, unspecified site; R76.8 Other specified abnormal immunological findings in serum; M85.89 Other specified disorders of bone density and structure, multiple sites; Z79.899 Other long term (current) drug therapy | CPT/HCPCS: 99212 ==

== ENCOUNTER 2025-06-30 08:32 | Outpatient (AMB) | payer OTHER, SELFPAY ==
--- OUTSIDE RECORDS SUMMARY | 2024-02-06 03:30 | XMS_ITS ---
Author Organization [facility] Address [address] [place] [id number] Care Team Providers Care Motor And Generator Brush Maker Name Role Phone Keely Wilburn MD Primary Care Provider Unavail able Rod Arthur Unavailable [phone] Mathew Boss Unavailable Unavailable REASON FOR VISIT screening colon Encounters Encounter Location Date Provider Diagnosis [facility] Outpatient [address] [place] [id number] 02/06/2024 Rod Arthur Encounter for scre ening colonoscopy Z12.11 ; Colon polyps K63.5 ; Diverticulosis of large intestine without perforation or abscess without bleeding K57.30 and Other hemorrhoids K64.8 Assessments Encounter Date Diagnosis (ICD Code) Assessment Notes Treatment Notes Treatment Clinical Notes Section Notes 02/06/2024 Encounter for screening colonoscopy (ICD-10 - Z12.11) 02/06/2024 Colon polyps (ICD-10 - K63.5) 02/06/2024 Diverticulosis of large intestine without perforation or abscess without bleeding (ICD-10 - K57.30) 02/06/2024 Other hemorrhoids (ICD-10 - K64.8) Plan Of Treatment No Information Progress Notes * DAHIANA SHEARERKEELYDOB:1950 (75 yo F)Acc No.[id number]:02/06/2024 COLON WITH MAC Patient: EDILBERTO DAVEY Provider: Jerad Arthur MD :1950 A ge:73 Y S ex:Female Date:02/06/2024 Address:[address] [place], [place] [id number] Pcp:Keely Wilburn MD Subjective: * Chief Complaints: * 1 . Screening colon. * Medical History: Objective: * Vitals: Assessment: * Assessment: 1. E ncounter for screening colonoscopy - Z12.11 (Primary) 2 . C olon polyps - K63.5 3 . D iverticulosis of large intestine without perforation or abscess without bleeding - K57.30 4 . O ther hemorrhoids - K64.8 Plan: * Treatment: * Procedure Codes: 4 5385 LESION REMOVAL COLONOSCOPY, Modifiers: PT , 0529F INTRVL 3+YRS PTS CLNSCP DOCD, Modifiers: 8P , 0528F RCMND FLW-UP 10 YRS DOCD, Modifiers: 1P * * The named appointment provid er may or may not be the originator of this progress note, and it is not deemed complete until electronically signed by the appointment provider. Sign off status: Pending * Provider: Jerad Arthur MD Date: 0 02/06/2024 Generated for Ashley becerra/Stewart/Maciitting on: 0 06/30/2025 09:15 AM EDT
[2025-06-30 08:33] VITALS: BP 120/68; PULSE 71; O2SAT 97; BMI 55.5
--- NOTE | 2025-06-30 08:33 | A.OFFVIS_ITS ---
Vital Signs 06/30/25 08:33 Height 4 ft 1 in Weight 189 lb 9.561 oz BMI 55.5 BP 120/68 Blood Pressure Location Lt brachial Position Sitting Pulse 71 Pulse Source Pulse Oximeter Pulse Oximetry (%) 97 Oxygen Delivery Method Room Air Intake Visit Reasons: T2DM Intake Note: Patient present today to follow up on Type 2 Diabetes Mellitus. Last seen by Erin Mccall on 04/07/2025. Patient receives [facility] Kelly 3 plus supplies through: [facility] Last Diabetic Eye exam: February 19, 2025 Last Podiatry Visit: March 31, 2025 Dr. De Jesus HgA1C: 6.9%, 06/30/2025 Random Glucose: 113 mg/dL Engraved Roller Inspector Required: Yes Engraved Roller Inspector Language: Housing And Residence Life Director Services: Engraved Roller Inspector Offered & Declined Accompanied by: Daughter Allergies penicillin G (PENICILLIN G) Allergy (Mild, Verified 06/30/25 08:41) PRURITIS amoxicillin Allergy (Unknown, Verified 06/30/25 08:41) rash, itching aspirin Adverse Reaction (Verified 06/30/25 08:41) Hives Medication List - Last Reconciled 06/30/25 by AMERICA Matt acetaminophen 500 mg PO DAILY PRN albuterol sulfate 90 mcg/actuation (ProAir HFA) 2 puffs inhalation Q6H PRN allopurinol 100 mg PO DAILY Held on 11/22/23. Instructions: Doctor's Order amlodipine 5 mg PO DAILY benazepril 20 mg PO DAILY blood sugar diagnostic (Resort GemsTouch Ultra Test strips) USE 1 TEST STRIP 3 TIMES DAILY brimonidine 0.2% 1 drp ophthalmic-Right BID calcium carbonate (Antacid Extra-Strength) tabs PO calcium carbonate-vitamin D3 600 mg-10 mcg (400 unit) (Calcium 600 with Vitamin D3) 1 tab PO BID cholecalciferol (vitamin D3) 1,250 mcg PO QWEEK colchicine 0.6 mg PO DAILY [comp.stocking,thigh,long,x-lrg ] diclofenac sodium 1% 2 grams topical BID PRN docusate sodium 100 mg PO BID PRN FreeStyle Kelly 3 Plus Sensor (blood-glucose sensor) every 15 days NS FreeStyle Kelly 3 [place] (blood-glucose,last inserter,cont) As directed for use with sensors NS gabapentin 100 mg PO ONCE glucose (Dex4 Glucose Quick Dissolve) 16 grams (4 x 4 gram) PO Q15M PRN insulin glargine (Lantus Solostar U-100 Insulin) 14 units (0.14 mL) subcut DAILY 30 days ketorolac 0.5% 1 drp ophthalmic (eye) DAILY lancets (OneTouch Delica Lancets) 3 times a day meclizine 25 mg PO TID omeprazole 20 mg PO QAM pen needle,diabetic dual safty USE WITH INSULIN TWICE DAILY rosuvastatin 20 mg PO DAILY sertraline 50 mg PO Q24H timolol maleate 0.5% 1 drp ophthalmic (eye) BID tirzepatide (Mounjaro) 2.5 mg (0.5 mL) subcut QWEEK HPI Comments Details: This is a 75-year-old female with a past medical history of type 2 diabetes, hypertension, hyperlipidemia, schizophrenia, Chiari malformation 1, endometrial cancer status post hysterectomy presenting for diabetic management. This is my 1st visit with the patient. She last saw my colleague on 04/07/2025. She is here with her daughter, Ashlyn. Engraved Roller Inspector declined. She was initially diagnosed with type 2 diabetes in 1991. She has a family history of type 2 diabetes in her brother and son. When her hemoglobin A1c is 6.9% 06/30/2025. I reviewed her CGM download for the past 14 days. CGM active 74% Average glucose 122 G AZ 6.2% Glucose variability 23.2% Very high 0% High 3% Target range 97% Hypoglycemia 0% Throughout 24 hours her glucose readings remain in target range. Current regimen: Trulicity 1.5 mg weekly and Lantus 14 units every morning. They want to switch to a different GLP 1 to promote weight loss. BMI is 55.5. Trulicity does not help with her weight loss. She has juice occasionally, but she avoids candies, soda, high carb dishes. Past medication: Metformin which was stopped due to diminished GFR. Complications: Nephropathy on TALI inhibitor. She sees Podiatry every 3 months. She has annual eye exams. Last eye exam was February 2025. She has hyperlipidemia treated with rosuvastatin. ROS: Constitutional: No unexplained weight loss, fever, chills Eyes: No vision changes, blurry vision, double vision Respiratory: No shortness of breath Cardiovascular: No chest pain Genitourinary: No dysuria, hematuria, urinary frequency. Neurologic: No numbness or tingling in the extremities. Endocrine: No cold or heat intolerance. No polyuria or polydipsia. Physical exam: Constitutional: Alert, in no distress. EyesL Right eyelid ptosis (baseline since CVA 35 years ago) Neck: Supple, Full range of motion. No lymphadenopathy. No palpable thyroid masses. Respiratory: Clear to auscultation. Cardiovascular: S1 S2 regular. No murmurs. Extremities: Warm and well perfused. No clubbing, cyanosis or edema. 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 Pneumonia due to COVID-19 virus Postmenopausal bleeding Osteopenia Obesity Microalbuminuria Medial epicondylitis Lateral epicondylitis of right elbow Injury of face Edema, lower extremity DJD of shoulder Chronic right shoulder pain Cellulitis, toe Arthritis of knee Abnormal gait Asthma Anemia Stroke Cataract of both eyes CKD (chronic kidney disease) Vitamin D deficiency HLD (hyperlipidemia) HTN (hypertension) T2DM (type 2 diabetes mellitus) Diabetes Surgical History H/O: hysterectomy Hx of colonoscopy History of temporal artery biopsy Hx of elbow surgery History of right shoulder fracture Family History Father No problems noted. Mother No problems noted. Daughter Arthritis Daughter Arthritis Daughter Arthritis Social History Household Members: Children Housing: Apartment Are you a primary critical care nurse specialist to a significant other at home: No Do you presently have visiting nurse or other home services: Yes Alcohol intake: never Patient Tobacco Use Status: Never used Tobacco service: No Current occupational status: disabled Physical Exam Vital Signs: Last Vital Signs Pulse 71 06/30/25 08:33 BP 120/68 06/30/25 08:33 Pulse Ox 97 06/30/25 08:33 Oxygen Delivery Method Room Air 06/30/25 08:33 BMI result Body Mass Index 55.5 Office Procedures Glucose Monitoring Details Details: See [facility] [address] - Glucose monitoring, continuous-physician I&R Procedure code (CPT) selection complete Results AMB Hemoglobin A1c AMB Hemoglobin A1c 6.9 % Last Edit by MARNIE Galeano on 06/30/25 08:46 Results Reviewed Results Reviewed: Laboratory Tests 08/22/24 04/21/25 12:30 07:26 Plt Count 221 Creatinine 1.01 Estimated GFR 53 AST 21 ALT 13 25-OH Vitamin D Total 48.8 Urine Creatinine 118.07 Urine Microalbumin 85.0 Microalb/Creat Ratio 71.9 H Assessment & Plan Assessment & Plan (1) Controlled type 2 diabetes mellitus with renal manifestation: Code(s): E11.29 - Type 2 diabetes mellitus with other diabetic kidney complication Category: Medical (2) Class 3 obesity: Code(s): E66.813 - Obesity, class 3 Category: Medical Plan In summary this is a 75-year-old female with controlled type 2 diabetes but no weight loss on current GLP 1. She has a additional comorbidities of obesity including hypertension, hyperlipidemia and osteoarthritis. It is medically necessary to switch to Mounjaro. We reviewed contraindications, side effects and administration. Start Mounjaro 2.5 mg once weekly one week after last dose of Trulicity and then stop Trulicity. Continue Lantus 14 units daily. If you experience low blood sugar (under 70), treat this by eating a chewable fruit candy like skittles or jelly beans (about 8 pieces), 4 ounces (1/2 cup) of fruit juice (not diet), 1 tablespoon of honey or 4 glucose tablets. If your blood sugar is under 50, take double the amount of one of the above. Recheck your blood sugar in 15 minutes. Diabetic diet reviewed. Follow up in 4 weeks for diabetic medication review. Orders: Orders AMB Hemoglobin A1c Today E11.65 - Type 2 diabetes mellitus with hyperglycemia, Z79.4 - terminal manager (current) use of insulin AMB Glucose Monitoring Today E11.9 - Type 2 diabetes mellitus without complications Medications: New tirzepatide (Mounjaro) for 4 weeks 2.5 mg (0.5 mL) subcut QWEEK 2 mL 0RF glucose (Dex4 Glucose Quick Dissolve) until symptoms of low blood sugar are controlled 16 grams (4 x 4 gram) PO Q15M PRN 30 tabs 3RF hypoglycemia Discontinued dulaglutide (Trulicity) Discontinued Reason: Doctor's Order 1.5 mg (0.5 mL) subcut QWEEK 28 days 2 mL 11RF Patient Instructions: Start Mounjaro 2.5 mg once weekly one week after last dose of Trulicity and then stop Trulicity. Continue Lantus 14 units daily. If you experience low blood sugar (under 70), treat this by eating a chewable fruit candy like skittles or jelly beans (about 8 pieces), 4 ounces (1/2 cup) of fruit juice (not diet), 1 tablespoon of honey or 4 glucose tablets. If your blood sugar is under 50, take double the amount of one of the above. Recheck your blood sugar in 15 minutes. Coding Level of Care Code Est Pt Level 4 (36382) Diagnoses Controlled type 2 diabetes mellitus with renal manifestation E11.29 Class 3 obesity E66.813 CPT Codes Details - CPT: 39435 - Glucose monitoring, continuous-physician I&R ([id number])
[2025-06-30 08:41] LABS: Glucose, Whole Blood 113 mg/dL (60-115)
--- OUTSIDE RECORDS SUMMARY | 2025-06-30 09:15 | XMS_ITS | Encounter Summary ---
Author Organization [employer] Address [address] [facility] [facility] [address] [place] [address] Care Team Providers Care Indian Nanny Name Role Phone Keely Wilburn MD Primary Care Provider + Encounter Details Date Type Department Care Team (Late st Contact Info) Description 01/17/2023 Abstract [facility] [address], [place] [phone] Keely Wilburn MD [address], [place] [phone] Social History Tobacco Use Types Packs/Day Years [...] as of this encounter Plan of Treatment Not on file documented as of this encounter Visit Diagnoses Not on filedocumented in this encounter Care Teams Indian Nanny Relationship Specialty Start Date End Date Keely Wilburn MD [address] [place] [address] PCP - General Family Medicine 10/27/19 [place] 08/06/24 documented as of this encounter
--- OUTSIDE RECORDS SUMMARY | 2025-06-30 09:15 | XMS_ITS ---
Author Name Sherry Lucio NP Address [address] [place] [address] Phone [phone] [facility] Care Team Providers Care Precinct Commanding Officer Name Role Phone Sherry Lucio Unavailable [phone] Reason for Referral Not Available Allergies, adverse [...] No Data Available BD AUTOSHIELD DUO NDL [id number] USE WITH INSULIN TWICE DAILY 2022-09-05 No Data Meseret ilable Benazepril 20 mg Tab TAKE 1 TABLET (20 M G) BY MOUTH IN THE MORNING. DC BENAZEPRIL/HCTZ 2022-11-16 No Data Available Lantus SoloStar 100 UNIT/ML Solution Pen-injector INJECT 18 UNITS SUBCUTANEOUSLY ONCE DAILY 2023-05-31 No Data Available amLODIPine Besylate 10 mg Tab TAKE 1/2 TABLET BY MOUTH DAILY 2022-08-24 No Data Available Gxwjiuqebb-QASK-Alkcxhvf 50/325/40 mg Tab TAKE 1 TABLET BY [...] No Data Available BD AUTOSHIELD DUO NDL [id number] USE WITH INSULIN TWICE DAILY 2023-12-25 No [...] List Problem Status Onset Date Resolved Date Synopsis Osteopenia of multiple sites Active 2023-12-04 N/A Check Vit D leve ls HTN (hypertension) Active 2023-12-04 N/A Contro lled. Compliant w/medsContinue benazepril same dose.Counseled re low salt diet/increase moderate physical activity.Check home BP BIW and prn CP/KHOURY/DOENon smoking patient. Morbid obesity due to excess calories Active 2023-12-16 N/A exercise as tole rated followed and monitored by pcp Benign paroxysmal positional vertigo due to bilateral vestibular disorder Active 2023-12-04 N/A Use meclizine pr nCounseled to check fgstk at times of sxs, remain hydrated and to have small and fractioned meals. per OCfollowed and monitored by pcp Arthritis associated with diabetes Active 2023-12-04 N/A RO DJD spineOrde r XraysRecommended acupunctureTake tylenol prn per OCfollowed AND MONITORED BY PCP Urinary incontinence Active 2023-12-16 N/A foll owed and monitored by pvcp Major depressive disorder, recurrent, moderate Active 2023-12-16 N/A rx: sertrali ne followed and monitored by pcp and psyxh Rheumatoid factor positive Active 2023-12-16 N/A followed and monitored by pcp Hypercholesteremia Active 2023-12-04 N/A stATIN followed and monitored by pcp GERD (gastroesophageal reflux disease) Active 2023-12-16 N/A RX: OMEPRAZOLE f ollowed and monitored by pcp Type 2 diabetes mellitus with stage 3b chronic kidney disease, with long-term current use of insulin, unspecified whether stage 3a or 3b CKD Active 2023-12-16 N/A eGFR (non-): 39 mL/min, HbA1c: 6.4 %, Yesfollowed and monitored by pcp Stage 3b chronic kidney disease due to diabetes mellitus Active 2023-12-16 N/A GFR stableLDL is at goalNeeds to have tighter control of HTNContinue same medication for now and fu with me in 6 weeks.FU with renalper OCfollowed and monitored by pcp and nephro Vascular disease Active 2023-12-16 N/A BL LE.As ymptomatic today, mainly co leg edemaCounseled to wear compression stockings, reconsult prnfollowed and monitored by pcp and cardio Other problems related to medical facilities and other health care Active 2024-01-17 N/A Call CB if sob , fever, wheezing Severe persistent asthma, uncomplicatedChronic bronchitis-Allergic bronchitis with acute exacerbation Active 2023-12-04 N/A CONTINGENCY PLANMember to call for the following symptoms: [...] dayFOLLOWED AND MONITORED BY PCP AND PULM COVID Active 2024-01-17 N/A 01/17/24: Summar y of acute complaint: Member has been feeling [...] and one episode of vomiting this am. [facility] tested member this am and she [...] health RN. Continue to push pedialite and lease picker zofran. f/u sched 01/21/24-call CB 04/06 for change in medical status 01/21/24: COVID negative today; no more diarrhea or vomiting. very mild chest congestion (getting better every day) no wheezing today. feeling better today. BS are elevated (has had pred traper and drinking pedialyte for diarrhea). continue to drink water/sugar free fluids. Can stop pedialyte now; continue to monitor sugars. Other problems related to medical facilities and other health care Active 2024-01-22 N/A When member to call: 1. If bp is elevated sbp>150; dbp>90 or symptomatic-h/a, dizziness, cp, sob. 2. if there is a fall 3. if BS >300 or BS<90 or symptomatic; i.e., dizzy, off balance , shaky, general weakness. 4. if UTI symptoms arise-urinary frequency, dysuria, low abd pain. 5. if pain in knees increases/ or joint pain increased Please remember to [facility]. [facility] with [facility] as needed for any acute or disease education needs that may arise 04/06.what should be done when the member calls: see each individual diagnosis for contingency plan Encounters Encounters Type Facility Date of Service Diagnosis/Co mplaint New patient,40-59min; chronic exacerbation, 2 stable chronic or 1 acute illness add add modifier 95 for video (do not use for phone, instead use 98241-92) [facility] Severe persistent asthma, uncomplicatedBenign paroxysmal vertigo, [...] (do not use for phone, instead use 13878-85) [facility] New patient,40-59min; chronic exacerbation, 2 stable chronic or 1 acute illness add add modifier 95 for video (do not use for phone, instead use 38405-37) [facility] New patient,40-59min; chronic exacerbation, 2 stable chronic or 1 acute illness add add modifier 95 for video (do not use for phone, instead use 81541-42) [facility] [place]23 New patient,40-59min; chronic exacerbation, 2 stable chronic or 1 acute illness add add modifier 95 for video (do not use for phone, instead use 54299-48) [facility] [place]2023 New patient,40-59min; chronic exacerbation, 2 stable chronic or 1 acute illness add add modifier 95 for video (do not use for phone, instead use 18840-06) [facility] [place]/2023 New patient,40-59min; chronic exacerbation, 2 stable chronic or 1 acute illness add add modifier 95 for video (do not use for phone, instead use 97855-88) [facility] [place]2023 New patient,40-59min; chronic exacerbation, 2 stable chronic or 1 acute illness add add modifier 95 for video (do not use for phone, instead use 19464-17) [facility] [place]/2023 New patient,40-59min; chronic exacerbation, 2 stable chronic or 1 acute illness add add modifier 95 for video (do not use for phone, instead use 45604-26) [facility] [place] 12/[place]/2023 New patient,40-59min; chronic exacerbation, 2 stable chronic or 1 acute illness add add modifier 95 for video (do not use for phone, instead use 94213-07) [facility] [place] 12/[place]/2023 No Data Available [facility] [place] 01/15/2024 Severe persistent asthma, uncomplicatedUnspecified chronic bronchitis No Data Available [facility] [place] 01/[place]/2024 No Data Available [facility] [place] 01/17/2024 Severe persistent asthma, uncomplicatedUnspecified chronic bronchitisBenign [...] and other health care No Data Available [facility] [place] 01/17/2024 No Data Available [facility] [place] 01/17/2024 No Data Available [facility] [place] 01/17/2024 No Data Available [facility] [place] 01/18/2024 Severe persistent asthma, uncomplicatedUnspecified chronic bronchitisUnspecified [...] and other health care No Data Available [facility] [place] 01/18/2024 No Data Available [facility] [place] 01/18/2024 No Data Available [facility] [place] 01/18/2024 No Data Available [facility] [place] 01/21/2024 Severe persistent asthma, uncomplicatedUnspecified chronic bronchitisUnspecified [...] and other health care No Data Available [facility] [place] 01/21/2024 Vital Signs Date of Collection Vitals [...] tive Time Current Smoking Status Never smoker 2025-06-12 7 Sex Female History of Procedures Procedures Service Procedure code Service date Servicing provider Phone# New patient,40-59min; chronic exacerbation, 2 stable chronic or 1 acute illness add add modifier 95 for video (do not use for phone, instead use 73076-63) 88913 2023-12-04 No Data Available No Data Availa [...] Available Advance care planning discussed and documented advance care plan or surrogate decision-maker was documented in the medical record. (1123F) 1123F 2023-12-04 No Data Available No Data Availa ble SBP < 130 (3074F) 3074F 2023-12-04 No Data Available No Data Available DBP <80 (3078F) 3078F 2023-12-04 No Data Available No Data Available Functional Status Assessed (1170F) 1170F 2023-12-04 No Data Available No Data Avail able No Data Available 32901 2024-01-15 No Data Available No Data Available Medication List Documented (1159F) 1159F 2024-01-15 No Data Available No Data Meseret ilable No Data Available 2024-01-17 No Data Available No Data Available Medication List Documented (1159F) 1159F 2024-01-17 No Data Available No Data Meseret ilable Functional Status Assessed (1170F) 1170F 2024-01-17 No Data Available No Data Avail able Most recent A1c (HbA1c) or GMI level <7% (3044F) 3044F 2024-01-17 No Data Available No Data Availa ble No Data Available [id number] 2024-01-18 No Data Available No Data Available SBP 130-139 (3075F) 3075F 2024-01-18 No Data Availabl e No Data Available DBP <80 (3078F) 3078F 2024-01-18 No Data Available No Data Available Functional Status Assessed (1170F) 1170F 2024-01-18 No Data Available No Data Avail able No Data Available [id number] 2024-01-21 No Data Available No Data Available [...] modifier 95Advance care planning discussed and documented advance care plan or surrogate decision-maker was documented in the medical record. (1123F)Continue to see PCP. Follow-up with [facility] as [...] dayFOLLOWED AND MONITORED BY PCP AND PULMUse elizalizine prnCounseled to check fgstk at times of [...] and one episode of vomiting this am. [facility] tested member this am and she [...] dayFOLLOWED AND MONITORED BY PCP AND PULMUse elizalizine prnCounseled to check fgstk at times of [...] and one episode of vomiting this am. [facility] tested member this am and she [...] health RN. Continue to push pedialite and lease picker zofran. f/u sched 01/21/24-call CB 04/06 [...] and one episode of vomiting this am. [facility] tested member this am and she [...] health RN. Continue to push pedialite and lease picker zofran. f/u sched 01/21/24-call CB 04/06 [...]
--- OUTSIDE RECORDS SUMMARY | 2025-06-30 09:15 | XMS_ITS | Clinical Summary ---
Author Organization [facility], Address [address] [place] [address] [place] [address] Phone Care Team Providers Care Client Delivery Specialist Name Role Phone Keely Wilburn MD Primary Care Provider + [phone] Allergies Active Allergy Reactions Criticality Noted Date [...] NEEDED 0 Active Lancets (ONETOUCH DELICA PLUS [id number]) misc USE SEG N LO INDICADO PAN [...] diabetic nephropat hy 12/19/2019 Hypertension 12/19/2019 Immunizations Immunization Administration Dates Next Due Hepatitis [...] Visit [facility], [address] [place] [address] Terrance Garcia MD [address] [place] [address] Health Maintenance Due Date Last Done Comments Diabetes: Ophthalmology Exam 12/19/2019 Diabetes: Pedal Pulse Checked 12/19/2019 Diabetes: Sensory Foot Exam 12/19/2019 Diabetes: Visual Foot Exam 12/19/2019 Diabetes: Hemoglobin A1C 04/17/2025 025, 05/16/2024, 01/24/2023, Additional history exists Influenza Vaccine (#1) 2025 4, 09/01/2020, 10/27/2019, Additional history exists Hepatitis B Vaccine Aged Out 05/21/2017, 7 No longer eligible based on patient's age to complete this topic Pneumococcal Vaccine: 50+ Years Completed 05/31/2023, 08/17/2015, 07/04/2008, Additional history exists Pneumococcal Vaccine: Peds (0 to 5 Years) and At-Risk Patients (6 to 49 Years) Discontinued 05/31/2023, 08/17/2015, 07/04/2008, Additional history exists Procedures Procedure Name Priority Date/Time Associated Diagnosis Comments HEMOGLOBIN A1C Routine 09/28/2022 2:01 PM EST Type 2 diabetes mellitus with diabetic nephropathy (HCC) from Last 3 Months or Most Recently Relevant to Health Maintenance Results * (ABNORMAL) Hemoglobin A1c (09/28/2022 2:01 PM EST) Hemoglobin A1C 6.8(H) (4.0-5.6) % [facility] Comment: MONITORING: In known diabetic patients, hemoglobin A1c targets should be discussed with health care provider. DIAGNOSTIC USE: The [place] [employer] (ADA) and the World Health [...] Supplement 1 Testing performed or reported by [facility] [employer], a Service of [facility], [address] [place] [id number] Luis Andino MD, [employer] [facility]# [id number] Blood specimen (specimen) Venous blood / Unknown 09/28/2022 2:01 PM EST 09/28/2022 2:03 PM EST us Terrance Garcia MD LAB BLOOD ORDERABLES Final Re sult [facility] from Last 3 Months or Most Recently Relevant to Health [place] [address] [place] [address] [facility] Care Dual SNP ([id number]) [place] FERNANDEZ [id number] Care Teams Client Delivery Specialist Relationship Specialty Start Date End Date Keely Wilburn MD [address] [place] [id number] PCP - General Internal Medicine 02/11/20
--- OUTSIDE RECORDS SUMMARY | 2025-06-30 09:16 | XMS_ITS | Clinical Summary ---
Author Organization [address] [place] [address] Address [address] [place] [address] Phone Care Team Providers Care Security System Sales Consultant Name Role Phone Keely Wilburn MD Primary Care Provider [phone] Allergies Active Allergy Reactions Criticality Noted Date [...] DR capsule 1 Active DIABETIC SUPPLIES, [place]. [facility] ONE TOUCH BASIC STRIPS Active lancets lancets [...] 10/03/2024 Asthma 10/03/2024 Diabetes mellitus type 2, un complicated (CMS/[facility] V24, CMS/HCC V28) 10/03/2024 Hypertension 10/03/2024 Closed fracture of lower end of humerus 08/11/20 10 Overview (10/03/2024): IMO update Encounters Date Type Department Care Team Description 03/31/2025 9:30 AM EDT Office Visit Orthopedic Surgery - [address] [address] Cr Bolton DPM Controlled type 2 diabetes with neuropathy (CMS/HCC V24, CMS/HCC V28) (Primary Dx); PVD (peripheral vascular disease) (CMS/[facility] V24); Arthritis of both feet; Xerosis cutis; Dermatophytosis, nail from Last 3 Months Surgical History Surgery Date Site/Laterality Comments OTHER SURGICAL HISTORY PROCEDURE: DENIES PREVIOUS SURGERY OTHER SURGICAL HISTORY PROCEDURE: [place] LIG/TRNSXJ FLP TUBE ABDL/VAG APPR UNI/BI Medical History Medical History Date Comments Asthma DX:Asthma High blood pressure DX:High bloo d pressure Anemia DX:Anemia Anxiety state DX:Anxiety state Hypertension DX:Hypertension Hypertension DX:Hypertension Diabetes mellitus type 2, un complicated (CMS/HCC V24, CMS/HCC V28) DX:Diabetes mellitus type 2 , uncomplicated ([facility]) Esophageal reflux DX:Esophageal reflux Hyperlipidemia DX:Hyperlipidemi a [...] - - Weight 86.2 kg (190 lb) 03/31/2025 9:39 AM EDT Height 155.2 cm (5' 1.1 ) 03/31/2025 9:39 AM EDT Body Mass Index 35.78 03/31/2025 9:39 AM EDT Plan of Treatment Upcoming Encounters Date Type Department Care Team (Late st Contact Info) Description 07/02/2025 9:00 AM EDT Office Visit Orthopedic Surgery - [place] [address] [phone] Cr Bolton, LORE[place] [address] [address] Health Maintenance Due Date Last Done Comments Diabetes: Annual Foot Exam 1960 Diabetes: Annual Retina Eye Exam 1960 Hepatitis B Vaccines (3 of 3 - 19+ 3-dose series) 10/17/2017 05/21/2017, 04/17/2017 Cholesterol Screening (Lipid Panel) 10/15/2022 Falls Risk Assessment 10/15/2022 Medicare Annual Wellness Visit 10/15/2022 Osteoporosis Screening (Bone Density Screening) 10/15/2022 Social Influencers of Health Screening 10/15/2022 RSV Immunization Adult Patients (1 - 1-dose 75+ series) 2023 COVID-19 Vaccine (2023- season) 2024 03/29/2022, 09/20/2021, 08/19/2021 Depression Screening 11/12/2024 Influenza Vaccine (#1) 2025 , 08/24/2022, 11/18/2021, Additional history exists Diabetes: Blood Sugar Control Test (HGBA1C) 07/18/2025 01/15/2025, 10/14/2024, 09/28/2022, Additional history exists Diabetes: Annual GFR (Glomerular Filtration Rate) 12/19/2025 12/19/2024, 03/24/2022 Hypertension/CHF/CAD Annual BMP Blood Test 12/19/2025 12/19/2024, 03/24/2022 Diabetes: Annual Urine Albumin-Creatinine Ratio (uACR) 02/14/2026 02/14/2025 DTaP,Tdap,and Td Vaccines (5 - Td or Tdap) 06/07/2032 06/07/2022, 04/17/2017, 06/09/2009, Additional history exists MMR Vaccines Aged Out 05/18/1998 No longer eligi ble based on patient's age to complete this topic Colorectal Cancer Screening: Colonoscopy Discontinued 09/12/2018 Pneumococcal Vaccine: 50+ Years Completed 05/31/2023, 08/17/2015, 07/04/2008, Additional history exists Zoster Vaccines Completed 05/31/2023, 11/15/2022 Hepatitis C Screening Completed 05/16/2024 HIB Vaccines Aged Out No longer eligi [...] age to complete this topic Meningococcal B Vaccine Aged Out No l onger eligible based on patient's age to complete [...] MAINTENANCE Final Result * Colonoscopy (09/12/2018) Pathologist [facility] Colonoscopy no interpretation , abstracted Anatomical Region Laterality Modality Other [facility] Provider HEALTH MAINTENANCE Final Result * (ABNORMAL) Hemoglobin A1c (07/12/2018) [facility] Hemoglobin A1C 6.5(A) 4.0 - 6.0 % Blood Venous blood specimen / Unknown Historical Provider LAB BLOOD ORDERABLES Meka l Result from Last 3 Months or Most Recently Relevant to Health Maintenance Insurance [facility] MEDICARE Member Subscriber Plan / Payer (Ef fective 2024-Present) Name:Adrianne Landeros Relation to Subscriber:Self Name:Adrianne Landeros Payer ID:[id number] Group ID:[id number] Type:Not on file Address: [facility] [address] [place] [id number] Advance Directives Documents on File Type Date Recorded Patient Whiskey Filterer Expl anation Health Care Decision (hx) 04/22/2018 [...] (hx) 04/22/2018 AD BECKWITH DIRECTIVE Care Teams Security System Sales Consultant Relationship Specialty Start Date End Date Keely Wilburn MD [address] [place] [phone] PCP - General 03/01/22
== END 2025-06-30 09:09 | disposition home or self-care (01) ==
LOC: HO.ENCR 08:32
PROVIDERS: PCP Internal Medicine; Visit Provider Physician Assistant Medical
DX: E11.29 Type 2 diabetes mellitus with other diabetic kidney complication (principal); E66.813 Obesity, class 3; E11.65 Type 2 diabetes mellitus with hyperglycemia; Z79.4 Long term (current) use of insulin

== ENCOUNTER → 2025-06-30 08:32 | Outpatient (BNVA) | payer OTHER, SELFPAY | PROVIDERS: PCP Internal Medicine; Visit Provider Physician Assistant Medical | DX: E11.65 Type 2 diabetes mellitus with hyperglycemia (principal); E66.813 Obesity, class 3; Z79.4 Long term (current) use of insulin | CPT/HCPCS: 82947; 83036; 99212 ==

== ENCOUNTER 2025-07-28 08:38 | Outpatient (AMB) | payer OTHER, SELFPAY ==
--- OUTSIDE RECORDS SUMMARY | 2024-02-06 03:30 | XMS_ITS ---
Author Organization [facility] Address [address] [place] [id number] Care Team Providers Care Directional Survey Drafter Name Role Phone Keely Wilburn MD Primary Care Provider Unavail able Rod Arthur Unavailable [phone] Mathew Boss Unavailable Unavailable REASON FOR VISIT screening colon Encounters Encounter Location Date Provider Diagnosis [facility] Outpatient [address] [place] [id number] 02/06/2024 Rod Arthur Encounter for scre ening [...] Notes * DAHIANA SHEARERKEELYDOB:1950 (75 yo F)Acc No.[id number]:02/06/2024 COLON WITH MAC Patient: EDILBERTO DAVEY Provider: Jerad Arthur MD :1950 A ge:73 Y S ex:Female Date:02/06/2024 Address:[address] [place], [place] [id number] Pcp:Keely Wilburn MD Subjective: * Chief Complaints: [...] 02/06/2024 Generated for Ashley becerra/Stewart/Maciitting on: 0 07/28/2025 10:24 AM EDT
--- NOTE | 2025-07-28 08:41 | MHC.OFFVIS ---
Vital Signs 07/28/25 08:45 Height 4 ft 11 in Weight 193 lb 12.581 oz BMI 39.1 BP 140/70 H Blood Pressure Location Rt brachial Position Sitting Pulse 65 Pulse Source Pulse Oximeter Pulse Oximetry (%) 95 Oxygen Delivery Method Room Air Intake Visit Reasons: Type II diabetes Intake Note: Patient present today to follow up on Type 2 Diabetes Mellitus. Patient receives Freestyle Kelly 3 plus supplies through: [facility] Last Diabetic Eye exam: February 19, 2025 Last Podiatry Visit: March 31, 2025 Dr. De Jesus Random Glucose: 144 mg/dl HgA1C: 6.9%, 06/30/2025 Pot Fisher Required: Yes Pot Fisher Language: Aviation Electronic Warfare Operator Services: Pot Fisher Offered & Declined Pot Fisher Name: Daughter Accompanied by: Daughter Allergies penicillin G (PENICILLIN G) Allergy (Mild, Verified 07/28/25 08:45) PRURITIS amoxicillin Allergy (Unknown, Verified 07/28/25 08:45) rash, itching aspirin Adverse Reaction (Verified 07/28/25 08:45) Hives Medication List - Last Reconciled 07/28/25 by AMERICA Matt acetaminophen 500 mg PO DAILY PRN albuterol sulfate 90 mcg/actuation (ProAir HFA) 2 puffs inhalation Q6H PRN allopurinol 100 mg PO DAILY Held on 11/22/23. Instructions: Doctor's Order amlodipine 5 mg PO DAILY benazepril 20 mg PO DAILY blood sugar diagnostic (WeGushTouch Ultra Test strips) USE 1 TEST STRIP 3 TIMES DAILY brimonidine 0.2% 1 drp ophthalmic-Right BID calcium carbonate (Antacid Extra-Strength) tabs PO calcium carbonate-vitamin D3 600 mg-10 mcg (400 unit) (Calcium 600 with Vitamin D3) 1 tab PO BID cholecalciferol (vitamin D3) 1,250 mcg PO QWEEK colchicine 0.6 mg PO DAILY [comp.stocking,thigh,long,x-lrg ] diclofenac sodium 1% 2 grams topical BID PRN docusate sodium 100 mg PO BID PRN FreeStyle Kelly 3 Plus Sensor (blood-glucose sensor) every 15 days NS FreeStyle Kelly 3 Preston (blood-glucose,clinical social worker,cont) As directed for use with sensors NS gabapentin 100 mg PO ONCE glucose (Dex4 Glucose Quick Dissolve) 16 grams (4 x 4 gram) PO Q15M PRN ketorolac 0.5% 1 drp ophthalmic (eye) DAILY lancets (OneTouch Delica Lancets) 3 times a day meclizine 25 mg PO TID omeprazole 20 mg PO QAM pen needle,diabetic dual safty USE WITH INSULIN TWICE DAILY rosuvastatin 20 mg PO DAILY sertraline 50 mg PO Q24H timolol maleate 0.5% 1 drp ophthalmic (eye) BID tirzepatide (Mounjaro) 5 mg (0.5 mL) subcut QWEEK HPI Comments Details: This is a 75-year-old female with a past medical history of type 2 diabetes, hypertension, hyperlipidemia, schizophrenia, Chiari malformation 1, endometrial cancer status post hysterectomy presenting for diabetic management. She is here with her daughter, Ashlyn. Pot Fisher declined. She was initially diagnosed with type 2 diabetes in 1991. She has a family history of type 2 diabetes in her brother and son. When her hemoglobin A1c is 6.9% 06/30/2025. Reviewed [employer] 3 data July 15 through 07/28/2025 CGM active 74% Average glucose 120 G WA 6.2% Very high 0% High 5% Target range 93% Low 2% Very low 0% She has a pattern of normal blood sugars during the day and evening and occasional hypoglycemia overnight and rn community health. She experiences symptoms with low blood sugar including dizziness and weakness. She has not been treating lows at night. Current regimen: Mounjaro 2.5 mg weekly and Lantus 14 units every morning. Past medication: Metformin which was stopped due to diminished GFR. Trulicity was switched to Mounjaro because she did not lose weight with Trulicity. Complications: Nephropathy on TALI inhibitor. She sees Podiatry every 3 months. She has annual eye exams. Last eye exam was February 2025. She has hyperlipidemia treated with rosuvastatin. ROS: Constitutional: No unexplained weight loss, fever, chills Eyes: No vision changes, blurry vision, double vision Respiratory: No shortness of breath Cardiovascular: No chest pain Genitourinary: No dysuria, hematuria, urinary frequency. Neurologic: No numbness or tingling in the extremities. Endocrine: No cold or heat intolerance. No polyuria or polydipsia. Physical exam: Constitutional: Alert, in no distress. EyesL Right eyelid ptosis (baseline since CVA 35 years ago) Neck: Supple, Full range of motion. No lymphadenopathy. No palpable thyroid masses. Respiratory: Clear to auscultation. Cardiovascular: S1 S2 regular. No murmurs. Extremities: Warm and well perfused. No clubbing, cyanosis or edema. 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 Pneumonia due to COVID-19 virus Postmenopausal bleeding Osteopenia Obesity Microalbuminuria Medial epicondylitis Lateral epicondylitis of right elbow Injury of face Edema, lower extremity DJD of shoulder Chronic right shoulder pain Cellulitis, toe Arthritis of knee Abnormal gait Asthma Anemia Stroke Cataract of both eyes CKD (chronic kidney disease) Vitamin D deficiency HLD (hyperlipidemia) HTN (hypertension) T2DM (type 2 diabetes mellitus) Diabetes Surgical History H/O: hysterectomy Hx of colonoscopy History of temporal artery biopsy Hx of elbow surgery History of right shoulder fracture Family History Father No problems noted. Mother No problems noted. Daughter Arthritis Daughter Arthritis Daughter Arthritis Social History Household Members: Children Housing: Apartment Are you a primary home care and home health aides teacher to a significant other at home: No Do you presently have visiting nurse or other home services: Yes Alcohol intake: never Patient Tobacco Use Status: Never used Tobacco service: No Current occupational status: disabled Physical Exam Vital Signs: BMI result Body Mass Index 39.1 Results Reviewed Results Reviewed: Laboratory Tests 08/22/24 04/21/25 12:30 07:26 Plt Count 221 Creatinine 1.01 Estimated GFR 53 AST 21 ALT 13 25-OH Vitamin D Total 48.8 Urine Creatinine 118.07 Urine Microalbumin 85.0 Microalb/Creat Ratio 71.9 H Assessment & Plan Assessment & Plan (1) Controlled type 2 diabetes mellitus with renal manifestation: Code(s): E11.29 - Type 2 diabetes mellitus with other diabetic kidney complication Category: Medical (2) Class 3 obesity: Code(s): E66.813 - Obesity, class 3 Category: Medical Plan In summary this is a 75-year-old female with controlled type 2 diabetes. She has a additional comorbidities of obesity including hypertension, hyperlipidemia and osteoarthritis. This week reduce Lantus insulin to 5 units nightly. This Sunday stop Mounjaro 2.5 mg and start Mounjaro 5 mg weekly and stop taking Lantus insulin. If you experience low blood sugar, treat this by eating a chewable fruit candy like skittles or jelly beans (about 8 pieces), 4 ounces (1/2 cup) of fruit juice (not diet), 1 tablespoon of honey or 4 glucose tablets. If your blood sugar is under 50, take double the amount of one of the above. They have glucose tablets at home. Recheck your blood sugar in 15 minutes. Diabetic diet reviewed. Follow up in 4 weeks for diabetic medication review. Orders: Orders AMB Glucose Monitoring Today E11.9 - Type 2 diabetes mellitus without complications Medications: New tirzepatide (Mounjaro) 5 mg (0.5 mL) subcut QWEEK 2 mL 0RF Discontinued insulin glargine (Lantus Solostar U-100 Insulin) Discontinued Reason: Doctor's Order 14 units (0.14 mL) subcut DAILY 30 days 6 mL 11RF tirzepatide (Mounjaro) Discontinued Reason: Doctor's Order 2.5 mg (0.5 mL) subcut QWEEK 2 mL 0RF Patient Instructions: This week reduce Lantus insulin to 5 units nightly. This Sunday stop Mounjaro 2.5 mg and start Mounjaro 5 mg weekly and stop taking Lantus insulin. If you experience low blood sugar, treat this by eating a chewable fruit candy like skittles or jelly beans (about 8 pieces), 4 ounces (1/2 cup) of fruit juice (not diet), 1 tablespoon of honey or 4 glucose tablets. If your blood sugar is under 50, take double the amount of one of the above. Recheck your blood sugar in 15 minutes. Esta semana, reduzca la insulina Lantus a 5 unidades por noche. Aubree chris, suspenda Mounjaro 2.5 mg y comience con Mounjaro 5 mg semanalmente, y deje de jack insulina Lantus. Si experimenta un nivel bajo de az?car en la christian, tr?telo comiendo un caramelo masticable de fruta charlotte Skittles o Jelly Beans (aproximadamente 8 unidades), 113 ml (1/2 taza) de jugo de fruta (no light), 1 cucharada de miel o 4 tabletas de glucosa. Si blood nivel de az?car en la christian es inferior a 50, tome el doble de la cantidad de kendall de los medicamentos mencionados. Vuelva a medir blood nivel de az?car en la christian en 15 minutos. 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
[2025-07-28 08:45] VITALS: BP 140/70; PULSE 65; O2SAT 95; BMI 39.1
[2025-07-28 08:54] LABS: Glucose, Whole Blood 144 mg/dL (60-115)
--- OUTSIDE RECORDS SUMMARY | 2025-07-28 10:24 | XMS_ITS | Encounter Summary ---
Author Organization [facility] Address [address] [place] [address] Phone Care Team Providers Care Train Electronic Technician Name Role Phone Keely Wilburn MD Primary Care Provider + [phone] Encounter Details Date Type Department Care Team (Late Contact Info) Description 09/29/2024 Documentation Only [facility] [address] [place] [address] Juju Avila [address] [place] [phone] Social History Tobacco Use Types Packs/Day Years [...] [facility] [address] [place] [address] Terrance Garcia MD [address] [place] [address] [place] [address] documented as of this encounter Visit Diagnoses Not on filedocumented in this encounter Care Teams Train Electronic Technician Relationship Specialty Start Date End Date Keely Wilburn MD [address] [place] [phone] PCP - General Internal Medicine 02/11/20 documented as of this encounter
--- OUTSIDE RECORDS SUMMARY | 2025-07-28 10:24 | XMS_ITS | Encounter Summary ---
Author Organization [facility] [place], Address [address] [place] [address] Phone Care Team Providers Care Certified Surgical First Assistant Name Role Phone Keely Wilburn MD Primary Care Provider + [phone] Encounter Details Date Type Department Care Team (Late Contact Info) Description 09/02/2024 Documentation Only [facility] [address] [place] [address] Jaz Jane [place] [address] [place] [phone] Social History Tobacco Use Types Packs/Day Years [...] [facility] [address] [place] [address] Terrance Garcia MD [address] [place] [address] [place] [address] documented as of this encounter Visit Diagnoses Not on filedocumented in this encounter Care Teams Certified Surgical First Assistant Relationship Specialty Start Date End Date Keely Wilburn MD [address] [place] [address] PCP - General Internal Medicine 02/11/20 documented as of this encounter
--- OUTSIDE RECORDS SUMMARY | 2025-07-28 10:24 | XMS_ITS | Encounter Summary ---
Author Organization [facility] [place], Address [address] [place] [address] Phone Care Team Providers Care Faa Certified Powerplant Mechanic Name Role Phone Keely Wilburn MD Primary Care Provider + [phone] Encounter Details Date Type Department Care Team (Late Contact Info) Description 08/05/2024 Documentation Only [facility] [address] [place] [address] Jaz Jane [place] [address] [place] [phone] Social History Tobacco Use Types Packs/Day Years [...] Visit [facility] [address] [place] [address] Terrance Garcia MD [address] [place] [address] [place] [address] documented as of this encounter Visit Diagnoses Not on filedocumented in this encounter Care Teams Faa Certified Powerplant Mechanic Relationship Specialty Start Date End Date Keely Wilburn MD [address] [place] [address] PCP - General Internal Medicine 02/11/20 documented as of this encounter
--- OUTSIDE RECORDS SUMMARY | 2025-07-28 10:24 | XMS_ITS | Encounter Summary ---
Author Organization [facility] Address [address] [place] [address] Phone Care Team Providers Care Retirement Consultant Name Role Phone Keely Wilburn MD Primary Care Provider + [phone] Encounter Details Date Type Department Care Team (Late Contact Info) Description 03/18/2024 Documentation Only [facility] [address] [place] [address] Juju Avila [address] [place] [phone] Social History Tobacco Use Types Packs/Day Years [...] [facility] [address] [place] [address] Terrance Garcia MD [address] [place] [address] [place] [address] documented as of this encounter Visit Diagnoses Not on filedocumented in this encounter Care Teams Retirement Consultant Relationship Specialty Start Date End Date Keely Wilburn MD [address] [place] [phone] PCP - General Internal Medicine 02/11/20 documented as of this encounter
--- OUTSIDE RECORDS SUMMARY | 2025-07-28 10:24 | XMS_ITS | Encounter Summary ---
Author Organization [facility] Address [address] [place] [address] Phone Care Team Providers Care Adding Machine Mechanic Name Role Phone Keely Wilburn MD Primary Care Provider + [phone] Encounter Details Date Type Department Care Team (Late Contact Info) Description 03/18/2024 Documentation Only [facility] [address] [place] [address] Juju Avila [address] [place] [phone] Social History Tobacco Use Types Packs/Day Years [...] [facility] [address] [place] [place] [address] Terrance Garcia MD [address] [place] [address] [place] [address] documented as of this encounter Visit Diagnoses Not on filedocumented in this encounter Care Teams Adding Machine Mechanic Relationship Specialty Start Date End Date Keely Wilburn MD [address] [place] [phone] PCP - General Internal Medicine 02/11/20 documented as of this encounter
--- OUTSIDE RECORDS SUMMARY | 2025-07-28 10:24 | XMS_ITS | Clinical Summary ---
Author Organization [facility] [place], Address [address] [place] [address] [place] [address] Phone Care Team Providers Care Timber Cutter Name Role Phone Keely Wilburn MD Primary Care Provider + [phone] Allergies Active Allergy Reactions Criticality Noted Date [...] NEEDED 0 Active Lancets (ONETOUCH DELICA PLUS [id number]) misc USE SEG N LO INDICADO PAN [...] Visit [facility] [place], [address] [place] [address] Terrance Garcia MD [address] [place] [address] Health Maintenance [...] PM EST) Hemoglobin A1C 6.8(H) (4.0-5.6) % [facility] Comment: MONITORING: In known diabetic patients, hemoglobin A1c targets should be discussed with health care provider. DIAGNOSTIC USE: The [place] Diabetes Association (ADA) and the World Health [...] Supplement 1 Testing performed or reported by [facility], a Service of [facility], [address] [place] [address] Luis Andino MD, Improvement Analyst [facility]# [id number] Blood specimen (specimen) Venous blood / Unknown 09/28/2022 2:01 PM EST 09/28/2022 2:03 PM EST us Terrance Garcia MD LAB BLOOD ORDERABLES Final Re sult [facility] from Last 3 Months or Most Recently Relevant to Health [place] [address] [facility] Care Dual SNP ([id number]) [place] [id number] Care Teams Timber Cutter Relationship Specialty Start Date End Date Keely Wilburn MD [address] [place] [phone] PCP - General Internal Medicine 02/11/20
--- OUTSIDE RECORDS SUMMARY | 2025-07-28 10:24 | XMS_ITS | Encounter Summary ---
Author Organization [employer] Address [address] [facility] 7t [place] [address] Care Team Providers Care Family Court Justice Name Role Phone Keely Wilburn MD Primary Care Provider + Reason for Visit * Reason Onset Date Comments Email paperwork 12/26/2022 Encounter Details Date Type Department Care Team ([facility] st Contact Info) Description 12/26/2022 Telephone [facility] MEDICINE [address] [place], [place] [phone] Keely Wilburn MD [address] [place] [address] Email paperwork Social History Tobacco Use Types [...] Miscellaneous Notes * Telephone Encounter - Wernerdang Lyles Moe - 12/26/2022 3:13 PM EST Tc from Cathryn with [facility] stating that she spoke with a nurse regarding some paperwork that nurse was having trouble faxing over and Cathryn gave over her but she has not receive anything back, the email is [email or web address] If any information needed please contact Cathryn at [phone] documented in this encounter Plan of Treatment Not on file documented as of this encounter Visit Diagnoses Not on filedocumented in this encounter Care Teams Family Court Justice Relationship Specialty Start Date End Date Keely Wilburn MD [address] [place] [address] PCP - General Family Medicine 10/27/19 [employer] 08/06/24 documented as of this encounter
--- OUTSIDE RECORDS SUMMARY | 2025-07-28 10:24 | XMS_ITS | Encounter Summary ---
Author Organization [employer] Address [address] [facility] 7t [place] [address] Care Team Providers Care Sales And Marketing Manager Name Role Phone Keely Wilburn MD Primary Care Provider + Encounter Details Date Type Department Care Team (Late st Contact Info) Description 01/17/2023 Abstract [facility] MEDICINE [address] [place], [place] [phone] Keely Wilburn MD [address] [place], [place] [phone] Social History Tobacco Use Types Packs/Day Years [...] on filedocumented in this encounter Care Teams Sales And Marketing Manager Relationship Specialty Start Date End Date Keely Wilburn MD [address] [place], [place] [phone] PCP - General Family Medicine 10/27/19 [employer] 08/06/24 documented as of this encounter
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
--- OUTSIDE RECORDS SUMMARY | 2025-07-28 10:25 | XMS_ITS | Encounter Summary ---
Author Organization [employer] Address 75 [facility] 7t [place] [address] Care Team Providers Care Drier Operator Head Name Role Phone Keely Wilburn MD Primary Care Provider + Reason for Visit * Reason Onset Date Comments Hospital Follow-up 12/08/2024 Encounter Details Date Type Department Care Team ([facility] st Contact Info) Description 12/08/2024 Telephone [facility] MEDICINE 230 [place], [place] [phone] Keely Wilburn MD 230 [place], [place] [phone] Hospital Follow-up Social History Tobacco Use Types [...] pt daughter requesting a HDF appt. Hospital: [place], [place] Date of admission: 12/02 Discharge date: 12/05 Diagnosed: Diarrhea, Vomiting, Abdominal Pain, Chest Pain, Dizziness *Send message to [facility] Clinical Care Coordinators documented in this encounter Plan of Treatment Not on file documented as of this encounter Visit Diagnoses Not on filedocumented in this encounter Care Teams Drier Operator Head Relationship Specialty Start Date End Date Keely Wilburn MD [address] [place] [address] PCP - General Family Medicine 10/27/19 [email or web address] 08/06/24 documented as of this encounter
--- OUTSIDE RECORDS SUMMARY | 2025-07-28 10:25 | XMS_ITS | Encounter Summary ---
Author Organization [email or web address] Address 75 [facility] 7t [place] [address] Care Team Providers Care Stack Attendant Name Role Phone Keely Wilburn MD Primary Care Provider + Reason for Visit * Reason Comments Med Refill Encounter Details Date Type Department Care Team (Late st Contact Info) Description 12/09/2023 Refill [facility] MEDICINE 230 [place], [place] [phone] Keely Wilburn MD 230 [place], [place] [phone] Osteopenia of neck of femur, unspecified laterality [...] laterality documented in this encounter Care Teams Stack Attendant Relationship Specialty Start Date End Date Keely Wilburn MD [address] [place] [address] PCP - General Family Medicine 10/27/19 [employer] 08/06/24 documented as of this encounter
--- OUTSIDE RECORDS SUMMARY | 2025-07-28 10:25 | XMS_ITS | Encounter Summary ---
Author Organization [facility] Address [address] [place] [address] Phone Care Team Providers Care Airline Operations Agent Name Role Phone Keely Wilburn MD Primary Care Provider + [phone] Encounter Details Date Type Department Care Team (Late st Contact Info) Description 10/11/2021 Documentation Only [facility] [address] [place] [address] Terrance Garcia MD [address] [facility] [address] [place] [address] Social History Tobacco Use Types [...] Visit [facility] [address] [place] [address] Terrance Garcia MD [address] [facility] [address] [place] [address] documented as of this encounter Visit Diagnoses Not on filedocumented in this encounter Care Teams Airline Operations Agent Relationship Specialty Start Date End Date Keely Wilburn MD [address] [place] [address] PCP - General Internal Medicine 02/11/20 documented as of this encounter
--- OUTSIDE RECORDS SUMMARY | 2025-07-28 10:25 | XMS_ITS | Encounter Summary ---
Author Organization [employer] Address 75 [facility] 7t [place] [address] Care Team Providers Care Padded Box Sewer Name Role Phone Keely Wilburn MD Primary Care Provider + Reason for Visit * Reason Comments Med Change Request Encounter Details Date Type Department Care Team (Late st Contact Info) Description 11/06/2023 Refill [facility] MEDICINE 230 [place], [place] [phone] Keely Wilburn MD 230 [place], [place] [phone] Osteopenia of neck of femur, unspecified laterality [...] laterality documented in this encounter Care Teams Padded Box Sewer Relationship Specialty Start Date End Date Keely Wilburn MD [address] [place] [address] PCP - General Family Medicine 10/27/19 [employer] 08/06/24 documented as of this encounter
--- OUTSIDE RECORDS SUMMARY | 2025-07-28 10:25 | XMS_ITS | Encounter Summary ---
Author Organization [employer] Address 75 [facility] 7t [place] [address] Care Team Providers Care Laborer Fryer Farm Name Role Phone Keely Wilburn MD Primary Care Provider + Encounter Details Date Type Department Care Team (Late st Contact Info) Description 11/08/2023 Abstract [facility] MEDICINE 230 [place], [place] [phone] Keely Wilburn MD 230 [place], [place] [phone] Social History Tobacco Use Types Packs/Day Years [...] on filedocumented in this encounter Care Teams Laborer Fryer Farm Relationship Specialty Start Date End Date Keely Wilburn MD [address] [place] [phone] PCP - General Family Medicine 10/27/19 [employer] 08/06/24 documented as of this encounter
--- OUTSIDE RECORDS SUMMARY | 2025-07-28 10:25 | XMS_ITS | Encounter Summary ---
Author Organization [employer] Address 75 [facility] 7t [place] [address] Care Team Providers Care Mysql Developer Name Role Phone Keely Wilburn MD Primary Care Provider + Reason for Visit * Reason Comments Med Refill Encounter Details Date Type Department Care Team (Late st Contact Info) Description 01/18/2024 Refill [facility] MEDICINE 230 [place], [place] [phone] Keely Wilburn MD 230 [place], [place] [phone] Other postherpetic nervous system involvement Social History [...] involvement documented in this encounter Care Teams Mysql Developer Relationship Specialty Start Date End Date Keely Wilburn MD [address] [place] [address] PCP - General Family Medicine 10/27/19 [employer] 08/06/24 documented as of this encounter
--- OUTSIDE RECORDS SUMMARY | 2025-07-28 10:25 | XMS_ITS | Encounter Summary ---
Author Organization [employer] Address 75 [facility] 7t [place] [address] Care Team Providers Care Gas Collection System Operator Name Role Phone Keely Wilburn MD Primary Care Provider + Reason for Visit * Reason Comments Med Refill Encounter Details Date Type Department Care Team (Late st Contact Info) Description 07/09/2024 Refill [facility] MEDICINE 230 [place], [place] [phone] Keely Wilburn MD 230 [place], [place] [phone] Slow transit constipation; Type 2 diabetes mellitus with hyperglycemia, with long-term current use of insulin ([facility]) Social History Tobacco Use Types Packs/Day [...] long-term current use of insulin ([facility]) documented in this encounter Care Teams Gas Collection System Operator Relationship Specialty Start Date End Date Keely Wilburn MD [address] [place] [address] PCP - General Family Medicine 10/27/19 [employer] 08/06/24 documented as of this encounter
--- OUTSIDE RECORDS SUMMARY | 2025-07-28 10:25 | XMS_ITS | Encounter Summary ---
Author Organization [facility] Address [address] [place] [address] Phone Care Team Providers Care Program Director/Music Director Name Role Phone Keely Wilburn MD Primary Care Provider + [phone] Encounter Details Date Type Department Care Team (Late Contact Info) Description 03/18/2024 Documentation Only [facility] [address] [place] [address] Juju Avila [address] [place] [phone] Social History Tobacco Use Types Packs/Day Years [...] [facility] [address] [place] [address] Terrance Gracia MD [address] [place] [address] [place] [address] documented as of this encounter Visit Diagnoses Not on filedocumented in this encounter Care Teams Program Director/Music Director Relationship Specialty Start Date End Date Keely Wilburn MD [address] [place] [address] PCP - General Internal Medicine 02/11/20 documented as of this encounter
--- OUTSIDE RECORDS SUMMARY | 2025-07-28 10:25 | XMS_ITS | Encounter Summary ---
Author Organization [employer] Address 75 [facility] 7t [place] [address] Care Team Providers Care Academic Dean Name Role Phone Keely Wilburn MD Primary Care Provider + Reason for Visit * Reason Comments Med Refill Encounter Details Date Type Department Care Team (Late st Contact Info) Description 05/08/2024 Refill [facility] MEDICINE 230 [place], [place] [phone] Keely Wilubrn MD 230 [place], [place] [phone] Osteopenia of neck of femur, unspecified laterality [...] laterality documented in this encounter Care Teams Academic Dean Relationship Specialty Start Date End Date Keely Wilburn MD [address] [place] [address] PCP - General Family Medicine 10/27/19 [employer] 08/06/24 documented as of this encounter
--- OUTSIDE RECORDS SUMMARY | 2025-07-28 10:25 | XMS_ITS | Encounter Summary ---
Author Organization [employer] Address [address] [facility] 7t [place] [address] Care Team Providers Care Fork Lift Technician Name Role Phone Keely Wilburn MD Primary Care Provider + Reason for Visit * Reason Comments Med Refill Encounter Details Date Type Department Care Team (Late st Contact Info) Description 01/25/2025 Refill [facility] MEDICINE 230 [place], [place] [phone] Keely Wilburn MD 230 [place], [place] [phone] Social History Tobacco Use Types Packs/Day Years [...] on filedocumented in this encounter Care Teams Fork Lift Technician Relationship Specialty Start Date End Date Keely Wilburn MD [address] [place] [address] PCP - General Family Medicine 10/27/19 [employer] 08/06/24 documented as of this encounter
--- OUTSIDE RECORDS SUMMARY | 2025-07-28 10:25 | XMS_ITS | Encounter Summary ---
Author Organization [facility] Address [address] [place] [address] Phone Care Team Providers Care Gauger Chief Delivery Name Role Phone Keely Wilburn MD Primary Care Provider + [phone] Encounter Details Date Type Department Care Team (Late Contact Info) Description 03/18/2024 Documentation Only [facility] [address] [place] [address] Juju Avila [address] [place] [phone] Social History Tobacco Use Types Packs/Day Years [...] Visit [facility] [address] [place] [place] [address] Terrance Garcia MD [address] [place] [address] [place] [address] documented as of this encounter Visit Diagnoses Not on filedocumented in this encounter Care Teams Gauger Chief Delivery Relationship Specialty Start Date End Date Keely Wilburn MD [address] [place] [address] PCP - General Internal Medicine 02/11/20 documented as of this encounter
--- OUTSIDE RECORDS SUMMARY | 2025-07-28 10:25 | XMS_ITS ---
Author Name Sherry Lucio NP Address [address] [place] [address] Phone [phone] [facility] Care Team Providers Care Knitted Goods Shaper Name Role Phone Sherry Lucio Unavailable [phone] Reason for Referral Not Available Allergies, adverse [...] No Data Available BD AUTOSHIELD DUO NDL [id number] USE WITH INSULIN TWICE DAILY 2022-09-05 No Data Meseret ilable Benazepril 20 mg Tab TAKE 1 TABLET (20 M G) BY MOUTH IN THE MORNING. DC BENAZEPRIL/HCTZ 2022-11-16 No Data Available Lantus SoloStar 100 UNIT/ML Solution Pen-injector INJECT 18 UNITS SUBCUTANEOUSLY ONCE DAILY 2023-05-31 No Data Available amLODIPine Besylate 10 mg Tab TAKE 1/2 TABLET BY MOUTH DAILY 2022-08-24 No Data Available Mqiupgohcs-XWQH-Fgdetbnm 50/325/40 mg Tab TAKE 1 TABLET BY [...] No Data Available BD AUTOSHIELD DUO NDL [id number] USE WITH INSULIN TWICE DAILY 2023-12-25 No [...] and one episode of vomiting this am. [facility] tested member this am and she is [...] health RN. Continue to push pedialite and scrap picker zofran. f/u sched 01/21/24-call CB 04/06 [...] joint pain increased [facility]. Follow[facility]up with [facility] as needed for any acute or disease education needs that may arise 04/06.what should be done when the member calls: see each individual diagnosis for contingency plan Encounters Encounters Type Facility Date of Service Diagnosis/Co mplaint New patient,40-59min; chronic exacerbation, 2 stable chronic or 1 acute illness add add modifier 95 for video (do not use for phone, instead use 72629-34) [facility] [place] Severe persistent asthma, uncomplicatedBenign paroxysmal vertigo, [...] (do not use for phone, instead use 23660-04) [facility] [place] New patient,40-59min; chronic exacerbation, 2 stable chronic or 1 acute illness add add modifier 95 for video (do not use for phone, instead use 44624-15) [facility] [place] New patient,40-59min; chronic exacerbation, 2 stable chronic or 1 acute illness add add modifier 95 for video (do not use for phone, instead use 83366-13) [facility] [place] New patient,40-59min; chronic exacerbation, 2 stable chronic or 1 acute illness add add modifier 95 for video (do not use for phone, instead use 60328-43) [facility] [place] New patient,40-59min; chronic exacerbation, 2 stable chronic or 1 acute illness add add modifier 95 for video (do not use for phone, instead use 89969-98) [facility] [place] New patient,40-59min; chronic exacerbation, 2 stable chronic or 1 acute illness add add modifier 95 for video (do not use for phone, instead use 51424-62) [facility] [place] New patient,40-59min; chronic exacerbation, 2 stable chronic or 1 acute illness add add modifier 95 for video (do not use for phone, instead use 64946-36) [facility] [place]23 New patient,40-59min; chronic exacerbation, 2 stable chronic or 1 acute illness add add modifier 95 for video (do not use for phone, instead use 52975-61) [facility] [place]23 New patient,40-59min; chronic exacerbation, 2 stable chronic or 1 acute illness add add modifier 95 for video (do not use for phone, instead use 42589-00) [facility] [place] 12/[place]/2023 No Data Available [facility] [place] 01/[place]/2024 Severe persistent asthma, uncomplicatedUnspecified chronic bronchitis No Data Available [facility] [place] 01/15/2024 No Data Available [facility] [place] 01/17/2024 Severe persistent asthma, uncomplicatedUnspecified chronic bronchitisBenign [...] and other health care No Data Available [facility] [place] 01/17/2024 No Data Available [facility] [place]/17/2024 No Data Available [facility] [place] 01/17/2024 No Data Available [facility] [place] 01/18/2024 Severe persistent asthma, uncomplicatedUnspecified chronic bronchitisUnspecified [...] and other health care No Data Available [facility] [place] 01/18/2024 No Data Available [facility] [place] 01/18/2024 No Data Available [facility] [place] 01/18/2024 No Data Available [facility] [place] 01/21/2024 Severe persistent asthma, uncomplicatedUnspecified chronic bronchitisUnspecified [...] and other health care No Data Available [facility] [place] 01/21/2024 Vital Signs Date of Collection Vitals [...] tive Time Current Smoking Status Never smoker 2025-07-13 4 Sex Female History of Procedures Procedures Service Procedure code Service date Servicing provider Phone# New patient,40-59min; chronic exacerbation, 2 stable chronic or 1 acute illness add add modifier 95 for video (do not use for phone, instead use 87273-70) 81815 2023-12-04 No Data Available No Data Availa [...] No Data Avail able No Data Available [id number] 2024-01-15 No Data Available No Data Available [...] No Data Availa ble No Data Available [id number] 2024-01-18 No Data Available No Data Available SBP 130-139 (3075F) 3075F 2024-01-18 No Data Availabl e No Data Available DBP <80 (3078F) 3078F 2024-01-18 No Data Available No Data Available Functional Status Assessed (1170F) 1170F 2024-01-18 No Data Available No Data Avail able No Data Available [id number] 2024-01-21 No Data Available No Data Available [...] and one episode of vomiting this am. [facility] tested member this am and she is [...] and one episode of vomiting this am. [facility] tested member this am and she is [...] health RN. Continue to push pedialite and scrap picker zofran. f/u sched 01/21/24-call CB 04/06 [...] and one episode of vomiting this am. [facility] tested member this am and she is [...] health RN. Continue to push pedialite and scrap picker zofran. f/u sched 01/21/24-call CB 04/06 [...]
--- OUTSIDE RECORDS SUMMARY | 2025-07-28 10:25 | XMS_ITS | Encounter Summary ---
Author Organization [employer] Address 75 [facility] 7t [place] [address] Care Team Providers Care Television Repair Teacher Name Role Phone Keely Wilburn MD Primary Care Provider + Reason for Visit * Reason Comments Med Refill Encounter Details Date Type Department Care Team (Late st Contact Info) Description 07/16/2024 Refill [facility] MEDICINE 230 [place], [place] [phone] Keely Wilburn MD 230 [place], [place] [phone] Type 2 diabetes mellitus with hyperglycemia, with long-term current use of insulin ([facility]) Social History Tobacco Use Types Packs/Day Years [...] hyperglycemia, with long-term current use of insulin ([facility]) documented in this encounter Care Teams Television Repair Teacher Relationship Specialty Start Date End Date Keely Wilburn MD [address] [place] [address] PCP - General Family Medicine 10/27/19 [employer] 08/06/24 documented as of this encounter
--- OUTSIDE RECORDS SUMMARY | 2025-07-28 10:25 | XMS_ITS | Clinical Summary ---
Author Organization [address] [place] [address] Address [address] [place] [address] Phone Care Team Providers Care Chemical Process Equipment Operator Name Role Phone Keely Wilburn MD [...] DR capsule 1 Active DIABETIC SUPPLIES, [facility] ONE TOUCH BASIC STRIPS Active lancets lancets [...] 10/03/2024 Diabetes mellitus type 2, un complicated (CMS/[facility] V24, CMS/[facility] V28) 10/03/2024 Hypertension 10/03/2024 Closed fracture of lower end of humerus 08/11/20 10 Overview (10/03/2024): IMO update Encounters Date Type Department Care Team Description 07/02/2025 9:00 AM EDT Office Visit Orthopedic Surgery - [address] [phone] Cr Bolton DPM Controlled type 2 diabetes with neuropathy (CMS[facility] V24, CMS/[facility] V28) (Primary Dx); PVD (peripheral vascular disease) ([facility] V24); Arthritis of both feet; Tinea pedis of both feet; Dermatophytosis, nail from Last 3 Months Surgical History Surgery Date Site/Laterality Comments OTHER SURGICAL HISTORY PROCEDURE: DENIES PREVIOUS SURGERY OTHER SURGICAL HISTORY PROCEDURE: SC LIG/TRNSXJ FLP TUBE ABDL/VAG APPR UNI/BI Medical History Medical History Date Comments Asthma DX:Asthma High blood pressure DX:High bloo d pressure Anemia DX:Anemia Anxiety state DX:Anxiety state Hypertension DX:Hypertension Hypertension DX:Hypertension Diabetes mellitus type 2, un complicated ([facility]/HCC V24, [facility]/HCC V28) DX:Diabetes mellitus type 2 , uncomplicated ([facility]) Esophageal reflux DX:Esophageal reflux Hyperlipidemia DX:Hyperlipidemi a [...] Care Team (Late st Contact Info) Description 10/05/2025 8:15 AM EST Office Visit Orthopedic Surgery - [place] [address] [phone] Cr Bolton, LORENA [address] [address] Health Maintenance Due Date Last Done Comments [...] Patients (1 - 1-dose 75+ series) 2023 Depression Screening 11/12/2024 COVID-19 Vaccine ( season) 2025 03/29/2022, 09/20/2021, 08/19/2021 Influenza Vaccine (#1) 2025 , 08/24/2022, 11/18/2021, Additional history exists Diabetes: Blood Sugar Control Test (HGBA1C) 12/10/2025 06/09/2025, 01/15/2025, 10/14/2024, Additional history exists Diabetes: Annual GFR (Glomerular [...] MAINTENANCE Final Result * Colonoscopy (09/12/2018) Pathologist [facility] Colonoscopy no interpretation , abstracted Anatomical Region Laterality Modality Other [facility] Provider HEALTH MAINTENANCE Final Result * (ABNORMAL) Hemoglobin A1c (07/12/2018) Pathologist [facility] Hemoglobin A1C 6.5(A) 4.0 - 6.0 % Blood Venous blood specimen / Unknown Historical Provider LAB BLOOD ORDERABLES Mkea l Result from Last 3 Months or Most Recently Relevant to Health Maintenance Insurance [facility] MEDICARE Member Subscriber Plan / Payer (Ef fective 2024-Present) Name:Adrianne Landeros Relation to Subscriber:Self Name:Adrianne Landeros Payer ID:[id number] Group ID:[id number] Type:Not on file Address: [facility] [address] [id number] Advance Directives Documents on File Type Date Recorded Patient Head Of Marketing Analytics Expl anation Health Care Decision (hx) 04/22/2018 [...] (hx) 04/22/2018 AD BECKWITH DIRECTIVE Care Teams Chemical Process Equipment Operator Relationship Specialty Start Date End Date Keely Wilburn MD [address] [place] [phone] PCP - General 03/01/22
--- OUTSIDE RECORDS SUMMARY | 2025-07-28 10:25 | XMS_ITS | Encounter Summary ---
Author Organization [employer] Address [address] [facility] 7t [place] [address] Care Team Providers Care Supervisor Maintenance And Custodians Name Role Phone Keely Wilburn MD Primary Care Provider + Reason for Visit * Reason Onset Date Comments Referral 12/08/2024 order 12/08/2024 Encounter Details Date Type Department Care Team (Late st Contact Info) Description 12/08/2024 Telephone [facility] MEDICINE [address] [place], [place] [phone] Keely Wilburn MD [address] [place], [place] [phone] Referral; order Social History Tobacco Use Types [...] more info provided. Any questions contact Ashlyn Turkmen documented in this encounter Plan of Treatment Not on file documented as of this encounter Visit Diagnoses Not on filedocumented in this encounter Care Teams Supervisor Maintenance And Custodians Relationship Specialty Start Date End Date Keely Wilburn MD [address] [place] [phone] PCP - General Family Medicine 10/27/19 [facility] 08/06/24 documented as of this encounter
--- OUTSIDE RECORDS SUMMARY | 2025-07-28 10:25 | XMS_ITS | Encounter Summary ---
Author Organization [facility] Address [address] [place] [address] Phone Care Team Providers Care Mat Linker Name Role Phone Keely Wilburn MD Primary Care Provider + [phone] Encounter Details Date Type Department Care Team (Late Contact Info) Description 03/06/2025 Documentation Only [facility] [address] [place] [address] Juju Avila [address] [place] [phone] Social History Tobacco Use Types Packs/Day Years [...] [facility] [address] [place] [address] Terrance Garcia MD [address] [place] [address] [place] [address] documented as of this encounter Visit Diagnoses Not on filedocumented in this encounter Care Teams Mat Linker Relationship Specialty Start Date End Date Keely Wilburn MD [address] [place] [phone] PCP - General Internal Medicine 02/11/20 documented as of this encounter
--- OUTSIDE RECORDS SUMMARY | 2025-07-28 10:25 | XMS_ITS | Encounter Summary ---
Author Organization [facility] Address [address] [place] [address] Phone Care Team Providers Care Biochemical Development Engineer Name Role Phone Keely Wilburn MD Primary Care Provider + [phone] Encounter Details Date Type Department Care Team (Late Contact Info) Description 03/18/2024 Documentation Only [facility] [address] [place] [address] Juju Avila [address] [place] [phone] Social History Tobacco Use Types Packs/Day Years [...] Visit [facility] [address] [place] [address] Terrance Garcia MD [address] [place] [address] [place] [address] documented as of this encounter Visit Diagnoses Not on filedocumented in this encounter Care Teams Biochemical Development Engineer Relationship Specialty Start Date End Date Keely Wilburn MD [address] [place] [phone] PCP - General Internal Medicine 02/11/20 documented as of this encounter
--- OUTSIDE RECORDS SUMMARY | 2025-07-28 10:25 | XMS_ITS | Encounter Summary ---
Author Organization [employer] Address [address] [facility] 7t [place] [address] Care Team Providers Care Home Health Care Coordinator Name Role Phone Keely Wilburn MD Primary Care Provider + Encounter Details Date Type Department Care Team (Late st Contact Info) Description 05/07/2024 Telephone [facility] MEDICINE [address] [place], [place] [phone] Keely Wilburn MD [address] [place], [place] [phone] Social History Tobacco Use Types Packs/Day Years [...] contact # if there is any questions [phone] documented in this encounter Plan of Treatment Not on file documented as of this encounter Visit Diagnoses Not on filedocumented in this encounter Care Teams Home Health Care Coordinator Relationship Specialty Start Date End Date Keely Wilburn MD [address] [place] [phone] PCP - General Family Medicine 10/27/19 [facility] 08/06/24 documented as of this encounter
--- OUTSIDE RECORDS SUMMARY | 2025-07-28 10:25 | XMS_ITS | Encounter Summary ---
Author Organization [facility] Address [address] [place] [address] Phone Care Team Providers Care Set Designer Name Role Phone Keely Wilburn MD Primary Care Provider + [phone] Encounter Details Date Type Department Care Team (Late Contact Info) Description 03/18/2024 Documentation Only [facility] [address] [place] [address] Juju Avila [address] [place] [phone] Social History Tobacco Use Types Packs/Day Years [...] [facility] [address] [place] [address] Terrance Garcia MD [address] [place] [address] [place] [address] documented as of this encounter Visit Diagnoses Not on filedocumented in this encounter Care Teams Set Designer Relationship Specialty Start Date End Date Keely Wilburn MD [address] [place] [phone] PCP - General Internal Medicine 02/11/20 documented as of this encounter
--- OUTSIDE RECORDS SUMMARY | 2025-07-28 10:25 | XMS_ITS | Encounter Summary ---
Author Organization [facility] Address [address] [place] [address] Phone Care Team Providers Care Pneumatic Tool Operator Name Role Phone Keely Wilburn MD Primary Care Provider + [phone] Encounter Details Date Type Department Care Team (Late Contact Info) Description 03/18/2024 Documentation Only [facility] [address] [place] [address] Juju Avila [address] [place] [phone] Social History Tobacco Use Types Packs/Day Years [...] Visit [facility] [address] [place] [address] Terrance Garcia MD [address] [place] [address] [place] [address] documented as of this encounter Visit Diagnoses Not on filedocumented in this encounter Care Teams Pneumatic Tool Operator Relationship Specialty Start Date End Date Keely Wilburn MD [address] [place] [phone] PCP - General Internal Medicine 02/11/20 documented as of this encounter
--- OUTSIDE RECORDS SUMMARY | 2025-07-28 10:25 | XMS_ITS | Encounter Summary ---
Author Organization [employer] Address [address] [facility] 7t [place] [address] Care Team Providers Care Armature Repairer Name Role Phone Keely Wilburn MD Primary Care Provider + Reason for Visit * Reason Comments Med Change Request Encounter Details Date Type Department Care Team ([facility] st Contact Info) Description 11/09/2023 Refill [facility] [address] [place], [place] [phone] Kaci Le, [address] [place] [address] Type 2 diabetes mellitus with other specified complication, unspecified whether heavy media operator insulin use (CMS/[facility]) Social History Tobacco Use Types Packs/Day [...] mellitus with other specified complication, unspecified whether detention insulin use (CMS/[facility]) documented in this encounter Care Teams Armature Repairer Relationship Specialty Start Date End Date Keely Wiblurn MD [address] [place] [phone] PCP - General Family Medicine 10/27/19 [facility] 08/06/24 documented as of this encounter
--- OUTSIDE RECORDS SUMMARY | 2025-07-28 10:25 | XMS_ITS | Clinical Summary ---
Author Organization [employer] Address [address] [facility] [address] [place] [address] Care Team Providers Care Account Development Associate Name Role Phone Keely Wilburn MD Primary Care Provider + Allergies Active Allergy Reactions Criticality Noted Date Comments Aspirin Hives 11/16/2022 Penicillin G 04/11/2013 Other reaction(s): Rash Medications cyanocobalamin (Vitamin B-12) 100 MCG tablet 021 Active glucose blood (OneTouch Ultra) test strip 017 Active sennosides (Senokot) 8.6 MG tablet 021 Active timolol (Timoptic) 0.5 % ophthalmic solution Active gabapentin (Neurontin) 100 MG capsule Take 100 mg by mouth in the morning and 100 mg at noon and 100 mg in the evening. Active rosuvastatin (Crestor) 20 MG tablet Take 20 mg by mouth Once per day. 022 Active Acetaminophen Extra Strength 500 MG [...] WITHIN 12 HOURS OR DIRECTED 30 patch 024 Active docusate sodium (Colace) 100 MG capsuleIndicati ons:Slow transit constipation TAKE ONE CAPSULE BY MOUTH TWICE A DAY NEEDED (VIAL) 60 capsule 11 Active meclizine (Antivert) 25 MG tabletIndicatio ns:Benign paroxysmal positional vertigo, unspecified laterality TAKE ONE TABLET BY MOUTH EVERY DAY NEEDED FOR DIZZINESS (VIAL) 30 tablet Active benazepril (Lotensin) 20 MG tabletIndicatio ns:Primary hypertension TAKE 1 TABLET BY MOUTH TWICE A DAY 60 tablet 11 Active Lancets (OneTouch Delica Plus [id number]) miscIndications :Type 2 diabetes mellitus with diabetic nephropathy, with long-term current use of insulin ([facility]) USE TO TEST BLOOD SUGAR [...] Administer 1 drop into the right eye in the morning and 1 drop in the evening. Active budesonide (Pulmicort) 1 MG/2ML nebulizer solution Take 1 mg by nebulization in the morning and at bedtime. 1 vial Active colchicine 0.6 MG tablet Take 1 tablet by mouth Once per day. Active Continuous Glucose Sensor (FreeStyle Kelly 2 Sensor) [facility] Use as directed Active ketoconazole (NIZOral) 2 % cream Apply 1 Application. topically Once per day. Active ketorolac (Acular) 0.5 % ophthalmic solution Administer 1 drop into both eyes in the morning and 1 drop in the evening. Active montelukast (Singulair) 10 MG tablet Take 1 tablet by mouth Once per day. For allergy symptoms Active omeprazole (PriLOSEC) [address] capsule Take 1 capsule by mouth in the morning. 01/14/2 025 Active sertraline (Zoloft) 50 MG tablet Take 1 tablet by mouth Once per day. 025 Active Blood Pressure Monitoring (Blood Pressure Cuff) misc Use daily as prescribed 1 each 025 Active amLODIPine-mark zepril (Lotrel) 5-40 MG capsule Take 1 capsule by mouth Once per day. 30 capsule 11 025 2025 Active Dulaglutide (Trulicity) 1.5 MG/0.5ML solution auto-injectorIn dications:Type 2 diabetes mellitus with hyperglycemia, with long-term current use of insulin ([facility]) Inject 1.5 mg under the skin 1 (one) time per week. 2 mL 5 025 Active cholecalciferol (Vitamin D-3) 1.25 MG (22713 UT) capsule TAKE 1 CAPSULE BY MOUTH ONCE WEEKLY 12 capsule 1 025 Active Lantus SoloStar 100 UNIT/ML penIndications: Type 2 diabetes mellitus with other specified complication, unspecified whether buttermaker insulin use ([facility]) INJECT 18 UNITS SUBCUTANEOUSLY ONCE DAILY 15 mL 1 025 Active albuterol (ProAir HFA) 108 (90 Base) MCG/ACT inhalerIndicati ons:Moderate persistent asthma, unspecified whether complicated INHALE 2 PUFFS BY MOUTH EVERY 4 TO 6 HOURS IF NEEDED 18 g 3 025 Active albuterol 1.25 MG/3ML nebulizer solutionIndicat ions:Viral upper respiratory tract infection INHALE 1 VIAL VIA NEBULIZER EVERY 6 HOURS IF NEEDED FOR WHEEZING 75 mL 3 025 Active Calcium Antacid Extra Strength 750 MG chewable tablet CHEW 1 TABLET EVERY DAY 84 tablet 2 025 Active albuterol (ProAir HFA) 108 (90 Base) MCG/ACT inhalerIndicati ons:Moderate persistent asthma, unspecified whether complicated INHALE 2 PUFFS BY MOUTH EVERY 4 TO 6 HOURS IF NEEDED 18 g 3 024 2024 Discontinued(R eorder (will not trigger notification to Pharmacy)) albuterol 1.25 MG/3ML nebulizer solutionIndicat ions:Viral upper respiratory tract infection INHALE 1 VIAL VIA NEBULIZER EVERY 6 HOURS IF NEEDED FOR WHEEZING 75 mL 3 024 2024 Discontinued(R eorder (will not trigger notification to Pharmacy)) calcium carbonate EX (Tums E-X) 750 MG chewable tablet Chew 1 tablet (750 mg) Once per day. 90 tablet 3 024 2024 Discontinued Active Problems Problem Noted Date Diagnosed Date Localized swelling of right lower extremity 01/2025 Assessment & Plan (04/14/2025 11:09 AM EDT): 75 yr old diabetic female with c/o sudden onset of right LE redness, swelling and pain since yesterday. On exam her right LE circumference is significantly bigger than the left. There is redness and significant tenderness to palpation Etiology ? First and foremost acute DVT needs to rule out, if negative this may be due to a right LE cellulitis that will need to be treated Discussed with daughter who agreed to bring patient [place] [facility] for emergent US to rule out DVT Will schedule a follow up visit with PCP after ER evaluation for follow up. 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 Follow-up with rheumatology. Use Tylenol as needed pain. Pancreatic lesion 01/15/2025 Overview (01/15/2025): CT scan abdomen and pelvis [place] 12[place]02/2024 [place] [facility] Assessment & Plan (06/09/2025 10:46 AM EDT): He has benign features, to be followed by surgeon every 6 months Patient will reconsult as needed worsening abdominal pain, nausea, icterus, weight loss or diarrhea Assessment & Plan (01/15/2025 3:48 PM EST): CT scan abdomen and pelvis had shown hypodense lesions on the tail of the pancreas and both kidneys. I will try to expedite MRI of the abdomen to determine the nature of this lesions, rule out malignancy. Renal lesion 01/15/2025 Overview (01/15/2025): CT scan abdomen and pelvis on 12/02/2024 at [facility] Assessment & Plan (01/15/2025 3:49 PM EST): See pancreatic lesions above, will try to expedite MRI of the abdomen Venous ulcer of left leg 07/31/2024 Assessment & Plan (07/31/2024 2:34 PM EDT): Ulcer dressing done by RN, see above. Schizoaffective disorder, depressive type 2023 Assessment & Plan (06/09/2025 10:47 AM EDT): She is doing well, she FU at [facility] by [facility] psych prescriber and Kathleen Li is her therapist. Continue sertraline and follow-up with me in 3 months Patient feels safe at home and is able to reach out for safety Type 2 diabetes mellitus wit h hyperglycemia, [...] 05/24/2023 Overview (02/07/2024): Colonoscopy on 02/06/24 at [facility] Assessment & Plan (07/28/2023 7:53 PM EDT): [...] knees significant risk of fall, had a RASCHEL KNITTING MACHINE OPERATOR for assistance ADLs. Needs assistance and reminders [...] 10/13/2022 Degenerative joint disease of shoulder region Dizziness 10/13/2022 Assessment & Plan (07/28/2023 7:54 [...] renal Vascular insufficiency 10/13/2022 Assessment & Plan (06/09/2025 10:48 AM EDT): She is status post vein stripping surgery. Advised to use compression stockings to thigh level, I will send a prescription and she will follow-up with vascular surgeon Advised weight reduction Assessment & Plan (01/15/2025 11:03 AM EST): Significantly improved status both vein stripping surgery on the right leg. Advised to use compression stockings and follow-up with vascular surgeon. Assessment & Plan (07/31/2024 2:33 PM EDT): [...] bleeding 06/18/2012 Hypertension 04/25/2012 Assessment & Plan (06/09/2025 10:45 AM EDT): Much better controlled, will continue benazepril 40 mg + amlodipine 5 and follow-up with [facility] every 3 weeks, may consider adjusting medications. Follow-up with me in I will be in 3 months Assessment & Plan (01/15/2025 11:02 AM EST): Uncontrolled today, I will increase benazepril to 40 mg. I will I will switch to combo Lotrel 5/40 and follow-up with her in 6 to 7 weeks. [facility] to follow-up BP and call back as needed hypotension or intolerance to combo. Assessment & Plan (10/14/2024 1:12 PM EST): [...] diabetic nephropat hy 04/25/2012 Assessment & Plan (06/09/2025 10:46 AM EDT): Controlled. A1c is at goal. Continue on Trulicity 1.5 mg + Lantus 18 units and follow-up with cylinder machine operator pulp drier, I told him to address change of GLP to cylinder machine operator pulp drier to the 1 that has a better weight loss profile counseled re more frequent low calorie/carb meals. Check fgstk 1 x daily + as needed hypoglycemic symptoms Encouraged physical activity as tolerated. FU in 3 months. Advised to follow-up closely with podiatry next month She has appointment with ophthalmology next month as well Assessment & Plan (01/15/2025 11:03 AM EST): Controlled. A1c is at goal. Continue on Trulicity 1.5 mg + Lantus 18 units, will consider lowering Lantus at least 2 units at next visit and follow-up A1c closely. Counseled re more frequent low calorie/carb meals. Check fgstk 1 x daily Encouraged physical activity as tolerated. FU in 3 months. Assessment & Plan (10/14/2024 9:39 AM EST): [...] requested refill of Trulicity be sent to [facility] as she had difficulty picking it up at local [facility] due to supply issues Assessment & [...] Plan (05/24/2023 11:18 AM EDT): r/o hypoglycemia RASCHEL KNITTING MACHINE OPERATOR will monitor symptoms of dizziness and pt [...] Problem Noted Date Diagnosed Date Resolved Date Diarrhea 10/13/2022 06/09/2025 Pneumonia due to COVID-19 virus 10/13/2022 07/31/2024 Encounters Date Type Department Care Team Description 07/28/2025 Orders Only GENERIC EXTERNAL DATA DEPARTMENT Provider, Generic External Data 07/22/2025 Refill [facility] [address] [place] [address] [phone] Keely Wilburn MD 07/19/2025 Refill [facility] [address] [place] [address] [phone] Keely Wilburn MD 07/10/2025 Refill [facility] [address] [place] [address] [phone] Keely Wilburn MD Moderate persistent asthma, unspecified whether complicated; Viral upper respiratory tract infection 06/30/2025 Orders Only GENERIC EXTERNAL DATA DEPARTMENT Provider, Generic External Data 06/11/2025 Telephone [facility] [address] [place] [address] [phone] Keely Wilburn MD DME Compression stockings 06/09/2025 9:45 AM EDT Office Visit [facility] [address] [place] [address] [phone] Keely Wilburn MD Type 2 diabetes mellitus with diabetic nephropathy, with long-term current use of insulin ([facility]) (Primary Dx); Class 2 severe obesity due to excess calories with serious comorbidity and body mass index (BMI) of 37.0 to 37.9 in adult ([facility]); Vascular insufficiency; Primary hypertension; Pancreatic lesion; Schizoaffective disorder, depressive type ([facility]); Dietary counseling; Exercise counseling 06/09/2025 Travel 06/05/2025 Telephone [facility] [address] [place] [address] Keely Wilburn MD chart prep 06/01/2025 Patient Outreach [facility] [address] [place] [address] Keely Wilburn MD Pre-visit Planning ([facility] screening completed on 12/08/2024) 05/17/2025 Refill [facility] [address] [place] [address] Keely Wilburn MD Type 2 diabetes mellitus with other specified complication, unspecified whether buttermaker insulin use ([facility]) 05/07/2025 Telephone [facility] [address] [place] [address] Keely Wilburn MD Med Refill from Last 3 Months Immunizations Immunization Administration Dates Next Due Hep B, adult [...] Packs/Day Years Used Date Smoking Tobacco: Never Passive Smoke Exposure: Never Smokeless Tobacco: Never Tobacco Cessation:Counseling Given: [...] Sign Reading Time Taken Comments Blood Pressure 140/82 06/09/2025 10:02 AM EDT Pulse 84 06/09/2025 10:02 AM EDT Temperature 36.3 C (97.3 F) 06/09/2025 10:02 AM EDT Respiratory Rate 21 06/09/2025 10:0 2 AM EDT Oxygen Saturation 92% 06/09/2025 10: 02 AM EDT Inhaled Oxygen Concentration - - Weight 86.1 kg (189 lb 12.8 oz) 025 10:02 AM EDT Height 152.4 cm (5') 06/09/2025 10:02 AM EDT Body Mass Index 37.07 06/09/2025 10:02 AM EDT Plan of Treatment Health Maintenance Due Date Last Done Comments Eye Exam 1960 Hepatitis B Vaccines (3 of 3 - 19+ 3-dose series) 10/17/2017 05/21/2017, 04/17/2017 RSV Patients and Patients Aged 60 years or older (1 - 1-dose 75+ series) 2023 Depression Screening 11/16/2023 11/16/2022, 11/16/19 COVID-19 Vaccine ( season) 2025 03/29/2022, 09/20/2021, 08/19/2021 Influenza Vaccine (#1) 2025 , 08/24/2022, 11/18/2021, Additional history exists Lipid Panel 08/04/2025 08/04/2024, 08/12, 01/24/2023, Additional history exists Mammogram 10/07/2025 10/07/2024, 09/13, 09/19/2022, Additional history exists SDOH Screening 12/08/2025 12/08/2024 Diabetes: Hemoglobin A1C 12/10/2025 025, 01/15/2025, 10/14/2024, Additional history exists Alcohol/Substance Use Screening 06/09/2026 06/09/2025 Diabetes: Foot Exam 06/09/2026 06/09/2025, 06/09/2025, 06/09/2025, Additional history exists Tobacco Screening 06/09/2026 06/09/2025 DTaP/Tdap/Td Vaccines (3 - Td or Tdap) 06/07/2032 06/07/2022, 04/17/2017, 06/09/2009, Additional history exists FOBT Discontinued 11/23/2019 Pneumococcal Vaccine: 50+ Years Completed 05/31/2023, 08/17/2015, 07/04/2008, Additional history exists Zoster Vaccines Completed 05/31/2023, 11/15/2022 Colonoscopy Discontinued 02/06/2024, 03/07/2023 Colorectal Cancer Screening Discontinued Hepatitis C Screening Completed 05/16/2024 CT Colonography Discontinued FIT DNA/Cologuard Discontinued FIT [...] Procedure Name Priority Date/Time Associated Diagnosis Comments GLUCOSE, WHOLE BLOOD Routine 07/28/2025 8:50 AM EDT GLUCOSE, WHOLE BLOOD Routine 06/30/2025 8:38 AM EDT POCT GLYCATED HEMOGLOBIN, TOTAL Routine 06/09/2025 10:07 AM EDT Type 2 diabetes mellitus with diabetic nephropathy, with long-term current use of insulin (CMS/HCC) POCT GLUCOSE Routine 06/09/2025 10:04 AM EDT Type 2 diabetes mellitus with diabetic nephropathy, [...] of insulin (CMS/HCC) HM COLONOSCOPY Routine 02/06/2024 [facility] HISTORICAL OCCULT BLOOD STOOL X3 Routine 11/23/2019 3:00 PM EST from Last 3 Months or Most Recently Relevant to Health Maintenance Results * (ABNORMAL) Glucose, Whole Blood (07/28/2025 8:50 AM EDT) Only the most recent of2 resultswithin the time period is included. Glucose, Whole Blood 144(H) 60 - 115 mg/dL [facility] Comment:METER #: [id number] 0Testing performed in the Endocrinology Department [address] , [address], [facility]. 07/28/2025 8:50 AM EDT 07/28/2025 8:53 AM EDT Generic External Data Provider LAB BLOOD ORDERAB LES Final Result Performing Organization Address City/State/[facility] Co de Phone Number [facility] [address] [place] [phone] * (ABNORMAL) POCT HGB A1C (06/09/2025 10:07 AM EDT) Hemoglobin A1C 6.6(A) 4.0 - 5.7 % QC Media Lot # [id number] Lot# Expiration Date Blood 06/09/2025 10:0 7 AM EDT Keely Wilburn MD POINT OF CARE TEST ENTER /EDIT ORDERABLES Final Result * POCT Glucose (06/09/2025 10:04 AM EDT) Glucose Blood, POC 116 60 - 200 mg/dL QC Media Lot # [id number] Lot# Expiration Date 726 Blood Capillary blood specimen / Unknown 06/09/2025 10:04 AM EDT Keely Wilburn MD POINT OF CARE TEST ENTER /EDIT ORDERABLES Final Result * BI Mammogram Screening Tomosynthesis Bilateral (10/07/2024 8:50 AM EST) Anatomical Region Laterality Modality Breast Bilateral Mammography 10/07/2024 8:50 AM EST Narrative 10/16/2024 9:41 AM EST [facility] [address] [place], [place] [address] Mammography Report Signed Patient: Adrianne Landeros MR#: [id number] : 1950 Acct:[id number] Age/Sex: 74 / F ADM Date: 10/07/24 Loc: HO.MAMMO Attending Dr: Keely Wilburn MD Ordering Physician: Keely Wilburn MD Results: 1Ne gative Date of Service: 10/07/24 Follow Up: 1 Year From [facility] Mammogram Procedure(s): MM tomosynthesis screening BI Accession Number(s): [id number] cc: Keely Wilburn MD EXAMINATION: MM SCREENING [...] in OV> 10/16/24 0938 DD/ 0850 TD/TT: 10/07/24904 Development Chemist: Procedure Note Donotuseinterpreter, Image - 10/16/2024 [facility] [address] [place], [place] [address] Mammography Report Signed Patient: Adrianne LanderosMR#: [id number] : 8Acct:[id number] Age/Sex: 74 / FADM Date: 10/07/24 Loc: HO.MAMMO Attending Dr: Keely Wilburn MD Ordering Physician: Keely Wilburn MDResults: 1Ne gative Date of Service: 10/07/24Follow Up: 1 Year From Orig inal Mammogram Procedure(s): MM tomosynthesis screening BI Accession Number(s): [id number] cc: Keely Wilburn MD EXAMINATION: MM SCREENING [...] Goldstein DO in OV> 10/16/24 0938 DD/ TD/TT: 10/07/24904 Development Chemist: Keely Wilburn MD IMG BI PROCEDURES Edited Result - Final * (ABNORMAL) Lipid Panel with Reflex to Direct LDL (08/04/2024 9:55 AM EDT) Triglycerides 174(H) <150 mg/dL [facility] Comment:Desirable Triglyceri de: less than 150 mg/dLBorderline High Triglyceride 150-199 mg/dLHigh Triglyceride: 200-499 mg/dLVery High Triglyceride: greater than or equal to 5OO mg/dL Cholesterol 145 <200 mg/dL [facility] Comment:Desirable Cholestero l: less than 200 mg/dLBorderline High Cholesterol: 200-239 mg/dLHigh Cholesterol: greater than 239 mg/dL LDL Cholesterol Calculated 68 <100 mg/dL [facility] Comment:Desirable LDL: less than 100 mg/dLNear Optimal/Above Optimal LDL: 110- 129 mg/dLBorderline High LDL: 130-159 mg/dLHigh LDL: 160-189 mg/dLVery High LDL: greater than or equal to 190 mg/dL HDL Cholesterol 43 >40 mg/dL [facility] Comment:Desirable HDL: great er than 40 mg/dL Note: This HDL assay may give artificially low results in patients with liver disease. Blood 08/04/2024 9:55 AM EDT 08/04/2024 2:27 PM EDT us Keely Wilburn MD LAB BLOOD ORDERABLES Fin al Result [facility] [address] [place] [address] [phone] * Hepatitis C Antibody with Reflex to HCV, RNA, Quantitative, Real-Time PCR (05/16/2024 11:17 AM EDT) Hepatitis C Antibody Nonreactive Nonreactive [facility] Comment:Antibodies to HCV no t detected; does not exclude early acuteHCV infection. Blood Venous blood specimen / Unknown 05/16/2024 11:17 AM EDT 05/16/2024 1:09 PM EDT us Anusah Real MD LAB BLOOD ORDERABLES Final Res ult Performing Organization Address [facility]/ZIP Co de Phone Number [facility] [address] [place] [phone] * (ABNORMAL) Colonoscopy (02/06/2024) Colonoscopy Abnormal( A) Normal [facility] Comment:Tubular adenoma; neg ative for high grade dysplasia and carcinoma us Keely Wilburn MD HEALTH MAINTENANCE Final Result Performing Organization Address [facility]/ZIP Co de Phone Number [facility] [address] [place] [phone] * OCCULT BLOOD STOOL X3 (11/23/2019 3:00 PM EST) OCCULT BLOOD STOOL-1 NEG NEG [facility] OCCULT BLOOD STOOL-1 DATE 11/20/2019 [facility] OCCULT BLOOD STOOL-2 NEG NEG [facility] OCCULT BLOOD STOOL-2 DATE 11/21/2019 [facility] OCCULT BLOOD STOOL-3 NEG NEG [facility] OCCULT BLOOD STOOL-3 DATE 11/23/2019 [facility] 11/23/2019 3:00 PM EST us Keely Wilburn MD HISTORICAL/NON ORDERABLE LABS Final Result Performing Organization Address [facility] Co de Phone Number [facility] [phone] from Last 3 Months or Most Recently Relevant to Health Maintenance Insurance [facility] [employer] OPT[employer] (HMO D-SNP) Care Teams Account Development Associate Relationship Specialty Start Date End Date Keely Wilburn MD [address] [place] [address] [phone] PCP - General Family Medicine 10/27/19 [facility] 08/06/24
--- OUTSIDE RECORDS SUMMARY | 2025-07-28 10:25 | XMS_ITS | Encounter Summary ---
Author Organization [facility] Address [address] [place] [address] Phone Care Team Providers Care Can Capper Name Role Phone Keely Wilburn MD Primary Care Provider + [phone] Encounter Details Date Type Department Care Team (Late Contact Info) Description 03/26/2025 Documentation Only [facility] [address] [place] [address] Juju Avila [address] [place] [phone] Social History Tobacco Use Types Packs/Day Years [...] [facility] [address] [place] [address] Terrance Garcia MD [address] [place] [address] [place] [address] documented as of this encounter Visit Diagnoses Not on filedocumented in this encounter Care Teams Can Capper Relationship Specialty Start Date End Date Keely Wilburn MD [address] [place] [phone] PCP - General Internal Medicine 02/11/20 documented as of this encounter
--- OUTSIDE RECORDS SUMMARY | 2025-07-28 10:25 | XMS_ITS | Encounter Summary ---
Author Organization [employer] Address [address] [facility] 7[address] [place] [address] Care Team Providers Care Zinc Plate Cutter Name Role Phone Keely Wilburn MD Primary Care Provider + Reason for Visit * Reason Comments Med Refill Encounter Details Date Type Department Care Team (Late st Contact Info) Description 07/08/[address] [facility] [address] [place], [place] [phone] Anusha Real MD [address] [place], [place] [phone] Benign paroxysmal positional vertigo, unspecified laterality Social [...] laterality documented in this encounter Care Teams Zinc Plate Cutter Relationship Specialty Start Date End Date Keely Wilburn MD [address] [place] [phone] PCP - General Family Medicine 10/27/19 [facility] 08/06/24 documented as of this encounter
--- OUTSIDE RECORDS SUMMARY | 2025-07-28 10:25 | XMS_ITS | Encounter Summary ---
Author Organization [employer] Address [address] [facility] [place] [address] [place] [address] Care Team Providers Care Special Education Associate Name Role Phone Keely Wilburn MD Primary Care Provider + Reason for Visit * Reason Comments Med Refill Encounter Details Date Type Department Care Team (Late st Contact Info) Description 07/08/2024 Refill [facility] [address] [place], [place] [phone] Keely Wilburn MD [address] [place], [place] [phone] Type 2 diabetes mellitus with hyperglycemia, with long-term current use of insulin ([facility]); Slow transit constipation Social History Tobacco Use [...] hyperglycemia, with long-term current use of insulin ([facility]) Slow transit constipation documented in this encounter Care Teams Special Education Associate Relationship Specialty Start Date End Date Keely Wilburn MD [address] [place] [phone] PCP - General Family Medicine 10/27/19 [facility] 08/06/24 documented as of this encounter
--- OUTSIDE RECORDS SUMMARY | 2025-07-28 10:25 | XMS_ITS | Encounter Summary ---
Author Organization [employer] Address 75 [facility] 7t [place] [address] Care Team Providers Care Career And Transition Teacher Name Role Phone Keely Wilburn MD Primary Care Provider + Reason for Visit * Reason Onset Date Comments Med Refill 05/07/2025 Encounter Details Date Type Department Care Team ([facility] st Contact Info) Description 05/07/2025 Telephone [facility] MEDICINE 230 [place], [place] [phone] Keely Wilburn MD 230 [place], [place] [phone] Med Refill Social History Tobacco Use Types Packs/Day Years Used Date Smoking Tobacco: Never Passive Smoke Exposure: Never Smokeless Tobacco: Never Alcohol Use Standard [...] encounter Miscellaneous Notes * Telephone Encounter - Kaci Kasper LPN - 05/07/2025 12:43 PM EDT Medication not prescribed by PCP. * Telephone Encounter - Sudheer Mejia - 05/07/2025 12:38 PM EDT TC from pt requesting medication refill. Medications needing refill: colchicine 0.6 MG tablet To be sent to: [facility]/pharmacy #[id number] documented in this encounter Plan of Treatment Not on file documented as of this encounter Visit Diagnoses Not on filedocumented in this encounter Care Teams Career And Transition Teacher Relationship Specialty Start Date End Date Keely Wilburn MD [address] [place] [address] PCP - General Family Medicine 10/27/19 [employer] 08/06/24 documented as of this encounter
--- OUTSIDE RECORDS SUMMARY | 2025-07-28 10:25 | XMS_ITS | Encounter Summary ---
Author Organization [facility] Address [address] [place] [address] Phone Care Team Providers Care Email Campaign Specialist Name Role Phone Keely Wilburn MD Primary Care Provider + [phone] Encounter Details Date Type Department Care Team (Late Contact Info) Description 03/18/2024 Documentation Only [facility] [address] [place] [address] Juju Avila [address] [place] [phone] Social History Tobacco Use Types Packs/Day Years [...] [facility] [address] [place] [address] Terrance Garcia MD [address] [place] [address] [place] [address] documented as of this encounter Visit Diagnoses Not on filedocumented in this encounter Care Teams Email Campaign Specialist Relationship Specialty Start Date End Date Keely Wilburn MD [address] [place] [address] PCP - General Internal Medicine 02/11/20 documented as of this encounter
--- OUTSIDE RECORDS SUMMARY | 2025-07-28 10:25 | XMS_ITS | Encounter Summary ---
Author Organization [employer] Address 75 [facility] 7t [place] [address] Care Team Providers Care Truck Loader Name Role Phone Keely Wilburn MD Primary Care Provider + Encounter Details Date Type Department Care Team (Late st Contact Info) Description 07/10/2023 Telephone [facility] MEDICINE 230 [place] [address] Katty Gutierrez LPN Social History Tobacco Use [...] filedocumented in this encounter Care Teams Truck Loader Relationship Specialty Start Date End Date Keely Wilburn MD 230 [place] [address] PCP - General Family Medicine 10/27/19 [employer] 08/06/24 documented as of this encounter
--- OUTSIDE RECORDS SUMMARY | 2025-07-28 10:25 | XMS_ITS | Encounter Summary ---
Author Organization [facility] Address [address] [place] [address] Phone Care Team Providers Care Field Control Inspector Name Role Phone Keely Wilburn MD Primary Care Provider + [phone] Encounter Details Date Type Department Care Team (Late Contact Info) Description 03/18/2024 Documentation Only [facility] [address] [place] [address] Juju Avila [address] [place] [phone] Social History Tobacco Use Types Packs/Day Years [...] [facility] [address] [place] [address] Terrance Garcia MD [address] [place] [address] [place] [address] documented as of this encounter Visit Diagnoses Not on filedocumented in this encounter Care Teams Field Control Inspector Relationship Specialty Start Date End Date Keely Wilburn MD [address] [place] [phone] PCP - General Internal Medicine 02/11/20 documented as of this encounter
--- OUTSIDE RECORDS SUMMARY | 2025-07-28 10:26 | XMS_ITS | Encounter Summary ---
Author Organization [employer] Address 75 [facility] 7t [place] [address] Care Team Providers Care Customer Care Assistant Name Role Phone Keely Wilburn MD Primary Care Provider + Reason for Visit * Reason Comments Med Refill Encounter Details Date Type Department Care Team (Late st Contact Info) Description 08/06/[address] [facility] MEDICINE 230 [place], [place] [phone] Keely Wilburn MD 230 [place], [place] [phone] Benign paroxysmal positional vertigo, unspecified laterality Social [...] laterality documented in this encounter Care Teams Customer Care Assistant Relationship Specialty Start Date End Date Keely Wilburn MD [address] [place] [address] PCP - General Family Medicine 10/27/19 [employer] 08/06/24 documented as of this encounter
--- OUTSIDE RECORDS SUMMARY | 2025-07-28 10:26 | XMS_ITS | Encounter Summary ---
Author Organization [employer] Address [address] [facility] [address] 7t [place] [address] Care Team Providers Care Best Second Jobs Name Role Phone Keely Wilburn MD Primary Care Provider + Encounter Details Date Type Department Care Team (Late st Contact Info) Description 07/28/2025 Orders Only GENERIC EXTERNAL DATA DEPARTMENT Provider, Generic External Data Social History Tobacco Use Types Packs/Day Years Used Date Smoking Tobacco: Never Passive Smoke Exposure: Never Smokeless Tobacco: Never Alcohol Use Standard Drinks/Week Comments Never 0 (1 standard drink = 0.6 oz pur e alcohol) Housing Stability Answer Date Recorded What is your housing situation today? I have bryannabeni gil 12/08/[address] you [...] on file documented as of this encounter Procedures Procedure Name Priority Date/Time Associated Diagnosis Comments GLUCOSE, WHOLE BLOOD Routine 07/28/2025 8:50 AM EDT documented in this encounter Results * (ABNORMAL) Glucose, Whole Blood (07/28/2025 8:50 AM EDT) Glucose, Whole Blood 144(H) 60 - 115 mg/dL [facility] Comment:METER #: [id number] 0Testing performed in the Endocrinology Department [address], [address], [facility]. 07/28/2025 8:50 AM EDT 07/28/2025 8:53 AM EDT us Generic External Data Provider LAB BLOOD ORDERAB LES Final Result [facility] [address] [place] [phone] documented in this encounter Visit Diagnoses Not on filedocumented in this encounter Care Teams Best Second Jobs Relationship Specialty Start Date End Date Keely Wilburn MD 230 [place] [address] PCP - General Family Medicine 10/27/19 [employer] 08/06/24 documented as of this encounter
--- OUTSIDE RECORDS SUMMARY | 2025-07-28 10:26 | XMS_ITS | Encounter Summary ---
Author Organization [employer] Address 75 [facility] 7t [place] [address] Care Team Providers Care Criminalist Technician Name Role Phone Keely Wilburn MD Primary Care Provider + Reason for Visit * Reason Comments Med Refill Encounter Details Date Type Department Care Team (Late st Contact Info) Description 08/11/2024 Refill [facility] MEDICINE 230 [place], [place] [phone] Keely Wilburn MD 230 [place], [place] [phone] Benign paroxysmal positional vertigo, unspecified laterality Social [...] laterality documented in this encounter Care Teams Criminalist Technician Relationship Specialty Start Date End Date Keely Wilburn MD [address] [place] [address] PCP - General Family Medicine 10/27/19 [employer] 08/06/24 documented as of this encounter
--- OUTSIDE RECORDS SUMMARY | 2025-07-28 10:26 | XMS_ITS | Encounter Summary ---
Author Organization [employer] Address 75 [facility] 7t [place] [address] Care Team Providers Care Senior Android Developer Name Role Phone Keely Wilburn MD Primary Care Provider + Reason for Visit * Reason Comments Med Refill Encounter Details Date Type Department Care Team (Late st Contact Info) Description 07/22/2025 Refill [facility] MEDICINE 230 [place], [place] [phone] Keely Wilburn MD 230 [place], [place] [phone] Social History Tobacco Use Types Packs/Day Years [...] filedocumented in this encounter Care Teams Senior Android Developer Relationship Specialty Start Date End Date Keely Wilburn MD [address] [place] [address] PCP - General Family Medicine 10/27/19 [employer] 08/06/24 documented as of this encounter
--- OUTSIDE RECORDS SUMMARY | 2025-07-28 10:26 | XMS_ITS | Encounter Summary ---
Author Organization [employer] Address 75 [facility] 7t [place] [address] Care Team Providers Care Show Design Supervisor Name Role Phone Keely Wilburn MD Primary Care Provider + Reason for Visit * Reason Comments Med Refill Encounter Details Date Type Department Care Team (Late st Contact Info) Description 08/18/2024 Refill [facility] MEDICINE 230 [place], [place] [phone] Keely Wilburn MD 230 [place], [place] [phone] Benign paroxysmal positional vertigo, unspecified laterality; Type 2 diabetes mellitus with other specified complication, unspecified whether intermediate manager insulin use ([facility]) Social History Tobacco [...] mellitus with other specified complication, unspecified whether correction insulin use ([facility]) documented in this encounter Care Teams Show Design Supervisor Relationship Specialty Start Date End Date Keely Wilburn MD 230 [place] [address] PCP - General Family Medicine 10/27/19 [employer] 08/06/24 documented as of this encounter
--- OUTSIDE RECORDS SUMMARY | 2025-07-28 10:26 | XMS_ITS | Encounter Summary ---
Author Organization [employer] Address 75 [facility] 7t [place] [address] Care Team Providers Care Stock Worker And Deliverer Name Role Phone Keely Wilburn MD Primary Care Provider + Reason for Visit * Reason Comments Med Refill Encounter Details Date Type Department Care Team (Late st Contact Info) Description 08/20/2024 Refill [facility] MEDICINE 230 [place], [place] [phone] Keely Wilburn MD 230 [place], [place] [phone] Benign paroxysmal positional vertigo, unspecified laterality; Type 2 diabetes mellitus with other specified complication, unspecified whether termite control service representative insulin use ([facility]) Social History Tobacco Use Types [...] mellitus with other specified complication, unspecified whether senior living insulin use ([facility]) documented in this encounter Care Teams Stock Worker And Deliverer Relationship Specialty Start Date End Date Keely Wilburn MD 230 [place] [address] PCP - General Family Medicine 10/27/19 [employer] 08/06/24 documented as of this encounter
--- OUTSIDE RECORDS SUMMARY | 2025-07-28 10:26 | XMS_ITS | Encounter Summary ---
Author Organization [employer] Address 75 [facility] 7t [place] [address] Care Team Providers Care Facilities Maintenance Engineer Name Role Phone Keely Wilburn MD Primary Care Provider + Reason for Visit * Reason Comments Med Refill Encounter Details Date Type Department Care Team (Late st Contact Info) Description 08/13/2024 Refill [facility] MEDICINE 230 [place], [place] [phone] Keely Wilburn MD 230 [place], [place] [phone] Benign paroxysmal positional vertigo, unspecified laterality; Type 2 diabetes mellitus with other specified complication, unspecified whether long term care social worker insulin use ([facility]) Social History Tobacco Use Types Packs/Day [...] mellitus with other specified complication, unspecified whether [facility] insulin use ([facility]) documented in this encounter Care Teams Facilities Maintenance Engineer Relationship Specialty Start Date End Date Keely Wilburn MD 230 [place] [address] PCP - General Family Medicine 10/27/19 [employer] 08/06/24 documented as of this encounter
== END 2025-07-28 09:04 | disposition home or self-care (01) ==
LOC: HO.ENCR 08:39
PROVIDERS: PCP Internal Medicine; Visit Provider Physician Assistant Medical
DX: E11.29 Type 2 diabetes mellitus with other diabetic kidney complication (principal); E66.813 Obesity, class 3

== ENCOUNTER → 2025-07-28 08:38 | Outpatient (BNVA) | payer OTHER, SELFPAY | PROVIDERS: PCP Internal Medicine; Visit Provider Physician Assistant Medical | DX: E11.29 Type 2 diabetes mellitus with other diabetic kidney complication (principal); E66.813 Obesity, class 3 | CPT/HCPCS: 82947; 99212 ==

== ENCOUNTER 2025-08-04 09:50 | Outpatient (AMB) | payer OTHER, SELFPAY ==
--- OUTSIDE RECORDS SUMMARY | 2024-02-06 03:30 | XMS_ITS ---
Author Organization [facility] Address [address] [place] [id number] Care Team Providers Care Casing Crew Pusher Name Role Phone Keely Wilburn MD Primary Care Provider Unavail able Rod Arthur Unavailable [phone] Mathew Boss Unavailable Unavailable REASON FOR VISIT screening colon Encounters Encounter Location Date Provider Diagnosis [facility] Outpatient [address] [place] [id number] 02/06/2024 Rod Arthur Encounter for scre ening [...] Notes * DAHIANA SHEARERKEELYDOB:1950 (75 yo F)Acc No.[id number]:02/06/2024 COLON WITH MAC Patient: EDILBERTO DAVEY Provider: Jerad Arthur MD :1950 A ge:73 Y S ex:Female Date:02/06/2024 Address:[address] [place], [place] [id number] Pcp:Keely Wilburn MD Subjective: * Chief Complaints: [...] 02/06/2024 Generated for Ashley becerra/Stewart/Maciitting on: 0 08/04/2025 11:50 AM EDT
--- NOTE | 2025-08-04 09:54 | MHC.OFFVIS ---
Intake Visit Reasons: Follow Up Leg Pain Intake Note: Patient has swelling and pain in both legs but states the right leg is worse. Patient uses a walker to ambulate. Patient had a right leg venaseal in December 2024, no improvement since. Accompanied by: Daughter Allergies penicillin G (PENICILLIN G) Allergy (Mild, Verified 08/04/25 09:57) PRURITIS amoxicillin Allergy (Unknown, Verified 08/04/25 09:57) rash, itching aspirin Adverse Reaction (Verified 08/04/25 09:57) Hives HPI HPI Follow Up Leg Pain: Details: The patient is a 75-year-old female presenting with persistent bilateral leg swelling and pain in the right leg. The swelling has been ongoing despite previous interventions, including procedures on both legs in 2021, with the most recent procedure on the right leg. The patient reports that the swelling has not improved and is associated with significant discomfort, particularly in the right leg. Compression stockings have been used as a preventative measure, but the patient requires a new prescription due to wear and insurance coverage issues. The patient has been unable to wear the stockings consistently due to these issues, which may have contributed to the persistent swelling. 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 Pneumonia due to COVID-19 virus Postmenopausal bleeding Osteopenia Obesity Microalbuminuria Medial epicondylitis Lateral epicondylitis of right elbow Injury of face Edema, lower extremity DJD of shoulder Chronic right shoulder pain Cellulitis, toe Arthritis of knee Abnormal gait Asthma Anemia Stroke Cataract of both eyes CKD (chronic kidney disease) Vitamin D deficiency HLD (hyperlipidemia) HTN (hypertension) T2DM (type 2 diabetes mellitus) Diabetes Surgical History H/O: hysterectomy Hx of colonoscopy History of temporal artery biopsy Hx of elbow surgery History of right shoulder fracture Family History Father No problems noted. Mother No problems noted. Daughter Arthritis Daughter Arthritis Daughter Arthritis Social History Household Members: Children Housing: Apartment Are you a primary care navigator to a significant other at home: No Do you presently have visiting nurse or other home services: Yes Alcohol intake: never Patient Tobacco Use Status: Never used Tobacco service: No Current occupational status: disabled Review of Systems Const All systems reviewed & are unremarkable except as noted in HPI and below Reports no additional complaints ENT Reports Normal hearing present Card Denies chest pain, Denies chest pain at rest, Denies chest pain with activity and Denies pedal edema Resp Denies cough GI Denies abdominal pain Musc Denies abnormal gait, Denies muscle cramps and Denies radiating pain into limb Skin/Breast Denies skin ulcer and Denies wounds Neuro Reports Normal hearing present and Denies abnormal gait Psych Reports no additional complaints Physical Exam Const General: cooperative, healthy appearing and comfortable Orientation/consciousness: oriented to person, oriented to place and oriented to time HEENT Head: Yes normal to inspection Neck Neck: Yes normal visual inspection Carotids: no bruits Chest Chest palpation & inspection: normal inspection of the chest Resp Effort & Inspection: normal respiratory effort and able to speak in complete sentences Auscultation: clear to auscultation bilaterally, no crackles, no rales, no rhonchi and no wheezes Cardio Rate: regular rate Rhythm: regular rhythm Heart sounds: S1 normal heart sound present and S2 normal heart sound present Bruits: no carotid bruits Peripheral pulses: Peripheral pulses 2+ throughout GI Inspection: Yes normal to inspection Skin Wounds: no wounds Hair: normal Neuro General: oriented to person, oriented to place and oriented to time Cranial nerves: Yes CN's II-XII intact bilaterally and Yes Normal hearing present Cognition (Neuro): normal cognition Motor exam (neuro): 5/5 motor strength present throughout Extrem Other: venous exam: No significant superficial varicosities or spider telangiectasias, minimal edema General: No clubbing, No cyanosis and No edema Psych Appearance: grossly normal Mental Status: mental status grossly normal Speech and movement: Normal speech and movement present Assessment & Plan Assessment & Plan (1) Varicose veins of left lower extremity with inflammation: Comment: 02/17/2022 - left great saphenous vein radiofrequency ablation 03/17/2022 - left leg microphlebectomy Code(s): I83.12 - Varicose veins of left lower extremity with inflammation Category: Medical Plan: See below (2) Varicose veins of right lower extremity with inflammation: Comment: 12/30/2021 - right great saphenous vein radiofrequency ablation 01/02/2025 - right great saphenous vein Cyanoacralate ablation Code(s): I83.11 - Varicose veins of right lower extremity with inflammation Category: Medical Plan: I discussed with the patient the importance of wearing compression stockings to manage her leg swelling and the plan to reassess in a few months. We reviewed the lack of infection and the need for consistent use of the stockings to prevent further complications. Coding Level of Care Code Est Pt Level 3 (91730) Diagnoses Varicose veins of left lower extremity with inflammation I83.12 Varicose veins of right lower extremity with inflammation I83.11
--- OUTSIDE RECORDS SUMMARY | 2025-08-04 11:50 | XMS_ITS | Encounter Summary ---
Author Organization [facility] Address [address] [place] [address] Phone Care Team Providers Care Lan Support Specialist Name Role Phone Keely Wilburn MD Primary Care Provider + [phone] Encounter Details Date Type Department Care Team (Late Contact Info) Description 09/29/2024 Documentation Only [facility] [address] [place] [address] Juju Avila [address] [place] [phone] Social History Tobacco Use Types Packs/Day Years [...] [facility] [address] [place] [address] Terrance Garcia MD [address] [place] [address] [place] [address] documented as of this encounter Visit Diagnoses Not on filedocumented in this encounter Care Teams Lan Support Specialist Relationship Specialty Start Date End Date Keely Wilburn MD [address] [place] [address] PCP - General Internal Medicine 02/11/20 documented as of this encounter
--- OUTSIDE RECORDS SUMMARY | 2025-08-04 11:50 | XMS_ITS | Clinical Summary ---
Author Organization [facility] [employer], Address [address] [place] [address] [place] [address] Phone Care Team Providers Care Sales Representative Consultant Name Role Phone Keely Wilburn MD Primary Care Provider + [phone] Allergies Active Allergy Reactions Criticality Noted Date [...] NEEDED 0 Active Lancets (ONETOUCH DELICA PLUS [id number]) misc USE SEG N LO INDICADO PAN [...] Visit [facility] [employer], [address] [facility] [place] [address] Terrance Garcia MD [address] [facility] [place] [address] Health Maintenance [...] PM EST) Hemoglobin A1C 6.8(H) (4.0-5.6) % [facility] Comment: MONITORING: In known diabetic patients, hemoglobin A1c targets should be discussed with health care provider. DIAGNOSTIC USE: The [place] Diabetes Association (ADA) and the World Health [...] Supplement 1 Testing performed or reported by [facility], a Service of [facility], [address] [place] [address] Luis Andino MD, Undergraduate Intern [facility]# [id number] Blood specimen (specimen) Venous blood / Unknown 09/28/2022 2:01 PM EST 09/28/2022 2:03 PM EST us Terrance Garcia MD LAB BLOOD ORDERABLES Final Re sult [facility] from Last 3 Months or Most Recently Relevant to Health Maintenance [place] [address] [place] [address] [facility] Care Dual SNP ([id number]) [place] [id number] Care Teams Sales Representative Consultant Relationship Specialty Start Date End Date Keely Wilburn MD [address] [place] [address] PCP - General Internal Medicine 02/11/20
--- OUTSIDE RECORDS SUMMARY | 2025-08-04 11:51 | XMS_ITS | Encounter Summary ---
Author Organization [employer] Address 75 [facility] 7t [place] [address] Care Team Providers Care Acid Crane Operator Name Role Phone Keely Wilburn MD Primary Care Provider + Reason for Visit * Reason Onset Date Comments Hospital Follow-up 12/08/2024 Encounter Details Date Type Department Care Team ([facility] st Contact Info) Description 12/08/2024 Telephone [facility] MEDICINE 230 [place], [place] [phone] Keely Wilburn MD 230 [place], [place] [phone] Hospital Follow-up Social History Tobacco Use Types [...] pt daughter requesting a HDF appt. Hospital: [place], [place] Date of admission: 12/02 Discharge date: 12/05 Diagnosed: Diarrhea, Vomiting, Abdominal Pain, Chest Pain, Dizziness *Send message to [facility] Clinical Care Coordinators documented in this encounter Plan of Treatment Not on file documented as of this encounter Visit Diagnoses Not on filedocumented in this encounter Care Teams Acid Crane Operator Relationship Specialty Start Date End Date Keely Wilburn MD [address] [place] [address] PCP - General Family Medicine 10/27/19 [employer] 08/06/24 documented as of this encounter
--- OUTSIDE RECORDS SUMMARY | 2025-08-04 11:51 | XMS_ITS | Encounter Summary ---
Author Organization [employer] Address 75 [facility] 7t [place] [address] Care Team Providers Care Dust Mop Maker Name Role Phone Keely Wilburn MD Primary Care Provider + Reason for Visit * Reason Comments Med Refill Encounter Details Date Type Department Care Team (Late st Contact Info) Description 01/25/2025 Refill [facility] MEDICINE 230 [place], [place] [phone] Keely Wilburn MD 230 [place], [place] [phone] Social History Tobacco Use Types Packs/Day Years [...] on filedocumented in this encounter Care Teams Dust Mop Maker Relationship Specialty Start Date End Date Keely Wilburn MD [address] [place] [phone] PCP - General Family Medicine 10/27/19 [employer] 08/06/24 documented as of this encounter
--- OUTSIDE RECORDS SUMMARY | 2025-08-04 11:51 | XMS_ITS | Clinical Summary ---
Author Organization [address] [place] [address] Address [address] [place] [address] Phone Care Team Providers Care Sign Artist Name Role Phone Keely Wilburn MD Primary [...] DR capsule 1 Active DIABETIC SUPPLIES, [place]. [facility] [place] ONE TOUCH BASIC STRIPS Active lancets lancets [...] 10/03/2024 Diabetes mellitus type 2, un complicated (CMS/[facility] V24, CMS/[facility]ER[facility] V28) 10/03/2024 Hypertension 10/03/2024 Closed fracture of lower end of humerus 08/11/20 10 Overview (10/03/2024): IMO update Encounters Date Type Department Care Team Description 07/02/2025 9:00 AM EDT Office Visit Orthopedic Surgery - [address] [phone] Cr Bolton DPM Controlled type 2 diabetes with neuropathy (CMS/[facility] V24, CMS/[facility]ER[facility] V28) (Primary Dx); PVD (peripheral vascular disease) ([facility] V24); Arthritis of both feet; Tinea pedis of both feet; Dermatophytosis, nail from Last 3 Months Surgical History Surgery Date Site/Laterality Comments OTHER SURGICAL HISTORY PROCEDURE: DENIES PREVIOUS SURGERY OTHER SURGICAL HISTORY PROCEDURE: DC LIG/TRNSXJ FLP TUBE ABDL/VAG APPR UNI/BI Medical History Medical History Date Comments Asthma DX:Asthma High blood pressure DX:High bloo d pressure Anemia DX:Anemia Anxiety state DX:Anxiety state Hypertension DX:Hypertension Hypertension DX:Hypertension Diabetes mellitus type 2, un complicated ([facility]/HCC V24, [facility]/HCC V28) DX:Diabetes mellitus type 2 , uncomplicated ([facility]) Esophageal reflux DX:Esophageal reflux Hyperlipidemia DX:Hyperlipidemi a [...] AM EST Office Visit Orthopedic Surgery - [place] [address] [phone] Cr Bolton, LORENA [address] [address] Health Maintenance Due Date Last Done Comments [...] MAINTENANCE Final Result * Colonoscopy (09/12/2018) Pathologist [facility] Colonoscopy no interpretation , abstracted Anatomical Region Laterality Modality Other [facility] Provider HEALTH MAINTENANCE Final Result * (ABNORMAL) Hemoglobin A1c (07/12/2018) Pathologist [facility] Hemoglobin A1C 6.5(A) 4.0 - 6.0 % Blood Venous blood specimen / Unknown Historical Provider LAB BLOOD ORDERABLES Meka l Result from Last 3 Months or Most Recently Relevant to Health Maintenance Insurance [facility] MEDICARE Member Subscriber Plan / Payer (Ef fective 2024-Present) Name:Adrianne Landeros Relation to Subscriber:Self Name:Adrianne Landeros Payer ID:[id number] Group ID:[id number] Type:Not on file Address: [facility] [address] [address] Advance Directives Documents on File Type Date Recorded Patient Pharmacy Tech Customer Service Expl anation Health Care Decision (hx) 04/22/2018 [...] (hx) 04/22/2018 AD BECKWITH DIRECTIVE Care Teams Sign Artist Relationship Specialty Start Date End Date Keely Wilburn MD [address] [place] [phone] PCP - General 03/01/22
--- OUTSIDE RECORDS SUMMARY | 2025-08-04 11:51 | XMS_ITS | Encounter Summary ---
Author Organization [facility] Address [address] [place] [address] Phone Care Team Providers Care Computer Support Analyst Name Role Phone Keely Wilburn MD Primary Care Provider + [phone] Encounter Details Date Type Department Care Team (Late Contact Info) Description 03/18/2024 Documentation Only [facility] [address] [place] [address] Juju Avila [address] [place] [phone] Social History Tobacco Use Types Packs/Day Years [...] Visit [facility] [address] [place] [address] Terrance Garcia MD [address] [place] [address] [place] [address] documented as of this encounter Visit Diagnoses Not on filedocumented in this encounter Care Teams Computer Support Analyst Relationship Specialty Start Date End Date Keely Wilburn MD [address] [place] [phone] PCP - General Internal Medicine 02/11/20 documented as of this encounter
--- OUTSIDE RECORDS SUMMARY | 2025-08-04 11:51 | XMS_ITS | Encounter Summary ---
Author Organization [employer] Address [address] [facility] 7t [place] [address] Care Team Providers Care Pourer Buggy Ladle Name Role Phone Keely Wilburn MD Primary Care Provider + Reason for Visit * Reason Onset Date Comments Med Refill 05/07/2025 Encounter Details Date Type Department Care Team ([facility] st Contact Info) Description 05/07/2025 Telephone [facility] MEDICINE [address] [place], [place] [phone] Keely Wilburn MD [address] [place], [place] [phone] Med Refill Social History Tobacco Use Types [...] 0.6 MG tablet To be sent to: [facility]/pharmacy #[id number] documented in this encounter Plan of Treatment Not on file documented as of this encounter Visit Diagnoses Not on filedocumented in this encounter Care Teams Pourer Buggy Ladle Relationship Specialty Start Date End Date Keely Wilburn MD [address] [place] [address] PCP - General Family Medicine 10/27/19 [facility] 08/06/24 documented as of this encounter
--- OUTSIDE RECORDS SUMMARY | 2025-08-04 11:51 | XMS_ITS | Encounter Summary ---
Author Organization [facility] Address [address] [place] [address] Phone Care Team Providers Care Deicer Repairer Pneumatic Name Role Phone Keely Wilburn MD Primary Care Provider + [phone] Encounter Details Date Type Department Care Team (Late Contact Info) Description 03/26/2025 Documentation Only [facility] [address] [place] [address] Juju Avila [address] [place] [phone] Social History Tobacco Use Types Packs/Day Years [...] [facility] [address] [place] [address] Terrance Garcia MD [address] [place] [address] [place] [address] documented as of this encounter Visit Diagnoses Not on filedocumented in this encounter Care Teams Deicer Repairer Pneumatic Relationship Specialty Start Date End Date Keely Wilburn MD [address] [place] [phone] PCP - General Internal Medicine 02/11/20 documented as of this encounter
--- OUTSIDE RECORDS SUMMARY | 2025-08-04 11:51 | XMS_ITS | Encounter Summary ---
Author Organization [facility] Address [address] [place] [address] Phone Care Team Providers Care Helium Arc Welder Name Role Phone Keely Wilburn MD Primary Care Provider + [phone] Encounter Details Date Type Department Care Team (Late Contact Info) Description 03/18/2024 Documentation Only [facility] [address] [place] [address] Juju Avila [address] [place] [phone] Social History Tobacco Use Types Packs/Day Years [...] [facility] [address] [place] [address] Terrance Garcia MD [address] [place] [address] [place] [address] documented as of this encounter Visit Diagnoses Not on filedocumented in this encounter Care Teams Helium Arc Welder Relationship Specialty Start Date End Date Keely Wilburn MD [address] [place] [phone] PCP - General Internal Medicine 02/11/20 documented as of this encounter
--- OUTSIDE RECORDS SUMMARY | 2025-08-04 11:51 | XMS_ITS | Encounter Summary ---
Author Organization [facility] Address [address] [place] [address] Phone Care Team Providers Care Autopsy Assistant Name Role Phone Keely Wilburn MD Primary Care Provider + [phone] Encounter Details Date Type Department Care Team (Late Contact Info) Description 03/18/2024 Documentation Only [facility] [address] [place] [address] Juju Avila [address] [place] [phone] Social History Tobacco Use Types Packs/Day Years [...] [facility] [address] [place] [place] [address] Terrance Garcia MD [address] [place] [address] [place] [address] documented as of this encounter Visit Diagnoses Not on filedocumented in this encounter Care Teams Autopsy Assistant Relationship Specialty Start Date End Date Keely Wilburn MD [address] [place] [phone] PCP - General Internal Medicine 02/11/20 documented as of this encounter
--- OUTSIDE RECORDS SUMMARY | 2025-08-04 11:51 | XMS_ITS | Encounter Summary ---
Author Organization [employer] Address [address] [facility] 7t [place] [address] Care Team Providers Care Special Events Assistant Name Role Phone Keely Wilburn MD Primary Care Provider + Reason for Visit * Reason Comments Med Refill Encounter Details Date Type Department Care Team (Late st Contact Info) Description 08/02/2025 Refill [facility] MED[facility]INE [address] [place], [place] [phone] Keely Wilburn MD [address] [place], [place] [phone] Social History Tobacco Use Types Packs/Day Years [...] filedocumented in this encounter Care Teams Special Events Assistant Relationship Specialty Start Date End Date Keely Wilburn MD [address] [place] [phone] PCP - General Family Medicine 10/27/19 [employer] 08/06/24 documented as of this encounter
--- OUTSIDE RECORDS SUMMARY | 2025-08-04 11:51 | XMS_ITS | Encounter Summary ---
Author Organization [facility] Address [address] [place] [address] Phone Care Team Providers Care Gas Regulator Repairer Helper Name Role Phone Keely Wilburn MD Primary Care Provider + [phone] Encounter Details Date Type Department Care Team (Late Contact Info) Description 03/18/2024 Documentation Only [facility] [address] [place] [address] Juju Avila [address] [place] [phone] Social History Tobacco Use Types Packs/Day Years [...] Visit [facility] [address] [place] [address] Terrance Garcia MD [address] [place] [address] [place] [address] documented as of this encounter Visit Diagnoses Not on filedocumented in this encounter Care Teams Gas Regulator Repairer Helper Relationship Specialty Start Date End Date Keely Wilburn MD [address] [place] [address] PCP - General Internal Medicine 02/11/20 documented as of this encounter
--- OUTSIDE RECORDS SUMMARY | 2025-08-04 11:51 | XMS_ITS | Encounter Summary ---
Author Organization [employer] Address [address] [facility] 7t [place] [address] Care Team Providers Care Line Maintenance Technician Name Role Phone Keely Wilburn MD Primary Care Provider + Reason for Visit * Reason Comments Med Change Request Encounter Details Date Type Department Care Team ([facility] st Contact Info) Description 11/06/2023 Refill [facility] MEDICINE [address] [place], [place] [phone] Keely Wilburn MD [address] [place], [place] [phone] Osteopenia of neck of femur, unspecified laterality [...] laterality documented in this encounter Care Teams Line Maintenance Technician Relationship Specialty Start Date End Date Keely Wilburn MD [address] [place] [address] PCP - General Family Medicine 10/27/19 [facility] 08/06/24 documented as of this encounter
--- OUTSIDE RECORDS SUMMARY | 2025-08-04 11:51 | XMS_ITS | Encounter Summary ---
Author Organization [facility] [place], Address [address] [place] [address] Phone Care Team Providers Care Frame Operator Name Role Phone Keely Wilburn MD Primary Care Provider + [phone] Encounter Details Date Type Department Care Team (Late Contact Info) Description 09/02/2024 Documentation Only [facility] [address] [place] [address] Jaz Jane [place] [address] [place] [phone] Social History Tobacco Use Types Packs/Day Years [...] [facility] [address] [place] [address] Terrance Garcia MD [address] [place] [address] [place] [address] documented as of this encounter Visit Diagnoses Not on filedocumented in this encounter Care Teams Frame Operator Relationship Specialty Start Date End Date Keely Wilburn MD [address] [place] [address] PCP - General Internal Medicine 02/11/20 documented as of this encounter
--- OUTSIDE RECORDS SUMMARY | 2025-08-04 11:51 | XMS_ITS | Encounter Summary ---
Author Organization [employer] Address [address] [facility] 7t [place] [address] Care Team Providers Care Beauty Shop Manager Name Role Phone Keely Wilburn MD Primary Care Provider + Reason for Visit * Reason Onset Date Comments Referral 12/08/2024 order 12/08/2024 Encounter Details Date Type Department Care Team (Late st Contact Info) Description 12/08/2024 Telephone [facility] MEDICINE [address] [place], [place] [phone] Keely Wilburn MD [address] [place], [place] [phone] Referral; order Social History Tobacco Use Types [...] more info provided. Any questions contact Ashlyn French documented in this encounter Plan of Treatment Not on file documented as of this encounter Visit Diagnoses Not on filedocumented in this encounter Care Teams Beauty Shop Manager Relationship Specialty Start Date End Date Keely Wilburn MD [address] [place] [address] PCP - General Family Medicine 10/27/19 [facility] 08/06/24 documented as of this encounter
--- OUTSIDE RECORDS SUMMARY | 2025-08-04 11:51 | XMS_ITS | Encounter Summary ---
Author Organization [facility] [place], Address [address] [place] [address] Phone Care Team Providers Care Manager Pool Name Role Phone Keeyl Wilburn MD Primary Care Provider + [phone] Encounter Details Date Type Department Care Team (Late Contact Info) Description 08/05/2024 Documentation Only [facility] [address] [place] [address] Jaz Jane [place] [address] [place] [phone] Social History Tobacco Use Types Packs/Day Years [...] Visit [facility] [address] [place] [address] Terrance Garcia MD [address] [place] [address] [place] [address] documented as of this encounter Visit Diagnoses Not on filedocumented in this encounter Care Teams Manager Pool Relationship Specialty Start Date End Date Keely Wilburn MD [address] [place] [address] PCP - General Internal Medicine 02/11/20 documented as of this encounter
--- OUTSIDE RECORDS SUMMARY | 2025-08-04 11:51 | XMS_ITS | Clinical Summary ---
Author Organization [employer] Address [address] [facility] 7t [place] [address] Care Team Providers Care Home Office Claims Examiner Name Role Phone Keely Wilburn MD Primary [...] tablet 11 Active Lancets (OneTouch Delica Plus Bkyiol48B) miscIndications :Type 2 diabetes mellitus with diabetic nephropathy, with long-term current use of insulin ([facility]) USE TO TEST BLOOD SUGAR [...] Continuous Glucose Sensor (FreeStyle Kelly 2 Sensor) [facility] Use as directed Active ketoconazole (NIZOral) 2 [...] hyperglycemia, with long-term current use of insulin ([facility]) Inject 1.5 mg under the skin 1 (one) time per week. 2 mL 5 025 Active cholecalciferol (Vitamin D-3) 1.25 MG (63111 UT) capsule TAKE 1 CAPSULE BY MOUTH ONCE WEEKLY 12 capsule 1 025 Active Lantus SoloStar 100 UNIT/ML penIndications: Type 2 diabetes mellitus with other specified complication, unspecified whether terminal worker insulin use ([facility]) INJECT 18 UNITS SUBCUTANEOUSLY ONCE [...] daughter who agreed to bring patient to [facility] for emergent US to rule out [...] scan abdomen and pelvis on 12/02/2024 at [facility] Assessment & Plan (06/09/2025 10:46 AM EDT): [...] scan abdomen and pelvis on 12/02/2024 at [facility] Assessment & Plan (01/15/2025 3:49 PM EST): See pancreatic lesions above, will try to expedite MRI of the abdomen Venous ulcer of left leg 07/31/2024 Assessment & Plan (07/31/2024 2:34 PM EDT): Ulcer dressing done by RN, see above. Schizoaffective disorder, depressive type 2023 Assessment & Plan (06/09/2025 10:47 AM EDT): She is doing well, she FU at [facility] by [facility] psych prescriber and Kathleen Li [...] 05/24/2023 Overview (02/07/2024): Colonoscopy on 02/06/24 at [facility] Assessment & Plan (07/28/2023 7:53 PM EDT): [...] knees significant risk of fall, had a APPLICATION DEVELOPMENT CONSULTANT for assistance ADLs. Needs assistance and reminders [...] + Lantus 18 units and follow-up with customer engineer, I told him to address change of GLP to customer engineer to the 1 that has a better [...] requested refill of Trulicity be sent to [facility] as she had difficulty picking it up at local [facility] due to supply issues Assessment & Plan [...] Plan (05/24/2023 11:18 AM EDT): r/o hypoglycemia APPLICATION DEVELOPMENT CONSULTANT will monitor symptoms of dizziness and pt [...] Encounters Date Type Department Care Team Description 08/02/2025 Refill [facility] [address] [place] [address] Keely Wilburn MD 07/28/2025 Orders Only GENERIC EXTERNAL DATA DEPARTMENT Provider, Generic External Data 07/22/2025 Refill [facility] [address] [place] [address] Keely Wilburn MD 07/19/2025 Refill [facility] [address] [place] [address] Keely Wilburn MD 07/10/2025 Refill [facility] [address] [place] [address] Keely Wilburn MD Moderate persistent asthma, unspecified whether complicated; Viral upper respiratory tract infection 06/30/2025 Orders Only GENERIC EXTERNAL DATA DEPARTMENT Provider, Generic External Data 06/11/2025 Telephone [facility] [address] [place] [phone] Keely Wilburn MD DME Compression stockings 06/09/2025 9:45 AM EDT Office Visit [facility] [address] [place] [address] Keely Wilburn MD Type 2 diabetes mellitus with diabetic nephropathy, with long-term current use of insulin ([facility]) (Primary Dx); Class 2 severe obesity due to excess calories with serious comorbidity and body mass index (BMI) of 37.0 to 37.9 in adult ([facility]); Vascular insufficiency; Primary hypertension; Pancreatic lesion; Schizoaffective disorder, depressive type ([facility]); Dietary counseling; Exercise counseling 06/09/2025 Travel 06/05/2025 Telephone [facility] [address] [place] [phone] Keely Wilburn MD chart prep 06/01/2025 Patient Outreach [address] [phone] Keely Wilburn MD Pre-visit Planning ([facility] screening completed on 12/08/2024) 05/17/2025 Refill [facility] [address] [place] [address] [phone] Keely Wilburn MD Type 2 diabetes mellitus with other specified complication, unspecified whether terminal worker insulin use ([facility]) 05/07/[address] [phone] Keely Wilburn MD Med Refill from Last [...] nephropathy, with long-term current use of insulin ([facility]) POCT GLUCOSE Routine 06/09/2025 10:04 AM EDT [...] hyperglycemia, with long-term current use of insulin ([facility]) HM COLONOSCOPY Routine 02/06/2024 ZZZ HISTORICAL OCCULT BLOOD STOOL X3 Routine 11/23/2019 3:00 PM EST from Last 3 Months or Most Recently Relevant to Health Maintenance Results * (ABNORMAL) Glucose, Whole Blood (07/28/2025 8:50 AM EDT) Only the most recent of2 resultswithin the time period is included. Glucose, Whole Blood 144(H) 60 - 115 mg/dL [facility] Comment:METER #: [id number] 0Testing performed in the Endocrinology Department [address] , [address], [facility]. 07/28/2025 8:50 AM EDT 07/28/2025 8:53 AM EDT us Generic External Data Provider LAB BLOOD ORDERAB LES Final Result [facility] [address] [place] [address] [phone] * (ABNORMAL) POCT HGB A1C (06/09/2025 10:07 AM EDT) Hemoglobin A1C 6.6(A) 4.0 - 5.7 % QC Media Lot # [id number] Lot# Expiration Date Blood 06/09/2025 10:0 7 AM EDT us Keely Wilburn MD POINT OF CARE TEST ENTER /EDIT ORDERABLES Final Result * POCT Glucose (06/09/2025 10:04 AM EDT) Glucose Blood, POC 116 60 - 200 mg/dL QC Media Lot # [id number] Lot# Expiration Date 72 Blood Capillary blood specimen / Unknown 06/09/2025 10:04 AM EDT Keely Wilburn MD POINT OF CARE TEST ENTER /EDIT ORDERABLES Final Result * BI Mammogram Screening Tomosynthesis Bilateral (10/07/2024 8:50 AM EST) Anatomical Region Laterality Modality Breast Bilateral Mammography 10/07/2024 8:50 AM EST Narrative 10/16/2024 9:41 AM EST [facility] [address] [place] [address] Mammography Report Signed Patient: Adrianne Landeros MR#: [id number] : 1950 Acct:[id number] Age/Sex: 74 / F ADM Date: 10/07/24 Loc: HO.MAMMO Attending Dr: Keely Wilburn MD Ordering Physician: Keely Wilburn MD Results: 1Ne gative Date of Service: 10/07/24 Follow Up: 1 Year From [facility] Mammogram Procedure(s): MM tomosynthesis screening BI Accession Number(s): [id number] cc: Keely Wilburn MD EXAMINATION: MM SCREENING [...] DO 10/16/2024 09:38 AM EST Dictated By: Tyminski,Marylou DO Signed By: <Electronically signed by Marylou Goldstein DO in OV> 10/16/24937 DD/ TD/TT: 10/07/24904 Director Of Solutions Architecture: Procedure Note Donotuseinterpreter, Image - 10/16/20[facility] [address] [place], [place] [address] Mammography Report Signed Patient: Adrianne LanderosMR#: [id number] : 8Acct:[id number] Age/Sex: 74 / FADM Date: 10/07/24 Loc: HO.MAMMO Attending Dr: Keely Wilburn MD Ordering Physician: Keely Wilburn MDResults: 1Ne gative Date of Service: 10/07/24Follow Up: 1 Year From Orig inal Mammogram Procedure(s): MM tomosynthesis screening BI Accession Number(s): [id number] cc: Keely Wilburn MD EXAMINATION: MM SCREENING [...] Goldstein DO in OV> 10/16/24937 DD/ TD/TT: 10/07/24 0905 Director Of Solutions Architecture: us Keely Wilburn MD IMG BI PROCEDURES Edited Result - Final * (ABNORMAL) Lipid Panel with Reflex to Direct LDL (08/04/2024 9:55 AM EDT) Triglycerides 174(H) <150 mg/dL [facility] Comment:Desirable Triglyceri de: less than 150 mg/dLBorderline High Triglyceride 150-199 mg/dLHigh Triglyceride: 200-499 mg/dLVery High Triglyceride: greater than or equal to 5OO mg/dL Cholesterol 145 <200 mg/dL [facility] Comment:Desirable Cholestero l: less than 200 mg/dLBorderline High Cholesterol: 200-239 mg/dLHigh Cholesterol: greater than 239 mg/dL LDL Cholesterol Calculated 68 <100 mg/dL [facility] Comment:Desirable LDL: less than 100 mg/dLNear Optimal/Above Optimal LDL: 110- 129 mg/dLBorderline High LDL: 130-159 mg/dLHigh LDL: 160-189 mg/dLVery High LDL: greater than or equal to 190 mg/dL HDL Cholesterol 43 >40 mg/dL [facility] Comment:Desirable HDL: great er than 40 mg/dL Note: This HDL assay may give artificially low results in patients with liver disease. Blood 08/04/2024 9:55 AM EDT 08/04/2024 2:27 PM EDT us Keely Wilburn MD LAB BLOOD ORDERABLES Fin al Result [facility] [address] [place] [phone] * Hepatitis C Antibody with Reflex to HCV, RNA, Quantitative, Real-Time PCR (05/16/2024 11:17 AM EDT) Hepatitis C Antibody Nonreactive Nonreactive [facility] Comment:Antibodies to HCV no t detected; does not exclude early acuteHCV infection. Blood Venous blood specimen / Unknown 05/16/2024 11:17 AM EDT 05/16/2024 1:09 PM EDT us Anusha Real MD LAB BLOOD ORDERABLES Final Res ult Performing Organization Address [facility] Co de Phone Number [facility] [address] [place] [address] [phone] * (ABNORMAL) Colonoscopy (02/06/2024) Colonoscopy Abnormal( A) Normal [facility] Comment:Tubular adenoma; neg ative for high grade dysplasia and carcinoma us Keely Wilburn MD HEALTH MAINTENANCE Final Result Performing Organization Address [facility] Co de Phone Number [facility] [address] [place] [address] [phone] * OCCULT BLOOD STOOL X3 (11/23/2019 3:00 PM EST) OCCULT BLOOD STOOL-1 NEG NEG [facility] OCCULT BLOOD STOOL-1 DATE 11/20/2019 [facility] OCCULT BLOOD STOOL-2 NEG NEG [facility] OCCULT BLOOD STOOL-2 DATE 11/21/2019 [facility] OCCULT BLOOD STOOL-3 NEG NEG [facility] OCCULT BLOOD STOOL-3 DATE 11/23/2019 [facility] 11/23/2019 3:00 PM EST us Keely Wilburn MD HISTORICAL/NON ORDERABLE LABS Final Result Performing Organization Address [facility] Co de Phone Number [facility] [address] from Last 3 Months or Most Recently Relevant to Health Maintenance Insurance [facility] [employer] (HMO D-SNP) [place] [id number] Care Teams Home Office Claims Examiner Relationship Specialty Start Date End Date Keely Wilburn MD [address] [place] [phone] PCP - General Family Medicine 10/27/19 [employer] 08/06/24
--- OUTSIDE RECORDS SUMMARY | 2025-08-04 11:51 | XMS_ITS | Encounter Summary ---
Author Organization [employer] Address [address] [facility] 7t [place] [address] Care Team Providers Care Pcat Instructor Name Role Phone Keely Wilburn MD Primary Care Provider + Encounter Details Date Type Department Care Team (Late st Contact Info) Description 05/07/2024 Telephone [facility] [address] [place], [place] [phone] Keely Wilburn MD [address] [place], [place] [phone] Social History Tobacco Use Types Packs/Day Years [...] contact # if there is any questions [phone] documented in this encounter Plan of Treatment Not on file documented as of this encounter Visit Diagnoses Not on filedocumented in this encounter Care Teams Pcat Instructor Relationship Specialty Start Date End Date Keely Wilburn MD [address] [place] [phone] PCP - General Family Medicine 10/27/19 [employer] 08/06/24 documented as of this encounter
--- OUTSIDE RECORDS SUMMARY | 2025-08-04 11:51 | XMS_ITS | Encounter Summary ---
Author Organization [facility] Address [address] [place] [address] Phone Care Team Providers Care Helicopter Pilot Name Role Phone Keely Wilburn MD Primary Care Provider + [phone] Encounter Details Date Type Department Care Team (Late Contact Info) Description 03/18/2024 Documentation Only [facility] [address] [place] [address] Juju Avila [address] [place] [phone] Social History Tobacco Use Types Packs/Day Years [...] [facility] [address] [place] [address] Terrance Garcia MD [address] [place] [address] [place] [address] documented as of this encounter Visit Diagnoses Not on filedocumented in this encounter Care Teams Helicopter Pilot Relationship Specialty Start Date End Date Keely Wilburn MD [address] [place] [phone] PCP - General Internal Medicine 02/11/20 documented as of this encounter
--- OUTSIDE RECORDS SUMMARY | 2025-08-04 11:51 | XMS_ITS ---
Author Name Sherry Lucio NP Address [address] [place] [address] Phone [phone] [facility] Care Team Providers Care Program Support Clerk Name Role Phone Sherry Lucio Unavailable [phone] Reason for Referral Not Available Allergies, adverse [...] No Data Available BD AUTOSHIELD DUO NDL [id number] USE WITH INSULIN TWICE DAILY 2022-09-05 No Data Meseret ilable Benazepril 20 mg Tab TAKE 1 TABLET (20 M G) BY MOUTH IN THE MORNING. DC BENAZEPRIL/HCTZ 2022-11-16 No Data Available Lantus SoloStar 100 UNIT/ML Solution Pen-injector INJECT 18 UNITS SUBCUTANEOUSLY ONCE DAILY 2023-05-31 No Data Available amLODIPine Besylate 10 mg Tab TAKE 1/2 TABLET BY MOUTH DAILY 2022-08-24 No Data Available Ustlmlxzan-YUPR-Qdrbyinh 50/325/40 mg Tab TAKE 1 TABLET BY [...] No Data Available BD AUTOSHIELD DUO NDL 8RTO08V USE WITH INSULIN TWICE DAILY 2023-12-25 No [...] and one episode of vomiting this am. [facility] tested member this am and she is [...] health RN. Continue to push pedialite and picker packer zofran. f/u sched 01/21/24-call CB 04/06 for [...] joint pain increased [facility]. Follow[facility]up with [facility] as needed for any acute or disease education needs that may arise 04/06.what should be done when the member calls: see each individual diagnosis for contingency plan Encounters Encounters Type Facility Date of Service Diagnosis/Co mplaint New patient,40-59min; chronic exacerbation, 2 stable chronic or 1 acute illness add add modifier 95 for video (do not use for phone, instead use 66014-90) [facility] [place]2023 Severe persistent asthma, uncomplicatedBenign paroxysmal vertigo, [...] (do not use for phone, instead use 72831-00) [facility] [place] New patient,40-59min; chronic exacerbation, 2 stable chronic or 1 acute illness add add modifier 95 for video (do not use for phone, instead use 14561-62) [facility] [place] New patient,40-59min; chronic exacerbation, 2 stable chronic or 1 acute illness add add modifier 95 for video (do not use for phone, instead use 64334-71) [facility] [place]20[place] New patient,40-59min; chronic exacerbation, 2 stable chronic or 1 acute illness add add modifier 95 for video (do not use for phone, instead use 50227-14) [facility] [place]2023 New patient,40-59min; chronic exacerbation, 2 stable chronic or 1 acute illness add add modifier 95 for video (do not use for phone, instead use 21504-08) [facility] [place]20[place] New patient,40-59min; chronic exacerbation, 2 stable chronic or 1 acute illness add add modifier 95 for video (do not use for phone, instead use 77823-73) [facility] [place]2023 New patient,40-59min; chronic exacerbation, 2 stable chronic or 1 acute illness add add modifier 95 for video (do not use for phone, instead use 29213-56) [facility] [place]2023 New patient,40-59min; chronic exacerbation, 2 stable chronic or 1 acute illness add add modifier 95 for video (do not use for phone, instead use 07167-34) [facility] [place]2023 New patient,40-59min; chronic exacerbation, 2 stable chronic or 1 acute illness add add modifier 95 for video (do not use for phone, instead use 06801-10) [facility] [place] [facility] [place]24 Severe persistent asthma, uncomplicatedUnspecified chronic bronchitis No Data Available [facility] ([place] 01/15/[address] [facility] [place]24 Severe persistent asthma, uncomplicatedUnspecified chronic bronchitisBenign [...] other health care No Data Available [facility] [place] 01/[place] [facility] [place] [facility] [place] [facility] [place]2024 Severe persistent asthma, uncomplicatedUnspecified chronic bronchitisUnspecified [...] other health care No Data Available [facility] [place] 01/18/[address] [facility] [place]/18[place] [facility] [place] 01/18/[address] [facility] [place]/21/2024 Severe persistent asthma, uncomplicatedUnspecified chronic bronchitisUnspecified [...] other health care No Data Available [facility] [place] 01/21/2024 Vital Signs Date of Collection Vitals [...] tive Time Current Smoking Status Never smoker 2025-07-14 3 Sex Female History of Procedures Procedures Service Procedure code Service date Servicing provider Phone# New patient,40-59min; chronic exacerbation, 2 stable chronic or 1 acute illness add add modifier 95 for video (do not use for phone, instead use 49591-57) 84325 2023-12-04 No Data Available No Data Availa [...] No Data Avail able No Data Available [id number] 2024-01-15 No Data Available No Data Available [...] No Data Availa ble No Data Available [id number] 2024-01-18 No Data Available No Data Available SBP 130-139 (3075F) 3075F 2024-01-18 No Data Availabl e No Data Available DBP <80 (3078F) 3078F 2024-01-18 No Data Available No Data Available Functional Status Assessed (1170F) 1170F 2024-01-18 No Data Available No Data Avail able No Data Available 89774 2024-01-21 No Data Available No Data Available [...] and one episode of vomiting this am. [facility] tested member this am and she is [...] and one episode of vomiting this am. [facility] tested member this am and she is [...] health RN. Continue to push pedialite and picker packer zofran. f/u sched 01/21/24-call CB 04/06 for [...] and one episode of vomiting this am. [facility] tested member this am and she is [...] health RN. Continue to push pedialite and picker packer zofran. f/u sched 01/21/24-call CB 04/06 for [...]
--- OUTSIDE RECORDS SUMMARY | 2025-08-04 11:51 | XMS_ITS | Encounter Summary ---
Author Organization [employer] Address [address] [facility] 7t [place] [address] Care Team Providers Care Toxicology Supervisor Name Role Phone Keely Wilburn MD Primary Care Provider + Reason for Visit * Reason Comments Med Refill Encounter Details Date Type Department Care Team (Late st Contact Info) Description 05/08/2024 Refill [facility]INE [address] [place], [place] [phone] Keely Wilburn MD [address] [place], [place] [phone] Osteopenia of neck of femur, unspecified laterality [...] laterality documented in this encounter Care Teams Toxicology Supervisor Relationship Specialty Start Date End Date Keely Wilburn MD [address] [place] [phone] PCP - General Family Medicine 10/27/19 [employer] 08/06/24 documented as of this encounter
--- OUTSIDE RECORDS SUMMARY | 2025-08-04 11:51 | XMS_ITS | Encounter Summary ---
Author Organization [employer] Address 75 [facility] 7t [place] [address] Care Team Providers Care Hospitality Housekeeper Name Role Phone Keely Wilburn MD Primary Care Provider + Reason for Visit * Reason Comments Med Refill Encounter Details Date Type Department Care Team (Late st Contact Info) Description 01/18/2024 Refill [facility] [address] [place], [place] [phone] Keely Wilburn MD [address] [place], [place] [phone] Other postherpetic nervous system involvement Social History [...] involvement documented in this encounter Care Teams Hospitality Housekeeper Relationship Specialty Start Date End Date Keely Wilburn MD [address] [place] [phone] PCP - General Family Medicine 10/27/19 [employer] 08/06/24 documented as of this encounter
--- OUTSIDE RECORDS SUMMARY | 2025-08-04 11:51 | XMS_ITS | Encounter Summary ---
Author Organization [employer] Address [address] [facility] 7t [place] [address] Care Team Providers Care Centerpuncher Name Role Phone Keely Wilburn MD Primary Care Provider + Reason for Visit * Reason Onset Date Comments Email paperwork 12/26/2022 Encounter Details Date Type Department Care Team ([facility] st Contact Info) Description 12/26/2022 Telephone [facility] MED[facility]INE [address] [place], [place] [phone] Keely Wilburn MD [address] [place] [address] Email paperwork Social History Tobacco Use Types [...] 3:13 PM EST Tc from Cathryn with [facility] stating that she spoke with a nurse regarding some paperwork that nurse was having trouble faxing over and Cathryn gave over her but she has not receive anything back, the email is [email or web address] If any information needed please contact Cathryn at [phone] documented in this encounter Plan of Treatment Not on file documented as of this encounter Visit Diagnoses Not on filedocumented in this encounter Care Teams Centerpuncher Relationship Specialty Start Date End Date Keely Wilburn MD [address] [place] [phone] PCP - General Family Medicine 10/27/19 [employer] 08/06/24 documented as of this encounter
--- OUTSIDE RECORDS SUMMARY | 2025-08-04 11:51 | XMS_ITS | Encounter Summary ---
Author Organization [employer] Address [address] [facility] 7t [place] [address] Care Team Providers Care Delivery Room Supervisor Name Role Phone Keely Wilburn MD Primary Care Provider + Reason for Visit * Reason Comments Med Refill Encounter Details Date Type Department Care Team (Late st Contact Info) Description 12/09/2023 Refill [facility] MED[facility]INE [address] [place], [place] [phone] Keely Wilburn MD [address] [place], [place] [phone] Osteopenia of neck of femur, unspecified laterality [...] laterality documented in this encounter Care Teams Delivery Room Supervisor Relationship Specialty Start Date End Date Keely Wilburn MD [address] [place] [phone] PCP - General Family Medicine 10/27/19 [employer] 08/06/24 documented as of this encounter
--- OUTSIDE RECORDS SUMMARY | 2025-08-04 11:51 | XMS_ITS | Encounter Summary ---
Author Organization [employer] Address 75 [facility] 7t [place] [address] Care Team Providers Care Topology Professor Name Role Phone Keely Wilburn MD Primary Care Provider + Encounter Details Date Type Department Care Team (Late st Contact Info) Description 11/08/2023 Abstract [facility] MEDICINE 230 [place], [place] [phone] Keely Wilburn MD 230 [place], [place] [phone] Social History Tobacco Use Types Packs/Day Years [...] on filedocumented in this encounter Care Teams Topology Professor Relationship Specialty Start Date End Date Keely Wilburn MD [address] [place] [address] PCP - General Family Medicine 10/27/19 [employer] 08/06/24 documented as of this encounter
--- OUTSIDE RECORDS SUMMARY | 2025-08-04 11:51 | XMS_ITS | Encounter Summary ---
Author Organization [employer] Address 75 [facility] 7t [place] [address] Care Team Providers Care Pattern Fitter Name Role Phone Keely Wilburn MD Primary Care Provider + Reason for Visit * Reason Comments Med Refill Encounter Details Date Type Department Care Team (Late st Contact Info) Description 07/16/2024 Refill [facility] MEDICINE 230 [place], [place] [phone] Keely Wilburn MD 230 [place], [place] [phone] Type 2 diabetes mellitus with hyperglycemia, with long-term current use of insulin ([facility]) Social History Tobacco Use Types [...] hyperglycemia, with long-term current use of insulin ([facility]) documented in this encounter Care Teams Pattern Fitter Relationship Specialty Start Date End Date Keely Wilburn MD [address] [place] [address] PCP - General Family Medicine 10/27/19 [employer] 08/06/24 documented as of this encounter
--- OUTSIDE RECORDS SUMMARY | 2025-08-04 11:51 | XMS_ITS | Encounter Summary ---
Author Organization [facility] Address [address] [place] [address] Phone Care Team Providers Care Warp Hanger Name Role Phone Keely Wilburn MD Primary Care Provider + [phone] Encounter Details Date Type Department Care Team (Late Contact Info) Description 03/18/2024 Documentation Only [facility] [address] [place] [address] Juju Avila [address] [place] [phone] Social History Tobacco Use Types Packs/Day Years [...] [facility] [address] [place] [address] Terrance Garcia MD [address] [place] [address] [place] [address] documented as of this encounter Visit Diagnoses Not on filedocumented in this encounter Care Teams Warp Hanger Relationship Specialty Start Date End Date Keely Wilburn MD [address] [place] [address] PCP - General Internal Medicine 02/11/20 documented as of this encounter
--- OUTSIDE RECORDS SUMMARY | 2025-08-04 11:51 | XMS_ITS | Encounter Summary ---
Author Organization [employer] Address 75 [facility] 7t [place] [address] Care Team Providers Care Administrative Job Titles Name Role Phone Keely Wilburn MD Primary Care Provider + Reason for Visit * Reason Comments Med Change Request Encounter Details Date Type Department Care Team ([facility] st Contact Info) Description 11/09/2023 Refill [facility] [address] [place], [place] [phone] Kaci Le, 230 [place] [address] Type 2 diabetes mellitus with other specified complication, unspecified whether superintendent marine oil terminal insulin use ([facility]) Social History Tobacco Use Types [...] complication, unspecified whether skilled nursing insulin use ([facility]) documented in this encounter Care Teams Administrative Job Titles Relationship Specialty Start Date End Date Keely Wilburn MD [address] [place] [address] PCP - General Family Medicine 10/27/19 [employer] 08/06/24 documented as of this encounter
--- OUTSIDE RECORDS SUMMARY | 2025-08-04 11:51 | XMS_ITS | Encounter Summary ---
Author Organization [facility] Address [address] [place] [address] Phone Care Team Providers Care Summer Babysitter Name Role Phone Keely Wilburn MD Primary Care Provider + [phone] Encounter Details Date Type Department Care Team (Late Contact Info) Description 03/18/2024 Documentation Only [facility] [address] [place] [address] Juju Avila [address] [place] [phone] Social History Tobacco Use Types Packs/Day Years [...] [facility] [address] [place] [address] Terrance Garcia MD [address] [place] [address] [place] [address] documented as of this encounter Visit Diagnoses Not on filedocumented in this encounter Care Teams Summer Babysitter Relationship Specialty Start Date End Date Keely Wilburn MD [address] [place] [address] PCP - General Internal Medicine 02/11/20 documented as of this encounter
--- OUTSIDE RECORDS SUMMARY | 2025-08-04 11:51 | XMS_ITS | Encounter Summary ---
Author Organization [facility] Address [address] [place] [address] Phone Care Team Providers Care Mechanical Engineering Lecturer Name Role Phone Keely Wilburn MD Primary Care Provider + [phone] Encounter Details Date Type Department Care Team (Late st Contact Info) Description 10/11/2021 Documentation Only [facility] [address] [place] [address] Terrance Garcia MD [address] [facility] [place] [address] Social History Tobacco Use Types [...] [facility] [address] [place] [address] Terrance Garcia MD [address] [facility] [place] [address] documented as of this encounter Visit Diagnoses Not on filedocumented in this encounter Care Teams Mechanical Engineering Lecturer Relationship Specialty Start Date End Date Keely Wilburn MD [address] [place] [address] PCP - General Internal Medicine 02/11/20 documented as of this encounter
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
--- OUTSIDE RECORDS SUMMARY | 2025-08-04 11:51 | XMS_ITS | Encounter Summary ---
Author Organization [employer] Address 75 [facility] 7t [place] [address] Care Team Providers Care Vocational Psychologist Name Role Phone Keely Wilburn MD Primary Care Provider + Encounter Details Date Type Department Care Team (Late st Contact Info) Description 01/17/2023 Abstract [facility] MEDICINE 230 [place], [place] [phone] Keely Wilburn MD 230 [place], [place] [phone] Social History Tobacco Use Types Packs/Day Years [...] on filedocumented in this encounter Care Teams Vocational Psychologist Relationship Specialty Start Date End Date Keely Wilburn MD 230 [place], [place] [phone] PCP - General Family Medicine 10/27/19 [employer] 08/06/24 documented as of this encounter
--- OUTSIDE RECORDS SUMMARY | 2025-08-04 11:51 | XMS_ITS | Encounter Summary ---
Author Organization [facility] Address [address] [place] [address] Phone Care Team Providers Care Electromechanic Name Role Phone Keely Wilburn MD Primary Care Provider + [phone] Encounter Details Date Type Department Care Team (Late Contact Info) Description 03/18/2024 Documentation Only [facility] [address] [place] [address] Juju Avila [address] [place] [phone] Social History Tobacco Use Types Packs/Day Years [...] [facility] [address] [place] [address] Terrance Garcia MD [address] [place] [address] [place] [address] documented as of this encounter Visit Diagnoses Not on filedocumented in this encounter Care Teams Electromechanic Relationship Specialty Start Date End Date Keely Wilburn MD [address] [place] [address] PCP - General Internal Medicine 02/11/20 documented as of this encounter
--- OUTSIDE RECORDS SUMMARY | 2025-08-04 11:51 | XMS_ITS | Encounter Summary ---
Author Organization [facility] Address [address] [place] [address] Phone Care Team Providers Care Butcher Meat Name Role Phone Keely Wilburn MD Primary Care Provider + [phone] Encounter Details Date Type Department Care Team (Late Contact Info) Description 03/18/2024 Documentation Only [facility] [address] [place] [address] Juju Avila [address] [place] [phone] Social History Tobacco Use Types Packs/Day Years [...] [facility] [address] [place] [address] Terrance Garcia MD [address] [place] [address] [place] [address] documented as of this encounter Visit Diagnoses Not on filedocumented in this encounter Care Teams Butcher Meat Relationship Specialty Start Date End Date Keely Wilburn MD [address] [place] [address] PCP - General Internal Medicine 02/11/20 documented as of this encounter
--- OUTSIDE RECORDS SUMMARY | 2025-08-04 11:51 | XMS_ITS | Encounter Summary ---
Author Organization [employer] Address 75 [facility] 7t [place] [address] Care Team Providers Care Glaucoma Specialist Name Role Phone Keely Wilburn MD Primary Care Provider + Encounter Details Date Type Department Care Team (Late st Contact Info) Description 07/10/2023 Telephone [facility] MEDICINE 230 [place] [address] Katty Gutierrez LPN Social History Tobacco Use [...] on filedocumented in this encounter Care Teams Glaucoma Specialist Relationship Specialty Start Date End Date Keely Wilburn MD 230 [place] [address] PCP - General Family Medicine 10/27/19 [email or web address] 08/06/24 documented as of this encounter
--- OUTSIDE RECORDS SUMMARY | 2025-08-04 11:52 | XMS_ITS | Encounter Summary ---
Author Organization [facility] Address [address] [place] [address] Phone Care Team Providers Care Machine Tailer Name Role Phone Keely Wilburn MD Primary Care Provider + [phone] Encounter Details Date Type Department Care Team (Late Contact Info) Description 03/06/2025 Documentation Only [facility] [address] [place] [address] Juju Avila [address] [place] [phone] Social History Tobacco Use Types Packs/Day Years [...] Visit [facility] [address] [place] [address] Terrance Garcia MD [address] [place] [address] [place] [address] documented as of this encounter Visit Diagnoses Not on filedocumented in this encounter Care Teams Machine Tailer Relationship Specialty Start Date End Date Keely Wilburn MD [address] [place] [address] PCP - General Internal Medicine 02/11/20 documented as of this encounter
--- OUTSIDE RECORDS SUMMARY | 2025-08-04 11:52 | XMS_ITS | Encounter Summary ---
Author Organization [employer] Address [address] [facility] 7t [place] [address] Care Team Providers Care Tile Designer Name Role Phone Keely Wilburn MD Primary Care Provider + Reason for Visit * Reason Comments Med Refill Encounter Details Date Type Department Care Team (Late st Contact Info) Description 08/06/2024 Refill [facility] MEDICINE 230 [place], [place] [phone] Keely Wilburn MD 230 [place], [place] [phone] Benign paroxysmal positional vertigo, unspecified laterality Social [...] laterality documented in this encounter Care Teams Tile Designer Relationship Specialty Start Date End Date Keely Wilburn MD [address] [place] [address] PCP - General Family Medicine 10/27/19 [employer] 08/06/24 documented as of this encounter
--- OUTSIDE RECORDS SUMMARY | 2025-08-04 11:52 | XMS_ITS | Encounter Summary ---
Author Organization [employer] Address 75 [facility] 7t [place] [address] Care Team Providers Care Life Skills Specialist Name Role Phone Keely Wilburn MD Primary Care Provider + Reason for Visit * Reason Comments Med Refill Encounter Details Date Type Department Care Team (Late st Contact Info) Description 08/13/2024 Refill [facility] MEDICINE 230 [place], [place] [phone] Keely Wilburn MD 230 [place], [place] [phone] Benign paroxysmal positional vertigo, unspecified laterality; Type 2 diabetes mellitus with other specified complication, unspecified whether terminal block assembler insulin use ([facility]) Social History Tobacco Use Types [...] specified complication, unspecified whether detention insulin use ([facility]) documented in this encounter Care Teams Life Skills Specialist Relationship Specialty Start Date End Date Keely Wilburn MD 230 [place] [address] PCP - General Family Medicine 10/27/19 [employer] 08/06/24 documented as of this encounter
--- OUTSIDE RECORDS SUMMARY | 2025-08-04 11:52 | XMS_ITS | Encounter Summary ---
Author Organization [employer] Address 75 [facility] 7t [place] [address] Care Team Providers Care Tuft Machine Operator Name Role Phone Keely Wilburn MD Primary Care Provider + Reason for Visit * Reason Comments Med Refill Encounter Details Date Type Department Care Team (Late st Contact Info) Description 08/20/2024 Refill [facility] MEDICINE 230 [place], [place] [phone] Keely Wilburn MD 230 [place], [place] [phone] Benign paroxysmal positional vertigo, unspecified laterality; Type 2 diabetes mellitus with other specified complication, unspecified whether extermination supervisor insulin use ([facility]) Social History Tobacco Use Types Packs/Day Years [...] mellitus with other specified complication, unspecified whether [facility] insulin use ([facility]) documented in this encounter Care Teams Tuft Machine Operator Relationship Specialty Start Date End Date Keely Wilburn MD [address] [place] [address] PCP - General Family Medicine 10/27/19 [employer] 08/06/24 documented as of this encounter
--- OUTSIDE RECORDS SUMMARY | 2025-08-04 11:52 | XMS_ITS | Encounter Summary ---
Author Organization [employer] Address 75 [facility] 7t [place] [address] Care Team Providers Care Mine Geologist Name Role Phone Keely Wilburn MD Primary Care Provider + Reason for Visit * Reason Comments Med Refill Encounter Details Date Type Department Care Team (Late st Contact Info) Description 07/09/2024 Refill [facility] MEDICINE 230 [place], [place] [phone] Keely Wilburn MD 230 [place], [place] [phone] Slow transit constipation; Type 2 diabetes mellitus with hyperglycemia, with long-term current use of insulin ([facility]) Social History [...] hyperglycemia, with long-term current use of insulin ([facility]) documented in this encounter Care Teams Mine Geologist Relationship Specialty Start Date End Date Keely Wilburn MD [address] [place] [address] PCP - General Family Medicine 10/27/19 [employer] 08/06/24 documented as of this encounter
--- OUTSIDE RECORDS SUMMARY | 2025-08-04 11:52 | XMS_ITS | Encounter Summary ---
Author Organization [employer] Address [address] [facility] 7t [place] [address] Care Team Providers Care Parts Clerk Name Role Phone Keely Wilburn MD Primary Care Provider + Reason for Visit * Reason Comments Med Refill Encounter Details Date Type Department Care Team (Late st Contact Info) Description 08/11/2024 Refill [facility] MEDICINE 230 [place], [place] [phone] Keely Wilburn MD 230 [place], [place] [phone] Benign paroxysmal positional vertigo, unspecified laterality Social [...] laterality documented in this encounter Care Teams Parts Clerk Relationship Specialty Start Date End Date Keely Wilburn MD [address] [place] [address] PCP - General Family Medicine 10/27/19 [employer] 08/06/24 documented as of this encounter
--- OUTSIDE RECORDS SUMMARY | 2025-08-04 11:52 | XMS_ITS | Encounter Summary ---
Author Organization [employer] Address 75 [facility] 7t [place] [address] Care Team Providers Care Metal Wire Coating Operator Name Role Phone Keely Wilburn MD Primary Care Provider + Reason for Visit * Reason Comments Med Refill Encounter Details Date Type Department Care Team (Late st Contact Info) Description 07/08/2024 Refill [facility] MEDICINE 230 [place], [place] [phone] Anusha Real MD 230 [place], [place] [phone] Benign paroxysmal positional vertigo, unspecified laterality Social [...] laterality documented in this encounter Care Teams Metal Wire Coating Operator Relationship Specialty Start Date End Date Keely Wilburn MD [address] [place] [address] PCP - General Family Medicine 10/27/19 [employer] 08/06/24 documented as of this encounter
--- OUTSIDE RECORDS SUMMARY | 2025-08-04 11:52 | XMS_ITS | Encounter Summary ---
Author Organization [employer] Address 75 [facility] 7t [place] [address] Care Team Providers Care Project Management It Specialist Name Role Phone Keely Wilburn MD Primary Care Provider + Reason for Visit * Reason Comments Med Refill Encounter Details Date Type Department Care Team (Late st Contact Info) Description 08/18/2024 Refill [facility] MEDICINE 230 [place], [place] [phone] Keely Wilburn MD 230 [place], [place] [phone] Benign paroxysmal positional vertigo, unspecified laterality; Type 2 diabetes mellitus with other specified complication, unspecified whether exterminator termite insulin use ([facility]) Social History Tobacco Use Types Packs/Day Years [...] mellitus with other specified complication, unspecified whether penitentiary insulin use ([facility]) documented in this encounter Care Teams Project Management It Specialist Relationship Specialty Start Date End Date Keely Wilburn MD 230 [place] [address] PCP - General Family Medicine 10/27/19 [employer] 08/06/24 documented as of this encounter
--- OUTSIDE RECORDS SUMMARY | 2025-08-04 11:52 | XMS_ITS | Encounter Summary ---
Author Organization [employer] Address 75 [facility] 7t [place] [address] Care Team Providers Care Flexographic Press Plate Setter Name Role Phone Keely Wilburn MD Primary Care Provider + Reason for Visit * Reason Comments Med Refill Encounter Details Date Type Department Care Team (Late st Contact Info) Description 07/22/2025 Refill [facility] MEDICINE 230 [place], [place] [phone] Keely Wilburn MD 230 [place], [place] [phone] Social History Tobacco Use Types Packs/Day Years [...] on filedocumented in this encounter Care Teams Flexographic Press Plate Setter Relationship Specialty Start Date End Date Keely Wilburn MD [address] [place] [address] PCP - General Family Medicine 10/27/19 [employer] 08/06/24 documented as of this encounter
--- OUTSIDE RECORDS SUMMARY | 2025-08-04 11:52 | XMS_ITS | Encounter Summary ---
Author Organization [employer] Address 75 [facility] 7t [place] [address] Care Team Providers Care Ironworker Machine Operator Name Role Phone Keely Wilburn MD Primary Care Provider + Reason for Visit * Reason Comments Med Refill Encounter Details Date Type Department Care Team (Late st Contact Info) Description 07/08/2024 Refill [facility] MEDICINE 230 [place], [place] [phone] Keely Wilburn MD 230 [place], [place] [phone] Type 2 diabetes mellitus with hyperglycemia, with long-term current use of insulin ([facility]); Slow transit constipation Social History [...] hyperglycemia, with long-term current use of insulin ([facility]) Slow transit constipation documented in this encounter Care Teams Ironworker Machine Operator Relationship Specialty Start Date End Date Keely Wilburn MD [address] [place] [address] PCP - General Family Medicine 10/27/19 [employer] 08/06/24 documented as of this encounter
== END 2025-08-04 10:35 | disposition home or self-care (01) ==
LOC: HO.HVS 09:50
PROVIDERS: PCP Internal Medicine; Visit Provider Surgery Vascular Surgery
DX: I83.12 Varicose veins of left lower extremity with inflammation (principal); I83.11 Varicose veins of right lower extremity with inflammation
CPT/HCPCS: 99213

== ENCOUNTER → 2025-08-04 09:50 | Outpatient (BNVA) | payer OTHER, SELFPAY | PROVIDERS: PCP Internal Medicine; Visit Provider Surgery Vascular Surgery | DX: I83.12 Varicose veins of left lower extremity with inflammation (principal); I83.11 Varicose veins of right lower extremity with inflammation | CPT/HCPCS: 99212 ==

== ENCOUNTER 2025-08-25 08:48 | Outpatient (AMB) | payer OTHER, SELFPAY ==
--- NOTE | 2025-08-25 08:51 | MHC.OFFVIS ---
Vital Signs 08/25/25 08:54 Height 4 ft 11 in Weight 190 lb 0.615 oz BMI 38.4 BP 110/62 Blood Pressure Location Rt brachial Position Sitting Pulse 76 Pulse Source Pulse Oximeter Pulse Oximetry (%) 97 Oxygen Delivery Method Room Air Intake Visit Reasons: Type II diabetes Intake Note: Patient present today to follow up on Type 2 Diabetes Mellitus. Patient receives Freestyle Kelly 3 plus supplies through: [facility] Last Diabetic Eye exam: February 19, 2025 Last Podiatry Visit: March 31, 2025 Dr. De Jesus Random Glucose: 172 mg/dl HgA1C: 6.9%, 06/30/2025 Center Medical And Lab Director Required: Yes Center Medical And Lab Director Language: Assistant Spa Manager Services: Center Medical And Lab Director Offered & Declined Center Medical And Lab Director Name: Daughter will interpret Information Interpreted: non-clinical & clinical Accompanied by: Daughter Allergies penicillin G (PENICILLIN G) Allergy (Mild, Verified 08/25/25 08:55) PRURITIS amoxicillin Allergy (Unknown, Verified 08/25/25 08:55) rash, itching aspirin Adverse Reaction (Verified 08/25/25 08:55) Hives Medication List - Last Reconciled 08/25/25 by AMERICA Matt acetaminophen 500 mg PO DAILY PRN albuterol sulfate 90 mcg/actuation (ProAir HFA) 2 puffs inhalation Q6H PRN allopurinol 100 mg PO DAILY Held on 11/22/23. Instructions: Doctor's Order amlodipine 5 mg PO DAILY benazepril 20 mg PO DAILY blood sugar diagnostic (OneTouch Ultra Test strips) USE 1 TEST STRIP 3 TIMES DAILY brimonidine 0.2% 1 drp ophthalmic-Right BID calcium carbonate (Antacid Extra-Strength) tabs PO calcium carbonate-vitamin D3 600 mg-10 mcg (400 unit) (Calcium 600 with Vitamin D3) 1 tab PO BID cholecalciferol (vitamin D3) 1,250 mcg PO QWEEK colchicine 0.6 mg PO DAILY [comp.stocking,thigh,long,x-lrg ] diclofenac sodium 1% 2 grams topical BID PRN docusate sodium 100 mg PO BID PRN FreeStyle Kelly 3 Plus Sensor (blood-glucose sensor) every 15 days NS FreeStyle Kelly 3 [place] (blood-glucose,forklift truck operator,cont) As directed for use with sensors NS gabapentin 100 mg PO ONCE glucose (Dex4 Glucose Quick Dissolve) 16 grams (4 x 4 gram) PO Q15M PRN ketorolac 0.5% 1 drp ophthalmic (eye) DAILY lancets (OneTouch Delica Lancets) 3 times a day meclizine 25 mg PO TID omeprazole 20 mg PO QAM pen needle,diabetic dual safty USE WITH INSULIN TWICE DAILY rosuvastatin 20 mg PO DAILY sertraline 50 mg PO Q24H timolol maleate 0.5% 1 drp ophthalmic (eye) BID tirzepatide (Mounjaro) 5 mg (0.5 mL) subcut QWEEK HPI Comments Details: This is a 75-year-old female with a past medical history of type 2 diabetes, hypertension, hyperlipidemia, schizophrenia, Chiari malformation 1, endometrial cancer status post hysterectomy presenting for diabetic management. She is here with her daughter, Ashlyn. Center Medical And Lab Director declined. She was initially diagnosed with type 2 diabetes in 1991. She has a family history of type 2 diabetes in her brother and son. Her hemoglobin A1c was 6.9% 06/30/2025. Reviewed Secure64 3 data CGM active 96% Average glucose 131 G NV 6.4% Glucose variability 21.4% Very high 0% High 4% Target range 94% Low 2% Very low 0% She has occasional hypoglycemia overnight with majority of blood sugars in target range during the day and evening. Patient denies symptoms of low blood sugar, and her daughter has checked in with her during the night when the CGM is alerting her, and she feels fine. She is not checking a fingerstick blood sugar to confirm. She does not treat lows. Current regimen: Mounjaro 5 mg weekly. Past medication: Metformin which was stopped due to diminished GFR. Trulicity was switched to Mounjaro because she did not lose weight with Trulicity. Lantus discontinued due to no longer being needed. Complications: Nephropathy on TALI inhibitor. She sees Podiatry every 3 months. She has annual eye exams. Last eye exam was February 2025. She has hyperlipidemia treated with rosuvastatin. Hypertension is treated with amlodipine, benazepril. ROS: Constitutional: No unexplained weight loss, fever, chills Eyes: No vision changes, blurry vision, double vision Respiratory: No shortness of breath Cardiovascular: No chest pain Genitourinary: No dysuria, hematuria, urinary frequency. Neurologic: No numbness or tingling in the extremities. Denies dizziness, syncope, headaches. Endocrine: No cold or heat intolerance. No polyuria or polydipsia. Denies shakiness, diaphoresis, weakness. Physical exam: Constitutional: Alert, in no distress. Neck: Supple, Full range of motion. No lymphadenopathy. No palpable thyroid masses. Respiratory: Clear to auscultation. Cardiovascular: S1 S2 regular. No murmurs. Extremities: Warm and well perfused. No clubbing, cyanosis or edema. 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 Pneumonia due to COVID-19 virus Postmenopausal bleeding Osteopenia Obesity Microalbuminuria Medial epicondylitis Lateral epicondylitis of right elbow Injury of face Edema, lower extremity DJD of shoulder Chronic right shoulder pain Cellulitis, toe Arthritis of knee Abnormal gait Asthma Anemia Stroke Cataract of both eyes CKD (chronic kidney disease) Vitamin D deficiency HLD (hyperlipidemia) HTN (hypertension) T2DM (type 2 diabetes mellitus) Diabetes Surgical History H/O: hysterectomy Hx of colonoscopy History of temporal artery biopsy Hx of elbow surgery History of right shoulder fracture Family History Father No problems noted. Mother No problems noted. Daughter Arthritis Daughter Arthritis Daughter Arthritis Social History Household Members: Children Housing: Apartment Are you a primary dialysis patient care technician to a significant other at home: No Do you presently have visiting nurse or other home services: Yes Alcohol intake: never Patient Tobacco Use Status: Never used Tobacco service: No Current occupational status: disabled Physical Exam Vital Signs: Last Vital Signs Pulse 76 08/25/25 08:54 BP 110/62 08/25/25 08:54 Pulse Ox 97 08/25/25 08:54 Oxygen Delivery Method Room Air 08/25/25 08:54 BMI result Body Mass Index 38.4 Office Procedures Glucose Monitoring Details Details: See HPI 14338 - Glucose monitoring, continuous-physician I&R Procedure code (CPT) selection complete Results Reviewed Results Reviewed: Laboratory Last Values Glucose (Clinic) 172 mg/dL (60-115) H 08/25/25 09:00 Laboratory Tests 08/22/24 04/21/25 12:30 07:26 Plt Count 221 Creatinine 1.01 Estimated GFR 53 AST 21 ALT 13 25-OH Vitamin D Total 48.8 Urine Creatinine 118.07 Urine Microalbumin 85.0 Microalb/Creat Ratio 71.9 H Assessment & Plan Assessment & Plan (1) Controlled type 2 diabetes mellitus with renal manifestation: Code(s): E11.29 - Type 2 diabetes mellitus with other diabetic kidney complication Category: Medical (2) Class 3 obesity: Code(s): E66.813 - Obesity, class 3 Category: Medical (3) HTN (hypertension): Code(s): I10 - Essential (primary) hypertension Category: Medical Qualifiers: Hypertension type: unspecified Qualified Code(s): I10 - Essential (primary) hypertension (4) HLD (hyperlipidemia): Code(s): E78.5 - Hyperlipidemia, unspecified Category: Medical Qualifiers: Hyperlipidemia type: unspecified Qualified Code(s): E78.5 - Hyperlipidemia, unspecified Plan In summary this is a 75-year-old female with controlled type 2 diabetes. She has a additional comorbidities of obesity including hypertension, hyperlipidemia and osteoarthritis. Continue Mounjaro 5 mg weekly. She is happy about the weight loss. If you experience low blood sugar, treat this by eating a chewable fruit candy like skittles or jelly beans (about 8 pieces), 4 ounces (1/2 cup) of fruit juice (not diet), 1 tablespoon of honey or 4 glucose tablets. If your blood sugar is under 50, take double the amount of one of the above. Recheck your blood sugar in 15 minutes. They have glucose tablets at home. I asked her to confirm low blood sugars with a fingerstick since she has been asymptomatic at night when the CGM alerts her. Diabetic diet reviewed. Continue rosuvastatin, and she will check a lipid profile before her next appointment. Hypertension is well-controlled. Continue amlodipine and benazepril. Low-sodium diet encouraged. Follow up in 6 weeks for type 2 diabetes. Orders: Orders Creatinine 1 Month E11.9 - Type 2 diabetes mellitus without complications, I10 - Essential (primary) hypertension Lipid Panel 1 Month E11.9 - Type 2 diabetes mellitus without complications, E78.5 - Hyperlipidemia, unspecified, I10 - Essential (primary) hypertension Microalbumin, Random (w Creat) 1 Month E11.9 - Type 2 diabetes mellitus without complications, I10 - Essential (primary) hypertension AMB Glucose Monitoring Today E11.9 - Type 2 diabetes mellitus without complications Hemoglobin A1c 1 Month E11.9 - Type 2 diabetes mellitus without complications, I10 - Essential (primary) hypertension, R73.9 - Hyperglycemia, unspecified Alanine Aminotransferase 1 Month E11.9 - Type 2 diabetes mellitus without complications, I10 - Essential (primary) hypertension Aspartate Amino Transferase 1 Month E11.9 - Type 2 diabetes mellitus without complications, I10 - Essential (primary) hypertension Medications: Refilled tirzepatide (Mounjaro) 5 mg (0.5 mL) subcut QWEEK 2 mL 5RF Patient Instructions: Continue Mounjaro 5 mg weekly If you experience low blood sugar, treat this by eating a chewable fruit candy like skittles or jelly beans (about 8 pieces), 4 ounces (1/2 cup) of fruit juice or soda (not diet), 1 tablespoon of honey or 4 glucose tablets. If your blood sugar is under 50, take double the amount of one of the above. Recheck your blood sugar in 15 minutes. Please have lab work done in 4-5 weeks. Please check a fingerstick blood sugar if the sensor says you have a low blood sugar. Coding Level of Care Code Est Pt Level 4 (06508) Diagnoses Controlled type 2 diabetes mellitus with renal manifestation E11.29 Class 3 obesity E66.813 Hypertension, unspecified type I10 Hypertension type: unspecified Hyperlipidemia, unspecified hyperlipidemia type E78.5 Hyperlipidemia type: unspecified CPT Codes Details - CPT: 60694 - Glucose monitoring, continuous-physician I&R ([id number])
[2025-08-25 08:54] VITALS: BP 110/62; PULSE 76; O2SAT 97; BMI 38.4
[2025-08-25 09:04] LABS: Glucose, Whole Blood 172 mg/dL (60-115)
--- OUTSIDE RECORDS SUMMARY | 2025-08-25 09:19 | XMS_ITS | Encounter Summary ---
Author Organization [facility] Address [address] [place] [address] Phone Care Team Providers Care Software Tools Developer Name Role Phone Keely Wilburn MD Primary Care Provider + [phone] Encounter Details Date Type Department Care Team (Late Contact Info) Description 03/18/2024 Documentation Only [facility] [address] [place] [address] Juju Avila [address] [place] [phone] Social History Tobacco Use Types Packs/Day Years [...] [facility] [address] [place] [address] Terrance Garcia MD [address] [place] [address] [place] [address] documented as of this encounter Visit Diagnoses Not on filedocumented in this encounter Care Teams Software Tools Developer Relationship Specialty Start Date End Date Keely Wilburn MD [address] [place] [address] PCP - General Internal Medicine 02/11/20 documented as of this encounter
--- OUTSIDE RECORDS SUMMARY | 2025-08-25 09:19 | XMS_ITS | Encounter Summary ---
Author Organization [facility] Address [address] [place] [address] Phone Care Team Providers Care Boilermaker Ship Name Role Phone Keely Wilburn MD Primary Care Provider + [phone] Encounter Details Date Type Department Care Team (Late Contact Info) Description 09/29/2024 Documentation Only [facility] [address] [place] [address] Juju Avila [address] [place] [phone] Social History Tobacco Use Types Packs/Day Years [...] [facility] [address] [place] [address] Terrance Garcia MD [address] [place] [address] [place] [address] documented as of this encounter Visit Diagnoses Not on filedocumented in this encounter Care Teams Boilermaker Ship Relationship Specialty Start Date End Date Keely Wilburn MD [address] [place] [address] PCP - General Internal Medicine 02/11/20 documented as of this encounter
--- OUTSIDE RECORDS SUMMARY | 2025-08-25 09:19 | XMS_ITS | Clinical Summary ---
Author Organization [facility] [place], Address [address] [place] [address] [place] [address] Phone Care Team Providers Care Clothing Examiner Name Role Phone Keely Wilburn MD Primary Care Provider + [phone] Allergies Active Allergy Reactions Criticality Noted Date [...] NEEDED 0 Active Lancets (ONETOUCH DELICA PLUS LEAVJO45N) misc USE SEG N LO INDICADO PAN [...] Visit [facility] [place], [address] [address] Terrance Garcia MD [address] [place] [address] Health [...] PM EST) Hemoglobin A1C 6.8(H) (4.0-5.6) % [facility] Comment: MONITORING: In known diabetic patients, hemoglobin A1c targets should be discussed with health care provider. DIAGNOSTIC USE: The [place] Diabetes Association (ADA) and the World Health [...] Supplement 1 Testing performed or reported by [facility], a Service of [facility], [address] [place] [address] Luis Andino MD, Oil Pump Station Operator Chief [facility]# [id number] Blood specimen (specimen) Venous blood / Unknown 09/28/2022 2:01 PM EST 09/28/2022 2:03 PM EST us Terrance Garcia MD LAB BLOOD ORDERABLES Final Re sult [facility] from Last 3 Months or Most Recently Relevant to Health Maintenance [place] [place] [address] [facility] Care Dual SNP ([id number]) [place] FERNANDEZ [id number] Care Teams Clothing Examiner Relationship Specialty Start Date End Date Keely Wilburn MD [address] [place] [address] PCP - General Internal Medicine 02/11/20
--- OUTSIDE RECORDS SUMMARY | 2025-08-25 09:19 | XMS_ITS | Encounter Summary ---
Author Organization [employer] Address [address] [facility] 7t [place] [address] Care Team Providers Care Cutting Inspector Name Role Phone Keely Wilburn MD Primary Care Provider + Encounter Details Date Type Department Care Team (Late Contact Info) Description 01/17/2023 Abstract [facility] [address] [place] [address] Keely Wilburn MD [address] [place], [place] [phone] Social History Tobacco Use Types Packs/Day Years [...] Department Care Team (Late Contact Info) Description 10/29/2025 10:30 AM EST Office Visit [facility] [address] [place], [place] [phone] Keely Wilburn MD [address] [place] [address] documented as of this encounter Visit Diagnoses Not on filedocumented in this encounter Care Teams Cutting Inspector Relationship Specialty Start Date End Date Keely Wilburn MD [address] [place] [address] PCP - General Family Medicine 10/27/19 [employer] 08/06/24 documented as of this encounter
--- OUTSIDE RECORDS SUMMARY | 2025-08-25 09:20 | XMS_ITS | Encounter Summary ---
Author Organization [facility] Address [address] [place] [address] Phone Care Team Providers Care Assistant Community Manager Name Role Phone Keely Wilburn MD Primary Care Provider + [phone] Encounter Details Date Type Department Care Team (Late Contact Info) Description 03/18/2024 Documentation Only [facility] [address] [place] [address] Juju Avila [address] [place] [phone] Social History Tobacco Use Types Packs/Day Years [...] Visit [facility] [address] [place] [address] Terrance Garcia MD [address] [place] [address] [place] [address] documented as of this encounter Visit Diagnoses Not on filedocumented in this encounter Care Teams Assistant Community Manager Relationship Specialty Start Date End Date Keely Wilburn MD [address] [place] [address] PCP - General Internal Medicine 02/11/20 documented as of this encounter
--- OUTSIDE RECORDS SUMMARY | 2025-08-25 09:20 | XMS_ITS | Encounter Summary ---
Author Organization [facility] Address [address] [place] [address] Phone Care Team Providers Care Machine Made Shoe Unit Worker Name Role Phone Keely Wilburn MD Primary Care Provider + [phone] Encounter Details Date Type Department Care Team (Late Contact Info) Description 03/18/2024 Documentation Only [facility] [address] [place] [address] Juju Avila [address] [place] [phone] Social History Tobacco Use Types Packs/Day Years [...] [facility] [address] [place] [address] Terrance Garcia MD [address] [place] [address] [place] [address] documented as of this encounter Visit Diagnoses Not on filedocumented in this encounter Care Teams Machine Made Shoe Unit Worker Relationship Specialty Start Date End Date Keely Wilburn MD [address] [place] [address] PCP - General Internal Medicine 02/11/20 documented as of this encounter
--- OUTSIDE RECORDS SUMMARY | 2025-08-25 09:20 | XMS_ITS | Encounter Summary ---
Author Organization [facility] Address [address] [place] [address] Phone Care Team Providers Care Lehr Loader Name Role Phone Keely Wilburn MD Primary Care Provider + [phone] Encounter Details Date Type Department Care Team (Late Contact Info) Description 03/18/2024 Documentation Only [facility] [address] [place] [address] Juju Avila [address] [place] [phone] Social History Tobacco Use Types Packs/Day Years [...] [facility] [address] [place] [address] Terrance Garcia MD [address] [place] [address] [place] [address] documented as of this encounter Visit Diagnoses Not on filedocumented in this encounter Care Teams Lehr Loader Relationship Specialty Start Date End Date Keely Wilburn MD [address] [place] [address] PCP - General Internal Medicine 02/11/20 documented as of this encounter
--- OUTSIDE RECORDS SUMMARY | 2025-08-25 09:20 | XMS_ITS | Encounter Summary ---
Author Organization [facility] Address [address] [place] [address] Phone Care Team Providers Care Integrated Specialist Name Role Phone Keely Wilburn MD Primary Care Provider + [phone] Encounter Details Date Type Department Care Team (Late Contact Info) Description 03/18/2024 Documentation Only [facility] [address] [place] [address] Juju Avila [address] [place] [phone] Social History Tobacco Use Types Packs/Day Years [...] Visit [facility] [address] [place] [address] Terrance Garcia MD [address] [place] [address] [place] [address] documented as of this encounter Visit Diagnoses Not on filedocumented in this encounter Care Teams Integrated Specialist Relationship Specialty Start Date End Date Keely Wilburn MD [address] [place] [address] PCP - General Internal Medicine 02/11/20 documented as of this encounter
--- OUTSIDE RECORDS SUMMARY | 2025-08-25 09:20 | XMS_ITS | Encounter Summary ---
Author Organization [employer] Address [address] [facility] 7t [place] [address] Care Team Providers Care Sustainability Analyst Name Role Phone Keely Wilburn MD Primary Care Provider + Reason for Visit * Reason Onset Date Comments Email paperwork 12/26/2022 Encounter Details Date Type Department Care Team ([facility] st Contact Info) Description 12/26/2022 Telephone [facility] [address] [place], [place] [phone] Keely Wilburn MD [address] [place] [address] Email paperwork Social History Tobacco Use Types [...] 3:13 PM EST Tc from Cathryn with [facility] stating that she spoke with a nurse regarding some paperwork that nurse was having trouble faxing over and Cathryn gave over her but she has not receive anything back, the email is [email or web address] If any information needed please contact Cathryn at [phone] documented in this encounter Plan of Treatment Upcoming Encounters Date Type Department Care Team (Late st Contact Info) Description 10/29/2025 10:30 AM EST Office Visit [facility] [address] [place] [address] Keely Wilburn MD [address] [place] [address] documented as of this encounter Visit Diagnoses Not on filedocumented in this encounter Care Teams Sustainability Analyst Relationship Specialty Start Date End Date Keely Wilburn MD [address] [place] [address] PCP - General Family Medicine 10/27/19 [employer] 08/06/24 documented as of this encounter
--- OUTSIDE RECORDS SUMMARY | 2025-08-25 09:20 | XMS_ITS | Encounter Summary ---
Author Organization [facility] Address [address] [place] [address] Phone Care Team Providers Care Cork Floor Installer Name Role Phone Keely Wilburn MD Primary Care Provider + [phone] Encounter Details Date Type Department Care Team (Late Contact Info) Description 03/18/2024 Documentation Only [facility] [address] [place] [address] Juju Avila [address] [place] [phone] Social History Tobacco Use Types Packs/Day Years [...] Visit [facility] [address] [place] [address] Terrance Garcia MD [address] [place] [address] [place] [address] documented as of this encounter Visit Diagnoses Not on filedocumented in this encounter Care Teams Cork Floor Installer Relationship Specialty Start Date End Date Keely Wilburn MD [address] [place] [address] PCP - General Internal Medicine 02/11/20 documented as of this encounter
--- OUTSIDE RECORDS SUMMARY | 2025-08-25 09:20 | XMS_ITS | Encounter Summary ---
Author Organization [facility] [place], Address [address] [place] [address] Phone Care Team Providers Care Oyster Washer Name Role Phone Keely Wilburn MD Primary Care Provider + [phone] Encounter Details Date Type Department Care Team (Late Contact Info) Description 09/02/2024 Documentation Only [facility] [address] [place] [address] [place] [address] [place] [phone] Social History Tobacco Use Types Packs/Day Years [...] Visit [facility] [address] [place] [address] Terrance Garcia MD [address] [place] [address] [place] [address] documented as of this encounter Visit Diagnoses Not on filedocumented in this encounter Care Teams Oyster Washer Relationship Specialty Start Date End Date Keely Wilburn MD [address] [place] [address] PCP - General Internal Medicine 02/11/20 documented as of this encounter
--- OUTSIDE RECORDS SUMMARY | 2025-08-25 09:20 | XMS_ITS | Encounter Summary ---
Author Organization [facility] Address [address] [place] [address] Phone Care Team Providers Care Auto Mechanic Apprentice Name Role Phone Keely Wilburn MD Primary Care Provider + [phone] Encounter Details Date Type Department Care Team (Late Contact Info) Description 03/18/2024 Documentation Only [facility] [address] [place] [address] Juju Avila [address] [place] [phone] Social History Tobacco Use Types Packs/Day Years [...] Visit [facility] [address] [place] [address] Terrance Garcia MD [address] [place] [address] [place] [address] documented as of this encounter Visit Diagnoses Not on filedocumented in this encounter Care Teams Auto Mechanic Apprentice Relationship Specialty Start Date End Date Keely Wilburn MD [address] [place] [phone] PCP - General Internal Medicine 02/11/20 documented as of this encounter
--- OUTSIDE RECORDS SUMMARY | 2025-08-25 09:20 | XMS_ITS | Clinical Summary ---
Author Organization [employer] Address [address] [facility] 7t [place] [address] Care Team Providers Care Lead Esthetician Name Role Phone Keely Wilburn MD [...] tablet 11 Active Lancets (OneTouch Delica Plus [id number]) miscIndications :Type 2 diabetes mellitus with diabetic nephropathy, with long-term current use of insulin (HCC) USE TO TEST BLOOD SUGAR THREE TIMES [...] Continuous Glucose Sensor (FreeStyle Kelly 2 Sensor) [facility] Use as directed Active ketoconazole (NIZOral) [...] hyperglycemia, with long-term current use of insulin (HCC) Inject 1.5 mg under the skin 1 (one) time per week. 2 mL 5 025 Active albuterol (ProAir HFA) 108 (90 [...] EVERY DAY 84 tablet 2 025 Active cholecalciferol (Vitamin D-3) 1.25 MG (88765 UT) capsule TAKE 1 CAPSULE BY MOUTH ONCE WEEKLY 12 capsule 1 025 Active Lantus SoloStar 100 UNIT/ML penIndications: Type 2 diabetes mellitus with other specified complication, unspecified whether fdc insulin use (HCC) INJECT 18 UNITS SUBCUTANEOUSLY ONCE DAILY 45 mL 1 025 Active cholecalciferol (Vitamin D-3) 1.25 MG (10826 UT) capsule TAKE 1 CAPSULE BY MOUTH ONCE WEEKLY 12 capsule 1 025 2024 Discontinued Lantus SoloStar 100 UNIT/ML penIndications: Type 2 diabetes mellitus with other specified complication, unspecified whether fdc insulin use (HCC) INJECT 18 UNITS SUBCUTANEOUSLY ONCE DAILY 15 mL 1 025 2024 Discontinued Active Problems Problem Noted Date [...] daughter who agreed to bring patient to [facility] ER for emergent US to rule out [...] scan abdomen and pelvis on 12/02/2024 at [facility] Assessment & Plan (06/09/2025 10:46 AM EDT): [...] scan abdomen and pelvis on 12/02/2024 at [facility] Assessment & Plan (01/15/2025 3:49 PM EST): See pancreatic lesions above, will try to expedite MRI of the abdomen Venous ulcer of left leg (CMS/HCC) 07/31/2024 Assessment & Plan (07/31/2024 2:34 PM EDT): Ulcer dressing done by RN, see above. Schizoaffective disorder, depressive type (CMS/H CC) 07/31/2024 Assessment & Plan (06/09/2025 10:47 AM EDT): She is doing well, she FU at [facility] by [facility] psych prescriber and Kathleen Li is her therapist. Continue sertraline and follow-up with me in 3 months Patient feels safe at home and is able to reach out for safety Type 2 diabetes mellitus wit h hyperglycemia, with long-term current use of insulin 07/31/2024 Hyperproteinemia 07/31/2024 Assessment & Plan (07/31/2024 2:50 PM EDT): Follow up with [facility]. 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 ([facility]) 03/26/2017 Microalbuminuria 08/13/2012 Obesity 08/13/2012 Asthma 06/18/2012 [...] + Lantus 18 units and follow-up with power transformer repairer, I told him to address change of GLP to power transformer repairer to the 1 that has a better [...] requested refill of Trulicity be sent to [facility] as she had difficulty picking it up at local [facility] due to supply issues Assessment [...] Plan (05/24/2023 11:18 AM EDT): r/o hypoglycemia RFID STRATEGIST will monitor symptoms of dizziness and pt [...] Encounters Date Type Department Care Team Description 08/25/2025 Orders Only GENERIC EXTERNAL DATA DEPARTMENT Provider, Generic External Data 08/20/2025 Telephone [facility] [address] [place] [phone] Keely Wilburn MD October08/07/2025 Telephone [facility] [address] [place] [address] Keely Wilburn MD verbal order needed 08/05/2025 Refill [facility] [address] [place] [address] Kaci Le DO Type 2 diabetes mellitus with other specified complication, unspecified whether fdc insulin use ([facility]) 08/02/2025 Refill [facility] [address] [place] [address] Keely Wilburn MD 07/28/2025 Orders Only GENERIC EXTERNAL DATA DEPARTMENT Provider, Generic External Data 07/22/2025 Refill [facility] [address] [place] [address] Keely Wilburn MD 07/19/2025 Refill [facility] [address] [place] [address] Keely Wilburn MD 07/10/2025 Refill [facility] [address] [place] [address] Keely Wilburn MD Moderate persistent asthma, unspecified whether complicated; Viral upper respiratory tract infection 06/30/2025 Orders Only GENERIC EXTERNAL DATA DEPARTMENT Provider, Generic External Data 06/11/2025 Telephone [facility] [address] [place] [address] Keely Wilburn MD DME Compression stockings 06/09/2025 9:45 AM EDT Office Visit [facility] [address] [place] [phone] Keely Wilburn MD Type 2 diabetes mellitus with diabetic nephropathy, with long-term current use of insulin ([facility]) (Primary Dx); Class 2 severe obesity due to excess calories with serious comorbidity and body mass index (BMI) of 37.0 to 37.9 in adult ([facility]); Vascular insufficiency; Primary hypertension; Pancreatic lesion; Schizoaffective disorder, depressive type ([facility]); Dietary counseling; Exercise counseling 06/09/2025 Travel 06/05/[address] [address] Keely Wilburn MD chart prep 06/01/2025 Patient Outreach [address] [phone] Keely Wilburn MD Pre-visit Planning ([facility] screening completed on 12/08/2024) from Last 3 Months Immunizations Immunization Administration [...] 06/09/2025 10:02 AM EDT Plan of Treatment Upcoming Encounters Date Type Department Care Team (Late st Contact Info) Description 10/29/2025 10:30 AM EST Office Visit [facility] [address] [place] [address] Keely Wilburn MD [address] [place] [address] Health Maintenance Due Date Last Done Comments Eye Exam 1960 Hepatitis B Vaccines (3 of 3 - 19+ 3-dose series) 10/17/2017 05/21/2017, 04/17/2017 RSV Patients and Patients Aged 60 years or older (1 - 1-dose 75+ series) 2023 Depression Screening 11/16/2023 11/16/2022, 11/16/19 23 COVID-19 Vaccine ( season) 2025 03/29/2022, 09/20/2021, 08/19/2021 Influenza Vaccine (#1) 2025 , 08/24/2022, 07/13/2022, Additional history exists Lipid Panel 08/04/2025 08/04/2024, [...] Associated Diagnosis Comments GLUCOSE, WHOLE BLOOD Routine 08/25/2025 9:00 AM EDT GLUCOSE, WHOLE BLOOD Routine 07/28/2025 8:50 AM EDT GLUCOSE, WHOLE BLOOD Routine 06/30/2025 8:38 AM EDT POCT GLYCATED HEMOGLOBIN, TOTAL Routine 06/09/2025 10:07 AM EDT Type 2 diabetes mellitus with diabetic nephropathy, with long-term current use of insulin ([facility]) POCT GLUCOSE Routine 06/09/2025 10:04 AM EDT Type 2 diabetes mellitus with diabetic nephropathy, with long-term current use of insulin ([facility]) BI MAMMOGRAM SCREENING TOMOSYNTHESIS BILATERAL Routine 10/07/2024 [...] Maintenance Results * (ABNORMAL) Glucose, Whole Blood (08/25/2025 9:00 AM EDT) Only the most recent of3 resultswithin the time period is included. Glucose, Whole Blood 172(H) 60 - 115 mg/dL [facility] Comment:METER #: [id number] Testing performed in the Endocrinology Department [address] , [address], [facility]. 08/25/2025 9:00 AM EDT 08/25/2025 9:04 AM EDT us Generic External Data Provider LAB BLOOD ORDERAB LES Final Result [facility] [address] [place] [phone] * (ABNORMAL) POCT HGB A1C (06/09/2025 [...] Media Lot # [id number] Lot# Expiration Date Blood Capillary blood specimen / Unknown 06/09/2025 10:04 AM EDT Keely Wilburn MD POINT OF CARE TEST ENTER /EDIT ORDERABLES Final Result * BI Mammogram Screening Tomosynthesis Bilateral (10/07/2024 8:50 AM EST) Anatomical Region Laterality Modality Breast Bilateral Mammography 10/07/2024 8:50 AM EST Narrative 10/16/2024 9:41 AM EST [facility] [place] [address] Mammography Report Signed Patient: Adrianne Landeros MR#: [id number] : 1950 Acct:[id number] Age/Sex: 74 / F ADM Date: 10/07/24 Loc: HO.MAMMO Attending Dr: Keely Wilburn MD Ordering Physician: Keely Wilburn MD Results: 1Ne gative Date of Service: 10/07/24 Follow Up: 1 Year From [facility] ina Mammogram Procedure(s): MM tomosynthesis screening BI Accession Number(s): [id number] cc: Keely Wilburn MD EXAMINATION: MM SCREENING [...] Marylou Goldstein DO in OV> 10/16/24937 DD/ 9 TD/TT: 10/07/24904 Packaging Sales: Procedure Note Donotuseinterpreter, Image - 10/16/2024 [facility] [address] [place] [address] Mammography Report Signed Patient: Adrianne LanderosMR#: [id number] : 8Acct:[id number] Age/Sex: 74 / FADM Date: 10/07/24 Loc: HO.MAMMO Attending Dr: Keely Wilburn MD Ordering Physician: Keely Wilburn MDResults: 1Ne gative Date of Service: 10/07/24Follow Up: 1 Year From Orig ina Mammogram Procedure(s): MM tomosynthesis screening BI Accession Number(s): [id number] cc: Keely Wilburn MD EXAMINATION: MM SCREENING [...] Marylou Goldstein DO in OV> 10/16/24937 DD/ 9 TD/TT: 10/07/24904 Packaging Sales: us Keely Wilburn MD IMG BI PROCEDURES Edited Result - Final * (ABNORMAL) Lipid Panel with Reflex to Direct LDL (08/04/2024 9:55 AM EDT) Triglycerides 174(H) <150 mg/dL [facility] Comment:Desirable Triglyceri de: less than 150 mg/dLBorderline High Triglyceride 150-199 mg/dLHigh Triglyceride: 200-499 mg/dLVery High Triglyceride: greater than or equal to 5OO mg/dL Cholesterol 145 <200 mg/dL [facility] Comment:Desirable Cholestero l: less than 200 mg/dLBorderline High Cholesterol: 200-239 mg/dLHigh Cholesterol: greater than 239 mg/dL LDL Cholesterol Calculated 68 <100 mg/dL [facility] Comment:Desirable LDL: less than 100 mg/dLNear Optimal/Above Optimal LDL: 110- 129 mg/dLBorderline High LDL: 130-159 mg/dLHigh LDL: 160-189 mg/dLVery High LDL: greater than or equal to 190 mg/dL HDL Cholesterol 43 >40 mg/dL [facility] Comment:Desirable HDL: great er than 40 mg/dL Note: This HDL assay may give artificially low results in patients with liver disease. Blood 08/04/2024 9:55 AM EDT 08/04/2024 2:27 PM EDT us Keely Wilburn MD LAB BLOOD ORDERABLES Fin al Result [facility] [address] [place] [phone] * Hepatitis C Antibody with Reflex to HCV, RNA, Quantitative, Real-Time PCR (05/16/2024 11:17 AM EDT) Hepatitis C Antibody Nonreactive Nonreactive [facility] Comment:Antibodies to HCV no t detected; does not exclude early acuteHCV infection. Blood Venous blood specimen / Unknown 05/16/2024 11:17 AM EDT 05/16/2024 1:09 PM EDT us Anusha Real MD LAB BLOOD ORDERABLES Final Res ult [facility] [address] [place] [phone] [phone] * (ABNORMAL) Hm Colonoscopy (02/06/2024) Colonoscopy Abnormal( A) Normal [facility] Comment:Tubular adenoma; neg ative for high grade dysplasia and carcinoma us Keely Wilburn MD HEALTH MAINTENANCE Final Result Performing Organization Address [facility]/ZIP Co de Phone Number [facility] [address] [place] [phone] * OCCULT BLOOD STOOL X3 (11/23/2019 3:00 PM EST) OCCULT BLOOD STOOL-1 NEG NEG [facility] OCCULT BLOOD STOOL-1 DATE 11/20/2019 [facility] OCCULT BLOOD STOOL-2 NEG NEG [facility] OCCULT BLOOD STOOL-2 DATE 11/21/2019 [facility] OCCULT BLOOD STOOL-3 NEG NEG [facility] OCCULT BLOOD STOOL-3 DATE 11/23/2019 [facility] 11/23/2019 3:00 PM EST Keely Wilburn MD HISTORICAL/NON ORDERABLE LABS Final Result Performing Organization Address City/[facility]/ZIP Co de Phone Number [facility] [address] [place] [address], from Last 3 Months or Most Recently Relevant to Health Maintenance Insurance [facility] [employer] OPT[employer] (HMO D-SNP) [place] [id number] Care Teams Lead Esthetician Relationship Specialty Start Date End Date Keely Wilburn MD [address] [place] [phone] PCP - General Family Medicine 10/27/19 [employer] 08/06/24
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
--- OUTSIDE RECORDS SUMMARY | 2025-08-25 09:20 | XMS_ITS | Encounter Summary ---
Author Organization [facility] Address [address] [place] [address] Phone Care Team Providers Care Emergency Management System Director Name Role Phone Keely Wilburn MD Primary Care Provider + [phone] Encounter Details Date Type Department Care Team (Late Contact Info) Description 03/18/2024 Documentation Only [facility] [address] [place] [address] Juju Avila [address] [place] [phone] Social History Tobacco Use Types Packs/Day Years [...] Visit [facility] [address] [place] [address] Terrance Garcia MD [address] [place] [address] [place] [address] documented as of this encounter Visit Diagnoses Not on filedocumented in this encounter Care Teams Emergency Management System Director Relationship Specialty Start Date End Date Keely Wilburn MD [address] [place] [address] PCP - General Internal Medicine 02/11/20 documented as of this encounter
--- OUTSIDE RECORDS SUMMARY | 2025-08-25 09:20 | XMS_ITS | Encounter Summary ---
Author Organization [employer] Address [address] [facility] 7t [place] [address] Care Team Providers Care Hand Hide Stretcher Name Role Phone Keely Wilburn MD Primary Care Provider + Reason for Visit * Reason Onset Date Comments Med Refill 05/07/2025 Encounter Details Date Type Department Care Team ([facility] st Contact Info) Description 05/07/2025 Telephone [facility] [address] [place], [place] [phone] Keely Wilburn MD [address] [place], [place] [phone] Med Refill Social History Tobacco Use Types [...] 0.6 MG tablet To be sent to: [facility]/pharmacy #[id number] [place] [address] documented in this encounter Plan of Treatment Upcoming Encounters Date Type Department Care Team (Late st Contact Info) Description 10/29/2025 10:30 AM EST Office Visit [facility] [address] [place] [address] Keely Wilburn MD [address] [place] [address] documented as of this encounter Visit Diagnoses Not on filedocumented in this encounter Care Teams Hand Hide Stretcher Relationship Specialty Start Date End Date Keely Wilburn MD [address] [place] [address] PCP - General Family Medicine 10/27/19 [employer] 08/06/24 documented as of this encounter
--- OUTSIDE RECORDS SUMMARY | 2025-08-25 09:20 | XMS_ITS | Encounter Summary ---
Author Organization [facility] Address [address] [place] [address] Phone Care Team Providers Care Rustic Fence Builder Name Role Phone Keely Wilburn MD Primary Care Provider + [phone] Encounter Details Date Type Department Care Team (Late st Contact Info) Description 10/11/2021 Documentation Only [facility] [address] [place] [address] Terrance Garcia MD [address] [facility] [place] [address] Social History Tobacco Use Types [...] [facility] [address] [place] [address] Terrance Garcia MD [address] [facility] [place] [address] documented as of this encounter Visit Diagnoses Not on filedocumented in this encounter Care Teams Rustic Fence Builder Relationship Specialty Start Date End Date Keely Wilburn MD [address] [place] [address] PCP - General Internal Medicine 02/11/20 documented as of this encounter
--- OUTSIDE RECORDS SUMMARY | 2025-08-25 09:20 | XMS_ITS | Encounter Summary ---
Author Organization [facility] [place] Address [address] [place] [address] Phone Care Team Providers Care Bottled Beverage Inspector Name Role Phone Keely Wilburn MD Primary Care Provider + [phone] Encounter Details Date Type Department Care Team (Late Contact Info) Description 08/05/2024 Documentation Only [facility] [address] [place] [address] Jaz Jane [place] [address] [place] [phone] Social History Tobacco Use Types Packs/Day Years [...] [facility] [address] [place] [address] Terrance Garcia MD [address] [place] [address] [place] [address] documented as of this encounter Visit Diagnoses Not on filedocumented in this encounter Care Teams Bottled Beverage Inspector Relationship Specialty Start Date End Date Keely Wilburn MD [address] [place] [address] PCP - General Internal Medicine 02/11/20 documented as of this encounter
--- OUTSIDE RECORDS SUMMARY | 2025-08-25 09:20 | XMS_ITS | Encounter Summary ---
Author Organization [facility] Address [address] [place] [address] Phone Care Team Providers Care Manager Sales Name Role Phone Keely Wilburn MD Primary Care Provider + [phone] Encounter Details Date Type Department Care Team (Late Contact Info) Description 03/18/2024 Documentation Only [facility] [address] [place] [address] Juju Avila [address] [place] [phone] Social History Tobacco Use Types Packs/Day Years [...] Visit [facility] [address] [place] [address] Terrance Garcia MD [address] [place] [address] [place] [address] documented as of this encounter Visit Diagnoses Not on filedocumented in this encounter Care Teams Manager Sales Relationship Specialty Start Date End Date Keely Wilburn MD [address] [place] [phone] PCP - General Internal Medicine 02/11/20 documented as of this encounter
--- OUTSIDE RECORDS SUMMARY | 2025-08-25 09:21 | XMS_ITS ---
Author Name Sherry Lucio NP Address [address] [place] [address] Phone [phone] [facility] Care Team Providers Care Senior Windows Systems Administrator Name Role Phone Sherry Lucio Unavailable [phone] Reason for Referral Not Available Allergies, adverse [...] No Data Available BD AUTOSHIELD DUO NDL [id number] USE WITH INSULIN TWICE DAILY 2022-09-05 No Data Meseret ilable Benazepril 20 mg Tab TAKE 1 TABLET (20 M G) BY MOUTH IN THE MORNING. DC BENAZEPRIL/HCTZ 2022-11-16 No Data Available Lantus SoloStar 100 UNIT/ML Solution Pen-injector INJECT 18 UNITS SUBCUTANEOUSLY ONCE DAILY 2023-05-31 No Data Available amLODIPine Besylate 10 mg Tab TAKE 1/2 TABLET BY MOUTH DAILY 2022-08-24 No Data Available Ymlioxihct-KXFO-Wiwapatw 50/325/40 mg Tab TAKE 1 TABLET BY [...] No Data Available BD AUTOSHIELD DUO NDL [id number] USE WITH INSULIN TWICE DAILY 2023-12-25 No [...] and one episode of vomiting this am. [facility] tested member this am and she is [...] health RN. Continue to push pedialite and continuous pickling line pickler zofran. f/u sched 01/21/24-call CB 04/06 for [...] joint pain increased [facility]. [facility] with [facility] [place] as needed for any acute or disease education needs that may arise 04/06.what should be done when the member calls: see each individual diagnosis for contingency plan Encounters Encounters Type Facility Date of Service Diagnosis/Co mplaint New patient,40-59min; chronic exacerbation, 2 stable chronic or 1 acute illness add add modifier 95 for video (do not use for phone, instead use 83168-76) [facility]2023 Severe persistent asthma, uncomplicatedBenign paroxysmal vertigo, [...] (do not use for phone, instead use 98309-07) [facility] New patient,40-59min; chronic exacerbation, 2 stable chronic or 1 acute illness add add modifier 95 for video (do not use for phone, instead use 37079-20) [facility]20[place] New patient,40-59min; chronic exacerbation, 2 stable chronic or 1 acute illness add add modifier 95 for video (do not use for phone, instead use 00330-86) [facility]20[place] New patient,40-59min; chronic exacerbation, 2 stable chronic or 1 acute illness add add modifier 95 for video (do not use for phone, instead use 44125-60) [facility]/2023 New patient,40-59min; chronic exacerbation, 2 stable chronic or 1 acute illness add add modifier 95 for video (do not use for phone, instead use 27783-84) [facility]/2023 New patient,40-59min; chronic exacerbation, 2 stable chronic or 1 acute illness add add modifier 95 for video (do not use for phone, instead use 65564-05) [facility] [place]/2023 New patient,40-59min; chronic exacerbation, 2 stable chronic or 1 acute illness add add modifier 95 for video (do not use for phone, instead use 82844-80) [facility] [place]/04/2023 New patient,40-59min; chronic exacerbation, 2 stable chronic or 1 acute illness add add modifier 95 for video (do not use for phone, instead use 74707-13) [facility] [place]/04/2023 New patient,40-59min; chronic exacerbation, 2 stable chronic or 1 acute illness add add modifier 95 for video (do not use for phone, instead use 31796-85) [facility] 12/04/2023 No Data Available [facility] [place] 01/15/2024 Severe persistent asthma, uncomplicatedUnspecified chronic bronchitis No Data Available [facility] [place] 01/15/2024 No Data Available [facility] 01/17/2024 Severe persistent asthma, uncomplicatedUnspecified chronic bronchitisBenign [...] care No Data Available [facility] [place] 01/17/2024 No Data Available [facility] [place] 01/17/2024 No Data Available [facility] [place] 01/17/2024 No Data Available [facility] [place] 01/18/2024 Severe persistent asthma, uncomplicatedUnspecified chronic bronchitisUnspecified [...] care No Data Available [facility] [place] 01/18/2024 No Data Available [facility] [place] 01/18/2024 No Data Available [facility] [place] 01/18/2024 No Data Available [facility] [place] 01/21/2024 Severe persistent asthma, uncomplicatedUnspecified chronic bronchitisUnspecified [...] and other health care No Data Available [facility] 01/21/2024 Vital Signs Date of Collection Vitals [...] tive Time Current Smoking Status Never smoker 2025-08-12 4 Sex Female History of Procedures Procedures Service Procedure code Service date Servicing provider Phone# New patient,40-59min; chronic exacerbation, 2 stable chronic or 1 acute illness add add modifier 95 for video (do not use for phone, instead use 16312-41) 91254 2023-12-04 No Data Available No Data Availa [...] No Data Avail able No Data Available [id number] 2024-01-15 No Data Available No Data Available Medication List Documented (1159F) 1159F 2024-01-15 No Data Available No Data Meseret ilable No Data Available 2024-01-17 No Data Available No Data Available Medication List Documented (1159F) 1159F 2024-01-17 No Data Available No Data Meesret ilable Functional Status Assessed (1170F) 1170F 2024-01-17 No Data Available No Data Avail able Most recent A1c (HbA1c) or GMI level <7% (3044F) 3044F 2024-01-17 No Data Available No Data Availa ble No Data Available [id number] 2024-01-18 No Data Available No Data Available SBP 130-139 (3075F) 3075F 2024-01-18 No Data Availabl e No Data Available DBP <80 (3078F) 3078F 2024-01-18 No Data Available No Data Available Functional Status Assessed (1170F) 1170F 2024-01-18 No Data Available No Data Avail able No Data Available [id number] 2024-01-21 No Data Available No Data Available [...] and one episode of vomiting this am. [facility] tested member this am and she is [...] and one episode of vomiting this am. [facility] tested member this am and she is [...] health RN. Continue to push pedialite and continuous pickling line pickler zofran. f/u sched 01/21/24-call CB 04/06 for [...] and one episode of vomiting this am. [facility] tested member this am and she is [...] health RN. Continue to push pedialite and continuous pickling line pickler zofran. f/u sched 01/21/24-call CB 04/06 for [...]
--- OUTSIDE RECORDS SUMMARY | 2025-08-25 09:21 | XMS_ITS | Encounter Summary ---
Author Organization [employer] Address [address] [facility] 7t [place] [address] Care Team Providers Care Circus Train Supervisor Name Role Phone Keely Wilburn MD Primary Care Provider + Reason for Visit * Reason Onset Date Comments Referral 12/08/2024 order 12/08/2024 Encounter Details Date Type Department Care Team (Late st Contact Info) Description 12/08/2024 Telephone [facility] MED[facility]INE [address] [place], [place] [phone] Keely Wilbrun MD [address] [place], [place] [phone] Referral; order Social History Tobacco Use Types [...] more info provided. Any questions contact Ashlyn Colombian documented in this encounter Plan of Treatment Upcoming Encounters Date Type Department Care Team ([facility] st Contact Info) Description 10/29/2025 10:30 AM EST Office Visit [facility] [address] [place] [address] Keely Wilburn MD [address] [place] [address] documented as of this encounter Visit Diagnoses Not on filedocumented in this encounter Care Teams Circus Train Supervisor Relationship Specialty Start Date End Date Keely Wilburn MD [address] [place] [address] PCP - General Family Medicine 10/27/19 [employer] 08/06/24 documented as of this encounter
--- OUTSIDE RECORDS SUMMARY | 2025-08-25 09:21 | XMS_ITS | Encounter Summary ---
Author Organization [employer] Address [address] [facility] 7t [place] [address] Care Team Providers Care Criminal Court Judge Name Role Phone Keely Wilburn MD Primary Care Provider + Reason for Visit * Reason Comments Med Refill Encounter Details Date Type Department Care Team (Late st Contact Info) Description 05/08/2024 Refill [facility] MED[facility]INE [address] [place], [place] [phone] Keely Wilburn MD [address] [place], [place] [phone] Osteopenia of neck of femur, unspecified laterality [...] Description 10/29/2025 10:30 AM EST Office Visit [facility] MEDICINE [address] [place] [address] Keely Wilburn MD [address] [place] [address] documented as of this encounter Visit Diagnoses Diagnosis Osteopenia of neck of femur, unspecified laterality documented in this encounter Care Teams Criminal Court Judge Relationship Specialty Start Date End Date Keely Wilburn MD [address] [place] [phone] PCP - General Family Medicine 10/27/19 [employer] 08/06/24 documented as of this encounter
--- OUTSIDE RECORDS SUMMARY | 2025-08-25 09:21 | XMS_ITS | Encounter Summary ---
Author Organization [employer] Address [address] [facility] 7t [place] [address] Care Team Providers Care Mechanic'S Assistant Name Role Phone Keely Wilburn MD Primary Care Provider + Reason for Visit * Reason Onset Date Comments October recall 08/20/2025 Encounter Details Date Type Department Care Team ([facility] st Contact Info) Description 08/20/2025 Telephone [facility] MEDICINE [address] [place], [place] [phone] Keely Wilburn MD [address] [place], [place] [phone] October recall Social History Tobacco Use Types Packs/Day Years [...] encounter Miscellaneous Notes * Telephone Encounter - Bethany [place] - 08/20/2025 2:44 PM EDT Telephone call to patient daughter Ashlyn to schedule the following recall: Visit type: Office visit Appointment notes: HTN and weight Patient agree to appointment on 10/29/2025 at 10:30 AM with [employer]. documented in this encounter Plan of Treatment Upcoming Encounters Date Type Department Care Team (Late st Contact Info) Description 10/29/2025 10:30 AM EST Office Visit [facility] MEDICINE [address] [place] [address] Keely Wilburn MD [address] [place] [address] documented as of this encounter Visit Diagnoses Not on filedocumented in this encounter Care Teams Mechanic'S Assistant Relationship Specialty Start Date End Date Keely Wilburn MD [address] [place] [phone] PCP - General Family Medicine 10/27/19 [employer] 08/06/24 documented as of this encounter
--- OUTSIDE RECORDS SUMMARY | 2025-08-25 09:21 | XMS_ITS | Encounter Summary ---
Author Organization [employer] Address [address] [facility] [address] 7t [place] [address] Care Team Providers Care Senior Ux Developer Name Role Phone Keely Wilburn MD Primary Care Provider + Encounter Details Date Type Department Care Team (Late st Contact Info) Description 08/25/2025 Orders Only GENERIC EXTERNAL DATA [...] Description 10/29/2025 10:30 AM EST Office Visit [facility] MED[facility]INE [address] [place] [address] Keely Wilburn MD [address] [place] [address] documented as of this encounter Procedures Procedure Name Priority Date/Time Associated Diagnosis Comments GLUCOSE, WHOLE BLOOD Routine 08/25/2025 9:00 AM EDT documented in this encounter Results * (ABNORMAL) Glucose, Whole Blood (08/25/2025 9:00 AM EDT) Glucose, Whole Blood 172(H) 60 - 115 mg/dL [facility] Comment:METER #: [id number] Testing performed in the Endocrinology Department [address] , [address], [facility]. 08/25/2025 9:00 AM EDT 08/25/2025 9:04 AM EDT us Generic External Data Provider LAB BLOOD ORDERAB LES Final Result [facility] [address] [place] [address] [phone] documented in this encounter Visit Diagnoses Not on filedocumented in this encounter Care Teams Senior Ux Developer Relationship Specialty Start Date End Date Keely Wilburn MD [address] [place] [address] PCP - General Family Medicine 10/27/19 [employer] 08/06/24 documented as of this encounter
--- OUTSIDE RECORDS SUMMARY | 2025-08-25 09:21 | XMS_ITS | Encounter Summary ---
Author Organization [employer] Address [address] [facility] 7t [place] [address] Care Team Providers Care Vehicle Cost Engineer Name Role Phone Keely Wilburn MD Primary Care Provider + Reason for Visit * Reason Comments Med Refill Encounter Details Date Type Department Care Team (Late st Contact Info) Description 01/25/2025 Refill [facility] MEDICINE [address] [place], [place] [phone] Keely Wilburn MD [address] [place], [place] [phone] Social History Tobacco Use Types Packs/Day Years [...] Description 10/29/2025 10:30 AM EST Office Visit [facility] MEDICINE [address] [place] [phone] Keely Wilburn MD [address] [place] [phone] documented as of this encounter Visit Diagnoses Not on filedocumented in this encounter Care Teams Vehicle Cost Engineer Relationship Specialty Start Date End Date Keely Wilburn MD [address] [place] [phone] PCP - General Family Medicine 10/27/19 [employer] 08/06/24 documented as of this encounter
--- OUTSIDE RECORDS SUMMARY | 2025-08-25 09:21 | XMS_ITS | Encounter Summary ---
Author Organization [employer] Address [address] [facility] 7t [place] [address] Care Team Providers Care Ear Specialist Name Role Phone Keely Wilburn MD Primary Care Provider + Reason for Visit * Reason Comments Med Change Request Encounter Details Date Type Department Care Team (Late st Contact Info) Description 11/06/2023 Refill [facility] MED[facility]INE [address] [place], [place] [phone] Keely Wilburn MD [address] [place], [place] [phone] Osteopenia of neck of femur, unspecified laterality [...] Description 10/29/2025 10:30 AM EST Office Visit [facility] MEDICINE [address] [place] [phone] Keely Wilburn MD [address] [place] [address] documented as of this encounter Visit Diagnoses Diagnosis Osteopenia of neck of femur, unspecified laterality documented in this encounter Care Teams Ear Specialist Relationship Specialty Start Date End Date Keely Wilburn MD [address] [place] [phone] PCP - General Family Medicine 10/27/19 [employer] 08/06/24 documented as of this encounter
--- OUTSIDE RECORDS SUMMARY | 2025-08-25 09:21 | XMS_ITS | Encounter Summary ---
Author Organization [employer] Address [address] [facility] 7t [place] [address] Care Team Providers Care Policy Adviser Name Role Phone Keely Wilburn MD Primary Care Provider + Encounter Details Date Type Department Care Team (Late st Contact Info) Description 05/07/2024 Telephone [facility] MEDICINE [address] [place], [place] [phone] Keely Wilburn MD [address] [place], [place] [phone] Social History Tobacco Use Types Packs/Day Years [...] contact # if there is any questions [phone] documented in this encounter Plan of Treatment Upcoming Encounters Date Type Department Care Team (Late st Contact Info) Description 10/29/2025 10:30 AM EST Office Visit [facility] MEDICINE [address] [place] [address] Keely Wilburn MD [address] [place] [address] documented as of this encounter Visit Diagnoses Not on filedocumented in this encounter Care Teams Policy Adviser Relationship Specialty Start Date End Date Keely Wilburn MD [address] [place] [phone] PCP - General Family Medicine 10/27/19 [employer] 08/06/24 documented as of this encounter
--- OUTSIDE RECORDS SUMMARY | 2025-08-25 09:21 | XMS_ITS | Encounter Summary ---
Author Organization [employer] Address [address] [facility] 7t [place] [address] Care Team Providers Care Program Management Manager Name Role Phone Keely Wilburn MD Primary Care Provider + Reason for Visit * Reason Comments Med Refill Encounter Details Date Type Department Care Team (Late st Contact Info) Description 01/18/2024 Refill [facility] MEDICINE [address] [place], [place] [phone] Keely Wilburn MD [address] [place], [place] [phone] Other postherpetic nervous system involvement Social History [...] Description 10/29/2025 10:30 AM EST Office Visit [facility] MEDICINE [address] [place] [phone] Keely Wilburn MD [address] [place] [phone] documented as of this encounter Visit Diagnoses Diagnosis Other postherpetic nervous system involvement documented in this encounter Care Teams Program Management Manager Relationship Specialty Start Date End Date Keely Wilburn MD [address] [place] [phone] PCP - General Family Medicine 10/27/19 [employer] 08/06/24 documented as of this encounter
--- OUTSIDE RECORDS SUMMARY | 2025-08-25 09:21 | XMS_ITS | Encounter Summary ---
Author Organization [employer] Address [address] [facility] 7t [place] [address] Care Team Providers Care Carton Catcher Name Role Phone Keely Wilburn MD Primary Care Provider + Encounter Details Date Type Department Care Team (Late Contact Info) Description 07/10/2023 Telephone [facility] MEDICINE [address] [place] [address] [phone] Katty Gutierrez LPN Social History Tobacco Use [...] Description 10/29/2025 10:30 AM EST Office Visit [facility] MED[facility]INE [address] [place] [address] [phone] Keely Wilburn MD [address] [place] [address] documented as of this encounter Visit Diagnoses Not on filedocumented in this encounter Care Teams Carton Catcher Relationship Specialty Start Date End Date Keely Wilburn MD [address] [place] [phone] PCP - General Family Medicine 10/27/19 [employer] 08/06/24 documented as of this encounter
--- OUTSIDE RECORDS SUMMARY | 2025-08-25 09:21 | XMS_ITS | Encounter Summary ---
Author Organization [employer] Address [address] [facility] 7t [place] [address] Care Team Providers Care Lens Fabricating Machine Tender Name Role Phone Keely Wilburn MD Primary Care Provider + Encounter Details Date Type Department Care Team (Late st Contact Info) Description 11/08/2023 Abstract [facility] MEDICINE [address] [place], [place] [phone] Keely Wilburn MD [address] [place], [place] [phone] Social History Tobacco Use Types Packs/Day Years [...] Description 10/29/2025 10:30 AM EST Office Visit [facility] MEDICINE [address] [place] [phone] Keely Wilburn MD [address] [place] [phone] documented as of this encounter Visit Diagnoses Not on filedocumented in this encounter Care Teams Lens Fabricating Machine Tender Relationship Specialty Start Date End Date Keely Wilburn MD [address] [place] [phone] PCP - General Family Medicine 10/27/19 [facility] 08/06/24 documented as of this encounter
--- OUTSIDE RECORDS SUMMARY | 2025-08-25 09:21 | XMS_ITS | Encounter Summary ---
Author Organization [employer] Address [address] [facility] 7t [place] [address] Care Team Providers Care Home Health Assistant Name Role Phone Keely Wilburn MD Primary Care Provider + Reason for Visit * Reason Comments Med Change Request Encounter Details Date Type Department Care Team ([facility] st Contact Info) Description 11/09/2023 Refill [facility] [address] [place], [place] [phone] Kaci Le, [address] [place] [address] Type 2 diabetes mellitus with other specified complication, unspecified whether long term care social worker insulin use (CMS/[facility]) Social History Tobacco Use [...] 10:30 AM EST Office Visit [facility] MEDICINE [address] [place] [address] Keely Wilburn MD [address] [place] [address] documented as of this encounter Visit Diagnoses Diagnosis Type 2 diabetes mellitus with other specified complication, unspecified whether long term care social worker insulin use (HCC) documented in this encounter Care Teams Home Health Assistant Relationship Specialty Start Date End Date Keely Wilburn MD [address] [place] [address] [phone] PCP - General Family Medicine 10/27/19 [employer] 08/06/24 documented as of this encounter
--- OUTSIDE RECORDS SUMMARY | 2025-08-25 09:21 | XMS_ITS | Clinical Summary ---
Author Organization [address] [place] [address] Address [address] [place] [address] Phone Care Team Providers Care Manuscript Reader Name Role Phone Keely Wilbrun MD Primary Care Provider Allergies Active Allergy [...] DR capsule 1 Active DIABETIC SUPPLIES, [place]. [facility] ONE TOUCH BASIC STRIPS Active lancets lancets [...] mellitus type 2, un complicated (CMS/[facility] V24, CMS/[facility] V28) 10/03/2024 Hypertension 10/03/2024 Closed fracture of lower end of humerus 08/11/20 10 Overview (10/03/2024): IMO update Encounters Date Type Department Care Team Description 07/02/2025 9:00 AM EDT Office Visit Orthopedic Surgery - [address] [phone] Cr Bolton DPM Controlled type 2 diabetes with neuropathy (CMS/[facility] V24, CMS/[facility] V28) (Primary Dx); PVD (peripheral vascular disease) ([facility] V24); Arthritis of both feet; Tinea pedis of both feet; Dermatophytosis, nail from Last 3 Months Surgical History Surgery Date Site/Laterality Comments OTHER SURGICAL HISTORY PROCEDURE: DENIES PREVIOUS SURGERY OTHER SURGICAL HISTORY PROCEDURE: HI LIG/TRNSXJ FLP TUBE ABDL/VAG APPR UNI/BI Medical History Medical History Date Comments Asthma DX:Asthma High blood pressure DX:High bloo d pressure Anemia DX:Anemia Anxiety state DX:Anxiety state Hypertension DX:Hypertension Hypertension DX:Hypertension Diabetes mellitus type 2, un complicated ([facility]/HCC V24, CMS/HCC V28) DX:Diabetes mellitus type 2 , uncomplicated ([facility]) Esophageal reflux DX:Esophageal reflux Hyperlipidemia DX:Hyperlipidemi a [...] Care Team (Late st Contact Info) Description 08/28/2025 10:45 AM EDT Office Visit Orthopedic Surgery [facility] 175 [facility] [address] [place] [phone] Eloisa Chaudhari PA [address] [place] [phone] 10/05/2025 8:15 AM EST Office Visit Orthopedic Surgery [facility] 250 175 [facility] 250 [place] [phone] Cr Bolton DPM 175 [facility] 250 [place] [address] Health Maintenance Due Date Last Done Comments [...] Test (03/24/2022) Annual BMP Blood Test abstracted [facility] Provider MD HEALTH MAINTENANCE Final Result * Colonoscopy (09/12/2018) Colonoscopy no interpretation , abstracted Anatomical Region Laterality Modality Other [facility] Provider MD HEALTH MAINTENANCE Final Result * (ABNORMAL) Hemoglobin A1c (07/12/2018) Pathologist [facility] Hemoglobin A1C 6.5(A) 4.0 - 6.0 % Blood Venous blood specimen / Unknown [facility] Provider LAB BLOOD ORDERABLES Meka l Result from Last 3 Months or Most Recently Relevant to Health Maintenance Insurance [facility] MEDICARE Member Subscriber Plan / Payer (Ef fective 2024-Present) Name:Adrianne Landeros Relation to Subscriber:Self Name:Adrianne Landeros Payer ID:[id number] Group ID:[id number] Type:Not on file Address: [address] [id number] Advance Directives Documents on File Type Date Recorded Patient Pressure Steamer Tender Expl anation Health Care Decision (hx) 04/22/2018 [...] (hx) 04/22/2018 AD BECKWITH DIRECTIVE Care Teams Manuscript Reader Relationship Specialty Start Date End Date Keely Wilburn MD [address] [place] [phone] PCP - General 03/01/22
--- OUTSIDE RECORDS SUMMARY | 2025-08-25 09:21 | XMS_ITS | Encounter Summary ---
Author Organization [employer] Address 75 [facility] 7t [place] [address] Care Team Providers Care Marketing Systems Analyst Name Role Phone Keely Wilburn MD Primary Care Provider + Reason for Visit * Reason Comments Med Refill Encounter Details Date Type Department Care Team (Late st Contact Info) Description 12/09/2023 Refill [facility] 230 [place], [place] [phone] Keely Wilburn MD 230 [place], [place] [phone] Osteopenia of neck of femur, unspecified laterality [...] Description 10/29/2025 10:30 AM EST Office Visit [facility] [address] [place] [address] Keely Wilburn MD [address] [place] [address] documented as of this encounter Visit Diagnoses Diagnosis Osteopenia of neck of femur, unspecified laterality documented in this encounter Care Teams Marketing Systems Analyst Relationship Specialty Start Date End Date Keely Wilburn MD [address] [place] [address] PCP - General Family Medicine 10/27/19 [employer] 08/06/24 documented as of this encounter
--- OUTSIDE RECORDS SUMMARY | 2025-08-25 09:21 | XMS_ITS | Encounter Summary ---
Author Organization [employer] Address 75 [facility] 7t [place] [address] Care Team Providers Care Rural Sociologist Name Role Phone Keely Wilburn MD Primary Care Provider + Reason for Visit * Reason Onset Date Comments Hospital Follow-up 12/08/2024 Encounter Details Date Type Department Care Team ([facility] st Contact Info) Description 12/08/2024 Telephone [facility] 230 [place], [place] [phone] Keely Wilburn MD 230 [place], [place] [phone] Hospital Follow-up Social History Tobacco Use Types [...] pt daughter requesting a HDF appt. Hospital: [place], [place] Date of admission: 12/02 Discharge date: 12/05 Diagnosed: Diarrhea, Vomiting, Abdominal Pain, Chest Pain, Dizziness *Send message to [place] Clinical Care Coordinators documented in this encounter Plan of Treatment Upcoming Encounters Date Type Department Care Team (Late st Contact Info) Description 10/29/2025 10:30 AM EST Office Visit [facility] [address] [place] [address] Keely Wilburn MD 230 [place] [address] documented as of this encounter Visit Diagnoses Not on filedocumented in this encounter Care Teams Rural Sociologist Relationship Specialty Start Date End Date Keely Wilburn MD [address] [place] [address] PCP - General Family Medicine 10/27/19 [employer] 08/06/24 documented as of this encounter
--- OUTSIDE RECORDS SUMMARY | 2025-08-25 09:22 | XMS_ITS | Encounter Summary ---
Author Organization [employer] Address 75 [facility] 7t [place] [address] Care Team Providers Care It Service Technician Name Role Phone Keely Wilburn MD Primary Care Provider + Reason for Visit * Reason Comments Med Refill Encounter Details Date Type Department Care Team (Late st Contact Info) Description 07/09/2024 Refill [facility] 230 [place], [place] [phone] Keely Wilburn MD 230 [place], [place] [phone] Slow transit constipation; Type 2 diabetes mellitus with hyperglycemia, with long-term current use of insulin ([facility]) Social History Tobacco Use Types Packs/Day Years [...] Description 10/29/2025 10:30 AM EST Office Visit [facility] 230 [place] [address] Keely Wilburn MD 230 [place] [address] documented as of this encounter Visit Diagnoses Diagnosis Slow transit constipation Type 2 diabetes mellitus with hyperglycemia, with long-term current use of insulin (HCC) documented in this encounter Care Teams It Service Technician Relationship Specialty Start Date End Date Keely Wilburn MD [address] [place] [phone] PCP - General Family Medicine 10/27/19 [employer] 08/06/24 documented as of this encounter
--- OUTSIDE RECORDS SUMMARY | 2025-08-25 09:22 | XMS_ITS | Encounter Summary ---
Author Organization [facility] Address [address] [place] [address] Phone Care Team Providers Care Detective Bowling Alley Name Role Phone Keely Wilburn MD Primary Care Provider + [phone] Encounter Details Date Type Department Care Team (Late Contact Info) Description 03/26/2025 Documentation Only [facility] [address] [place] [address] Juju Avila [address] [place] [phone] Social History Tobacco Use Types Packs/Day Years [...] [facility] [address] [place] [address] Terrance Garcia MD [address] [place] [address] [place] [address] documented as of this encounter Visit Diagnoses Not on filedocumented in this encounter Care Teams Detective Bowling Alley Relationship Specialty Start Date End Date Keely Wilburn MD [address] [place] [phone] PCP - General Internal Medicine 02/11/20 documented as of this encounter
--- OUTSIDE RECORDS SUMMARY | 2025-08-25 09:22 | XMS_ITS | Encounter Summary ---
Author Organization [employer] Address 75 [facility] 7t [place] [address] Care Team Providers Care Tree Shear Operator Name Role Phone Keely Wilburn MD Primary Care Provider + Reason for Visit * Reason Comments Med Refill Encounter Details Date Type Department Care Team (Late st Contact Info) Description 08/18/2024 Refill [facility] 230 [place], [place] [phone] Keely Wilburn MD 230 [place], [place] [phone] Benign paroxysmal positional vertigo, unspecified laterality; Type 2 diabetes mellitus with other specified complication, unspecified whether detention insulin use ([facility]) Social History Tobacco Use Types Packs/Day Years [...] Description 10/29/2025 10:30 AM EST Office Visit [facility] [address] [place] [phone] Keely Wilburn MD 230 [place] [address] documented as of this encounter Visit Diagnoses Diagnosis Benign paroxysmal positional vertigo, unspecified laterality Type 2 diabetes mellitus with other specified complication, 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
--- OUTSIDE RECORDS SUMMARY | 2025-08-25 09:22 | XMS_ITS | Encounter Summary ---
Author Organization [employer] Address 75 [facility] 7t [place] [address] Care Team Providers Care Net Software Engineer Name Role Phone Keely Wilburn MD Primary Care Provider + Reason for Visit * Reason Comments Med Refill Encounter Details Date Type Department Care Team (Late st Contact Info) Description 07/08/2024 Refill [facility] 230 [place], [place] [phone] Anusha Real MD 230 [place], [place] [phone] Benign paroxysmal positional vertigo, unspecified laterality Social [...] Description 10/29/2025 10:30 AM EST Office Visit [facility] [address] [place] [phone] Keely Wilburn MD [address] [place] [address] documented as of this encounter Visit Diagnoses Diagnosis Benign paroxysmal positional vertigo, unspecified laterality documented in this encounter Care Teams Net Software Engineer Relationship Specialty Start Date End Date Keely Wilburn MD [address] [place] [phone] PCP - General Family Medicine 10/27/19 [employer] 08/06/24 documented as of this encounter
--- OUTSIDE RECORDS SUMMARY | 2025-08-25 09:22 | XMS_ITS | Encounter Summary ---
Author Organization [employer] Address 75 [facility] 7t [place] [address] Care Team Providers Care Pet Sitting Name Role Phone Keely Wilburn MD Primary Care Provider + Reason for Visit * Reason Comments Med Refill Encounter Details Date Type Department Care Team (Late st Contact Info) Description 08/06/2024 Refill [facility] 230 [place], [place] [phone] Keely Wilburn MD 230 [place], [place] [phone] Benign paroxysmal positional vertigo, unspecified laterality Social [...] Description 10/29/2025 10:30 AM EST Office Visit [facility] [address] [place] [address] Keely Wilburn MD [address] [place] [address] documented as of this encounter Visit Diagnoses Diagnosis Benign paroxysmal positional vertigo, unspecified laterality documented in this encounter Care Teams Pet Sitting Relationship Specialty Start Date End Date Keely Wilburn MD [address] [place] [phone] PCP - General Family Medicine 10/27/19 [employer] 08/06/24 documented as of this encounter
--- OUTSIDE RECORDS SUMMARY | 2025-08-25 09:22 | XMS_ITS | Encounter Summary ---
Author Organization [employer] Address 75 [facility] 7t [place] [address] Care Team Providers Care Kids Club Attendant Name Role Phone Keely Wilburn MD Primary Care Provider + Reason for Visit * Reason Comments Med Refill Encounter Details Date Type Department Care Team (Late st Contact Info) Description 07/16/2024 Refill [facility] 230 [place], [place] [phone] Keely Wilburn MD 230 [place], [place] [phone] Type 2 diabetes mellitus with hyperglycemia, with long-term current use of insulin ([facility]) Social History Tobacco Use Types Packs/Day Years [...] Description 10/29/2025 10:30 AM EST Office Visit [facility] [address] [place] [address] Keely Wilburn MD 230 [place] [address] documented as of this encounter Visit Diagnoses Diagnosis Type 2 diabetes mellitus with hyperglycemia, with long-term current use of insulin (HCC) documented in this encounter Care Teams Kids Club Attendant Relationship Specialty Start Date End Date Keely Wilburn MD [address] [place] [phone] PCP - General Family Medicine 10/27/19 [employer] 08/06/24 documented as of this encounter
--- OUTSIDE RECORDS SUMMARY | 2025-08-25 09:22 | XMS_ITS | Encounter Summary ---
Author Organization [facility] Address [address] [place] [address] Phone Care Team Providers Care Insurance Writer Name Role Phone Keely Wilburn MD Primary Care Provider + [phone] Encounter Details Date Type Department Care Team (Late Contact Info) Description 03/06/2025 Documentation Only [facility] [address] [place] [address] Juju Avila [address] [place] [phone] Social History Tobacco Use Types Packs/Day Years [...] [facility] [address] [place] [address] Terrance Garcia MD [address] [place] [address] [place] [address] documented as of this encounter Visit Diagnoses Not on filedocumented in this encounter Care Teams Insurance Writer Relationship Specialty Start Date End Date Keely Wilburn MD [address] [place] [phone] PCP - General Internal Medicine 02/11/20 documented as of this encounter
--- OUTSIDE RECORDS SUMMARY | 2025-08-25 09:22 | XMS_ITS | Encounter Summary ---
Author Organization [employer] Address 75 [facility] 7t [place] [address] Care Team Providers Care Wool Washing Machine Operator Name Role Phone Keely Wilburn MD Primary Care Provider + Reason for Visit * Reason Comments Med Refill Encounter Details Date Type Department Care Team (Late st Contact Info) Description 07/08/2024 Refill [facility] 230 [place], [place] [phone] Keely Wilburn MD 230 [place], [place] [phone] Type 2 diabetes mellitus with hyperglycemia, with long-term current use of insulin ([facility]); Slow transit constipation Social History [...] 10/29/2025 10:30 AM EST Office Visit [facility] 230 [place] [address] Keely Wilburn MD 230 [place] [address] documented as of this encounter Visit Diagnoses Diagnosis Type 2 diabetes mellitus with hyperglycemia, with long-term current use of insulin (HCC) Slow transit constipation documented in this encounter Care Teams Wool Washing Machine Operator Relationship Specialty Start Date End Date Keely Wilburn MD [address] [place] [address] PCP - General Family Medicine 10/27/19 [employer] 08/06/24 documented as of this encounter
--- OUTSIDE RECORDS SUMMARY | 2025-08-25 09:22 | XMS_ITS | Encounter Summary ---
Author Organization [employer] Address 75 [facility] 7t [place] [address] Care Team Providers Care Slip Box Changer Name Role Phone Keely Wilburn MD Primary Care Provider + Reason for Visit * Reason Comments Med Refill Encounter Details Date Type Department Care Team (Late st Contact Info) Description 08/13/2024 Refill [facility] 230 [place], [place] [phone] Keely Wilburn MD 230 [place], [place] [phone] Benign paroxysmal positional vertigo, unspecified laterality; Type 2 diabetes mellitus with other specified complication, unspecified whether custodial insulin use ([facility]) Social History Tobacco Use [...] 10/29/2025 10:30 AM EST Office Visit [facility] [address] [place] [address] Keely Wilburn MD 230 [place] [address] documented as of this encounter Visit Diagnoses Diagnosis Benign paroxysmal positional vertigo, unspecified laterality Type 2 diabetes mellitus with other specified complication, unspecified whether technician terminal and repeater insulin use (HCC) documented in this encounter Care Teams Slip Box Changer Relationship Specialty Start Date End Date Keely Wilburn MD [address] [place] [phone] PCP - General Family Medicine 10/27/19 [employer] 08/06/24 documented as of this encounter
--- OUTSIDE RECORDS SUMMARY | 2025-08-25 09:22 | XMS_ITS | Encounter Summary ---
Author Organization [employer] Address 75 [facility] 7t [place] [address] Care Team Providers Care Dental Hygienist Mobile Coordinator Name Role Phone Keely Wilburn MD Primary Care Provider + Reason for Visit * Reason Comments Med Refill Encounter Details Date Type Department Care Team (Late st Contact Info) Description 07/22/2025 Refill [facility] 230 [place], [place] [phone] Keely Wilburn MD 230 [place], [place] [phone] Social History Tobacco Use Types Packs/Day Years [...] Description 10/29/2025 10:30 AM EST Office Visit [facility] [address] [place] [phone] Keely Wilburn MD 230 [place] [address] documented as of this encounter Visit Diagnoses Not on filedocumented in this encounter Care Teams Dental Hygienist Mobile Coordinator Relationship Specialty Start Date End Date Keely Wilburn MD [address] [place] [phone] PCP - General Family Medicine 10/27/19 [employer] 08/06/24 documented as of this encounter
--- OUTSIDE RECORDS SUMMARY | 2025-08-25 09:22 | XMS_ITS | Encounter Summary ---
Author Organization [employer] Address 75 [facility] 7t [place] [address] Care Team Providers Care Control Clerk Head Name Role Phone Keely Wilburn MD Primary Care Provider + Reason for Visit * Reason Comments Med Refill Encounter Details Date Type Department Care Team (Late st Contact Info) Description 08/20/2024 Refill [facility] 230 [place], [place] [phone] Keely Wilburn MD 230 [place], [place] [phone] Benign paroxysmal positional vertigo, unspecified laterality; Type 2 diabetes mellitus with other specified complication, unspecified whether skilled nursing insulin use ([facility]) Social [...] 10/29/2025 10:30 AM EST Office Visit [facility] [address] [place] [address] Keely Wilburn MD 230 [place] [address] documented as of this encounter Visit Diagnoses Diagnosis Benign paroxysmal positional vertigo, unspecified laterality Type 2 diabetes mellitus with other specified complication, 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
--- OUTSIDE RECORDS SUMMARY | 2025-08-25 09:22 | XMS_ITS | Encounter Summary ---
Author Organization [employer] Address 75 [facility] 7t [place] [address] Care Team Providers Care Lead Quality Control Technician Name Role Phone Keely Wilburn MD Primary Care Provider + Reason for Visit * Reason Comments Med Refill Encounter Details Date Type Department Care Team (Late st Contact Info) Description 08/11/2024 Refill [facility] 230 [place], [place] [phone] Keely Wilburn MD 230 [place], [place] [phone] Benign paroxysmal positional vertigo, unspecified laterality Social [...] Description 10/29/2025 10:30 AM EST Office Visit [facility] [address] [place] [address] Keely Wilburn MD [address] [place] [address] documented as of this encounter Visit Diagnoses Diagnosis Benign paroxysmal positional vertigo, unspecified laterality documented in this encounter Care Teams Lead Quality Control Technician Relationship Specialty Start Date End Date Keely Wilburn MD [address] [place] [address] PCP - General Family Medicine 10/27/19 [employer] 08/06/24 documented as of this encounter
== END 2025-08-25 09:32 | disposition home or self-care (01) ==
LOC: HO.ENCR 08:49
PROVIDERS: PCP Internal Medicine; Visit Provider Physician Assistant Medical
DX: E11.29 Type 2 diabetes mellitus with other diabetic kidney complication (principal); E66.813 Obesity, class 3; I10 Essential (primary) hypertension; E78.5 Hyperlipidemia, unspecified

== ENCOUNTER → 2025-08-25 08:48 | Outpatient (BNVA) | payer OTHER, SELFPAY | PROVIDERS: PCP Internal Medicine; Visit Provider Physician Assistant Medical | DX: I10 Essential (primary) hypertension (principal); E11.29 Type 2 diabetes mellitus with other diabetic kidney complication; E66.813 Obesity, class 3; E78.5 Hyperlipidemia, unspecified | CPT/HCPCS: 82947; 99212 ==

== ENCOUNTER 2025-10-01 09:07 | Outpatient (REF) | payer OTHER, SELFPAY ==
[2025-10-01 10:36] LABS: MANUAL DIFF FLAG NO
[2025-10-01 10:45] LABS: Hematocrit 34.7 % (37.0-47.0); Hemoglobin 11.0 g/dl (12.0-16.0); Imm Gran Abs Auto 0.03 X10*3/uL (0.00-0.03); Imm Gran Pct Auto 0.4 % (0.0-0.4); Lymphocytes Absolute Auto 2.8 X10*3/uL (1.2-4.9); Mean Corpuscular HGB Conc 31.7 g/dl (31.0-35.0); Mean Corpuscular Hemoglobin 27.6 pg (27.0-33.0); Mean Corpuscular Volume 87.2 fL (80.0-98.0); NRBC Abs Auto 0.000 X10*3/uL (0.0-0.012); NRBC Pct Auto 0.0 /100WBC (0.0-0.2); Platelet Count 271 X10*3/uL (160-400); Red Blood Count 3.98 X10*6/uL (4.20-5.50); White Blood Count 7.8 X10*3/uL (4.8-10.8)
--- OUTSIDE RECORDS SUMMARY | 2025-10-01 11:13 | XMS_ITS | Encounter Summary ---
Author Organization [facility] Address [address] [place] [address] Phone Care Team Providers Care Residential Construction Instructor Name Role Phone Keely Wilburn MD Primary Care Provider + [phone] Encounter Details Date Type Department Care Team (Late Contact Info) Description 08/05/2024 Documentation Only [facility] [address] [place] [address] Jaz Jane HI [address] [place] [phone] Social History Tobacco Use Types Packs/Day Years [...] Care Team (Late st Contact Info) Description 03/22/2026 1:45 PM EDT Office Visit [facility] [address] [place] [address] Terrance Garcia MD [address] [facility] [place] [address] documented as of this encounter Visit Diagnoses Not on filedocumented in this encounter Care Teams Residential Construction Instructor Relationship Specialty Start Date End Date Keely Wilburn MD [address] [place] [phone] PCP - General Internal Medicine 02/11/20 documented as of this encounter
--- OUTSIDE RECORDS SUMMARY | 2025-10-01 11:13 | XMS_ITS | Encounter Summary ---
Author Organization [facility] Address [address] [place] [address] Phone Care Team Providers Care Registered Nurse Renal Name Role Phone Keely Wilburn MD Primary Care Provider + [phone] Encounter Details Date Type Department Care Team (Late Contact Info) Description 03/18/2024 Documentation Only [facility] [address] [place] [address] Juju Avila [address] [place] [phone] Social History Tobacco Use Types Packs/Day Years [...] [facility] [address] [place] [address] Terrance Garcia MD [address] [place] [address] [place] [address] documented as of this encounter Visit Diagnoses Not on filedocumented in this encounter Care Teams Registered Nurse Renal Relationship Specialty Start Date End Date Keely Wilburn MD [address] [place] [phone] PCP - General Internal Medicine 02/11/20 documented as of this encounter
--- OUTSIDE RECORDS SUMMARY | 2025-10-01 11:13 | XMS_ITS | Encounter Summary ---
Author Organization [facility] Address [address] [place] [address] Phone Care Team Providers Care Edge Blacker Name Role Phone Keely Wilburn MD Primary Care Provider + [phone] Encounter Details Date Type Department Care Team (Late Contact Info) Description 03/18/2024 Documentation Only [facility] [address] [place] [address] Juju Avila [address] [place] [phone] Social History Tobacco Use Types Packs/Day Years [...] [facility] [address] [place] [address] Terrance Garcia MD [address] [place] [address] [place] [address] documented as of this encounter Visit Diagnoses Not on filedocumented in this encounter Care Teams Edge Blacker Relationship Specialty Start Date End Date Keely Wilburn MD [address] [place] [phone] PCP - General Internal Medicine 02/11/20 documented as of this encounter
--- OUTSIDE RECORDS SUMMARY | 2025-10-01 11:13 | XMS_ITS | Encounter Summary ---
Author Organization [facility] Address [address] [place] [address] Phone Care Team Providers Care Agile Coach Name Role Phone Keely Wilburn MD Primary Care Provider + [phone] Encounter Details Date Type Department Care Team (Late Contact Info) Description 09/02/2024 Documentation Only [facility] [address] [place] [address] Jaz Jane [place] [address] [place] [phone] Social History Tobacco Use Types Packs/Day Years [...] [facility] [address] [place] [address] Terrance Garcia MD [address] [facility] [address] [place] [address] documented as of this encounter Visit Diagnoses Not on filedocumented in this encounter Care Teams Agile Coach Relationship Specialty Start Date End Date Keely Wilburn MD [address] [place] [phone] PCP - General Internal Medicine 02/11/20 documented as of this encounter
--- OUTSIDE RECORDS SUMMARY | 2025-10-01 11:13 | XMS_ITS | Encounter Summary ---
Author Organization [employer] Address [address] [facility] 7t [place] [address] Care Team Providers Care Marketing Reps Sports And Entertainment Name Role Phone Keely Wilburn MD Primary Care Provider + Reason for Visit * Reason Onset Date Comments Email paperwork 12/26/2022 Encounter Details Date Type Department Care Team ([facility] st Contact Info) Description 12/26/2022 Telephone [facility] [address] [place], [place] [phone] Keely Wilburn MD 230 [place] [address] Email paperwork Social History Tobacco Use Types [...] 3:13 PM EST Tc from Cathryn with [facility] stating that she spoke with a nurse regarding some paperwork that nurse was having trouble faxing over and Cathryn gave over her but she has not receive anything back, the email is [email or web address] If any information needed please contact Cathryn at [phone] documented in this encounter Plan of Treatment Upcoming Encounters Date Type Department Care Team (Late st Contact Info) Description 10/29/2025 10:30 AM EST Office Visit [facility] [address] [place] [address] Keely Wilburn MD [address] [place] [address] documented as of this encounter Visit Diagnoses Not on filedocumented in this encounter Care Teams Marketing Reps [employer] Entertainment Relationship Specialty Start Date End Date Keely Wilburn MD [address] [place] [address] PCP - General Family Medicine 10/27/19 [facility] TEAM 08/06/24 documented as of this encounter
--- OUTSIDE RECORDS SUMMARY | 2025-10-01 11:13 | XMS_ITS | Clinical Summary ---
Author Organization [facility] [place], Address [address] [place] [address] [place] [address] Phone Care Team Providers Care Comic Book Designer Name Role Phone Keely Wilburn MD Primary Care Provider + [phone] Allergies Active Allergy Reactions Criticality Noted Date [...] NEEDED 0 Active Lancets (ONETOUCH DELICA PLUS [id number]) misc USE SEG N LO INDICADO PAN [...] Visit [facility] [place], [address] [facility] [address] Terrance Garcia MD [address] [facility] [place] [address] Health Maintenance Due Date Last Done Comments Diabetes: Ophthalmology Exam 12/19/2019 Diabetes: Pedal Pulse Checked 12/19/2019 Diabetes: Sensory Foot Exam 12/19/2019 Diabetes: Visual Foot Exam 12/19/2019 Influenza Vaccine (#1) 2025 4, 09/01/2020, 10/27/2019, Additional history exists Diabetes: Hemoglobin A1C 09/09/2025 025, 01/15/2025, 05/16/2024, Additional history exists Hepatitis B Vaccine Aged [...] PM EST) Hemoglobin A1C 6.8(H) (4.0-5.6) % [facility] Comment: MONITORING: In known diabetic patients, hemoglobin A1c targets should be discussed with health care provider. DIAGNOSTIC USE: The [employer] Diabetes Association (ADA) and the World Health [...] Supplement 1 Testing performed or reported by [facility], a Service of [facility], [address] [place] [address] Luis Andino MD, Sampler Tester [facility]# [id number] Blood specimen (specimen) Venous blood / Unknown 09/28/2022 2:01 PM EST 09/28/2022 2:03 PM EST us Terrance Garcia MD LAB BLOOD ORDERABLES Final Re sult [facility] from Last 3 Months or Most Recently Relevant to Health Maintenance [place] [address] [facility] Dual SNP ([id number]) [place] [id number] Care Teams Comic Book Designer Relationship Specialty Start Date End Date Keely Wilburn MD [address] [place] [phone] PCP - General Internal Medicine 02/11/20
--- OUTSIDE RECORDS SUMMARY | 2025-10-01 11:13 | XMS_ITS | Encounter Summary ---
Author Organization [facility] [place], Address [address] [place] [address] Phone Care Team Providers Care Channel Rougher Name Role Phone Keely Wilburn MD Primary Care Provider + [phone] Encounter Details Date Type Department Care Team (Late st Contact Info) Description 09/29/2024 Documentation Only [facility] [place], [address] [place] [address] Juju Avila [address] [place] [phone] Social History Tobacco Use Types Packs/Day Years [...] on file documented as of this encounter Functional Status * BP Answer Date of Assessment Author 153/76 09/29/2024 1:37 PM Terrance Cordova MD * Pulse Answer Date of Assessment Author 65 09/29/2024 1:37 PM Terrance Cordova MD * BP Answer Date of Assessment Author 153/76 09/29/2024 1:37 PM Terrance Cordova MD documented as of this encounter Plan of Treatment Upcoming Encounters Date Type Department Care Team (Late st Contact Info) Description 03/22/2026 1:45 PM EDT Office Visit [facility] [place], [address] [facility] [place] [address] Terrance Garcia MD [address] [facility] [place] [phone] documented as of this encounter Visit Diagnoses Not on filedocumented in this encounter Care Teams Channel Rougher Relationship Specialty Start Date End Date Keely Wilburn MD [address] [place] [address] PCP - General Internal Medicine 02/11/20 documented as of this encounter
--- OUTSIDE RECORDS SUMMARY | 2025-10-01 11:13 | XMS_ITS | Encounter Summary ---
Author Organization [employer] Address [address] [facility] 7t [place] [address] Care Team Providers Care Child Welfare Assistant Name Role Phone Keely Wilburn MD Primary Care Provider + Encounter Details Date Type Department Care Team (Late Contact Info) Description 01/17/2023 Abstract [facility] [address] [place] [address] Keely Wilburn MD [address] [place], [place] [phone] Social History Tobacco Use Types Packs/Day Years [...] Description 10/29/2025 10:30 AM EST Office Visit [facility] [address] [place], [place] [phone] Keely Wilburn MD 230 [place] [address] documented as of this encounter Visit Diagnoses Not on filedocumented in this encounter Care Teams Child Welfare Assistant Relationship Specialty Start Date End Date Keely Wilburn MD 230 [place] [address] PCP - General Family Medicine 10/27/19 [facility] 08/06/24 documented as of this encounter
--- OUTSIDE RECORDS SUMMARY | 2025-10-01 11:14 | XMS_ITS | Encounter Summary ---
Author Organization [facility] Address [address] [place] [address] Phone Care Team Providers Care Re Examiner Name Role Phone Keely Wilburn MD Primary Care Provider + [phone] Encounter Details Date Type Department Care Team (Late Contact Info) Description 03/18/2024 Documentation Only [facility] [address] [place] [address] Juju Avila [address] [place] [phone] Social History Tobacco Use Types Packs/Day Years [...] Visit [facility] [address] [place] [address] Terrance Garcia MD [address] [place] [address] [place] [address] documented as of this encounter Visit Diagnoses Not on filedocumented in this encounter Care Teams Re Examiner Relationship Specialty Start Date End Date Keely Wilburn MD [address] [place] [address] PCP - General Internal Medicine 02/11/20 documented as of this encounter
--- OUTSIDE RECORDS SUMMARY | 2025-10-01 11:14 | XMS_ITS | Encounter Summary ---
Author Organization [employer] Address 75 [facility] 7t [place] [address] Care Team Providers Care Information Resource Consultant Name Role Phone Keely Wilburn MD Primary Care Provider + Reason for Visit * Reason Onset Date Comments Med Refill 05/07/2025 Encounter Details Date Type Department Care Team ([facility] st Contact Info) Description 05/07/2025 Telephone [facility]INE 230 [place], [place] [phone] Keely Wilburn MD 230 [place], [place] [phone] Med Refill Social History Tobacco Use Types [...] encounter Miscellaneous Notes * Telephone Encounter - aKci Kasper LPN - 05/07/2025 12:43 PM EDT Medication not prescribed by PCP. * Telephone Encounter - Sudheer Mejia - 05/07/2025 12:38 PM EDT TC from pt requesting medication refill. Medications needing refill: colchicine 0.6 MG tablet To be sent to: [facility]/pharmacy #[id number] [place] [address] documented in this encounter Plan of Treatment Upcoming Encounters Date Type Department Care Team (Late st Contact Info) Description 10/29/2025 10:30 AM EST Office Visit [facility]INE 230 [place] [address] Keely Wilburn MD 230 [place] [address] documented as of this encounter Visit Diagnoses Not on filedocumented in this encounter Care Teams Information Resource Consultant Relationship Specialty Start Date End Date Keely Wilburn MD 230 [place] [address] PCP - General Family Medicine 10/27/19 [employer] 08/06/24 documented as of this encounter
--- OUTSIDE RECORDS SUMMARY | 2025-10-01 11:14 | XMS_ITS | Encounter Summary ---
Author Organization [facility] Address [address] [place] [address] Phone Care Team Providers Care Kiln Puller Name Role Phone Keely Wilburn MD Primary Care Provider + [phone] Encounter Details Date Type Department Care Team (Late Contact Info) Description 03/18/2024 Documentation Only [facility] [address] [place] [address] Juju Avila [address] [place] [phone] Social History Tobacco Use Types Packs/Day Years [...] Visit [facility] [address] [place] [address] Terrance Garcia MD [address] [place] [address] [place] [address] documented as of this encounter Visit Diagnoses Not on filedocumented in this encounter Care Teams Kiln Puller Relationship Specialty Start Date End Date Keely Wilburn MD [address] [place] [address] PCP - General Internal Medicine 02/11/20 documented as of this encounter
--- OUTSIDE RECORDS SUMMARY | 2025-10-01 11:14 | XMS_ITS | Clinical Summary ---
Author Organization [employer] Address [address] [facility] 7t [place] [address] Care Team Providers Care Housekeeping Supervisor Name Role Phone Keely Wilburn MD [...] DAY NEEDED (VIAL) 60 capsule 11 Active benazepril (Lotensin) 20 MG tabletIndicatio ns:Primary hypertension TAKE 1 TABLET BY MOUTH TWICE A DAY 60 tablet 11 Active allopurinol (Zyloprim) 100 MG tablet [...] Continuous Glucose Sensor (FreeStyle Kelly 2 Sensor) mis Use as directed Active ketoconazole (NIZOral) 2 [...] tablet by mouth Once per day. Active Blood Pressure Monitoring (Blood Pressure Cuff) mis Use daily as prescribed 1 each Active amLODIPine-mark zepril (Lotrel) 5-40 MG capsule Take 1 capsule by mouth Once per day. 30 capsule 11 2025 Active Dulaglutide (Trulicity) 1.5 MG/0.5ML solution auto-injectorIn dications:Type 2 diabetes mellitus with hyperglycemia, with long-term current use of insulin ([facility]) Inject 1.5 mg under the skin 1 [...] 025 Active cholecalciferol (Vitamin D-3) 1.25 MG (86886 UT) capsule TAKE 1 CAPSULE BY MOUTH ONCE WEEKLY 12 capsule 1 025 Active Lantus SoloStar 100 UNIT/ML penIndications: Type 2 diabetes mellitus with other specified complication, unspecified whether detention insulin use ([facility]) INJECT 18 UNITS SUBCUTANEOUSLY ONCE DAILY 45 mL 1 025 Active meclizine (Antivert) 25 MG tabletIndicatio ns:Benign paroxysmal positional vertigo, unspecified laterality Take 1 tablet (25 mg) by mouth if needed in the morning, at noon, and at bedtime for dizziness. TAKE ONE TABLET BY MOUTH EVERY DAY NEEDED FOR DIZZINESS (VIAL) 30 tablet 1 025 Active Lancets (OneTouch Delica Plus [id number]) miscIndications :Type 2 diabetes mellitus with diabetic nephropathy, with long-term current use of insulin ([facility]) USE TO TEST BLOOD SUGAR THREE TIMES A DAY 100 each 11 025 Active meclizine (Antivert) 25 MG tabletIndicatio ns:Benign paroxysmal positional vertigo, unspecified laterality TAKE ONE TABLET BY MOUTH EVERY DAY NEEDED FOR DIZZINESS (VIAL) 30 tablet 024 2024 Discontinued(R eorder (will not trigger notification to Pharmacy)) Lancets (OneTouch Delica Plus [id number]) miscIndications :Type 2 diabetes mellitus with diabetic nephropathy, with long-term current use of insulin ([facility]) USE TO TEST BLOOD SUGAR THREE TIMES A DAY 100 each 11 024 2024 Discontinued(R eorder (will not trigger notification to Pharmacy)) Active [...] daughter who agreed to bring patient to [facility] ER for emergent US to rule out [...] scan abdomen and pelvis on 12/02/2024 at [facility] Assessment & Plan (06/09/2025 10:46 AM EDT): [...] scan abdomen and pelvis on 12/02/2024 at [facility] Assessment & Plan (01/15/2025 3:49 PM EST): See pancreatic lesions above, will try to expedite MRI of the abdomen Venous ulcer of left leg ([facility]/H[facility]) 07/31/2024 Assessment & Plan (07/31/2024 2:34 PM EDT): Ulcer dressing done by RN, see above. 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 ([facility]) 03/26/2017 Microalbuminuria 08/13/2012 Obesity 08/13/2012 Asthma 06/18/2012 [...] + Lantus 18 units and follow-up with hospital security officer, I told him to address change of GLP to hospital security officer to the 1 that has a better [...] requested refill of Trulicity be sent to [facility] as she had difficulty picking it up at local [facility] due to supply issues Assessment & [...] Plan (05/24/2023 11:18 AM EDT): r/o hypoglycemia DIRECTOR INB[employer] SALES will monitor symptoms of dizziness and pt [...] Encounters Date Type Department Care Team Description 09/21/2025 Refill [facility] MEDICINE [address] [place] [address] Keely Wilburn MD Benign paroxysmal positional vertigo, unspecified laterality; Type 2 diabetes mellitus with diabetic nephropathy, with long-term current use of insulin ([facility]) 08/25/2025 Orders Only GENERIC EXTERNAL DATA DEPARTMENT Provider, Generic External Data 08/20/2025 Telephone [facility] MEDICINE [address] [place] [address] Keely Wilburn MD October08/07/2025 Telephone [facility] MEDICINE [address] [place] [address] Keely Wilburn MD verbal order needed 08/05/2025 Refill [facility] MEDICINE [address] [place] [address] Kaci Le DO Type 2 diabetes mellitus with other specified complication, unspecified whether director of food and beverage services insulin use ([facility]) 08/02/2025 Refill [facility] [address] [place] [address] Keely Wilburn MD 07/28/2025 Orders Only GENERIC EXTERNAL DATA DEPARTMENT Provider, Generic External Data 07/22/2025 Refill [facility] [address] [place] [address] Keely Wilburn MD 07/19/2025 Refill [facility] [address] [place] [address] Keely Wilburn MD 07/10/2025 Refill [facility] MEDICINE [address] [place] [address] Keely Wilburn MD Moderate persistent asthma, unspecified whether complicated; Viral upper respiratory tract infection from Last 3 Months Immunizations Immunization Administration [...] 10/29/2025 10:30 AM EST Office Visit [facility] MEDICINE [address] [place] [address] Keely Wilburn MD 230 [place] [address] Health Maintenance Due Date Last Done Comments [...] WHOLE BLOOD Routine 07/28/2025 8:50 AM EDT POCT GLYCATED HEMOGLOBIN, TOTAL Routine [...] 9:00 AM EDT) Only the most recent of2 resultswithin the time period is included. Glucose, Whole Blood 172(H) 60 - 115 mg/dL [facility] Comment:METER #: [id number] Testing performed in the Endocrinology Department [address], Lauri IZQUIERDO. 08/25/2025 9:00 AM EDT 08/25/2025 9:04 AM EDT us Generic External Data Provider LAB BLOOD ORDERAB LES Final Result [facility] [address] [place] [phone] [phone] * (ABNORMAL) POCT HGB A1C (06/09/2025 [...] AM EST Narrative 10/16/2024 9:41 AM EST [facility] [address] [place] [address] Mammography Report Signed Patient: Adrianne Landeros MR#: [id number] : 1950 Acct:[id number] Age/Sex: 74 / F ADM Date: 10/07/24 Loc: HO.MAMMO Attending Dr: Keely Wilburn MD Ordering Physician: Keely Wilburn MD Results: 1Ne gative Date of Service: 10/07/24 Follow Up: 1 Year From Orig inal Mammogram Procedure(s): MM tomosynthesis screening BI Accession Number(s): [id number] cc: Keely Wiblurn MD EXAMINATION: MM SCREENING DIGITAL BREAST TOMOSYNTHESIS, [...] Goldstein DO in OV> 10/16/2438 DD/ TD/TT: 10/07/24904 Safety Sitter: Procedure Note Donotuseinterpreter, Image - 10/16/2024 [facility] [address] [place], [place] [address] Mammography Report Signed Patient: Adrianne LanderosMR#: [id number] : 8Acct:[id number] Age/Sex: 74 / FADM Date: 10/07/24 Loc: HO.MAMMO Attending Dr: Keely Wilburn MD Ordering Physician: Keely Wilburn MDResults: 1Ne gative Date of Service: 10/07/24Follow Up: 1 Year From Orig inal Mammogram Procedure(s): MM tomosynthesis screening BI Accession Number(s): [id number] cc: Keely iWlburn MD EXAMINATION: MM SCREENING DIGITAL BREAST TOMOSYNTHESIS, [...] DO in OV> 10/16/24937 DD/ TD/TT: 10/07/24904 Safety Sitter: Keely Wilburn MD IMG BI PROCEDURES Edited Result - Final * (ABNORMAL) Lipid Panel with Reflex to Direct LDL (08/04/2024 9:55 AM EDT) Triglycerides 174(H) <150 mg/dL [facility] Comment:Desirable Triglyceri de: less than 150 mg/dLBorderline High Triglyceride 150-199 mg/dLHigh Triglyceride: 200-499 mg/dLVery High Triglyceride: greater than or equal to 5OO mg/dL Cholesterol 145 <200 mg/dL [facility] Comment:Desirable Cholestero l: less than 200 mg/dLBorderline High Cholesterol: 200-239 mg/dLHigh Cholesterol: greater than 239 mg/dL LDL Cholesterol Calculated 68 <100 mg/dL [facility] Comment:Desirable LDL: less than 100 mg/dLNear Optimal/Above Optimal LDL: 110- 129 mg/dLBorderline High LDL: 130-159 mg/dLHigh LDL: 160-189 mg/dLVery High LDL: greater than or equal to 190 mg/dL HDL Cholesterol 43 >40 mg/dL [facility] Comment:Desirable HDL: great er than 40 mg/dL Note: This HDL assay may give artificially low results in patients with liver disease. Blood 08/04/2024 9:55 AM EDT 08/04/2024 2:27 PM EDT us Keely Wilburn MD LAB BLOOD ORDERABLES Fin al Result Performing Organization Address [facility] Co de Phone Number [facility] [address] [place] [phone] * Hepatitis C Antibody with Reflex to HCV, RNA, Quantitative, Real-Time PCR (05/16/2024 11:17 AM EDT) Hepatitis C Antibody Nonreactive Nonreactive [facility] Comment:Antibodies to HCV no t detected; does not exclude early acuteHCV infection. Blood Venous blood specimen / Unknown 05/16/2024 11:17 AM EDT 05/16/2024 1:09 PM EDT us Anusha Real MD LAB BLOOD ORDERABLES Final Res ult Performing Organization Address [facility] Co de Phone Number [facility] [address] [place] [phone] * (ABNORMAL) Hm Colonoscopy (02/06/2024) Colonoscopy Abnormal( A) Normal [facility] Comment:Tubular adenoma; neg ative for high grade dysplasia and carcinoma us Keely Wilburn MD HEALTH MAINTENANCE Final Result Performing Organization Address [facility] Co de Phone Number [facility] [address] [place] [phone] * OCCULT BLOOD STOOL X3 (11/23/2019 [...] Wilburn MD HISTORICAL/NON ORDERABLE LABS Final Result [facility] [address] from Last 3 Months or Most Recently Relevant to Health Maintenance Insurance [facility] [employer] (O D-SNP) [place] [id number] Care Teams Housekeeping Supervisor Relationship Specialty Start Date End Date Keely Wilburn MD [address] [place] [phone] PCP - General Family Medicine 10/27/19 [employer] 08/06/24
--- OUTSIDE RECORDS SUMMARY | 2025-10-01 11:14 | XMS_ITS | Encounter Summary ---
Author Organization [facility] Address [address] [place] [address] Phone Care Team Providers Care Senior Product Marketing Manager Name Role Phone Keely Wilburn MD Primary Care Provider + [phone] Encounter Details Date Type Department Care Team (Late st Contact Info) Description 10/11/2021 Documentation Only [facility] [address] [place] [address] Terrance Garcia MD [address] [place] [address] [place] [address] Social History Tobacco Use Types [...] Visit [facility] [address] [place] [address] Terrance Garcia MD [address] [facility] [place] [address] documented as of this encounter Visit Diagnoses Not on filedocumented in this encounter Care Teams Senior Product Marketing Manager Relationship Specialty Start Date End Date Keely Wilburn MD [address] [place] [address] PCP - General Internal Medicine 02/11/20 documented as of this encounter
--- OUTSIDE RECORDS SUMMARY | 2025-10-01 11:14 | XMS_ITS | Encounter Summary ---
Author Organization [facility] Address [address] [place] [address] Phone Care Team Providers Care Laborer Chemical Processing Name Role Phone Keely Wilburn MD Primary Care Provider + [phone] Encounter Details Date Type Department Care Team (Late Contact Info) Description 03/18/2024 Documentation Only [facility] [address] [place] [address] Juju Avila [address] [place] [phone] Social History Tobacco Use Types Packs/Day Years [...] Visit [facility] [address] [place] [address] Terrance Garcia MD [address] [place] [address] [place] [address] documented as of this encounter Visit Diagnoses Not on filedocumented in this encounter Care Teams Laborer Chemical Processing Relationship Specialty Start Date End Date Keely Wilburn MD [address] [place] [address] PCP - General Internal Medicine 02/11/20 documented as of this encounter
--- OUTSIDE RECORDS SUMMARY | 2025-10-01 11:14 | XMS_ITS | Encounter Summary ---
Author Organization [facility] Address [address] [place] [address] Phone Care Team Providers Care Mainspring Strip Inspector Name Role Phone Keely Wilburn MD Primary Care Provider + [phone] Encounter Details Date Type Department Care Team (Late Contact Info) Description 03/18/2024 Documentation Only [facility] [address] [place] [address] Juju Avila [address] [place] [phone] Social History Tobacco Use Types Packs/Day Years [...] [facility] [address] [place] [address] Terrance Garcia MD [address] [place] [address] [place] [address] documented as of this encounter Visit Diagnoses Not on filedocumented in this encounter Care Teams Mainspring Strip Inspector Relationship Specialty Start Date End Date Keely Wilburn MD [address] [place] [address] PCP - General Internal Medicine 02/11/20 documented as of this encounter
--- OUTSIDE RECORDS SUMMARY | 2025-10-01 11:14 | XMS_ITS | Encounter Summary ---
Author Organization [facility] Address [address] [place] [address] Phone Care Team Providers Care Doughmaker Name Role Phone Keely Wilburn MD Primary Care Provider + [phone] Encounter Details Date Type Department Care Team (Late Contact Info) Description 03/18/2024 Documentation Only [facility] [address] [place] [address] Juju Avila [address] [place] [phone] Social History Tobacco Use Types Packs/Day Years [...] Visit [facility] [address] [place] [address] Terrance Garcia MD [address] [place] [address] [place] [address] documented as of this encounter Visit Diagnoses Not on filedocumented in this encounter Care Teams Doughmaker Relationship Specialty Start Date End Date Keely Wilburn MD [address] [place] [address] PCP - General Internal Medicine 02/11/20 documented as of this encounter
--- OUTSIDE RECORDS SUMMARY | 2025-10-01 11:14 | XMS_ITS | Encounter Summary ---
Author Organization [facility] Address [address] [place] [address] Phone Care Team Providers Care Billiard Player Name Role Phone Keely Wilburn MD Primary Care Provider + [phone] Encounter Details Date Type Department Care Team (Late Contact Info) Description 03/18/2024 Documentation Only [facility] [address] [place] [address] Juju Avila [address] [place] [phone] Social History Tobacco Use Types Packs/Day Years [...] [facility] [address] [place] [address] Terrance Garcia MD [address] [place] [address] [place] [address] documented as of this encounter Visit Diagnoses Not on filedocumented in this encounter Care Teams Billiard Player Relationship Specialty Start Date End Date Keely Wilburn MD [address] [place] [address] PCP - General Internal Medicine 02/11/20 documented as of this encounter
--- OUTSIDE RECORDS SUMMARY | 2025-10-01 11:14 | XMS_ITS | Encounter Summary ---
Author Organization [facility] Address [address] [place] [address] Phone Care Team Providers Care Assisted Living Executive Director Name Role Phone Keely Wilburn MD Primary Care Provider + [phone] Encounter Details Date Type Department Care Team (Late Contact Info) Description 03/18/2024 Documentation Only [facility] [address] [place] [address] Juju Avila [address] [place] [phone] Social History Tobacco Use Types Packs/Day Years [...] Visit [facility] [address] [place] [address] Terrance Garcia MD [address] [place] [address] [place] [address] documented as of this encounter Visit Diagnoses Not on filedocumented in this encounter Care Teams Assisted Living Executive Director Relationship Specialty Start Date End Date Keely Wilburn MD [address] [place] [phone] PCP - General Internal Medicine 02/11/20 documented as of this encounter
--- OUTSIDE RECORDS SUMMARY | 2025-10-01 11:15 | XMS_ITS | Encounter Summary ---
Author Organization [employer] Address [address] [facility] 7t [place] [address] Care Team Providers Care Loft Worker Apprentice Name Role Phone Keely Wilburn MD Primary Care Provider + Reason for Visit * Reason Onset Date Comments Hospital Follow-up 12/08/2024 Encounter Details Date Type Department Care Team ([facility] st Contact Info) Description 12/08/2024 Telephone [facility] MEDICINE 230 [place], [place] [phone] Keely Wilburn MD 230 [place], [place] [phone] Hospital Follow-up Social History Tobacco Use Types [...] pt daughter requesting a HDF appt. Hospital: [place], [place] Date of admission: 12/02 Discharge date: 12/05 Diagnosed: Diarrhea, Vomiting, Abdominal Pain, Chest Pain, Dizziness *Send message to [facility] Care Coordinators documented in this encounter Plan of Treatment Upcoming Encounters Date Type Department Care Team (Late st Contact Info) Description 10/29/2025 10:30 AM EST Office Visit [facility] MEDICINE [address] [place] [address] Keely Wilburn MD 230 [place] [address] documented as of this encounter Visit Diagnoses Not on filedocumented in this encounter Care Teams Loft Worker Apprentice Relationship Specialty Start Date End Date Keely Wilburn MD [address] [place] [address] PCP - General Family Medicine 10/27/19 [employer] 08/06/24 documented as of this encounter
--- OUTSIDE RECORDS SUMMARY | 2025-10-01 11:15 | XMS_ITS | Encounter Summary ---
Author Organization [employer] Address [address] [facility] 7t [place] [address] Care Team Providers Care Government Relations Manager Name Role Phone Keely Wilburn MD Primary Care Provider + Reason for Visit * Reason Comments Med Refill Encounter Details Date Type Department Care Team (Late st Contact Info) Description 01/18/2024 Refill [facility] MEDICINE 230 [place], [place] [phone] Keely Wilburn MD 230 [place], [place] [phone] Other postherpetic nervous system involvement Social History [...] Description 10/29/2025 10:30 AM EST Office Visit [facility]INE [address] [place] [phone] Keely Wilburn MD [address] [place] [address] documented as of this encounter Visit Diagnoses Diagnosis Other postherpetic nervous system involvement documented in this encounter Care Teams Government Relations Manager Relationship Specialty Start Date End Date Keely Wilburn MD [address] [place] [phone] PCP - General Family Medicine 10/27/19 [employer] 08/06/24 documented as of this encounter
--- OUTSIDE RECORDS SUMMARY | 2025-10-01 11:15 | XMS_ITS | Encounter Summary ---
Author Organization [employer] Address [address] [facility] 7t [place] [address] Care Team Providers Care Drawing In Machine Tender Helper Name Role Phone Keely Wilburn MD Primary Care Provider + Reason for Visit * Reason Comments Med Change Request Encounter Details Date Type Department Care Team (Late st Contact Info) Description 11/06/2023 Refill [facility] MEDICINE 230 [place], [place] [phone] Keely Wilburn MD 230 [place], [place] [phone] Osteopenia of neck of femur, unspecified laterality [...] Description 10/29/2025 10:30 AM EST Office Visit [facility] [address] [place] [address] Keely Wilburn MD [address] [place] [address] documented as of this encounter Visit Diagnoses Diagnosis Osteopenia of neck of femur, unspecified laterality documented in this encounter Care Teams Drawing In Machine Tender Helper Relationship Specialty Start Date End Date Keely Wilburn MD [address] [place] [address] PCP - General Family Medicine 10/27/19 [email or web address] 08/06/24 documented as of this encounter
--- OUTSIDE RECORDS SUMMARY | 2025-10-01 11:15 | XMS_ITS | Encounter Summary ---
Author Organization [employer] Address [address] [facility] 7t [place] [address] Care Team Providers Care Pediatric Surgeon Name Role Phone Keely Wilburn MD Primary Care Provider + Encounter Details Date Type Department Care Team (Late Contact Info) Description 07/10/2023 Telephone [facility] [address] [place] [address] [phone] Katty Gutierrez LPN Social History Tobacco Use [...] AM EST Office Visit [facility] [address] [place] [address] [phone] Keely Wilburn MD 230 [place] [address] documented as of this encounter Visit Diagnoses Not on filedocumented in this encounter Care Teams Pediatric Surgeon Relationship Specialty Start Date End Date Keely Wilburn MD [address] [place] [address] PCP - General Family Medicine 10/27/19 [employer] 08/06/24 documented as of this encounter
--- OUTSIDE RECORDS SUMMARY | 2025-10-01 11:15 | XMS_ITS | Encounter Summary ---
Author Organization [employer] Address [address] [facility] 7t [place] [address] Care Team Providers Care Plaster Model And Mold Maker Name Role Phone Keely Wilburn MD Primary Care Provider + Reason for Visit * Reason Comments Med Refill Encounter Details Date Type Department Care Team (Late st Contact Info) Description 01/25/2025 Refill [facility] MEDICINE 230 [place], [place] [phone] Keely Wilburn MD 230 [place], [place] [phone] Social History Tobacco Use Types Packs/Day Years [...] Description 10/29/2025 10:30 AM EST Office Visit [facility] [address] [place] [phone] Keely Wilburn MD [address] [place] [address] documented as of this encounter Visit Diagnoses Not on filedocumented in this encounter Care Teams Plaster Model And Mold Maker Relationship Specialty Start Date End Date Keely Wilburn MD [address] [place] [phone] PCP - General Family Medicine 10/27/19 [employer] 08/06/24 documented as of this encounter
--- OUTSIDE RECORDS SUMMARY | 2025-10-01 11:15 | XMS_ITS | Encounter Summary ---
Author Organization [employer] Address [address] [facility] 7t [place] [address] Care Team Providers Care Retail Field Representative Name Role Phone Keely Wilburn MD Primary Care Provider + Reason for Visit * Reason Onset Date Comments Referral 12/08/2024 order 12/08/2024 Encounter Details Date Type Department Care Team (Late st Contact Info) Description 12/08/2024 Telephone [facility] MEDICINE 230 [place], [place] [phone] Keely Wilburn MD 230 [place], [place] [phone] Referral; order Social History Tobacco Use Types [...] more info provided. Any questions contact Ashlyn Slovenian documented in this encounter Plan of Treatment Upcoming Encounters Date Type Department Care Team ([facility] st Contact Info) Description 10/29/2025 10:30 AM EST Office Visit [facility] MEDICINE 230 [place] [address] Keely Wilburn MD 230 [place] [address] documented as of this encounter Visit Diagnoses Not on filedocumented in this encounter Care Teams Retail Field Representative Relationship Specialty Start Date End Date Keely Wilburn MD 230 [place] [address] PCP - General Family Medicine 10/27/19 [employer] 08/06/24 documented as of this encounter
--- OUTSIDE RECORDS SUMMARY | 2025-10-01 11:16 | XMS_ITS | Encounter Summary ---
Author Organization [employer] Address [address] [facility] 7t [place] [address] Care Team Providers Care Rn Ostomy Name Role Phone Keely Wilburn MD Primary Care Provider + Reason for Visit * Reason Comments Med Refill Encounter Details Date Type Department Care Team (Late st Contact Info) Description 12/09/2023 Refill [facility] MEDICINE 230 [place], [place] [phone] Keely Wilburn MD 230 [place], [place] [phone] Osteopenia of neck of femur, unspecified laterality [...] Description 10/29/2025 10:30 AM EST Office Visit [facility] MEDICINE [address] [place] [address] Keely Wilburn MD [address] [place] [address] documented as of this encounter Visit Diagnoses Diagnosis Osteopenia of neck of femur, unspecified laterality documented in this encounter Care Teams Rn Ostomy Relationship Specialty Start Date End Date Keely Wilburn MD [address] [place] [address] PCP - General Family Medicine 10/27/19 [employer] 08/06/24 documented as of this encounter
--- OUTSIDE RECORDS SUMMARY | 2025-10-01 11:16 | XMS_ITS | Encounter Summary ---
Author Organization [employer] Address 75 [facility] 7t [place] [address] Care Team Providers Care Fashion Director Party Plan Sales Name Role Phone Keely Wilburn MD Primary Care Provider + Encounter Details Date Type Department Care Team (Late st Contact Info) Description 05/07/2024 Telephone [facility] MEDICINE 230 [place], [place] [phone] Keely Wilburn MD 230 [place], [place] [phone] Social History Tobacco Use Types Packs/Day Years [...] contact # if there is any questions [phone] documented in this encounter Plan of Treatment Upcoming Encounters Date Type Department Care Team (Late st Contact Info) Description 10/29/2025 10:30 AM EST Office Visit [facility] MEDICINE [address] [place] [phone] Keely Wilburn MD [address] [place] [address] documented as of this encounter Visit Diagnoses Not on filedocumented in this encounter Care Teams Fashion Director Party Plan Sales Relationship Specialty Start Date End Date Keely Wilburn MD [address] [place] [address] PCP - General Family Medicine 10/27/19 [email or web address] 08/06/24 documented as of this encounter
--- OUTSIDE RECORDS SUMMARY | 2025-10-01 11:16 | XMS_ITS | Encounter Summary ---
Author Organization [employer] Address 75 [facility] 7t [place] [address] Care Team Providers Care Printed Circuit Board Preassembler Name Role Phone Keely Wilburn MD Primary Care Provider + Reason for Visit * Reason Comments Med Change Request Encounter Details Date Type Department Care Team ([facility] st Contact Info) Description 11/09/2023 Refill [facility] [address] [place], [place] [phone] Kaci Le, 230 [place] [address] Type 2 diabetes mellitus with other specified complication, unspecified whether longitudinal float operator insulin use (CMS/[facility]) Social History Tobacco Use Types [...] 10/29/2025 10:30 AM EST Office Visit [facility] MEDICINE [address] [place] [address] Keely Wilburn MD [address] [place] [address] documented as of this encounter Visit Diagnoses Diagnosis Type 2 diabetes mellitus with other specified complication, unspecified whether group home insulin use (HCC) documented in this encounter Care Teams Printed Circuit Board Preassembler Relationship Specialty Start Date End Date Keely Wilburn MD [address] [place] [address] [phone] PCP - General Family Medicine 10/27/19 [employer] 08/06/24 documented as of this encounter
--- OUTSIDE RECORDS SUMMARY | 2025-10-01 11:16 | XMS_ITS ---
Author Name Sherry Lucio NP Address [address] [place] [address] Phone [phone] [facility] Care Team Providers Care Cork Mixer Name Role Phone Sherry Lucio Unavailable [phone] Reason for Referral Not Available Allergies, adverse [...] No Data Available BD AUTOSHIELD DUO NDL [id number] USE WITH INSULIN TWICE DAILY 2022-09-05 No Data Meseret ilable Benazepril 20 mg Tab TAKE 1 TABLET (20 M G) BY MOUTH IN THE MORNING. DC BENAZEPRIL/HCTZ 2022-11-16 No Data Available Lantus SoloStar 100 UNIT/ML Solution Pen-injector INJECT 18 UNITS SUBCUTANEOUSLY ONCE DAILY 2023-05-31 No Data Available amLODIPine Besylate 10 mg Tab TAKE 1/2 TABLET BY MOUTH DAILY 2022-08-24 No Data Available Zdtzijxaie-NHYJ-Fnpvttpc 50/325/40 mg Tab TAKE 1 TABLET BY [...] No Data Available BD AUTOSHIELD DUO NDL [id number] USE WITH INSULIN TWICE DAILY 2023-12-25 No [...] and one episode of vomiting this am. [facility] tested member this am and she [...] health RN. Continue to push pedialite and coal picker zofran. f/u sched 01/21/24-call CB 04/06 [...] joint pain increased [facility]. Follow-up with [facility] as needed for any acute or disease education needs that may arise 04/06.what should be done when the member calls: see each individual diagnosis for contingency plan Encounters Encounters Type Facility Date of Service Diagnosis/Co mplaint New patient,40-59min; chronic exacerbation, 2 stable chronic or 1 acute illness add add modifier 95 for video (do not use for phone, instead use 82970-32) [facility]/2023 Severe persistent asthma, uncomplicatedBenign paroxysmal vertigo, [...] (do not use for phone, instead use 07044-06) [facility]/20[place] New patient,40-59min; chronic exacerbation, 2 stable chronic or 1 acute illness add add modifier 95 for video (do not use for phone, instead use 38365-85) [facility] 12/04/2023 New patient,40-59min; chronic exacerbation, 2 stable chronic or 1 acute illness add add modifier 95 for video (do not use for phone, instead use 33256-27) [facility] 12/04/2023 New patient,40-59min; chronic exacerbation, 2 stable chronic or 1 acute illness add add modifier 95 for video (do not use for phone, instead use 51883-20) [facility] 12/04/2023 New patient,40-59min; chronic exacerbation, 2 stable chronic or 1 acute illness add add modifier 95 for video (do not use for phone, instead use 00590-12) [facility] 12/04/2023 New patient,40-59min; chronic exacerbation, 2 stable chronic or 1 acute illness add add modifier 95 for video (do not use for phone, instead use 16510-03) [facility] [place] 12/04/2023 New patient,40-59min; chronic exacerbation, 2 stable chronic or 1 acute illness add add modifier 95 for video (do not use for phone, instead use 93436-82) [facility] 12/04/2023 New patient,40-59min; chronic exacerbation, 2 stable chronic or 1 acute illness add add modifier 95 for video (do not use for phone, instead use 07532-37) [facility] [place] 12/04/2023 New patient,40-59min; chronic exacerbation, 2 stable chronic or 1 acute illness add add modifier 95 for video (do not use for phone, instead use 07387-03) [facility] 12/04/2023 No Data Available [facility] [place] 01/15/2024 Severe persistent asthma, uncomplicatedUnspecified chronic bronchitis No Data Available [facility], ([place]) 01/15/2024 No Data Available [facility] 01/17/2024 Severe persistent asthma, uncomplicatedUnspecified chronic bronchitisBenign [...] and other health care No Data Available [facility] [place] 01/17/2024 No Data Available [facility] 01/17/2024 No Data Available [facility] 01/17/2024 No Data Available [facility] [place] 01/18/2024 Severe persistent asthma, uncomplicatedUnspecified chronic bronchitisUnspecified [...] and other health care No Data Available [facility] [place] 01/18/2024 No Data Available [facility] [place] 01/18/2024 No Data Available [facility] [place] 01/18/2024 No Data Available [facility] [place] 01/21/2024 Severe persistent asthma, uncomplicatedUnspecified chronic bronchitisUnspecified [...] and other health care No Data Available [facility] 01/21/2024 Vital Signs Date of Collection Vitals [...] tive Time Current Smoking Status Never smoker 2025-09- 0 Sex Female History of Procedures Procedures Service Procedure code Service date Servicing provider Phone# New patient,40-59min; chronic exacerbation, 2 stable chronic or 1 acute illness add add modifier 95 for video (do not use for phone, instead use 54165-45) 20614 2023-12-04 No Data Available No Data Availa [...] No Data Avail able No Data Available [id number] 2024-01-15 No Data Available No Data Available [...] No Data Availa ble No Data Available [id number] 2024-01-18 No Data Available No Data Available SBP 130-139 (3075F) 3075F 2024-01-18 No Data Availabl e No Data Available DBP <80 (3078F) 3078F 2024-01-18 No Data Available No Data Available Functional Status Assessed (1170F) 1170F 2024-01-18 No Data Available No Data Avail able No Data Available [id number] 2024-01-21 No Data Available No Data Available [...] and one episode of vomiting this am. [facility] tested member this am and she [...] and one episode of vomiting this am. [facility] tested member this am and she [...] health RN. Continue to push pedialite and coal picker zofran. f/u sched 01/21/24-call CB 04/06 [...] and one episode of vomiting this am. [facility] tested member this am and she [...] health RN. Continue to push pedialite and coal picker zofran. f/u sched 01/21/24-call CB 04/06 [...]
--- OUTSIDE RECORDS SUMMARY | 2025-10-01 11:16 | XMS_ITS | Encounter Summary ---
Author Organization [employer] Address [address] [facility] 7t [place] [address] Care Team Providers Care Gluing Machine Offbearer Name Role Phone Keely Wilburn MD Primary Care Provider + Encounter Details Date Type Department Care Team (Late st Contact Info) Description 11/08/2023 Abstract [facility] MEDICINE [address] [place], [place] [phone] Keely Wilburn MD 230 [place], [place] [phone] Social History Tobacco Use Types Packs/Day Years [...] Description 10/29/2025 10:30 AM EST Office Visit [facility] MEDICINE [address] [place] [address] Keely Wilburn MD [address] [place] [address] documented as of this encounter Visit Diagnoses Not on filedocumented in this encounter Care Teams Gluing Machine Offbearer Relationship Specialty Start Date End Date Keely Wilburn MD [address] [place] [phone] PCP - General Family Medicine 10/27/19 [employer] 08/06/24 documented as of this encounter
--- OUTSIDE RECORDS SUMMARY | 2025-10-01 11:17 | XMS_ITS | Encounter Summary ---
Author Organization [employer] Address 75 [facility] 7t [place] [address] Care Team Providers Care Fibreglass Gun Hand Name Role Phone Keely Wilburn MD Primary Care Provider + Reason for Visit * Reason Comments Med Refill Encounter Details Date Type Department Care Team (Late st Contact Info) Description 07/08/2024 Refill [facility] MEDICINE 230 [place], [place] [phone] Keely Wilburn MD 230 [place], [place] [phone] Type 2 diabetes mellitus with hyperglycemia, with long-term current use of insulin ([facility]); Slow transit constipation Social History Tobacco Use [...] Description 10/29/2025 10:30 AM EST Office Visit [facility] MEDICINE 230 [place] [address] Keely Wilburn MD 230 [place] [address] documented as of this encounter Visit Diagnoses Diagnosis Type 2 diabetes mellitus with hyperglycemia, with long-term current use of insulin (HCC) Slow transit constipation documented in this encounter Care Teams Fibreglass Gun Hand Relationship Specialty Start Date End Date Keely Wilburn MD [address] [place] [address] PCP - General Family Medicine 10/27/19 [employer] 08/06/24 documented as of this encounter
--- OUTSIDE RECORDS SUMMARY | 2025-10-01 11:17 | XMS_ITS | Encounter Summary ---
Author Organization [facility] Address [address] [place] [address] Phone Care Team Providers Care Holiday Detector Operator Name Role Phone Keely Wilburn MD Primary Care Provider + [phone] Encounter Details Date Type Department Care Team (Late Contact Info) Description 03/06/2025 Documentation Only [facility] [address] [place] [address] Juju Avila [address] [place] [phone] Social History Tobacco Use Types Packs/Day Years [...] Visit [facility] [address] [place] [address] Terrance Garcia MD [address] [place] [address] [place] [address] documented as of this encounter Visit Diagnoses Not on filedocumented in this encounter Care Teams Holiday Detector Operator Relationship Specialty Start Date End Date Keely Wilburn MD [address] [place] [phone] PCP - General Internal Medicine 02/11/20 documented as of this encounter
--- OUTSIDE RECORDS SUMMARY | 2025-10-01 11:17 | XMS_ITS | Encounter Summary ---
Author Organization [employer] Address 75 [facility] 7t [place] [address] Care Team Providers Care Ceramics Machine Operator Name Role Phone Keely Wilburn MD Primary Care Provider + Reason for Visit * Reason Comments Med Refill Encounter Details Date Type Department Care Team (Late st Contact Info) Description 07/09/2024 Refill [facility] MEDICINE 230 [place], [place] [phone] Keely Wilburn MD 230 [place], [place] [phone] Slow transit constipation; Type 2 diabetes mellitus with hyperglycemia, with long-term current use of insulin ([facility]) Social History Tobacco Use Types Packs/Day Years Used Date Smoking Tobacco: Never Smokeless Tobacco: Never Alcohol Use Standard Drinks/Week Comments Never 0 (1 standard drink = 0.6 oz pur e alcohol) Housing Stability Answer Date Recorded What is your housing situation today? I have bryannabeni gli 08/29/[address] you li [...] Description 10/29/2025 10:30 AM EST Office Visit [facility] MEDICINE 230 [place] [address] Keely Wilburn MD 230 [place] [address] documented as of this encounter Visit Diagnoses Diagnosis Slow transit constipation Type 2 diabetes mellitus with hyperglycemia, with long-term current use of insulin (HCC) documented in this encounter Care Teams Ceramics Machine Operator Relationship Specialty Start Date End Date Keely Wilburn MD [address] [place] [phone] PCP - General Family Medicine 10/27/19 [employer] 08/06/24 documented as of this encounter
--- OUTSIDE RECORDS SUMMARY | 2025-10-01 11:17 | XMS_ITS | Encounter Summary ---
Author Organization [employer] Address 75 [facility] 7t [place] [address] Care Team Providers Care Pharmaceutical Process Engineer Name Role Phone Keely Wilburn MD Primary Care Provider + Reason for Visit * Reason Comments Med Refill Encounter Details Date Type Department Care Team (Late st Contact Info) Description 08/11/2024 Refill [facility] MEDICINE 230 [place], [place] [phone] Keely Wilburn MD 230 [place], [place] [phone] Benign paroxysmal positional vertigo, unspecified laterality Social [...] Description 10/29/2025 10:30 AM EST Office Visit [facility] MEDICINE [address] [place] [phone] Keely Wilburn MD [address] [place] [address] documented as of this encounter Visit Diagnoses Diagnosis Benign paroxysmal positional vertigo, unspecified laterality documented in this encounter Care Teams Pharmaceutical Process Engineer Relationship Specialty Start Date End Date Keely Wilburn MD [address] [place] [phone] PCP - General Family Medicine 10/27/19 [employer] 08/06/24 documented as of this encounter
--- OUTSIDE RECORDS SUMMARY | 2025-10-01 11:17 | XMS_ITS | Encounter Summary ---
Author Organization [facility] Address [address] [place] [address] Phone Care Team Providers Care Cardiology Coordinator Name Role Phone Keely Wilburn MD Primary Care Provider + [phone] Encounter Details Date Type Department Care Team (Late Contact Info) Description 03/26/2025 Documentation Only [facility] [address] [place] [address] Juju Avila [address] [place] [phone] Social History Tobacco Use Types Packs/Day Years [...] [facility] [address] [place] [address] Terrance Garcia MD [address] [place] [address] [place] [address] documented as of this encounter Visit Diagnoses Not on filedocumented in this encounter Care Teams Cardiology Coordinator Relationship Specialty Start Date End Date Keely Wilburn MD [address] [place] [phone] PCP - General Internal Medicine 02/11/20 documented as of this encounter
--- OUTSIDE RECORDS SUMMARY | 2025-10-01 11:17 | XMS_ITS | Encounter Summary ---
Author Organization [employer] Address [address] [facility] 7t [place] [address] Care Team Providers Care Pollution Control Engineer Name Role Phone Keely Wilburn MD Primary Care Provider + Reason for Visit * Reason Comments Med Refill Encounter Details Date Type Department Care Team (Late st Contact Info) Description 07/08/2024 Refill [facility] MEDICINE 230 [place], [place] [phone] Anusha Real MD 230 [place], [place] [phone] Benign paroxysmal positional vertigo, unspecified laterality Social [...] Description 10/29/2025 10:30 AM EST Office Visit [facility] MEDICINE [address] [place] [address] Keely Wilburn MD [address] [place] [address] documented as of this encounter Visit Diagnoses Diagnosis Benign paroxysmal positional vertigo, unspecified laterality documented in this encounter Care Teams Pollution Control Engineer Relationship Specialty Start Date End Date Keely Wilburn MD [address] [place] [phone] PCP - General Family Medicine 10/27/19 [employer] 08/06/24 documented as of this encounter
--- OUTSIDE RECORDS SUMMARY | 2025-10-01 11:17 | XMS_ITS | Encounter Summary ---
Author Organization [employer] Address 75 [facility] 7t [place] [address] Care Team Providers Care Flatwork Supervisor Name Role Phone Keely Wilburn MD Primary Care Provider + Reason for Visit * Reason Comments Med Refill Encounter Details Date Type Department Care Team (Late st Contact Info) Description 07/16/2024 Refill [facility] MEDICINE 230 [place], [place] [phone] Keely Wilburn MD 230 [place], [place] [phone] Type 2 diabetes mellitus with hyperglycemia, with long-term current use of insulin ([facility]) Social History Tobacco [...] Description 10/29/2025 10:30 AM EST Office Visit [facility] MEDICINE [address] [place] [address] Keely Wilburn MD 230 [place] [address] documented as of this encounter Visit Diagnoses Diagnosis Type 2 diabetes mellitus with hyperglycemia, with long-term current use of insulin (HCC) documented in this encounter Care Teams Flatwork Supervisor Relationship Specialty Start Date End Date Keely Wilburn MD [address] [place] [phone] PCP - General Family Medicine 10/27/19 [employer] 08/06/24 documented as of this encounter
--- OUTSIDE RECORDS SUMMARY | 2025-10-01 11:17 | XMS_ITS | Encounter Summary ---
Author Organization [employer] Address 75 [facility] 7t [place] [address] Care Team Providers Care Packing And Wrapping Supervisor Name Role Phone Keely Wilburn MD Primary Care Provider + Reason for Visit * Reason Comments Med Refill Encounter Details Date Type Department Care Team (Late st Contact Info) Description 05/08/2024 Refill [facility] MEDICINE 230 [place], [place] [phone] Keely Wilburn MD 230 [place], [place] [phone] Osteopenia of neck of femur, unspecified laterality [...] 10/29/2025 10:30 AM EST Office Visit [facility] MEDICINE [address] [place] [address] Keely Wilburn MD [address] [place] [address] documented as of this encounter Visit Diagnoses Diagnosis Osteopenia of neck of femur, unspecified laterality documented in this encounter Care Teams Packing And Wrapping Supervisor Relationship Specialty Start Date End Date Keely Wilburn MD [address] [place] [phone] PCP - General Family Medicine 10/27/19 [employer] 08/06/24 documented as of this encounter
--- OUTSIDE RECORDS SUMMARY | 2025-10-01 11:19 | XMS_ITS | Encounter Summary ---
Author Organization [employer] Address 75 [facility] 7t [place] [address] Care Team Providers Care Auto Body Mechanic Apprentice Name Role Phone Keely Wilburn MD Primary Care Provider + Reason for Visit * Reason Comments Med Refill Encounter Details Date Type Department Care Team (Late st Contact Info) Description 08/20/2024 Refill [facility] MEDICINE 230 [place], [place] [phone] Keely Wilburn MD 230 [place], [place] [phone] Benign paroxysmal positional vertigo, unspecified laterality; Type 2 diabetes mellitus with other specified complication, unspecified whether jail insulin use ([facility]) Social History Tobacco Use Types [...] Description 10/29/2025 10:30 AM EST Office Visit [facility] MEDICINE [address] [place] [address] Keely Wilburn MD 230 [place] [address] documented as of this encounter Visit Diagnoses Diagnosis Benign paroxysmal positional vertigo, unspecified laterality Type 2 diabetes mellitus with other specified complication, unspecified whether jail insulin use (HCC) documented in this encounter Care Teams Auto Body Mechanic Apprentice Relationship Specialty Start Date End Date Keely Wilburn MD [address] [place] [phone] PCP - General Family Medicine 10/27/19 [employer] 08/06/24 documented as of this encounter
--- OUTSIDE RECORDS SUMMARY | 2025-10-01 11:19 | XMS_ITS | Encounter Summary ---
Author Organization [employer] Address 75 [facility] 7t [place] [address] Care Team Providers Care Resource Center Teacher Name Role Phone Keely Wilburn MD Primary Care Provider + Reason for Visit * Reason Comments Med Refill Encounter Details Date Type Department Care Team (Late st Contact Info) Description 07/22/2025 Refill [facility] MEDICINE 230 [place], [place] [phone] Keely Wilburn MD 230 [place], [place] [phone] Social History Tobacco Use Types Packs/Day Years [...] Description 10/29/2025 10:30 AM EST Office Visit [facility] MEDICINE [address] [place] [address] Keely Wilburn MD 230 [place] [address] documented as of this encounter Visit Diagnoses Not on filedocumented in this encounter Care Teams Resource Center Teacher Relationship Specialty Start Date End Date Keely Wilburn MD [address] [place] [phone] PCP - General Family Medicine 10/27/19 [employer] 08/06/24 documented as of this encounter
--- OUTSIDE RECORDS SUMMARY | 2025-10-01 11:19 | XMS_ITS | Encounter Summary ---
Author Organization [employer] Address 75 [facility] 7t [place] [address] Care Team Providers Care Flow Worker Name Role Phone Keely Wilburn MD Primary Care Provider + Reason for Visit * Reason Comments Med Refill Encounter Details Date Type Department Care Team (Late st Contact Info) Description 08/18/2024 Refill [facility] MEDICINE 230 [place], [place] [phone] Keely Wilburn MD 230 [place], [place] [phone] Benign paroxysmal positional vertigo, unspecified laterality; Type 2 diabetes mellitus with other specified complication, unspecified whether residential insulin use ([facility]) Social History Tobacco Use Types [...] Description 10/29/2025 10:30 AM EST Office Visit [facility] MEDICINE [address] [place] [address] Keely Wilburn MD 230 [place] [address] documented as of this encounter Visit Diagnoses Diagnosis Benign paroxysmal positional vertigo, unspecified laterality Type 2 diabetes mellitus with other specified complication, unspecified whether residential insulin use (HCC) documented in this encounter Care Teams Flow Worker Relationship Specialty Start Date End Date Keely Wilburn MD [address] [place] [phone] PCP - General Family Medicine 10/27/19 [employer] 08/06/24 documented as of this encounter
--- OUTSIDE RECORDS SUMMARY | 2025-10-01 11:19 | XMS_ITS | Encounter Summary ---
Author Organization [employer] Address 75 [facility] 7t [place] [address] Care Team Providers Care Well Driller Name Role Phone Keely Wilburn MD Primary Care Provider + Reason for Visit * Reason Comments Med Refill Encounter Details Date Type Department Care Team (Late st Contact Info) Description 08/06/2024 Refill [facility] MEDICINE 230 [place], [place] [phone] Keely Wilburn MD 230 [place], [place] [phone] Benign paroxysmal positional vertigo, unspecified laterality Social [...] Office Visit [facility] MEDICINE [address] [place] [phone] Keely Wilburn MD [address] [place] [address] documented as of this encounter Visit Diagnoses Diagnosis Benign paroxysmal positional vertigo, unspecified laterality documented in this encounter Care Teams Well Driller Relationship Specialty Start Date End Date Keely Wilburn MD [address] [place] [phone] PCP - General Family Medicine 10/27/19 [employer] 08/06/24 documented as of this encounter
--- OUTSIDE RECORDS SUMMARY | 2025-10-01 11:19 | XMS_ITS | Encounter Summary ---
Author Organization [email or web address] Address 75 [facility] 7t [place] [address] Care Team Providers Care Applications Development Analyst Name Role Phone Keely Wilburn MD Primary Care Provider + Reason for Visit * Reason Comments Med Refill Encounter Details Date Type Department Care Team (Late st Contact Info) Description 08/13/2024 Refill [facility] MEDICINE 230 [place], [place] [phone] Keely Wilburn MD 230 [place], [place] [phone] Benign paroxysmal positional vertigo, unspecified laterality; Type 2 diabetes mellitus with other specified complication, unspecified whether detention insulin use ([facility]) Social History Tobacco Use Types [...] [facility] [address] [place] [address] Keely Wilburn MD 230 [place] [address] documented as of this encounter Visit Diagnoses Diagnosis Benign paroxysmal positional vertigo, unspecified laterality Type 2 diabetes mellitus with other specified complication, unspecified whether detention insulin use (HCC) documented in this encounter Care Teams Applications Development Analyst Relationship Specialty Start Date End Date Keely Wilburn MD [address] [place] [phone] PCP - General Family Medicine 10/27/19 [employer] 08/06/24 documented as of this encounter
[2025-10-01 11:40] LABS: Alanine Aminotransferase 15 U/L (0-31); Albumin Level 4.7 g/dL (3.5-5.0); Alkaline Phosphatase 80 U/L (39-117); Anion Gap 13 (12-20); Aspartate Amino Transferase 31 U/L (5-31); Blood Urea Nitrogen 30 mg/dL (9-16); Calcium 10.0 mg/dL (8.4-10.2); Carbon Dioxide 27 mmol/L (22-29); Chloride 107 mmol/L (96-108); Cholesterol 147 mg/dL (<200); Estimated Glomerular Filt Rate 48; HDL Cholesterol 41 mg/dL (>40); Potassium 4.5 mmol/L (3.3-5.1); Sodium 142 mmol/L (135-145); Total Protein 8.3 g/dL (6.5-8.0); Triglycerides 144 mg/dL (<150)
[2025-10-01 12:03] LABS: Microalbum/Creatinine Ratio Ur 149.9 ug/mg cr (<30)
[2025-10-08 17:34] LABS: Vitamin D 25-OH, D2 <4 ng/mL; Vitamin D 25-OH, D3 72 ng/mL; Vitamin D 25-OH, Total 72 ng/mL (30-100)
== END 2025-10-01 09:08 | disposition home or self-care (01) ==
LOC: HO.10HDL 09:07
PROVIDERS: Physician Assistant Medical; Visit Provider Student in an Organized Health Care Education/Training Program
DX: I10 Essential (primary) hypertension (principal); M11.20 Other chondrocalcinosis, unspecified site; E55.9 Vitamin D deficiency, unspecified; E78.5 Hyperlipidemia, unspecified; E11.65 Type 2 diabetes mellitus with hyperglycemia
CPT/HCPCS: 36415; 80053; 80061; 82043; 82306; 82570; 83036; 85025; 85652; 86140

== ENCOUNTER 2025-10-27 09:20 | Outpatient (AMB) | payer OTHER, SELFPAY ==
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
[2025-10-27 09:35] VITALS: BP 118/72; PULSE 70; O2SAT 98; BMI 37.1
--- OUTSIDE RECORDS SUMMARY | 2025-10-27 10:46 | XMS_ITS | Encounter Summary ---
Author Organization [employer] Address [address] [facility] 7t [place] [address] Care Team Providers Care Manufacturing Technician Name Role Phone Keely Wilburn MD Primary Care Provider + Reason for Visit * Reason Comments Med Refill Encounter Details Date Type Department Care Team (Late st Contact Info) Description 01/25/2025 Refill [facility] [address] [place], [place] [phone] Keely Wilburn MD [address] [place], [place] [phone] Social History Tobacco Use Types Packs/Day Years [...] Description 10/29/2025 10:30 AM EST Office Visit [facility] [address] [place] [phone] Keely Wilburn MD [address] [place] [phone] documented as of this encounter Visit Diagnoses Not on filedocumented in this encounter Care Teams Manufacturing Technician Relationship Specialty Start Date End Date Keely Wilburn MD [address] [place] [phone] PCP - General Family Medicine 10/27/19 [place] 08/06/24 documented as of this encounter
--- OUTSIDE RECORDS SUMMARY | 2025-10-27 10:46 | XMS_ITS | Encounter Summary ---
Author Organization [employer] Address [address] [facility] [address] [place] [address] Care Team Providers Care Buckle Strap Puncher Name Role Phone Keely Wilburn MD Primary Care Provider + Reason for Visit * Reason Comments Med Change Request Encounter Details Date Type Department Care Team ([facility] st Contact Info) Description 11/06/2023 Refill [facility] [address] [place], [place] [phone] Keely Wilburn MD [address] [place], [place] [phone] Osteopenia of neck of femur, unspecified laterality [...] Description 10/29/2025 10:30 AM EST Office Visit [facility] [address] [place] [phone] Keely Wilburn MD [address] [place] [phone] documented as of this encounter Visit Diagnoses Diagnosis Osteopenia of neck of femur, unspecified laterality documented in this encounter Care Teams Buckle Strap Puncher Relationship Specialty Start Date End Date Keely Wilburn MD [address] [place] [phone] PCP - General Family Medicine 10/27/19 [place] 08/06/24 documented as of this encounter
--- OUTSIDE RECORDS SUMMARY | 2025-10-27 10:46 | XMS_ITS | Encounter Summary ---
Author Organization [employer] Address [address] [facility] [address] [place] [address] Care Team Providers Care Electrical Software Engineer Name Role Phone Keely Wilburn MD Primary Care Provider + Reason for Visit * Reason Onset Date Comments Hospital Follow-up 12/08/2024 Encounter Details Date Type Department Care Team ([facility] st Contact Info) Description 12/08/2024 Telephone [facility] [address] [place], [place] [phone] Keely Wilburn MD [address] [place], [place] [phone] Hospital Follow-up Social History Tobacco Use Types [...] daughter requesting a HDF appt. Hospital: [place], [place] Date of admission: 12/02 Discharge date: 12/05 Diagnosed: Diarrhea, Vomiting, Abdominal Pain, Chest Pain, Dizziness *Send message to [place] Clinical Care Coordinators documented in this encounter Plan of Treatment Upcoming Encounters Date Type Department Care Team (Late st Contact Info) Description 10/29/2025 10:30 AM EST Office Visit [facility] [address] [place] [phone] Keely Wilburn MD [address] [place] [address] documented as of this encounter Visit Diagnoses Not on filedocumented in this encounter Care Teams Electrical Software Engineer Relationship Specialty Start Date End Date Keely Wilburn MD [address] [place] [phone] PCP - General Family Medicine 10/27/19 [employer] 08/06/24 documented as of this encounter
--- OUTSIDE RECORDS SUMMARY | 2025-10-27 10:46 | XMS_ITS | Encounter Summary ---
Author Organization [employer] Address [address] [facility] 7t [place] [address] Care Team Providers Care Cook Ice Cream Name Role Phone Keely Wilburn MD Primary Care Provider + Reason for Visit * Reason Comments Med Refill Encounter Details Date Type Department Care Team (Late st Contact Info) Description 01/18/2024 Refill [facility] [address] [place], [place] [phone] Keely Wilburn MD [address] [place], [place] [phone] Other postherpetic nervous system involvement Social History [...] Description 10/29/2025 10:30 AM EST Office Visit [facility] [address] [place] [phone] Keely Wilburn MD [address] [place] [phone] documented as of this encounter Visit Diagnoses Diagnosis Other postherpetic nervous system involvement documented in this encounter Care Teams Cook Ice Cream Relationship Specialty Start Date End Date Keely Wilburn MD [address] [place] [phone] PCP - General Family Medicine 10/27/19 [email or web address] 08/06/24 documented as of this encounter
--- OUTSIDE RECORDS SUMMARY | 2025-10-27 10:46 | XMS_ITS | Clinical Summary ---
Author Organization [address] [place] [address] Address [address] [place] [address] Phone Care Team Providers Care Computer Trainer Name Role Phone Keely Wilburn MD Primary Care Provider [phone] Allergies Active Allergy Reactions Criticality Noted Date Comments Amoxicillin 03/17/2024 Aspirin Hives,Unknown 11/16/2022 Multivitamin 09/29/2025 Other Reaction(s): Pruritus, hives Penicillin G 04/11/2013 Other reaction(s): Rash Penicillins Rash,Unknown 02/21/2017 Medications acetaminophen (TYLENOL) 500 mg tablet [...] each day. 60 g 2 5 Active Hospital, Clinic, or Other Facility Administered Medication Ordered Dose Route Frequency Start Date End Date Status hyaluronate sodium, stabilized intra-articular injection 60 mgIndications:Primary osteoarthritis of both knees 60 mg Once PRN Procedure 09/29/2025 09/29/2025 Ended hyaluronate sodium, stabilized intra-articular injection 60 mgIndications:Primary osteoarthritis of both knees 60 mg Once PRN Procedure 10/06/2025 10/06/2025 Ended Active Problems Problem Noted Date Diagnosed Date Anemia 10/03/2024 Asthma 10/03/2024 Diabetes mellitus type 2, uncomplicated 10/03/20 24 Hypertension 10/03/2024 Closed fracture of lower end of humerus 08/11/20 10 Overview (10/03/2024): IMO update Encounters Date Type Department Care Team Description 10/06/2025 11:15 AM EST Office Visit Orthopedic Surgery - [address] [phone] Eloisa Chaudhari PA Primary osteoarthritis of both knees (Primary Dx) 10/05/2025 8:15 AM EST Office Visit [facility] [address] [phone] Cr Bolton DPM Controlled type 2 diabetes with neuropathy ([facility] V24, [facility] V28) (Primary Dx); PVD (peripheral vascular disease) ([facility] V24); Arthritis of both feet; Tinea pedis of both feet; Xerosis cutis; Dermatophytosis, nail 10/02/2025 10:39 AM EST - 10/02/2025 11:59 PM EST Hospital Encounter [facility] Non-Invasive Cardiology [address] [place] [phone] Major depressive disorder, recurrent, moderate ([facility] V24, [facility] V28) Discharge Disposition: Home or Self Care 09/29/2025 9:30 AM EST Office Visit [facility]opedic [facility] [address] [phone] Eloisa Chaudhari PA Primary osteoarthritis of both knees (Primary Dx) 09/15/2025 Telephone [facility] [address] [phone] Eloisa Chaudhari PA 08/28/2025 10:45 AM EDT Office Visit [facility] [address] [phone] Eloisa Chaudhari PA Primary osteoarthritis of both knees (Primary Dx) from Last 3 Months Surgical History Surgery Date Site/Laterality Comments OTHER SURGICAL HISTORY PROCEDURE: DENIES PREVIOUS SURGERY OTHER SURGICAL HISTORY PROCEDURE: WA LIG/TRNSXJ FLP TUBE ABDL/VAG APPR UNI/BI Medical History Medical History Date Comments Asthma DX:Asthma High blood pressure DX:High bloo d pressure Anemia DX:Anemia Anxiety state DX:Anxiety state Hypertension DX:Hypertension Hypertension DX:Hypertension Diabetes mellitus type 2, un complicated ([facility] V24, [facility] V28) DX:Diabetes mellitus type 2 , uncomplicated ([facility]) Esophageal reflux DX:Esophageal reflux Hyperlipidemia DX:Hyperlipidemi a [...] Care Team (Late st Contact Info) Description 12/08/2025 9:00 AM EST Office Visit Orthopedic Surgery - [place] [address] [phone] Cr Bolton, LORENA [address] [address] Health Maintenance Due Date Last Done Comments [...] 2025 , 08/24/2022, 07/13/2022, Additional history exists Diabetes: Blood Sugar Control [...] Procedure Name Priority Date/Time Associated Diagnosis Comments WA ARTHROCENTESIS/ASPI RATION/INJECTION MAJOR JOINT/BURSA W/O U/S GUIDANCE Routine 10/06/2025 11:15 AM EST Primary osteoarthritis of both knees ECG 12-LEAD Routine 10/02/2025 10:50 AM EST Major depressive disorder, recurrent, moderate (CMS/HCC V24, CMS/HCC V28) WA ARTHROCENTESIS/ASPI RATION/INJECTION MAJOR JOINT/BURSA W/O U/S GUIDANCE Routine 09/29/2025 9:30 AM EST Primary osteoarthritis of both knees ANNUAL BMP BLOOD TEST Routine 03/24/2022 HM COLONOSCOPY Routine 09/12/2018 HEMOGLOBIN A1C Routine 07/12/2018 from Last 3 Months or Most Recently Relevant to Health Maintenance Results * WA ARTHROCENTESIS/ASPIRATION/INJECTION MAJOR JOINT/BURSA W/O U/S GUIDANCE (10/06/2025 11:15 AM EST) Narrative Eloisa Chaudhari PA - 10/06/2025 11:15 AM EST AMERICA Brito 10/06/2025 11:24 AM L Inj/Asp: R knee Indications: pain Details: 22 G needle, medial approach Medications: 60 mg hyaluronate sodium, stabilized 60 mg/3 mL Informed Consent: Laterality: Left Relevant images/test results available and reviewed: yes Health status cleared: Yes Procedure/treatment, purpose, treatment alternatives, risks/potential complications and benefits explained: yes Patient questions answered: yes Patient agrees, verbalizes understanding, and wants to proceed: yes Consent given by: Patient Informed consent discussion completed by Physician/ARUN with patient: Verbal Pre-procedure timeout performed: yes us Eloisa CROSS IN CLINIC/BEDSIDE ORDERABLES Final Result * ECG 12 lead (10/02/2025 10:50 AM EST) Ventricular Rate ECG 65 BPM GEMUSE Atrial Rate 65 BPM GEMUSE P-R Interval 174 ms GEMUSE QRS Duration 88 ms GEMUSE Q-T Interval 426 ms GEMUSE QTc 443 ms GEMUSE P Wave Leopold 33 degrees GEMUSE R Leopold -19 degrees GEMUSE T Leopold 59 degrees GEMUSE ECG Interpretation Normal sinus rhythm Minimal voltage criteria for LVH, may be normal variant ( R in aVL ) Borderline ECG When compared with ECG of 08-SEP-2023 14:09, No significant change was found Confirmed by AUBREY ALLAN ([id number]) on 10/04/2025 4:51:25 PM GEMUSE 10/02/2025 10:5 0 AM EST 10/04/2025 4:51 PM EST Result [facility] Antonia CROSS ECG ORDERABLES Final Resul t GEMUSE * WA ARTHROCENTESIS/ASPIRATION/INJECTION MAJOR JOINT/BURSA W/O U/S GUIDANCE (09/29/2025 9:30 AM EST) Eloisa Prnigle PA - 09/29/2025 9:30 AM EST AMERICA Brito 09/29/2025 9:54 AM L Inj/Asp: L knee Indications: pain Details: 22 G needle, medial approach Medications: 60 mg hyaluronate sodium, stabilized 60 mg/3 mL Informed Consent: Laterality: Left Relevant images/test results available and reviewed: yes Health status cleared: Yes Procedure/treatment, purpose, treatment alternatives, risks/potential complications and benefits explained: yes Patient questions answered: yes Patient agrees, verbalizes understanding, and wants to proceed: yes Consent given by: Patient Informed consent discussion completed by Physician/ARUN with patient: Verbal Pre-procedure timeout performed: yes Result [facility] Eloisa CROSS IN CLINIC/BEDSIDE ORDERABLES Final Result * Annual BMP Blood Test (03/24/2022) Pathologist [facility] Annual BMP Blood Test abstracted Result [facility] Historical Provider HEALTH MAINTENANCE Final Result * Colonoscopy (09/12/2018) Pathologist [facility] Colonoscopy no interpretation , abstracted Anatomical Region Laterality Modality Other Result [facility] Historical Provider HEALTH MAINTENANCE Final Result * (ABNORMAL) Hemoglobin A1c (07/12/2018) [facility] Hemoglobin A1C 6.5(A) 4.0 - 6.0 % Blood Venous blood specimen / Unknown Historical Provider LAB BLOOD ORDERABLES Meka oliva Result from Last 3 Months or Most Recently Relevant to Health Maintenance Insurance [facility] MEDICARE Member Subscriber Plan / Payer (Ef fective 2024-Present) Name:Adrianne Landeros Relation to Subscriber:Self Name:Adrianne Landeros Payer ID:[id number] Group ID:[id number] Type:Not on file Address: [place] [address] [place] [phone] Advance Directives Documents on File Type Date Recorded Patient Rubber Process Hand Expl anation Health Care Decision (hx) 04/22/2018 [...] (hx) 04/22/2018 AD BECKWITH DIRECTIVE Care Teams Computer Trainer Relationship Specialty Start Date End Date Keely Wilburn MD [address] [place] [phone] PCP - General 03/01/22
--- OUTSIDE RECORDS SUMMARY | 2025-10-27 10:46 | XMS_ITS | Encounter Summary ---
Author Organization [employer] Address [address] [facility] [address] [place] [address] Care Team Providers Care Tonger Name Role Phone Keely Wilburn MD Primary Care Provider + Reason for Visit * Reason Onset Date Comments Med Refill 05/07/2025 Encounter Details Date Type Department Care Team ([facility] st Contact Info) Description 05/07/2025 Telephone [facility] [address], [place] [phone] Keely Wilburn MD [address] [place], [place] [phone] Med Refill Social History Tobacco Use Types [...] 0.6 MG tablet To be sent to: [facility]/pharmacy #[id number] [place] [address] documented in this encounter Plan of Treatment Upcoming Encounters Date Type Department Care Team (Late st Contact Info) Description 10/29/2025 10:30 AM EST Office Visit [facility] [address] [place] [address] Keely Wilburn MD [address] [place] [address] documented as of this encounter Visit Diagnoses Not on filedocumented in this encounter Care Teams Tonger Relationship Specialty Start Date End Date Keely Wilburn MD [address] [place] [address] PCP - General Family Medicine 10/27/19 [employer] 08/06/24 documented as of this encounter
--- OUTSIDE RECORDS SUMMARY | 2025-10-27 10:46 | XMS_ITS | Encounter Summary ---
Author Organization [employer] Address [address] [facility] [address] [place] [address] Care Team Providers Care Link Trainer Teacher Name Role Phone Keely Wilburn MD Primary Care Provider + Encounter Details Date Type Department Care Team (Late Contact Info) Description 01/17/2023 Abstract [facility] [address] [place] [address] Keely Wilburn MD [address] [place], [place] [phone] Social History Tobacco Use Types Packs/Day Years [...] 10:30 AM EST Office Visit [facility] [address] [place], [place] [phone] Keely Wilburn MD [address] [place] [address] documented as of this encounter Visit Diagnoses Not on filedocumented in this encounter Care Teams Link Trainer Teacher Relationship Specialty Start Date End Date Keely Wilburn MD [address] [place] [address] PCP - General Family Medicine 10/27/19 [employer] 08/06/24 documented as of this encounter
--- OUTSIDE RECORDS SUMMARY | 2025-10-27 10:46 | XMS_ITS | Clinical Summary ---
Author Organization [employer] Address [address] [facility] 7t [place] [address] Care Team Providers Care Collection Systems Modeler Name Role Phone Keely Wilburn MD Primary Care Provider + Allergies Active Allergy Reactions Criticality Noted Date Comments Aspirin Hives 11/16/2022 Penicillin G 04/11/2013 Other reaction(s): Rash Medications cyanocobalamin (Vitamin B-12) 100 MCG tablet 01/27/20 21 Active glucose blood (OneTouch Ultra) test strip 01/23/20 17 Active sennosides (Senokot) 8.6 MG tablet 12/24/19 21 Active timolol (Timoptic) 0.5 % ophthalmic solution Active gabapentin (Neurontin) 100 MG capsule Take 100 mg by mouth in the morning and 100 mg at noon and 100 mg in the evening. Active rosuvastatin (Crestor) 20 MG tablet Take 20 mg by mouth Once per day. 10/23/20 22 Active Acetaminophen Extra Strength 500 MG tablet TAKE 1 TABLET BY MOUTH EVERY 12 HOURS NEEDED 60 tablet 1 05/30/20 23 Active Diclofenac Sodium 1 % gel APPLY 2 GRAMS TOPICALLY TO AFFECTED AREA 3 TIMES A DAY 100 g 1 09/19/20 23 Active lidocaine (Lidoderm) 5 % patchIndications :Other postherpetic nervous system involvement APPLY 1 PATCH IN THE MORNING REMOVE AND DISARD PATCH WITHIN 12 HOURS OR DIRECTED 30 patch 06/16/20 24 Active docusate sodium (Colace) 100 MG capsuleIndicatio ns:Slow transit constipation TAKE ONE CAPSULE BY MOUTH TWICE A DAY NEEDED (VIAL) 60 capsule 11 07/11/20 24 Active benazepril (Lotensin) 20 MG tabletIndication s:Primary hypertension TAKE 1 TABLET BY MOUTH TWICE A DAY 60 tablet 11 10/02/20 24 Active allopurinol (Zyloprim) 100 MG tablet Take 1 tablet by mouth Once per day. 02/15/20 24 Active amLODIPine (Norvasc) 5 MG tablet Take 1 tablet by mouth Once per day. 11/25/19 25 Active ammonium lactate (Lac-Hydrin) 12 % lotion Apply 1 Application. topically if needed. 11/25/19 25 Active brimonidine (AlphaGAN) 0.2 % ophthalmic solution Administer 1 drop into the right eye in the morning and 1 drop in the evening. 11/10/20 24 Active budesonide (Pulmicort) 1 MG/2ML nebulizer solution Take 1 mg by nebulization in the morning and at bedtime. 1 vial 02/18/20 24 Active colchicine 0.6 MG tablet Take 1 tablet by mouth Once per day. 11/25/19 25 Active Continuous Glucose Sensor (FreeStyle Kelly 2 Sensor) misc Use as directed 11/25/19 25 Active ketoconazole (NIZOral) 2 % cream Apply 1 Application. topically Once per day. 11/25/19 25 Active ketorolac (Acular) 0.5 % ophthalmic solution Administer 1 drop into both eyes in the morning and 1 drop in the evening. 11/16/19 25 Active montelukast (Singulair) 10 MG tablet Take 1 tablet by mouth Once per day. For allergy symptoms 02/11/20 24 Active omeprazole (PriLOSEC) [address] capsule Take 1 capsule by mouth in the morning. 11/25/19 25 Active sertraline (Zoloft) 50 MG tablet Take 1 tablet by mouth Once per day. 11/25/19 25 Active Blood Pressure Monitoring (Blood Pressure Cuff) misc Use daily as prescribed 1 each 01/16/20 25 Active amLODIPine-benaz epril (Lotrel) 5-40 MG capsule Take 1 capsule by mouth Once per day. 30 capsule 11 01/16/20 25 026 Active Dulaglutide (Trulicity) 1.5 MG/0.5ML solution auto-injectorInd ications:Type 2 diabetes mellitus with hyperglycemia, with long-term current use of insulin ([facility]) Inject 1.5 mg under the skin 1 (one) time per week. 2 mL 5 02/03/20 25 Active albuterol (ProAir HFA) 108 (90 Base) MCG/ACT inhalerIndicatio ns:Moderate persistent asthma, unspecified whether complicated INHALE 2 PUFFS BY MOUTH EVERY 4 TO 6 HOURS IF NEEDED 18 g 3 07/10/20 25 Active albuterol 1.25 MG/3ML nebulizer solutionIndicati ons:Viral upper respiratory tract infection INHALE 1 VIAL VIA NEBULIZER EVERY 6 HOURS IF NEEDED FOR WHEEZING 75 mL 3 07/10/20 25 Active Calcium Antacid Extra Strength 750 MG chewable tablet CHEW 1 TABLET EVERY DAY 84 tablet 2 07/20/20 25 Active cholecalciferol (Vitamin D-3) 1.25 MG (18123 UT) capsule TAKE 1 CAPSULE BY MOUTH ONCE WEEKLY 12 capsule 1 08/04/20 25 Active Lantus SoloStar 100 UNIT/ML penIndications:T ype 2 diabetes mellitus with other specified complication, unspecified whether penitentiary insulin use ([facility]) INJECT 18 UNITS SUBCUTANEOUSLY ONCE DAILY 45 mL 1 08/06/20 25 Active meclizine (Antivert) 25 MG tabletIndication s:Benign paroxysmal positional vertigo, unspecified laterality Take 1 tablet (25 mg) by mouth if needed in the morning, at noon, and at bedtime for dizziness. TAKE ONE TABLET BY MOUTH EVERY DAY NEEDED FOR DIZZINESS (VIAL) 30 tablet 1 09/21/20 25 Active Lancets (OneTouch Delica Plus [id number]) miscIndications: Type 2 diabetes mellitus with diabetic nephropathy, with long-term current use of insulin ([facility]) USE TO TEST BLOOD SUGAR THREE TIMES A DAY 100 each 11 09/21/20 25 Active Active Problems Problem Noted Date Diagnosed [...] daughter who agreed to bring [place] [facility] [place] to rule out [...] scan abdomen and pelvis on [place]2024 [place] [facility] [place] & Plan (06/09/2025 10:46 AM EDT): [...] scan abdomen and pelvis on 12/02/2024 at [facility] Assessment & Plan (01/15/2025 3:49 PM EST): See pancreatic lesions above, will try to expedite MRI of the abdomen Venous ulcer of left leg (CMS/HCC) 07/31/2024 Assessment & Plan (07/31/2024 2:34 PM EDT): Ulcer dressing done by RN, see above. 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 ([facility]) 03/26/2017 Microalbuminuria 08/13/2012 Obesity 08/13/2012 Asthma 06/18/2012 [...] Risk: The 10-year ASCVD risk score (Yuval DK, et al., 2019) is: 49% Values used [...] + Lantus 18 units and follow-up with railroad crane operator, I told him to address change of GLP to railroad crane operator to the 1 that has a better [...] requested refill of Trulicity be sent to [facility] as she had difficulty picking it up at local [facility] due to supply issues Assessment & Plan [...] Plan (05/24/2023 11:18 AM EDT): r/o hypoglycemia BOBBIN WINDER TENDER will monitor symptoms of dizziness and pt [...] Encounters Date Type Department Care Team Description 10/20/2025 Patient Outreach [facility] [address] [place] [address] Keely Wilburn MD Pre-visit Planning ((Unable to reach for PVP screening, LVM) to be completed in office ) 10/02/2025 Telephone [facility] [address] [place] [address] Keely Wilburn MD verbal orders 09/21/2025 Refill [facility] [address] [place] [address] Keely Wilburn MD Benign paroxysmal positional vertigo, unspecified laterality; Type 2 diabetes mellitus with diabetic nephropathy, with long-term current use of insulin ([facility]) 08/25/2025 Orders Only GENERIC EXTERNAL DATA DEPARTMENT Provider, Generic External Data 08/20/2025 Telephone [facility] [address] [place] [address] Keely Wilburn MD October08/07/2025 Telephone [facility] [address] [place] [address] Keely Wilburn MD verbal order needed 08/05/2025 Refill [facility] [address] [place], [place] [phone] Kaci Le, Type 2 diabetes mellitus with other specified complication, unspecified whether penitentiary insulin use ([facility]) 08/02/2025 Refill [facility] [address] [place] [address] Keely Wilburn MD 07/28/2025 Orders Only GENERIC EXTERNAL DATA DEPARTMENT Provider, Generic External Data from Last 3 Months Immunizations Immunization Administration [...] Description 10/29/2025 10:30 AM EST Office Visit [facility] [address] [place] [address] Keely Wilburn MD [address] [place] [address] Health Maintenance Due Date Last Done Comments Eye Exam 1960 Hepatitis B Vaccines (3 of 3 - 19+ 3-dose series) 10/17/2017 05/21/2017, 04/17/2017 RSV Patients and Patients Aged 60 years or older (1 - 1-dose 75+ series) 2023 Depression Screening 11/16/2023 11/16/2022, 11/16/19 23 COVID-19 Vaccine ( season) 2025 03/29/2022, 09/20/2021, 08/19/2021 Influenza Vaccine (#1) 2025 4, 08/24/2022, 07/13/2022, Additional history exists Lipid Panel [...] age to complete this topic Sigmoidoscopy Discontinued Goals Goal Patient Goal Type Associated Problems Recent Progress Patient-Stated? Author Help patients manage their type 2 diabetes Care Plan Help patients manage their type 2 diabetes No Macarena Erazo Weekly blood pressure task Care Plan Weekly blood pressure task No Macarena Erazo Help patients manage their type 2 diabetes Care Plan Help patients manage their type 2 diabetes No Macarena Erazo Patient has chronic kidney disease Care Plan Patient has chronic kidney disease No Macarena Erazo Weekly blood pressure task Care Plan Weekly blood pressure task No Macarena Erazo Patient has chronic kidney disease Care Plan Patient has chronic kidney disease No Macarena Erazo Weekly blood pressure task Care Plan Weekly blood pressure task No Linden Schererie Weekly blood pressure task Care Plan Weekly blood pressure task No Niesha Jaymie Patient has chronic kidney disease Care Plan Patient has chronic kidney disease No Jaymie Scherer Patient has chronic kidney disease Care Plan Patient has chronic kidney disease No Jaymie Scherer Procedures Procedure Name Priority Date/Time Associated Diagnosis [...] Whole Blood 172(H) 60 - 115 mg/dL [facility] Comment:METER #: [id number] Testing performed in the Endocrinology Department [address] , [address], [place]. 08/25/2025 9:00 AM EDT 08/25/2025 9:04 AM EDT us Generic External Data Provider LAB BLOOD ORDERAB LES Final Result [facility] [address] [place] [phone] * (ABNORMAL) POCT HGB A1C (06/09/2025 [...] AM EST Narrative 10/16/2024 9:41 AM EST [facility] [address] [place] [address] Mammography Report Signed Patient: Adrianne Landeros MR#: [id number] : 1950 Acct:[id number] Age/Sex: 74 / F ADM Date: 10/07/24 Loc: HO.MAMMO Attending Dr: Keely Wilburn MD Ordering Physician: Keely Wilburn MD Results: 1Ne gative Date of Service: 10/07/24 Follow Up: 1 Year From Orig ina Mammogram Procedure(s): MM tomosynthesis screening BI Accession Number(s): [id number] cc: Keely Wilburn MD EXAMINATION: MM SCREENING [...] by: Marylou Goldstein DO 10/16/2024 09:38 AM [facility] Dictated By: Marylou Goldstein DO Signed By: <Electronically signed by Marylou Goldstein DO in OV> 10/16/24937 DD/ TD/TT: 10/07/24904 Regional Transfer Liaison: Procedure Note Donotuseinterpreter, Image - 10/16/2024 [facility] [address] [place] [address] Mammography Report Signed Patient: Adrianne LanderosMR#: [id number] : 8Acct:[id number] Age/Sex: 74 / FADM Date: 10/07/24 Loc: JOSEO Attending Dr: Keely Wilburn MD Ordering Physician: Keely Wilburn MDResults: 1Ne gative Date of Service: 10/07/24Follow Up: 1 Year From Orig inal Mammogram Procedure(s): MM tomosynthesis screening BI Accession Number(s): [id number] cc: Keely Wilburn MD EXAMINATION: MM SCREENING [...] in OV> 10/16/24937 DD/ 9 TD/TT: 10/07/24904 Regional Transfer Liaison: Keely Wilburn MD [facility] PROCEDURES Edited Result - Final * (ABNORMAL) Lipid Panel with Reflex to Direct LDL (08/04/2024 9:55 AM EDT) Triglycerides 174(H) <150 mg/dL [facility] Comment:Desirable Triglyceri de: less than 150 mg/dLBorderline High Triglyceride 150-199 mg/dLHigh Triglyceride: 200-499 mg/dLVery High Triglyceride: greater than or equal to 5OO mg/dL Cholesterol 145 <200 mg/dL [facility] Comment:Desirable Cholestero l: less than 200 mg/dLBorderline High Cholesterol: 200-239 mg/dLHigh Cholesterol: greater than 239 mg/dL LDL Cholesterol Calculated 68 <100 mg/dL [facility] Comment:Desirable LDL: less than 100 mg/dLNear Optimal/Above Optimal LDL: 110- 129 mg/dLBorderline High LDL: 130-159 mg/dLHigh LDL: 160-189 mg/dLVery High LDL: greater than or equal to 190 mg/dL HDL Cholesterol 43 >40 mg/dL [facility] Comment:Desirable HDL: great er than 40 mg/dL Note: This HDL assay may give artificially low results in patients with liver disease. Blood 08/04/2024 9:55 AM EDT 08/04/2024 2:27 PM EDT us Keely Wilburn MD LAB BLOOD ORDERABLES Fin al Result Performing Organization Address [facility] Co de Phone Number [facility] [address] [place] [phone] * Hepatitis C Antibody with Reflex to HCV, RNA, Quantitative, Real-Time PCR (05/16/2024 11:17 AM EDT) Hepatitis C Antibody Nonreactive Nonreactive [facility] Comment:Antibodies to HCV no t detected; does not exclude early acuteHCV infection. Blood Venous blood specimen / Unknown 05/16/2024 11:17 AM EDT 05/16/2024 1:09 PM EDT us Anusha Real MD LAB BLOOD ORDERABLES Final Res ult Performing Organization Address [facility] Co de Phone Number [facility] [address] [place] [phone] [phone] * (ABNORMAL) Hm Colonoscopy (02/06/2024) Colonoscopy Abnormal( A) Normal [facility] Comment:Tubular adenoma; neg ative for high grade dysplasia and carcinoma us Keely Wilburn MD HEALTH MAINTENANCE Final Result Performing Organization Address [facility] Co de Phone Number [facility] [address] [place] [phone] * OCCULT BLOOD STOOL X3 (11/23/2019 3:00 PM EST) OCCULT BLOOD STOOL-1 NEG NEG [facility] OCCULT BLOOD STOOL-1 DATE 11/20/2019 [facility] OCCULT BLOOD STOOL-2 NEG NEG [facility] OCCULT BLOOD STOOL-2 DATE 11/21/2019 [facility] OCCULT BLOOD STOOL-3 NEG NEG [facility] OCCULT BLOOD STOOL-3 DATE 11/23/2019 [facility] 11/23/2019 3:00 PM EST us Keely Wilburn MD HISTORICAL/NON ORDERABLE LABS Final Result [facility] [address] [place] [address] from Last 3 Months or Most Recently Relevant to Health Maintenance Additional Health Concerns Active Problems Noted Date Diagnosed Date Help patients manage their type 2 diabetes 10/02 Weekly blood pressure task 10/02/2025 Help patients manage their type 2 diabetes 10/02 Patient has chronic kidney disease 10/02/2025 Weekly blood pressure task 10/02/2025 Patient has chronic kidney disease 10/02/2025 Weekly blood pressure task 10/20/2025 Weekly blood pressure task 10/20/2025 Patient has chronic kidney disease 10/20/2025 Patient has chronic kidney disease 10/20/2025 Insurance [facility] [employer] (O D-SNP) [place] [id number] Care Teams Collection Systems Modeler Relationship Specialty Start Date End Date Keely Wilburn MD [address] [place] [phone] PCP - General Family Medicine 10/27/19 [employer] 08/06/24
--- OUTSIDE RECORDS SUMMARY | 2025-10-27 10:46 | XMS_ITS | Encounter Summary ---
Author Organization [employer] Address [address] [facility] 7t [place] [address] Care Team Providers Care Hosiery Bagger Name Role Phone Keely Wilburn MD Primary Care Provider + Encounter Details Date Type Department Care Team (Late st Contact Info) Description 11/08/2023 Abstract [facility] [address] [place], [place] [phone] Keely Wilburn MD [address] [place], [place] [phone] Social History Tobacco Use Types Packs/Day Years [...] AM EST Office Visit [facility] [address] [place] [phone] Keely Wilburn MD [address] [place] [phone] documented as of this encounter Visit Diagnoses Not on filedocumented in this encounter Care Teams Hosiery Bagger Relationship Specialty Start Date End Date Keely Wilburn MD [address] [place] [phone] PCP - General Family Medicine 10/27/19 [employer] 08/06/24 documented as of this encounter
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
--- OUTSIDE RECORDS SUMMARY | 2025-10-27 10:46 | XMS_ITS | Encounter Summary ---
Author Organization [employer] Address [address] [facility] 7[address] [place] [address] Care Team Providers Care Clinical Nursing Professor Name Role Phone Keely Wilburn MD Primary Care Provider + Reason for Visit * Reason Comments Med Refill Encounter Details Date Type Department Care Team (Late st Contact Info) Description 12/09/2023 Refill [facility] [address] [place], [place] [phone] Keely Wilburn MD [address] [place], [place] [phone] Osteopenia of neck of femur, unspecified laterality [...] Description 10/29/2025 10:30 AM EST Office Visit [facility] [address] [place] [phone] Keely Wilburn MD [address] [place] [phone] documented as of this encounter Visit Diagnoses Diagnosis Osteopenia of neck of femur, unspecified laterality documented in this encounter Care Teams Clinical Nursing Professor Relationship Specialty Start Date End Date Keely Wilburn MD [address] [place] [phone] PCP - General Family Medicine 10/27/19 [employer] 08/06/24 documented as of this encounter
--- OUTSIDE RECORDS SUMMARY | 2025-10-27 10:46 | XMS_ITS | Encounter Summary ---
Author Organization [employer] Address 75 [facility] 7t [place] [address] Care Team Providers Care Infection Preventionist Name Role Phone Keely Wilburn MD Primary Care Provider + Reason for Visit * Reason Comments Med Change Request Encounter Details Date Type Department Care Team ([facility] st Contact Info) Description 11/09/2023 Refill [facility]C MED & PEDS [address] [place], [place] [phone] Kaci Le, [address] [place] [address] Type 2 diabetes mellitus with other specified complication, 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 ([facility]) Social History [...] Description 10/29/2025 10:30 AM EST Office Visit [facility] MEDICINE [address] [place] [address] Keely Wilburn MD [address] [place] [address] documented as of this encounter Visit Diagnoses Diagnosis Type 2 diabetes mellitus with other specified complication, unspecified whether half-way insulin use (HCC) documented in this encounter Care Teams Infection Preventionist Relationship Specialty Start Date End Date Keely Wilburn MD [address] [place] [address] [phone] PCP - General Family Medicine 10/27/19 [employer] 08/06/24 documented as of this encounter
--- OUTSIDE RECORDS SUMMARY | 2025-10-27 10:46 | XMS_ITS ---
Author Name Sherry Lucio NP Address [address] [place] [address] Phone [phone] [facility] Care Team Providers Care Vp Outcomes Name Role Phone Sherry Luico Unavailable [phone] Reason for Referral Not Available Allergies, adverse [...] No Data Available BD AUTOSHIELD DUO NDL [id number] USE WITH INSULIN TWICE DAILY 2022-09-05 No Data Meseret ilable Benazepril 20 mg Tab TAKE 1 TABLET (20 M G) BY MOUTH IN THE MORNING. DC BENAZEPRIL/HCTZ 2022-11-16 No Data Available Lantus SoloStar 100 UNIT/ML Solution Pen-injector INJECT 18 UNITS SUBCUTANEOUSLY ONCE DAILY 2023-05-31 No Data Available amLODIPine Besylate 10 mg Tab TAKE 1/2 TABLET BY MOUTH DAILY 2022-08-24 No Data Available Udpoarnvor-HTQQ-Lzjxwukq 50/325/40 mg Tab TAKE 1 TABLET BY [...] No Data Available BD AUTOSHIELD DUO NDL [id number] USE WITH INSULIN TWICE DAILY 2023-12-25 No [...] episode of vomiting this am. [facility] tested member this am and she [...] health RN. Continue to push pedialite and potato picker zofran. f/u sched 01/21/24-call CB 04/06 [...] joint pain increased [facility]. [facility] as needed for any acute or disease education needs that may arise 04/06.what should be done when the member calls: see each individual diagnosis for contingency plan Encounters Encounters Type Facility Date of Service Diagnosis/Co mplaint New patient,40-59min; chronic exacerbation, 2 stable chronic or 1 acute illness add add modifier 95 for video (do not use for phone, instead use 08167-54) [facility] [place] 12/04/2023 Severe persistent asthma, uncomplicatedBenign paroxysmal vertigo, [...] (do not use for phone, instead use 59451-33) [facility] ([place]) 12/04/2023 New patient,40-59min; chronic exacerbation, 2 stable chronic or 1 acute illness add add modifier 95 for video (do not use for phone, instead use 56803-87) [facility] ([place]) 12/04/2023 New patient,40-59min; chronic exacerbation, 2 stable chronic or 1 acute illness add add modifier 95 for video (do not use for phone, instead use 06464-80) [facility] ([place]) 12/04/2023 New patient,40-59min; chronic exacerbation, 2 stable chronic or 1 acute illness add add modifier 95 for video (do not use for phone, instead use 96596-61) [facility] ([place]) 12/04/2023 New patient,40-59min; chronic exacerbation, 2 stable chronic or 1 acute illness add add modifier 95 for video (do not use for phone, instead use 09872-60) [facility] ([place]) 12/04/2023 New patient,40-59min; chronic exacerbation, 2 stable chronic or 1 acute illness add add modifier 95 for video (do not use for phone, instead use 43197-73) [facility] ([place]) 12/04/2023 New patient,40-59min; chronic exacerbation, 2 stable chronic or 1 acute illness add add modifier 95 for video (do not use for phone, instead use 06732-91) [facility] ([place]) 12/04/2023 New patient,40-59min; chronic exacerbation, 2 stable chronic or 1 acute illness add add modifier 95 for video (do not use for phone, instead use 41271-11) [facility] ([place]) 12/04/2023 New patient,40-59min; chronic exacerbation, 2 stable chronic or 1 acute illness add add modifier 95 for video (do not use for phone, instead use 09121-26) [facility] ([place]) 12/04/2023 No Data Available [facility] ([place]) 01/15/2024 Severe persistent asthma, uncomplicatedUnspecified chronic bronchitis No Data Available [facility], ([place]) 01/15/2024 No Data Available [facility] ([place]) 01/17/2024 Severe persistent asthma, uncomplicatedUnspecified chronic bronchitisBenign [...] and other health care No Data Available [facility] ([place]) 01/17/2024 No Data Available [facility] ([place]) 01/17/2024 No Data Available [facility] ([place]) 01/17/2024 No Data Available [facility] ([place]) 01/18/2024 Severe persistent asthma, uncomplicatedUnspecified chronic bronchitisUnspecified [...] and other health care No Data Available [facility] ([place]) 01/18/2024 No Data Available [facility] ([place]) 01/18/2024 No Data Available [facility] ([place]) 01/18/2024 No Data Available [facility] ([place]) 01/21/2024 Severe persistent asthma, uncomplicatedUnspecified chronic bronchitisUnspecified [...] and other health care No Data Available [facility], ([place]) 01/21/2024 Vital Signs Date of Collection Vitals [...] tive Time Current Smoking Status Never smoker 2025-10-12 4 Sex Female History of Procedures Procedures Service Procedure code Service date Servicing provider Phone# New patient,40-59min; chronic exacerbation, 2 stable chronic or 1 acute illness add add modifier 95 for video (do not use for phone, instead use 11259-65) 14231 2023-12-04 No Data Available No Data Availa [...] No Data Avail able No Data Available [id number] 2024-01-15 No Data Available No Data Available [...] No Data Availa ble No Data Available [id number] 2024-01-18 No Data Available No Data Available SBP 130-139 (3075F) 3075F 2024-01-18 No Data Availabl e No Data Available DBP <80 (3078F) 3078F 2024-01-18 No Data Available No Data Available Functional Status Assessed (1170F) 1170F 2024-01-18 No Data Available No Data Avail able No Data Available [id number] 2024-01-21 No Data Available No Data Available [...] episode of vomiting this am. [facility] tested member this am and she [...] episode of vomiting this am. [facility] tested member this am and she [...] health RN. Continue to push pedialite and potato picker zofran. f/u sched 01/21/24-call CB 04/06 [...] episode of vomiting this am. [facility] tested member this am and she [...] health RN. Continue to push pedialite and potato picker zofran. f/u sched 01/21/24-call CB 04/06 [...]
--- OUTSIDE RECORDS SUMMARY | 2025-10-27 10:46 | XMS_ITS | Encounter Summary ---
Author Organization [employer] Address 75 [facility] 7t [place] [address] Care Team Providers Care Manager R D Name Role Phone Keely Wilburn MD Primary Care Provider + Reason for Visit * Reason Onset Date Comments Email paperwork 12/26/2022 Encounter Details Date Type Department Care Team ([facility] st Contact Info) Description 12/26/2022 Telephone [facility] MEDICINE [address] [place], [place] [phone] Keely Wilburn MD [address] [place] [address] Email paperwork Social History Tobacco Use Types [...] not receive anything back, the email is [email or web address] If any information needed please contact Cathryn at [phone] documented in this encounter Plan of Treatment Upcoming Encounters Date Type Department Care Team (Late st Contact Info) Description 10/29/2025 10:30 AM EST Office Visit [facility] MEDICINE [address] [place] [address] Keely Wilburn MD [address] [place] [phone] documented as of this encounter Visit Diagnoses Not on filedocumented in this encounter Care Teams Manager R D Relationship Specialty Start Date End Date Keely Wilburn MD [address] [place] [phone] PCP - General Family Medicine 10/27/19 [employer] 08/06/24 documented as of this encounter
--- OUTSIDE RECORDS SUMMARY | 2025-10-27 10:46 | XMS_ITS | Encounter Summary ---
Author Organization [employer] Address 75 [facility] 7t [place] [address] Care Team Providers Care Neuropsychiatric Aide Name Role Phone Keely Wilburn MD Primary Care Provider + Encounter Details Date Type Department Care Team (Late Contact Info) Description 07/10/2023 Telephone [facility] MEDICINE [address] [place] [address] [phone] Katty Gutierrez LPN Social History Tobacco Use [...] 10:30 AM EST Office Visit [facility] MEDICINE [address] [place] [address] [phone] Keely Wilburn MD [address] [place] [address] documented as of this encounter Visit Diagnoses Not on filedocumented in this encounter Care Teams Neuropsychiatric Aide Relationship Specialty Start Date End Date Keely Wilburn MD [address] [place] [phone] PCP - General Family Medicine 10/27/19 [employer] 08/06/24 documented as of this encounter
--- OUTSIDE RECORDS SUMMARY | 2025-10-27 10:46 | XMS_ITS | Encounter Summary ---
Author Organization [employer] Address 75 [facility] 7t [place] [address] Care Team Providers Care Redipper Name Role Phone Keely Wilburn MD Primary Care Provider + Reason for Visit * Reason Onset Date Comments Referral 12/08/2024 order 12/08/2024 Encounter Details Date Type Department Care Team (Late st Contact Info) Description 12/08/2024 Telephone [facility] MEDICINE [address] [place], [place] [phone] Keely Wilburn MD [address] [place], [place] [phone] Referral; order Social History Tobacco Use Types [...] No more info provided. Any questions contact Aslhyn [employer] documented in this encounter Plan of Treatment Upcoming Encounters Date Type Department Care Team ([facility] st Contact Info) Description 10/29/2025 10:30 AM EST Office Visit [facility] MEDICINE [address] [place] [address] Keely Wilburn MD [address] [place] [address] documented as of this encounter Visit Diagnoses Not on filedocumented in this encounter Care Teams Redipper Relationship Specialty Start Date End Date Keely Wilburn MD [address] [place] [address] PCP - General Family Medicine 10/27/19 [employer] 08/06/24 documented as of this encounter
--- OUTSIDE RECORDS SUMMARY | 2025-10-27 10:47 | XMS_ITS | Encounter Summary ---
Author Organization [employer] Address 75 [facility] 7t [place] [address] Care Team Providers Care Form Raiser Name Role Phone Keely Wilburn MD Primary Care Provider + Reason for Visit * Reason Comments Med Refill Encounter Details Date Type Department Care Team (Late st Contact Info) Description 07/22/[address] [facility] MEDICINE [address] [place], [place] [phone] Keely Wilburn MD [address] [place], [place] [phone] Social History Tobacco Use Types Packs/Day Years [...] Description 10/29/2025 10:30 AM EST Office Visit [facility] MEDICINE [address] [place] [phone] Keely Wilburn MD [address] [place] [address] documented as of this encounter Visit Diagnoses Not on filedocumented in this encounter Care Teams Form Raiser Relationship Specialty Start Date End Date Keely Wilburn MD [address] [place] [phone] PCP - General Family Medicine 10/27/19 [employer] 08/06/24 documented as of this encounter
--- OUTSIDE RECORDS SUMMARY | 2025-10-27 10:47 | XMS_ITS | Encounter Summary ---
Author Organization [employer] Address 75 [facility] 7t [place] [address] Care Team Providers Care Target Trimmer Name Role Phone Keely Wilburn MD Primary Care Provider + Reason for Visit * Reason Comments Med Refill Encounter Details Date Type Department Care Team (Late st Contact Info) Description 07/08/2024 Refill [facility] MEDICINE [address] [place], [place] [phone] Keely Wilburn MD [address] [place], [place] [phone] Type 2 diabetes mellitus with hyperglycemia, with long-term current use of insulin ([facility]); Slow transit constipation Social History Tobacco Use [...] AM EST Office Visit [facility] MEDICINE [address] [place] [address] Keely Wilburn MD [address] [place] [address] documented as of this encounter Visit Diagnoses Diagnosis Type 2 diabetes mellitus with hyperglycemia, with long-term current use of insulin (HCC) Slow transit constipation documented in this encounter Care Teams Target Trimmer Relationship Specialty Start Date End Date Keely Wilburn MD [address] [place] [phone] PCP - General Family Medicine 10/27/19 [employer] 08/06/24 documented as of this encounter
--- OUTSIDE RECORDS SUMMARY | 2025-10-27 10:47 | XMS_ITS | Encounter Summary ---
Author Organization [employer] Address [address] [facility] 7t [place] [address] Care Team Providers Care Director Statistical Programming Name Role Phone Keely Wilburn MD Primary Care Provider + Reason for Visit * Reason Comments Med Refill Encounter Details Date Type Department Care Team (Late st Contact Info) Description 08/06/2024 Refill [facility] MEDICINE [address] [place], [place] [phone] Keely Wilburn MD [address] [place], [place] [phone] Benign paroxysmal positional vertigo, unspecified laterality Social [...] Description 10/29/2025 10:30 AM EST Office Visit [facility] MEDICINE [address] [place] [phone] Keely Wilburn MD [address] [place] [address] documented as of this encounter Visit Diagnoses Diagnosis Benign paroxysmal positional vertigo, unspecified laterality documented in this encounter Care Teams Director Statistical Programming Relationship Specialty Start Date End Date Keely Wilburn MD [address] [place] [phone] PCP - General Family Medicine 10/27/19 [employer] 08/06/24 documented as of this encounter
--- OUTSIDE RECORDS SUMMARY | 2025-10-27 10:47 | XMS_ITS | Encounter Summary ---
Author Organization [employer] Address 75 [facility] 7t [place] [address] Care Team Providers Care Plaster Maker Name Role Phone Keely Wilburn MD Primary Care Provider + Reason for Visit * Reason Comments Med Refill Encounter Details Date Type Department Care Team (Late st Contact Info) Description 07/09/2024 Refill [facility] MEDICINE [address] [place], [place] [phone] Keely Wilburn MD [address] [place], [place] [phone] Slow transit constipation; Type 2 diabetes mellitus with hyperglycemia, with long-term current use of insulin ([facility]) Social History Tobacco Use Types [...] Description 10/29/2025 10:30 AM EST Office Visit [facility] MEDICINE [address] [place] [address] Keely Wilburn MD [address] [place] [address] documented as of this encounter Visit Diagnoses Diagnosis Slow transit constipation Type 2 diabetes mellitus with hyperglycemia, with long-term current use of insulin (HCC) documented in this encounter Care Teams Plaster Maker Relationship Specialty Start Date End Date Keely Wilburn MD [address] [place] [phone] PCP - General Family Medicine 10/27/19 [employer] 08/06/24 documented as of this encounter
--- OUTSIDE RECORDS SUMMARY | 2025-10-27 10:47 | XMS_ITS | Encounter Summary ---
Author Organization [employer] Address 75 [facility] 7t [place] [address] Care Team Providers Care Hot Tar Roofer Helper Name Role Phone Keely Wilburn MD Primary Care Provider + Reason for Visit * Reason Comments Med Refill Encounter Details Date Type Department Care Team (Late st Contact Info) Description 08/18/2024 Refill [facility] MEDICINE [address] [place], [place] [phone] Keely Wilburn MD [address] [place], [place] [phone] Benign paroxysmal positional vertigo, unspecified laterality; Type 2 diabetes mellitus with other specified complication, unspecified whether prison insulin use ([facility]) Social History Tobacco Use Types [...] 10/29/2025 10:30 AM EST Office Visit [facility] MEDICINE [address] [place] [phone] Keely Wilburn MD [address] [place] [address] documented as of this encounter Visit Diagnoses Diagnosis Benign paroxysmal positional vertigo, unspecified laterality Type 2 diabetes mellitus with other specified complication, unspecified whether prison insulin use (HCC) documented in this encounter Care Teams Hot Tar Roofer Helper Relationship Specialty Start Date End Date Keely Wilburn MD [address] [place] [phone] PCP - General Family Medicine 10/27/19 [employer] 08/06/24 documented as of this encounter
--- OUTSIDE RECORDS SUMMARY | 2025-10-27 10:47 | XMS_ITS | Encounter Summary ---
Author Organization [employer] Address 75 [facility] 7t [place] [address] Care Team Providers Care Youth Care Professional Name Role Phone Keely Wilburn MD Primary Care Provider + Reason for Visit * Reason Comments Med Refill Encounter Details Date Type Department Care Team (Late st Contact Info) Description 08/13/2024 Refill [facility] MEDICINE 230 [place], [place] [phone] Keely Wilburn MD [address] [place], [place] [phone] Benign paroxysmal positional vertigo, unspecified laterality; Type 2 diabetes mellitus with other specified complication, unspecified whether longterm insulin use ([facility]) Social History Tobacco Use Types Packs/Day Years [...] AM EST Office Visit [facility] MEDICINE [address] [place] [phone] Keely Wilburn MD [address] [place] [address] documented as of this encounter Visit Diagnoses Diagnosis Benign paroxysmal positional vertigo, unspecified laterality Type 2 diabetes mellitus with other specified complication, unspecified whether longterm insulin use (HCC) documented in this encounter Care Teams Youth Care Professional Relationship Specialty Start Date End Date Keely Wilburn MD [address] [place] [phone] PCP - General Family Medicine 10/27/19 [employer] 08/06/24 documented as of this encounter
--- OUTSIDE RECORDS SUMMARY | 2025-10-27 10:47 | XMS_ITS | Encounter Summary ---
Author Organization [employer] Address 75 [facility] 7t [place] [address] Care Team Providers Care Assessment Specialist Name Role Phone Keely Wilburn MD Primary Care Provider + Reason for Visit * Reason Comments Med Refill Encounter Details Date Type Department Care Team (Late st Contact Info) Description 08/20/2024 Refill [facility] MEDICINE [address] [place], [place] [phone] Keely Wilburn MD [address] [place], [place] [phone] Benign paroxysmal positional vertigo, unspecified laterality; Type 2 diabetes mellitus with other specified complication, unspecified whether fci insulin use ([facility]) Social History Tobacco [...] 10/29/2025 10:30 AM EST Office Visit [facility] MEDICINE [address] [place] [address] Keely Wilburn MD [address] [place] [address] documented as of this encounter Visit Diagnoses Diagnosis Benign paroxysmal positional vertigo, unspecified laterality Type 2 diabetes mellitus with other specified complication, unspecified whether fci insulin use (HCC) documented in this encounter Care Teams Assessment Specialist Relationship Specialty Start Date End Date Keely Wilburn MD [address] [place] [phone] PCP - General Family Medicine 10/27/19 [employer] 08/06/24 documented as of this encounter
--- OUTSIDE RECORDS SUMMARY | 2025-10-27 10:47 | XMS_ITS | Encounter Summary ---
Author Organization [employer] Address 75 [facility] 7t [place] [address] Care Team Providers Care Photographic Hand Developer Name Role Phone Keely Wilburn MD Primary Care Provider + Encounter Details Date Type Department Care Team (Late st Contact Info) Description 05/07/2024 Telephone [facility] MEDICINE [address] [place], [place] [phone] Keely Wilburn MD [address] [place], [place] [phone] Social History Tobacco Use Types Packs/Day Years [...] Miscellaneous Notes * Telephone Encounter - Analy Schreer - 05/07/2024 1:29 PM EDT Tc From Basilio hidalgo requesting Face to face referral Med list last office visit . Best contact # if there is any questions [phone] documented in this encounter Plan of Treatment Upcoming Encounters Date Type Department Care Team (Late st Contact Info) Description 10/29/2025 10:30 AM EST Office Visit [facility] MEDICINE [address] [place] [phone] Keely Wilburn MD [address] [place] [address] documented as of this encounter Visit Diagnoses Not on filedocumented in this encounter Care Teams Photographic Hand Developer Relationship Specialty Start Date End Date Keely Wilburn MD [address] [place] [phone] PCP - General Family Medicine 10/27/19 [employer] 08/06/24 documented as of this encounter
--- OUTSIDE RECORDS SUMMARY | 2025-10-27 10:47 | XMS_ITS | Encounter Summary ---
Author Organization [employer] Address 75 [facility] 7t [place] [address] Care Team Providers Care Window Cutter Name Role Phone Keely Wilburn MD Primary Care Provider + Reason for Visit * Reason Comments Med Refill Encounter Details Date Type Department Care Team (Late st Contact Info) Description 08/11/2024 Refill [facility] MEDICINE 230 [place], [place] [phone] Keely Wilburn MD [address] [place], [place] [phone] Benign paroxysmal positional vertigo, unspecified laterality Social [...] Description 10/29/2025 10:30 AM EST Office Visit [facility] MEDICINE [address] [place] [phone] Keely Wilburn MD [address] [place] [phone] documented as of this encounter Visit Diagnoses Diagnosis Benign paroxysmal positional vertigo, unspecified laterality documented in this encounter Care Teams Window Cutter Relationship Specialty Start Date End Date Keely Wilburn MD [address] [place] [phone] PCP - General Family Medicine 10/27/19 [employer] 08/06/24 documented as of this encounter
--- OUTSIDE RECORDS SUMMARY | 2025-10-27 10:47 | XMS_ITS | Encounter Summary ---
Author Organization [employer] Address [address] [facility] [address]t [place] [address] Care Team Providers Care Glue Mixer Name Role Phone Keely Wilburn MD Primary Care Provider + Reason for Visit * Reason Comments Med Refill Encounter Details Date Type Department Care Team (Late st Contact Info) Description 07/08/2024 Refill [facility] [address] [place], [place] [phone] Anusha Real MD [address] [place], [place] [phone] Benign paroxysmal positional vertigo, unspecified laterality Social [...] [facility] [address] [place] [phone] Keely Wilburn MD [address] [place] [phone] documented as of this encounter Visit Diagnoses Diagnosis Benign paroxysmal positional vertigo, unspecified laterality documented in this encounter Care Teams Glue Mixer Relationship Specialty Start Date End Date Keely Wilburn MD [address] [place] [phone] PCP - General Family Medicine 10/27/19 FX Aligned 08/06/24 documented as of this encounter
--- OUTSIDE RECORDS SUMMARY | 2025-10-27 10:47 | XMS_ITS | Encounter Summary ---
Author Organization [employer] Address [address] [facility] [address]t [place] [address] Care Team Providers Care Passenger Train Braker Name Role Phone Keely Wilburn MD Primary Care Provider + Reason for Visit * Reason Comments Med Refill Encounter Details Date Type Department Care Team (Late st Contact Info) Description 05/08/2024 Refill [facility] [address] [place], [place] [phone] Keely Wilburn MD [address] [place], [place] [phone] Osteopenia of neck of femur, unspecified laterality [...] 10/29/2025 10:30 AM EST Office Visit [facility] [address] [place] [phone] Keely Wilburn MD [address] [place] [phone] documented as of this encounter Visit Diagnoses Diagnosis Osteopenia of neck of femur, unspecified laterality documented in this encounter Care Teams Passenger Train Braker Relationship Specialty Start Date End Date Keely Wilburn MD [address] [place] [phone] PCP - General Family Medicine 10/27/19 [employer] 08/06/24 documented as of this encounter
--- OUTSIDE RECORDS SUMMARY | 2025-10-27 10:47 | XMS_ITS | Encounter Summary ---
Author Organization [employer] Address [address] [facility] [address]t [place] [address] Care Team Providers Care Plastic Sewer Name Role Phone Keely Wilburn MD Primary Care Provider + Reason for Visit * Reason Comments Med Refill Encounter Details Date Type Department Care Team (Late st Contact Info) Description 07/16/2024 Refill [facility] [address] [place], [place] [phone] Keely Wilburn MD [address] [place], [place] [phone] Type 2 diabetes mellitus with hyperglycemia, with long-term current use of insulin ([facility]) Social History Tobacco Use Types Packs/Day [...] Description 10/29/2025 10:30 AM EST Office Visit [facility] [address] [place] [phone] Keely Wilburn MD [address] [place] [phone] documented as of this encounter Visit Diagnoses Diagnosis Type 2 diabetes mellitus with hyperglycemia, with long-term current use of insulin (HCC) documented in this encounter Care Teams Plastic Sewer Relationship Specialty Start Date End Date Keely Wilburn MD [address] [place] [phone] PCP - General Family Medicine 10/27/19 [employer] 08/06/24 documented as of this encounter
== END 2025-10-27 10:04 | disposition home or self-care (01) ==
LOC: HO.RHES 09:20
PROVIDERS: PCP Internal Medicine; Visit Provider Student in an Organized Health Care Education/Training Program
DX: M11.20 Other chondrocalcinosis, unspecified site (principal); R76.89 Other specified abnormal immunological findings in serum; M85.89 Other specified disorders of bone density and structure, multiple sites; Z79.899 Other long term (current) drug therapy
CPT/HCPCS: 99213; G2211

== ENCOUNTER → 2025-10-27 09:20 | Outpatient (BNVA) | payer OTHER, SELFPAY | PROVIDERS: PCP Internal Medicine; Visit Provider Student in an Organized Health Care Education/Training Program | DX: M11.231 Other chondrocalcinosis, right wrist (principal); M11.232 Other chondrocalcinosis, left wrist; M85.89 Other specified disorders of bone density and structure, multiple sites; M77.01 Medial epicondylitis, right elbow; Z79.899 Other long term (current) drug therapy | CPT/HCPCS: 99212 ==